=== PATIENT | male | born 2000 | race Two or more races ===

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

== ENCOUNTER 2022-01-14 10:16 | Outpatient (REF) | payer OTHER, SELFPAY ==
--- NOTE | ~2022-01-14 | XR_ITS ---
EXAMINATION: XR BILATERAL HIPS WITH AP PELVIS CLINICAL INFORMATION: Right hip pain COMPARISON: None TECHNIQUE: AP view of the pelvis and single views of each hip were obtained. FINDINGS: The bones and soft tissues are normal. No fracture. Sacroiliac and hip joints are normal. Pubic symphysis is normal. No abnormal soft tissue calcifications. XR/XR hip BI w PEL1V IMPRESSION: Normal pelvis and hips.
== END 2022-01-14 10:17 | disposition home or self-care (01) ==
LOC: HO.XRAY 10:16
PROVIDERS: PCP Pediatrics; Visit Provider Student in an Organized Health Care Education/Training Program
DX: M25.551 Pain in right hip (principal)
CPT/HCPCS: 73521

== ENCOUNTER 2022-07-19 12:28 | Outpatient (REF) | payer MEDICAID, SELFPAY ==
[2022-07-19 14:05] LABS: Appearance Urine Clear; Color Urine Yellow; Glucose Urine UA Negative (Negative); Leukocyte Esterase Urine Negative (Negative); Nitrite Urine Negative (Negative); PH 6.5 (5.0-9.0); Specific Gravity - Urine 1.015 (1.005-1.025); UMIC TRIGGER UACC YES; Urine Blood Trace (Negative); Urine Ketones Negative (Negative); Urine Protein Negative (Neg-Trace)
[2022-07-19 14:11] LABS: Bacteria Urine None Seen (None Seen); Hyaline Casts Urine 0-2 /LPF (0-2); RBC Urine 0-2 /HPF (0-2); Squamous Epithelial Cell Urine 0-2 /HPF (0-2); WBC Urine 0-5 /HPF (0-5)
[2022-07-19 15:19] LABS: Syphilis Screen Nonreactive (Nonreactive)
[2022-07-19 16:05] LABS: CT PCR NOT DETECTED (Not Detect.); NG PCR NOT DETECTED (Not Detect.)
[2022-07-21 04:33] LABS: HBc Num1 0.05 S/CO (0.00-0.79); HBsAGNum1 0.43 S/CO (0.00-0.99); HIV AB/AG Nonreactive (Nonreactive); HIV Num 1 0.09 S/CO (0.00-0.99); Hepatitis B Core Antibody Nonreactive (Nonreactive); Hepatitis B Surface Antigen Negative (Negative); ~HepC Num1 0.18 S/CO (0.00-0.79); ~Hepatitis B Surface Antibody NONREACTIVE (Nonreactive); ~Hepatitis C Antibody Nonreactive (Nonreactive)
== END 2022-07-19 12:29 | disposition home or self-care (01) ==
LOC: HO.WFDLDS 12:28
PROVIDERS: Visit Provider Nurse Practitioner Family
DX: Z11.3 Encounter for screening for infections with a predominantly sexual mode of transmission (principal); Z11.4 Encounter for screening for human immunodeficiency virus [HIV]
CPT/HCPCS: 0353U; 36415; 81001; 81003; 86704; 86706; 86780; 86803; 87340; 87389

== ENCOUNTER 2022-07-20 10:04 | Outpatient (REF) | payer MEDICAID, SELFPAY | END 2022-07-20 10:05 | disposition home or self-care (01) | LOC: HO.LAB 10:04 | PROVIDERS: Visit Provider Nurse Practitioner Family | DX: Z13.89 Encounter for screening for other disorder (principal) ==

== ENCOUNTER 2022-08-02 12:42 | Outpatient (REF) | payer MEDICAID, SELFPAY ==
[2022-08-02 12:52] LABS: MANUAL DIFF FLAG NO
[2022-08-02 13:17] LABS: Basophils Absolute Auto 0.1 X10*3/uL (0.0-0.2); Basophils Percent Auto 0.7 % (0-2); Eosinophils Absolute Auto 0.5 X10*3/uL (0.0-0.4); Eosinophils Percent Auto 6.3 % (0-4); Hematocrit 45.2 % (42.0-52.0); Hemoglobin 14.7 g/dl (14.0-18.0); Imm Gran Abs Auto 0.02 X10*3/uL (0.00-0.03); Imm Gran Pct Auto 0.3 % (0.0-0.4); Lymphocytes Absolute Auto 1.7 X10*3/uL (1.2-4.9); Lymphocytes Percent Auto 22.2 % (20-40); Mean Corpuscular HGB Conc 32.5 g/dl (31.0-36.0); Mean Corpuscular Hemoglobin 27.5 pg (27.0-33.0); Mean Corpuscular Volume 84.5 fL (80.0-98.0); Mean Platelet Volume 9.8 fL (9.4-12.4); Monocytes Absolute Auto 0.6 X10*3/uL (0.1-1.2); Monocytes Percent Auto 7.5 % (2-11); Neutrophils Absolute Auto 4.7 x10*3/uL (2.0-8.3); Platelet Count 325 X10*3/uL (160-400); Red Blood Count 5.35 X10*6/uL (4.60-5.80); Red Cell Distribution Width 13.3 % (11.0-16.0); White Blood Count 7.5 X10*3/uL (4.8-10.8)
[2022-08-02 13:53] LABS: Alanine Aminotransferase 28 U/L (0-40); Albumin Level 4.8 g/dL (3.5-5.0); Alkaline Phosphatase 72 U/L (39-117); Anion Gap 12 (12-20); Aspartate Amino Transferase 21 U/L (5-37); Bilirubin Total 1.7 mg/dL (0.0-1.0); Blood Urea Nitrogen 16 mg/dL (9-16); Calcium 10.2 mg/dL (8.4-10.2); Carbon Dioxide 29 mmol/L (22-29); Chloride 102 mmol/L (96-108); Cholesterol 150 mg/dL; Estimated Glomerular Filt Rate > 60; Glucose Fasting 90 mg/dL (60-99); HDL Cholesterol 51 mg/dL; LDL Cholesterol Calculated 85 mg/dl; Potassium 4.6 mmol/L (3.3-5.1); Sodium 138 mmol/L (135-145); Total Protein 7.7 g/dL (6.5-8.0); Triglycerides 72 mg/dL
[2022-08-02 14:10] LABS: TSH reflex Free T4 0.29 uIU/mL (0.32-4.0)
== END 2022-08-02 12:43 | disposition home or self-care (01) ==
LOC: HO.LAB 12:42
PROVIDERS: PCP Nurse Practitioner Family; Visit Provider Nurse Practitioner Family
DX: Z00.00 Encounter for general adult medical examination without abnormal findings (principal); J45.909 Unspecified asthma, uncomplicated; F41.8 Other specified anxiety disorders; R42 Dizziness and giddiness; H61.23 Impacted cerumen, bilateral
CPT/HCPCS: 36415; 80053; 80061; 84439; 84443; 85025

== ENCOUNTER 2022-10-08 00:42 | Emergency (ER) | payer OTHER, SELFPAY ==
[2022-10-08 01:05] VITALS: BP 121/70; PULSE 120; RESP 20; TEMP 38.2; O2SAT 99; BMI 28.3
--- OUTSIDE RECORDS SUMMARY | 2022-10-08 02:42 | XMS_ITS | Continuity of Care Document ---
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 Role Phone Inan Ordaz Primary Care Physician [phone] Encounter [facility] Date(s): 03/16/20 - 03/17/[address] [address]- Discharge Disposition: A-D/C Home Attending Physician: Freeman Cuevas MD Admitting Physician: Lina MARIEE, Ora Markham Referring Physician: Not on Staff, Referring MD Allergies, Adverse Reactions, Alerts Substance Reaction Severity Status ibuprofen 1 Active Dogs Active Bananas Active Dust Active 1Pt reports GI upset and vomiting each time he takes this medication Immunizations Not Given Vaccine Date Status Refusal Reason influenza virus vaccine, inactivated 12/28/17 Not Given Parent Or Guardian Refuses Medications Aerochamber See Instructions, # 2 each, Maintenance, for use with albuterol inhaler, 12/30/17 9:54:40 EDT, Compound Start Date: 12/30/17 Status: Ordered albuterol 90 mcg/inh inhalation powder See Instructions, PRN Wheezing/Shortness of Breath, 2-6 puffs every four hours as needed, # 2 each,0 Refills, Maintenance, 12/30/17 9:53:53 EDT, Powder, 2-6 puffs every four hours as needed,PRN:Wheezing/Shortness of Breath Start Date: 12/30/17 Status: Ordered aluminum hydroxide/magnesium hydroxide/simethicone 400 mg-400 mg-40 mg/5 mL oral suspension 10 mL, By Mouth, 4 times a day, PRN Dyspepsia, # 150 mL, 0 Refills, Acute 04/26/20 14:54:00 EST, 03/17/20 14:52:00 EST, Suspension, [facility], Partial fill upon patient request if the prescription is for a schedule II opioid drug., 10 m... Start Date: 03/17/20 Stop Date: 04/26/20 Status: Ordered dicyclomine 10 mg oral capsule 1 capsule = 10 mg, By Mouth, 2 times a day, # 60 capsule, 0 Refills, Maintenance, 03/17/20 14:52:00EST, Capsule, [facility], Partial fill upon patient request if the prescription is for a schedule II opioid drug., 163, cm, 03/17/20 11:5... Start Date: 03/17/20 Status: Ordered MiraLax oral powder for reconstitution = 17 Gm, By Mouth, Daily, dissolve in 6 ounces of water before taking, # 255 Gm, 0 Refills, Maintenance, 02/23/20 1:43:00 EST, REC Powder, [id number], Partial fill upon patient request if theprescription is for a schedule II opioid drug., 17... Start Date: 02/23/20 Status: Ordered omeprazole 20 mg oral enteric coated capsule 1 capsule = 20 mg, By Mouth, Daily, # 30 capsule, 0 Refills, Maintenance, 02/23/20 1:40:00 EST, EC Capsule, [id number], Partial fill upon patient request if the prescription is for a scheduleII opioid drug., 166, cm, 02/22/20 21:34:00 EST, He... Start Date: 02/23/20 Status: Ordered Problem List No Known Problems Results Radiology Reports * Exam Date Time Procedure Performing Provider Status 03/16/20 3:55 PM Abdomen Comp Inc Dec ub and/or Erect Ngoc Martinez; Auth (Verified) Notes: (Abdomen Comp Inc Decub and/or Erect) Reason For Exam: Pain RESULT: Abdomen Comp Inc Decub and/or Erect Abdomen Comp Inc Decub and/or Erect INDICATION/CLINICAL QUESTION: Pain; Clinical Question(s): Free Air. Free Air COMPARISON: CT from earlier today. FINDINGS: Normal bowel gas pattern. No evidence of obstruction. Enteric contrast throughout the colon. Contrast in the bladder from prior CT. No evidence of pneumoperitoneum. No organomegaly, masses or calcifications. No acute bone findings. No radiopaque foreign body. IMPRESSION: No evidence of pneumoperitoneum, bowel obstruction, or radiopaque foreign body. WSN: [id number] Ordering Physician: Jolene Savage Dictated By: Jonathan Crump MD Dictated Date/Time: 03/16/20 4:11 pm Reviewed By: Jonathan Crump MD Signed By: Jonathan Crump MD Signed Date/Time: 03/16/20 4:11 pm Transcribed By: JA Transcribed Date/Time: 03/16/20 4:09 pm Vital Signs Most recent to oldest [Reference Range]: 1 2 3 Height 163 cm (03/17/20 4:26 PM) 163 cm (03/17/20 11:56 AM) 163 cm (03/17/20 8:13 AM) Weight 61.9 kg (03/16/20 12:48 PM) 62.0 kg (03/16/20 12:26 PM) 62.0 kg (03/16/20 10:12 AM) Oxygen Saturation [94-100 %] 99 % (03/17/20 4:26 PM) 100 % (03/17/20 11:56 AM) 100 % (03/17/20 8:13 AM) Pulse Rate [55-90 bpm] 53 bpm *L* (03/17/20 4:26 PM) 51 bpm *L* (03/17/20 11:56 AM) 54 bpm *L* (03/17/20 8:13 AM) Body Mass Index [18.5-24.99] 23.3 (03/16/20 12:48 PM) 23.05 (03/16/20 12:26 PM) 23.05 (03/16/20 10:12 AM) Blood Pressure [80-130/50-80 mm Hg] 113/61mm Hg (03/17/20 4:26 PM) 132/70mm Hg *H* (03/17/20 11:56 AM) 130/59mm Hg (03/17/20 8:13 AM) Respiratory Rate [16-30 br/min] 18 br/min (03/17/20 4:26 PM) 18 br/min (03/17/20 11:56 AM) 16 br/min (03/17/20 8:13 AM) Temperature [96.8-100.4 DegF] 98.2 DegF (03/17/20 4:26 PM) 98.0 DegF (03/17/20 11:56 AM) 98.1 DegF (03/17/20 8:13 AM) Mode of Delivery (Oxygen) Room air (03/17/20 4:26 PM) Room air (03/17/20 11:56 AM) Room air (03/17/20 8:13 AM) Blood pressure sites Arm, right (03/17/20 4:26 PM) Arm, right (03/17/20 11:56 AM) Arm, right (03/17/20 8:13 AM) Temperature Route Oral (03/17/20 4:26 PM) Oral (03/17/20 11:56 AM) Oral (03/17/20 8:13 AM) Dry Weight 61.9 kg (03/16/20 12:48 PM) 62.0 kg (03/16/20 12:26 PM) 62.0 kg (03/16/20 10:12 AM) Weight Obtained Via Standing scale (03/16/20 12:48 PM) Standing scale (03/16/20 4:09 AM) Dry Weight Obtained Via Standing scale (03/16/20 12:48 PM) Standing scale (03/16/20 4:09 AM)
--- OUTSIDE RECORDS SUMMARY | 2022-10-08 02:42 | XMS_ITS | Continuity of Care Document ---
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 Role Phone Renae Tovar MDh Primary Care Physician [place] [facility] [place](s[place] 06/29/21 - 06/30/[address] [address]- Encounter Diagnosis Abdominal pain(Final) - 06/30/21 Constipation(Final) - 06/30/21 Discharge Disposition: A-D/C Home Attending Physician: Ponce Gordillo MD Admitting Physician: Ponce Gordillo MD Referring Physician: Not on Staff, Referring MD Allergies, Adverse Reactions, Alerts Substance Reaction Severity Status ibuprofen 1 Active aspirin Unknown body region Active Dust Active Avocado Unknown body region Active Bananas Active Dogs Active 1Pt reports GI upset and vomiting [...] Date: 12/30/17 Status: Ordered aluminum hydroxide/magnesium hydroxide/simethicone 200 mg-200 mg-20 mg/5 mL oral suspension 10 mL, By Mouth, 4 times a day, PRN for control of stomach acid, # 400 mL, 0 Refills, Maintenance, 06/26/21 23:06:00 EDT, Suspension, [facility]/pharmacy #[id number], Partial fill upon patient request if the prescription is for a schedule II opioid drug., 10 mL By... Start Date: 06/26/21 Status: Ordered dicyclomine 10 mg oral capsule 1 capsule = 10 mg, By Mouth, 2 times a day, # 60 capsule, 0 Refills, Maintenance, 03/17/20 14:52:00EST, Capsule, [facility], Partial fill upon patient request if the prescription is for a schedule II opioid drug., 163, cm, 03/17/20 11:5... Start Date: 03/17/20 Status: Ordered famotidine 20 mg oral tablet 20 mg, 1, tablet, By Mouth, Daily, # 30 tablet, Refills 0, Tot. Refills 0, Maintenance, 06/30/21 6:18:00 EDT, Route to Pharmacy Electronically, [facility]/pharmacy #[id number], Partial fill upon patient request if the prescription is for a schedule II opioid drug.... Start Date: 06/30/21 Stop Date: 07/30/21 Status: Ordered Milk of Magnesia 8% oral suspension 30 mL = 2.4 Gm, By Mouth, Daily, PRN for constipation, for 3 days, # 100 mL, 0 Refills, Acute 07/03/21 6:24:00 EDT, 06/30/21 6:24:00 EDT, Suspension, [facility]/pharmacy #[id number], Partial fill upon patient request if the prescription is for a schedule II opioid... Start Date: 06/30/21 Stop Date: 07/03/21 Status: Ordered MiraLax oral powder for reconstitution = 17 Gm, By Mouth, Daily, for 30 days, dissolve in water or another drink before taking. Increase to two capfuls daily if needed to have one soft bowel movement daily, # 527 Gm, 0 Refills, Acute 07/30/21 6:18:00 EDT, 06/30/21 6:18:00 EDT, REC Powder,... Start Date: 06/30/21 Stop Date: 07/30/21 Status: Ordered MiraLax oral powder for reconstitution = 17 Gm, By Mouth, Daily, dissolve in 6 ounces of water before taking, # 255 Gm, 0 Refills, Maintenance, 02/23/20 1:43:00 EST, REC Powder, [id number], Partial fill upon patient request [...] Exam Date Time Procedure Performing Provider Status 06/30/21 6:11 AM Abdomen Comp Inc Dec ub and/or Erect Annie Villar; Auth (Verified) Notes: (Abdomen Comp Inc Decub and/or Erect) Reason For Exam: Pain RESULT: Abdomen Comp Inc Decub and/or Erect Abdomen Comp Inc Decub and/or Erect 1 view INDICATION/CLINICAL QUESTION: Hx of Present Illness: Pt with history of IBS with flaring x5 days. States he has been unable to eat x5-6 days. Pt c o difuse abdominal pain. Any PO exacerbates the pain. Now c o general fatigue. Pt also c o constipation.; Reason: Pain; Clinical Question(s): Obstruction; free air; Special Instructions: Flat COMPARISON: 03/16/2020 FINDINGS: No dilated bowel loops are seen. A moderate stool burden is noted within the colon. There are no air-fluid levels. No free air is seen. The osseous structures are unremarkable. IMPRESSION: Nonspecific, nonobstructive bowel gas pattern. WSN: [id number] Ordering Physician: Meredith Calvert Dictated By: Maria Victoria Pat MD Dictated Date/Time: 06/30/21 7:19 am Reviewed By: Maria Victoria Pat MD Signed By: Maria Victoria Pat MD Signed Date/Time: 06/30/21 7:19 am Transcribed By: JA Transcribed Date/Time: 06/30/21 7:18 am Vital Signs Most recent to oldest [Reference Range]: 1 2 3 Height 165 cm (06/29/21 5:11 PM) 165 cm (06/29/21 2:38 PM) Oxygen Saturation [94-100 %] 100 % (06/30/21 7:31 AM) 98 % (06/30/21 5:42 AM) 97 % (06/30/21 4:45 AM) Pulse Rate [55-90 bpm] 61 bpm (06/30/21 7:31 AM) 48 bpm *L* (06/30/21 5:42 AM) 46 bpm *L* (06/30/21 4:45 AM) Blood Pressure [90-138/55-84 mm Hg] 136/74mm Hg (06/30/21 7:31 AM) 114/69mm Hg (06/30/21 5:42 AM) 110/66mm Hg (06/30/21 4:45 AM) Respiratory Rate [16-30 br/min] 20 br/min (06/30/21 7:31 AM) 13 br/min *L* (06/30/21 5:42 AM) 14 br/min *L* (06/30/21 4:45 AM) Temperature [96.8-100.4 DegF] 97.7 DegF (06/30/21 2:46 AM) 98.4 DegF (06/30/21 1:16 AM) 98.4 DegF (06/29/21 11:00 PM) Mode of Delivery (Oxygen) Room air (06/30/21 7:31 AM) Room air (06/30/21 5:42 AM) Room air (06/30/21 4:45 AM) Blood pressure sites Arm, right (06/30/21 7:31 AM) Arm, right (06/30/21 5:42 AM) Arm, right (06/30/21 4:45 AM) Temperature Route Oral (06/30/21 2:46 AM) Oral (06/30/21 1:16 AM) Oral (06/29/21 11:00 PM)
--- OUTSIDE RECORDS SUMMARY | 2022-10-08 02:42 | XMS_ITS | Continuity of Care Document ---
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 Phone Renae Tovar MDh Primary Care Physician [place] [facility] [place]04[place] - 07/04/[address] [address]- Encounter Diagnosis Fatigue(Final) - 07/04/21 Abdominal pain(Final) - 07/04/21 Discharge Disposition: A-D/C Home Attending Physician: Shefali Campbell MD Admitting Physician: Shefali Campbell MD Referring Physician: Not on Staff, Referring MD Allergies, Adverse Reactions, Alerts Substance Reaction Severity Status ibuprofen 1 Active aspirin Unknown body region Active Dust Active Bananas Active Avocado Unknown body region Active Dogs Active 1Pt reports GI upset [...] 0 Refills, Maintenance, 06/26/21 23:06:00 EDT, Suspension, [id number], Partial fill upon patient request if the prescription is for a schedule II opioid drug., 10 mL By... Start Date: 06/26/21 Status: Ordered dicyclomine 10 mg oral capsule 1 capsule = 10 mg, By Mouth, 2 times a day, # 60 capsule, 0 Refills, Maintenance, 03/17/20 14:52:00EST, Capsule, [facility], Partial fill upon patient request if the prescription is for a schedule II opioid drug., 163, cm, 03/17/20 11:5... Start Date: 03/17/20 Status: Ordered famotidine 20 mg oral tablet 20 mg, 1, tablet, By Mouth, Daily, # 30 tablet, Refills 0, Tot. Refills 0, Maintenance, 06/30/21 6:18:00 EDT, Route to Pharmacy Electronically, [facility]/pharmacy #[id number], Partial fill upon patient request if [...] Refills, Maintenance, 02/23/20 1:43:00 EST, REC Powder, [facility]/pharmacy #[id number], Partial fill upon patient request if [...] scheduleII opioid drug., 166, cm, 02/22/20 21:34:00 He. FREYA.. Start Date: 02/23/20 Status: Ordered Problem List No Known Problems Vital Signs Most recent to oldest [Reference Range]: 1 2 3 Oxygen Saturation [94-100 %] 100 % (07/04/21 5:15 PM) 99 % (07/04/21 2:58 PM) 99 % (07/04/21 2:52 PM) Pulse Rate [55-90 bpm] 56 bpm (07/04/21 5:15 PM) 69 bpm (07/04/21 2:58 PM) 98 bpm *H* (07/04/21 2:52 PM) Blood Pressure [90-138/55-84 mm Hg] 116/61mm Hg (07/04/21 5:15 PM) 121/62mm Hg (07/04/21 2:58 PM) Respiratory Rate [16-30 br/min] 13 br/min *L* (07/04/21 5:15 PM) 14 br/min *L* (07/04/21 2:58 PM) Temperature [96.8-100.4 DegF] 98.3 DegF (07/04/21 2:58 PM) Mode of Delivery (Oxygen) Room air (07/04/21 5:15 PM) Room air (07/04/21 2:58 PM) Room air (07/04/21 2:52 PM) Blood pressure sites Arm, right (07/04/21 5:15 PM) Arm, right (07/04/21 2:58 PM) Temperature Route Oral (07/04/21 2:58 PM)
--- OUTSIDE RECORDS SUMMARY | 2022-10-08 02:42 | XMS_ITS | Continuity of Care Document ---
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 Phone Guy MARIEE, [facility] Primary Care Physician En[place] [facility] [place] Date(s): 06/26/21 - 06/27/[address] [address]- Discharge Disposition: A-D/C Home Attending Physician: Meredith Barker MD Admitting Physician: Meredith Barker MD Referring Physician: Not on Staff, Referring MD Allergies, Adverse Reactions, Alerts Substance Reaction Severity Status ibuprofen 1 Active Dogs Active Dust Active Bananas Active 1Pt reports GI upset and vomiting [...] Refills, Maintenance, 06/26/21 23:06:00 EDT, [facility], [id number], Partial fill upon patient request if the prescription is for a schedule II opioid drug., 10 mL By... Start Date: 06/26/21 Status: Ordered dicyclomine 10 mg oral capsule 1 capsule = 10 mg, By Mouth, 2 times a day, # 60 capsule, 0 Refills, Maintenance, 03/17/20 14:52:00EST, Capsule, [facility], Partial fill upon patient request if the prescription is for a schedule II opioid drug., 163, cm, 03/17/20 11:5... Start Date: 03/17/20 Status: Ordered MiraLax oral powder for reconstitution = 17 Gm, By Mouth, Daily, dissolve in 6 ounces of water before taking, # 255 Gm, 0 Refills, Maintenance, 02/23/20 1:43:00 EST, REC Powder, [facility]/pharmacy #[id number], Partial fill upon patient [...] Exam Date Time Procedure Performing Provider Status 06/26/21 8:06 PM Chest Portable Ngoc Sneed; Auth (Ve rified) Notes: (Chest Portable) Reason For Exam: Shortness of Breath RESULT: Chest Portable Chest Portable Hx of Present Illness: Pt states SOB and chest pain for the past three years. today also lower abd pain, hx of constipation. Came in today because he jsut couldn't take it.; Reason: Shortness of Breath; Clinical Question(s): CHF COMPARISON: 02/22/2020 FINDINGS: LINES AND TUBES: None. LUNGS AND PLEURA: The lungs are clear. No pleural effusion. No pneumothorax. HEART, MEDIASTINUM AND HELENA: Normal. BONES AND SOFT TISSUES: Normal. IMPRESSION: Normal. WSN: [id number] Ordering Physician: Ruchi Jha Dictated By: Jonathan Olivas MD Dictated Date/Time: 06/26/21 8:05 pm Reviewed By: Jonathan Olivas MD Signed By: Jonathan Olivas MD Signed Date/Time: 06/26/21 8:05 pm Transcribed By: JA Transcribed Date/Time: 06/26/21 8:05 pm Vital Signs Most recent to oldest [Reference Range]: 1 2 3 Oxygen Saturation [94-100 %] 100 % (06/26/21 11:51 PM) 100 % (06/26/21 9:30 PM) 100 % (06/26/21 5:00 PM) Pulse Rate [55-90 bpm] 84 bpm (06/26/21 11:51 PM) 78 bpm (06/26/21 9:30 PM) 91 bpm *H* (06/26/21 5:00 PM) Blood Pressure [90-138/55-84 mm Hg] 116/67mm Hg (06/26/21 11:51 PM) 131/65mm Hg (06/26/21 9:30 PM) 127/88mm Hg (06/26/21 5:00 PM) Respiratory Rate [16-30 br/min] 16 br/min (06/26/21 11:51 PM) 16 br/min (06/26/21 9:30 PM) 16 br/min (06/26/21 5:00 PM) Temperature [96.8-100.4 DegF] 98.1 DegF (06/26/21 5:00 PM) Mode of Delivery (Oxygen) Room air (06/26/21 9:30 PM) Room air (06/26/21 4:54 PM) Blood pressure sites Arm, right (06/26/21 11:51 PM) Arm, left (06/26/21 9:30 PM) Arm, right (06/26/21 5:00 PM) Temperature Route Oral (06/26/21 5:00 PM)
[2022-10-08 02:49] LABS: COVID-19 Test Negative (Negative); IDNOW Serial# 6674DD1D
--- NOTE | 2022-10-08 03:22 | ED_ITS ---
HPI - General Adult General Chief complaint: General Medical Stated complaint: COVID+? Time Seen by Provider: 10/08/22 02:22 Source: patient Mode of arrival: ambulatory Limitations: no limitations History of Present Illness HPI narrative: Patient other health today complaining of sore throat body aches nasal discharge already been vaccinated no sick contact patient does have a history of fibromyalgia at fever of 100.7 on arrival Related Data Home Medications Medication Instructions Recorded Confirmed loratadine 10 mg tablet 1 tab PO DAILY 10/28/21 07/19/22 budesonide-formoterol HFA 160 2 puff inhalation BID 01/14/22 07/19/22 mcg-4.5 mcg/actuation aerosol inhaler (Symbicort) albuterol sulfate 90 mcg/actuation 2 puff inhalation Q6H PRN 07/19/22 aerosol inhaler econazole 1 % topical cream appl topical 07/19/22 omeprazole 40 mg capsule,delayed 40 mg PO DAILY 07/19/22 release sennosides 8.6 mg tablet (Senna 17.2 mg PO BEDTIME 07/19/22 Laxative) tacrolimus 0.1 % topical ointment topical BID PRN 07/19/22 triamcinolone acetonide 0.1 % topical 07/19/22 topical ointment Previous Rx's Medication Instructions Recorded albuterol sulfate 90 mcg/actuation 2 puff inhalation Q4-6H PRN 09/06/22 aerosol inhaler (Ventolin HFA) shortness of breath or wheezing #8.5 grams amoxicillin 875 mg-potassium 1 tab PO BID #20 tabs 10/08/22 clavulanate 125 mg tablet benzonatate 200 mg capsule 200 mg PO TID PRN cough #30 caps 10/08/22 Allergies Allergy/AdvReac Type Severity Reaction Status Date / Time ibuprofen [IBUPROFEN] Allergy Intermediate ABD PAIN Verified 07/19/22 11:31 AND REFLUX aspirin [ASA] Allergy Swelling Verified 07/19/22 11:31 avocado Allergy Swelling Verified 07/19/22 11:31 banana Allergy Anaphylaxis Verified 07/19/22 11:31 gluten Allergy Abdominal Verified 07/19/22 11:31 Pain house dust Allergy Unknown Verified 07/19/22 11:31 lactose Allergy Abdominal Verified 07/19/22 11:31 Pain seasonal Allergy Unknown unknown Uncoded 07/19/22 11:31 Review of Systems Review of Systems: Yes all other systems are reviewed and are negative [facility] Past Medical History Medical History Anxiety Asthma Constipation Depression Epidermal inclusion cyst Surgical History H/O endoscopy Hx of colonoscopy Family History Family History Mother Anxiety Depression Maternal Grandfather Substance abuse Maternal Grandmother Anxiety Depression Father Arthritis Social History Social History Household Members: Family Housing: House Alcohol intake: current Alcohol intake frequency: holidays/special occasions only Alcohol type: hard liquor Patient Tobacco Use Status: Current everyday Tobacco user Tobacco use type: Cigarette Cigarettes Per Day: 5 e-Cigarette/Vaping Use: Currently Using Substance Use Type: Marijuana Advance Directives: No Advance Directives Information Provided: Yes service: No Current occupational status: unemployed 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 Oriented X3. No acute distress. ENT: Pharynx erythema enlarged tonsils no exudate,Oral Mucosa moist Neck: Normal inspection. Neck supple. CVS: Normal heart rate and rhythm. Pulses normal. Respiratory: No respiratory distress. Equal air entry bilateral, no wheezing/rales/rhonchi Abdomen: Soft and nontender. Bowel sounds are present, Skin: Skin warm and dry. Normal skin color. Normal skin turgor. Extremities: No lower extremity edema. No calf tenderness Neuro: Oriented X 3. Medical Decision Making Medical Decision Making MDM Narrative: Patient with pharyngitis/tonsillitis with enlarged tonsils discharge patient home on Augmentin Lab Data MDM Lab Attestation statement: I reviewed the patient's lab results. Labs: Lab Results 10/08/22 10/08/22 Range/Units 02:29 03:38 COVID-19 (TARUN) Negative (Negative) COVID-19 Clin Com See Note S. pyogenes GrpA KAREN Negative (Negative) Discharge Plan Discharge Clinical Impression: Acute bacterial pharyngitis Patient Disposition: Home, Self-Care Instructions: Pharyngitis (ED) Additional Instructions: Take antibiotics and Tessalon as prescribed Drink plenty of fluids Ibuprofen for pain and/fever Follow with PCP Prescriptions: New benzonatate 200 mg capsule 200 mg PO TID PRN (Reason: cough) Qty: 30 0RF amoxicillin-pot clavulanate 875-125 mg tablet 1 tab PO BID Qty: 20 0RF No Action albuterol sulfate [Ventolin HFA] 90 mcg/actuation HFA aerosol inhaler 2 puff inhalation Q4-6H PRN (Reason: shortness of breath or wheezing) Qty: 8.5 0RF loratadine 10 mg tablet 1 tab PO DAILY triamcinolone acetonide 0.1 % ointment topical econazole 1 % cream topical tacrolimus 0.1 % ointment topical BID PRN albuterol sulfate 90 mcg/actuation HFA aerosol inhaler 2 puff inhalation Q6H PRN sennosides [Senna Laxative] 8.6 mg tablet 17.2 mg PO BEDTIME omeprazole 40 mg capsule,delayed release(DR/EC) 40 mg PO DAILY budesonide-formoterol [Symbicort] 160-4.5 mcg/actuation HFA aerosol inhaler 2 puff inhalation BID
[2022-10-08 03:50] LABS: IDNOW Serial# 6674DD1D; Strep A Nucleic Acid Negative (Negative)
[2022-10-08] MEDS: Amoxicillin/Potassium Clav 875 MG TABLET PO (04:38)
[2022-10-08] MEDS: guaiFEN/Codeine SF 200/20/10ML 10 ML LIQUID PO (04:38)
[2022-10-08 04:43] VITALS: PULSE 116; RESP 20; TEMP 36.9; O2SAT 97
--- NOTE | 2022-10-08 04:43 | PC.NURSE ---
pt medicated per may prior to discharge - pt ambulates with steady gait to and from bathroom and out of treatment room no apparent respiratory distress. encouraged to drink plenty of fluids, take full course of antibiotic as prescribed and use tylenol for fevers.
== END 2022-10-08 04:46 | disposition home or self-care (01) ==
PROVIDERS: Emergency Provider Internal Medicine; PCP Family Medicine
DX: J02.9 Acute pharyngitis, unspecified (principal); Z20.822 Contact with and (suspected) exposure to COVID-19; F17.210 Nicotine dependence, cigarettes, uncomplicated; F12.90 Cannabis use, unspecified, uncomplicated
CPT/HCPCS: 87635; 87651; 99282; 99283

== ENCOUNTER 2022-10-18 12:53 | Outpatient (AMB) | payer OTHER, SELFPAY ==
[2022-10-18 13:00] VITALS: BP 110/68; PULSE 104; RESP 12; TEMP 37.2; O2SAT 98; BMI 26.8
--- NOTE | 2022-10-18 13:00 | A.OFFPC_ITS ---
Vital Signs 10/18/22 13:00 Height 5 ft 5.5 in Weight 163 lb 4 oz BMI 26.8 BP 110/68 Blood Pressure Location Lt brachial Position Sitting Respiration 12 Pulse 104 H Pulse Source Pulse Oximeter Temp 98.9 F Pulse Oximetry (%) 98 Oxygen Delivery Method Room Air Intake Visit Reasons: ed follow up Intake Note: Patient was in the ED due to an intense fever due to pharyngitis. Patient was prescribed Amoxicillin and Clavulanate 875 MG/ 125Mg and has taken his last pill today and still feels like the symptoms come and go. Pulp Roller Required: No Accompanied by: Self / Same As Patient Allergies ibuprofen [IBUPROFEN] Allergy (Intermediate, Verified 10/18/22 13:35) ABD PAIN AND REFLUX aspirin [ASA] Allergy (Verified 10/18/22 13:35) Swelling avocado Allergy (Verified 10/18/22 13:35) Swelling banana Allergy (Verified 10/18/22 13:35) Anaphylaxis gluten Allergy (Verified 10/18/22 13:35) Abdominal Pain house dust Allergy (Verified 10/18/22 13:35) Unknown lactose Allergy (Verified 10/18/22 13:35) Abdominal Pain seasonal Allergy (Unknown, Uncoded 10/18/22 13:35) unknown Medication List - Last Reconciled 10/18/22 by Lashaun Williamson CNP albuterol sulfate 90 mcg/actuation 2 puffs inhalation Q6H PRN albuterol sulfate 90 mcg/actuation (Ventolin HFA) 2 puffs inhalation Q4-6H PRN amoxicillin-pot clavulanate 875-125 mg 1 tab PO BID benzonatate 200 mg PO TID PRN budesonide-formoterol 160-4.5 mcg/actuation (Symbicort) 2 puffs inhalation BID loratadine 1 tab PO DAILY omeprazole 40 mg PO DAILY sennosides (Senna Laxative) 17.2 mg PO BEDTIME triamcinolone acetonide 0.1% topical Tobacco use date assessed: 07/19/22 Dental Screening Dental Screen Date: 10/18/22 Did you have a dental visit in the last 12 months?: No Did you have a dental problem in the last 6 months where you did not have access to dental care?: No Was dental information given to patient?: Patient has dentist HPI HPI Comments History of Present Illness Details 22-year-old male presents for follow-up visit. He was evaluated at [facility] [place] 10/08/2022 for complaints of sore throat, body aches, and nasal discharge. He was diagnosed with acute bacterial pharyngitis and was Augmentin. He notes that he finished the last dose of antibiotics today. He denies sore throat. However, he reports intermittent fevers. [facility] Medical History Anxiety Asthma Constipation Depression Epidermal inclusion cyst Surgical History H/O endoscopy Hx of colonoscopy Family History Mother Anxiety Depression Maternal Grandfather Substance abuse Maternal Grandmother Anxiety Depression Father Arthritis Social History Household Members: Family Housing: House Alcohol intake: current Alcohol intake frequency: holidays/special occasions only Alcohol type: hard liquor Patient Tobacco Use Status: Current everyday Tobacco user Tobacco use type: Cigarette Cigarettes Per Day: 5 e-Cigarette/Vaping Use: Currently Using Substance Use Type: Marijuana service: No Current occupational status: employed 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 Ricky Jennings, Laura Giron, Khoa Steiner and colleagues, with an educational claude from [employer]. Review of Systems Const Details: Denies chills, Denies fatigue, Denies fever(s), Denies headache(s) and Denies weakness ENT Denies dizziness and Denies headache(s) Card Denies chest pain, Denies lightheadedness, Denies dyspnea and Denies other (Palpitations) Resp Denies cough, Denies dyspnea, Denies wheezing and Denies other ( shortness of breath) GI Denies abdominal pain, Denies melena, Denies hematochezia, Denies change in bowel habits, Denies dyspepsia and Denies nausea Denies hematuria and Denies dysuria Musc Denies abnormal gait, Denies myalgias, Denies arthralgias, Denies numbness and Denies tingling Skin/Breast Denies rash, Denies unusual bruising and Denies wounds Neuro Denies abnormal gait, Denies dizziness, Denies headache(s), Denies memory loss, Denies numbness, Denies Sensory deficit (Neuro), Denies tingling and Denies weakness Psych Denies anxiety and Denies depression Endo Denies fatigue Aller/Immun Denies wheezing Physical exam (Primary Care) Vital Signs: Last Vital Signs Temp 98.9 F 10/18/22 13:00 Pulse 104 H 10/18/22 13:00 Resp 12 10/18/22 13:00 BP 110/68 10/18/22 13:00 Pulse Ox 98 10/18/22 13:00 Oxygen Delivery Method Room Air 10/18/22 13:00 BMI result Body Mass Index 26.8 Tobacco/Smoking Status: Tobacco use Status Tobacco use date assessed 07/19/22 10/18/22 13:12 Patient Tobacco Use Status Current everyday Tobacco 10/18/22 13:12 Tobacco use type Cigarette 10/18/22 13:12 e-Cigarette/Vaping Use Currently Using 10/18/22 13:12 Thrive Assessment: Date of Thrive Assessment Date Thrive assessed 07/19/22 10/18/22 13:12 Const Other: General: no acute distress and well developed Nutritional Appearance: well nourished Orientation/consciousness: patient oriented x3 HENMT Head: Yes normocephalic and Yes atraumatic Eyes General: appearance normal, both eyes and all related structures Pupils: Equal, round and reactive pupils present EOM: EOMs intact bilaterally Resp Effort & Inspection: normal respiratory effort Auscultation: clear to auscultation bilaterally Cardio Rate: regular rate Rhythm: regular rhythm Heart sounds: S1 normal heart sound present, S2 normal heart sound present, no gallops, no murmurs and no rubs GI Palpation (GI): No Abdominal aortic bruit present, Soft to palpation, nontender, No hepatosplenomegaly present and No Rebound tenderness present Auscultation: normal bowel sounds General: Yes no CVA tenderness Back/Spine/Pelvis Back: no CVA tenderness Cervical Spine: cervical ROM normal and No Cervical spine tenderness Thoracic/Lumbar Spine: thoraco-lumbar ROM normal, No pain with thoraco-lumbar ROM, No thoracic spinal tenderness and No lumbar spinal tenderness Extrem General: Yes normal to inspection, No edema and No calf tenderness Skin General: warm and dry. Normal skin color. Normal skin turgor Lesions: no lesions Rashes: no rashes Trauma: no lacerations or abrasions Wounds: no wounds Nails: normal Neuro General: patient oriented x3, gait normal and no focal neuro deficit Cranial nerves: Yes Equal, round and reactive pupils present Cognition (Neuro): normal cognition Gait exam (Neuro): Normal gait present Sensory Exam: No Sensory deficit (Neuro) Psych Affect: normal affect Assessment and Plan Assessment & Plan (1) Acute bacterial pharyngitis: Code(s): J02.8 - Acute pharyngitis due to other specified organisms; B96.89 - Other specified bacterial agents as the cause of diseases classified elsewhere Plan: Resolved Follow-up in 1-2 months for anxiety and depression or return sooner symptoms or concerns Verbalized understanding and agreed with the treatment plan. Coding Level of Care Code Est Pt Level 3 (18017) Diagnoses Acute bacterial pharyngitis J02.8; B96.89
== END 2022-10-18 13:56 | disposition home or self-care (01) ==
PROVIDERS: PCP Family Medicine; Visit Provider Nurse Practitioner Family
DX: J02.8 Acute pharyngitis due to other specified organisms (principal); B96.89 Other specified bacterial agents as the cause of diseases classified elsewhere
CPT/HCPCS: 99213

== ENCOUNTER 2022-12-01 09:34 | Outpatient (AMB) | payer OTHER, SELFPAY ==
--- NOTE | 2022-12-01 09:39 | A.OFFPC_ITS ---
Vital Signs 12/01/22 09:41 Height 5 ft 5.5 in Weight 169 lb 8 oz BMI 27.8 BP 118/66 Blood Pressure Location Lt brachial Position Sitting Respiration 18 Pulse 94 Pulse Source Pulse Oximeter Temp 98.7 F Temp Source Temporal Artery Scan Pulse Oximetry (%) 99 Oxygen Delivery Method Room Air Intake Visit Reasons: 1-2 month anxiety/depression Intake Note: Patient is here to follow up regarding his anxiety and depression. Patient reported upon arrival it was difficult to breathe and he didn't have time to use his inhaler prior to leaving the house this morning. This headline writer asked for an urgent evaluation by the provider in the office and was further instructed to give patient a nebulizer treatment. Nebulizer tx started 9:39. Patient stopped and restarted flow several times during treatment. Nebulizer treatment ended at 10:19. Patient requests a referral for pulmonology and would furthermore like to start nicotine patches to aid in smoking cessation. Patient reports he notices it is easier to breathe when he presses on the side of his throat and/or RUQ of abdomen. Patient reports he has had bumps on bilateral eyelids and would like to have this evaluated today. Office Services Assistant Required: No Accompanied by: Self / Same As Patient Allergies ibuprofen [IBUPROFEN] Allergy (Intermediate, Verified 12/01/22 10:09) ABD PAIN AND REFLUX aspirin [ASA] Allergy (Verified 12/01/22 10:09) Swelling avocado Allergy (Verified 12/01/22 10:09) Swelling banana Allergy (Verified 12/01/22 10:09) Anaphylaxis gluten Allergy (Verified 12/01/22 10:09) Abdominal Pain house dust Allergy (Verified 12/01/22 10:09) Unknown lactose Allergy (Verified 12/01/22 10:09) Abdominal Pain seasonal Allergy (Unknown, Uncoded 10/18/22 13:35) unknown Tobacco use date assessed: 07/19/22 Dental Screening Dental Screen Date: 12/01/22 Did you have a dental visit in the last 12 months?: Yes Did you have a dental problem in the last 6 months where you did not have access to dental care?: No Was dental information given to patient?: Patient has dentist HPI 1-2 month anxiety/depression HPI Details 22 y/o male presents to f/u anxiety/depr ession. Pt has a hx of asthma and does report an asthma exacerbation today. He reports he did not take his inhalers this morning. He is not on anything for his anxiety/depression. Pt would like to start nicotine patches to aid in smoking cessation. He reports he smokes 3 cigarettes a day. Pt reports tightness in his throat that has been an ongoing issue. Pt reports random bruising throughout his legs. Pt reports a form of dissociation that he states has been worrying him. He reports he has not been sleeping well. [facility] Medical History Anxiety Asthma Constipation Depression Epidermal inclusion cyst Surgical History H/O endoscopy Hx of colonoscopy Family History Mother Anxiety Depression Maternal Grandfather Substance abuse Maternal Grandmother Anxiety Depression Father Arthritis Social History Household Members: Family Housing: House Alcohol intake: current Alcohol intake frequency: holidays/special occasions only Alcohol type: hard liquor Patient Tobacco Use Status: Current everyday Tobacco user Tobacco use type: Cigarette Cigarettes Per Day: 5 e-Cigarette/Vaping Use: Currently Using Substance Use Type: Marijuana service: No Current occupational status: employed 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 1. Little interest or pleasure in doing things: nearly every day 2. Feeling down, depressed, or hopeless: several days 3. Trouble falling or staying asleep, or sleeping too much: nearly every day 4. Feeling tired or having little energy: nearly every day 5. Poor appetite or overeating: more than half the days 6. Feeling bad about yourself - or that you are a failure or have let yourself or your family down: nearly every day 7. Trouble concentrating on things, such as reading the newspaper or watching television: not at all 8. Moving or speaking so slowly that other people could have noticed. Or the opposite - being so fidgety or restless that you have been moving around a lot more than usual: not at all 9. Thoughts that you would be better off or of hurting yourself in some way: not at all Total score: 15 Depression Screening Interpretation: Positive 89502 - PHQ-9 Billing: Yes Source: Developed by Drs. Ricky Jennings, Laura Giron, Khoa Steiner and colleagues, with an educational claude from [employer]. Thrive Questionnaire Date Thrive assessed: 07/19/22 PAULA-7 AMB Questionnaire PAULA-7 Date PAULA - 7 assessed: 07/19/22 Feeling nervous, anxious, or on edge: 1 = Several days Not being able to stop or control worryin = Several days Worrying too much about different things: 3 = Nearly every day Trouble relaxin = Several days Being so restless that it is hard to sit still: 0 = Not at all Becoming easily annoyed or irritable: 1 = Several days Feeling afraid as if something awful might happen: 1 = Several days Total PAULA-7 score (0-4 normal; 5-9 mild; 10-14 moderate; 15-21 severe): 8 Source: Developed by Drs. Ricky Jennings, Laura Giron, Khoa Steiner and colleagues, with an educational claude from [employer]. PAULA-7 Assessment Billing PAULA-7 Assessment Tool: PAULA-7 Assessment 58727 Review of Systems Const Denies chills, Denies fatigue, Denies fever(s), Denies headache(s) and Denies weakness ENT Denies dizziness and Denies headache(s) Card Denies chest pain, Denies lightheadedness, Denies dyspnea and Denies other (Palpitations) Resp Denies cough, Denies dyspnea, Denies wheezing and Denies other ( shortness of breath) Musc Denies numbness and Denies tingling Neuro Denies dizziness, Denies headache(s), Denies numbness, Denies tingling, Denies paresthesias and Denies weakness Psych Reports anxiety and Reports depression Endo Denies fatigue Aller/Immun Denies wheezing Physical exam (Primary Care) Vital Signs: Last Vital Signs Temp 98.7 F 12/01/22 09:41 Pulse 94 12/01/22 09:41 Resp 18 12/01/22 09:41 BP 118/66 12/01/22 09:41 Pulse Ox 99 12/01/22 09:41 Oxygen Delivery Method Room Air 12/01/22 09:41 BMI result Body Mass Index 27.8 Tobacco/Smoking Status: Tobacco use Status Tobacco use date assessed 07/19/22 12/01/22 09:39 Patient Tobacco Use Status Current everyday Tobacco 12/01/22 09:39 Tobacco use type Cigarette 12/01/22 09:39 e-Cigarette/Vaping Use Currently Using 12/01/22 09:39 PHQ-9: PHQ-9 Score PHQ-9: Total score 15 12/01/22 10:40 Depression Screening Interpretation: Positive Thrive Assessment: Date of Thrive Assessment Date Thrive assessed 07/19/22 12/01/22 09:39 Const General: no acute distress and well developed Nutritional Appearance: well nourished Orientation/consciousness: patient oriented x3 HENMT Head: Yes normocephalic and Yes atraumatic Eyes General: appearance normal, both eyes and all related structures Pupils: Equal, round and reactive pupils present EOM: EOMs intact bilaterally Resp Other: Wheezing L lung field Effort & Inspection: normal respiratory effort Auscultation: clear to auscultation bilaterally Cardio Rate: regular rate Rhythm: regular rhythm Heart sounds: S1 normal heart sound present, S2 normal heart sound present, no gallops, no murmurs and no rubs Neuro General: patient oriented x3 and gait normal Cranial nerves: Yes Equal, round and reactive pupils present Psych Affect: normal affect Assessment and Plan Assessment & Plan (1) Depression with anxiety: Code(s): F41.8 - Other specified anxiety disorders Plan: Patient acknowledges longstanding severe anxiety and depression He has his he has tried numerous SSRI medications Will try Abilify Will get him back in 1 week Patient has significant anxiety and depression. He has numerous somatic complaints which may be secondary to his mood disorder. Will follow-up in 1 week and discuss further. Patient should likely have a therapist and psychiatrist as well. (2) Smoker: Code(s): F17.200 - Nicotine dependence, unspecified, uncomplicated Plan: Asthmatic with exacerbations and patient still smoking 5-10 cigarettes a day Start patch and work at cessation (3) Asthma exacerbation: Code(s): J45.901 - Unspecified asthma with (acute) exacerbation Plan: Gave patient an albuterol neb in office today with good affect. Still has some wheezing Start prednisone taper Refilled his albuterol inhaler and advised him to use it up to every 4 hours Continue Symbicort (4) Chalazion: Code(s): H00.19 - Chalazion unspecified eye, unspecified eyelid Plan: Will refer to ophthalmology In the meantime he can use warm compresses and erythromycin ointment (5) Throat tightness: Code(s): R09.89 - Other specified symptoms and signs involving the circulatory and respiratory systems Plan: Throat tightness and globus sensation Referred to ENT (6) Bruising: Code(s): T14.8XXA - Other injury of unspecified body region, initial encounter Plan: Concerns for bruising but he has no dependent tracking of bruises or nose bleeds or bleeding of gums. No blood in stool Will check CBC Doubt any clotting disorders (7) Difficulty sleeping: Code(s): G47.9 - Sleep disorder, unspecified Plan: As above, will trial Abilify (8) Weakness of right upper extremity: Code(s): R29.898 - Other symptoms and signs involving the musculoskeletal system Plan: Complaint of right arm weakness. Cranial nerves intact and reflexes intact in all 4 extremities. Doubt central nervous lesion. Question peripheral nervous lesion verses somatic complaints secondary to anxiety or depression. He has seen neurology in the past and I will ask them to see him again. Orders: Orders Microalbumin, Random (w Creat) Today I10 - Essential (primary) hypertension UA and rflx microscopic Today Z00.00 - Encounter for general adult medical examination without abnormal findings Comprehensive Met. Panel Today T14.8XXA - Other injury of unspecified body region, initial encounter Complete Blood Count Auto Diff Today Z00.00 - Encounter for general adult medical examination without abnormal findings TSH reflex Free T4 Today Z00.00 - Encounter for general adult medical examination without abnormal findings Referrals Ophthalmology Referral H00.19 - Chalazion unspecified eye, unspecified eyelid Neurology Referral R29.898 - Other symptoms and signs involving the musculoskeletal system Ear/Nose/Throat Referral R09.89 - Other specified symptoms and signs involving the circulatory and respiratory systems Medications: New 2 erythromycin 0.5 inches ophthalmic (eye) TID 7 days 3.5 grams 0RF nicotine (Nicoderm CQ) 1 patch transdermal DAILY 28 days 28 ea 2RF prednisone 4 tabs daily for 4 days, 3 tabs daily for 2 days, 2 tabs daily for 2 days, 1 tab daily for 2 days PO daily; 10 days 28 tabs 0RF Changed From albuterol sulfate 90 mcg/actuation (Ventolin HFA) 2 puffs inhalation Q4-6H PRN 8.5 grams 0RF shortness of breath or wheezing To albuterol sulfate 90 mcg/actuation (Ventolin HFA) 2 puffs inhalation Q4-6H 30 days PRN 8.5 grams 3RF shortness of breath or wheezing Coding Level of Care Code Est Pt Level 4 (44675) Diagnoses Depression with anxiety F41.8 Smoker F17.200 Asthma exacerbation J45.901 Chalazion H00.19 Throat tightness R09.89 Bruising T14.8XXA Difficulty sleeping G47.9 Weakness of right upper extremity R29.898 Additional Codes PAULA-7 Assessment Billing - PAULA-7 Assessment Tool: PAULA-7 Assessment 80693 ([id number])
[2022-12-01 09:41] VITALS: BP 118/66; PULSE 94; RESP 18; TEMP 37.1; O2SAT 99; BMI 27.8
== END 2022-12-01 11:11 | disposition home or self-care (01) ==
PROVIDERS: PCP Family Medicine; Visit Provider Family Medicine
DX: F41.8 Other specified anxiety disorders (principal); F17.210 Nicotine dependence, cigarettes, uncomplicated; J45.901 Unspecified asthma with (acute) exacerbation; H00.15 Chalazion left lower eyelid; R09.89 Other specified symptoms and signs involving the circulatory and respiratory systems; T14.8XXA Other injury of unspecified body region, initial encounter; G47.9 Sleep disorder, unspecified; R29.898 Other symptoms and signs involving the musculoskeletal system; H00.14 Chalazion left upper eyelid
CPT/HCPCS: 96127; 99214

== ENCOUNTER 2022-12-01 11:12 | Outpatient (REF) | payer OTHER, SELFPAY ==
[2022-12-01 14:06] LABS: MANUAL DIFF FLAG NO
[2022-12-01 14:11] LABS: Basophils Percent Auto 0.5 % (0-2); Eosinophils Absolute Auto 0.2 X10*3/uL (0.0-0.4); Eosinophils Percent Auto 3.1 % (0-4); Hematocrit 42.3 % (42.0-52.0); Hemoglobin 14.2 g/dl (14.0-18.0); Imm Gran Abs Auto 0.02 X10*3/uL (0.00-0.03); Imm Gran Pct Auto 0.3 % (0.0-0.4); Lymphocytes Absolute Auto 2.2 X10*3/uL (1.2-4.9); Lymphocytes Percent Auto 28.3 % (20-40); Mean Corpuscular HGB Conc 33.6 g/dl (31.0-36.0); Mean Corpuscular Hemoglobin 28.1 pg (27.0-33.0); Mean Corpuscular Volume 83.6 fL (80.0-98.0); Mean Platelet Volume 10.4 fL (9.4-12.4); Monocytes Absolute Auto 0.7 X10*3/uL (0.1-1.2); Monocytes Percent Auto 8.7 % (2-11); Neutrophils Absolute Auto 4.7 x10*3/uL (2.0-8.3); Neutrophils Percent Auto 59.1 % (45-73); Platelet Count 280 X10*3/uL (160-400); Red Blood Count 5.06 X10*6/uL (4.60-5.80); Red Cell Distribution Width 13.9 % (11.0-16.0); White Blood Count 7.9 X10*3/uL (4.8-10.8)
[2022-12-01 14:34] LABS: Alanine Aminotransferase 19 U/L (0-40); Albumin Level 4.6 g/dL (3.5-5.0); Alkaline Phosphatase 57 U/L (39-117); Anion Gap 10 (12-20); Aspartate Amino Transferase 18 U/L (5-37); Bilirubin Total 0.6 mg/dL (0.0-1.0); Blood Urea Nitrogen 11 mg/dL (9-16); Calcium 9.7 mg/dL (8.4-10.2); Carbon Dioxide 28 mmol/L (22-29); Chloride 105 mmol/L (96-108); Estimated Glomerular Filt Rate > 60; Glucose Random 98 mg/dL (60-115); Potassium 3.5 mmol/L (3.3-5.1); Sodium 139 mmol/L (135-145); Total Protein 7.5 g/dL (6.5-8.0)
[2022-12-01 14:43] LABS: Appearance Urine Clear; Color Urine Yellow; Glucose Urine UA Negative (Negative); Leukocyte Esterase Urine Negative (Negative); Nitrite Urine Negative (Negative); Urine Blood Negative (Negative); Urine Ketones Negative (Negative); Urine Protein Negative (Neg-Trace)
[2022-12-01 14:49] LABS: TSH reflex Free T4 2.23 uIU/mL (0.32-4.0)
[2022-12-01 15:48] LABS: Creatinine Urine 83.44 mg/dL; Microalbumin Urine < 5.0 mg/L
== END 2022-12-01 11:13 | disposition home or self-care (01) ==
LOC: HO.WFDLDS 11:12
PROVIDERS: Visit Provider Family Medicine
DX: Z00.00 Encounter for general adult medical examination without abnormal findings (principal); T14.8XXA Other injury of unspecified body region, initial encounter; I10 Essential (primary) hypertension; X58.XXXA Exposure to other specified factors, initial encounter; Y93.9 Activity, unspecified; Y92.9 Unspecified place or not applicable; Y99.9 Unspecified external cause status
CPT/HCPCS: 36415; 80053; 81003; 82043; 82570; 84443; 85025

== ENCOUNTER 2022-12-08 09:37 | Outpatient (AMB) | payer OTHER, SELFPAY ==
[2022-12-08 09:39] VITALS: BP 120/78; PULSE 104; O2SAT 99; BMI 28.5
--- NOTE | 2022-12-08 09:39 | MHC.PC.OV ---
Vital Signs 12/08/22 09:39 Height 5 ft 5.5 in Weight 174 lb 2 oz BMI 28.5 BP 120/78 Blood Pressure Location Lt brachial Position Sitting Pulse 104 H Pulse Source Pulse Oximeter Pulse Oximetry (%) 99 Oxygen Delivery Method Room Air Intake Visit Reasons: f/u labs and chronic conditions Intake Note: Patient is here to follow up on labs, and did not receive nicotine patches to quit smoking. Allergies ibuprofen [IBUPROFEN] Allergy (Intermediate, Verified 12/08/22 09:44) ABD PAIN AND REFLUX aspirin [ASA] Allergy (Verified 12/08/22 09:44) Swelling avocado Allergy (Verified 12/08/22 09:44) Swelling banana Allergy (Verified 12/08/22 09:44) Anaphylaxis gluten Allergy (Verified 12/08/22 09:44) Abdominal Pain house dust Allergy (Verified 12/08/22 09:44) Unknown lactose Allergy (Verified 12/08/22 09:44) Abdominal Pain seasonal Allergy (Unknown, Uncoded 12/08/22 09:44) unknown Tobacco use date assessed: 07/19/22 HPI f/u labs and chronic conditions HPI Details 22 y/o male presents to f/u labs and chronic conditions. He notes he tried Abilify x4 days and reports it had made him too tired. Labs were drawn 12/01/22. Reviewed labs with pt. [facility] Medical History (Updated 12/08/22 @ 10:09 by Chilango Ya) Acid reflux Anxiety Depression Asthma Epidermal inclusion cyst Constipation Surgical History Hx of colonoscopy H/O endoscopy Family History Mother Anxiety Depression Maternal Grandfather Substance abuse Maternal Grandmother Anxiety Depression Father Arthritis Social History Household Members: Family Housing: House Alcohol intake: current Alcohol intake frequency: holidays/special occasions only Alcohol type: hard liquor Patient Tobacco Use Status: Current everyday Tobacco user Tobacco use type: Cigarette Cigarettes Per Day: 5 e-Cigarette/Vaping Use: Currently Using Substance Use Type: Marijuana service: No Current occupational status: employed 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 Ricky Jennings, Laura Giron, Khoa Steiner and colleagues, with an educational claude from [employer]. Physical exam (Primary Care) Vital Signs: Last Vital Signs Pulse 104 H 12/08/22 09:39 BP 120/78 12/08/22 09:39 Pulse Ox 99 12/08/22 09:39 Oxygen Delivery Method Room Air 12/08/22 09:39 BMI result Body Mass Index 28.5 Tobacco/Smoking Status: Tobacco use Status Tobacco use date assessed 07/19/22 12/08/22 09:45 Patient Tobacco Use Status Current everyday Tobacco 12/08/22 09:45 Tobacco use type Cigarette 12/08/22 09:45 e-Cigarette/Vaping Use Currently Using 12/08/22 09:45 Thrive Assessment: Date of Thrive Assessment Date Thrive assessed 07/19/22 12/08/22 09:45 Assessment and Plan Assessment & Plan (1) Anxiety and depression: Code(s): F41.9 - Anxiety disorder, unspecified; F32.A - Depression, unspecified Plan: He will give Abilify another try as his main complaint was that it made him feel a little groggy. He has been taking it around midnight He will take this closer to 930 or 10 If he is still have difficulty or has other problems with that he can stop the medication. Also asked for medications specifically for anxiety and we discussed metoprolol. He can try low-dose metoprolol 1 or 2 times a day. Also discussed therapist but patient says that he has often not connected well with his therapist or connected well and then was not able to continue with that therapist due to issues such as insurance. Declining for now. I have asked him to think of creative ways he might be able to keep a therapist such as telemedicine. Also briefly discussed partial program but patient thinks that he would have difficulty attending due to work. Follow-up in 3 weeks (2) Smoker: Code(s): F17.200 - Nicotine dependence, unspecified, uncomplicated Plan: He did not receive nicotine patches though they were sent. I have resent them. (3) Chalazion: Code(s): H00.19 - Chalazion unspecified eye, unspecified eyelid Plan: Patient has not started the erythromycin yet but will do so today. He has been refer to ophthalmology. Orders: Orders Influenza [id number] Immunization Today Z23 - Encounter for immunization Medications: New flu vacc [id number] 6mos up(PF) 0.5 mL IM ONCE 0.5 mL 0RF Z23 - Encounter for immunization Refilled nicotine (Nicoderm CQ) 1 patch transdermal DAILY 28 days 28 ea 2RF Coding Level of Care Code Est Pt Level 4 (88555) Diagnoses Anxiety and depression F41.9; F32.A Smoker F17.200 Chalazion H00.19
--- NOTE | 2022-12-08 10:42 | MHC.PC.OV ---
Vital Signs 12/08/22 09:39 Height 5 ft 5.5 in Weight 174 lb 2 oz BMI 28.5 BP 120/78 Blood Pressure Location Lt brachial Position Sitting Pulse 104 H Pulse Source Pulse Oximeter Pulse Oximetry (%) 99 Oxygen Delivery Method Room Air Intake Visit Reasons: f/u labs and chronic conditions Allergies ibuprofen [IBUPROFEN] Allergy (Intermediate, Verified 12/08/22 09:44) ABD PAIN AND REFLUX aspirin [ASA] Allergy (Verified 12/08/22 09:44) Swelling avocado Allergy (Verified 12/08/22 09:44) Swelling banana Allergy (Verified 12/08/22 09:44) Anaphylaxis gluten Allergy (Verified 12/08/22 09:44) Abdominal Pain house dust Allergy (Verified 12/08/22 09:44) Unknown lactose Allergy (Verified 12/08/22 09:44) Abdominal Pain seasonal Allergy (Unknown, Uncoded 12/08/22 09:44) unknown Tobacco use date assessed: 07/19/22 [facility] Medical History (Updated 12/08/22 @ 10:09 by Chilango Ya) Acid reflux Anxiety Depression Asthma Epidermal inclusion cyst Constipation Surgical History Hx of colonoscopy H/O endoscopy Family History Mother Anxiety Depression Maternal Grandfather Substance abuse Maternal Grandmother Anxiety Depression Father Arthritis Social History Household Members: Family Housing: House Alcohol intake: current Alcohol intake frequency: holidays/special occasions only Alcohol type: hard liquor Patient Tobacco Use Status: Current everyday Tobacco user Tobacco use type: Cigarette Cigarettes Per Day: 5 e-Cigarette/Vaping Use: Currently Using Substance Use Type: Marijuana service: No Current occupational status: employed 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 Ricky Jennings, Laura Giron, Khoa Steiner and colleagues, with an educational claude from [email or web address]. Physical exam (Primary Care) Vital Signs: Last Vital Signs Pulse 104 H 12/08/22 09:39 BP 120/78 12/08/22 09:39 Pulse Ox 99 12/08/22 09:39 Oxygen Delivery Method Room Air 12/08/22 09:39 BMI result Body Mass Index 28.5 Tobacco/Smoking Status: Tobacco use Status Tobacco use date assessed 07/19/22 12/08/22 10:44 Patient Tobacco Use Status Current everyday Tobacco 12/08/22 10:44 Tobacco use type Cigarette 12/08/22 10:44 e-Cigarette/Vaping Use Currently Using 12/08/22 10:44 Thrive Assessment: Date of Thrive Assessment Date Thrive assessed 07/19/22 12/08/22 10:44 Assessment and Plan Assessment & Plan (1) Smoker: Code(s): F17.200 - Nicotine dependence, unspecified, uncomplicated (2) Chalazion: Code(s): H00.19 - Chalazion unspecified eye, unspecified eyelid (3) Depression: Code(s): F32.9 - Major depressive disorder, single episode, unspecified (4) Immunization counseling: Code(s): Z71.85 - Encounter for immunization safety counseling Orders: Orders Influenza [id number] Immunization Today Z23 - Encounter for immunization Medications: New flu vacc [id number] 6mos up(PF) 0.5 mL IM ONCE 0.5 mL 0RF Z23 - Encounter for immunization metoprolol succinate ER 12.5 mg (1/2 x 25 mg) PO BID 30 days 30 tabs 1RF Refilled nicotine (Nicoderm CQ) 1 patch transdermal DAILY 28 days 28 ea 2RF Coding Diagnoses Smoker F17.200 Chalazion H00.19 Depression F32.9 Immunization counseling Z71.85
== END 2022-12-08 10:17 | disposition home or self-care (01) ==
PROVIDERS: PCP Family Medicine; Visit Provider Family Medicine
DX: F41.9 Anxiety disorder, unspecified (principal); F32.A Depression, unspecified; F17.200 Nicotine dependence, unspecified, uncomplicated; H00.19 Chalazion unspecified eye, unspecified eyelid; Z23 Encounter for immunization
CPT/HCPCS: 90471; 90686; 99214

== ENCOUNTER 2022-12-29 09:33 | Outpatient (AMB) | payer OTHER, SELFPAY ==
[2022-12-29 09:54] VITALS: BP 118/64; PULSE 96; RESP 12; TEMP 36.3; O2SAT 98; BMI 28.7
--- NOTE | 2022-12-29 09:54 | MHC.PC.OV ---
Vital Signs 12/29/22 09:54 Height 5 ft 5.5 in Weight 175 lb 2 oz BMI 28.7 BP 118/64 Blood Pressure Location Lt brachial Position Sitting Respiration 12 Pulse 96 Pulse Source Pulse Oximeter Temp 97.3 F Temp Source Temporal Artery Scan Pulse Oximetry (%) 98 Oxygen Delivery Method Room Air Intake Visit Reasons: f/u depression Intake Note: Patient states that he was taking the medication given to him for the styes on his eyes and once the week worth of meds were done his eyes reverted back to how they looked. Patient states that he picked up meds a week late due to pharmacy. Clearance Diver Required: No Accompanied by: Self / Same As Patient Allergies ibuprofen [IBUPROFEN] Allergy (Intermediate, Verified 12/29/22 10:00) ABD PAIN AND REFLUX aspirin [ASA] Allergy (Verified 12/29/22 10:00) Swelling avocado Allergy (Verified 12/29/22 10:00) Swelling banana Allergy (Verified 12/29/22 10:00) Anaphylaxis gluten Allergy (Verified 12/29/22 10:00) Abdominal Pain house dust Allergy (Verified 12/29/22 10:00) Unknown lactose Allergy (Verified 12/29/22 10:00) Abdominal Pain seasonal Allergy (Unknown, Uncoded 12/08/22 09:44) unknown Tobacco use date assessed: 07/19/22 Dental Screening Dental Screen Date: 12/29/22 Did you have a dental visit in the last 12 months?: No Did you have a dental problem in the last 6 months where you did not have access to dental care?: No Was dental information given to patient?: Yes HPI f/u depression HPI Details 22 y/o male presents to f/u depression with anxiety. Pt stilll scores high for depression/anxiety. He is on Abilify 2mg. Also on metoprolol 12.5mg b.i.d. He notes chalazion has worsened a bit. Had made a referral to ophthalmology but pt states they have not contacted him yet. Pt reports he has been smoking a quarter pack per day. PFSH Medical History (Updated 12/08/22 @ 10:09 by Chilango Ya) Acid reflux Anxiety Depression Asthma Epidermal inclusion cyst Constipation Surgical History Hx of colonoscopy H/O endoscopy Family History Mother Anxiety Depression Maternal Grandfather Substance abuse Maternal Grandmother Anxiety Depression Father Arthritis Social History Household Members: Family Housing: House Alcohol intake: current Alcohol intake frequency: holidays/special occasions only Alcohol type: hard liquor Patient Tobacco Use Status: Current everyday Tobacco user Tobacco use type: Cigarette Cigarettes Per Day: 5 e-Cigarette/Vaping Use: Currently Using Substance Use Type: Marijuana service: No Current occupational status: employed 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 1. Little interest or pleasure in doing things: several days 2. Feeling down, depressed, or hopeless: several days 3. Trouble falling or staying asleep, or sleeping too much: nearly every day 4. Feeling tired or having little energy: nearly every day 5. Poor appetite or overeating: nearly every day 6. Feeling bad about yourself - or that you are a failure or have let yourself or your family down: nearly every day 7. Trouble concentrating on things, such as reading the newspaper or watching television: more than half the days 8. Moving or speaking so slowly that other people could have noticed. Or the opposite - being so fidgety or restless that you have been moving around a lot more than usual: not at all 9. Thoughts that you would be better off or of hurting yourself in some way: several days Total score: 17 Depression Screening Interpretation: Positive Depression Screening Done: Yes 37904 - PHQ-9 Billing: Yes Source: Developed by Drs. Ricky Jennings, Laura Giron, Khoa Steiner and colleagues, with an educational claude from [employer]. Thrive Questionnaire Date Thrive assessed: 07/19/22 PAULA-7 AMB Questionnaire PAULA-7 Date PAULA - 7 assessed: 07/19/22 Feeling nervous, anxious, or on edge: 3 = Nearly every day Not being able to stop or control worryin = Nearly every day Worrying too much about different things: 3 = Nearly every day Trouble relaxin = Nearly every day Being so restless that it is hard to sit still: 1 = Several days Becoming easily annoyed or irritable: 2 = More than half the days Feeling afraid as if something awful might happen: 3 = Nearly every day Total PAULA-7 score (0-4 normal; 5-9 mild; 10-14 moderate; 15-21 severe): 18 Source: Developed by Drs. Ricky Jennings, Laura Giron, Khoa Steiner and colleagues, with an educational claude from [employer]. PAULA-7 Assessment Billing PAULA-7 Assessment Tool: PAULA-7 Assessment 85793 Review of Systems Const Denies chills, Denies fatigue, Denies fever(s), Denies headache(s) and Denies weakness ENT Denies dizziness and Denies headache(s) Card Denies dyspnea Resp Denies cough, Denies dyspnea, Denies wheezing and Denies other (shortness of breath) Musc Denies numbness and Denies tingling Neuro Denies dizziness, Denies headache(s), Denies numbness, Denies tingling and Denies weakness Psych Reports anxiety and Reports depression Endo Denies fatigue Aller/Immun Denies wheezing Physical exam (Primary Care) Vital Signs: Last Vital Signs Temp 97.3 F 12/29/22 09:54 Pulse 96 12/29/22 09:54 Resp 12 12/29/22 09:54 BP 118/64 12/29/22 09:54 Pulse Ox 98 12/29/22 09:54 Oxygen Delivery Method Room Air 12/29/22 09:54 BMI result Body Mass Index 28.7 Tobacco/Smoking Status: Tobacco use Status Tobacco use date assessed 07/19/22 12/29/22 10:05 Patient Tobacco Use Status Current everyday Tobacco 12/29/22 10:05 Tobacco use type Cigarette 12/29/22 10:05 e-Cigarette/Vaping Use Currently Using 12/29/22 10:05 PHQ-9: PHQ-9 Score PHQ-9: Total score 17 12/29/22 10:05 Depression Screening Interpretation: Positive Thrive Assessment: Date of Thrive Assessment Date Thrive assessed 07/19/22 12/29/22 10:05 Const General: well developed; No acute distress Nutritional Appearance: well nourished Orientation/consciousness: patient oriented x3 HENMT Head: Yes normocephalic and Yes atraumatic Eyes General: appearance normal, both eyes and all related structures Pupils: Equal, round and reactive pupils present EOM: EOMs intact bilaterally Resp Effort & Inspection: normal respiratory effort Neuro General: patient oriented x3 and gait normal Cranial nerves: Yes Equal, round and reactive pupils present Psych Affect: normal affect Assessment and Plan Assessment & Plan (1) Depression with anxiety: Code(s): F41.8 - Other specified anxiety disorders Plan: Ongoing?depression?and?anxiety.??No?SI. He?can?try?decreasing?Abilify?at?night?to?help?with?anxiety?and?sleep Will?try?venlafaxine.??Risks/benefits?discussed?with?patient Continue?metoprolol?for?anxiety?during?the?day Advised?considering?a?therapist?by?telemedicine?or?online,?again though?he?does?not?think?he?can?fit?this?in?his?schedule. (2) Chalazion: Code(s): H00.19 - Chalazion unspecified eye, unspecified eyelid Plan: Refilled?erythromycin?ointment Patient?would?like?a?referral?to?Ophthalmology?in?[place]?or?[place] Sent?new?refer (3) Smoker: Code(s): F17.200 - Nicotine dependence, unspecified, uncomplicated Plan: Advised?smoking?cessation. Venlafaxine?has?some?properties?which?may?help?with?this?as?he?is?only?smoking?about?4-5?cigarettes?per?day?and?this?is?more?likely?an?issue?of?decreasing?his?habit?than?breaking?an?addiction?at?this?point. Advised?him?to?look?for?other?healthier?habits?which?give?him?the?same?benefits?he?feels?from?smoking. (4) Weakness of right upper extremity: Code(s): R29.898 - Other symptoms and signs involving the musculoskeletal system Plan Patient?says?he?has?not?gotten?a?phone?call?from?Neurology?yet. Gave?him?neurology?phone?number Follow-up?with?Neurology Orders: Referrals Ophthalmology Referral H00.19 - Chalazion unspecified eye, unspecified eyelid Medications: New venlafaxine 75 mg PO BID 30 days 60 tabs 1RF Changed From aripiprazole (Abilify) 2 mg PO BEDTIME 30 days 30 tabs 1RF To aripiprazole (Abilify) 1 mg (1/2 x 2 mg) PO BEDTIME 30 days 15 tabs 1RF Refilled erythromycin 0.5 inches ophthalmic (eye) TID 3.5 grams 2RF 7 days Discontinued nicotine (Nicoderm CQ) Discontinued Reason: Doctor's Order 1 patch transdermal DAILY 28 days 28 ea 2RF Coding Level of Care Code Est Pt Level 4 (93472) Diagnoses Depression with anxiety F41.8 Chalazion H00.19 Smoker F17.200 Weakness of right upper extremity R29.898 Additional Codes PAULA-7 Assessment Billing - PAULA-7 Assessment Tool: PAULA-7 Assessment 10235 ([id number])
== END 2022-12-29 11:22 | disposition home or self-care (01) ==
PROVIDERS: PCP Family Medicine; Visit Provider Family Medicine
DX: F41.8 Other specified anxiety disorders (principal); H00.19 Chalazion unspecified eye, unspecified eyelid; F17.210 Nicotine dependence, cigarettes, uncomplicated; R29.898 Other symptoms and signs involving the musculoskeletal system
CPT/HCPCS: 99214

== ENCOUNTER 2023-01-25 13:18 | Emergency (ER) | payer OTHER, SELFPAY ==
--- NOTE | ~2023-01-25 | XR_ITS ---
EXAMINATION: XR HAND, LEFT CLINICAL INFORMATION: Thumb pain, injury COMPARISON: None available. TECHNIQUE: PA, lateral, and oblique views of the left hand. FINDINGS: First digit: No evidence of acute fracture or dislocation. There is a rounded ossicle present at the first MCP joint. Mild soft tissue swelling present. No abnormal soft tissue calcification. Remainder the bones, joint spaces and soft tissues appear unremarkable. XR/XR hand LT min 3V IMPRESSION: No radiographic evidence of acute fracture or dislocation of the thumb.
[2023-01-25 13:34] VITALS: BP 107/80; PULSE 85; RESP 18; TEMP 36.8; O2SAT 97; BMI 30.2
--- NOTE | 2023-01-25 13:36 | ED.GENADULT ---
HPI - General Adult General Chief complaint: Extremity Injury, Upper Stated complaint: L thumb fx Time Seen by Provider: 01/25/23 15:48 Source: patient Mode of arrival: ambulatory Limitations: no limitations History of Present Illness HPI narrative: Patient is a 22 year old assigned male at with no reported medical history presenting to the emergency department today with left thumb. Patient states that 2 weeks ago he was jumping off of a stage when his left thumb bent back and made a popping noise. Patient denies any head strike, loss of consciousness, dizziness, lightheadedness, abdominal pain, nausea, vomiting, fever, chills, blurry vision, double vision, loss of vision, chest pain, difficulty breathing, shortness of breath, back pain, night sweats, pain with urination, increased urinary frequency, increased urinary urgency, blood in his urine or stool, syncope or a near syncopal episode, bowel incontinence, bladder incontinence, bowel retention, bladder retention, or any other complaints at this time. Onset (ago): week(s) (2) Location: left and upper extremity (thumb) Radiation: non-radiation Severity: mild Severity scale (1-10): 3 Quality: aching and dull Pain Consistency: constant Relieving factors: none Exacerbating factors: none Associated symptoms: denies other symptoms Treatments prior to arrival: splint Related Data Home Medications Medication Instructions Recorded Confirmed loratadine 10 mg tablet 1 tab PO DAILY 10/28/21 10/18/22 budesonide-formoterol HFA 160 2 puff inhalation BID 01/14/22 10/18/22 mcg-4.5 mcg/actuation aerosol inhaler (Symbicort) sennosides 8.6 mg tablet (Senna 17.2 mg PO BEDTIME 07/19/22 10/18/22 Laxative) triamcinolone acetonide 0.1 % topical 07/19/22 10/18/22 topical ointment Previous Rx's Medication Instructions Recorded albuterol sulfate 90 mcg/actuation 2 puff inhalation Q4-6H PRN 12/01/22 aerosol inhaler (Ventolin HFA) shortness of breath or wheezing 30 days #8.5 grams metoprolol succinate 25 mg 12.5 mg (1/2 x 25 mg) PO BID 30 12/08/22 tablet,extended release 24 hr days #30 tabs aripiprazole 2 mg tablet (Abilify) 1 mg (1/2 x 2 mg) PO BEDTIME 30 12/29/22 days #15 tabs erythromycin 5 mg/gram (0.5 %) eye 0.5 inch ophthalmic (eye) TID 7 12/29/22 ointment days #3.5 grams venlafaxine 75 mg tablet 75 mg PO BID 30 days #60 tabs 12/29/22 Allergies Allergy/AdvReac Type Severity Reaction Status Date / Time ibuprofen [IBUPROFEN] Allergy Intermediate ABD PAIN Verified 01/25/23 13:37 AND REFLUX aspirin [ASA] Allergy Swelling Verified 01/25/23 13:37 avocado Allergy Swelling Verified 01/25/23 13:37 banana Allergy Anaphylaxis Verified 01/25/23 13:37 gluten Allergy Abdominal Verified 01/25/23 13:37 Pain house dust Allergy Unknown Verified 01/25/23 13:37 lactose Allergy Abdominal Verified 01/25/23 13:37 Pain seasonal Allergy Unknown unknown Uncoded 12/08/22 09:44 Review of Systems Constitutional: Constitutional: Reports no additional constitutional complaints, Denies chills, Denies fever(s) and Denies night sweats Eyes: Eyes: Reports no additional eye complaints, Denies blurry vision, Denies change in vision, Denies diplopia, Denies eye discharge, Denies loss of vision and Denies eye pain ENT: Denies dizziness Cardiovascular: Cardiovascular: Reports no additional cardiovascular complaints, Denies chest pain, Denies lightheadedness, Denies Loss of Consciousness and Denies dyspnea Respiratory: Respiratory: Reports no additional respiratory complaints and Denies dyspnea Gastrointestinal: Gastrointestinal: Reports no additional gastrointestinal complaints, Denies abdominal pain, Denies melena, Denies hematochezia, Denies change in bowel habits and Denies change in stool character Genitourinary: Genitourinary: Reports no additional male genitourinary complaints, Denies hematuria, Denies oliguria, Denies difficulty urinating, Denies dysuria, Denies urinary frequency, Denies urinary hesitancy, Denies urinary incontinence and Denies urinary urgency Musculoskeletal: Musculoskeletal: Reports no additional musculoskeletal complaints, Denies numbness and Denies tingling Comments: left thumb pain Neurologic: Denies dizziness, Denies loss of vision, Denies numbness and Denies tingling Psychiatric: Psychiatric: Reports no additional psychiatric complaints Endocrine: Endocrine: Reports no additional endocrine complaints Hematologic/Lymphatic: Hematologic/Lymphatic: Reports no additional hematologic/lymphatic complaints Allergic/Immunologic: Allergic/Immunologic: Reports no additional allergic/immunologic complaints PMFSH Past Medical History Attestation statement: The following information was validated with the patient. Source: old records reviewed and nursing notes reviewed Medical History Acid reflux Anxiety Depression Asthma Epidermal inclusion cyst Constipation Surgical History Hx of colonoscopy H/O endoscopy Family History Family History Mother Anxiety Depression Maternal Grandfather Substance abuse Maternal Grandmother Anxiety Depression Father Arthritis Social History Social History Household Members: Family Housing: House Alcohol intake: never Patient Tobacco Use Status: Current everyday Tobacco user Tobacco use type: Cigarette Cigarettes Per Day: 5 Smoked in Last 30 Days: No e-Cigarette/Vaping Use: Currently Using Use of substances other than those prescribed or required for medical reasons: No Substance Use Type: Marijuana Advance Directives: No Advance Directives Information Provided: No service: No Current occupational status: employed 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 Sexual orientation: Did not discuss Cognitive needs: No Hearing needs: No Vision needs: No Physical Exam ED Vital Signs: Vital Signs - 24 hr 01/25/23 13:34 Temperature 98.2 F Pulse Rate 85 Respiratory Rate 18 Blood Pressure 107/80 Pulse Oximetry 97 Oxygen Delivery Method Room Air BMI result Body Mass Index 30.2 Const General: cooperative, no acute distress, alert and awake Nutritional Appearance: well nourished Orientation/consciousness: patient oriented x3 Limitations: no limitations HENMT Head: Yes normal to inspection and Yes atraumatic Ears: hearing grossly normal bilaterally and external ears normal General nose exam: Normal external nose present, no nasal discharge noted and no epistaxis Face and sinus: Yes normal facial exam, No abrasion and No laceration Mouth: Normal oral and palatal mucosa present, no drooling and no muffled voice Eyes General: appearance normal, both eyes and all related structures Periorbital: periorbital findings normal Eyelids: Yes eyelids normal Conjunctivae: conjunctivae normal Pupils: Equal, round and reactive pupils present EOM: EOMs intact bilaterally Neck Neck: Yes normal visual inspection, Yes full ROM and Yes no lymphadenopathy Chest Chest palpation & inspection: normal inspection of the chest Resp Effort & Inspection: normal respiratory effort and able to speak in complete sentences GI Inspection: Yes normal to inspection Neuro General: patient oriented x3 and moves all extremities Cranial nerves: Yes Equal, round and reactive pupils present Cognition (Neuro): normal cognition Motor exam (neuro): 5/5 motor strength present throughout Sensory Exam: Normal double simultaneous stimulation for sensation Coordination: [id number] test normal Extrem Other: patient unable to touch left thumb to left pinky finger tip General: Yes normal to inspection and Yes capillary refill normal Psych Appearance: grossly normal Mental Status: mental status grossly normal Affect: normal affect Attitude: cooperative Thought process: Normal thought process present Thought content: Normal thought content present Insight: Good insight present (Psych) Course Course Course Narrative: RME performed by Belkis Fuentes PA-C. Patient is a 22 year old assigned male at presenting to the emergency department with left thumb pain. Imaging ordered. Patient placed back in the waiting room pending room availability and results. Medical Decision Making Medical Decision Making MDM Narrative: Patient is a 22 year old assigned male at with no reported medical history presenting to the emergency department today with left thumb pain. Patient's physical exam was as noted in the physical exam portion of this note. Patient's left hand x-ray showed no acute process. Patient's clinical presentation is most consistent with a left RCL or UCL injury of the thumb. Patient was already in a thumb spica splint from home, encouraged patient to remain in that splint. I explained my physical exam findings as well as all test results to the patient. I answered all questions asked by the patient.I stressed the importance of the patient taking his medication as prescribed. I stressed the importance of the patient following up with his primary care provider and an orthopedic provider. I stressed the importance of the patient returning to the emergency department immediately if his symptoms were to worsen or if he were to develop any dizziness, shortness of breath, difficulty breathing, chest pain, blurry vision, loss of vision, nausea, vomiting, abdominal pain, fever, chills, back pain, or any other complaints. Patient verbalized agreement and understanding with this treatment plan and discharge. Differential Diagnosis Differential Diagnoses: The differential diagnosis associated with the presentation includes Left thumb RCL / UCL injury Left thumb sprain Left thumb injury Independent Interpretation I performed an independent interpretation of an: Plain X-Ray Interpretation: My interpretation is in agreement with the radiologist's impression of this imaging study. EXAMINATION: XR HAND, LEFT CLINICAL INFORMATION: Thumb pain, injury COMPARISON: None available. TECHNIQUE: PA, lateral, and oblique views of the left hand. FINDINGS: First digit: No evidence of acute fracture or dislocation. There is a rounded ossicle present at the first MCP joint. Mild soft tissue swelling present. No abnormal soft tissue calcification. Remainder the bones, joint spaces and soft tissues appear unremarkable. XR/XR hand LT min 3V IMPRESSION: No radiographic evidence of acute fracture or dislocation of the thumb. Dictated By: Brad Sal MD Signed By: Electronically signed by Brad Sal MD 01/25/23 1538 Radiology Impression Discussion of test interpretation with radiology: I have reviewed the radiologist's reading. Discharge Plan Discharge Clinical Impression: Left thumb sprain Patient Disposition: Home, Self-Care Instructions: Sprain (ED) Additional Instructions: Follow up with your primary care provider and an orthopedic provider. Return to the emergency department immediately if your symptoms worsen or if you develop any dizziness, shortness of breath, difficulty breathing, chest pain, blurry vision, loss of vision, nausea, vomiting, abdominal pain, fever, chills, back pain, or any other complaints. Prescriptions: No Action loratadine 10 mg tablet 1 tab PO DAILY triamcinolone acetonide 0.1 % ointment topical sennosides [Senna Laxative] 8.6 mg tablet 17.2 mg PO BEDTIME albuterol sulfate [Ventolin HFA] 90 mcg/actuation HFA aerosol inhaler 2 puff inhalation Q4-6H PRN (Reason: shortness of breath or wheezing) 30 Days Qty: 8.5 3RF metoprolol succinate 25 mg tablet extended release 24 hr 12.5 mg PO BID 30 Days Qty: 30 1RF aripiprazole [Abilify] 2 mg tablet 1 mg PO BEDTIME 30 Days Qty: 15 1RF venlafaxine 75 mg tablet 75 mg PO BID 30 Days Qty: 60 1RF erythromycin 5 mg/gram (0.5 %) ointment 0.5 inch ophthalmic (eye) TID 7 Days Qty: 3.5 2RF budesonide-formoterol [Symbicort] 160-4.5 mcg/actuation HFA aerosol inhaler 2 puff inhalation BID Referrals: [facility] [place] [facility] [Provider Group] (Call to establish and follow up with an orthopedic provider. ) Eduardo Marquez MD [Primary Care Provider] - Interventions: ED Discharge Assessment Last Done: 01/25/23 16:19 Discharge Date/Time: 01/25/23 16:20 Print Language: Mauritian
--- NOTE | 2023-01-25 15:45 | PC.NURSE ---
Patient states that he hurt his thumb 2 weeks ago and has been using a brace that he picked up from [facility]. Patient states that since using the brace the pain has been getting worse instead of better so he wanted to be evaluated.
[2023-01-25 16:16] VITALS: BP 129/70; PULSE 75; RESP 18; O2SAT 100
== END 2023-01-25 16:20 | disposition home or self-care (01) ==
PROVIDERS: Emergency Provider Student in an Organized Health Care Education/Training Program; PCP Family Medicine
DX: S63.602A Unspecified sprain of left thumb, initial encounter (principal); X50.1XXA Overexertion from prolonged static or awkward postures, initial encounter; Y93.39 Activity, other involving climbing, rappelling and jumping off; Y92.9 Unspecified place or not applicable; Y99.9 Unspecified external cause status
CPT/HCPCS: 73130; 99283; 99284

== ENCOUNTER 2023-03-06 17:38 | Emergency (ER) | payer OTHER, SELFPAY ==
--- NOTE | 2023-03-06 | ECG_ITS ---
Test Reason : chest pain Blood Pressure : / mmHG Vent. Rate : 083 BPM Atrial Rate : 083 BPM P-R Int : 130 ms QRS Dur : 084 ms QT Int : 314 ms P-R-T Axes : 057 056 047 degrees QTc Int : 368 ms Normal sinus rhythm with sinus arrhythmia Early repolarization Normal ECG When compared with ECG of 27-NOV-2021 13:09, Nonspecific T wave abnormality now evident in Inferior leads Referred By: Generic ED Physician Electronically Signed By:Ventura Gilliam
--- NOTE | ~2023-03-06 | XR_ITS ---
EXAMINATION: XR CHEST CLINICAL INFORMATION: Pain when breathing in or out. COMPARISON: Chest done on 11/27/2021. TECHNIQUE: 2 views of the chest were obtained. FINDINGS: No significant abnormality is noted involving the heart, lungs, mediastinum, bony thorax or soft tissues. XR/XR chest 2V IMPRESSION: Unremarkable examination. No significant change since 11/27/2021.
[2023-03-06 17:52] VITALS: BP 138/72; PULSE 85; RESP 18; TEMP 36.4; O2SAT 95; BMI 30.2
[2023-03-06 18:03] LABS: MANUAL DIFF FLAG NO
[2023-03-06 18:04] LABS: Basophils Absolute Auto 0.1 X10*3/uL (0.0-0.2); Basophils Percent Auto 0.4 % (0-2); Eosinophils Absolute Auto 0.2 X10*3/uL (0.0-0.4); Eosinophils Percent Auto 1.3 % (0-4); Hemoglobin 15.3 g/dl (14.0-18.0); Imm Gran Abs Auto 0.04 X10*3/uL (0.00-0.03); Imm Gran Pct Auto 0.4 % (0.0-0.4); Lymphocytes Absolute Auto 1.4 X10*3/uL (1.2-4.9); Lymphocytes Percent Auto 12.5 % (20-40); Mean Corpuscular HGB Conc 32.6 g/dl (31.0-36.0); Mean Corpuscular Hemoglobin 27.6 pg (27.0-33.0); Mean Corpuscular Volume 84.7 fL (80.0-98.0); Mean Platelet Volume 9.1 fL (9.4-12.4); Monocytes Absolute Auto 0.6 X10*3/uL (0.1-1.2); Monocytes Percent Auto 5.6 % (2-11); Neutrophils Absolute Auto 8.9 x10*3/uL (2.0-8.3); Neutrophils Percent Auto 79.8 % (45-73); Platelet Count 292 X10*3/uL (160-400); Red Blood Count 5.55 X10*6/uL (4.60-5.80); Red Cell Distribution Width 13.2 % (11.0-16.0); White Blood Count 11.2 X10*3/uL (4.8-10.8)
[2023-03-06 18:19] LABS: Anion Gap 13 (12-20); Blood Urea Nitrogen 13 mg/dL (9-16); Carbon Dioxide 28 mmol/L (22-29); Chloride 104 mmol/L (96-108); Creatinine Clr Calc Pharmacy 111.8; Estimated Glomerular Filt Rate > 60; Glucose Random 95 mg/dL (60-115); Potassium 4.4 mmol/L (3.3-5.1); Sodium 141 mmol/L (135-145)
[2023-03-06 18:30] LABS: Troponin-I High Sensitivity < 2.7 ng/L (<3.5-35.0)
[2023-03-06 19:42] VITALS: BP 122/63; PULSE 80; RESP 20; TEMP 36.1; O2SAT 97
[2023-03-06 20:41] VITALS: BP 125/77; PULSE 71; RESP 16; TEMP 36.6; O2SAT 97
[2023-03-06 20:58] VITALS: PULSE 71
--- NOTE | 2023-03-06 21:05 | ED.CHESTPAIN ---
HPI - Chest Pain General Chief Complaint: Chest Pain Stated Complaint: chest palp/heart palp/collapased yesterday Time Seen by Provider: 03/06/23 21:04 History of Present Illness HPI narrative: 22-year-old male with history of GERD, anxiety, depression, asthma , eczema, irritable bowel syndrome who presents emergency department for evaluation of palpitations, chest pain and wants syncopal episode. The patient states that yesterday he was having a tightness in his chest which she describes as the valves a my heart were constricting . The tightness started at around 16:00 hours. He had associated shortness of breath tingling this in his finger tips, his face felt numb. He states that 20 minutes later his legs became very weak as if there was no blood flow in his legs. He states that he then collapsed to the sidewalk. Patient describes these symptoms as palpitations he states he has been having similar symptoms since March of 2023. He states that he has had several ER visits with similar presentations but they have not been able found any cause for his symptoms. Patient states he does have a history of depression anxiety was not taking medications this time. He states he was taking medication prescribed by his PCP but he has not been able to get a refill this prescription since this summer. 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 Related Data Home Medications Medication Instructions Recorded Confirmed loratadine 10 mg tablet 1 tab PO DAILY 10/28/21 10/18/22 budesonide-formoterol HFA 160 2 puff inhalation BID 01/14/22 10/18/22 mcg-4.5 mcg/actuation aerosol inhaler (Symbicort) sennosides 8.6 mg tablet (Senna 17.2 mg PO BEDTIME 07/19/22 10/18/22 Laxative) triamcinolone acetonide 0.1 % topical 07/19/22 10/18/22 topical ointment Previous Rx's Medication Instructions Recorded albuterol sulfate 90 mcg/actuation 2 puff inhalation Q4-6H PRN 12/01/22 aerosol inhaler (Ventolin HFA) shortness of breath or wheezing 30 days #8.5 grams erythromycin 5 mg/gram (0.5 %) eye 0.5 inch ophthalmic (eye) TID 7 12/29/22 ointment days #3.5 grams venlafaxine 75 mg tablet 75 mg PO BID 30 days #60 tabs 12/29/22 aripiprazole 2 mg tablet (Abilify) 1 mg (1/2 x 2 mg) PO BEDTIME 30 02/03/23 days #15 tabs metoprolol succinate 25 mg 12.5 mg (1/2 x 25 mg) PO BID 30 02/09/23 tablet,extended release 24 hr days #30 tabs Allergies Allergy/AdvReac Type Severity Reaction Status Date / Time ibuprofen [IBUPROFEN] Allergy Intermediate ABD PAIN Verified 03/06/23 17:52 AND REFLUX aspirin [ASA] Allergy Swelling Verified 03/06/23 17:52 avocado Allergy Swelling Verified 03/06/23 17:52 banana Allergy Anaphylaxis Verified 03/06/23 17:52 gluten Allergy Abdominal Unverified 03/06/23 17:52 Pain house dust Allergy Unknown Verified 03/06/23 17:52 lactose Allergy Abdominal Verified 03/06/23 17:52 Pain seasonal Allergy Unknown unknown Uncoded 12/08/22 09:44 Review of Systems Review of Systems: Yes all other systems are reviewed and are negative [facility] Past Medical History [facility] Narrative: Social history: Patient denies tobacco, alcohol and drug use. Medical History Acid reflux Anxiety Depression Asthma Epidermal inclusion cyst Constipation Surgical History Hx of colonoscopy H/O endoscopy Family History Family History Mother Anxiety Depression Maternal Grandfather Substance abuse Maternal Grandmother Anxiety Depression Father Arthritis Social History Social History Household Members: Family Housing: House Alcohol intake: current Alcohol intake frequency: holidays/special occasions only Alcohol type: hard liquor Patient Tobacco Use Status: Current everyday Tobacco user Tobacco use type: Cigarette Cigarettes Per Day: 5 Smoked in Last 30 Days: Yes e-Cigarette/Vaping Use: Currently Using Use of substances other than those prescribed or required for medical reasons: No Substance Use Type: Marijuana Advance Directives: No Advance Directives Information Provided: No service: No Current occupational status: employed 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 Sexual orientation: Did not discuss Cognitive needs: No Hearing needs: No Vision needs: No Physical Exam Vital Signs: Vital Signs: Last Vital Signs Temp 98 F 03/06/23 20:41 Pulse 71 03/06/23 20:41 Resp 16 03/06/23 20:41 BP 125/77 03/06/23 20:41 Pulse Ox 97 03/06/23 20:41 O2 Del Method Room Air 03/06/23 20:41 BMI result Body Mass Index 30.2 Vital signs were normal Exam General: Awake, alert in no distress Head: Normocephalic, atraumatic EENT: PERRL, Lids normal, sclera normal, conjunctiva normal, nose normal , ears normal, throat without erythema or exudates Neck: Supple, no adenopathy, no trachea midline or C-spine tenderness Lung: breath sounds symmetric, no wheezing, rales or rhonchi Chest: symmetric movement, mild sternal and anterior chest wall tenderness Heart: regular rate and rhythm, normal S1, S2 no murmurs or rubs Abdomen: soft, non-tender, nondistended, normal bowel sounds Back: no vertebral tenderness, no CVAT Extremities: no deformities, moves all extremities symmetrically Neuro: Awake, alert, oriented, normal speech, cranial nerves intact, moves all extremities symmetrically Psych: Pleasant, cooperative Medical Decision Making Medical Decision Making MDM Narrative: 22-year-old male with history of GERD, anxiety, depression, asthma , eczema, irritable bowel syndrome who presents emergency department for evaluation of palpitations, chest pain and wants syncopal episode, shortness of breath, near syncope. Patient states he has been having palpitations which she describes as chest tightness since March 2022. He had an episode yesterday at 16:00 hours which was associated with shortness of breath, tingling this in his fingers, decreased sensation is face, weakness in his legs which then caused him to collapse on the sidewalk. Patient does have history of anxiety and depression but is not taking any medications at this time. He also has been under increased stress secondary to his work situation. Vital signs were normal. Physical examination was unremarkable. Following evaluation was ordered: CBC, BMP, troponin, EKG, chest x-ray 21:36 My interpretation patient's laboratory evaluation is as follows: CBC was normal. BMP was normal. High sensitive troponin I was below detectable limits. Patient's 12 EKG revealed no significant abnormalities. Patient had normal QTC interval. Chest x-ray was unremarkable. At this time I believe the patient's palpitations and chest pain may be anxiety or stress related. Patient states that he does not believe that this is the cause was symptoms and would like to see a humidifier maintenance worker therefore I will refer her to our humidifier maintenance worker on-call to see if they can further evaluate the patient's symptoms. Patient was advised to contact his PCP your back on his antidepression medications. I will also for the patient to [facility] for therapy and possible prescribing provider. Patient was given printed and verbal instructions and discharged home Differential Diagnosis Differential Diagnoses: The differential diagnosis associated with the presentation includes Differential diagnosis includes was not limited to myocardial infarction, myocardial ischemia, palpitations, arrhythmias, stress, anxiety, hyperventilation syndrome Admission/Observation Consideration of admission/observation: Escalation of care including admission/observation considered Lab Data MDM Lab Attestation statement: I reviewed the patient's lab results. See MDM above 03/06/23 17:59 03/06/23 17:59 Labs: Lab Results 03/06/23 Range/Units 17:59 WBC 11.2 H (4.8-10.8) X10*3/uL RBC 5.55 (4.60-5.80) X10*6/uL Hgb 15.3 (14.0-18.0) g/dl Hct 47.0 (42.0-52.0) % MCV 84.7 (80.0-98.0) fL MCH 27.6 (27.0-33.0) pg MCHC 32.6 (31.0-36.0) g/dl RDW 13.2 (11.0-16.0) % Plt Count 292 (160-400) X10*3/uL MPV 9.1 L (9.4-12.4) fL Immature Gran % (Auto) 0.4 (0.0-0.4) % Neut % (Auto) 79.8 H (45-73) % Lymph % (Auto) 12.5 L (20-40) % [place] % (Auto) 5.6 (2-11) % Eos % (Auto) 1.3 (0-4) % Baso % (Auto) 0.4 (0-2) % Lymph # (Auto) 1.4 (1.2-4.9) X10*3/uL [place] # (Auto) 0.6 (0.1-1.2) X10*3/uL Eos # (Auto) 0.2 (0.0-0.4) X10*3/uL Baso # (Auto) 0.1 (0.0-0.2) X10*3/uL Abs Immat Gran (auto) 0.04 H (0.00-0.03) X10*3/uL Absolute Neuts (auto) 8.9 H (2.0-8.3) x10*3/uL Absolute Nucleated RBC 0.000 (0.0-0.012) X10*3/uL Nucleated RBC % (auto) 0.0 (0.0-0.2) /100WBC Sodium 141 (135-145) mmol/L Potassium 4.4 D (3.3-5.1) mmol/L Chloride 104 (96-108) mmol/L Carbon Dioxide 28 (22-29) mmol/L Anion Gap 13 (12-20) BUN 13 (9-16) mg/dL Creatinine 1.04 (0.5-1.4) mg/dL Estim Creat Clear Calc 111.8 Estimated GFR > 60 Random Glucose 95 (60-115) mg/dL Calcium 10.0 (8.4-10.2) mg/dL Troponin I High Sens < 2.7 (<3.5-35.0) ng/L Independent Interpretation I performed an independent interpretation of an: Plain X-Ray Interpretation: My interpretation patient's two view chest x-ray is as follows: No acute disease My independent interpretation patient's 12 EKG done at 17:48 hours is as follows: Normal sinus rhythm with a rate of 83, normal [place] interval, QRS duration QTC interval, no ST segment elevation, no ST segment depression, no T-wave abnormalities, no PACs, no PVCs-this is a normal EKG Radiology Impression Discussion of test interpretation with radiology: I have reviewed the radiologist's reading. Radiologist Impression: XR chest 2V IMPRESSION: Unremarkable examination. No significant change since 11/27/2021. Dictated By: Pipe Kulkarni MD Chronic Conditions Patient?s care impacted by: Other (Asthma) Discharge Plan Discharge Clinical Impression: Chest pain, Near syncope, Acute hyperventilation syndrome Patient Disposition: Home, Self-Care Instructions: Hyperventilation (ED), Heart Palpitations (ED) Additional Instructions: Your blood work was normal. Your troponin (marker of heart damage) was below detectable limits which is reassuring suggesting that your symptoms are not caused by heart attack. Your chest x-ray was normal. Your EKG was normal. Your symptoms are consistent with hyperventilation syndrome is your body's reaction to stress. You should contact her PCP to get your antidepressant medication refilled. Please call N or [facility] . These are [facility] health services that can get you a therapist and also sometimes get you a prescribing provider to give you the medicines that you may need help with stress, anxiety and depression Please contact our humidifier maintenance worker on-call to see if they can further evaluate your symptoms of chest pain and palpitations. Follow-up with your doctor in 2 days. Please return to the emergency department if your symptoms get worse or if you develop any symptoms that are concerning to you. Prescriptions: No Action aripiprazole [Abilify] 2 mg tablet 1 mg PO BEDTIME 30 Days Qty: 15 1RF metoprolol succinate 25 mg tablet extended release 24 hr 12.5 mg PO BID 30 Days Qty: 30 1RF loratadine 10 mg tablet 1 tab PO DAILY triamcinolone acetonide 0.1 % ointment topical sennosides [Senna Laxative] 8.6 mg tablet 17.2 mg PO BEDTIME albuterol sulfate [Ventolin HFA] 90 mcg/actuation HFA aerosol inhaler 2 puff inhalation Q4-6H PRN (Reason: shortness of breath or wheezing) 30 Days Qty: 8.5 3RF venlafaxine 75 mg tablet 75 mg PO BID 30 Days Qty: 60 1RF erythromycin 5 mg/gram (0.5 %) ointment 0.5 inch ophthalmic (eye) TID 7 Days Qty: 3.5 2RF budesonide-formoterol [Symbicort] 160-4.5 mcg/actuation HFA aerosol inhaler 2 puff inhalation BID Referrals: Ventura Gilliam MD [Physician] - 2 weeks (Palpitations, chest pain, near syncope)
== END 2023-03-06 21:57 | disposition home or self-care (01) ==
PROVIDERS: Emergency Provider Emergency Medicine Emergency Medical Services; PCP Family Medicine
DX: R07.9 Chest pain, unspecified (principal); R55 Syncope and collapse; R06.02 Shortness of breath; R07.1 Chest pain on breathing; R00.2 Palpitations; L30.9 Dermatitis, unspecified; J45.909 Unspecified asthma, uncomplicated; Z79.899 Other long term (current) drug therapy
CPT/HCPCS: 36415; 71046; 80048; 84484; 85025; 93005; 99284; 99285

== ENCOUNTER → 2023-03-06 17:48 | Outpatient (BNV) | payer OTHER, SELFPAY | PROVIDERS: PCP Family Medicine; Visit Provider Internal Medicine Cardiovascular Disease | DX: R07.9 Chest pain, unspecified (principal) | CPT/HCPCS: 93010 ==

== ENCOUNTER 2023-04-11 10:29 | Outpatient (AMB) | payer OTHER, SELFPAY ==
--- NOTE | 2023-04-11 10:41 | MHC.PC.OV ---
Vital Signs 04/11/23 10:42 Height 5 ft 5 in Weight 179 lb BMI 29.8 BP 128/74 Blood Pressure Location Lt brachial Position Sitting Pulse 105 H Pulse Source Pulse Oximeter Pulse Oximetry (%) 96 Oxygen Delivery Method Room Air Intake Visit Reasons: f/u depression Intake Note: Patient is here to follow up on depression today. Patient would like to talk about stronger Nicotine patches. Allergies ibuprofen [IBUPROFEN] Allergy (Intermediate, Verified 04/11/23 11:00) ABD PAIN AND REFLUX aspirin [ASA] Allergy (Verified 04/11/23 11:00) Swelling avocado Allergy (Verified 04/11/23 11:00) Swelling banana Allergy (Verified 04/11/23 11:00) Anaphylaxis gluten Allergy (Unverified 04/11/23 11:00) Abdominal Pain house dust Allergy (Verified 04/11/23 11:00) Unknown lactose Allergy (Verified 04/11/23 11:00) Abdominal Pain seasonal Allergy (Unknown, Uncoded 04/11/23 11:00) unknown Tobacco use date assessed: 04/11/23 HPI f/u depression HPI Details 22 y/o male presents to f/u depression and anxiety. Trialing decreasing Abilify at night to help with anxiety and sleep. Trialing venlafaxine. Pt reports ongoing fatigue and difficulty sleeping. He notes stressors such as health concerns with his cat. He denies SI/HI today. PHQ-9 18, PAULA-7 15 today - practically unchanged since last office visit. PFSH Medical History Acid reflux Anxiety Depression Asthma Epidermal inclusion cyst Constipation Surgical History Hx of colonoscopy H/O endoscopy Family History Mother Anxiety Depression Maternal Grandfather Substance abuse Maternal Grandmother Anxiety Depression Father Arthritis Social History Household Members: Family Housing: House Alcohol intake: current Alcohol intake frequency: holidays/special occasions only Alcohol type: hard liquor Patient Tobacco Use Status: Current everyday Tobacco user Tobacco use type: Cigarette Cigarettes Per Day: 5 e-Cigarette/Vaping Use: Currently Using Substance Use Type: Marijuana service: No Current occupational status: employed 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 1. Little interest or pleasure in doing things: several days 2. Feeling down, depressed, or hopeless: several days 3. Trouble falling or staying asleep, or sleeping too much: nearly every day 4. Feeling tired or having little energy: nearly every day 5. Poor appetite or overeating: nearly every day 6. Feeling bad about yourself - or that you are a failure or have let yourself or your family down: nearly every day 7. Trouble concentrating on things, such as reading the newspaper or watching television: nearly every day 8. Moving or speaking so slowly that other people could have noticed. Or the opposite - being so fidgety or restless that you have been moving around a lot more than usual: not at all 9. Thoughts that you would be better off or of hurting yourself in some way: several days Total score: 18 Depression Screening Interpretation: Positive Depression Screening Done: Yes 03103 - PHQ-9 Billing: Yes Source: Developed by Drs. Ricky Jennings, Laura Giron, Khoa Steiner and colleagues, with an educational claude from [employer]. Thrive Questionnaire Date Thrive assessed: 07/19/22 PAULA-7 AMB Questionnaire PAULA-7 Date PAULA - 7 assessed: 04/11/23 Feeling nervous, anxious, or on edge: 3 = Nearly every day Not being able to stop or control worryin = Nearly every day Worrying too much about different things: 3 = Nearly every day Trouble relaxin = More than half the days Being so restless that it is hard to sit still: 0 = Not at all Becoming easily annoyed or irritable: 2 = More than half the days Feeling afraid as if something awful might happen: 2 = More than half the days Total PAULA-7 score (0-4 normal; 5-9 mild; 10-14 moderate; 15-21 severe): 15 Source: Developed by Drs. Ricky Jennings, Laura Giron, Khoa Steiner and colleagues, with an educational claude from [employer]. PAULA-7 Assessment Billing PAULA-7 Assessment Tool: PAULA-7 Assessment 24102 Review of Systems Const Denies chills, Reports difficulty sleeping, Reports fatigue, Denies fever(s), Denies headache(s) and Denies weakness ENT Denies dizziness and Denies headache(s) Card Denies dyspnea Resp Denies cough, Denies dyspnea, Denies wheezing and Denies other (shortness of breath) Musc Denies numbness and Denies tingling Neuro Denies dizziness, Denies headache(s), Denies numbness, Denies tingling and Denies weakness Psych Reports anxiety and Reports depression Endo Reports fatigue Aller/Immun Denies wheezing Physical exam (Primary Care) BMI result Body Mass Index 29.8 Tobacco/Smoking Status: Tobacco use Status Tobacco use date assessed 07/19/22 03/23/23 12:20 Patient Tobacco Use Status Current everyday Tobacco 03/23/23 12:20 Tobacco use type Cigarette 03/23/23 12:20 e-Cigarette/Vaping Use Currently Using 03/23/23 12:20 Depression Screening Interpretation: Positive Thrive Assessment: Date of Thrive Assessment Date Thrive assessed 07/19/22 03/23/23 12:20 Const General: well developed; No acute distress Nutritional Appearance: well nourished Orientation/consciousness: patient oriented x3 [facility] Head: Yes normocephalic and Yes atraumatic Eyes General: appearance normal, both eyes and all related structures Pupils: Equal, round and reactive pupils present EOM: EOMs intact bilaterally Resp Effort & Inspection: normal respiratory effort Neuro General: patient oriented x3 and gait normal Cranial nerves: Yes Equal, round and reactive pupils present Psych Affect: normal affect Assessment and Plan Assessment & Plan (1) Depression with anxiety: Code(s): F41.8 - Other specified anxiety disorders Plan: Ongoing?anxiety?and?depression?which?are?not?significantly?improved. He?says?he?has?had?a?therapist?but?has?not?connected?well?with?them.??He?would?like?a?referral?to?another?therapist?so?I?will?ask?the?nurse?navigator?to?help?connect?him. Continue?Abilify?and?metoprolol Has?not?tried?venlafaxine?so?he?can?try?this Denies?SI/HI Follow-up?in?1?month (2) Fatigue: Code(s): R53.83 - Other fatigue Plan: Significant?daytime?sleepiness?and?fatigue. Referred?to?Sleep?Medicine (3) Smoker: Code(s): F17.200 - Nicotine dependence, unspecified, uncomplicated Plan: Will?send?nicotine?patch?as?per?patient?request Orders: Referrals Nurse Navigator Referral F41.8 - Other specified anxiety disorders Sleep Medicine Referral G47.19 - Other hypersomnia, G47.9 - Sleep disorder, unspecified Medications: New nicotine (Nicoderm CQ) 1 patch transdermal DAILY 28 ea 3RF 28 days Refilled venlafaxine 75 mg PO BID 30 days 60 tabs 1RF aripiprazole (Abilify) 1 mg (1/2 x 2 mg) PO BEDTIME 30 days 15 tabs 1RF Coding Level of Care Code Est Pt Level 4 (09538) Diagnoses Depression with anxiety F41.8 Fatigue R53.83 Smoker F17.200 Additional Codes PAULA-7 Assessment Billing - PAULA-7 Assessment Tool: PAULA-7 Assessment 13053 ([id number])
[2023-04-11 10:42] VITALS: BP 128/74; PULSE 105; O2SAT 96; BMI 29.8
== END 2023-04-11 11:43 | disposition home or self-care (01) ==
PROVIDERS: PCP Family Medicine; Visit Provider Family Medicine
DX: F41.8 Other specified anxiety disorders (principal); R53.83 Other fatigue; F17.200 Nicotine dependence, unspecified, uncomplicated
CPT/HCPCS: 96127; 99214

== ENCOUNTER 2023-04-22 12:23 | Emergency (ER) | payer OTHER, SELFPAY ==
--- NOTE | ~2023-04-22 | XR_ITS ---
EXAMINATION: XR CHEST CLINICAL INFORMATION: Cough COMPARISON: 03/06/2023 TECHNIQUE: 2 views of the chest were obtained. FINDINGS: No significant abnormality is noted involving the heart, lungs, mediastinum, bony thorax or soft tissues. XR/XR chest 2V IMPRESSION: No acute cardiopulmonary disease or interval change. Annual 1 albuterol complete 10/10/2019
[2023-04-22 12:42] VITALS: BP 160/85; PULSE 81; RESP 18; TEMP 36.5; O2SAT 100; BMI 29.1
--- NOTE | 2023-04-22 12:43 | ED.GENADULT ---
HPI - General Adult General Chief complaint: Upper Respiratory Symptoms Stated complaint: throat pain Time Seen by Provider: 04/22/23 13:24 Source: patient Mode of arrival: ambulatory Limitations: no limitations History of Present Illness HPI narrative: 22-year-old male presents to ED for sore throat, headache, loss of voice, coughing with white phlegm and 1 episode of tinge of blood. Patient denies any chest pain, shortness of breath, recent long travel, recent surgery, chest pain inspiration, leg swelling, calf pain, history of blood clots,or any recent trauma. Related Data Home Medications Medication Instructions Recorded Confirmed loratadine 10 mg tablet 1 tab PO DAILY 10/28/21 10/18/22 budesonide-formoterol HFA 160 2 puff inhalation BID 01/14/22 10/18/22 mcg-4.5 mcg/actuation aerosol inhaler (Symbicort) sennosides 8.6 mg tablet (Senna 17.2 mg PO BEDTIME 07/19/22 10/18/22 Laxative) triamcinolone acetonide 0.1 % topical 07/19/22 10/18/22 topical ointment Previous Rx's Medication Instructions Recorded albuterol sulfate 90 mcg/actuation 2 puff inhalation Q4-6H PRN 12/01/22 aerosol inhaler (Ventolin HFA) shortness of breath or wheezing 30 days #8.5 grams erythromycin 5 mg/gram (0.5 %) eye 0.5 inch ophthalmic (eye) TID 7 12/29/22 ointment days #3.5 grams metoprolol succinate 25 mg 12.5 mg (1/2 x 25 mg) PO BID 90 03/10/23 tablet,extended release 24 hr days #90 tabs aripiprazole 2 mg tablet (Abilify) 1 mg (1/2 x 2 mg) PO BEDTIME 30 04/11/23 days #15 tabs nicotine 21 mg/24 hr daily 1 patch transdermal DAILY 28 days 04/11/23 transdermal patch (Nicoderm CQ) #28 ea venlafaxine 75 mg tablet 75 mg PO BID 30 days #60 tabs 04/11/23 azithromycin 250 mg tablet See Rx Instructions PO .COMPLEX #6 04/22/23 tabs prednisone 20 mg tablet 40 mg (2 x 20 mg) PO DAILY 5 days 04/22/23 #10 tabs Allergies Allergy/AdvReac Type Severity Reaction Status Date / Time ibuprofen [IBUPROFEN] Allergy Intermediate ABD PAIN Verified 04/22/23 12:46 AND REFLUX aspirin [ASA] Allergy Swelling Verified 04/22/23 12:46 avocado Allergy Swelling Verified 04/22/23 12:46 banana Allergy Anaphylaxis Verified 04/22/23 12:46 gluten Allergy Abdominal Verified 04/22/23 12:46 Pain house dust Allergy Unknown Verified 04/22/23 12:46 lactose Allergy Abdominal Verified 04/22/23 12:46 Pain seasonal Allergy Unknown unknown Uncoded 04/11/23 11:00 Review of Systems Review of Systems: Coughing, sore throat, headache, white phlegm and coughing, lost voice Yes all other systems are reviewed and are negative [facility] Past Medical History Medical History Acid reflux Anxiety Depression Asthma Epidermal inclusion cyst Constipation Surgical History Hx of colonoscopy H/O endoscopy Family History Family History Mother Anxiety Depression Maternal Grandfather Substance abuse Maternal Grandmother Anxiety Depression Father Arthritis Social History Social History Household Members: Family Housing: House Alcohol intake: current Alcohol intake frequency: holidays/special occasions only Alcohol type: hard liquor Patient Tobacco Use Status: Current everyday Tobacco user Tobacco use type: Cigarette Cigarettes Per Day: 5 e-Cigarette/Vaping Use: Currently Using Substance Use Type: Marijuana Advance Directives: No Advance Directives Information Provided: Yes service: No Current occupational status: employed 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 Sexual orientation: Did not discuss Cognitive needs: No Hearing needs: No Vision needs: No Physical Exam ED Vital Signs: Vital Signs - 24 hr 04/22/23 12:42 Temperature 97.7 F Pulse Rate 81 Respiratory Rate 18 Blood Pressure 160/85 H Pulse Oximetry 100 Oxygen Delivery Method Room Air BMI result Body Mass Index 29.1 Const General: cooperative, healthy appearing, comfortable, no acute distress, well developed, alert, awake and Physically active Orientation/consciousness: oriented to person, oriented to place, oriented to time and patient oriented x3 HENMT Other: negative for signs of Peritonsillar abscess, drooling, or epiglottitis. Negative for trismus Head: Yes normal to inspection, Yes No palpable skull fracture present, Yes normocephalic, Yes atraumatic and No abrasion Ears: hearing grossly normal bilaterally, external ears normal, TM's normal bilaterally, TM normal on the right, TM normal on the left, EAC's normal, mastoids normal and no periauricular adenopathy Throat: Yes posterior oropharynx normal, Yes tonsils normal and Yes uvula midline Eyes General: appearance normal, both eyes and all related structures Neck Neck: Yes normal visual inspection, Yes full ROM, Yes no lymphadenopathy, Yes no meningeal signs, Yes trachea midline, Yes supple, No anterior neck swelling and No tender Chest Chest palpation & inspection: normal inspection of the chest and normal palpation of entire chest wall Resp Effort & Inspection: normal respiratory effort and able to speak in complete sentences Auscultation: clear to auscultation bilaterally Cardio Jugular venous distension: no JVD Heart sounds: S1 normal heart sound present and S2 normal heart sound present GI Inspection: Yes normal to inspection Palpation (GI): Soft to palpation, not firm, nontender, no guarding and not rigid General: No CVA tenderness and Yes no CVA tenderness Back/Spine/Pelvis Back: no CVA tenderness, No CVA tenderness and No back tenderness Skin General skin exam: no rashes or lesions noted, elasticity normal and turgor normal Neuro General: oriented to person, oriented to place, oriented to time, patient oriented x3, gait normal, tone normal, moves all extremities, Normal light touch and pain sensation, no meningeal signs, no focal motor deficits, CN's II-XI intact bilaterally and normal sensation to monofilament Extrem Other: bilateral lower extremity negative for swelling, pitting edema, or calf tenderness. General: Yes normal to inspection, Yes full ROM and Yes capillary refill normal Psych Appearance: grossly normal, well kempt and not disheveled Course Course Course Narrative: RME performed by Belkis Fuentes PA-C. Patient is a 22 year old assigned male at presenting to the emergency department with a sore throat and cough. Detailed physical exam and review of systems are deferred to the primary school teacher librarian. Imaging and swabs ordered. Patient placed back in the waiting room pending room availability and results. Medications Administered Discontinued Medications Generic Name Dose Route Start Last Admin Trade Name Ricky PRN Reason Stop Dose Admin Acetaminophen 650 mg 04/22/23 12:51 04/22/23 12:56 Acetaminophen 325 Mg Tablet PO 04/22/23 12:52 650 mg ONCE ONE Administration Medical Decision Making Medical Decision Making MDM Narrative: 22-year-old male history of asthma presents to the ED for coughing, sore throat, headache, white phlegm with 1 episode of streaks of blood. Patient denies any pleurisy, leg swelling, calf pain, chest pain, shortness of breath, recent long travel, recent surgery, history of blood clots, or any Estrogen hormonal use. COVID strep influenza swab negative. Chest x-ray pendimg 12:49pm: chest x-ray normal. patient voiced return. Patient is speaking in full voice. No respiratory distress. Differential Diagnosis Differential Diagnoses: The differential diagnosis associated with the presentation includes ( Laryngitis, tonsillitis, bronchitis, pneumonia) Admission/Observation Consideration of admission/observation: Escalation of care including admission/observation considered Lab Data Labs: Lab Results 04/22/23 Range/Units 12:49 COVID-19 (TARUN) Negative (Negative) COVID-19 Clin Com See Note Influenza Type A (KAREN) Negative (Negative) Influenza Type B (KAREN) Negative (Negative) Influenza A & B Note See Note S. pyogenes GrpA KAREN Negative (Negative) Independent Interpretation I performed an independent interpretation of an: Plain X-Ray Radiology Impression Discussion of test interpretation with radiology: I have reviewed the radiologist's reading. External Record Review External record reviewed: Other ( prior visits) Prescription Management I considered prescription management with: Antibiotic Discharge Plan Discharge Clinical Impression: Laryngitis, Bronchitis Patient Disposition: Home, Self-Care Instructions: Laryngitis (ED), Acute Bronchitis (ED) Additional Instructions: recommend follow-up with primary care provider, x-ray negative for pneumonia. You will be treated as laryngitis / bronchitis. Recommend continued albuterol pump as needed. He will be discharged with azithromycin and steroids. Return to the ED for chest pain, shortness of breath, drooling, inability tolerate solid food / liquid, chest pain, shortness of breath, sensation of throat closing, foul odor breath, coughing up blood clots, fever, chills, rash, or any other concerning symptoms. Prescriptions: New azithromycin 250 mg tablet See Rx Instructions .ROUTE .COMPLEX Qty: 6 0RF Rx Instructions: For 250 mg dose pack: take 500 mg today (day 1), then 250 mg for 4 days (days 2-5) prednisone 20 mg tablet 40 mg PO DAILY 5 Days Qty: 10 0RF No Action metoprolol succinate 25 mg tablet extended release 24 hr 12.5 mg PO BID 90 Days Qty: 90 0RF loratadine 10 mg tablet 1 tab PO DAILY venlafaxine 75 mg tablet 75 mg PO BID 30 Days Qty: 60 1RF aripiprazole [Abilify] 2 mg tablet 1 mg PO BEDTIME 30 Days Qty: 15 1RF nicotine [Nicoderm CQ] 21 mg/24 hr patch 24 hour 1 patch transdermal DAILY 28 Days Qty: 28 3RF triamcinolone acetonide 0.1 % ointment topical sennosides [Senna Laxative] 8.6 mg tablet 17.2 mg PO BEDTIME albuterol sulfate [Ventolin HFA] 90 mcg/actuation HFA aerosol inhaler 2 puff inhalation Q4-6H PRN (Reason: shortness of breath or wheezing) 30 Days Qty: 8.5 3RF erythromycin 5 mg/gram (0.5 %) ointment 0.5 inch ophthalmic (eye) TID 7 Days Qty: 3.5 2RF budesonide-formoterol [Symbicort] 160-4.5 mcg/actuation HFA aerosol inhaler 2 puff inhalation BID Stand Alone Forms: Work/School Release Interventions: ED Discharge Assessment Last Done: 04/22/23 16:24 Discharge Date/Time: 04/22/23 16:25 Print Language: Vietnamese
[2023-04-22] MEDS: Acetaminophen 325 MG TABLET 650 MG PO (12:56)
[2023-04-22 13:05] LABS: IDNOW Serial# 08D9AD1C; Strep A Nucleic Acid Negative (Negative)
[2023-04-22 13:13] LABS: IDNOW Serial# 9DB6401D; Influenza A Negative (Negative); Influenza B2 Negative (Negative)
[2023-04-22 13:14] LABS: IDNOW Serial# 58CA691E
[2023-04-22 13:15] LABS: COVID-19 Test Negative (Negative)
== END 2023-04-22 16:25 | disposition home or self-care (01) ==
PROVIDERS: Physician Assistant Medical; Emergency Provider Emergency Medicine Emergency Medical Services; PCP Family Medicine
DX: J38.5 Laryngeal spasm (principal); J40 Bronchitis, not specified as acute or chronic; R07.0 Pain in throat; R05.9 Cough, unspecified; Z11.52 Encounter for screening for COVID-19
CPT/HCPCS: 71046; 87502; 87635; 87651; 99283

== ENCOUNTER 2023-04-28 15:56 | Outpatient (REF) | payer OTHER, SELFPAY ==
--- NOTE | ~2023-04-28 | MR_ITS ---
EXAMINATION: MR BRAIN WITHOUT CONTRAST CLINICAL INFORMATION: Demyelinating disease COMPARISON: None TECHNIQUE: Multiplanar multisequence MR imaging of the brain was obtained without intravenous contrast. FINDINGS: There is no acute infarct on diffusion-weighted imaging. There is no intracranial hemorrhage on iron-sensitive imaging. No extra-axial collection or mass effect/herniation. Normal parenchymal signal characteristics. No hydrocephalus. The ventricles are normal in morphology and size. The major flow voids at the skull base are preserved. The midline structures are normal. The cerebellar tonsils are normally positioned. The craniocervical junction is normal. Marrow signal is within normal limits. The visualized soft tissues are without significant abnormality. No signal abnormality within the paranasal sinuses or within the mastoid air cells. MR/MR head/brain wo con IMPRESSION: Unremarkable noncontrast MRI of the brain. No evidence of demyelinating disease as queried.
== END 2023-04-28 15:57 | disposition home or self-care (01) ==
LOC: HO.MRI 15:56
PROVIDERS: PCP Family Medicine; Visit Provider Psychiatry & Neurology Neurology
DX: G37.9 Demyelinating disease of central nervous system, unspecified (principal)
CPT/HCPCS: 70551

== ENCOUNTER 2023-05-09 10:26 | Outpatient (AMB) | payer OTHER, SELFPAY ==
--- NOTE | 2023-05-09 10:28 | A.OFFPC_ITS ---
Vital Signs 05/09/23 10:30 Height 5 ft 5 in Weight 178 lb BMI 29.6 BP 118/62 Blood Pressure Location Rt brachial Position Sitting Pulse 68 Pulse Source Pulse Oximeter Pulse Oximetry (%) 98 Oxygen Delivery Method Room Air Intake Visit Reasons: f/u depression/anxiety Intake Note: Patient is following up on depression and anxiety today and MRI on brain. Allergies ibuprofen [IBUPROFEN] Allergy (Intermediate, Verified 05/09/23 10:32) ABD PAIN AND REFLUX aspirin [ASA] Allergy (Verified 05/09/23 10:32) Swelling avocado Allergy (Verified 05/09/23 10:32) Swelling banana Allergy (Verified 05/09/23 10:32) Anaphylaxis gluten Allergy (Verified 05/09/23 10:32) Abdominal Pain house dust Allergy (Verified 05/09/23 10:32) Unknown lactose Allergy (Verified 05/09/23 10:32) Abdominal Pain venlafaxine Adverse Reaction (Mild, Verified 05/09/23 10:35) vomiting, disorintation seasonal Allergy (Unknown, Uncoded 05/09/23 10:32) unknown Tobacco use date assessed: 04/11/23 Dental Screening Dental Screen Date: 05/09/23 Did you have a dental visit in the last 12 months?: No Did you have a dental problem in the last 6 months where you did not have access to dental care?: No Was dental information given to patient?: Yes HPI f/u depression/anxiety HPI Details 22 y/o male presents to f/u depression/a nxiety. Continued his abilify and metoprolol. Trialing venlafaxine. Had made a referral to [facility]. He notes they had called him and is still waiting for a call back from them. Questionnaire today: PHQ-9 15. PAULA-7 13. He reports he trialed venlafaxine but was not able to tolerate this. [facility] Medical History Acid reflux Anxiety Depression Asthma Epidermal inclusion cyst Constipation Surgical History Hx of colonoscopy H/O endoscopy Family History Mother Anxiety Depression Maternal Grandfather Substance abuse Maternal Grandmother Anxiety Depression Father Arthritis Social History Household Members: Family Housing: House Alcohol intake: current Alcohol intake frequency: holidays/special occasions only Alcohol type: hard liquor Patient Tobacco Use Status: Current everyday Tobacco user Tobacco use type: Cigarette Cigarettes Per Day: 5 e-Cigarette/Vaping Use: Currently Using Substance Use Type: Marijuana service: No Current occupational status: employed 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 1. Little interest or pleasure in doing things: several days 2. Feeling down, depressed, or hopeless: several days 3. Trouble falling or staying asleep, or sleeping too much: nearly every day 4. Feeling tired or having little energy: nearly every day 5. Poor appetite or overeating: nearly every day 6. Feeling bad about yourself - or that you are a failure or have let yourself or your family down: nearly every day 7. Trouble concentrating on things, such as reading the newspaper or watching television: several days 8. Moving or speaking so slowly that other people could have noticed. Or the opposite - being so fidgety or restless that you have been moving around a lot more than usual: not at all 9. Thoughts that you would be better off or of hurting yourself in some way: not at all Total score: 15 Depression Screening Interpretation: Positive Depression Screening Done: Yes 74132 - PHQ-9 Billing: Yes Source: Developed by Drs. Ricky Jennings, Laura Giron, Khoa Steiner and colleagues, with an educational claude from [employer]. Thrive Questionnaire Date Thrive assessed: 07/19/22 PAULA-7 AMB Questionnaire PAULA-7 Date PAULA - 7 assessed: 05/09/23 Feeling nervous, anxious, or on edge: 2 = More than half the days Not being able to stop or control worryin = Nearly every day Worrying too much about different things: 3 = Nearly every day Trouble relaxin = More than half the days Being so restless that it is hard to sit still: 0 = Not at all Becoming easily annoyed or irritable: 1 = Several days Feeling afraid as if something awful might happen: 2 = More than half the days Total PAULA-7 score (0-4 normal; 5-9 mild; 10-14 moderate; 15-21 severe): 13 Source: Developed by Drs. Ricky Jennings, Laura Giron, Khoa Steiner and colleagues, with an educational claude from [employer]. PAULA-7 Assessment Billing PAULA-7 Assessment Tool: PAULA-7 Assessment 37551 Review of Systems Const Denies chills, Denies fatigue, Denies fever(s), Denies headache(s) and Denies weakness ENT Denies dizziness and Denies headache(s) Card Denies chest pain, Denies lightheadedness, Denies dyspnea and Denies other (Palpitations) Resp Denies cough, Denies dyspnea, Denies wheezing and Denies other ( shortness of breath) Musc Denies numbness and Denies tingling Neuro Denies dizziness, Denies headache(s), Denies numbness, Denies tingling, Denies paresthesias and Denies weakness Psych Reports anxiety and Reports depression Endo Denies fatigue Aller/Immun Denies wheezing Physical exam (Primary Care) Vital Signs: Last Vital Signs Pulse 68 05/09/23 10:30 BP 118/62 05/09/23 10:30 Pulse Ox 98 05/09/23 10:30 Oxygen Delivery Method Room Air 05/09/23 10:30 BMI result Body Mass Index 29.6 Tobacco/Smoking Status: Tobacco use Status Tobacco use date assessed 04/11/23 05/09/23 10:31 Patient Tobacco Use Status Current everyday Tobacco 05/09/23 10:31 Tobacco use type Cigarette 05/09/23 10:31 e-Cigarette/Vaping Use Currently Using 05/09/23 10:31 Depression Screening Interpretation: Positive Thrive Assessment: Date of Thrive Assessment Date Thrive assessed 07/19/22 05/09/23 10:31 Const General: no acute distress and well developed Nutritional Appearance: well nourished Orientation/consciousness: patient oriented x3 HENMT Head: Yes normocephalic and Yes atraumatic Eyes General: appearance normal, both eyes and all related structures Pupils: Equal, round and reactive pupils present EOM: EOMs intact bilaterally Resp Effort & Inspection: normal respiratory effort Auscultation: clear to auscultation bilaterally Cardio Rate: regular rate Rhythm: regular rhythm Heart sounds: S1 normal heart sound present, S2 normal heart sound present, no gallops, no murmurs and no rubs Neuro General: patient oriented x3 and gait normal Cranial nerves: Yes Equal, round and reactive pupils present Psych Affect: Anxious affect present Assessment and Plan Assessment & Plan (1) Depression with anxiety: Code(s): F41.8 - Other specified anxiety disorders Plan: Ongoing?depression?and?anxiety. He?is?tolerating?Abilify?and?metoprolol.??Will?bring?Abilify?up?from?1?mg?daily? to?2?mg?daily Did?not?tolerate?venlafaxine.??Will?try?mirtazapine Has?not?been?put?in?touch?with?a?therapist?yet.??I?have?asked?the?nurse?navigato r?to?contact?him?in?try?to?help?facilitate?this. Discussed?with?patient?that?ultimately?he?will?need?a?psychiatr ist?and?so?should?let?his?therapist?no?he?has?a?goal?of?being?referred?to?Psychi atry?soon?as?possible. (2) Sleep apnea: Code(s): G47.30 - Sleep apnea, unspecified Plan: Patient?has?an?appointment?for?evaluation Encouraged?him?to?attend?this. Plan Patient?also?had?complaints?of?weakness No?evidence?of?weakness?today. He?is?seen?by?Neurology.??I?have?not?gotten?the?visit?report.??Will?request?this MRI?negative?for?any?demyelinating?disorder Medications: New mirtazapine 7.5 mg PO DAILY 30 days 30 tabs 0RF Coding Level of Care Code Est Pt Level 3 (59042) Diagnoses Depression with anxiety F41.8 Sleep apnea G47.30 Additional Codes PAULA-7 Assessment Billing - PAULA-7 Assessment Tool: PAULA-7 Assessment 19073 ([id number])
[2023-05-09 10:30] VITALS: BP 118/62; PULSE 68; O2SAT 98; BMI 29.6
== END 2023-05-09 11:17 | disposition home or self-care (01) ==
PROVIDERS: PCP Family Medicine; Visit Provider Family Medicine
DX: F41.8 Other specified anxiety disorders (principal); G47.30 Sleep apnea, unspecified
CPT/HCPCS: 96127; 99213

== ENCOUNTER 2023-06-07 12:37 | Emergency (ER) | payer OTHER, SELFPAY ==
[2023-06-07 13:30] VITALS: BP 129/69; PULSE 69; RESP 16; TEMP 37.3; O2SAT 95; BMI 30.8
--- NOTE | 2023-06-07 14:05 | ED_ITS ---
HPI - General Adult General Chief complaint: Upper Respiratory Symptoms Stated complaint: Vomiting Trouble Breathing Etc Time Seen by Provider: 06/07/23 14:42 Source: patient Mode of arrival: ambulatory Limitations: no limitations History of Present Illness HPI narrative: Patient is a 23-year-old male presenting to the emergency department with complaint of sore throat, painful swallowing, hoarse voice, shortness of breath, headaches, fatigue, nausea/vomiting and chills since Tuesday. Denies chest pain or abdominal pain. Denies diarrhea. MD complaint: sore throat, fatigue Onset (ago): day(s) Severity: severe Quality: burning Pain Consistency: constant Relieving factors: none Associated symptoms: cough, fever/chills, headaches, loss of appetite, nausea/vomiting and shortness of breath Treatments prior to arrival: none Related Data Home Medications Medication Instructions Recorded Confirmed loratadine 10 mg tablet 1 tab PO DAILY 10/28/21 10/18/22 budesonide-formoterol HFA 160 2 puff inhalation BID 01/14/22 10/18/22 mcg-4.5 mcg/actuation aerosol inhaler (Symbicort) sennosides 8.6 mg tablet (Senna 17.2 mg PO BEDTIME 07/19/22 10/18/22 Laxative) triamcinolone acetonide 0.1 % topical 07/19/22 10/18/22 topical ointment Previous Rx's Medication Instructions Recorded albuterol sulfate 90 mcg/actuation 2 puff inhalation Q4-6H PRN 12/01/22 aerosol inhaler (Ventolin HFA) shortness of breath or wheezing 30 days #8.5 grams erythromycin 5 mg/gram (0.5 %) eye 0.5 inch ophthalmic (eye) TID 7 12/29/22 ointment days #3.5 grams aripiprazole 2 mg tablet (Abilify) 1 mg (1/2 x 2 mg) PO BEDTIME 30 04/11/23 days #15 tabs nicotine 21 mg/24 hr daily 1 patch transdermal DAILY 28 days 04/11/23 transdermal patch (Nicoderm CQ) #28 ea mirtazapine 7.5 mg tablet 7.5 mg PO DAILY 30 days #30 tabs 05/09/23 metoprolol succinate 25 mg 12.5 mg (1/2 x 25 mg) PO BID 90 06/07/23 tablet,extended release 24 hr days #90 tabs Allergies Allergy/AdvReac Type Severity Reaction Status Date / Time ibuprofen [IBUPROFEN] Allergy Intermediate ABD PAIN Verified 05/09/23 10:32 AND REFLUX aspirin [ASA] Allergy Swelling Verified 05/09/23 10:32 avocado Allergy Swelling Verified 05/09/23 10:32 banana Allergy Anaphylaxis Verified 05/09/23 10:32 gluten Allergy Abdominal Verified 05/09/23 10:32 Pain house dust Allergy Unknown Verified 05/09/23 10:32 lactose Allergy Abdominal Verified 05/09/23 10:32 Pain venlafaxine AdvReac Mild vomiting, Verified 05/09/23 10:35 disorintation seasonal Allergy Unknown unknown Uncoded 05/09/23 10:32 Review of Systems Review of Systems: As per HPI. Yes all other systems are reviewed and are negative Constitutional: Constitutional: Reports as per HPI PMFSH Past Medical History Medical History Acid reflux Anxiety Depression Asthma Epidermal inclusion cyst Constipation Surgical History Hx of colonoscopy H/O endoscopy Family History Family History Mother Anxiety Depression Maternal Grandfather Substance abuse Maternal Grandmother Anxiety Depression Father Arthritis Social History Social History Household Members: Family Housing: House Alcohol intake: current Alcohol intake frequency: holidays/special occasions only Alcohol type: hard liquor Patient Tobacco Use Status: Current everyday Tobacco user Tobacco use type: Cigarette Cigarettes Per Day: 5 e-Cigarette/Vaping Use: Currently Using Substance Use Type: Marijuana Advance Directives: No service: No Current occupational status: employed 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 Blood pressure normal. Heart rate normal. Respiratory rate normal. Temperature normal. Oxygen saturation normal. Const General: cooperative, healthy appearing and no acute distress Orientation/consciousness: oriented to person, oriented to place, oriented to time and patient oriented x3 Limitations: no limitations HENMT Head: Yes normocephalic and Yes atraumatic Ears: external ears normal, TM's normal bilaterally and EAC's normal General nose exam: Normal external nose present and Normal nasal mucous membranes and turbinates present Face and sinus: Yes face symmetric Mouth: Normal oral and palatal mucosa present, oropharynx normal, moist mucous membranes, no trismus and No restricted motion Throat: Yes uvula midline, Yes abnormal tonsil (erythema, no exudates, 3+ bilat, tonsiliths present), No peritonsillar mass and No uvular edema Eyes Pupils: Equal, round and reactive pupils present Neck Neck: Yes normal visual inspection, Yes no lymphadenopathy and Yes supple Resp Effort & Inspection: normal respiratory effort and able to speak in complete sentences Auscultation: clear to auscultation bilaterally Cardio Rate: regular rate Rhythm: regular rhythm Heart sounds: S1 normal heart sound present and S2 normal heart sound present GI Palpation (GI): Soft to palpation and nontender Auscultation: normoactive bowel sounds General: Yes no CVA tenderness Back/Spine/Pelvis Back: no CVA tenderness Skin General skin exam: elasticity normal and turgor normal Neuro General: oriented to person, oriented to place, oriented to time, patient oriented x3, moves all extremities, no focal motor deficits and CN's II-XI intact bilaterally Cranial nerves: Yes Equal, round and reactive pupils present Cognition (Neuro): normal cognition Extrem General: Yes full ROM, Yes no pedal edema and Yes no calf tenderness Psych Mental Status: mental status grossly normal Affect: normal affect Thought process: Normal thought process present Course Course Course Narrative: This is an RME: Additional HPI, ROS, PE not included below will be deferred to primary provider. This is a 23-year-old male presenting to the emergency department with complaints of inability to talk due to sore throat. Also endorsing headache chills symptoms started on Tuesday. Patient with bilateral tonsillar hypertrophy with exudates. No trismus, drooling. Plan: Viral swabs, strep Medical Decision Making Medical Decision Making MDM Narrative: Patient is a 23-year-old male presenting to the emergency department with complaint of sore throat, painful swallowing, hoarse voice, shortness of breath, headaches, fatigue, nausea/vomiting and chills since Tuesday. On exam patient is awake, A+Ox3, VS WNL, afebrile, normal neurological exam without focal deficits, physical exam findings as above. Given reported symptoms and physical exam findings, initial differential includes strep pharyngitis, COVID, flu, RSV, mononucleosis. Given patient has only been symptomatic for 3 days, testing for mono is not appropriate at this time. Discussed with patient that if symptoms continue beyond 7 days, he could be tested for mono at that time. Viral swab positive for COVID, negative for RSV and flu. Patient updated on results. He states he has previously had a COVID infection before and has also had COVID vaccines. Discussed treatment with Paxlovid which patient declined. Advised patient to use Tylenol for discomfort as well as [id number] Chloraseptic spray. Offered to order viscous lidocaine for patient to swish and spit in the emergency department which patient declined, specifically requestin g a throat lozenge. Discussed isolation precautions and masking with patient. Return precautions discussed. Patient verbalized understanding of and agreement with plan. Differential Diagnosis Differential Diagnoses: The differential diagnosis associated with the presentation includes As per [facility]. Admission/Observation Consideration of admission/observation: Escalation of care including admission/observation considered Patient would have been admitted to the hospital had their work up had any findings where hospital admission was appropriate and their clinical presentation warranted hospital admission. Lab Data [facility] Lab Attestation statement: I reviewed the patient's lab results. As per [facility] Labs: Lab Results 06/07/23 Range/Units 14:46 Influenza Type A (PCR) NEGATIVE (Negative) Influenza Type B (PCR) NEGATIVE (Negative) RSV RNA Qual (PCR) NEGATIVE (Negative) SARS-CoV-2 RNA (RT-PCR) POSITIVE A (Negative) S. pyogenes GrpA KAREN Negative (Negative) External Record Review External record reviewed: Inpatient record, Office record and Outpatient record Prescription Management I considered prescription management with: Antiviral Discharge Plan Discharge Clinical Impression: COVID-19 Patient Disposition: Home, Self-Care Instructions: COVID-19 (Coronavirus Disease 2019) (ED) Additional Instructions: You were evaluated in the emergency department today for sore throat, fever. Your COVID test was resulted as positive. You should continue to isolate at home for another 3 days. You should continue to wear mask for 5 days after that. We recommend that you take 650mg of Tylenol every 6 hours as needed for fever or discomfort. You can gargle with warm salt water several times daily. You can also use [id number] Chloraseptic spray for sore throat. Return to the emergency department with worsening shortness of breath, chest pain, fever that does not improve with Tylenol, persistent vomiting, or any other concerning symptoms. You should follow-up with your primary care provider. Prescriptions: No Action metoprolol succinate 25 mg tablet extended release 24 hr 12.5 mg PO BID 90 Days Qty: 90 0RF loratadine 10 mg tablet 1 tab PO DAILY aripiprazole [Abilify] 2 mg tablet 1 mg PO BEDTIME 30 Days Qty: 15 1RF nicotine [Nicoderm CQ] 21 mg/24 hr patch 24 hour 1 patch transdermal DAILY 28 Days Qty: 28 3RF triamcinolone acetonide 0.1 % ointment topical sennosides [Senna Laxative] 8.6 mg tablet 17.2 mg PO BEDTIME albuterol sulfate [Ventolin HFA] 90 mcg/actuation HFA aerosol inhaler 2 puff inhalation Q4-6H PRN (Reason: shortness of breath or wheezing) 30 Days Qty: 8.5 3RF erythromycin 5 mg/gram (0.5 %) ointment 0.5 inch ophthalmic (eye) TID 7 Days Qty: 3.5 2RF mirtazapine 7.5 mg tablet 7.5 mg PO DAILY 30 Days Qty: 30 0RF budesonide-formoterol [Symbicort] 160-4.5 mcg/actuation HFA aerosol inhaler 2 puff inhalation BID Stand Alone Forms: Work/School Release
--- NOTE | 2023-06-07 14:50 | PC.NURSE ---
swabs obtained/sent to lab.
[2023-06-07 15:00] LABS: IDNOW Serial# 08D9AD1C; Strep A Nucleic Acid Negative (Negative)
[2023-06-07 15:34] LABS: Influenza A PCR NEGATIVE (Negative); Influenza B PCR NEGATIVE (Negative); Resp Syncy Virus RNA Qual PCR NEGATIVE (Negative); SARS COV2 PCR INHOUSE POSITIVE (Negative)
[2023-06-07 15:52] VITALS: BP 121/68; PULSE 72; RESP 16; TEMP 36.9; O2SAT 98
[2023-06-07] MEDS: Throat Lozenge, Medicated LOZENGE 1 LOZENGE MUCOUS MEM (16:13)
--- NOTE | 2023-06-07 16:14 | PC.NURSE ---
medication administered per provider order.
[2023-06-07 16:21] VITALS: BP 121/68; PULSE 72; RESP 16; TEMP 36.9; O2SAT 98
== END 2023-06-07 16:21 | disposition home or self-care (01) ==
PROVIDERS: Physician Assistant Medical; Emergency Provider Emergency Medicine; PCP Family Medicine
DX: U07.1 COVID-19 (principal); R11.2 Nausea with vomiting, unspecified; R13.10 Dysphagia, unspecified; R06.02 Shortness of breath; R51.9 Headache, unspecified
CPT/HCPCS: 0241U; 87651; 99283

== ENCOUNTER 2023-06-10 18:25 | Emergency (ER) | payer OTHER, SELFPAY ==
[2023-06-10 18:47] VITALS: BP 115/71; PULSE 75; RESP 14; TEMP 36.9; O2SAT 98; BMI 30.8
--- NOTE | 2023-06-10 19:02 | ED_ITS ---
HPI - General Adult General Chief complaint: General Medical Stated complaint: covid symptoms Time Seen by Provider: 06/10/23 19:07 Source: patient Mode of arrival: ambulatory Limitations: no limitations History of Present Illness HPI narrative: 23-year-old male with no significant past medical history presents to emergency department with complaints respiratory symptoms. He reports he was diagnosed with COVID on Tuesday and is concerned about returning to work still asymptomatic. 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 He denies any recent fevers, n/v Related Data Home Medications Medication Instructions Recorded Confirmed loratadine 10 mg tablet 1 tab PO DAILY 10/28/21 10/18/22 budesonide-formoterol HFA 160 2 puff inhalation BID 01/14/22 10/18/22 mcg-4.5 mcg/actuation aerosol inhaler (Symbicort) sennosides 8.6 mg tablet (Senna 17.2 mg PO BEDTIME 07/19/22 10/18/22 Laxative) triamcinolone acetonide 0.1 % topical 07/19/22 10/18/22 topical ointment Previous Rx's Medication Instructions Recorded albuterol sulfate 90 mcg/actuation 2 puff inhalation Q4-6H PRN 12/01/22 aerosol inhaler (Ventolin HFA) shortness of breath or wheezing 30 days #8.5 grams erythromycin 5 mg/gram (0.5 %) eye 0.5 inch ophthalmic (eye) TID 7 12/29/22 ointment days #3.5 grams aripiprazole 2 mg tablet (Abilify) 1 mg (1/2 x 2 mg) PO BEDTIME 30 04/11/23 days #15 tabs nicotine 21 mg/24 hr daily 1 patch transdermal DAILY 28 days 04/11/23 transdermal patch (Nicoderm CQ) #28 ea mirtazapine 7.5 mg tablet 7.5 mg PO DAILY 30 days #30 tabs 05/09/23 metoprolol succinate 25 mg 12.5 mg (1/2 x 25 mg) PO BID 90 06/07/23 tablet,extended release 24 hr days #90 tabs Allergies Allergy/AdvReac Type Severity Reaction Status Date / Time ibuprofen [IBUPROFEN] Allergy Intermediate ABD PAIN Verified 05/09/23 10:32 AND REFLUX aspirin [ASA] Allergy Swelling Verified 05/09/23 10:32 avocado Allergy Swelling Verified 05/09/23 10:32 banana Allergy Anaphylaxis Verified 05/09/23 10:32 gluten Allergy Abdominal Verified 05/09/23 10:32 Pain house dust Allergy Unknown Verified 05/09/23 10:32 lactose Allergy Abdominal Verified 05/09/23 10:32 Pain venlafaxine AdvReac Mild vomiting, Verified 05/09/23 10:35 disorintation seasonal Allergy Unknown unknown Uncoded 05/09/23 10:32 Review of Systems Review of Systems: Yes all other systems are reviewed and are negative [facility] Past Medical History Medical History Acid reflux Anxiety Depression Asthma Epidermal inclusion cyst Constipation Surgical History Hx of colonoscopy H/O endoscopy Family History Family History Mother Anxiety Depression Maternal Grandfather Substance abuse Maternal Grandmother Anxiety Depression Father Arthritis Social History Social History Household Members: Family Housing: House Alcohol intake: current Alcohol intake frequency: holidays/special occasions only Alcohol type: hard liquor Patient Tobacco Use Status: Current everyday Tobacco user Tobacco use type: Cigarette Cigarettes Per Day: 5 e-Cigarette/Vaping Use: Currently Using Substance Use Type: Marijuana Advance Directives: No Advance Directives Information Provided: No service: No Current occupational status: employed 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 GENERAL APPEARANCE: A&0 x 4, generally well appearing, no acute distress HENMT: Normal to inspection, atraumatic, face symmetrical. Normal external ears, nose, and oropharynx clear. EYE: PERRLA, EOM intact, structures appear normal NECK: Supple without stiffness or restricted ROM. HEART: Normal rate and regular rhythm, normal S1/S2, no M/R/G LUNGS: LS CTA, moving air well. Able to speak in complete sentences. No crackles, wheezes, or rhonchi auscultated BACK: No CVAT, no obvious deformity EXTREMITIES: Moving all extremities without difficulty. Normal capillary ref ill. NEUROLOGICAL: Alert and oriented, moving all 4 extremities with equal strength. CN not formally tested but appearing grossly intact. Observed to ambulate with normal gait. Cognition normal SKIN: Warm and dry without any lesions, rash, or visible sores Medical Decision Making Medical Decision Making MDM Narrative: Old records reviewed for previous imaging, lab studies, ECGs, and notes. Patient was assessed the emergency department with no acute distress or toxicity noted. Pt educated to wear a mask around patients and maintain strict handwashing. Patient is safe for discharge at this time with plan for [id number] Tylenol and/or NSAID such as ibuprofen or naproxen for fever/d iscomfort with dosing as per packaging. HPI, PE, diagnostics, and plan discussed with patient and family with no unanswered questions at this time. Strict return precautions given to return to the emergency department with new, worsening, or concerning emergent symptoms. Recommended to follow-up with there primary care provider in 24-48 hours for further treatment and management. Discharge Plan Discharge Clinical Impression: Upper respiratory infection Patient Disposition: Home, Self-Care Prescriptions: No Action metoprolol succinate 25 mg tablet extended release 24 hr 12.5 mg PO BID 90 Days Qty: 90 0RF loratadine 10 mg tablet 1 tab PO DAILY aripiprazole [Abilify] 2 mg tablet 1 mg PO BEDTIME 30 Days Qty: 15 1RF nicotine [Nicoderm CQ] 21 mg/24 hr patch 24 hour 1 patch transdermal DAILY 28 Days Qty: 28 3RF triamcinolone acetonide 0.1 % ointment topical sennosides [Senna Laxative] 8.6 mg tablet 17.2 mg PO BEDTIME albuterol sulfate [Ventolin HFA] 90 mcg/actuation HFA aerosol inhaler 2 puff inhalation Q4-6H PRN (Reason: shortness of breath or wheezing) 30 Days Qty: 8.5 3RF erythromycin 5 mg/gram (0.5 %) ointment 0.5 inch ophthalmic (eye) TID 7 Days Qty: 3.5 2RF mirtazapine 7.5 mg tablet 7.5 mg PO DAILY 30 Days Qty: 30 0RF budesonide-formoterol [Symbicort] 160-4.5 mcg/actuation HFA aerosol inhaler 2 puff inhalation BID Referrals: Eduardo Marquez MD [Primary Care Provider] - Stand Alone Forms: Work/School Release Interventions: ED Discharge Assessment Last Done: 06/10/23 19:59 Discharge Date/Time: 06/10/23 20:00 Print Language: [place]
[2023-06-10 19:53] VITALS: BP 120/67; PULSE 80; RESP 16; TEMP 37.1; O2SAT 96
[2023-06-10 19:59] VITALS: BP 120/67; PULSE 80; RESP 16; TEMP 37.1; O2SAT 96
== END 2023-06-10 20:00 | disposition home or self-care (01) ==
PROVIDERS: Emergency Provider Emergency Medicine; PCP Family Medicine
DX: J06.9 Acute upper respiratory infection, unspecified (principal); J45.909 Unspecified asthma, uncomplicated; Z86.16 Personal history of COVID-19
CPT/HCPCS: 99282; 99283

== ENCOUNTER → 2023-08-05 16:34 | Outpatient (AMB) | payer OTHER, SELFPAY ==
--- NOTE | 2023-08-05 16:35 | MHC.PC.OV ---
Vital Signs 08/05/23 16:36 Height 5 ft 5 in Weight 171 lb 5 oz BMI 28.5 BP 138/68 Blood Pressure Location Lt brachial Position Sitting Pulse 89 Pulse Source Pulse Oximeter Pulse Oximetry (%) 97 Oxygen Delivery Method Room Air Intake Visit Reasons: f/u anxiety/depression Intake Note: Patient is here for follow up on anxiety and depression. He would like to talk about the beta calvin. Allergies ibuprofen [IBUPROFEN] Allergy (Intermediate, Verified 08/05/23 16:43) ABD PAIN AND REFLUX aspirin [ASA] Allergy (Verified 08/05/23 16:43) Swelling avocado Allergy (Verified 08/05/23 16:43) Swelling banana Allergy (Verified 08/05/23 16:43) Anaphylaxis gluten Allergy (Verified 08/05/23 16:43) Abdominal Pain house dust Allergy (Verified 08/05/23 16:43) Unknown lactose Allergy (Verified 08/05/23 16:43) Abdominal Pain venlafaxine Adverse Reaction (Mild, Verified 08/05/23 16:43) vomiting, disorintation seasonal Allergy (Unknown, Uncoded 08/05/23 16:43) unknown Medication List - Last Reconciled 08/05/23 by Eduardo Marquez MD albuterol sulfate 90 mcg/actuation (Ventolin HFA) 2 puffs inhalation Q4-6H PRN 30 days aripiprazole (Abilify) 1 mg (1/2 x 2 mg) PO BEDTIME 30 days budesonide-formoterol 160-4.5 mcg/actuation (Symbicort) 2 puffs inhalation BID erythromycin 0.5 inches ophthalmic (eye) TID 7 days loratadine 1 tab PO DAILY metoprolol succinate ER 12.5 mg (1/2 x 25 mg) PO BID 90 days mirtazapine 7.5 mg PO DAILY 30 days nicotine (Nicoderm CQ) 1 patch transdermal DAILY 28 days sennosides (Senna Laxative) 17.2 mg PO BEDTIME triamcinolone acetonide 0.1% topical Tobacco use date assessed: 08/05/23 Dental Screening Dental Screen Date: 05/09/23 HPI f/u anxiety/depression HPI Details 23 y/o male presents to f/u anxiety/depression. Advised he increase his Abilify from 1 mg daily to 2 mg daily. PHQ-9 16. PAULA-13 Pt notes he has not been taking the increase in his Abilify. Pt is requesting a resistance brazer for his asthma. Pt reports random, intermittent prostate pain. [facility] Medical History Acid reflux Anxiety Depression Asthma Epidermal inclusion cyst Constipation Surgical History Hx of colonoscopy H/O endoscopy Family History Mother Anxiety Depression Maternal Grandfather Substance abuse Maternal Grandmother Anxiety Depression Father Arthritis Social History Household Members: Family Housing: House Alcohol intake: current Alcohol intake frequency: holidays/special occasions only Alcohol type: hard liquor Patient Tobacco Use Status: Current everyday Tobacco user Tobacco use type: Cigarette Cigarettes Per Day: 5 e-Cigarette/Vaping Use: Currently Using Substance Use Type: Marijuana service: No Current occupational status: employed 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 1. Little interest or pleasure in doing things: nearly every day 2. Feeling down, depressed, or hopeless: several days 3. Trouble falling or staying asleep, or sleeping too much: nearly every day 4. Feeling tired or having little energy: more than half the days 5. Poor appetite or overeating: not at all 6. Feeling bad about yourself - or that you are a failure or have let yourself or your family down: more than half the days 7. Trouble concentrating on things, such as reading the newspaper or watching television: nearly every day 8. Moving or speaking so slowly that other people could have noticed. Or the opposite - being so fidgety or restless that you have been moving around a lot more than usual: several days 9. Thoughts that you would be better off or of hurting yourself in some way: several days Total score: 16 Depression Screening Interpretation: Positive Depression Screening Done: Yes 58281 - PHQ-9 Billing: Yes Source: Developed by Drs. Ricky Jennings, Laura Giron, Khoa Steiner and colleagues, with an educational claude from [employer]. Thrive Questionnaire Date Thrive assessed: 07/19/22 PAULA-7 AMB Questionnaire PAULA-7 Date PAULA - 7 assessed: 08/05/23 Feeling nervous, anxious, or on edge: 3 = Nearly every day Not being able to stop or control worryin = Nearly every day Worrying too much about different things: 3 = Nearly every day Trouble relaxin = More than half the days Being so restless that it is hard to sit still: 0 = Not at all Becoming easily annoyed or irritable: 1 = Several days Feeling afraid as if something awful might happen: 1 = Several days Total PAULA-7 score (0-4 normal; 5-9 mild; 10-14 moderate; 15-21 severe): 13 Source: Developed by Drs. Ricky Jennings, Laura Giron, Khoa Steiner and colleagues, with an educational claude from [employer]. Review of Systems Const Denies chills, Denies fatigue, Denies fever(s), Denies headache(s) and Denies weakness ENT Denies dizziness and Denies headache(s) Card Denies dyspnea Resp Denies cough, Denies dyspnea, Denies wheezing and Denies other (shortness of breath) Musc Denies numbness and Denies tingling Neuro Denies dizziness, Denies headache(s), Denies numbness, Denies tingling and Denies weakness Psych Reports anxiety and Reports depression Endo Denies fatigue Aller/Immun Denies wheezing Physical exam (Primary Care) Vital Signs: Last Vital Signs Pulse 89 08/05/23 16:36 BP 138/68 08/05/23 16:36 Pulse Ox 97 08/05/23 16:36 Oxygen Delivery Method Room Air 08/05/23 16:36 BMI result Body Mass Index 28.5 Tobacco/Smoking Status: Tobacco use Status Tobacco use date assessed 08/05/23 08/05/23 16:47 Patient Tobacco Use Status Current everyday Tobacco 08/05/23 16:36 Tobacco use type Cigarette 08/05/23 16:36 e-Cigarette/Vaping Use Currently Using 08/05/23 16:36 Depression Screening Interpretation: Positive Thrive Assessment: Date of Thrive Assessment Date Thrive assessed 07/19/22 08/05/23 16:36 Const General: well developed; No acute distress Nutritional Appearance: well nourished Orientation/consciousness: patient oriented x3 HENMT Head: Yes normocephalic and Yes atraumatic Eyes General: appearance normal, both eyes and all related structures Pupils: Equal, round and reactive pupils present EOM: EOMs intact bilaterally Resp Effort & Inspection: normal respiratory effort Neuro General: patient oriented x3 and gait normal Cranial nerves: Yes Equal, round and reactive pupils present Psych Affect: normal affect Assessment and Plan Assessment & Plan (1) Depression with anxiety: Code(s): F41.8 - Other specified anxiety disorders Plan: Patient?has?stopped?mirtazapine?and?Abilify. He?says?that?the?metoprolol?has?not?been?helping?since?he?began?to?understand?the?mechanism?for it. He?also?notes?that?he?has?been?using?Ashwaganda root capsules which are helping. He?can?continue?this?for?now. Can?also?take?a?holiday?from?metoprolol?and?then?use?this?p.r.n. - watch?for?blood?pressure?changes. Will?ask?the?nurse?navigator?to?help?connect?him?with?a?therapist. Also?discussed?website?[employer]?which?he?can?use?to?try?and?find?a?therapist?himself. Will?also?try?to?make?a?direct?referral?to?Psychiatry. (2) Asthma: Code(s): J45.909 - Unspecified asthma, uncomplicated Plan: Patient?requests?referral?to?pulmonology Refer (3) Prostate pain: Code(s): N42.81 - Prostatodynia syndrome Plan: Patient?has?intermittent?rectal?pain?which?radiates?into?left?testicle Unclear?cause. ? ?Prostatitis, orchitis Checking?urine?study Orders: Orders CT NG by PCR Today Z11.3 - Encounter for screening for infections with a predominantly sexual mode of transmission UA and rflx microscopic Today N42.81 - Prostatodynia syndrome, Z00.00 - Encounter for general adult medical examination without abnormal findings Referrals Pulmonology Referral J45.909 - Unspecified asthma, uncomplicated Coding Level of Care Code Est Pt Level 3 (87853) Diagnoses Depression with anxiety F41.8 Asthma J45.909 Prostate pain N42.81
[2023-08-05 16:36] VITALS: BP 138/68; PULSE 89; O2SAT 97; BMI 28.5
== END ==
PROVIDERS: PCP Family Medicine; Visit Provider Family Medicine
DX: J45.909 Unspecified asthma, uncomplicated (principal); F41.8 Other specified anxiety disorders; N42.81 Prostatodynia syndrome
CPT/HCPCS: 99213

== ENCOUNTER 2023-08-05 17:43 | Outpatient (REF) | payer OTHER, SELFPAY ==
[2023-08-05 19:31] LABS: Appearance Urine Clear; Color Urine Yellow; Glucose Urine UA Negative (Negative); Leukocyte Esterase Urine Negative (Negative); Nitrite Urine Negative (Negative); PH 7.5 (5.0-9.0); Urine Blood Negative (Negative); Urine Ketones Negative (Negative); Urine Protein Negative (Neg-Trace)
[2023-08-06 03:39] LABS: CT PCR NOT DETECTED (Not Detect.); NG PCR NOT DETECTED (Not Detect.)
== END 2023-08-05 17:44 | disposition home or self-care (01) ==
LOC: HO.LAB 17:43
PROVIDERS: Visit Provider Family Medicine
DX: Z00.00 Encounter for general adult medical examination without abnormal findings (principal); Z11.3 Encounter for screening for infections with a predominantly sexual mode of transmission; N42.81 Prostatodynia syndrome
CPT/HCPCS: 0353U; 81003

== ENCOUNTER 2023-09-01 14:38 | Outpatient (REF) | payer OTHER, SELFPAY ==
[2023-09-01 15:31] LABS: MANUAL DIFF FLAG NO
[2023-09-01 16:10] LABS: Basophils Percent Auto 0.5 % (0-2); Eosinophils Absolute Auto 0.1 X10*3/uL (0.0-0.4); Eosinophils Percent Auto 1.3 % (0-4); Hematocrit 45.1 % (42.0-52.0); Hemoglobin 14.9 g/dl (14.0-18.0); Imm Gran Abs Auto 0.03 X10*3/uL (0.00-0.03); Imm Gran Pct Auto 0.4 % (0.0-0.4); Lymphocytes Absolute Auto 1.9 X10*3/uL (1.2-4.9); Mean Corpuscular Hemoglobin 27.2 pg (27.0-33.0); Mean Corpuscular Volume 82.4 fL (80.0-98.0); Mean Platelet Volume 9.5 fL (9.4-12.4); Monocytes Absolute Auto 0.6 X10*3/uL (0.1-1.2); Monocytes Percent Auto 8.3 % (2-11); Neutrophils Absolute Auto 4.7 x10*3/uL (2.0-8.3); Neutrophils Percent Auto 63.5 % (45-73); Platelet Count 304 X10*3/uL (160-400); Red Blood Count 5.47 X10*6/uL (4.60-5.80); Red Cell Distribution Width 12.8 % (11.0-16.0); White Blood Count 7.5 X10*3/uL (4.8-10.8)
[2023-09-06 09:24] LABS: Class Alternaria alternata 3; Class Aspergillus fumigatus 3; Class Bermuda Grass 1; Class Birch 3; Class Cat Dander 3; Class Cladosporium herbarum 3; Class Cockroach 2; Class Common Ragweed 3; Class Cottonwood 1; Class Derm. pterony 3; Class Dermatophagoides farinae 2; Class Dog Dander 4; Class Elm 2; Class Maple Box Elder 0/1; Class Mountain Cedar 1; Class Mouse Urine Protein 0; Class Mugwort 0/1; Class Oak 2; Class Penicillium crysogenum 2; Class Rough Pigweed 0/1; Class Sheep Sorrel 0/1; Class Sycamore 1; Class Timothy Grass 0/1; Class Walnut Tree 2; Class White Ash 2; Class White Mulberry 0; D001 IgE D pteronyssinus 4.52 kU/L; E001 - IgE Cat Dander 8.36 kU/L; E072-IgE Mouse Urine <0.10 kU/L; G002 IgE Bermuda Grass 0.37 kU/L; G006 - IgE Timothy Grass 0.18 kU/L; I006-IgE Cockroach, German 1.79 kU/L; Immunoglobulin E 1023 kU/L (<OR=114); M001 IgE Penicillium chrysogen 1.13 kU/L; M003 - IgE Aspergillus fumigat 7.72 kU/L; M006 - IgE Alternaria alternat 7.84 kU/L; T001 IgE Maple/Box Elder 0.34 kU/L; T003 IgE Common Silver Birch 4.22 kU/L; T007 - IgE Oak, White 2.22 kU/L; T008 IgE Elm, American 0.96 kU/L; T010 - IgE Walnut 1.23 kU/L; T015 - IgE Ash, White 1.62 kU/L; T070 - IgE White Mulberry <0.10 kU/L; W001 - IgE Ragweed, Short 7.84 kU/L; W006 - IgE Mugwort 0.27 kU/L; W014 IgE Pigweed, Common 0.13 kU/L; W018 IgE Sheep Sorrel 0.11 kU/L
== END 2023-09-01 14:39 | disposition home or self-care (01) ==
LOC: HO.LAB 14:38
PROVIDERS: PCP Family Medicine; Visit Provider Internal Medicine Pulmonary Disease
DX: J45.909 Unspecified asthma, uncomplicated (principal); I45.9 Conduction disorder, unspecified; Z91.09 Other allergy status, other than to drugs and biological substances
CPT/HCPCS: 36415; 82785; 85025; 86003; 99202

== ENCOUNTER 2023-09-01 14:38 | Outpatient (AMB) | payer OTHER, SELFPAY ==
[2023-09-01 14:39] VITALS: BP 112/72; PULSE 112; O2SAT 97; BMI 28.4
--- NOTE | 2023-09-01 14:39 | A.OFFVIS_ITS ---
Vital Signs 09/01/23 14:39 Height 5 ft 5 in Weight 170 lb 13.732 oz BMI 28.4 BP 112/72 Blood Pressure Location Rt brachial Position Sitting Pulse 112 H Pulse Oximetry (%) 97 Oxygen Delivery Method Room Air Intake Visit Reasons: Unspecified asthma Allergies ibuprofen [IBUPROFEN] Allergy (Intermediate, Verified 08/05/23 16:43) ABD PAIN AND REFLUX aspirin [ASA] Allergy (Verified 08/05/23 16:43) Swelling avocado Allergy (Verified 08/05/23 16:43) Swelling banana Allergy (Verified 08/05/23 16:43) Anaphylaxis gluten Allergy (Verified 08/05/23 16:43) Abdominal Pain house dust Allergy (Verified 08/05/23 16:43) Unknown lactose Allergy (Verified 08/05/23 16:43) Abdominal Pain venlafaxine Adverse Reaction (Mild, Verified 08/05/23 16:43) vomiting, disorintation seasonal Allergy (Unknown, Uncoded 08/05/23 16:43) unknown HPI HPI Unspecified asthma: Details: 23-year-old gentleman, current active smoker and also uses vapes with underlying history of asthma since childhood previously controlled on Symbicort that he has been using once a day and albuterol MDI referred for pulmonary evaluation. Patient states that over the last year his asthma control has been getting much worse and he has been requiring to use albuterol MDI multiple times a day. He also complains of environmental allergies. Patient denies having recent pulmonary function testing or allergy testing. Patient denies family history of lung disease. Patient had also complain of multiple episodes of skipped beats and is interested in seeing Cardiology. Patient does have a dog as a pet. He is employed without exposure to industrial dusts. [facility] Medical History Acid reflux Anxiety Depression Asthma Epidermal inclusion cyst Constipation Surgical History Hx of colonoscopy H/O endoscopy Family History Mother Anxiety Depression Maternal Grandfather Substance abuse Maternal Grandmother Anxiety Depression Father Arthritis Social History Household Members: Family Housing: House Alcohol intake: current Alcohol intake frequency: holidays/special occasions only Alcohol type: hard liquor Patient Tobacco Use Status: Current everyday Tobacco user Tobacco use type: Cigarette Cigarettes Per Day: 5 e-Cigarette/Vaping Use: Currently Using Substance Use Type: Marijuana service: No Current occupational status: employed 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 Sexual orientation: Did not discuss Cognitive needs: No Hearing needs: No Vision needs: No Review of Systems Const Denies daytime sleepiness, Denies excessive sweating, Denies fatigue, Denies fever(s), Denies lethargy, Denies malaise, Denies night sweats, Denies snoring and Denies weight loss Eyes Denies blurry vision and Denies itchy eyes ENT Denies nasal congestion, Denies post nasal drip, Denies sinus pain, Denies sinus pressure and Denies other ( Thrush) Card Denies chest pain, Denies pedal edema, Reports dyspnea, Denies orthopnea and Denies paroxysmal nocturnal dyspnea Resp Denies cough, Denies hemoptysis, Denies excessive phlegm production, Reports dyspnea, Denies snoring and Reports wheezing GI Denies abdominal pain and Denies heartburn Musc Denies myalgias, Denies arthralgias and Denies joint swelling Skin/Breast Denies rash Neuro Denies memory loss and Denies seizure-like activity Psych Denies abnormal sleep pattern, Denies anxiety and Denies memory loss Endo Denies excessive sweating, Denies fatigue and Denies heat intolerance Chong/Lymph Denies easy bruising Aller/Immun Denies itchy eyes, Denies seasonal rhinorrhea and Reports wheezing Physical Exam Vital Signs: Last Vital Signs Pulse 112 H 09/01/23 14:39 BP 112/72 09/01/23 14:39 Pulse Ox 97 09/01/23 14:39 Oxygen Delivery Method Room Air 09/01/23 14:39 BMI result Body Mass Index 28.4 Const General: no acute distress and alert Nutritional Appearance: not obese Orientation/consciousness: Other orientation findings ( oriented) HEENT Head: Yes atraumatic Eyes General: appearance normal, both eyes and all related structures Sclerae: sclerae normal EOM: EOMs intact bilaterally Neck Neck: Yes supple Lymphatic: no lymphadenopathy noted Resp Effort & Inspection: normal respiratory effort and no use of accessory muscles Auscultation: clear to auscultation bilaterally Cardio Rate: regular rate Rhythm: regular rhythm Heart sounds: no gallops, no murmurs and no rubs Skin General skin exam: other ( warm) Extrem General: No clubbing, No cyanosis and No edema Assessment & Plan Assessment & Plan (1) Asthma: Code(s): J45.909 - Unspecified asthma, uncomplicated Category: Medical Plan: suboptimally controlled on once a day Symbicort 160. Patient has been advised to use it twice a day. Will obtain full PFT. Continue albuterol MDI. Will obtain chest x-ray. (2) Environmental allergies: Code(s): Z91.09 - Other allergy status, other than to drugs and biological substances Category: Medical Plan: Will obtain IgE level, CBC with differential, and RAST panel for further evaluation. (3) Skipped heart beats: Code(s): I45.9 - Conduction disorder, unspecified Category: Medical Plan: Patient states that he had prior appointment with Cardiology that he was not able to attend and would like to be evaluated by Cardiology. Orders: Orders XR chest 2V Today J45.909 - Unspecified asthma, uncomplicated Resp Allergy Profile Region I Today J45.909 - Unspecified asthma, uncomplicated PFT pulmonary function test Today J45.909 - Unspecified asthma, uncomplicated Complete Blood Count Auto Diff Today J45.909 - Unspecified asthma, uncomplicated Referrals Cardiology Referral I45.9 - Conduction disorder, unspecified Coding Level of Care Code New Pt Level 4 (84409) Diagnoses Asthma J45.909 Environmental allergies Z91.09 Skipped heart beats I45.9
== END 2023-09-01 15:04 | disposition home or self-care (01) ==
PROVIDERS: PCP Family Medicine; Visit Provider Internal Medicine Pulmonary Disease
DX: J45.909 Unspecified asthma, uncomplicated (principal); Z91.09 Other allergy status, other than to drugs and biological substances; I45.9 Conduction disorder, unspecified
CPT/HCPCS: 99204

== ENCOUNTER 2023-10-11 15:23 | Outpatient (REF) | payer OTHER, SELFPAY ==
--- NOTE | ~2023-10-11 | XR_ITS ---
EXAMINATION: XR CHEST CLINICAL INFORMATION: Worsening asthma. Right sided lung pain x 4 years. COMPARISON: None available. TECHNIQUE: 2 views of the chest were obtained. FINDINGS: No significant abnormality is noted involving the heart, lungs, mediastinum, bony thorax or soft tissues. XR/XR chest 2V IMPRESSION: Normal chest PA and lateral.
== END 2023-10-11 15:24 | disposition home or self-care (01) ==
LOC: HO.XRAY 15:23
PROVIDERS: PCP Family Medicine; Visit Provider Internal Medicine Pulmonary Disease
DX: J45.909 Unspecified asthma, uncomplicated (principal); Z91.09 Other allergy status, other than to drugs and biological substances; L20.9 Atopic dermatitis, unspecified
CPT/HCPCS: 71046; 99212

== ENCOUNTER 2023-10-11 15:23 | Outpatient (AMB) | payer OTHER, SELFPAY ==
[2023-10-11 15:27] VITALS: BP 132/79; PULSE 94; O2SAT 96; BMI 28.8
--- NOTE | 2023-10-11 15:27 | MHC.OFFVIS ---
Vital Signs 10/11/23 15:27 Height 5 ft 5 in Weight 173 lb 1.006 oz BMI 28.8 BP 132/79 Blood Pressure Location Rt brachial Position Sitting Pulse 94 Pulse Source Doppler Pulse Oximetry (%) 96 Oxygen Delivery Method Room Air Intake Visit Reasons: Unspecified asthma Allergies ibuprofen [IBUPROFEN] Allergy (Intermediate, Verified 08/05/23 16:43) ABD PAIN AND REFLUX aspirin [ASA] Allergy (Verified 08/05/23 16:43) Swelling avocado Allergy (Verified 08/05/23 16:43) Swelling banana Allergy (Verified 08/05/23 16:43) Anaphylaxis gluten Allergy (Verified 08/05/23 16:43) Abdominal Pain house dust Allergy (Verified 08/05/23 16:43) Unknown lactose Allergy (Verified 08/05/23 16:43) Abdominal Pain venlafaxine Adverse Reaction (Mild, Verified 08/05/23 16:43) vomiting, disorintation seasonal Allergy (Unknown, Uncoded 08/05/23 16:43) unknown HPI HPI Unspecified asthma: Details: 23-year-old gentleman, current active smoker and also uses vapes with underlying history of asthma since childhood previously controlled on Symbicort that he has been using once a day and albuterol MDI referred for pulmonary evaluation. Patient states that over the last year his asthma control has been getting much worse and he has been requiring to use albuterol MDI multiple times a day. He also complains of environmental allergies. Patient denies having recent pulmonary function testing or allergy testing. Patient denies family history of lung disease. Patient had also complain of multiple episodes of skipped beats and is interested in seeing Cardiology. Patient does have a dog as a pet. He is employed without exposure to industrial dusts. After the last office visit patient had completed his immunologic studies showing significant immunologic component. He tried Symbicort twice a day with suboptimal control of his symptoms. [facility] Medical History Acid reflux Anxiety Depression Asthma Epidermal inclusion cyst Constipation Surgical History Hx of colonoscopy H/O endoscopy Family History Mother Anxiety Depression Maternal Grandfather Substance abuse Maternal Grandmother Anxiety Depression Father Arthritis Social History Household Members: Family Housing: House Alcohol intake: current Alcohol intake frequency: holidays/special occasions only Alcohol type: hard liquor Patient Tobacco Use Status: Current everyday Tobacco user Tobacco use type: Cigarette Cigarettes Per Day: 5 e-Cigarette/Vaping Use: Currently Using Substance Use Type: Marijuana service: No Current occupational status: employed 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 Sexual orientation: Did not discuss Cognitive needs: No Hearing needs: No Vision needs: No Review of Systems Const Denies daytime sleepiness, Denies excessive sweating, Denies fatigue, Denies fever(s), Denies lethargy, Denies malaise, Denies night sweats, Denies snoring and Denies weight loss Eyes Denies blurry vision and Denies itchy eyes ENT Denies nasal congestion, Denies post nasal drip, Denies sinus pain, Denies sinus pressure and Denies other ( Thrush) Card Denies chest pain, Denies pedal edema, Denies dyspnea, Denies orthopnea and Denies paroxysmal nocturnal dyspnea Resp Denies cough, Denies hemoptysis, Denies excessive phlegm production, Denies dyspnea, Denies snoring and Denies wheezing GI Denies abdominal pain and Denies heartburn Musc Denies myalgias, Denies arthralgias and Denies joint swelling Skin/Breast Denies rash Neuro Denies memory loss and Denies seizure-like activity Psych Denies abnormal sleep pattern, Denies anxiety and Denies memory loss Endo Denies excessive sweating, Denies fatigue and Denies heat intolerance Chong/Lymph Denies easy bruising Aller/Immun Denies itchy eyes, Denies seasonal rhinorrhea and Denies wheezing Physical Exam Vital Signs: Last Vital Signs Pulse 94 10/11/23 15:27 BP 132/79 10/11/23 15:27 Pulse Ox 96 10/11/23 15:27 Oxygen Delivery Method Room Air 10/11/23 15:27 BMI result Body Mass Index 28.8 Const General: no acute distress and alert Nutritional Appearance: not obese Orientation/consciousness: Other orientation findings ( oriented) HEENT Head: Yes atraumatic Eyes General: appearance normal, both eyes and all related structures Sclerae: sclerae normal EOM: EOMs intact bilaterally Neck Neck: Yes supple Lymphatic: no lymphadenopathy noted Resp Effort & Inspection: normal respiratory effort and no use of accessory muscles Auscultation: clear to auscultation bilaterally Cardio Rate: regular rate Rhythm: regular rhythm Heart sounds: no gallops, no murmurs and no rubs Skin General skin exam: other ( warm) Extrem General: No clubbing, No cyanosis and No edema Assessment & Plan Assessment & Plan (1) Asthma: Code(s): J45.909 - Unspecified asthma, uncomplicated Category: Medical (2) Environmental allergies: Code(s): Z91.09 - Other allergy status, other than to drugs and biological substances Category: Medical (3) Atopic dermatitis: Code(s): L20.9 - Atopic dermatitis, unspecified Category: Medical Plan Symptoms suboptimally controlled on Symbicort and albuterol MDI. Also has underlying significant atopic dermatitis and substantial immunologic component to his symptoms, thus will request Dupixent approval. Continue nicotine replacement therapy for smoking cessation. Medications: New nicotine 10 mg inhalation QID PRN 168 ea 1RF smoking cessation Coding Level of Care Code Est Pt Level 4 (04864) Diagnoses Asthma J45.909 Environmental allergies Z91.09 Atopic dermatitis L20.9
== END 2023-10-11 15:43 | disposition home or self-care (01) ==
PROVIDERS: PCP Family Medicine; Visit Provider Internal Medicine Pulmonary Disease
DX: J45.909 Unspecified asthma, uncomplicated (principal); Z91.09 Other allergy status, other than to drugs and biological substances; L20.9 Atopic dermatitis, unspecified
CPT/HCPCS: 99214

== ENCOUNTER 2023-10-17 09:44 | Outpatient (AMB) | payer OTHER, SELFPAY ==
--- NOTE | 2023-10-17 10:17 | MHC.OFFVIS ---
Vital Signs 10/17/23 10:18 Height 5 ft 5 in Weight 171 lb 15.369 oz BMI 28.6 Pulse 111 H Pulse Source Pulse Oximeter Pulse Oximetry (%) 96 Oxygen Delivery Method Room Air Intake Visit Reasons: Dupixent teach Allergies ibuprofen [IBUPROFEN] Allergy (Intermediate, Verified 10/17/23 10:18) ABD PAIN AND REFLUX aspirin [ASA] Allergy (Verified 10/17/23 10:18) Swelling avocado Allergy (Verified 10/17/23 10:18) Swelling banana Allergy (Verified 10/17/23 10:18) Anaphylaxis gluten Allergy (Verified 10/17/23 10:18) Abdominal Pain house dust Allergy (Verified 10/17/23 10:18) Unknown lactose Allergy (Verified 10/17/23 10:18) Abdominal Pain venlafaxine Adverse Reaction (Mild, Verified 10/17/23 10:18) vomiting, disorintation seasonal Allergy (Unknown, Uncoded 10/17/23 10:18) unknown Medication List - Last Reconciled 10/17/23 by Meredith Ledesma, ANGEL albuterol sulfate 90 mcg/actuation (Ventolin HFA) 2 puffs inhalation Q4-6H PRN 30 days budesonide-formoterol 160-4.5 mcg/actuation (Symbicort) 2 puffs inhalation BID dupilumab (Dupixent) 300 mg (2 mL) subcut Q2W erythromycin 0.5 inches ophthalmic (eye) TID 7 days loratadine 1 tab PO DAILY metoprolol succinate ER 12.5 mg (1/2 x 25 mg) PO BID 90 days nicotine (Nicoderm CQ) 1 patch transdermal DAILY 28 days nicotine 10 mg inhalation QID PRN sennosides (Senna Laxative) 17.2 mg PO BEDTIME triamcinolone acetonide 0.1% topical HPI Comments Details: Jaya is here for a Dupixent teach he was educated on hand washing, injection preparation, administration, and disposal. Jaya was able to return demonstrate proper technique for hand washing, injection preparation, administration and disposal of needle and states he has no questions at this time. Medication Dupixent 300mg/2mL pre-filled pen (patient?s own meds) Loading dose of 600mg given by the patient in 2 SQ injections; injection #1 L thigh ;? injection #2 R thigh? Lot# [id number] expires 05/18/2025. Patient aware his next injection is in 15 days. Nurse visit only.? PFSH Medical History Acid reflux Anxiety Depression Asthma Epidermal inclusion cyst Constipation Surgical History Hx of colonoscopy H/O endoscopy Family History Mother Anxiety Depression Maternal Grandfather Substance abuse Maternal Grandmother Anxiety Depression Father Arthritis Social History Household Members: Family Housing: House Alcohol intake: current Alcohol intake frequency: holidays/special occasions only Alcohol type: hard liquor Patient Tobacco Use Status: Current everyday Tobacco user Tobacco use type: Cigarette Cigarettes Per Day: 5 e-Cigarette/Vaping Use: Currently Using Substance Use Type: Marijuana service: No Current occupational status: employed 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
[2023-10-17 10:18] VITALS: PULSE 111; O2SAT 96; BMI 28.6
== END 2023-10-17 10:27 | disposition home or self-care (01) ==
PROVIDERS: PCP Family Medicine; Visit Provider Internal Medicine Pulmonary Disease
DX: J45.909 Unspecified asthma, uncomplicated (principal)

== ENCOUNTER → 2023-10-17 09:44 | Outpatient (BNVA) | payer OTHER, SELFPAY | PROVIDERS: PCP Family Medicine; Visit Provider Internal Medicine Pulmonary Disease | DX: J45.909 Unspecified asthma, uncomplicated (principal) | CPT/HCPCS: 99211 ==

== ENCOUNTER 2023-11-01 10:39 | Outpatient (AMB) | payer OTHER, SELFPAY ==
[2023-11-01 11:11] VITALS: BMI 28.5
--- NOTE | 2023-11-01 11:11 | A.OFFVIS_ITS ---
Vital Signs 11/01/23 11:11 Height 5 ft 5 in Weight 171 lb BMI 28.5 Intake Visit Reasons: Dupixent Teaching [employer] Medic Required: No Accompanied by: Self / Same As Patient Allergies ibuprofen [IBUPROFEN] Allergy (Intermediate, Verified 11/01/23 11:12) ABD PAIN AND REFLUX aspirin [ASA] Allergy (Verified 11/01/23 11:12) Swelling avocado Allergy (Verified 11/01/23 11:12) Swelling banana Allergy (Verified 11/01/23 11:12) Anaphylaxis gluten Allergy (Verified 11/01/23 11:12) Abdominal Pain house dust Allergy (Verified 11/01/23 11:12) Unknown lactose Allergy (Verified 11/01/23 11:12) Abdominal Pain venlafaxine Adverse Reaction (Mild, Verified 11/01/23 11:12) vomiting, disorintation seasonal Allergy (Unknown, Uncoded 11/01/23 11:12) unknown Medication List - Last Reconciled 11/01/23 by Tiffany Santiago LPN albuterol sulfate 90 mcg/actuation (Ventolin HFA) 2 puffs inhalation Q4-6H PRN 30 days budesonide-formoterol 160-4.5 mcg/actuation (Symbicort) 2 puffs inhalation BID dupilumab (Dupixent) 300 mg (2 mL) subcut Q2W erythromycin 0.5 inches ophthalmic (eye) TID 7 days loratadine 1 tab PO DAILY metoprolol succinate ER 12.5 mg (1/2 x 25 mg) PO BID 90 days nicotine (Nicoderm CQ) 1 patch transdermal DAILY 28 days nicotine 10 mg inhalation QID PRN sennosides (Senna Laxative) 17.2 mg PO BEDTIME triamcinolone acetonide 0.1% topical HPI Comments Details: Jaya Mckeon here today for teaching with his follow up dose of Dupixent. Reminder of the steps for self injection. Handwashing, injection preparation, administration and proper disposal of sharps. Patient understands the steps and patient is able to properly demonstrate them to me. Medication Dupixent 300mg/2ml prefilled pen (Patient's own medication) given in the left thigh with much close supervision. Patient is anxious about the sting of the medication. He is unsure if he will be able to manage this injection at home. Lot#[id number] Exp 05/18/25. Patient scheduled in 14 days. Nurse visit only. PFSH Medical History Acid reflux Anxiety Depression Asthma Epidermal inclusion cyst Constipation Surgical History Hx of colonoscopy H/O endoscopy Family History Mother Anxiety Depression Maternal Grandfather Substance abuse Maternal Grandmother Anxiety Depression Father Arthritis Social History Household Members: Family Housing: House Alcohol intake: current Alcohol intake frequency: holidays/special occasions only Alcohol type: hard liquor Patient Tobacco Use Status: Current everyday Tobacco user Tobacco use type: Cigarette Cigarettes Per Day: 5 e-Cigarette/Vaping Use: Currently Using Substance Use Type: Marijuana service: No Current occupational status: employed 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
== END 2023-11-01 11:03 | disposition home or self-care (01) ==
PROVIDERS: PCP Family Medicine; Visit Provider Internal Medicine Pulmonary Disease
DX: Z91.09 Other allergy status, other than to drugs and biological substances (principal)

== ENCOUNTER → 2023-11-01 10:39 | Outpatient (BNVA) | payer OTHER, SELFPAY | PROVIDERS: PCP Family Medicine; Visit Provider Internal Medicine Pulmonary Disease | DX: Z91.09 Other allergy status, other than to drugs and biological substances (principal); Z79.620 Long term (current) use of immunosuppressive biologic | CPT/HCPCS: 99211 ==

== ENCOUNTER 2023-11-02 14:23 | Outpatient (AMB) | payer OTHER, SELFPAY ==
--- NOTE | 2023-11-02 14:29 | A.OFFPC_ITS ---
Vital Signs 11/02/23 14:37 Height 5 ft 4 in Weight 178 lb 4 oz BMI 30.6 BP 114/70 Blood Pressure Location Lt brachial Position Sitting Respiration 16 Pulse 90 Pulse Source Pulse Oximeter Temp 98 F Temp Source Tympanic Pulse Oximetry (%) 98 Oxygen Delivery Method Room Air Intake Visit Reasons: F/U anxiety/depression and chronic conditions. Intake Note: follow up for anxiety and depression Allergies ibuprofen [IBUPROFEN] Allergy (Intermediate, Verified 11/02/23 14:35) ABD PAIN AND REFLUX aspirin [ASA] Allergy (Verified 11/02/23 14:35) Swelling avocado Allergy (Verified 11/02/23 14:35) Swelling banana Allergy (Verified 11/02/23 14:35) Anaphylaxis gluten Allergy (Verified 11/02/23 14:35) Abdominal Pain house dust Allergy (Verified 11/02/23 14:35) Unknown lactose Allergy (Verified 11/02/23 14:35) Abdominal Pain venlafaxine Adverse Reaction (Mild, Verified 11/02/23 14:35) vomiting, disorintation seasonal Allergy (Unknown, Uncoded 11/01/23 11:12) unknown Tobacco use date assessed: 08/05/23 Dental Screening Dental Screen Date: 05/09/23 HPI F/U anxiety/depression and chronic conditions. HPI Details 23 y/o male presents to f/u anxiety/depr ession and chronic conditions. He had reported last office visit he had stopped mirtazapine and Abilify. Reports ongoing anxiety. Ongoing complaints of hemorrhoids. He notes it occasionally flares up/goes away. He reports ongoing prostate pain that travels downward to his testicle/rectum. Pt reports concerns regarding fertility. HPI Comments History of Present Illness Details Documentation assistance for Eduardo Marquez MD, was provided by Chilango Ya, [employer] on 11/02/2023 at 2:51 PM EST. I, Dr. Marquez, have read, observed, and verified documentation. PFSH Medical History Acid reflux Anxiety Depression Asthma Epidermal inclusion cyst Constipation Surgical History Hx of colonoscopy H/O endoscopy Family History Mother Anxiety Depression Maternal Grandfather Substance abuse Maternal Grandmother Anxiety Depression Father Arthritis Social History Household Members: Family Housing: House Alcohol intake: current Alcohol intake frequency: holidays/special occasions only Alcohol type: hard liquor Patient Tobacco Use Status: Current everyday Tobacco user Tobacco use type: Cigarette Cigarettes Per Day: 5 e-Cigarette/Vaping Use: Currently Using Substance Use Type: Marijuana service: No Current occupational status: employed 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 1. Little interest or pleasure in doing things: nearly every day 2. Feeling down, depressed, or hopeless: nearly every day 3. Trouble falling or staying asleep, or sleeping too much: nearly every day 4. Feeling tired or having little energy: nearly every day 6. Feeling bad about yourself - or that you are a failure or have let yourself or your family down: nearly every day 7. Trouble concentrating on things, such as reading the newspaper or watching television: nearly every day 8. Moving or speaking so slowly that other people could have noticed. Or the opposite - being so fidgety or restless that you have been moving around a lot more than usual: several days 9. Thoughts that you would be better off or of hurting yourself in some way: nearly every day Depression Screening Interpretation: Positive Depression Screening Done: Yes 36102 - PHQ-9 Billing: Yes Source: Developed by Drs. Ricky Jennings, Laura Giron, Khoa Steiner and colleagues, with an educational claude from [employer]. Thrive Questionnaire Date Thrive assessed: 07/19/22 PAULA-7 AMB Questionnaire PAULA-7 Date PAULA - 7 assessed: 11/02/23 Feeling nervous, anxious, or on edge: 3 = Nearly every day Not being able to stop or control worryin = Nearly every day Worrying too much about different things: 3 = Nearly every day Trouble relaxin = Nearly every day Being so restless that it is hard to sit still: 0 = Not at all Becoming easily annoyed or irritable: 3 = Nearly every day Feeling afraid as if something awful might happen: 3 = Nearly every day Total PAULA-7 score (0-4 normal; 5-9 mild; 10-14 moderate; 15-21 severe): 18 Source: Developed by Drs. Ricky Jennings, Laura Giron, Khoa Steiner and colleagues, with an educational claude from [employer]. PAULA-7 Assessment Billing PAULA-7 Assessment Tool: PAULA-7 Assessment 62150 Review of Systems Const Denies chills, Denies fatigue, Denies fever(s), Denies headache(s) and Denies weakness ENT Denies dizziness and Denies headache(s) Card Denies dyspnea Resp Denies cough, Denies dyspnea, Denies wheezing and Denies other (shortness of breath) Musc Denies numbness and Denies tingling Neuro Denies dizziness, Denies headache(s), Denies numbness, Denies tingling and Denies weakness Psych Reports anxiety and Reports depression Endo Denies fatigue Aller/Immun Denies wheezing Physical exam (Primary Care) Vital Signs: Last Vital Signs Temp 98 F 11/02/23 14:37 Pulse 90 11/02/23 14:37 Resp 16 11/02/23 14:37 BP 114/70 11/02/23 14:37 Pulse Ox 98 11/02/23 14:37 Oxygen Delivery Method Room Air 11/02/23 14:37 BMI result Body Mass Index 30.6 Tobacco/Smoking Status: Tobacco use Status Tobacco use date assessed 08/05/23 11/02/23 14:32 Patient Tobacco Use Status Current everyday Tobacco 11/02/23 14:32 Tobacco use type Cigarette 11/02/23 14:32 e-Cigarette/Vaping Use Currently Using 11/02/23 14:32 Depression Screening Interpretation: Positive Thrive Assessment: Date of Thrive Assessment Date Thrive assessed 07/19/22 11/02/23 14:32 Const General: well developed; No acute distress Nutritional Appearance: well nourished Orientation/consciousness: patient oriented x3 HENMT Head: Yes normocephalic and Yes atraumatic Eyes General: appearance normal, both eyes and all related structures Pupils: Equal, round and reactive pupils present EOM: EOMs intact bilaterally Resp Effort & Inspection: normal respiratory effort Neuro General: patient oriented x3 and gait normal Cranial nerves: Yes Equal, round and reactive pupils present Psych Affect: normal affect Assessment and Plan Assessment & Plan (1) Depression with anxiety: Code(s): F41.8 - Other specified anxiety disorders Plan: Patient?now?has?a?therapist Metoprolol?still?helping?and?I?have?refilled?this Therapist?is?planning?on?referring?him?to?partial?program?and?I?encouraged?this (2) Hemorrhoids: Code(s): K64.9 - Unspecified hemorrhoids Plan: Hydrate?well Keep?stools?soft-sending?a?script?for?MiraLax Can?use?Proctosol?and?also?OTC?medications Avoid?strain If?still?not?improving?will?refer?to?general?surgery (3) Prostate pain: Code(s): N42.81 - Prostatodynia syndrome Plan: Prostate?pain?verses?rectal?pain. Checking?urine?studies?and?PSA Hydrate?well Keep?stools?soft (4) Family planning: Code(s): Z30.09 - Encounter for other general counseling and advice on contraception Plan: Patient?has?concerns?regarding?fertility.??Has?not?conceived?with?partner?despit e?not?using?protection?for?about?a?months. However,?patient?has?not?been?expressed?the?trying?to?have?a?child. Encouraged?him?to?have?a?discussion?with?his?partner?regarding intentions?as?he?says?they?have?had?discussions?regarding?surrogacy vs adoption. If?patient?and?partner?intention ally?trying?to?get??for?12?months?and?failing,?would?encourage?him?to?se [facility]?f[facility]?clinic?with?partner?at?distribution clerk?and?or?Urology. However,?patient?has?above?issues?which?may?worn?a?referral?to?urology?sooner. We?will?discuss?further?after?workup (5) Urinary hesitancy: Code(s): R39.11 - Hesitancy of micturition Plan: Urinary?hesitancy?and?also?the?above?prostate?versus?proctalgia Checking?urine?studies?and?blood?work?as?above Orders: Orders UA and rflx microscopic Today R39.11 - Hesitancy of micturition, Z00.00 - Encounter for general adult medical examination without abnormal findings Urine Culture Today R39.11 - Hesitancy of micturition Basic Metabolic Panel Today R39.11 - Hesitancy of micturition, Z00.00 - Enc ounter for general adult medical examination without abnormal findings CT NG by PCR Today N42.81 - Prostatodynia syndrome, R39.11 - Hesitancy of micturition, Z11.3 - Encounter for screening for infections with a predominantly sexual mode of transmission Prostate Specific Antigen Scr Today R39.11 - Hesitancy of micturition Complete Blood Count Auto Diff Today R39.11 - Hesitancy of micturition, Z00.00 - Encounter for general adult medical examination without abnormal findings Medications: New hydrocortisone 2.5% (Proctosol HC) 1 appl SC BID-QID 4 days PRN 30 grams 0RF hemorrhoids K64.9 - Unspecified hemorrhoids polyethylene glycol 3350 (Miralax) 17 grams PO DAILY 14 days 14 ea 0RF K64.9 - Unspecified hemorrhoids Refilled metoprolol succinate ER 12.5 mg (1/2 x 25 mg) PO BID 90 days 90 tabs 0RF Coding Level of Care Code Est Pt Level 4 (02975) Diagnoses Depression with anxiety F41.8 Hemorrhoids K64.9 Prostate pain N42.81 Family planning Z30.09 Urinary hesitancy R39.11 Additional Codes PAULA-7 Assessment Billing - PAULA-7 Assessment Tool: PAULA-7 Assessment 66322 ([id number])
[2023-11-02 14:37] VITALS: BP 114/70; PULSE 90; RESP 16; TEMP 36.6; O2SAT 98; BMI 30.6
== END 2023-11-02 15:17 | disposition home or self-care (01) ==
PROVIDERS: PCP Family Medicine; Visit Provider Family Medicine
DX: K64.9 Unspecified hemorrhoids (principal); F41.8 Other specified anxiety disorders; N42.81 Prostatodynia syndrome; Z30.09 Encounter for other general counseling and advice on contraception; R39.11 Hesitancy of micturition
CPT/HCPCS: 99214

== ENCOUNTER 2023-11-02 15:07 | Outpatient (REF) | payer OTHER, SELFPAY | END 2023-11-02 15:08 | disposition home or self-care (01) | LOC: HO.LAB 15:07 | PROVIDERS: Visit Provider Family Medicine | DX: Z13.89 Encounter for screening for other disorder (principal) ==

== ENCOUNTER 2023-11-02 15:11 | Outpatient (REF) | payer OTHER, SELFPAY ==
[2023-11-02 17:39] LABS: MANUAL DIFF FLAG NO
[2023-11-02 17:47] LABS: Appearance Urine Clear; Color Urine Yellow; Glucose Urine UA Negative (Negative); Leukocyte Esterase Urine Negative (Negative); Nitrite Urine Negative (Negative); UMIC TRIGGER UA YES; Urine Blood Trace (Negative); Urine Ketones Negative (Negative); Urine Protein Negative (Neg-Trace)
[2023-11-02 17:50] LABS: Bacteria Urine None Seen (None Seen); Hyaline Casts Urine 0-2 /LPF (0-2); RBC Urine 0-2 /HPF (0-2); Squamous Epithelial Cell Urine 0-2 /HPF (0-2); WBC Urine 0-5 /HPF (0-5)
[2023-11-02 17:51] LABS: Basophils Absolute Auto 0.1 X10*3/uL (0.0-0.2); Basophils Percent Auto 0.5 % (0-2); Eosinophils Absolute Auto 0.1 X10*3/uL (0.0-0.4); Hematocrit 43.6 % (42.0-52.0); Hemoglobin 14.3 g/dl (14.0-18.0); Imm Gran Abs Auto 0.02 X10*3/uL (0.00-0.03); Imm Gran Pct Auto 0.2 % (0.0-0.4); Lymphocytes Absolute Auto 2.2 X10*3/uL (1.2-4.9); Lymphocytes Percent Auto 24.3 % (20-40); Mean Corpuscular HGB Conc 32.8 g/dl (31.0-36.0); Mean Corpuscular Hemoglobin 26.8 pg (27.0-33.0); Mean Corpuscular Volume 81.6 fL (80.0-98.0); Mean Platelet Volume 9.6 fL (9.4-12.4); Monocytes Absolute Auto 0.8 X10*3/uL (0.1-1.2); Monocytes Percent Auto 8.7 % (2-11); Neutrophils Percent Auto 65.3 % (45-73); Platelet Count 290 X10*3/uL (160-400); Red Blood Count 5.34 X10*6/uL (4.60-5.80); Red Cell Distribution Width 13.5 % (11.0-16.0); White Blood Count 9.2 X10*3/uL (4.8-10.8)
[2023-11-02 18:18] LABS: Anion Gap 13 (12-20); Blood Urea Nitrogen 16 mg/dL (9-16); Calcium 9.9 mg/dL (8.4-10.2); Carbon Dioxide 26 mmol/L (22-29); Chloride 104 mmol/L (96-108); Estimated Glomerular Filt Rate > 60; Glucose Random 75 mg/dL (60-115); Potassium 4.3 mmol/L (3.3-5.1); Sodium 139 mmol/L (135-145)
== END 2023-11-02 15:12 | disposition home or self-care (01) ==
LOC: HO.WFDLDS 15:11
PROVIDERS: Visit Provider Family Medicine
DX: Z00.00 Encounter for general adult medical examination without abnormal findings (principal); Z12.5 Encounter for screening for malignant neoplasm of prostate; R39.11 Hesitancy of micturition
CPT/HCPCS: 36415; 80048; 81001; 84153; 85025; 87086

== ENCOUNTER 2023-11-15 10:41 | Outpatient (AMB) | payer OTHER, SELFPAY ==
[2023-11-15 14:38] VITALS: PULSE 110; O2SAT 98; BMI 30.3
--- NOTE | 2023-11-15 14:38 | A.OFFVIS_ITS ---
Vital Signs 11/15/23 14:38 Height 5 ft 4 in Weight 176 lb 5.917 oz BMI 30.3 Pulse 110 H Pulse Source Pulse Oximeter Pulse Oximetry (%) 98 Oxygen Delivery Method Room Air Intake Visit Reasons: Dupixent Teaching Allergies ibuprofen [IBUPROFEN] Allergy (Intermediate, Verified 11/15/23 14:39) ABD PAIN AND REFLUX aspirin [ASA] Allergy (Verified 11/15/23 14:39) Swelling avocado Allergy (Verified 11/15/23 14:39) Swelling banana Allergy (Verified 11/15/23 14:39) Anaphylaxis gluten Allergy (Verified 11/15/23 14:39) Abdominal Pain house dust Allergy (Verified 11/15/23 14:39) Unknown lactose Allergy (Verified 11/15/23 14:39) Abdominal Pain venlafaxine Adverse Reaction (Mild, Verified 11/15/23 14:39) vomiting, disorintation seasonal Allergy (Unknown, Uncoded 11/15/23 14:39) unknown Medication List - Last Reconciled 11/15/23 by Meredith Ledesma LPN albuterol sulfate 90 mcg/actuation (Ventolin HFA) 2 puffs inhalation Q4-6H PRN 30 days budesonide-formoterol 160-4.5 mcg/actuation (Symbicort) 2 puffs inhalation BID dupilumab (Dupixent) 300 mg (2 mL) subcut Q2W hydrocortisone 2.5% (Proctosol HC) 1 appl [place] BID-QID PRN 4 days loratadine 1 tab PO DAILY metoprolol succinate ER 12.5 mg (1/2 x 25 mg) PO BID 90 days nicotine (Nicoderm CQ) 1 patch transdermal DAILY 28 days nicotine 10 mg inhalation QID PRN polyethylene glycol 3350 (Miralax) 17 grams PO DAILY 14 days triamcinolone acetonide 0.1% topical HPI HPI Dupixent Teaching: Details: Jaya is here for another Dupixent teach as he is having anxiety about self injecting. Jaya was re-educated on hand washing, injection preparation, administration, and disposal.? Jaya was able to properly return demonstrate the correct technique. He does not have any questions at this time. Medication Dupixent 300mg/2mL pre-filled pen (patient?s own meds) maintenance dose of 300mg given by himself in 1 SQ injection to his R thigh lot# [id number] expires 05/18/2025. Patient aware his next injection is in 14 days. Nurse visit only. ? PFSH Medical History Acid reflux Anxiety Depression Asthma Epidermal inclusion cyst Constipation Surgical History Hx of colonoscopy H/O endoscopy Family History Mother Anxiety Depression Maternal Grandfather Substance abuse Maternal Grandmother Anxiety Depression Father Arthritis Social History Household Members: Family Housing: House Alcohol intake: current Alcohol intake frequency: holidays/special occasions only Alcohol type: hard liquor Patient Tobacco Use Status: Current everyday Tobacco user Tobacco use type: Cigarette Cigarettes Per Day: 5 e-Cigarette/Vaping Use: Currently Using Substance Use Type: Marijuana service: No Current occupational status: employed 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
== END 2023-11-15 10:57 | disposition home or self-care (01) ==
PROVIDERS: PCP Family Medicine; Visit Provider Internal Medicine Pulmonary Disease
DX: J45.909 Unspecified asthma, uncomplicated (principal)

== ENCOUNTER → 2023-11-15 10:41 | Outpatient (BNVA) | payer OTHER, SELFPAY | PROVIDERS: PCP Family Medicine; Visit Provider Internal Medicine Pulmonary Disease | DX: J45.909 Unspecified asthma, uncomplicated (principal) | CPT/HCPCS: 99211 ==

== ENCOUNTER 2023-11-29 13:41 | Outpatient (AMB) | payer OTHER, SELFPAY ==
[2023-11-29 15:06] VITALS: BP 126/80; PULSE 116; O2SAT 98
--- NOTE | 2023-11-29 15:06 | A.OFFVIS_ITS ---
Vital Signs 11/29/23 15:06 Weight 176 lb 5.917 oz BP 126/80 Blood Pressure Location Rt brachial Position Sitting Pulse 116 H Pulse Source Pulse Oximeter Pulse Oximetry (%) 98 Oxygen Delivery Method Room Air Intake Visit Reasons: Dupixent Teaching Allergies ibuprofen [IBUPROFEN] Allergy (Intermediate, Verified 11/29/23 15:06) ABD PAIN AND REFLUX aspirin [ASA] Allergy (Verified 11/29/23 15:06) Swelling avocado Allergy (Verified 11/29/23 15:06) Swelling banana Allergy (Verified 11/29/23 15:06) Anaphylaxis gluten Allergy (Verified 11/29/23 15:06) Abdominal Pain house dust Allergy (Verified 11/29/23 15:06) Unknown lactose Allergy (Verified 11/29/23 15:06) Abdominal Pain venlafaxine Adverse Reaction (Mild, Verified 11/29/23 15:06) vomiting, disorintation seasonal Allergy (Unknown, Uncoded 11/29/23 15:06) unknown Medication List - Last Reconciled 11/29/23 by Meredith Ledesma LPN albuterol sulfate 90 mcg/actuation (Ventolin HFA) 2 puffs inhalation Q4-6H PRN 30 days budesonide-formoterol 160-4.5 mcg/actuation (Symbicort) 2 puffs inhalation BID dupilumab (Dupixent) 300 mg (2 mL) subcut Q2W hydrocortisone 2.5% (Proctosol HC) 1 appl [place] BID-QID PRN 4 days loratadine 1 tab PO DAILY metoprolol succinate ER 12.5 mg (1/2 x 25 mg) PO BID 90 days nicotine (Nicoderm CQ) 1 patch transdermal DAILY 28 days nicotine 10 mg inhalation QID PRN polyethylene glycol 3350 (Miralax) 17 grams PO DAILY 14 days triamcinolone acetonide 0.1% topical HPI HPI Dupixent Teaching: Details: Jaya is here for another Dupixent teach as he is having anxiety about self injecting. Jaya was re-educated on hand washing, injection preparation, administration, and disposal.? Jaya was able to properly return demonstrate the correct technique. He does not have any questions at this time. Medication Dupixent 300mg/2mL pre-filled pen (patient?s own meds) maintenance dose of 300mg given by himself in 1 SQ injection to his R thigh lot# [id number] expires 06/18/2025. Patient aware his next injection is in 14 days. He will schedule a follow up with Dr. Mercado to discuss Dupixent injections. Nurse visit only. ? PFSH Medical History Acid reflux Anxiety Depression Asthma Epidermal inclusion cyst Constipation Surgical History Hx of colonoscopy H/O endoscopy Family History Mother Anxiety Depression Maternal Grandfather Substance abuse Maternal Grandmother Anxiety Depression Father Arthritis Social History Household Members: Family Housing: House Alcohol intake: current Alcohol intake frequency: holidays/special occasions only Alcohol type: hard liquor Patient Tobacco Use Status: Current everyday Tobacco user Tobacco use type: Cigarette Cigarettes Per Day: 5 e-Cigarette/Vaping Use: Currently Using Substance Use Type: Marijuana service: No Current occupational status: employed 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
== END 2023-11-29 14:03 | disposition home or self-care (01) ==
PROVIDERS: PCP Family Medicine; Visit Provider Internal Medicine Pulmonary Disease
DX: J45.909 Unspecified asthma, uncomplicated (principal)

== ENCOUNTER → 2023-11-29 13:41 | Outpatient (BNVA) | payer OTHER, SELFPAY | PROVIDERS: PCP Family Medicine; Visit Provider Internal Medicine Pulmonary Disease | DX: J45.909 Unspecified asthma, uncomplicated (principal); Z71.89 Other specified counseling | CPT/HCPCS: 99211 ==

== ENCOUNTER 2023-12-13 14:32 | Outpatient (AMB) | payer OTHER, SELFPAY ==
--- NOTE | 2023-12-13 14:34 | MHC.OFFVIS ---
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 Specialist Required: No Accompanied by: Self / Same As Patient Allergies ibuprofen [IBUPROFEN] Allergy (Intermediate, Verified 11/29/23 15:06) ABD PAIN AND REFLUX aspirin [ASA] Allergy (Verified 11/29/23 15:06) Swelling avocado Allergy (Verified 11/29/23 15:06) Swelling banana Allergy (Verified 11/29/23 15:06) Anaphylaxis gluten Allergy (Verified 11/29/23 15:06) Abdominal Pain house dust Allergy (Verified 11/29/23 15:06) Unknown lactose Allergy (Verified 11/29/23 15:06) Abdominal Pain venlafaxine Adverse Reaction (Mild, Verified 11/29/23 15:06) vomiting, disorintation seasonal Allergy (Unknown, Uncoded 11/29/23 15:06) unknown Medication List - Last Reconciled 12/13/23 by Miguel Angel Maher MD albuterol sulfate 90 mcg/actuation (Ventolin HFA) 2 puffs inhalation Q4-6H PRN 30 days budesonide-formoterol 160-4.5 mcg/actuation (Symbicort) 2 puffs inhalation BID dupilumab (Dupixent) 300 mg (2 mL) subcut Q2W hydrocortisone 2.5% (Proctosol HC) 1 appl MI BID-QID PRN 4 days loratadine 1 tab PO DAILY metoprolol succinate ER 12.5 mg (1/2 x 25 mg) PO BID 90 days nicotine (Nicoderm CQ) 1 patch transdermal DAILY 28 days nicotine 10 mg inhalation QID PRN polyethylene glycol 3350 (Miralax) 17 grams PO DAILY 14 days triamcinolone acetonide 0.1% topical HPI Comments Details: Jaya is here for consultation regarding palpitations. He states that for the last year or so he has been noticing a lot of palpitations. He does have a lot of baseline anxiety. However, whenever he gets palpitations, his anxiety gets even worse. He has asthma on inhalers. He is stating that he is using the albuterol about twice a day or so. Suspect he is having lot of sinus tachycardia episodes. In the past, he has had dizziness episode when he was feeling the palpitations and at the same time was also extremely anxious. Not clear if there was any panic attack type episode. EKG also shows an early repolarization type picture but it has been this way in the past as well. Otherwise, no known cardiac issues. No family history of anything inherited and specifically no history of any sudden cardiac . Patient has been empirically put on beta-blockers for anxiety episodes. [facility] Medical History Acid reflux Anxiety Depression Asthma Epidermal inclusion cyst Constipation Surgical History Hx of colonoscopy H/O endoscopy Family History Mother Anxiety Depression Maternal Grandfather Substance abuse Maternal Grandmother Anxiety Depression Father Arthritis Social History Household Members: Family Housing: House Alcohol intake: current Alcohol intake frequency: holidays/special occasions only Alcohol type: hard liquor Patient Tobacco Use Status: Current everyday Tobacco user Tobacco use type: Cigarette Cigarettes Per Day: 5 e-Cigarette/Vaping Use: Currently Using Substance Use Type: Marijuana service: No Current occupational status: employed 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 Sexual orientation: Did not discuss Cognitive needs: No Hearing needs: No Vision needs: No Review of Systems Const Denies chills, Denies daytime sleepiness, Denies fatigue, Denies fever(s), Denies poor appetite, Denies snoring, Denies stops breathing during sleep, Denies weakness, Denies weight gain and Denies weight loss Eyes Denies loss of vision ENT Denies dizziness and Denies hearing loss Card Denies chest pain, Denies irregular heart rhythm, Denies claudication, Denies leg edema, Denies lightheadedness, Denies palpitations, Denies dyspnea on exertion and Denies orthopnea Resp Denies cough, Denies excessive phlegm production, Denies dyspnea on exertion, Denies snoring and Denies wheezing GI Denies abdominal pain, Denies hematochezia, Denies change in bowel habits, Denies nausea and Denies vomiting Denies dysuria and Denies urinary frequency Musc Denies arthralgias, Denies muscle weakness, Denies numbness and Denies other Skin/Breast Denies nail changes and Denies rash Neuro Denies Abnormal speech present, Denies dizziness, Denies loss of vision, Denies memory loss, Denies numbness and Denies weakness Psych Denies depression and Denies memory loss Endo Denies fatigue and Denies palpitations Chong/Lymph Denies easy bruising Aller/Immun Denies wheezing Physical Exam Vital Signs: Last Vital Signs Pulse 81 12/13/23 14:35 BP 114/52 L 12/13/23 14:35 BMI result Body Mass Index 31.1 Const General: comfortable and no acute distress Orientation/consciousness: patient oriented x3 HEENT Other: Unremarkable Head: Yes normal to inspection Neck Neck: Yes normal visual inspection Chest Chest palpation & inspection: normal inspection of the chest Resp Auscultation: clear to auscultation bilaterally Cardio Palpation: normal PMI Heart sounds: S1 normal heart sound present, S2 normal heart sound present, no gallops, no murmurs and no rubs GI Palpation (GI): Soft to palpation Back/Spine/Pelvis Other: unremarkable Skin General skin exam: no rashes or lesions noted Neuro General: patient oriented x3 Speech: No Abnormal speech present Extrem General: Yes normal to inspection Psych Mental Status: mental status grossly normal Office Procedures EKG Details: EKG with underlying sinus rhythm at 81/Min; sinus arrhythmia and early repolarization. Similar to prior EKG from 2021. [id number]-[id number], Complete Assessment & Plan Assessment & Plan (1) Heart palpitations: Code(s): R00.2 - Palpitations Category: Medical (2) Abnormal EKG: Code(s): R94.31 - Abnormal electrocardiogram [ECG] [EKG] Category: Medical Plan Possible sinus tachycardia in response to inhalers as well as anxiety. Will get an echocardiogram and Holter monitor for further evaluation. Advised him to hold off on beta-blockers at least during the time he has the Holter on. Follow-up in a few weeks' time. Orders: Orders ECG 7 day holter monitor Today R00.2 - Palpitations CA echo transthoracic complete Today R00.2 - Palpitations, R94.31 - Abnormal electrocardiogram [ECG] [EKG] Coding Level of Care Code New Pt Level 3 (80907) Diagnoses Heart palpitations R00.2 Abnormal EKG R94.31 CPT Codes EKG - CPT: 55593-[id number], Complete ([id number])
[2023-12-13 14:35] VITALS: BP 114/52; PULSE 81; BMI 31.1
== END 2023-12-13 15:13 | disposition home or self-care (01) ==
PROVIDERS: PCP Family Medicine; Visit Provider Internal Medicine
DX: R00.2 Palpitations (principal); R94.31 Abnormal electrocardiogram [ECG] [EKG]
CPT/HCPCS: 93010; 99203

== ENCOUNTER → 2023-12-13 14:32 | Outpatient (BNVA) | payer OTHER, SELFPAY | PROVIDERS: PCP Family Medicine; Visit Provider Internal Medicine | DX: J45.909 Unspecified asthma, uncomplicated (principal); Z91.09 Other allergy status, other than to drugs and biological substances; R00.2 Palpitations; R94.31 Abnormal electrocardiogram [ECG] [EKG] | CPT/HCPCS: 93005; 99202; 99212 ==

== ENCOUNTER 2023-12-13 15:07 | Outpatient (AMB) | payer OTHER, SELFPAY ==
[2023-12-13 15:10] VITALS: BP 111/62; PULSE 110; O2SAT 96; BMI 31.2
--- NOTE | 2023-12-13 15:10 | MHC.OFFVIS ---
Vital Signs 12/13/23 15:10 Height 5 ft 4 in Weight 181 lb 14.102 oz BMI 31.2 BP 111/62 Blood Pressure Location Lt brachial Position Sitting Pulse 110 H Pulse Source Doppler Pulse Oximetry (%) 96 Oxygen Delivery Method Room Air Intake Visit Reasons: Asthma/Dupixent Allergies ibuprofen [IBUPROFEN] Allergy (Intermediate, Verified 11/29/23 15:06) ABD PAIN AND REFLUX aspirin [ASA] Allergy (Verified 11/29/23 15:06) Swelling avocado Allergy (Verified 11/29/23 15:06) Swelling banana Allergy (Verified 11/29/23 15:06) Anaphylaxis gluten Allergy (Verified 11/29/23 15:06) Abdominal Pain house dust Allergy (Verified 11/29/23 15:06) Unknown lactose Allergy (Verified 11/29/23 15:06) Abdominal Pain venlafaxine Adverse Reaction (Mild, Verified 11/29/23 15:06) vomiting, disorintation seasonal Allergy (Unknown, Uncoded 11/29/23 15:06) unknown HPI HPI Asthma/Dupixent: Details: 23-year-old gentleman, current active smoker and also uses vapes with underlying history of asthma since childhood previously controlled on Symbicort that he has been using once a day and albuterol MDI referred for pulmonary evaluation. Patient states that over the last year his asthma control has been getting much worse and he has been requiring to use albuterol MDI multiple times a day. He also complains of environmental allergies. Patient denies having recent pulmonary function testing or allergy testing. Patient denies family history of lung disease. Patient had also complain of multiple episodes of skipped beats and is interested in seeing Cardiology. Patient does have a dog as a pet. He is employed without exposure to industrial dusts. After the last office visit patient was started on injections and had at least for injection so far with suboptimal response. COUNTS INCLUDE 234 BEDS AT THE [facility] Medical History Acid reflux Anxiety Depression Asthma Epidermal inclusion cyst Constipation Surgical History Hx of colonoscopy H/O endoscopy Family History Mother Anxiety Depression Maternal Grandfather Substance abuse Maternal Grandmother Anxiety Depression Father Arthritis Social History Household Members: Family Housing: House Alcohol intake: current Alcohol intake frequency: holidays/special occasions only Alcohol type: hard liquor Patient Tobacco Use Status: Current everyday Tobacco user Tobacco use type: Cigarette Cigarettes Per Day: 5 e-Cigarette/Vaping Use: Currently Using Substance Use Type: Marijuana service: No Current occupational status: employed 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 Sexual orientation: Did not discuss Cognitive needs: No Hearing needs: No Vision needs: No Review of Systems Const Denies daytime sleepiness, Denies excessive sweating, Denies fatigue, Denies fever(s), Denies lethargy, Denies malaise, Denies night sweats, Denies snoring and Denies weight loss Eyes Denies blurry vision and Denies itchy eyes ENT Denies nasal congestion, Denies post nasal drip, Denies sinus pain, Denies sinus pressure and Denies other ( Thrush) Card Denies chest pain, Denies pedal edema, Denies dyspnea, Denies orthopnea and Denies paroxysmal nocturnal dyspnea Resp Denies cough, Denies hemoptysis, Denies excessive phlegm production, Denies dyspnea, Denies snoring and Denies wheezing GI Denies abdominal pain and Denies heartburn Musc Denies myalgias, Denies arthralgias and Denies joint swelling Skin/Breast Denies rash Neuro Denies memory loss and Denies seizure-like activity Psych Denies abnormal sleep pattern, Denies anxiety and Denies memory loss Endo Denies excessive sweating, Denies fatigue and Denies heat intolerance Chong/Lymph Denies easy bruising Aller/Immun Denies itchy eyes, Denies seasonal rhinorrhea and Denies wheezing Physical Exam Vital Signs: Last Vital Signs Pulse 110 H 12/13/23 15:10 BP 111/62 12/13/23 15:10 Pulse Ox 96 12/13/23 15:10 Oxygen Delivery Method Room Air 12/13/23 15:10 BMI result Body Mass Index 31.2 Const General: no acute distress and alert Nutritional Appearance: not obese Orientation/consciousness: Other orientation findings ( oriented) HEENT Head: Yes atraumatic Eyes General: appearance normal, both eyes and all related structures Sclerae: sclerae normal EOM: EOMs intact bilaterally Neck Neck: Yes supple Lymphatic: no lymphadenopathy noted Resp Effort & Inspection: normal respiratory effort and no use of accessory muscles Auscultation: clear to auscultation bilaterally Cardio Rate: regular rate Rhythm: regular rhythm Heart sounds: no gallops, no murmurs and no rubs Skin General skin exam: other ( warm) Extrem General: No clubbing, No cyanosis and No edema Assessment & Plan Assessment & Plan (1) Asthma: Code(s): J45.909 - Unspecified asthma, uncomplicated Category: Medical Plan: Suboptimal response to Dupixent, Symbicort, and albuterol MDI. Will request switching to Xolair. (2) Environmental allergies: Code(s): Z91.09 - Other allergy status, other than to drugs and biological substances Category: Medical Plan: Suboptimal response to Dupixent, expect to improve on Xolair. Continue loratadine. Coding Level of Care Code Est Pt Level 4 (19483) Diagnoses Asthma J45.909 Environmental allergies Z91.09
== END 2023-12-13 15:27 | disposition home or self-care (01) ==
PROVIDERS: PCP Family Medicine; Visit Provider Internal Medicine Pulmonary Disease
DX: J45.909 Unspecified asthma, uncomplicated (principal); Z91.09 Other allergy status, other than to drugs and biological substances
CPT/HCPCS: 99214

== ENCOUNTER 2024-01-10 10:33 | Outpatient (AMB) | payer OTHER, SELFPAY ==
--- NOTE | 2024-01-10 10:38 | MHC.PC.OV ---
Vital Signs 01/10/24 10:44 Height 5 ft 4 in Weight 179 lb 2 oz BMI 30.7 BP 134/57 L Blood Pressure Location Lt brachial Position Sitting Respiration 16 Pulse 94 Pulse Source Pulse Oximeter Temp 99.5 F Temp Source Temporal Artery Scan Pulse Oximetry (%) 97 Oxygen Delivery Method Room Air Intake Visit Reasons: f/u anxiety/depression, prostate pain Intake Note: f/u anxiety and depression prostate pain Allergies ibuprofen [IBUPROFEN] Allergy (Intermediate, Verified 01/10/24 10:42) ABD PAIN AND REFLUX aspirin [ASA] Allergy (Verified 01/10/24 10:42) Swelling avocado Allergy (Verified 01/10/24 10:42) Swelling banana Allergy (Verified 01/10/24 10:42) Anaphylaxis gluten Allergy (Verified 01/10/24 10:42) Abdominal Pain house dust Allergy (Verified 01/10/24 10:42) Unknown lactose Allergy (Verified 01/10/24 10:42) Abdominal Pain venlafaxine Adverse Reaction (Mild, Verified 01/10/24 10:42) vomiting, disorintation seasonal Allergy (Unknown, Uncoded 11/29/23 15:06) unknown Medication List - Last Reconciled 01/10/24 by Eduardo Marquez MD albuterol sulfate 90 mcg/actuation (Ventolin HFA) 2 puffs inhalation Q4-6H PRN 30 days ashwagandha extract mg PO budesonide-formoterol 160-4.5 mcg/actuation (Symbicort) 2 puffs inhalation BID hydrocortisone 2.5% (Proctosol HC) 1 appl DC BID-QID PRN 4 days loratadine 1 tab PO DAILY metoprolol succinate ER 12.5 mg (1/2 x 25 mg) PO BID 90 days nicotine (Nicoderm CQ) 1 patch transdermal DAILY 28 days nicotine 10 mg inhalation QID PRN polyethylene glycol 3350 (Miralax) 17 grams PO DAILY 14 days triamcinolone acetonide 0.1% topical Tobacco use date assessed: 08/05/23 Dental Screening Dental Screen Date: 05/09/23 HPI f/u anxiety/depression, prostate pain HPI Details 23 y/o male presents to f/u anxiety/depression, prostate pain. PHQ-9 20, PAULA-7 19 today. Notes he has not had much time for himself which has been causing him depression. He does have a therapist now. Notes ongoing difficulty sleeping. Has not been getting much exercise as he has been busy. [facility] Medical History Acid reflux Anxiety Depression Asthma Epidermal inclusion cyst Constipation Surgical History Hx of colonoscopy H/O endoscopy Family History Mother Anxiety Depression Maternal Grandfather Substance abuse Maternal Grandmother Anxiety Depression Father Arthritis Social History Household Members: Family Housing: House Alcohol intake: current Alcohol intake frequency: holidays/special occasions only Alcohol type: hard liquor Patient Tobacco Use Status: Current everyday Tobacco user Tobacco use type: Cigarette Cigarettes Per Day: 5 e-Cigarette/Vaping Use: Currently Using Substance Use Type: Marijuana service: No Current occupational status: employed 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 1. Little interest or pleasure in doing things: nearly every day 2. Feeling down, depressed, or hopeless: more than half the days 3. Trouble falling or staying asleep, or sleeping too much: nearly every day 4. Feeling tired or having little energy: nearly every day 5. Poor appetite or overeating: more than half the days 6. Feeling bad about yourself - or that you are a failure or have let yourself or your family down: nearly every day 7. Trouble concentrating on things, such as reading the newspaper or watching television: nearly every day 8. Moving or speaking so slowly that other people could have noticed. Or the opposite - being so fidgety or restless that you have been moving around a lot more than usual: several days 9. Thoughts that you would be better off or of hurting yourself in some way: not at all Total score: 20 Depression Screening Interpretation: Positive Depression Screening Done: Yes 61619 - PHQ-9 Billing: Yes Source: Developed by Drs. Ricky Jennings, Laura Giron, Khoa Steiner and colleagues, with an educational claude from [employer]. Thrive Questionnaire Date Thrive assessed: 01/10/24 I am a: Patient What is your living situation today?: I have a place to live, but I am worried about losing it in the future Within the past 12 months, did the food you bought not last and you didn't have the money to get more?: Never true Within the past 12 months, did you worry whether your food would run out before you got money to buy more?: Never true Do you have trouble paying for medicines?: No Do you have trouble getting transportation to medical appointments?: No Do you have trouble paying your heating and electricity bill?: I choose not to answer this question Do you have trouble taking care of your child, family member or friend?: Yes Do you have trouble with day-to-day activities such as bathing, preparing meals, shopping, managing finances, etc.?: Yes Are you currently unemployed and looking for a job?: No Are you interested in more education?: Yes Please select the resources that you would like help with: None Currently or been in a relationship where the following occur: I choose not to answer THRIVE Score: 1 AUDIT C Alcohol Use Questionnaire (AUDIT-C) 1. How often do you have a drink containing alcohol?: 2-4 times a month 2. How many drinks containing alcohol do you have on a typical day when you are drinking?: 3 or 4 3. How often do you have six or more drinks on one occasion?: Less than monthly Total Score: 4 PAULA-7 AMB Questionnaire PAULA-7 Date PAULA - 7 assessed: 01/10/24 Feeling nervous, anxious, or on edge: 3 = Nearly every day Not being able to stop or control worryin = Nearly every day Worrying too much about different things: 3 = Nearly every day Trouble relaxin = Nearly every day Being so restless that it is hard to sit still: 1 = Several days Becoming easily annoyed or irritable: 3 = Nearly every day Feeling afraid as if something awful might happen: 3 = Nearly every day Total PAULA-7 score (0-4 normal; 5-9 mild; 10-14 moderate; 15-21 severe): 19 Source: Developed by Drs. Ricky Jennings, Laura Giron, Khoa Steiner and colleagues, with an educational claude from [employer]. PAULA-7 Assessment Billing PAULA-7 Assessment Tool: PAULA-7 Assessment 35440 Review of Systems Const Reports fatigue, Denies headache(s) and Denies weakness ENT Denies dizziness and Denies headache(s) Card Denies dyspnea Resp Denies cough, Denies dyspnea, Denies wheezing and Denies other (shortness of breath) Musc Denies numbness and Denies tingling Neuro Denies dizziness, Denies headache(s), Denies numbness, Denies tingling and Denies weakness Psych Reports anxiety and Reports depression Endo Reports fatigue Aller/Immun Denies wheezing Physical exam (Primary Care) Vital Signs: Last Vital Signs Temp 99.5 F 01/10/24 10:44 Pulse 94 01/10/24 10:44 Resp 16 01/10/24 10:44 BP 134/57 L 01/10/24 10:44 Pulse Ox 97 01/10/24 10:44 Oxygen Delivery Method Room Air 01/10/24 10:44 BMI result Body Mass Index 30.7 Tobacco/Smoking Status: Tobacco use Status Tobacco use date assessed 08/05/23 01/10/24 10:47 Patient Tobacco Use Status Current everyday Tobacco 01/10/24 10:47 Tobacco use type Cigarette 01/10/24 10:47 e-Cigarette/Vaping Use Currently Using 01/10/24 10:47 PHQ-9: PHQ-9 Score PHQ-9: Total score 20 01/10/24 10:47 Depression Screening Interpretation: Positive Thrive Assessment: Date of Thrive Assessment Date Thrive assessed 01/10/24 01/10/24 10:47 Currently or been in a relationship where the following occur: I choose not to answer Const General: well developed; No acute distress Nutritional Appearance: well nourished Orientation/consciousness: patient oriented x3 HENMT Head: Yes normocephalic and Yes atraumatic Eyes General: appearance normal, both eyes and all related structures Pupils: Equal, round and reactive pupils present EOM: EOMs intact bilaterally Resp Effort & Inspection: normal respiratory effort Neuro General: patient oriented x3 and gait normal Cranial nerves: Yes Equal, round and reactive pupils present Psych Affect: normal affect Coding Level of Care Code Est Pt Level 3 (01171) Diagnoses Depression with anxiety F41.8 Difficulty sleeping G47.9 Hypersomnolence G47.10 Rectal pain K62.89 Additional Codes PAULA-7 Assessment Billing - PAULA-7 Assessment Tool: PAULA-7 Assessment 32061 ([id number]) Assessment & Plan Assessment & Plan (1) Depression with anxiety: Code(s): F41.8 - Other specified anxiety disorders Category: Medical Plan: Now?has?therapist?and?he?is?awaiting?referral?to?Psychiatry. Encouraged?him?to?continue?following?up?with?therapy?and?encouraged?psychiatry?referral?as?above (2) Difficulty sleeping: Code(s): G47.9 - Sleep disorder, unspecified Category: Medical Plan: Likely?multifactorial?but?patient?also?notes?hypersomnolence Referred?to?Sleep?Medicine?to?rule?out?sleep?apnea (3) Hypersomnolence: Code(s): G47.10 - Hypersomnia, unspecified Category: Medical Plan: As?above (4) Rectal pain: Code(s): K62.89 - Other specified diseases of anus and rectum Category: Medical Plan: History?of?IBS?and?patient?describes?rectal?pain. Referred?to?GI Also?encouraged?increased?hydration Plan Orders: Referrals Sleep Medicine Referral G47.10 - Hypersomnia, unspecified Gastroenterology Referral K58.9 - Irritable bowel syndrome, unspecified, K62.89 - Other specified diseases of anus and rectum
[2024-01-10 10:44] VITALS: BP 134/57; PULSE 94; RESP 16; TEMP 37.5; O2SAT 97; BMI 30.7
== END 2024-01-10 11:22 | disposition home or self-care (01) ==
PROVIDERS: PCP Family Medicine; Visit Provider Family Medicine
DX: G47.9 Sleep disorder, unspecified (principal); F41.8 Other specified anxiety disorders; G47.10 Hypersomnia, unspecified; K62.89 Other specified diseases of anus and rectum

== ENCOUNTER → 2024-01-10 10:33 | Outpatient (BNVA) | payer OTHER, SELFPAY | PROVIDERS: PCP Family Medicine; Visit Provider Family Medicine | DX: F41.8 Other specified anxiety disorders (principal); G47.10 Hypersomnia, unspecified; K62.89 Other specified diseases of anus and rectum | CPT/HCPCS: 96127; 99212 ==

== ENCOUNTER 2024-01-12 11:45 | Outpatient (RCR) | payer OTHER, SELFPAY ==
[2023-12-29 10:42] VITALS: BP 131/79; PULSE 101; RESP 16; TEMP 37.2; O2SAT 98
[2023-12-29] MEDS: Omalizumab 300 MG, Omalizumab 75 MG 375 MG SUBCUT (10:45)
[2024-01-12 11:55] VITALS: BP 123/76; PULSE 82; RESP 18; TEMP 36.6; O2SAT 98
[2024-01-12] MEDS: Omalizumab 300 MG, Omalizumab 75 MG 375 MG SUBCUT (11:59)
== END 2024-01-12 14:05 | disposition home or self-care (01) ==
LOC: HO.INF 11:45
PROVIDERS: Visit Provider Internal Medicine Pulmonary Disease
DX: J45.50 Severe persistent asthma, uncomplicated (principal)
CPT/HCPCS: 96372; J2357

== ENCOUNTER 2024-04-10 08:16 | Outpatient (AMB) | payer OTHER, SELFPAY ==
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
[2024-04-10 08:37] VITALS: BP 136/71; PULSE 89; RESP 13; TEMP 35.7; O2SAT 98; BMI 32.3
== END 2024-04-10 09:37 | disposition home or self-care (01) ==
PROVIDERS: PCP Family Medicine; Visit Provider Family Medicine
DX: G47.30 Sleep apnea, unspecified (principal); F41.8 Other specified anxiety disorders; F10.90 Alcohol use, unspecified, uncomplicated

== ENCOUNTER → 2024-04-10 08:16 | Outpatient (BNVA) | payer OTHER, SELFPAY | PROVIDERS: PCP Family Medicine; Visit Provider Family Medicine | DX: F41.9 Anxiety disorder, unspecified (principal); G47.30 Sleep apnea, unspecified; F10.90 Alcohol use, unspecified, uncomplicated | CPT/HCPCS: 96127; 99212 ==

== ENCOUNTER 2024-04-20 10:19 | Emergency (ER) | payer OTHER, SELFPAY ==
--- NOTE | ~2024-04-20 | CT_ITS ---
EXAMINATION: CT ABDOMEN AND PELVIS WITH CONTRAST CLINICAL INFORMATION: Abdominal cramping. BRBPR. COMPARISON: None available. TECHNIQUE: Multidetector volumetric images were obtained from the superior aspect of the liver through the pubic symphysis following administration 85 mL of Omnipaque 350 intravenous contrast. Sagittal and coronal reformatted images were obtained on the technologist's workstation. Oral contrast: No This CT examination was performed using dose optimization techniques as appropriate, variously including the following: *Automated exposure control *Adjustment of mA and/or kV according to patient size (this includes techniques or standardized protocols for targeted exams where dose is matched to indication/reason for exam; i.e. extremities or head) *Use of iterative reconstruction technique DLP: 541 mGy/cm. FINDINGS: LUNG BASES: The visualized lung bases are unremarkable. LIVER, GALLBLADDER, AND BILIARY TREE: The liver is normal in size, shape, and attenuation. No focal hepatic lesion or biliary ductal dilatation is present. The gallbladder is unremarkable with no evidence of radiopaque gallstones, gallbladder wall thickening, or obvious pericholecystic inflammatory changes. PANCREAS: Unremarkable. SPLEEN: Unremarkable. ADRENAL GLANDS: Unremarkable. KIDNEYS AND URETERS: The kidneys are normal in size, shape, and attenuation. No hydronephrosis, hydroureter, or calculi seen. No perinephric stranding. BLADDER: Unremarkable. GASTROINTESTINAL TRACT: The small and large bowel are unremarkable. The appendix is unremarkable. ABDOMINAL WALL: No significant hernia is appreciated. Incidental finding of a small 2.2 cm sebaceous cyst posterior midline abdomen at the level of iliac crest. LYMPH NODES: There are small shotty lymph nodes in the right ileocecal region with largest lymph node measuring 6 mm, nonspecific. VASCULAR: Unremarkable. PELVIC VISCERA: The prostate gland is mildly enlarged. No free air or free fluid seen. No abnormal pelvic or inguinal lymphadenopathy. OSSEOUS STRUCTURES: No aggressive lytic or sclerotic process seen CT/CT abdomen pelvis w IV con IMPRESSION: No acute intra-abdominal process seen. Small posterior abdomen sebaceous cyst Fleischner guidelines were followed. Electronically signed by: Cameron Pollock MD 04/20/2024 04:45 PM [facility]
[2024-04-20 10:51] VITALS: BP 130/79; PULSE 79; RESP 16; O2SAT 96; BMI 32.8
--- NOTE | 2024-04-20 10:58 | ED.ABDPAIN ---
HPI - Abdominal Pain General Chief Complaint: Abdominal Pain Stated Complaint: Rectal bleed abd pain Time Seen by Provider: 04/20/24 14:21 Related Data Home Medications ?Medication ?Instructions ?Recorded ?Confirmed budesonide-formoterol HFA 160 2 puff inhalation BID 01/14/22 01/10/24 mcg-4.5 mcg/actuation aerosol inhaler (Symbicort) triamcinolone acetonide 0.1 % topical 07/19/22 01/10/24 topical ointment ashwagandha extract 500 mg capsule mg PO 01/10/24 01/10/24 Previous Rx's ?Medication ?Instructions ?Recorded hydrocortisone 2.5 % topical cream 1 appl DC BID-QID PRN hemorrhoids 11/02/23 with perineal applicator 4 days #30 grams (Proctosol HC) polyethylene glycol 3350 17 gram 17 g PO DAILY 14 days #14 ea 11/02/23 oral powder packet (Miralax) albuterol sulfate 90 mcg/actuation 2 puff inhalation Q4-6H PRN 01/17/24 aerosol inhaler (Ventolin HFA) shortness of breath or wheezing 30 days #8.5 grams nicotine 10 mg inhalation cartridge 10 mg inhalation QID PRN smoking 01/18/24 cessation #168 ea metoprolol succinate 25 mg 12.5 mg (1/2 x 25 mg) PO BID 90 01/19/24 tablet,extended release 24 hr days #90 tabs loratadine 10 mg tablet 10 mg PO DAILY 90 days #90 tabs 01/20/24 bupropion HCl 75 mg tablet 75 mg PO BID 30 days #60 tabs 04/10/24 pramoxine 1 % topical foam 1 appl DC BID #15 grams 04/20/24 (Proctofoam) Allergies Allergy/AdvReac Type Severity Reaction Status Date / Time ibuprofen [IBUPROFEN] Allergy Intermediate ABD PAIN Verified 04/20/24 10:55 AND REFLUX aspirin [ASA] Allergy Swelling Verified 04/20/24 10:55 avocado Allergy Swelling Verified 04/20/24 10:55 banana Allergy Anaphylaxis Verified 04/20/24 10:55 gluten Allergy Abdominal Verified 04/20/24 10:55 Pain house dust Allergy Unknown Verified 04/20/24 10:55 lactose Allergy Abdominal Verified 04/20/24 10:55 Pain venlafaxine AdvReac Mild vomiting, Verified 04/20/24 10:55 disorintation seasonal Allergy Unknown unknown Uncoded 11/29/23 15:06 [facility] Past Medical History Medical History Acid reflux Anxiety Depression Asthma Epidermal inclusion cyst Constipation Surgical History Hx of colonoscopy H/O endoscopy Family History Family History Mother Anxiety Depression Maternal Grandfather Substance abuse Maternal Grandmother Anxiety Depression Father Arthritis Social History Social History Household Members: Family Housing: House Alcohol intake: current Alcohol intake frequency: 3 or more drinks per day Alcohol type: hard liquor Patient Tobacco Use Status: Current everyday Tobacco user Tobacco use type: Cigarette Cigarettes Per Day: 5 Smoked in Last 30 Days: Yes e-Cigarette/Vaping Use: Currently Using Use of substances other than those prescribed or required for medical reasons: No Substance Use Type: Marijuana Advance Directives: No Advance Directives Information Provided: No service: No Current occupational status: employed 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 Full HPI, ROS and PE to be performed by primary ED provider. 23 yo M presenting to the ED c/o diffuse abdominal pain and brbpr x3 weeks. admits to etoh abuse drinking too much, last drink 12am. denies AC use PE: abd soft +epigastric ttp, no rebound or guarding Plan: labs, UA, occult stool Reevaluation(s) Reevaluation #1: CBC unremarkable. Chemistry no acute findings needing intervention. Patient's lipase normal. OBS positive however stool does not appear to have dereje red blood it is likely microscopic. UA without infection. I did repeat a CBC which shows no significant change in hemoglobin and hematocrit, no active rectal bleeding at this time. CT abdomen pelvis with no acute intra-abdominal process seen small posterior abdominal sebaceous cyst. Patient does have a history of hemorrhoids, will discharge him with Proctofoam. Patient is interested in speaking to the care team about alcohol use disorder and resources will reach out to them at this time Time: 16:58 Reevaluation #2: After patient is cleared by care team patient can be discharged home. Educated patient on diagnosis and treatment plan, answered all question, patient verbalizes understanding. At this time patient will be discharged home, advised to return with new or worsening symptoms. Educated on worrisome signs and symptoms and when to return. At this time I feel comfortable discharge home. Time: 16:58 Medical Decision Making Lab Data 04/20/24 15:01 04/20/24 12:06 Labs: Lab Results 04/20/24 04/20/24 04/20/24 Range/Units 11:28 12:06 14:43 WBC 7.7 (4.8-10.8) X10*3/uL RBC 5.44 (4.60-5.80) X10*6/uL Hgb 15.0 (14.0-18.0) g/dl Hct 45.2 (42.0-52.0) % MCV 83.1 (80.0-98.0) fL MCH 27.6 (27.0-33.0) pg MCHC 33.2 (31.0-36.0) g/dl RDW 13.8 (11.0-16.0) % Plt Count 299 (160-400) X10*3/uL MPV 9.6 (9.4-12.4) fL Immature Gran % (Auto) 0.3 (0.0-0.4) % Neut % (Auto) 68.6 (45-73) % Lymph % (Auto) 21.4 (20-40) % [place] % (Auto) 8.4 (2-11) % Eos % (Auto) 0.8 (0-4) % Baso % (Auto) 0.5 (0-2) % Lymph # (Auto) 1.6 (1.2-4.9) X10*3/uL [place] # (Auto) 0.6 (0.1-1.2) X10*3/uL Eos # (Auto) 0.1 (0.0-0.4) X10*3/uL Baso # (Auto) 0.0 (0.0-0.2) X10*3/uL Abs Immat Gran (auto) 0.02 (0.00-0.03) X10*3/uL Absolute Neuts (auto) 5.3 (2.0-8.3) x10*3/uL Absolute Nucleated RBC 0.000 (0.0-0.012) X10*3/uL Nucleated RBC % (auto) 0.0 (0.0-0.2) /100WBC PT 11.2 (10.9-12.4) SEC INR 1.0 (0.9-1.1) Sodium 141 (135-145) mmol/L Potassium 4.3 (3.3-5.1) mmol/L Chloride 105 (96-108) mmol/L Carbon Dioxide 28 (22-29) mmol/L Anion Gap 12 (12-20) BUN 13 (9-16) mg/dL Creatinine 0.96 (0.5-1.4) mg/dL Estim Creat Clear Calc 120.8 Estimated GFR > 60 Random Glucose 92 (60-115) mg/dL Calcium 9.8 (8.4-10.2) mg/dL Magnesium 2.3 (1.6-2.6) mg/dL Total Bilirubin 0.5 (0.0-1.0) mg/dL Direct Bilirubin 0.2 (0.0-0.5) mg/dL AST 25 (5-37) U/L ALT 28 (0-40) U/L Alkaline Phosphatase 69 (39-117) U/L Total Protein 8.4 H (6.5-8.0) g/dL Albumin 4.9 (3.5-5.0) g/dL Lipase 11 (8-78) U/L Urine Color Yellow Urine Appearance Clear Urine pH 6.0 (5.0-9.0) Ur Specific [place] 1.020 (1.005-1.025) Urine Protein Negative (Neg-Trace) mg/dL Urine Glucose (UA) Negative (Negative) mg/dL Urine Ketones Negative (Negative) mg/dL Urine Blood Trace H (Negative) Urine Nitrite Negative (Negative) Ur Leukocyte Esterase Negative (Negative) Urine RBC 0-2 (0-2) /HPF Urine WBC 0-5 (0-5) /HPF Ur Squamous Epith Cells 0-2 (0-2) /HPF Urine Bacteria None Seen (None Seen) Hyaline Casts 0-2 (0-2) /LPF Stool Occult Blood POSITIVE (NEGATIVE) Ethyl Alcohol < 10 mg/dL 04/20/24 Range/Units 15:01 WBC 8.1 (4.8-10.8) X10*3/uL RBC 5.24 (4.60-5.80) X10*6/uL Hgb 14.3 (14.0-18.0) g/dl Hct 42.8 (42.0-52.0) % MCV 81.7 (80.0-98.0) fL MCH 27.3 (27.0-33.0) pg MCHC 33.4 (31.0-36.0) g/dl RDW 13.7 (11.0-16.0) % Plt Count 286 (160-400) X10*3/uL MPV 8.9 L (9.4-12.4) fL Immature Gran % (Auto) 0.4 (0.0-0.4) % Neut % (Auto) 68.6 (45-73) % Lymph % (Auto) 21.7 (20-40) % [place] % (Auto) 7.8 (2-11) % Eos % (Auto) 0.9 (0-4) % Baso % (Auto) 0.6 (0-2) % Lymph # (Auto) 1.8 (1.2-4.9) X10*3/uL [place] # (Auto) 0.6 (0.1-1.2) X10*3/uL Eos # (Auto) 0.1 (0.0-0.4) X10*3/uL Baso # (Auto) 0.1 (0.0-0.2) X10*3/uL Abs Immat Gran (auto) 0.03 (0.00-0.03) X10*3/uL Absolute Neuts (auto) 5.6 (2.0-8.3) x10*3/uL Absolute Nucleated RBC 0.000 (0.0-0.012) X10*3/uL Nucleated RBC % (auto) 0.0 (0.0-0.2) /100WBC PT (10.9-12.4) SEC INR (0.9-1.1) Sodium (135-145) mmol/L Potassium (3.3-5.1) mmol/L Chloride (96-108) mmol/L Carbon Dioxide (22-29) mmol/L Anion Gap (12-20) BUN (9-16) mg/dL Creatinine (0.5-1.4) mg/dL Estim Creat Clear Calc Estimated GFR Random Glucose (60-115) mg/dL Calcium (8.4-10.2) mg/dL Magnesium (1.6-2.6) mg/dL Total Bilirubin (0.0-1.0) mg/dL Direct Bilirubin (0.0-0.5) mg/dL AST (5-37) U/L ALT (0-40) U/L Alkaline Phosphatase (39-117) U/L Total Protein (6.5-8.0) g/dL Albumin (3.5-5.0) g/dL Lipase (8-78) U/L Urine Color Urine Appearance Urine pH (5.0-9.0) Ur Specific [place] (1.005-1.025) Urine Protein (Neg-Trace) mg/dL Urine Glucose (UA) (Negative) mg/dL Urine Ketones (Negative) mg/dL Urine Blood (Negative) Urine Nitrite (Negative) Ur Leukocyte Esterase (Negative) Urine RBC (0-2) /HPF Urine WBC (0-5) /HPF Ur Squamous Epith Cells (0-2) /HPF Urine Bacteria (None Seen) Hyaline Casts (0-2) /LPF Stool Occult Blood (NEGATIVE) Ethyl Alcohol mg/dL Medications Administered Discontinued Medications Generic Name Dose Route Start Last Admin Trade Name Freq PRN Reason Stop Dose Admin Iohexol 85 ml 04/20/24 16:05 04/20/24 16:05 Iohexol 350 Mg/Ml 100 Ml Infus..Btl IV 04/20/24 16:06 85 ml ONCE ONE Administration Critical Care Time Critical Care Time Critical Care Time: No Discharge Plan Discharge Clinical Impression: Abdominal pain, Blood in stool, Irritable bowel syndrome Patient Disposition: Home, Self-Care Instructions: Irritable Bowel Syndrome (ED), Rectal Bleeding (ED), Abdominal Pain (ED) Additional Instructions: Take your medications as prescribed. If you were prescribed antibiotics today, it is important that you take your medication to their entirety, do not skip any doses, do not finish them early. Follow-up with your primary care provider this week. Return to the emergency department with new or worsening symptoms. Such as fevers, chills, chest pain, shortness of breath, nausea, vomiting, dizziness, headache, vision changes, lethargy In case of emergency call 911 CT/CT abdomen pelvis w IV con IMPRESSION: No acute intra-abdominal process seen. Small posterior abdomen sebaceous cyst Fleischner guidelines were followed. Prescriptions: New pramoxine [Proctofoam] 1 % foam 1 appl DC BID Qty: 15 0RF No Action albuterol sulfate [Ventolin HFA] 90 mcg/actuation HFA aerosol inhaler 2 puff inhalation Q4-6H PRN (Reason: shortness of breath or wheezing) 30 Days Qty: 8.5 3RF nicotine 10 mg cartridge 10 mg inhalation QID PRN (Reason: smoking cessation) Qty: 168 1RF metoprolol succinate 25 mg tablet extended release 24 hr 12.5 mg PO BID 90 Days Qty: 90 0RF loratadine 10 mg tablet 10 mg PO DAILY 90 Days Qty: 90 3RF hydrocortisone [Proctosol HC] 2.5 % cream with perineal applicator 1 appl DC BID-QID PRN (Reason: hemorrhoids) 4 Days Qty: 30 0RF polyethylene glycol 3350 [Miralax] 17 gram powder in packet 17 g PO DAILY 14 Days Qty: 14 0RF triamcinolone acetonide 0.1 % ointment topical budesonide-formoterol [Symbicort] 160-4.5 mcg/actuation HFA aerosol inhaler 2 puff inhalation BID ashwagandha extract 500 mg capsule PO bupropion HCl 75 mg tablet 75 mg PO BID 30 Days Qty: 60 1RF Referrals: [facility] G[facility] Services [Provider Group] - 2 days Eduardo Marquez MD [Primary Care Provider] - 2 days Stand Alone Forms: Work/School Release Print Language: Filipino
[2024-04-20 11:34] LABS: MANUAL DIFF FLAG NO
[2024-04-20 11:37] LABS: Basophils Percent Auto 0.5 % (0-2); Eosinophils Absolute Auto 0.1 X10*3/uL (0.0-0.4); Eosinophils Percent Auto 0.8 % (0-4); Hematocrit 45.2 % (42.0-52.0); Imm Gran Abs Auto 0.02 X10*3/uL (0.00-0.03); Imm Gran Pct Auto 0.3 % (0.0-0.4); Lymphocytes Absolute Auto 1.6 X10*3/uL (1.2-4.9); Lymphocytes Percent Auto 21.4 % (20-40); Mean Corpuscular HGB Conc 33.2 g/dl (31.0-36.0); Mean Corpuscular Hemoglobin 27.6 pg (27.0-33.0); Mean Corpuscular Volume 83.1 fL (80.0-98.0); Mean Platelet Volume 9.6 fL (9.4-12.4); Monocytes Absolute Auto 0.6 X10*3/uL (0.1-1.2); Monocytes Percent Auto 8.4 % (2-11); Neutrophils Absolute Auto 5.3 x10*3/uL (2.0-8.3); Neutrophils Percent Auto 68.6 % (45-73); Platelet Count 299 X10*3/uL (160-400); Red Blood Count 5.44 X10*6/uL (4.60-5.80); Red Cell Distribution Width 13.8 % (11.0-16.0); White Blood Count 7.7 X10*3/uL (4.8-10.8)
[2024-04-20 11:41] LABS: Prothrombin Time 11.2 SEC (10.9-12.4)
[2024-04-20 11:44] LABS: Appearance Urine Clear; Color Urine Yellow; Glucose Urine UA Negative (Negative); Leukocyte Esterase Urine Negative (Negative); Nitrite Urine Negative (Negative); UMIC TRIGGER UACC YES; Urine Blood Trace (Negative); Urine Ketones Negative (Negative); Urine Protein Negative (Neg-Trace)
[2024-04-20 11:47] LABS: Bacteria Urine None Seen (None Seen); Hyaline Casts Urine 0-2 /LPF (0-2); RBC Urine 0-2 /HPF (0-2); Squamous Epithelial Cell Urine 0-2 /HPF (0-2); WBC Urine 0-5 /HPF (0-5)
[2024-04-20 12:25] LABS: Ethanol < 10 mg/dL; Lipase 11 U/L (8-78)
[2024-04-20 12:29] LABS: Alanine Aminotransferase 28 U/L (0-40); Albumin Level 4.9 g/dL (3.5-5.0); Alkaline Phosphatase 69 U/L (39-117); Anion Gap 12 (12-20); Aspartate Amino Transferase 25 U/L (5-37); Bilirubin Direct 0.2 mg/dL (0.0-0.5); Bilirubin Total 0.5 mg/dL (0.0-1.0); Blood Urea Nitrogen 13 mg/dL (9-16); Calcium 9.8 mg/dL (8.4-10.2); Carbon Dioxide 28 mmol/L (22-29); Chloride 105 mmol/L (96-108); Creatinine Clr Calc Pharmacy 120.8; Estimated Glomerular Filt Rate > 60; Glucose Random 92 mg/dL (60-115); Magnesium 2.3 mg/dL (1.6-2.6); Potassium 4.3 mmol/L (3.3-5.1); Sodium 141 mmol/L (135-145); Total Protein 8.4 g/dL (6.5-8.0)
[2024-04-20 14:18] VITALS: BP 137/81; PULSE 79; RESP 16; TEMP 37.2; O2SAT 98
--- OUTSIDE RECORDS SUMMARY | 2024-04-20 14:47 | XMS_ITS | Encounter Summary ---
Author Organization [facility] Address [address] [place] [id number] Care Team Providers Care Cloth Piecer Name Role Phone Inna Giron Primary Care Provider [phone] Senia Tovar MD Primary Care Provider [phone] Reason for Visit * Reason Comments Medication Refill Encounter Details Date Type Department Care Team (Late st Contact Info) Description 05/15/2020 Refill [facility] G[facility], [place] [address] [place] [address] Nohelia Medrano MD [address] [place] [id number] Generalized abdominal pain Social History Tobacco Use Types Packs/Day Years Used Date Smoking Tobacco: Never Smokeless Tobacco: Never Sex and Gender Information Value Date Recorded Sex Assigned at Male 09/08/2020 10:43 AM EDT Legal Sex Male 10:41 AM EST Gender Identity Male 09/08/2020 10:43 AM EDT Sexual Orientation Bisexual 09/08/2020 10 :43 AM EDT documented as of this encounter Miscellaneous Notes * Telephone Encounter - Maria Victoria Quintanilla RN - 05/15/2020 3:03 PM EST Last visit: 04/29/20 Next visit: 06/10/20 Weight: 59.5 Allergies: reviewed Current dose Dicyclomine ( bentyl) - 1 pill three times a day for abdominal pain documented in this encounter Plan of Treatment Not on file documented as of this encounter Visit Diagnoses Diagnosis Generalized abdominal pain Abdominal pain, generalized documented in this encounter Care Teams Cloth Piecer Relationship Specialty Start Date End Date Inna Giron PA [address] [place] [address] [address] [place] [id number] PCP - General Physician Company Accountant 04/01/20 07/06/21 Senia Tovar MD [address] [place] [address] [address] [place] [place] [id number] PCP - General General Pediatrics 07/07/21 documented as of this encounter
--- OUTSIDE RECORDS SUMMARY | 2024-04-20 14:47 | XMS_ITS | Encounter Summary ---
Author Organization [address] [address] Care Team Providers Care Marriage Counselor Name Role Phone Senia Tovar MD Primary Care Provider [phone] Reason for Visit * Reason Comments Medication Refill Encounter Details Date Type Department Care Team ([facility] st Contact Info) Description 11/27/2021 Refill [facility] [address]astroenter[address] [address] Nohelia Medrano MD [address] [place] [address] Generalized abdominal pain Social History Tobacco Use Types Packs/Day Years Used Date Smoking Tobacco: Every Day Smokeless Tobacco: Never Sex and Gender Information Value Date Recorded Sex Assigned at Male 09/08/2020 10:43 AM EDT Legal Sex Male 10:41 AM EST Gender Identity Male 09/08/2020 10:43 AM EDT Sexual Orientation Bisexual 09/08/2020 10 :43 AM EDT documented as of this encounter Miscellaneous Notes * Telephone Encounter - Maria Victoria Quintanilla RN - 12/01/2021 10:27 AM EDT Spoke with Jaya and he went to the PMD on Tuesday and told them that he was having chest pain/heart pain and liver pain. The PMD sent him to the Emergency Department via ambulance. He reports he wasput in the psy-smith of the Emergency Department -he had bloodwork done(he did not know what they were testing for)EKG and Chest xray. He did speak with his regular therapist that he reports does not help him. Sees the therapist 1 times weekly for 40 minutes. Advised Jaya that the hyoscyamine script was sent to the pharmacy not the dicyclomine. When askedfor him to clarify which medication he wanted refilled he did not know. He was very confused. [employer] Clerk read him the office visit plan to resume the hyoscyamine. Patient instructions: Continue hyoscamine three times a day for abdominal pain. He reports he can not go to look to see which medication he is asking for because he stated the bottle of medication was lost. Jaya does not know what else to do to help himself. Advised perhaps MD Medrano and his PMD needed to speak to each other. He was not opposed to this. * Telephone Encounter - Maria Victoria Quintanilla RN - 11/30/2021 1:19 PM EDT Last appt: 09/29/21 Next appt: 02/01/22 Weight: 63.2 kg Allergies: reviewed Current dosage: Continue hyoscamine three times a day for abdominal pain * Telephone Encounter - Arabella Lee RN - 11/30/2021 1:05 PM EDT Jaya called Stomach pain not improving Needs refill of dicyclomine Wants a call when it is done documented in this encounter Plan of Treatment Not on file documented as of this encounter Visit Diagnoses Diagnosis Generalized abdominal pain Abdominal pain, generalized documented in this encounter Care Teams Marriage Counselor Relationship Specialty Start Date End Date Senia Tovar MD [address] [place] [address] [place] [address] PCP - General General Pediatrics 07/07/21 documented as of this encounter
--- OUTSIDE RECORDS SUMMARY | 2024-04-20 14:47 | XMS_ITS | Encounter Summary ---
Author Organization [facility] Address [address] [place] [address] Care Team Providers Care Plant Technical Specialist Name Role Phone Inna Giron Primary Care Provider [phone] Senia Tovar MD Primary Care Provider [phone] Reason for Visit * Reason Comments Medication Refill Encounter Details Date Type Department Care Team (Late st Contact Info) Description 10/08/2020 Refill [facility] Gastroenterology, [place] [address] [place] [address] Nohelia Medrano MD [address] [place] [phone] Generalized abdominal pain Social History Tobacco Use [...] encounter Miscellaneous Notes * Telephone Encounter - Arlene Scanlon RN - 10/08/2020 2:11 PM EDT Last seen in clinic 09/08/20 Dose correct- also has order for bentyl in med list, bentyl recommended with visit instructions Next appt 11-10-20 documented in this encounter Plan of Treatment Not on file documented as of this encounter Visit Diagnoses Diagnosis Generalized abdominal pain Abdominal pain, generalized documented in this encounter Care Teams Plant Technical Specialist Relationship Specialty Start Date End Date Inna Giron PA [address] [place] [address] [place] [address] PCP - General Physician Paralegal Specialist 04/01/20 07/06/21 Senia Tovar MD [address] [place] [address] [place] [address] PCP - General General Pediatrics 07/07/21 documented as of this encounter
--- OUTSIDE RECORDS SUMMARY | 2024-04-20 14:47 | XMS_ITS | Encounter Summary ---
Author Organization [facility] Address [address] [place] [address] Care Team Providers Care Banquet Cook Name Role Phone Senia Tovar MD Primary Care Provider [phone] Reason for Visit * Reason Comments Medication Refill Encounter Details Date Type Department Care Team (Late st Contact Info) Description 07/26/2021 Refill [facility] Gastroenterology, [place] [address] [place] [address] Nohelia Medrano MD [address] [place] [phone] Generalized abdominal pain Social History Tobacco Use [...] encounter Miscellaneous Notes * Telephone Encounter - Gloria Edgar RN - 07/27/2021 9:13 AM EDT Last visit: 07/07/21 Next visit: 09/29/21 Weight: 60.1 kg Allergies: reviewed Current dose: spoke with patient, no longer taking. Patient reported that he is taking hyoscyamine. documented in this encounter Plan of Treatment Not on file documented as of this encounter Visit Diagnoses Diagnosis Generalized abdominal pain Abdominal pain, generalized documented in this encounter Care Teams Banquet Cook Relationship Specialty Start Date End Date Senia Tovar MD [address] [place] [address] [place] [address] PCP - General General Pediatrics 07/07/21 documented as of this encounter
--- OUTSIDE RECORDS SUMMARY | 2024-04-20 14:47 | XMS_ITS | Encounter Summary ---
Author Organization [facility] Address [address] [place] [address] Care Team Providers Care Incident Response Consultant Name Role Phone Inna Giron Primary Care Provider [phone] Senia Tovar MD Primary Care Provider [phone] Reason for Visit * Reason Comments Medication Refill Encounter Details Date Type Department Care Team (Late st Contact Info) Description 07/03/2020 [facility]ill [facility] [address] [place] [address] Nohelia Medrano MD [address] [place] [address] Generalized abdominal pain Social History Tobacco Use [...] Telephone Encounter - Arlene Scanlon RN - 07/03/2020 2:48 PM EDT Last seen 06-10-20 Dose correct Next appt 09-08-20 documented in this encounter Plan of Treatment Not on file documented as of this encounter Visit Diagnoses Diagnosis Generalized abdominal pain Abdominal pain, generalized documented in this encounter Care Teams Incident Response Consultant Relationship Specialty Start Date End Date Inna Giron PA [address] [place] [address] [place] [address] PCP - General Physician Manager Application Development 04/01/20 07/06/21 Senia Tovar MD [address] [place] [address] [place] [address] PCP - General General Pediatrics 07/07/21 documented as of this encounter
--- OUTSIDE RECORDS SUMMARY | 2024-04-20 14:47 | XMS_ITS | Encounter Summary ---
Author Organization [facility] Address [address] [place] [address] Care Team Providers Care Community Planner Name Role Phone Senia Tovar MD Primary Care Provider [phone] Reason for Visit * Reason Comments Medication Refill Encounter Details Date Type Department Care Team (Late st Contact Info) Description 11/30/2021 Refill [facility] Gastroenterology, [place] [address] [place] [address] Nohelia Medrano MD [address] [place] [address] Generalized abdominal pain Social History Tobacco Use [...] Encounter - Maria Victoria Quintanilla RN - 12/03/2021 2:40 PM EDT Patient discontinued the dicyclomine he is on Hyoscyamine. documented in this encounter Plan of Treatment Not on file documented as of this encounter Visit Diagnoses Diagnosis Generalized abdominal pain Abdominal pain, generalized documented in this encounter Care Teams Community Planner Relationship Specialty Start Date End Date Senia Tovar MD [address] [place] [address] [place] [address] PCP - General General Pediatrics 07/07/21 documented as of this encounter
--- OUTSIDE RECORDS SUMMARY | 2024-04-20 14:47 | XMS_ITS | Encounter Summary ---
Author Organization [facility] Address [address] [place] [address] Care Team Providers Care Laborer Tanbark Name Role Phone Inna Giron Primary Care Provider [phone] Senia Tovar MD Primary Care Provider [phone] Reason for Visit * Reason Comments Medication Refill Encounter Details Date Type Department Care Team (Late st Contact Info) Description 06/20/[address] [facility] Gastroenterology, [place] [address] [place] [address] Nohelia Medrano MD [address] [place] [address] Generalized abdominal pain Social History Tobacco Use [...] Encounter - Maria Victoria Quintanilla RN - 06/20/2020 8:09 AM EDT Last visit: 06/10/20 Next visit: 09/08/20 Weight: 60.2 kg Allergies: reviewed Current dose: Continue dicyclomine 10 mg po three times a day for abdominal pain documented in this encounter Plan of Treatment Not on file documented as of this encounter Visit Diagnoses Diagnosis Generalized abdominal pain Abdominal pain, generalized documented in this encounter Care Teams Laborer Tanbark Relationship Specialty Start Date End Date Inna Giron PA [address] [place] [address] [address] [place] [address] PCP - General Physician Sprinkler Repair Technician 04/01/20 07/06/21 Senia Tovar MD [address] [place] [address] [place] [address] PCP - General General Pediatrics 07/07/21 documented as of this encounter
--- OUTSIDE RECORDS SUMMARY | 2024-04-20 14:47 | XMS_ITS | Encounter Summary ---
Author Organization [facility] Address [address] [place] [address] Care Team Providers Care Business Process Manager Name Role Phone Inna Giron Primary Care Provider [phone] Senia Tovar MD Primary Care Provider [phone] Reason for Visit * Reason Comments Medication Refill Encounter Details Date Type Department Care Team (Late st Contact Info) Description 04/05/2021 Refill [facility] Gastroenterology, [place] [address] [place] [address] Nohelia Medrano MD [address] [place] [address] Generalized abdominal pain Social History Tobacco Use [...] encounter Miscellaneous Notes * Telephone Encounter - Lourdes Nickerson MA - 04/06/2021 10:48 AM EST Jaya follow up appt scheduled for 06/02/21 at 11:30am * Telephone Encounter - Maria Victoria Quintanilla RN - 04/06/2021 8:47 AM EST Last visit: 11/10/20 Next visit: no show appt on 02/09/21 Please call Jaya to book a follow up appt Weight: 58.6 kg Allergies: reviewed Current dose: Continue dicyclomine 10 mg po three times a day for abdominal pain documented in this encounter Plan of Treatment Not on file documented as of this encounter Visit Diagnoses Diagnosis Generalized abdominal pain Abdominal pain, generalized documented in this encounter Care Teams Business Process Manager Relationship Specialty Start Date End Date Inna Giron PA [address] [place] [address] [place] [address] PCP - General Physician Dandy Operator 04/01/20 07/06/21 Senia Tovar MD [address] [place] [address] [place] [address] PCP - General General Pediatrics 07/07/21 documented as of this encounter
--- OUTSIDE RECORDS SUMMARY | 2024-04-20 14:47 | XMS_ITS | Encounter Summary ---
Author Organization [facility] Address [address] [place] [address] Care Team Providers Care Japanese Tutor Name Role Phone Inna Giron Primary Care Provider [phone] Senia Tovar MD Primary Care Provider [phone] Reason for Visit * Reason Comments Medication Refill Encounter Details Date Type Department Care Team (Late st Contact Info) Description 09/02/2020 Refill [facility] Gastroenterology, [place] [address] [place] [address] Nohelia Medrano MD [address] [place] [address] Generalized abdominal pain Social History Tobacco Use [...] Encounter - Maria Victoria Quintanilla RN - 09/02/2020 10:03 AM EDT Last visit: 06/10/20 Next visit: 09/08/20 Weight: 60.2 kg Allergies: reviewed Current dose: Continue dicyclomine 10 mg po three times a day for abdominal pain documented in this encounter Plan of Treatment Not on file documented as of this encounter Visit Diagnoses Diagnosis Generalized abdominal pain Abdominal pain, generalized documented in this encounter Care Teams Japanese Tutor Relationship Specialty Start Date End Date Inna Giron PA [address] [place] [address] [address] [place] [address] PCP - General Physician Curer Acid Drum 04/01/20 07/06/21 Senia Tovar MD [address] [place] [address] [place] [address] PCP - General General Pediatrics 07/07/21 documented as of this encounter
--- OUTSIDE RECORDS SUMMARY | 2024-04-20 14:47 | XMS_ITS | Encounter Summary ---
Author Organization [facility] Address [address] [place] [address] Care Team Providers Care Database Security Administrator Name Role Phone Inna Giron Primary Care Provider [phone] Senia Tovar MD Primary Care Provider [phone] Reason for Visit * Reason Comments Medication Refill Encounter Details Date Type Department Care Team (Late st Contact Info) Description 12/10/2020 [facility] [address] [place] [address] Nohelia Medrano MD [address] [place] [address] Generalized abdominal pain Social History Tobacco Use [...] Telephone Encounter - Arlene Scanlon RN - 12/10/2020 8:54 AM EDT Last seen in clinic 11-10-20 Per visit note not taking, using bentyl documented in this encounter Plan of Treatment Not on file documented as of this encounter Visit Diagnoses Diagnosis Generalized abdominal pain Abdominal pain, generalized documented in this encounter Care Teams Database Security Administrator Relationship Specialty Start Date End Date Inna Giron PA [address] [place] [address] [address] Jillian [place] [address] PCP - General Physician Drum Loader And Unloader 04/01/20 07/06/21 Senia Tovar MD [address] [place] [address] [address] Jillian [place] [address] PCP - General General Pediatrics 07/07/21 documented as of this encounter
--- OUTSIDE RECORDS SUMMARY | 2024-04-20 14:47 | XMS_ITS | Encounter Summary ---
Author Organization [facility] Address [address] [place] [address] Care Team Providers Care Detailer Furniture Name Role Phone Inna Giron Primary Care Provider Senia Tovar MD Primary Care Provider [phone] Reason for Visit * Reason Comments Medication Refill Encounter Details Date Type Department Care Team (Late st Contact Info) Description 01/07/2021 Refill [facility] Gastroenterology, [place] [address] [place] [address] Nohelia Medrano MD [address] [place] [address] Generalized abdominal pain Social History Tobacco Use [...] Encounter - Maria Victoria Quintanilla RN - 01/09/2021 8:58 AM EDT Last visit: 11/10/20 Next visit: 02/09/21 Weight: 58.6 kg Allergies: reviewed Current dose: Continue dicyclomine 10 mg po three times a day for abdominal pain documented in this encounter Plan of Treatment Not on file documented as of this encounter Visit Diagnoses Diagnosis Generalized abdominal pain Abdominal pain, generalized documented in this encounter Care Teams Detailer Furniture Relationship Specialty Start Date End Date Inna Giron PA [address] [place] [address] [address] [place] [address] PCP - General Physician Composition Teacher 04/01/20 07/06/21 Senia Tovar MD [address] [place] [address] [place] [address] PCP - General General Pediatrics 07/07/21 documented as of this encounter
--- OUTSIDE RECORDS SUMMARY | 2024-04-20 14:47 | XMS_ITS | Encounter Summary ---
Author Organization [facility] Address [address] [place] [address] Care Team Providers Care Blending Supervisor Name Role Phone Senia Tovar MD Primary Care Provider [phone] Reason for Visit * Reason Comments Medication Refill Encounter Details Date Type Department Care Team ([facility] st Contact Info) Description 09/09/2021 Refill [facility] Gastroenter[address] [address] Nohelia Medrano MD [address] [place] [address] Generalized abdominal pain Social History Tobacco Use [...] encounter Miscellaneous Notes * Telephone Encounter - Arabella Lee RN - 09/09/2021 2:18 PM EDT Last Appointment 07/07/21 (07/29/21 scope) Next Appointment 09/29/21 Weight 58.3 kg Current Dose correct per 07/17/21 encounter Allergies reviewed documented in this encounter Plan of Treatment Not on file documented as of this encounter Visit Diagnoses Diagnosis Generalized abdominal pain Abdominal pain, generalized documented in this encounter Care Teams Blending Supervisor Relationship Specialty Start Date End Date Senia Tovar MD [address] [place] [address] [address] [place], [place] [address] PCP - General General Pediatrics 07/07/21 documented as of this encounter
--- OUTSIDE RECORDS SUMMARY | 2024-04-20 14:47 | XMS_ITS | Clinical Summary ---
Author Organization [facility] Address [address] [place] [address] Care Team Providers Care Bath Steward Name Role Phone Senia Tovar MD Primary Care Provider [phone] Source Comments Please note that some or all of the patient's information could have additional privacy protections. State laws allow health care providers to render certain types of treatment to minors without parental consent. Please do not assume that this information can be shared solely by obtaining just the consent of the patient's parent/guardian. Please determine if all or part of the patient's care was rendered without parent/guardian involvement. And, if so, obtain the minor's consent prior to disclosure.[facility] Allergies Active Allergy Reactions Criticality Noted Date Comments Aspirin 07/07/2021 Other reaction(s): Unknown body region Avocado 06/10/2020 Other reaction(s): Unknown body region Banana 04/10/2020 Dog Dander 04/10/2020 Mite-Dermatophagoides Farinae, Standardized 04/10/2020 House Dust 06/30/2021 Ibuprofen 04/29/2020 Pt reports GI upset and vomiting each time he takes this medication Seasonal 08/12/2023 Medications polyethylene glycol (MIRALAX) 17 gram/dose powderIndication s:Constipation, unspecified constipation type Mix 16 capfuls in 64 oz gatorade drink over 4 to 6 hours followed by 1 capful twice daily 595 g 3 2 Active Additional Information Patient not taking.Reported on 02/01/2022 senna (SENOKOT) 8.6 mg tabletIndication s:Constipation, unspecified constipation type Take 2 tablets by mouth nightly 60 tablet 3 2 Active Additional Information Patient not taking.Reported on 08/12/2023 ALBUTEROL INHL Inhale 2 puffs into the lungs 4 (four) times daily as needed Active hydrOXYzine (ATARAX) 50 MG tablet Take 50 mg by mouth 3 (three) times daily as needed for Itching Active polyethylene glycol (MIRALAX) 17 gram/dose powderIndication s:Generalized abdominal pain,Constipatio n, unspecified constipation type Mix 16 capfuls in 64 oz gatorade drink over 4 to 6 hours followed by 1 capful twice daily 595 g 3 2 Active Additional Information Patient not taking.Reported on 02/01/2022 PULMICORT FLEXHALER 180 mcg/actuation inhaler INHALE 2 PUFFS BY MOUTH TWICE A DAY DIRECTED 2 Active SYMBICORT 160-4.5 mcg/actuation inhaler 2 Active cephalexin (KEFLEX) 500 MG capsule TAKE 1 CAPSULE BY MOUTH EVERY 6 HOURS FOR 7 DAYS 2 Active clotrimazole-bet amethasone (LOTRISONE) cream USE 1 APPL TOPICALLY 2 TIMES A DAY FOR 2 WEEKS 2 Active hydrocortisone 2.5 % ointment APPLY TO AFFECTED AREAS ON FACE TWICE DAILY FOR 1 WEEK, BREAK 1 WEEK AND REPEAT NEEDED 2 Active nystatin-triamci nolone (MYCOLOG) ointment APPLY TO AFFECTED SKIN FOLDS TWICE DAILY FOR ONE WEEK BREAK FOR ONE WEEK AND REPEAT NEEDED. 2 Active PARoxetine (PAXIL) 10 MG tablet 2 Active omeprazole (PRILOSEC) 40 MG capsule TAKE 1 CAPSULE BY MOUTH EVERY DAY X14 DAYS 2 Active predniSONE (DELTASONE) 10 MG tablet TAKE 3 TABS ONCE DAILY FOR 7 DAYS, 2 TABS FOR 7 DAYS, THEN 1 TAB FOR 7 DAYS 2 Active QUEtiapine (SEROQUEL) 25 MG tablet TAKE 1 TO 2 TABLETS BY MOUTH AT BEDTIME NEEDED 2 Active tiZANidine (ZANAFLEX) 2 MG tablet PLEASE SEE ATTACHED FOR DETAILED DIRECTIONS 2 Active triamcinolone (KENALOG) 0.025 % cream APPLY TOPICALLY TWICE A DAY APPLY SPARINGLY TO AFFECTED SKIN ON FACE. AVOID EYE AREA. 2 Active triamcinolone (KENALOG) 0.1 % ointment APPLY TWICE DAILY FROM NECK DOWN FOR TWO WEEKS BREAK ONE WEEK REPEAT NEEDED. 3 Active VENTOLIN HFA 90 mcg/actuation inhaler INHALE 2 PUFFS BY MOUTH EVERY 4 TO 6 HOURS NEEDED FOR SHORTNESS OF BREATH OR WHEEZE 4 Active ARIPiprazole (ABILIFY) 2 MG tablet TAKE 1/2 TABLET ORALLY BEDTIME FOR 30 DAYS 4 Active azithromycin (ZITHROMAX) 250 MG tablet TAKE 2 TABLETS BY MOUTH TODAY, THEN TAKE 1 TABLET DAILY FOR 4 DAYS DIRECTED 4 Active erythromycin (ROMYCIN) ophthalmic ointment APPLY 1 A SMALL AMOUNT INTO BOTH EYES FOUR TIMES A DAY APPLY TO INCISION SITES FOR 2 WEEKS THEN STOP 4 Active MEtopROLOL (TOPROL-XL) 25 MG 24 hr tablet 12.5 mg 4 Active mirtazapine (REMERON) 7.5 MG tablet Take 7.5 mg by mouth 4 Active neomycin-polymyx in B-dexameth (MAXITROL) 3.5 mg/g-10,000 unit/g-0.1 % Ointment APPLY 1 INCH INTO AFFECTED EYE FOUR TIMES A DAY USE FOR 2 WEEKS THEN STOP 4 Active neomycin-polymyx in-dexamethasone (MAXITROL) 3.5mg/mL-10,000 unit/mL-0.1 % ophthalmic suspension INSTILL 1 DROP INTO BOTH EYES FOUR TIMES A DAY USE FOR TWO WEEKS THEN STOP 4 Active nicotine (NICODERM CQ) 21 mg/[address] 1 PATCH TO SKIN DAILY 4 Active venlafaxine (EFFEXOR) 75 MG tablet Take 75 mg by mouth 2 (two) times daily 4 Active predniSONE (DELTASONE) 20 MG tablet TAKE 2 TABLETS ORALLY DAILY FOR 5 DAYS 4 Active linaCLOtide (LINZESS) 72 mcg CapsuleIndicatio ns:Generalized abdominal pain,Constipatio n, unspecified constipation type Take 72 mcg by mouth daily 30 capsule 6 4 Active loratadine (CLARITIN) 10 mg tabletIndication s:Other seasonal allergic rhinitis TAKE 1 TABLET (10 MG) BY MOUTH DAILY. 90 tablet 3 4 Active Active Problems Problem Noted Date Diagnosed Date Generalized abdominal pain 06/30/2021 Overview (06/30/2021): Added automatically from request for surgery [id number] Family History Medical History Relation Name Comments Appendicitis Father No Known Problems Mother Irritable bowel syndrome Paternal Aunt Anesthesia problems Neg Hx Relation Name Status Comments Father Mother Paternal Aunt Social History Tobacco Use Types Packs/Day Years Used Date Smoking Tobacco: Every Day Smokeless Tobacco: Never Tobacco Cessation:Ready to Q uit: Not Asked; Counseling Given: Not Answered Other Needs Answer Date Recorded Anything else about your child you'd like help w ith? Not on file 12/03/2022 Share good news about positive changes: Not on f ile 12/03/2022 Sex and Gender Information Value Date Recorded Sex Assigned at Male 09/08/2020 10:43 AM EDT Legal Sex Male 10:41 AM EST Gender Identity Male 09/08/2020 10:43 AM EDT Sexual Orientation Bisexual 09/08/2020 10 :43 AM EDT Last Filed Vital Signs Vital Sign Reading Time Taken Comments Blood Pressure 119/68 08/12/2023 8:26 AM EDT Pulse 72 08/12/2023 8:26 AM EDT Temperature 36.6 ??C (97.9 ??F) 07/29/2021 2:42 PM ED T Respiratory Rate 18 07/29/2021 2:57 PM EDT Oxygen Saturation 98% 09/29/2021 12:11 PM EDT Inhaled Oxygen Concentration - - Weight 76.8 kg (169 lb 5 oz) 08/12/2023 8:26 AM EDT Height 164.5 cm (5' 4.76 ) 08/12/2023 8:26 AM ED T Body Mass Index 28.38 08/12/2023 8:26 AM EDT Plan of Treatment Health Maintenance Due Date Last Done Comments DTaP/TDAP/TD VACCINES (1 - Tdap) 2009 ADOLESCENT HIV SCREENING 06/02/2015 COVID-19 Vaccine (2023-2 5 season) 2023 INFLUENZA (#1) 2023 NIRSEVIMAB VACCINES UNDER 8 MONTHS Aged Out No longer eligible based on patient's age to complete this topic Insurance [employer] Care Teams Bath Steward Relationship Specialty Start Date End Date Senia Tovar MD [address] [place] [address] [address] [place], [place] [id number] PCP - General General Pediatrics 07/07/21
--- OUTSIDE RECORDS SUMMARY | 2024-04-20 14:48 | XMS_ITS | Referral Summary ---
Author Organization [facility] Address [address] [place] [address] Care Team Providers Care Medical Technologist Generalist Name Role Phone Senia Tovar MD Primary Care Provider Source Comments Please note that some or [...] so, obtain the minor's consent prior to disclosure.[facility] Allergies Active Allergy Reactions Criticality Noted [...] (06/30/2021): Added automatically from request for surgery [id number] Social History Tobacco Use Types Packs/Day Years [...] 08/12/2023 8:26 AM EDT Plan of Treatment Not on file Insurance [facility] [place] [id number] Care Teams Medical Technologist Generalist Relationship Specialty Start Date End Date Senia Tovar MD [address] [place] [address] [address] [place] [id number] PCP - General General Pediatrics 07/07/21
--- OUTSIDE RECORDS SUMMARY | 2024-04-20 14:48 | XMS_ITS | Encounter Summary ---
Author Organization [facility] Address [address] [place] [address] Care Team Providers Care Auxiliary Plant Operator Name Role Phone Inna Giron Primary Care Provider [phone] Senia Tovar MD Primary Care Provider [phone] Reason for Visit * Reason Comments Medication Refill Encounter Details Date Type Department Care Team (Late st Contact Info) Description 11/11/2020 Refill [facility], [place] [address] [place] [address] Nohelia Medrano MD [address] [place] [id number] Generalized abdominal pain Social History Tobacco Use [...] Encounter - Maria Victoria Quintanilla RN - 11/11/2020 8:37 AM EDT Last visit: 11/10/20 Next visit: 02/09/21 Weight: 58.6 kg Allergies: reviewed Current dose: Continue dicyclomine 10 mg po three times a day for abdominal pain documented in this encounter Plan of Treatment Not on file documented as of this encounter Visit Diagnoses Diagnosis Generalized abdominal pain Abdominal pain, generalized documented in this encounter Care Teams Auxiliary Plant Operator Relationship Specialty Start Date End Date Inna Giron PA [address] [place] [address] [address] [place] [address] PCP - General Physician Melter Assistant 04/01/20 07/06/21 Senia Tovar MD [address] [place] [address] [place] [address] PCP - General General Pediatrics 07/07/21 documented as of this encounter
[2024-04-20 14:53] LABS: OBS Int Ctl Valid YES; OBS1 POSITIVE (NEGATIVE)
[2024-04-20 15:06] LABS: MANUAL DIFF FLAG NO
[2024-04-20 15:07] LABS: Basophils Absolute Auto 0.1 X10*3/uL (0.0-0.2); Basophils Percent Auto 0.6 % (0-2); Eosinophils Absolute Auto 0.1 X10*3/uL (0.0-0.4); Eosinophils Percent Auto 0.9 % (0-4); Hematocrit 42.8 % (42.0-52.0); Hemoglobin 14.3 g/dl (14.0-18.0); Imm Gran Abs Auto 0.03 X10*3/uL (0.00-0.03); Imm Gran Pct Auto 0.4 % (0.0-0.4); Lymphocytes Absolute Auto 1.8 X10*3/uL (1.2-4.9); Lymphocytes Percent Auto 21.7 % (20-40); Mean Corpuscular HGB Conc 33.4 g/dl (31.0-36.0); Mean Corpuscular Hemoglobin 27.3 pg (27.0-33.0); Mean Corpuscular Volume 81.7 fL (80.0-98.0); Mean Platelet Volume 8.9 fL (9.4-12.4); Monocytes Absolute Auto 0.6 X10*3/uL (0.1-1.2); Monocytes Percent Auto 7.8 % (2-11); Neutrophils Absolute Auto 5.6 x10*3/uL (2.0-8.3); Neutrophils Percent Auto 68.6 % (45-73); Platelet Count 286 X10*3/uL (160-400); Red Blood Count 5.24 X10*6/uL (4.60-5.80); Red Cell Distribution Width 13.7 % (11.0-16.0); White Blood Count 8.1 X10*3/uL (4.8-10.8)
[2024-04-20 15:53] VITALS: BP 124/80; PULSE 74; RESP 16; TEMP 36.9; O2SAT 100
[2024-04-20] MEDS: iohexoL 350 MG/ML 100 ML INFUS..BTL 85 ML IV (16:05)
--- NOTE | 2024-04-20 16:48 | PC.NURSE ---
Patient awake and alert. skin pwd, resp even and non labored, speaking in full, clear sentences. reports 6/10 diffuse abdominal pain w/ constipation and nausea. denies further episodes of rectal bleeding since being in ED. awaiting results of CT
--- NOTE | 2024-04-20 17:13 | MHC.CARE ---
Pt was provided resources and information for recovery.
[2024-04-20 17:32] VITALS: BP 132/78; PULSE 71; RESP 16; TEMP 36.8; O2SAT 98
[2024-04-20 17:48] VITALS: BP 132/78; PULSE 71; RESP 16; TEMP 36.8; O2SAT 98
== END 2024-04-20 17:49 | disposition home or self-care (01) ==
PROVIDERS: Physician Assistant; Emergency Provider Emergency Medicine; PCP Family Medicine
DX: K58.9 Irritable bowel syndrome, unspecified (principal); R10.2 Pelvic and perineal pain; K62.5 Hemorrhage of anus and rectum; Z79.899 Other long term (current) drug therapy
CPT/HCPCS: 36415; 74177; 80053; 80307; 81001; 82248; 82272; 83690; 83735; 85025; 85610; 99284; Q9967

== ENCOUNTER → 2024-04-20 14:45 | Outpatient (BNV) | payer OTHER, SELFPAY | PROVIDERS: PCP Family Medicine; Visit Provider Radiology Diagnostic Radiology | DX: L72.3 Sebaceous cyst (principal) | CPT/HCPCS: 74177 ==

== ENCOUNTER → 2024-04-30 16:18 | Outpatient (BNVA) | payer OTHER, SELFPAY | PROVIDERS: PCP Family Medicine ==

== ENCOUNTER 2024-05-05 08:50 | Emergency (ER) | payer OTHER, SELFPAY ==
--- NOTE | ~2024-05-05 | CT_ITS ---
CLINICAL HISTORY: HEADACHE CT head without contrast Comparison: None Findings: No intra-axial mass, midline shift, hydrocephalus, or acute hemorrhage. No significant atrophy-like change or white matter disease. The visualized paranasal sinuses and mastoid air cells are normal. The orbits are within normal limits. No skull fracture. IMPRESSION: 1. No acute intracranial findings. This document has been electronically signed by: Roberto Galarza MD on 05/05/2024 12:15:11
[2024-05-05 09:06] VITALS: BP 104/77; PULSE 110; RESP 22; TEMP 36.6; O2SAT 98; BMI 32.6
--- NOTE | 2024-05-05 09:20 | PC.NURSE ---
patients stated my skull is on fire, I want to gouge my eyes out with a spoon pt stated that he does have a history of chronic migraines but feels this is different.
[2024-05-05 10:07] LABS: IDNOW Serial# 58CA691E; Strep A Nucleic Acid Negative (Negative)
[2024-05-05] MEDS: 0.9 % Sodium Chloride 1,000 ML 999 ML IV (10:09)
[2024-05-05] MEDS: diphenhydrAMINE HCL 50 MG/ML VIAL 25 MG IVPUSH (10:09)
[2024-05-05] MEDS: Morphine Sulfate 2 MG/ML CARTRIDGE IVPUSH (10:09)
[2024-05-05] MEDS: Metoclopramide HCl 10 MG/2 ML VIAL IVPUSH (10:09)
--- NOTE | 2024-05-05 10:22 | ED.HA ---
HPI - Headache General Chief Complaint: Headache Stated Complaint: Migraine Time Seen by Provider: 05/05/24 09:16 Source: patient and other (spouse) Mode of arrival: ambulatory Limitations: no limitations History of Present Illness ED Provider: ANEL HPI Narrative: 23 yo male with PMH of ETOH use disorder, IBS, asthma, hyperthyroidism, depression and anxiety here with c/o hx of migraines and severe pain starting at 3am no trauma has had a cold and sore throat. He has no fevers. He states he can only take tylenol. He is not on thinners. He feels like someone is hammering his head. He has had headaches but not this painful before. MD elicited complaint: headache and migraine Pertinent past history: migraines Onset (ago): hour(s) (3am today) Onset description: suddenly and while at rest Location: diffuse Severity: severe Quality & Timing: sharp Exacerbating factors: light and noise Relieving factors: nothing Context: occurred at rest Associated symptoms: nausea, vomiting and other (sore throat) Related Data Home Medications ?Medication ?Instructions ?Recorded ?Confirmed budesonide-formoterol HFA 160 2 puff inhalation BID 01/14/22 01/10/24 mcg-4.5 mcg/actuation aerosol inhaler (Symbicort) triamcinolone acetonide 0.1 % topical 07/19/22 01/10/24 topical ointment ashwagandha extract 500 mg capsule mg PO 01/10/24 01/10/24 Previous Rx's ?Medication ?Instructions ?Recorded hydrocortisone 2.5 % topical cream 1 appl DC BID-QID PRN hemorrhoids 11/02/23 with perineal applicator 4 days #30 grams (Proctosol HC) polyethylene glycol 3350 17 gram 17 g PO DAILY 14 days #14 ea 11/02/23 oral powder packet (Miralax) albuterol sulfate 90 mcg/actuation 2 puff inhalation Q4-6H PRN 01/17/24 aerosol inhaler (Ventolin HFA) shortness of breath or wheezing 30 days #8.5 grams nicotine 10 mg inhalation cartridge 10 mg inhalation QID PRN smoking 01/18/24 cessation #168 ea metoprolol succinate 25 mg 12.5 mg (1/2 x 25 mg) PO BID 90 01/19/24 tablet,extended release 24 hr days #90 tabs loratadine 10 mg tablet 10 mg PO DAILY 90 days #90 tabs 01/20/24 bupropion HCl 75 mg tablet 75 mg PO BID 30 days #60 tabs 04/10/24 pramoxine 1 % topical foam 1 appl DC BID #15 grams 04/20/24 (Proctofoam) cyclobenzaprine 10 mg tablet 10 mg PO TID PRN muscle spasm #20 05/05/24 tabs ondansetron 4 mg disintegrating 4 mg PO Q8H PRN nausea and 05/05/24 tablet vomiting #20 tabs Allergies Allergy/AdvReac Type Severity Reaction Status Date / Time ibuprofen [IBUPROFEN] Allergy Intermediate ABD PAIN Verified 05/05/24 09:08 AND REFLUX aspirin [ASA] Allergy Swelling Verified 05/05/24 09:08 avocado Allergy Swelling Verified 05/05/24 09:08 banana Allergy Anaphylaxis Verified 05/05/24 09:08 gluten Allergy Abdominal Verified 05/05/24 09:08 Pain house dust Allergy Unknown Verified 05/05/24 09:08 lactose Allergy Abdominal Verified 05/05/24 09:08 Pain venlafaxine AdvReac Mild vomiting, Verified 05/05/24 09:08 disorintation seasonal Allergy Unknown unknown Uncoded 05/05/24 09:08 Review of Systems Review of Systems: Constitutional : No Fever, No Chills, No Fatigue ENT/Mouth : pos sore throat, No Rhinorrhea Eyes: No Eye Pain, No Swelling, No Redness, pos photophobia Cardiovascular : No Chest Pain, No SOB, No Dyspnea on Exertion Respiratory : No Cough, No Sputum Gastrointestinal : pos Nausea, pos Vomiting, No Diarrhea, No abdominal Pain Genitourinary : No Dysuria, No Urinary Frequency, No Hematuria, Musculoskeletal : No joint pain, No Myalgias, No Joint Swelling Skin : No Skin Lesions, No rash Neuro : No Weakness, No Numbness, No Dizziness, positive Headache Psych : No Anxiety/Panic, No Depression All other systems reviewed and are negative [facility] Past Medical History Attestation statement: The following information was validated with the patient. Source: old records reviewed Medical History Acid reflux Anxiety Depression Asthma Epidermal inclusion cyst Constipation Surgical History Hx of colonoscopy H/O endoscopy Family History Family History Mother Anxiety Depression Maternal Grandfather Substance abuse Maternal Grandmother Anxiety Depression Father Arthritis Social History Social History Household Members: Family Housing: House Alcohol intake: current Alcohol intake frequency: 3 or more drinks per day Alcohol type: hard liquor Patient Tobacco Use Status: Current everyday Tobacco user Tobacco use type: Cigarette Cigarettes Per Day: 5 Smoked in Last 30 Days: No e-Cigarette/Vaping Use: Currently Using Use of substances other than those prescribed or required for medical reasons: No Substance Use Type: Marijuana Advance Directives: No Advance Directives Information Provided: Yes Do you have a plan to hurt others: No Plan service: No Current occupational status: employed 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 Oriented X3. in pain punching stretcher, mild acute distress. Eyes: Pupils equal, round and reactive to light. photophobic ENT: Pharynx very mild erythema no exudates Neck: Normal inspection. Neck supple. CVS: Normal heart rate and rhythm. Pulses normal. Respiratory: No respiratory distress. Breath sounds normal. Abdomen: Soft and nontender. Skin: Skin warm and dry. Normal skin color. Normal skin turgor. Extremities: No lower extremity edema. No calf ttp Neuro: Oriented X 3. No motor deficit. No sensory deficit. CN2-12 intact Medications Administered Discontinued Medications Generic Name Dose Route Start Last Admin Trade Name Freq PRN Reason Stop Dose Admin Diphenhydramine HCl 25 mg 05/05/24 09:27 05/05/24 10:09 Diphenhydramine Hcl 50 Mg/Ml Vial IVPUSH 05/05/24 09:28 25 mg ONCE ONE Administration Sodium Chloride 1,000 mls @ 999 mls/hr 05/05/24 09:27 05/05/24 11:46 Ns IV 05/05/24 10:27 Infused .Q1H1M ONE Infusion Acetaminophen 1,000 mg in 100 mls @ 400 mls/hr 05/05/24 11:16 05/05/24 11:55 Ofirmev IV 05/05/24 11:30 Infused ONCE ONE Infusion Metoclopramide HCl 10 mg 05/05/24 09:27 05/05/24 10:09 Metoclopramide Hcl 10 Mg/2 Ml Vial IVPUSH 05/05/24 09:28 10 mg ONCE ONE Administration Morphine Sulfate 2 mg 05/05/24 09:27 05/05/24 10:09 Morphine Sulfate 2 Mg/Ml Cartridge IVPUSH 05/05/24 09:28 2 mg ONCE ONE Administration Protocol Morphine Sulfate 4 mg 05/05/24 11:16 05/05/24 12:23 Morphine Sulfate 4 Mg/Ml Cartridge IVPUSH 05/05/24 11:17 4 mg ONCE ONE Administration Protocol Medical Decision Making Medical Decision Making MDM Narrative: 23 yo male with PMH of ETOH use disorder, IBS, asthma, hyperthyroidism, depression and anxiety here with severe headaches and sore throat - he is afebrile and took no medications at home he is photophobic and has nausea at this time I suspect more migrainous vs viral syndrome will obtain CT head for ICH given onset 3am and states this is more painful than usual he has no focal deficits, IV medications for supportive care. Afebrile and given abrupt onset doubt meningitis he is moving around and has no meningeal signs. Differential Diagnosis Differential Diagnoses: The differential diagnosis associated with the presentation includes tension headaches, migraines, viral syndrome Admission/Observation Consideration of admission/observation: Escalation of care including admission/observation considered feels much better at this stable for DC tolerating PO Lab Data MDM Lab Attestation statement: I reviewed the patient's lab results. Labs: Lab Results 05/05/24 05/05/24 Range/Units 09:38 09:39 Influenza Type A (PCR) NEGATIVE (Negative) Influenza Type B (PCR) NEGATIVE (Negative) RSV RNA Qual (PCR) NEGATIVE (Negative) SARS-CoV-2 RNA (RT-PCR) NEGATIVE (Negative) S. pyogenes GrpA KAREN Negative (Negative) Independent Interpretation I performed an independent interpretation of an: CT Scan (normal ) Radiology Impression Discussion of test interpretation with radiology: I have reviewed the radiologist's reading. Independent Historian Clinical information obtained from an independent historian. History obtained from or confirmed by: Spouse External Record Review External record reviewed: Inpatient record and Outpatient record Prescription Management I considered prescription management with: Other Discharge Plan Discharge Clinical Impression: Acute headache Qualifiers: Headache type: unspecified Intractability: not intractable Qualified Code(s): R51.9 - Headache, unspecified Patient Disposition: Home, Self-Care Instructions: Acute Headache (ED) Additional Instructions: negative for flu, covid, rsv, strep CT head normal rest and stay hydrated return for fevers, confusion, severe neck pain, or any other concerns Prescriptions: New cyclobenzaprine 10 mg tablet 10 mg PO TID PRN (Reason: muscle spasm) Qty: 20 0RF ondansetron 4 mg tablet,disintegrating 4 mg PO Q8H PRN (Reason: nausea and vomiting) Qty: 20 0RF No Action albuterol sulfate [Ventolin HFA] 90 mcg/actuation HFA aerosol inhaler 2 puff inhalation Q4-6H PRN (Reason: shortness of breath or wheezing) 30 Days Qty: 8.5 3RF nicotine 10 mg cartridge 10 mg inhalation QID PRN (Reason: smoking cessation) Qty: 168 1RF metoprolol succinate 25 mg tablet extended release 24 hr 12.5 mg PO BID 90 Days Qty: 90 0RF loratadine 10 mg tablet 10 mg PO DAILY 90 Days Qty: 90 3RF pramoxine [Proctofoam] 1 % foam 1 appl DC BID Qty: 15 0RF hydrocortisone [Proctosol HC] 2.5 % cream with perineal applicator 1 appl DC BID-QID PRN (Reason: hemorrhoids) 4 Days Qty: 30 0RF polyethylene glycol 3350 [Miralax] 17 gram powder in packet 17 g PO DAILY 14 Days Qty: 14 0RF triamcinolone acetonide 0.1 % ointment topical budesonide-formoterol [Symbicort] 160-4.5 mcg/actuation HFA aerosol inhaler 2 puff inhalation BID ashwagandha extract 500 mg capsule PO bupropion HCl 75 mg tablet 75 mg PO BID 30 Days Qty: 60 1RF Stand Alone Forms: Work/School Release Print Language: [place] Citizen
[2024-05-05 10:25] LABS: Influenza A PCR NEGATIVE (Negative); Influenza B PCR NEGATIVE (Negative); Resp Syncy Virus RNA Qual PCR NEGATIVE (Negative); SARS COV2 PCR INHOUSE NEGATIVE (Negative)
[2024-05-05 11:05] VITALS: BP 107/51; PULSE 100; RESP 18; TEMP 36.8; O2SAT 97
[2024-05-05] MEDS: Acetaminophen 1,000 MG/100 ML PIGGYBACK 400 MG IV (11:39)
[2024-05-05] MEDS: Morphine Sulfate 4 MG/ML CARTRIDGE IVPUSH (12:23)
[2024-05-05 12:38] VITALS: BP 114/50; PULSE 96; RESP 16; TEMP 36.7; O2SAT 95
[2024-05-05 14:12] VITALS: BP 114/50; PULSE 96; RESP 16; TEMP 36.7; O2SAT 95
== END 2024-05-05 14:13 | disposition home or self-care (01) ==
PROVIDERS: Emergency Provider Emergency Medicine; PCP Family Medicine
DX: R51.9 Headache, unspecified (principal); J02.9 Acute pharyngitis, unspecified; R11.2 Nausea with vomiting, unspecified; F17.210 Nicotine dependence, cigarettes, uncomplicated; Z03.818 Encounter for observation for suspected exposure to other biological agents ruled out; Z79.899 Other long term (current) drug therapy
CPT/HCPCS: 0241U; 70450; 87651; 96361; 96374; 96375; 96376; 99284; 99285; J0131; J1200; J2270; J2765

== ENCOUNTER → 2024-05-05 11:16 | Outpatient (BNV) | payer OTHER, SELFPAY | PROVIDERS: Emergency Provider Emergency Medicine; PCP Family Medicine; Visit Provider Radiology Vascular & Interventional Radiology | DX: R51.9 Headache, unspecified (principal) | CPT/HCPCS: 70450 ==

== ENCOUNTER 2024-05-09 20:30 | Emergency (ER) | payer OTHER, SELFPAY ==
[2024-05-09 20:37] VITALS: BP 127/85; PULSE 102; RESP 20; TEMP 37; O2SAT 96; BMI 32.6
--- NOTE | 2024-05-09 20:41 | ED_ITS ---
HPI - General Adult General Chief complaint: Skin/Abscess/Foreign Body Stated complaint: abscess near tailbone Related Data Home Medications ?Medication ?Instructions ?Recorded ?Confirmed budesonide-formoterol HFA 160 2 puff inhalation BID 01/14/22 01/10/24 mcg-4.5 mcg/actuation aerosol inhaler (Symbicort) triamcinolone acetonide 0.1 % topical 07/19/22 01/10/24 topical ointment ashwagandha extract 500 mg capsule mg PO 01/10/24 01/10/24 Previous Rx's ?Medication ?Instructions ?Recorded hydrocortisone 2.5 % topical cream 1 appl NM BID-QID PRN hemorrhoids 11/02/23 with perineal applicator 4 days #30 grams (Proctosol HC) polyethylene glycol 3350 17 gram 17 g PO DAILY 14 days #14 ea 11/02/23 oral powder packet (Miralax) albuterol sulfate 90 mcg/actuation 2 puff inhalation Q4-6H PRN 01/17/24 aerosol inhaler (Ventolin HFA) shortness of breath or wheezing 30 days #8.5 grams nicotine 10 mg inhalation cartridge 10 mg inhalation QID PRN smoking 01/18/24 cessation #168 ea metoprolol succinate 25 mg 12.5 mg (1/2 x 25 mg) PO BID 90 01/19/24 tablet,extended release 24 hr days #90 tabs loratadine 10 mg tablet 10 mg PO DAILY 90 days #90 tabs 01/20/24 bupropion HCl 75 mg tablet 75 mg PO BID 30 days #60 tabs 04/10/24 pramoxine 1 % topical foam 1 appl NM BID #15 grams 04/20/24 (Proctofoam) cyclobenzaprine 10 mg tablet 10 mg PO TID PRN muscle spasm #20 05/05/24 tabs ondansetron 4 mg disintegrating 4 mg PO Q8H PRN nausea and 05/05/24 tablet vomiting #20 tabs doxycycline hyclate 100 mg tablet 100 mg PO BID #20 tabs 05/13/24 Allergies Allergy/AdvReac Type Severity Reaction Status Date / Time ibuprofen [IBUPROFEN] Allergy Intermediate ABD PAIN Verified 05/13/24 20:20 AND REFLUX aspirin [ASA] Allergy Swelling Verified 05/13/24 20:20 avocado Allergy Swelling Verified 05/13/24 20:20 banana Allergy Anaphylaxis Verified 05/13/24 20:20 gluten Allergy Abdominal Verified 05/13/24 20:20 Pain house dust Allergy Unknown Verified 05/13/24 20:20 lactose Allergy Abdominal Verified 05/13/24 20:20 Pain venlafaxine AdvReac Mild vomiting, Verified 05/13/24 20:20 disorintation seasonal Allergy Unknown unknown Uncoded 05/09/24 20:40 PMFSH Past Medical History Medical History Acid reflux Anxiety Depression Asthma Epidermal inclusion cyst Constipation Surgical History Hx of colonoscopy H/O endoscopy Family History Family History Mother Anxiety Depression Maternal Grandfather Substance abuse Maternal Grandmother Anxiety Depression Father Arthritis Social History Social History Household Members: Family Housing: House Alcohol intake: current Alcohol intake frequency: 3 or more drinks per day Alcohol type: beer Patient Tobacco Use Status: Current everyday Tobacco user Tobacco use type: Cigarette Cigarettes Per Day: 5 e-Cigarette/Vaping Use: Currently Using Substance Use Type: Marijuana service: No Current occupational status: employed 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 He reports that he has had a small lump there since he was a child but over the last couple of days the areas become more red and swollen. He reports that there is black pus draining from the area. There has been a 4 cm abscess to the area with some surrounding erythema Discharge Plan Discharge Clinical Impression: Abscess Patient Disposition: Left Without Being Seen Discharge Date/Time: 05/10/24 08:11
[2024-05-10 04:10] VITALS: BP 112/76; PULSE 82; RESP 16; TEMP 36.6; O2SAT 95
--- OUTSIDE RECORDS SUMMARY | 2024-05-10 06:57 | XMS_ITS | Encounter Summary ---
Author Organization [facility] Address [address] [place] [address] Care Team Providers Care Blasting Contract Miner Name Role Phone Inna Giron Primary Care Provider [phone] Senia Tovar MD Primary Care Provider [phone] Reason for Visit * Reason Comments Medication Refill Encounter Details Date Type Department Care Team (Late st Contact Info) Description 05/15/2020 Refill [facility] Gastroenterology, [place] [address] [place] [address] Nohelia Medrano MD [address] [place] [phone] Generalized abdominal pain Social History Tobacco Use [...] generalized documented in this encounter Care Teams Blasting Contract Miner Relationship Specialty Start Date End Date Inna Giron PA [address] [place] [address] [address] [place] [address] PCP - General Physician Slubber Machine Operator 04/01/20 07/06/21 Senia Tovar MD [address] [place] [address] [address] [place] [address] PCP - General General Pediatrics 07/07/21 documented as of this encounter
--- OUTSIDE RECORDS SUMMARY | 2024-05-10 06:57 | XMS_ITS | Encounter Summary ---
Author Organization [address] [address] Care Team Providers Care Extractor Operator Helper Name Role Phone Senia Tovar MD Primary Care Provider [phone] Reason for Visit * Reason Comments Medication Refill Encounter Details Date Type Department Care Team ([facility] st Contact Info) Description 11/27/2021 Refill [facility] [address] [address] Nohelia Medrano MD [address] [place] [phone] Generalized abdominal pain Social History Tobacco Use [...] did not know. He was very confused. Whiskey Proof Reader read him the office visit plan to [...] generalized documented in this encounter Care Teams Extractor Operator Helper Relationship Specialty Start Date End Date Senia Tovar MD [address] [place] [address] [place] [address] PCP - General General Pediatrics 07/07/21 documented as of this encounter
--- OUTSIDE RECORDS SUMMARY | 2024-05-10 06:57 | XMS_ITS | Encounter Summary ---
Author Organization [facility] Address [address] [place] [address] Care Team Providers Care Rnp Name Role Phone Inna Giron Primary Care Provider [phone] Senia Tovar MD Primary Care Provider [phone] Reason for Visit * Reason Comments Medication Refill Encounter Details Date Type Department Care Team (Late st Contact Info) Description 04/05/2021 Refill [facility] Gastroenterology, [place] [address] [place] [address] Nohelia Medrano MD [address] [place] [address] Generalized abdominal pain Social History Tobacco Use [...] generalized documented in this encounter Care Teams Rnp Relationship Specialty Start Date End Date Inna Giron PA [address] [place] [address] [place] [address] PCP - General Physician Document Control Associate 04/01/20 07/06/21 Senia Tovar MD [address] [place] [address] [place] [address] PCP - General General Pediatrics 07/07/21 documented as of this encounter
--- OUTSIDE RECORDS SUMMARY | 2024-05-10 06:57 | XMS_ITS | Encounter Summary ---
Author Organization [facility] Address [address] [place] [address] Care Team Providers Care Camera Mechanic Name Role Phone Senia Tovar MD Primary Care Provider [phone] Reason for Visit * Reason Comments Medication Refill Encounter Details Date Type Department Care Team (Late st Contact Info) Description 07/26/2021 Refill [facility] Gastroenterology, [place] [address] [place] [address] Nohelia Medrano MD [address] [place] [address] Generalized abdominal pain Social History Tobacco Use [...] generalized documented in this encounter Care Teams Camera Mechanic Relationship Specialty Start Date End Date Senia Tovar MD [address] [place] [address] [place] [address] PCP - General General Pediatrics 07/07/21 documented as of this encounter
--- OUTSIDE RECORDS SUMMARY | 2024-05-10 06:58 | XMS_ITS | Encounter Summary ---
Author Organization [facility] Address [address] [place] [address] Care Team Providers Care Assistant Administrator Name Role Phone Inna Giron Primary Care Provider [phone] Senia Tovar MD Primary Care Provider [phone] Reason for Visit * Reason Comments Medication Refill Encounter Details Date Type Department Care Team (Late st Contact Info) Description 06/20/2020 Refill [facility] Gastroenterology, [place] [address] [place] [address] Nohelia Medrano MD [address] [place] [address] Generalized abdominal pain Social History Tobacco Use [...] generalized documented in this encounter Care Teams Assistant Administrator Relationship Specialty Start Date End Date Inna Giron PA [address] [place] [address] [address] [place] [address] PCP - General Physician Waxer Tender 04/01/20 07/06/21 Senia Tovar MD [address] [place] [address] [place] [address] PCP - General General Pediatrics 07/07/21 documented as of this encounter
--- OUTSIDE RECORDS SUMMARY | 2024-05-10 06:58 | XMS_ITS | Encounter Summary ---
Author Organization [facility] Address [address] [place] [address] Care Team Providers Care Agronomy Location Manager Name Role Phone Inna Giron Primary Care Provider Senia Tovar MD Primary Care Provider [phone] Reason for Visit * Reason Comments Medication Refill Encounter Details Date Type Department Care Team (Late st Contact Info) Description 11/11/2020 Refill [facility] Gastroenterology, [place] [address] [place] [address] Nohelia Medrano MD [address] [place] [address] Generalized abdominal pain Social History Tobacco Use [...] generalized documented in this encounter Care Teams Agronomy Location Manager Relationship Specialty Start Date End Date Inna Giron PA [address] [place] [address] [address] [place] [address] PCP - General Physician Books Binder 04/01/20 07/06/21 Senia Tovar MD [address] [place] [address] [place] [address] PCP - General General Pediatrics 07/07/21 documented as of this encounter
--- OUTSIDE RECORDS SUMMARY | 2024-05-10 06:58 | XMS_ITS | Clinical Summary ---
Author Organization [facility] Address [address] [place] [address] Care Team Providers Care Watershed Program Manager Name Role Phone Senia Tovar MD Primary Care Provider [phone] Source Comments Please note that some or [...] so, obtain the minor's consent prior to disclosure.[facility] Allergies Active Allergy Reactions Criticality Noted [...] (06/30/2021): Added automatically from request for surgery [id number] Family History Medical History Relation Name Comments [...] patient's age to complete this topic Insurance [facility] Care Teams Watershed Program Manager Relationship Specialty Start Date End Date Senia Tovar MD [address] [place] [address] [address] [place], [place] [id number] PCP - General General Pediatrics 07/07/21
--- OUTSIDE RECORDS SUMMARY | 2024-05-10 06:58 | XMS_ITS | Encounter Summary ---
Author Organization [facility] Address [address] [place] [address] Care Team Providers Care Suspender Cutter Name Role Phone Senia Tovar MD Primary Care Provider [phone] Reason for Visit * Reason Comments Medication Refill Encounter Details Date Type Department Care Team ([facility] st Contact Info) Description 09/09/2021 Refill [facility] Gastroenterology[address] [address] Nohelia Medrano MD [address] [place] [address] Generalized abdominal pain Social History Tobacco Use [...] generalized documented in this encounter Care Teams Suspender Cutter Relationship Specialty Start Date End Date Senia Tovar MD [address] [place] [address] [address], [place] [address] PCP - General General Pediatrics 07/07/21 documented as of this encounter
--- OUTSIDE RECORDS SUMMARY | 2024-05-10 06:58 | XMS_ITS | Encounter Summary ---
Author Organization [facility] Address [address] [place] [address] Care Team Providers Care Manager Video Name Role Phone Inna Giron Primary Care Provider [phone] Senia Tovar MD Primary Care Provider [phone] Reason for Visit * Reason Comments Medication Refill Encounter Details Date Type Department Care Team (Late st Contact Info) Description 09/02/2020 Refill [facility] Gastroenterology, [place] [address] [place] [address] Nohelia Medrano MD [address] [place] [address] Generalized abdominal pain Social History Tobacco Use [...] generalized documented in this encounter Care Teams Manager Video Relationship Specialty Start Date End Date Inna Giron PA [address] [place] [address] [address] [place] [address] PCP - General Physician Foil Operator 04/01/20 07/06/21 Senia Tovar MD [address] [place] [address] [place] [address] PCP - General General Pediatrics 07/07/21 documented as of this encounter
--- OUTSIDE RECORDS SUMMARY | 2024-05-10 06:58 | XMS_ITS | Encounter Summary ---
Author Organization [facility] Address [address] [place] [address] Care Team Providers Care Railway Signalling Engineer Name Role Phone Inna Giron Primary Care Provider [phone] Senia Tovar MD Primary Care Provider [phone] Reason for Visit * Reason Comments Medication Refill Encounter Details Date Type Department Care Team (Late st Contact Info) Description 12/10/2020 [facility] [address] [place] [address] Nohelia Medrano MD [address] [place] [address] Generalized abdominal pain Social History Tobacco Use [...] generalized documented in this encounter Care Teams Railway Signalling Engineer Relationship Specialty Start Date End Date Inna Giron PA [address] [place] [address] [address] Jillian [place] [address] PCP - General Physician Strip Feeder 04/01/20 07/06/21 Senia Tovar MD [address] [place] [address] [address] Jillian [place] [address] PCP - General General Pediatrics 07/07/21 documented as of this encounter
--- OUTSIDE RECORDS SUMMARY | 2024-05-10 06:58 | XMS_ITS | Encounter Summary ---
Author Organization [facility] Address [address] [place] [address] Care Team Providers Care Chemist Inorganic Name Role Phone Senia Tovar MD Primary Care Provider [phone] Reason for Visit * Reason Comments Medication Refill Encounter Details Date Type Department Care Team (Late st Contact Info) Description 11/30/2021 Refill [facility] Gastroenterology, [place] [address] [place] [address] Nohelia Medrano MD [address] [place] [phone] Generalized abdominal pain Social History Tobacco Use [...] generalized documented in this encounter Care Teams Chemist Inorganic Relationship Specialty Start Date End Date Senia Tovar MD [address] [place] [address] [place] [address] PCP - General General Pediatrics 07/07/21 documented as of this encounter
--- OUTSIDE RECORDS SUMMARY | 2024-05-10 06:58 | XMS_ITS | Encounter Summary ---
Author Organization [facility] Address [address] [place] [address] Care Team Providers Care Tank Pumper Name Role Phone Inna Giron Primary Care Provider [phone] Senia Tovar MD Primary Care Provider [phone] Reason for Visit * Reason Comments Medication Refill Encounter Details Date Type Department Care Team (Late st Contact Info) Description 10/08/2020 Refill [facility] Gastroenterology, [place] [address] [place] [address] Nohelia Medrano MD [address] [place] [address] Generalized abdominal pain Social History Tobacco Use [...] generalized documented in this encounter Care Teams Tank Pumper Relationship Specialty Start Date End Date Inna Giron PA [address] [place] [address] [place] [address] PCP - General Physician Health Support Specialist 04/01/20 07/06/21 Senia Tovar MD [address] [place] [address] [place] [address] PCP - General General Pediatrics 07/07/21 documented as of this encounter
--- OUTSIDE RECORDS SUMMARY | 2024-05-10 06:58 | XMS_ITS | Encounter Summary ---
Author Organization [facility] Address [address] [place] [address] Care Team Providers Care Bioinformatics Scientist Name Role Phone Inna Giron Primary Care Provider [phone] Senia Tovar MD Primary Care Provider [phone] Reason for Visit * Reason Comments Medication Refill Encounter Details Date Type Department Care Team (Late st Contact Info) Description 07/03/2020 Refill [facility] Gastroenterology, [place] [address] [place] [address] Nohelia Medrano MD [address] [place] [address] Generalized abdominal pain Social History Tobacco Use [...] generalized documented in this encounter Care Teams Bioinformatics Scientist Relationship Specialty Start Date End Date Inna Giron PA [address] [place] [address] [place] [address] PCP - General Physician Print Inspector 04/01/20 07/06/21 Senia Tovar MD [address] [place] [address] [place] [address] PCP - General General Pediatrics 07/07/21 documented as of this encounter
== END 2024-05-10 08:11 | disposition left against medical advice (07) ==
PROVIDERS: Emergency Provider Emergency Medicine Emergency Medical Services; PCP Family Medicine
DX: L02.212 Cutaneous abscess of back [any part, except buttock and flank] (principal); Z79.899 Other long term (current) drug therapy; F17.210 Nicotine dependence, cigarettes, uncomplicated
CPT/HCPCS: 99281; 99282

== ENCOUNTER 2024-05-13 19:56 | Emergency (ER) | payer OTHER, SELFPAY ==
[2024-05-13 20:20] VITALS: BP 138/77; PULSE 114; RESP 16; TEMP 36.8; O2SAT 96; BMI 32.3
--- NOTE | 2024-05-13 20:20 | ED_ITS ---
HPI - Skin/Abscess/Foreign Bdy General Chief complaint: Skin/Abscess/Foreign Body Stated complaint: burst ulcer? on spine in pain Time Seen by Provider: 05/13/24 21:46 Source: patient Mode of arrival: ambulatory Limitations: no limitations History of Present Illness ED Provider: HPI narrative: Patient's history of cyst in the lower back for many years noted increase in size with pus discharge for last few days patient's came here on 05/09 to be seen but left without being seen Related Data Home Medications ?Medication ?Instructions ?Recorded ?Confirmed budesonide-formoterol HFA 160 2 puff inhalation BID 01/14/22 01/10/24 mcg-4.5 mcg/actuation aerosol inhaler (Symbicort) triamcinolone acetonide 0.1 % topical 07/19/22 01/10/24 topical ointment ashwagandha extract 500 mg capsule mg PO 01/10/24 01/10/24 Previous Rx's ?Medication ?Instructions ?Recorded hydrocortisone 2.5 % topical cream 1 appl AR BID-QID PRN hemorrhoids 11/02/23 with perineal applicator 4 days #30 grams (Proctosol HC) polyethylene glycol 3350 17 gram 17 g PO DAILY 14 days #14 ea 11/02/23 oral powder packet (Miralax) albuterol sulfate 90 mcg/actuation 2 puff inhalation Q4-6H PRN 01/17/24 aerosol inhaler (Ventolin HFA) shortness of breath or wheezing 30 days #8.5 grams nicotine 10 mg inhalation cartridge 10 mg inhalation QID PRN smoking 01/18/24 cessation #168 ea metoprolol succinate 25 mg 12.5 mg (1/2 x 25 mg) PO BID 90 01/19/24 tablet,extended release 24 hr days #90 tabs loratadine 10 mg tablet 10 mg PO DAILY 90 days #90 tabs 01/20/24 bupropion HCl 75 mg tablet 75 mg PO BID 30 days #60 tabs 04/10/24 pramoxine 1 % topical foam 1 appl AR BID #15 grams 04/20/24 (Proctofoam) cyclobenzaprine 10 mg tablet 10 mg PO TID PRN muscle spasm #20 05/05/24 tabs ondansetron 4 mg disintegrating 4 mg PO Q8H PRN nausea and 05/05/24 tablet vomiting #20 tabs doxycycline hyclate 100 mg tablet 100 mg PO BID #20 tabs 05/13/24 Allergies Allergy/AdvReac Type Severity Reaction Status Date / Time ibuprofen [IBUPROFEN] Allergy Intermediate ABD PAIN Verified 05/13/24 20:20 AND REFLUX aspirin [ASA] Allergy Swelling Verified 05/13/24 20:20 avocado Allergy Swelling Verified 05/13/24 20:20 banana Allergy Anaphylaxis Verified 05/13/24 20:20 gluten Allergy Abdominal Verified 05/13/24 20:20 Pain house dust Allergy Unknown Verified 05/13/24 20:20 lactose Allergy Abdominal Verified 05/13/24 20:20 Pain venlafaxine AdvReac Mild vomiting, Verified 05/13/24 20:20 disorintation seasonal Allergy Unknown unknown Uncoded 05/09/24 20:40 Review of Systems 2 Review of Systems: Yes all other systems are reviewed and are negative PMFSH Past Medical History Medical History Acid reflux Anxiety Depression Asthma Epidermal inclusion cyst Constipation Surgical History Hx of colonoscopy H/O endoscopy Family History Family History Mother Anxiety Depression Maternal Grandfather Substance abuse Maternal Grandmother Anxiety Depression Father Arthritis Social History Social History Household Members: Family Housing: House Alcohol intake: current Alcohol intake frequency: 3 or more drinks per day Alcohol type: beer Patient Tobacco Use Status: Current everyday Tobacco user Tobacco use type: Cigarette Cigarettes Per Day: 5 Smoked in Last 30 Days: Yes e-Cigarette/Vaping Use: Currently Using Use of substances other than those prescribed or required for medical reasons: No Substance Use Type: Marijuana Any prior treatment program specific to substance use: No Advance Directives: No Advance Directives Information Provided: Yes service: No Current occupational status: employed 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 Oriented X3. No acute distress. ENT: Pharynx normal. Oral Mucosa moist Neck: Normal inspection. Neck supple. CVS: Normal heart rate and rhythm. Pulses normal. Respiratory: No respiratory distress. Equal air entry bilateral, no wheezing/rales/rhonchi Abd: soft, not tender Skin: Skin warm and dry. 2 x 2 cm abscess in midline at L3-L4 area which is draining Extremities: No lower extremity edema, no calf tenderness Neuro: Oriented X 3. Course Course Course Narrative: This is an RME performed by Shanthi Tran CNP: Additional HPI, ROS, PE not included below will be deferred to primary provider. Patient is a 23-year-old male who presents emergency department for evaluation, he reports he an abscess over his tailbone, reports 5 days ago with the area open, had active black drainage from the area. States that he continues to have occasional drainage, and some blood from the area. But states now scabbed over. Having severe pain, tried acetaminophen without any improvement. He states due to the pain he has been drinking alcohol daily 6 22ox beers daily to cope with the pain. Declines examination triage due to privacy concerns Medications Administered Discontinued Medications Generic Name Dose Route Start Last Admin Trade Name Freq PRN Reason Stop Dose Admin Doxycycline Monohydrate 100 mg 05/13/24 22:07 05/13/24 22:12 Doxycycline Monohydrate 100 Mg Capsule PO 05/13/24 22:08 100 mg ONCE ONE Administration Medical Decision Making Medical Decision Making [facility] Narrative: Patient has infected sebaceous cyst of the lower back which was drained and cyst was removed discharge patient home on doxycycline Lab Data [facility] Lab Attestation statement: I reviewed the patient's lab results. 05/13/24 20:40 05/13/24 20:40 Labs: Lab Results 05/13/24 Range/Units 20:40 WBC 8.1 (4.8-10.8) X10*3/uL RBC 5.20 (4.60-5.80) X10*6/uL Hgb 14.4 (14.0-18.0) g/dl Hct 42.3 (42.0-52.0) % MCV 81.3 (80.0-98.0) fL MCH 27.7 (27.0-33.0) pg MCHC 34.0 (31.0-36.0) g/dl RDW 13.2 (11.0-16.0) % Plt Count 332 (160-400) X10*3/uL MPV 8.8 L (9.4-12.4) fL Immature Gran % (Auto) 0.2 (0.0-0.4) % Neut % (Auto) 59.2 (45-73) % Lymph % (Auto) 28.2 (20-40) % Mills % (Auto) 10.2 (2-11) % Eos % (Auto) 1.7 (0-4) % Baso % (Auto) 0.5 (0-2) % Lymph # (Auto) 2.3 (1.2-4.9) X10*3/uL Mills # (Auto) 0.8 (0.1-1.2) X10*3/uL Eos # (Auto) 0.1 (0.0-0.4) X10*3/uL Baso # (Auto) 0.0 (0.0-0.2) X10*3/uL Abs Immat Gran (auto) 0.02 (0.00-0.03) X10*3/uL Absolute Neuts (auto) 4.8 (2.0-8.3) x10*3/uL Absolute Nucleated RBC 0.000 (0.0-0.012) X10*3/uL Nucleated RBC % (auto) 0.0 (0.0-0.2) /100WBC Sodium 141 (135-145) mmol/L Potassium 4.6 (3.3-5.1) mmol/L Chloride 106 (96-108) mmol/L Carbon Dioxide 26 (22-29) mmol/L Anion Gap 14 (12-20) BUN 16 (9-16) mg/dL Creatinine 1.00 (0.5-1.4) mg/dL Estim Creat Clear Calc 115.0 Estimated GFR > 60 Random Glucose 74 (60-115) mg/dL Calcium 9.9 (8.4-10.2) mg/dL Total Bilirubin 0.2 (0.0-1.0) mg/dL AST 25 (5-37) U/L ALT 29 (0-40) U/L Alkaline Phosphatase 97 (39-117) U/L Total Protein 8.4 H (6.5-8.0) g/dL Albumin 4.7 (3.5-5.0) g/dL Procedures Abscess I/D Site: back Local Anesthetic: lidocaine 1% Amount of anesthesia used (mL): 2 Technique: incised with blade Amount of fluid expressed (mL): 2 Sent for culture/gram staining?: No Irrigation: No Packing used?: none Discharge Plan Discharge Clinical Impression: Infected sebaceous cyst Patient Disposition: Home, Self-Care Instructions: Abscess Incision and Drainage (DC) Additional Instructions: Local care as advised Take antibiotic as prescribed Prescriptions: New doxycycline hyclate 100 mg tablet 100 mg PO BID Qty: 20 0RF No Action albuterol sulfate [Ventolin HFA] 90 mcg/actuation HFA aerosol inhaler 2 puff inhalation Q4-6H PRN (Reason: shortness of breath or wheezing) 30 Days Qty: 8.5 3RF nicotine 10 mg cartridge 10 mg inhalation QID PRN (Reason: smoking cessation) Qty: 168 1RF metoprolol succinate 25 mg tablet extended release 24 hr 12.5 mg PO BID 90 Days Qty: 90 0RF loratadine 10 mg tablet 10 mg PO DAILY 90 Days Qty: 90 3RF cyclobenzaprine 10 mg tablet 10 mg PO TID PRN (Reason: muscle spasm) Qty: 20 0RF ondansetron 4 mg tablet,disintegrating 4 mg PO Q8H PRN (Reason: nausea and vomiting) Qty: 20 0RF pramoxine [Proctofoam] 1 % foam 1 appl AR BID Qty: 15 0RF hydrocortisone [Proctosol HC] 2.5 % cream with perineal applicator 1 appl AR BID-QID PRN (Reason: hemorrhoids) 4 Days Qty: 30 0RF polyethylene glycol 3350 [Miralax] 17 gram powder in packet 17 g PO DAILY 14 Days Qty: 14 0RF triamcinolone acetonide 0.1 % ointment topical budesonide-formoterol [Symbicort] 160-4.5 mcg/actuation HFA aerosol inhaler 2 puff inhalation BID ashwagandha extract 500 mg capsule PO bupropion HCl 75 mg tablet 75 mg PO BID 30 Days Qty: 60 1RF Print Language: Sinhala
[2024-05-13 20:46] LABS: MANUAL DIFF FLAG NO
[2024-05-13 20:47] LABS: Basophils Percent Auto 0.5 % (0-2); Eosinophils Absolute Auto 0.1 X10*3/uL (0.0-0.4); Eosinophils Percent Auto 1.7 % (0-4); Hematocrit 42.3 % (42.0-52.0); Hemoglobin 14.4 g/dl (14.0-18.0); Imm Gran Abs Auto 0.02 X10*3/uL (0.00-0.03); Imm Gran Pct Auto 0.2 % (0.0-0.4); Lymphocytes Absolute Auto 2.3 X10*3/uL (1.2-4.9); Lymphocytes Percent Auto 28.2 % (20-40); Mean Corpuscular Hemoglobin 27.7 pg (27.0-33.0); Mean Corpuscular Volume 81.3 fL (80.0-98.0); Mean Platelet Volume 8.8 fL (9.4-12.4); Monocytes Absolute Auto 0.8 X10*3/uL (0.1-1.2); Monocytes Percent Auto 10.2 % (2-11); Neutrophils Absolute Auto 4.8 x10*3/uL (2.0-8.3); Neutrophils Percent Auto 59.2 % (45-73); Platelet Count 332 X10*3/uL (160-400); Red Cell Distribution Width 13.2 % (11.0-16.0); White Blood Count 8.1 X10*3/uL (4.8-10.8)
[2024-05-13 21:03] LABS: Alanine Aminotransferase 29 U/L (0-40); Albumin Level 4.7 g/dL (3.5-5.0); Alkaline Phosphatase 97 U/L (39-117); Anion Gap 14 (12-20); Aspartate Amino Transferase 25 U/L (5-37); Bilirubin Total 0.2 mg/dL (0.0-1.0); Blood Urea Nitrogen 16 mg/dL (9-16); Calcium 9.9 mg/dL (8.4-10.2); Carbon Dioxide 26 mmol/L (22-29); Chloride 106 mmol/L (96-108); Estimated Glomerular Filt Rate > 60; Glucose Random 74 mg/dL (60-115); Potassium 4.6 mmol/L (3.3-5.1); Sodium 141 mmol/L (135-145); Total Protein 8.4 g/dL (6.5-8.0)
--- NOTE | 2024-05-13 22:07 | PC.NURSE ---
pt has a appointment with comprehensive care for his drinking addiction.
[2024-05-13] MEDS: Doxycycline Monohydrate 100 MG CAPSULE PO (22:12)
[2024-05-13 22:23] VITALS: BP 138/77; PULSE 114; RESP 16; TEMP 36.8; O2SAT 96
== END 2024-05-13 22:25 | disposition home or self-care (01) ==
PROVIDERS: Nurse Practitioner Family; Emergency Provider Internal Medicine
DX: L72.3 Sebaceous cyst (principal); F17.210 Nicotine dependence, cigarettes, uncomplicated; Z79.899 Other long term (current) drug therapy
CPT/HCPCS: 10060; 36415; 80053; 85025; 99284

== ENCOUNTER 2024-06-18 13:50 | Outpatient (AMB) | payer OTHER, SELFPAY ==
--- NOTE | 2024-06-18 13:59 | A.OFFPC_ITS ---
Vital Signs 06/18/24 14:10 Height 5 ft 4 in Weight 185 lb 2 oz BMI 31.8 BP 120/76 Blood Pressure Location Lt brachial Position Sitting Respiration 16 Pulse 75 Pulse Source Pulse Oximeter Temp 98.2 F Temp Source Oral Pulse Oximetry (%) 96 Oxygen Delivery Method Room Air Intake Visit Reasons: ed follow up [facility]/Removal of cyst /FMLA Intake Note: patient is scheduled for ed discharge and fmla paperwork Photonics Technician Required: No Allergies ibuprofen [IBUPROFEN] Allergy (Intermediate, Verified 06/18/24 14:06) ABD PAIN AND REFLUX aspirin [ASA] Allergy (Verified 06/18/24 14:06) Swelling avocado Allergy (Verified 06/18/24 14:06) Swelling banana Allergy (Verified 06/18/24 14:06) Anaphylaxis gluten Allergy (Verified 06/18/24 14:06) Abdominal Pain house dust Allergy (Verified 06/18/24 14:06) Unknown lactose Allergy (Verified 06/18/24 14:06) Abdominal Pain venlafaxine Adverse Reaction (Mild, Verified 06/18/24 14:06) vomiting, disorintation seasonal Allergy (Unknown, Uncoded 05/09/24 20:40) unknown Tobacco use date assessed: 08/05/23 Dental Screening Dental Screen Date: 05/09/23 HPI ed follow up [facility]/Removal of cyst /FMLA HPI Details 24 y/o male presents today for FMLA kelsey rwork. Recent ED visit 06/12/24 for abd. pain, diarrhea. Differential diagnoses included: alcoholic gastritis, panceratitis. Was prescribed dicyclomine and on[facility]ansetron. [facility] Medical History Acid reflux Anxiety Depression Asthma Epidermal inclusion cyst Constipation Surgical History Hx of colonoscopy H/O endoscopy Family History Mother Anxiety Depression Maternal Grandfather Substance abuse Maternal Grandmother Anxiety Depression Father Arthritis Social History Household Members: Family Housing: House Alcohol intake: current Alcohol intake frequency: 3 or more drinks per day Alcohol type: beer Patient Tobacco Use Status: Current everyday Tobacco user Tobacco use type: Cigarette Cigarettes Per Day: 5 e-Cigarette/Vaping Use: Currently Using Substance Use Type: Marijuana service: No Current occupational status: employed 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 Sexual orientation: Did not discuss Cognitive needs: No Hearing needs: No Vision needs: No Questionnaire Thrive Questionnaire Date Thrive assessed: 04/10/24 I am a: Patient What is your living situation today?: I have a steady place to live Within the past 12 months, did the food you bought not last and you didn't have the money to get more?: Never true Within the past 12 months, did you worry whether your food would run out before you got money to buy more?: Never true Do you have trouble paying for medicines?: I choose not to answer this question Do you have trouble getting transportation to medical appointments?: Yes Do you have trouble paying your heating and electricity bill?: No Do you have trouble taking care of your child, family member or friend?: I choose not to answer this question Do you have trouble with day-to-day activities such as bathing, preparing meals, shopping, managing finances, etc.?: No Are you currently unemployed and looking for a job?: No Are you interested in more education?: I choose not to answer this question Please select the resources that you would like help with: Transportation Currently or been in a relationship where the following occur: I choose not to answer THRIVE Score: 1 PAULA-7 AMB Questionnaire PAULA-7 Date PAULA - 7 assessed: 04/10/24 Source: Developed by Drs. Ricky Jennings, Laura Giron, Khoa Steiner and colleagues, with an educational claude from [employer]. Review of Systems Const Denies chills, Denies fatigue, Denies fever(s), Denies headache(s) and Denies w eakness ENT Denies dizziness and Denies headache(s) Card Denies dyspnea Resp Denies cough, Denies dyspnea, Denies wheezing and Denies other (shortness of breath) Musc Denies numbness and Denies tingling Neuro Denies dizziness, Denies headache(s), Denies numbness, Denies tingling and Denies weakness Psych Denies anxiety and Denies depression Endo Denies fatigue Aller/Immun Denies wheezing Physical exam (Primary Care) Vital Signs: Last Vital Signs Temp 98.2 F 06/18/24 14:10 Pulse 75 06/18/24 14:10 Resp 16 06/18/24 14:10 BP 120/76 06/18/24 14:10 Pulse Ox 96 06/18/24 14:10 Oxygen Delivery Method Room Air 06/18/24 14:10 BMI result Body Mass Index 31.8 Tobacco/Smoking Status: Tobacco use Status Tobacco use date assessed 08/05/23 06/18/24 14:00 Patient Tobacco Use Status Current everyday Tobacco 06/18/24 14:00 Tobacco use type Cigarette 06/18/24 14:00 e-Cigarette/Vaping Use Currently Using 06/18/24 14:00 Thrive Assessment: Date of Thrive Assessment Date Thrive assessed 04/10/24 06/18/24 14:00 Currently or been in a relationship where the following occur: I choose not to answer Const General: well developed; No acute distress Nutritional Appearance: well nourished Orientation/consciousness: patient oriented x3 HENMT Head: Yes normocephalic and Yes atraumatic Eyes General: appearance normal, both eyes and all related structures Pupils: Equal, round and reactive pupils present EOM: EOMs intact bilaterally Resp Effort & Inspection: normal respiratory effort Neuro General: patient oriented x3 and gait normal Cranial nerves: Yes Equal, round and reactive pupils present Psych Affect: normal affect Coding Level of Care Code Est Pt Level 3 (86398) Diagnoses Abdominal pain R10.9 Alcohol use disorder F10.90 Alcoholic gastritis K29.20 Assessment & Plan Assessment & Plan (1) Abdominal pain: Code(s): R10.9 - Unspecified abdominal pain Category: Medical Plan: Patien t?presents?for?FMLA?paperwork?secondary?to?alcohol?use?disorder,?withdrawal?and? also?gastrointestinal?symptoms?from?gastritis?secondary?to?alcohol?use. Patient?went?to?the?emergency?department?06/16/19 25?for?abdominal?pain.??Diagnosed?with?gastritis?and?given?sucralfate?and?famoti dine. Patient?also?has?issue?with?constipation?and some?gastrointestinal?bleeding. He?has?an?appointment?in?August?with?gastroenterology. Will?have?patient?remain?out?of?work?and?filled?out?FMLA?paperwork?with?dates?of ?05/29/2024?to 08/26/2024. Will?follow-up?with?patient?towards?the?end?of?the?1st?week??August. Encouraged?good?hydration,?decreased?alcohol?with?a?goal?of?abstinence Use?famotidine?and?sucralfate?as?prescribed (2) Alcohol use disorder: Code(s): F10.90 - Alcohol use, unspecified, uncomplicated Category: Medical Plan: Ongoing?alcohol?use?disorder Patient?was?given?contact?information?for an?outpatient?alcohol?program?affiliated?with[facility] Encouraged?him?to?call?and?see?them Continue?working?on?decreased?alcohol?use. ?And?abstinence. (3) Alcoholic gastritis: Code(s): K29.20 - Alcoholic gastritis without bleeding Category: Medical Plan: Advised?patient?to?decrease?alcohol?use If?using?alcohol,?try?not?to?take?on?an?empty?stomach Follow-up?with?Gastroenterology?as?recommended
[2024-06-18 14:10] VITALS: BP 120/76; PULSE 75; RESP 16; TEMP 36.8; O2SAT 96; BMI 31.8
--- OUTSIDE RECORDS SUMMARY | 2024-06-18 15:36 | XMS_ITS | Encounter Summary ---
Author Organization [facility] Address [address] [place] [address] Care Team Providers Care Producer Arborist Manager Name Role Phone Inna Giron Primary Care Provider [phone] Senia Tovar MD Primary Care Provider [phone] Reason for Visit * Reason Comments Medication Refill Encounter Details Date Type Department Care Team (Late st Contact Info) Description 09/02/2020 Refill [facility] Gastroenterology, [place] [address] [place] [address] Nohelia Medrano MD [address] [place] [address] Generalized abdominal pain Social History Tobacco Use [...] generalized documented in this encounter Care Teams Producer Arborist Manager Relationship Specialty Start Date End Date Inna Giron PA [address] [place] [address] [address] [place] [address] PCP - General Physician Valve Inserter 04/01/20 07/06/21 Senia Tovar MD [address] [place] [address] [place] [address] PCP - General General Pediatrics 07/07/21 documented as of this encounter
--- OUTSIDE RECORDS SUMMARY | 2024-06-18 15:36 | XMS_ITS | Encounter Summary ---
Author Organization [facility] Address [address] [place] [address] Care Team Providers Care Merchandise Deliverer Name Role Phone Inna Giron Primary Care Provider [phone] Senia Tovar MD Primary Care Provider [phone] Reason for Visit * Reason Comments Medication Refill Encounter Details Date Type Department Care Team (Late st Contact Info) Description 07/03/2020 Refill [facility] Gastroenterology, [place] [address] [place] [address] Nohelia Medrano MD [address] [place] [address] Generalized abdominal pain Social History Tobacco Use [...] generalized documented in this encounter Care Teams Merchandise Deliverer Relationship Specialty Start Date End Date Inna Giron PA [address] [place] [address] [place] [address] PCP - General Physician Equipment Manager 04/01/20 07/06/21 Senia Tovar MD [address] [place] [address] [place] [address] PCP - General General Pediatrics 07/07/21 documented as of this encounter
--- OUTSIDE RECORDS SUMMARY | 2024-06-18 15:36 | XMS_ITS | Clinical Summary ---
Author Organization [facility] Address [address] [place] [address] Care Team Providers Care Hotel Services Supervisor Name Role Phone Senia Tovar MD Primary Care Provider [phone] Source Comments Please note that some or [...] so, obtain the minor's consent prior to disclosure.[facility] Allergies Active Allergy Reactions Criticality Noted [...] (06/30/2021): Added automatically from request for surgery [id number] Family History Medical History Relation Name Comments [...] patient's age to complete this topic Insurance [facility] PL[facility] Care Teams Hotel Services Supervisor Relationship Specialty Start Date End Date Senia Tovar MD [address] [place] [address] [address] [place], [place] [id number] PCP - General General Pediatrics 07/07/21
--- OUTSIDE RECORDS SUMMARY | 2024-06-18 15:36 | XMS_ITS | Encounter Summary ---
Author Organization [facility] Address [address] [place] [address] Care Team Providers Care Utility Driver Name Role Phone Inna Giron Primary Care Provider [phone] Senia Tovar MD Primary Care Provider [phone] Reason for Visit * Reason Comments Medication Refill Encounter Details Date Type Department Care Team (Late st Contact Info) Description 01/07/2021 Refill [facility] Gastroenterology, [place] [address] [place] [address] Nohelia Medrano MD [address] [place] [address] Generalized abdominal pain Social History Tobacco Use [...] generalized documented in this encounter Care Teams Utility Driver Relationship Specialty Start Date End Date Inna Giron PA [address] [place] [address] [address] [place] [address] PCP - General Physician Minute Clerk For Basic Traffic 04/01/20 07/06/21 Senia Tovar MD [address] [place] [address] [place] [address] PCP - General General Pediatrics 07/07/21 documented as of this encounter
--- OUTSIDE RECORDS SUMMARY | 2024-06-18 15:36 | XMS_ITS | Encounter Summary ---
Author Organization [facility] Address [address] [place] [address] Care Team Providers Care Client Relations Specialist Name Role Phone Senia Tovar MD Primary Care Provider [phone] Reason for Visit * Reason Comments Medication Refill Encounter Details Date Type Department Care Team (Late st Contact Info) Description 11/30/2021 Refill [facility] Gastroenterology, [place] [address] [place] [address] Nohelia Medrano MD [address] [place] [address] Generalized abdominal pain Social History Tobacco Use [...] generalized documented in this encounter Care Teams Client Relations Specialist Relationship Specialty Start Date End Date Senia Tovar MD [address] [place] [address] [place] [address] PCP - General General Pediatrics 07/07/21 documented as of this encounter
--- OUTSIDE RECORDS SUMMARY | 2024-06-18 15:36 | XMS_ITS | Encounter Summary ---
Author Organization [facility] Address [address] [place] [address] Care Team Providers Care Animal Control Supervisor Name Role Phone Inna Giron Primary Care Provider [phone] Senia Tovar MD Primary Care Provider [phone] Reason for Visit * Reason Comments Medication Refill Encounter Details Date Type Department Care Team (Late st Contact Info) Description 10/08/2020 Refill [facility] Gastroenterology, [place] [address] [place] [address] Nohelia Medrano MD [address] [place] [phone] Generalized abdominal pain Social History Tobacco Use [...] generalized documented in this encounter Care Teams Animal Control Supervisor Relationship Specialty Start Date End Date Inna Giron PA [address] [place] [address] [place] [address] PCP - General Physician Client Administrator 04/01/20 07/06/21 Senia Tovar MD [address] [place] [address] [place] [address] PCP - General General Pediatrics 07/07/21 documented as of this encounter
--- OUTSIDE RECORDS SUMMARY | 2024-06-18 15:36 | XMS_ITS | Encounter Summary ---
Author Organization [address] [address] Care Team Providers Care Hospital Receptionist Name Role Phone Senia Tovar MD Primary Care Provider [phone] Reason for Visit * Reason Comments Medication Refill Encounter Details Date Type Department Care Team ([facility] st Contact Info) Description 11/27/2021 Refill [facility] [address]astroenter[address] [phone] Nohelia Medrano MD [address] [place] [address] Generalized abdominal pain Social History Tobacco Use [...] did not know. He was very confused. Rn Lvn read him the office visit plan to [...] generalized documented in this encounter Care Teams Hospital Receptionist Relationship Specialty Start Date End Date Senia Tovar MD [address] [place] [address] [place] [address] PCP - General General Pediatrics 07/07/21 documented as of this encounter
--- OUTSIDE RECORDS SUMMARY | 2024-06-18 15:36 | XMS_ITS | Encounter Summary ---
Author Organization [facility] Address [address] [place] [address] Care Team Providers Care New Account Interviewer Name Role Phone Senia Tovar MD Primary Care Provider [phone] Reason for Visit * Reason Comments Medication Refill Encounter Details Date Type Department Care Team (Late st Contact Info) Description 07/26/2021 Refill [facility] Gastroenterology, [place] [address] [place] [address] Nohelia Medrano MD [address] [place] [address] Generalized abdominal pain Social History Tobacco Use [...] generalized documented in this encounter Care Teams New Account Interviewer Relationship Specialty Start Date End Date Senia Tovar MD [address] [place] [address] [place] [address] PCP - General General Pediatrics 07/07/21 documented as of this encounter
--- OUTSIDE RECORDS SUMMARY | 2024-06-18 15:36 | XMS_ITS | Encounter Summary ---
Author Organization [facility] Address [address] [place] [address] Care Team Providers Care Sports Apparel Internship Name Role Phone Inna Giron Primary Care Provider Senia Tovar MD Primary Care Provider [phone] Reason for Visit * Reason Comments Medication Refill Encounter Details Date Type Department Care Team (Late st Contact Info) Description 11/11/2020 Refill [facility] Gastroenterology, [place] [address] [place] [address] Nohelia Medrano MD [address] [place] [address] Generalized abdominal pain Social History Tobacco Use [...] generalized documented in this encounter Care Teams Sports Apparel Internship Relationship Specialty Start Date End Date Inna Giron PA [address] [place] [address] [address] [place] [address] PCP - General Physician Central Supply Assistant 04/01/20 07/06/21 Senia Tovar MD [address] [place] [address] [place] [address] PCP - General General Pediatrics 07/07/21 documented as of this encounter
--- OUTSIDE RECORDS SUMMARY | 2024-06-18 15:36 | XMS_ITS | Encounter Summary ---
Author Organization [facility] Address [address] [place] [address] Care Team Providers Care Medical Staff Services Manager Name Role Phone Inna Giron Primary Care Provider [phone] Senia Tovar MD Primary Care Provider [phone] Reason for Visit * Reason Comments Medication Refill Encounter Details Date Type Department Care Team (Late st Contact Info) Description 05/15/2020 Refill [facility] Gastroenterology, [place] [address] [place] [address] Nohelia Medrano MD [address] [place] [phone] Generalized abdominal pain Social History Tobacco Use [...] generalized documented in this encounter Care Teams Medical Staff Services Manager Relationship Specialty Start Date End Date Inna Giron PA [address] [place] [address] [address] [place] [address] PCP - General Physician Meat Trimmer 04/01/20 07/06/21 Senia Tovar MD [address] [place] [address] [address] [place] [address] PCP - General General Pediatrics 07/07/21 documented as of this encounter
--- OUTSIDE RECORDS SUMMARY | 2024-06-18 15:36 | XMS_ITS | Encounter Summary ---
Author Organization [facility] Address [address] [place] [address] Care Team Providers Care Real Estate Job Titles Name Role Phone Senia Tovar MD Primary Care Provider [phone] Reason for Visit * Reason Comments Medication Refill Encounter Details Date Type Department Care Team ([facility] st Contact Info) Description 09/09/[address] [facility] [address]astroenter[address] [address] Nohelia Medrano MD [address] [place] [phone] Generalized abdominal pain Social History Tobacco Use [...] generalized documented in this encounter Care Teams Real Estate Job Titles Relationship Specialty Start Date End Date Senia Tovar MD [address] [place] [address] [address] [place], [place] [address] PCP - General General Pediatrics 07/07/21 documented as of this encounter
--- OUTSIDE RECORDS SUMMARY | 2024-06-18 15:36 | XMS_ITS | Encounter Summary ---
Author Organization [facility] Address [address] [place] [address] Care Team Providers Care Burglar Alarm Installer Name Role Phone Inna Giron Primary Care Provider [phone] Senia Tovar MD Primary Care Provider [phone] Reason for Visit * Reason Comments Medication Refill Encounter Details Date Type Department Care Team (Late st Contact Info) Description 04/05/2021 Refill [facility] Gastroenterology, [place] [address] [place] [address] Nohelia Medrano MD [address] [place] [address] Generalized abdominal pain Social History Tobacco Use [...] generalized documented in this encounter Care Teams Burglar Alarm Installer Relationship Specialty Start Date End Date Inna Giron PA [address] [place] [address] [place] [address] PCP - General Physician Lockstitch Lining Maker 04/01/20 07/06/21 Seina Tovar MD [address] [place] [address] [place] [address] PCP - General General Pediatrics 07/07/21 documented as of this encounter
--- OUTSIDE RECORDS SUMMARY | 2024-06-18 15:36 | XMS_ITS | Encounter Summary ---
Author Organization [facility] Address [address] [place] [address] Care Team Providers Care Lacquer Sprayer Name Role Phone Inna Giron Primary Care Provider [phone] Senia Tovar MD Primary Care Provider [phone] Reason for Visit * Reason Comments Medication Refill Encounter Details Date Type Department Care Team (Late st Contact Info) Description 06/20/2020 Refill [facility] Gastroenterology, [place] [address] [place] [address] Nohelia Medrano MD [address] [place] [address] Generalized abdominal pain Social History Tobacco Use [...] generalized documented in this encounter Care Teams Lacquer Sprayer Relationship Specialty Start Date End Date Inna Giron PA [address] [place] [address] [address] [place] [address] PCP - General Physician Reed Man 04/01/20 07/06/21 Senia Tovar MD [address] [place] [address] [place] [address] PCP - General General Pediatrics 07/07/21 documented as of this encounter
--- OUTSIDE RECORDS SUMMARY | 2024-06-18 15:36 | XMS_ITS | Encounter Summary ---
Author Organization [facility] Address [address] [place] [address] Care Team Providers Care Law Instructor Name Role Phone Inna Giron Primary Care Provider [phone] Senia Tovar MD Primary Care Provider [phone] Reason for Visit * Reason Comments Medication Refill Encounter Details Date Type Department Care Team (Late st Contact Info) Description 12/10/2020 [facility] [address] [place] [address] Nohelia Medrano MD [address] [place] [address] Generalized abdominal pain Social History Tobacco Use [...] generalized documented in this encounter Care Teams Law Instructor Relationship Specialty Start Date End Date Inna Giron PA [address] [place] [address] [address] GREENE Jillian [place] [address] PCP - General Physician Engineering Librarian 04/01/20 07/06/21 Senia Tovar MD [address] [place] [address] [address] Jillian [place] [address] PCP - General General Pediatrics 07/07/21 documented as of this encounter
== END 2024-06-18 14:45 | disposition home or self-care (01) ==
LOC: HO.HMCFM 13:51
PROVIDERS: PCP Family Medicine; Visit Provider Family Medicine
DX: R10.9 Unspecified abdominal pain (principal); F10.90 Alcohol use, unspecified, uncomplicated; K29.20 Alcoholic gastritis without bleeding

== ENCOUNTER → 2024-06-18 13:50 | Outpatient (BNVA) | payer OTHER, SELFPAY | PROVIDERS: PCP Family Medicine; Visit Provider Family Medicine | DX: R10.9 Unspecified abdominal pain (principal); F10.939 Alcohol use, unspecified with withdrawal, unspecified; K29.20 Alcoholic gastritis without bleeding | CPT/HCPCS: 99212 ==

== ENCOUNTER 2024-06-27 15:49 | Outpatient (AMB) | payer OTHER, SELFPAY ==
--- NOTE | 2024-06-27 15:50 | A.OFFVIS_ITS ---
Vital Signs 06/27/24 15:56 Height 5 ft 4 in Weight 187 lb BMI 32.1 Pulse 93 Pulse Source Pulse Oximeter Pulse Oximetry (%) 98 Oxygen Delivery Method Room Air Intake Visit Reasons: Intake Allergies ibuprofen [IBUPROFEN] Allergy (Intermediate, Verified 06/27/24 15:56) ABD PAIN AND REFLUX aspirin [ASA] Allergy (Verified 06/27/24 15:56) Swelling avocado Allergy (Verified 06/27/24 15:56) Swelling banana Allergy (Verified 06/27/24 15:56) Anaphylaxis gluten Allergy (Verified 06/27/24 15:56) Abdominal Pain house dust Allergy (Verified 06/27/24 15:56) Unknown lactose Allergy (Verified 06/27/24 15:56) Abdominal Pain venlafaxine Adverse Reaction (Mild, Verified 06/27/24 15:56) vomiting, disorintation seasonal Allergy (Unknown, Uncoded 05/09/24 20:40) unknown HPI HPI Intake: Details: MAT intake alcohol use disorder was taking alcohol daily mixed beat boxes 3-6 16 oz 11.5% alcohol, beer 12 pk/week no drinks for 2 days ,no withdrawals lives with mother and brother no source income,laid off last month current PCP none no visit with PCP lately He had worked at [employer] Substance Abuse History alcohol as above,started age 15,stopped 03/2019-11/2019 due to abdominal pain, no diagnosis marijuana age 18 smoking 14 cigarettes denies benzo,heroin,fentanyl,oxy.cocaine tobacco 1 pk a day,no vaping Social history No domestic violence support parents no car home with mother and brother depression has had behavioral health providers medical conditons none denies legal history PFSH Medical History Acid reflux Anxiety Depression Asthma Epidermal inclusion cyst Constipation Surgical History Hx of colonoscopy H/O endoscopy Family History Mother Anxiety Depression Maternal Grandfather Substance abuse Maternal Grandmother Anxiety Depression Father Arthritis Social History Household Members: Family Housing: House Alcohol intake: current Alcohol intake frequency: 3 or more drinks per day Alcohol type: beer Patient Tobacco Use Status: Current everyday Tobacco user Tobacco use type: Cigarette Cigarettes Per Day: 5 e-Cigarette/Vaping Use: Currently Using Substance Use Type: Marijuana service: No Current occupational status: employed 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 Sexual orientation: Did not discuss Cognitive needs: No Hearing needs: No Vision needs: No Review of Systems Const All systems reviewed & are unremarkable except as noted in HPI and below Physical Exam Vital Signs: Last Vital Signs Pulse 93 06/27/24 15:56 Pulse Ox 98 06/27/24 15:56 Oxygen Delivery Method Room Air 06/27/24 15:56 BMI result Body Mass Index 32.1 Resp Effort & Inspection: normal respiratory effort Auscultation: clear to auscultation bilaterally Cardio Rate: regular rate GI Inspection: Yes normal to inspection Results AMB 14 Panel Urine Drug Screen Urine Marijuana (THC) Negative Last Edit by Anahi Andrew CMA on 06/27/24 16:15 Urine Cocaine Negative Last Edit by Anhai Andrew CMA on 06/27/24 16:15 Urine Morphine Negative Last Edit by Anahi Andrew CMA on 5 16:15 Urine Methamphetamine Negative Last Edit by Anahi Andrew CMA on 16:15 Urine Amphetamine Negative Last Edit by Anahi Andrew CMA on 06/27/24 16:15 Urine Benzodiazepine Negative Last Edit by Anahi Andrew CMA on 06/27/24 16:15 Urine Barbiturates Negative Last Edit by Anahi Andrew CMA on 06/27/24 16:15 Urine Methadone Negative Last Edit by Anahi Andrew CMA on 16:15 Urine Buprenorphine Negative Last Edit by Anahi Andrew CMA on 12/13 16:15 Urine Tricyclic Antidepressant Negative Last Edit by Anahi Andrew CMA on 06/27/24 16:15 Urine MDMA Negative Last Edit by Anahi Andrew CMA on 06/27/24 16 :15 Urine Oxycodone Negative Last Edit by Anahi Andrew CMA on 16:15 Urine Phencyclidine Negative Last Edit by Anahi Andrew CMA on 06/27/24 16:15 Urine Propoxyphene Negative Last Edit by Anahi Andrew CMA on 0 06/27/24 16:15 Results Reviewed Results Reviewed: Laboratory Last Values POC Urine Buprenorphine Negative 06/27/24 16:13 POC Urine Morphine Negative 06/27/24 16:13 POC Urine Oxycodone Negative 06/27/24 16:13 POC Urine Methadone Negative 06/27/24 16:13 POC Urine Propoxyphene Negative 06/27/24 16:13 POC Urine Barbiturates Negative 06/27/24 16:13 POC U Tricyclic Antidpr Negative 06/27/24 16:13 POC Urine PCP Negative 06/27/24 16:13 POC Ur Amphetamines Negative 06/27/24 16:13 POC Ur Methamphetamine Negative 06/27/24 16:13 POC Urine MDMA Negative 06/27/24 16:13 POC Ur Benzodiazepine Negative 06/27/24 16:13 POC Urine Cocaine Negative 06/27/24 16:13 POC Ur Marijuana (THC) Negative 06/27/24 16:13 Assessment & Plan Assessment & Plan (1) Alcohol use disorder: Comment: Denies SI or HI Not drinking today Screen neg other sub Code(s): F10.90 - Alcohol use, unspecified, uncomplicated Category: Medical Plan: Labs Naltrexone See in 3-4 weeks ?Naltrexone IM MVI Folic acid thiamine counseling set up [facility] Orders: Orders AMB 14 Panel Urine Drug Screen Today Z51.81 - Encounter for therapeutic drug level monitoring Prothrombin Time INR Today F10.90 - Alcohol use, unspecified, uncomplicated Liver Fibrosis Pnl Today F10.90 - Alcohol use, unspecified, uncomplicated Liver Panel Today F10.90 - Alcohol use, unspecified, uncomplicated Hepatitis B Surface Ab Qnt Today F10.90 - Alcohol use, unspecified, uncomplicated Hepatitis B Surface Antigen Today F10.90 - Alcohol use, unspecified, uncomplicated HIV Ab/Ag Today F10.90 - Alcohol use, unspecified, uncomplicated Hepatitis C Antibody Today F10.90 - Alcohol use, unspecified, uncomplicated Syphilis Screen Today F10.90 - Alcohol use, unspecified, uncomplicated T Spot TB Today F10.90 - Alcohol use, unspecified, uncomplicated Hepatitis A IgG Today F10.90 - Alcohol use, unspecified, uncomplicated Complete Blood Count Auto Diff Today F10.90 - Alcohol use, unspecified, uncomplicated Basic Metabolic Panel Today F10.90 - Alcohol use, unspecified, uncomplicated Medications: New naltrexone 50 mg PO DAILY 30 tabs 0RF 30 days Coding Level of Care Code New Pt Level 4 (63025) Diagnoses Alcohol use disorder F10.90
[2024-06-27 15:56] VITALS: PULSE 93; O2SAT 98; BMI 32.1
--- OUTSIDE RECORDS SUMMARY | 2024-06-27 17:36 | XMS_ITS | Encounter Summary ---
Author Organization [facility] Address [address] [place] [address] Care Team Providers Care Kitchen Porter Name Role Phone Senia Tovar MD Primary Care Provider Reason for Visit * Reason Comments Medication Refill Encounter Details Date Type Department Care Team (Late st Contact Info) Description 07/26/2021 Refill [facility] Gastroenterology, [place] [address] [place] [address] Nohelia Medrano MD [address] [place] [address] Generalized abdominal pain Social History Tobacco Use [...] generalized documented in this encounter Care Teams Kitchen Porter Relationship Specialty Start Date End Date Senia Tovar MD [address] [place] [address] [place] [address] PCP - General General Pediatrics 07/07/21 documented as of this encounter
--- OUTSIDE RECORDS SUMMARY | 2024-06-27 17:36 | XMS_ITS | Encounter Summary ---
Author Organization [facility] Address [address] [place] [address] Care Team Providers Care Residential Property Tax Appraiser Name Role Phone Inna Giron Primary Care Provider [phone] Senia Tovar MD Primary Care Provider [phone] Reason for Visit * Reason Comments Medication Refill Encounter Details Date Type Department Care Team (Late st Contact Info) Description 09/02/2020 Refill [facility] Gastroenterology, [place] [address] [place] [address] Nohelia Medrano MD [address] [place] [address] Generalized abdominal pain Social History Tobacco Use [...] generalized documented in this encounter Care Teams Residential Property Tax Appraiser Relationship Specialty Start Date End Date Inna Giron PA [address] [place] [address] [address] [place] [address] PCP - General Physician Wood Heel Flap Inserter 04/01/20 07/06/21 Senia Tovar MD [address] [place] [address] [place] [address] PCP - General General Pediatrics 07/07/21 documented as of this encounter
--- OUTSIDE RECORDS SUMMARY | 2024-06-27 17:36 | XMS_ITS | Encounter Summary ---
Author Organization [facility] Address [address] [place] [address] Care Team Providers Care Ops Analyst Name Role Phone Inna Giron Primary Care Provider Senia Tovar MD Primary Care Provider [phone] Reason for Visit * Reason Comments Medication Refill Encounter Details Date Type Department Care Team (Late st Contact Info) Description 11/11/2020 Refill [facility] Gastroenterology, [place] [address] [place] [address] Nohelia Medrano MD [address] [place] [address] Generalized abdominal pain Social History Tobacco Use [...] generalized documented in this encounter Care Teams Ops Analyst Relationship Specialty Start Date End Date Inna Giron PA [address] [place] [address] [address] [place] [address] PCP - General Physician Patrol Deputy Sheriff 04/01/20 07/06/21 Senia Tovar MD [address] [place] [address] [place] [address] PCP - General General Pediatrics 07/07/21 documented as of this encounter
--- OUTSIDE RECORDS SUMMARY | 2024-06-27 17:36 | XMS_ITS | Encounter Summary ---
Author Organization [address] [address] Care Team Providers Care Senior Architect/Design Manager Name Role Phone Senia Tovar MD Primary Care Provider [phone] Reason for Visit * Reason Comments Medication Refill Encounter Details Date Type Department Care Team ([facility] st Contact Info) Description 11/27/2021 Refill [facility] Gastroenter[address] [address] Nohelia Medrano MD [address] [place] [address] Generalized abdominal pain Social History Tobacco Use [...] did not know. He was very confused. Plant Controller read him the office visit plan to [...] generalized documented in this encounter Care Teams Senior Architect/Design Manager Relationship Specialty Start Date End Date Senia Tovar MD [address] [place] [address] [place] [address] PCP - General General Pediatrics 07/07/21 documented as of this encounter
--- OUTSIDE RECORDS SUMMARY | 2024-06-27 17:36 | XMS_ITS | Encounter Summary ---
Author Organization [facility] Address [address] [place] [address] Care Team Providers Care Adult Education Teacher Name Role Phone Inna Giron Primary Care Provider [phone] Senia Tovar MD Primary Care Provider [phone] Reason for Visit * Reason Comments Medication Refill Encounter Details Date Type Department Care Team (Late st Contact Info) Description 04/05/2021 Refill [facility] Gastroenterology, [place] [address] [place] [address] Nohelia Medrano MD [address] [place] [address] Generalized abdominal pain Social History Tobacco Use [...] generalized documented in this encounter Care Teams Adult Education Teacher Relationship Specialty Start Date End Date Inna Giron PA [address] [place] [address] [place] [address] PCP - General Physician Ore Sampler 04/01/20 07/06/21 Senia Tovar MD [address] [place] [address] [place] [address] PCP - General General Pediatrics 07/07/21 documented as of this encounter
--- OUTSIDE RECORDS SUMMARY | 2024-06-27 17:36 | XMS_ITS | Encounter Summary ---
Author Organization [facility] Address [address] [place] [address] Care Team Providers Care Office Rep Name Role Phone Senia Tovar MD Primary Care Provider [phone] Reason for Visit * Reason Comments Medication Refill Encounter Details Date Type Department Care Team (Late st Contact Info) Description 11/30/2021 Refill [facility] Gastroenterology, [place] [address] [place] [address] Nohelia Medrano MD [address] [place] [address] Generalized abdominal pain Social History Tobacco Use [...] generalized documented in this encounter Care Teams Office Rep Relationship Specialty Start Date End Date Senia Tovar MD [address] [place] [address] [place] [address] PCP - General General Pediatrics 07/07/21 documented as of this encounter
--- OUTSIDE RECORDS SUMMARY | 2024-06-27 17:36 | XMS_ITS | Encounter Summary ---
Author Organization [facility] Address [address] [place] [address] Care Team Providers Care Visiting Professor Name Role Phone Inna Giron Primary Care Provider [phone] Senia Tovar MD Primary Care Provider [phone] Reason for Visit * Reason Comments Medication Refill Encounter Details Date Type Department Care Team (Late st Contact Info) Description 10/08/2020 Refill [facility] Gastroenterology, [place] [address] [place] [address] Nohelia Medrano MD [address] [place] [address] Generalized abdominal pain Social History Tobacco Use [...] generalized documented in this encounter Care Teams Visiting Professor Relationship Specialty Start Date End Date Inna Giron PA [address] [place] [address] [place] [address] PCP - General Physician Instructional Specialist 04/01/20 07/06/21 Senia Tovar MD [address] [place] [address] [place] [address] PCP - General General Pediatrics 07/07/21 documented as of this encounter
--- OUTSIDE RECORDS SUMMARY | 2024-06-27 17:36 | XMS_ITS | Encounter Summary ---
Author Organization [facility] Address [address] [place] [address] Care Team Providers Care Graduation Coach Name Role Phone Inna Giron Primary Care Provider Senia Tovar MD Primary Care Provider [phone] Reason for Visit * Reason Comments Medication Refill Encounter Details Date Type Department Care Team (Late st Contact Info) Description 06/20/2020 Refill [facility] Gastroenterology, [place] [address] [place] [address] Nohelia Medrano MD [address] [place] [address] Generalized abdominal pain Social History Tobacco Use [...] generalized documented in this encounter Care Teams Graduation Coach Relationship Specialty Start Date End Date Inna Giron PA [address] [place] [address] [address] [place] [address] PCP - General Physician Range Ecologist 04/01/20 07/06/21 Senia Tovar MD [address] [place] [address] [place] [address] PCP - General General Pediatrics 07/07/21 documented as of this encounter
--- OUTSIDE RECORDS SUMMARY | 2024-06-27 17:36 | XMS_ITS | Encounter Summary ---
Author Organization [facility] Address [address] [place] [address] Care Team Providers Care Cnc Lathe Programmer Name Role Phone Inna Giron Primary Care Provider [phone] Senia Tovar MD Primary Care Provider [phone] Reason for Visit * Reason Comments Medication Refill Encounter Details Date Type Department Care Team (Late st Contact Info) Description 07/03/2020 Refill [facility] Gastroenterology, [place] [address] [place] [address] Nohelia Medrano MD [address] [place] [address] Generalized abdominal pain Social History Tobacco Use [...] generalized documented in this encounter Care Teams Cnc Lathe Programmer Relationship Specialty Start Date End Date Inna Giron PA [address] [place] [address] [place] [address] PCP - General Physician Tile Erector 04/01/20 07/06/21 Senia Tovar MD [address] [place] [address] [place] [address] PCP - General General Pediatrics 07/07/21 documented as of this encounter
--- OUTSIDE RECORDS SUMMARY | 2024-06-27 17:36 | XMS_ITS | Encounter Summary ---
Author Organization [facility] Address [address] [place] [address] Care Team Providers Care Foam Molder Name Role Phone Inna Giron Primary Care Provider [phone] Senia Tovar MD Primary Care Provider [phone] Reason for Visit * Reason Comments Medication Refill Encounter Details Date Type Department Care Team (Late st Contact Info) Description 12/10/2020 Refill [facility] [place] [address] [place] [address] Nohelia Medrano MD [address] [place] [address] Generalized abdominal pain Social History Tobacco Use [...] generalized documented in this encounter Care Teams Foam Molder Relationship Specialty Start Date End Date Inna Giron PA [address] [place] [address] [address] GRE[address] Jillian [place] [address] PCP - General Physician Contracts Specialist 04/01/20 07/06/21 Senia Tovar MD [address] [place] [address] [address] Jillian [place] [address] PCP - General General Pediatrics 07/07/21 documented as of this encounter
--- OUTSIDE RECORDS SUMMARY | 2024-06-27 17:36 | XMS_ITS | Encounter Summary ---
Author Organization [facility] Address [address] [place] [address] Care Team Providers Care Inspector Circuitry Negative Name Role Phone Senia Tovar MD Primary Care Provider [phone] Reason for Visit * Reason Comments Medication Refill Encounter Details Date Type Department Care Team ([facility] st Contact Info) Description 09/09/2021 Refill [facility] [address]astroenter[address] [address] Nohelia Medrano MD [address] [place] [address] Generalized abdominal pain Social History Tobacco Use [...] generalized documented in this encounter Care Teams Inspector Circuitry Negative Relationship Specialty Start Date End Date Senia Tovar MD [address] [place] [address] [address] [place], [place] [address] PCP - General General Pediatrics 07/07/21 documented as of this encounter
--- OUTSIDE RECORDS SUMMARY | 2024-06-27 17:36 | XMS_ITS | Encounter Summary ---
Author Organization [facility] Address [address] [place] [address] Care Team Providers Care Publicity Expert Name Role Phone Inna Giron Primary Care Provider [phone] Senia Tovar MD Primary Care Provider [phone] Reason for Visit * Reason Comments Medication Refill Encounter Details Date Type Department Care Team (Late st Contact Info) Description 05/15/2020 Refill [facility] Gastroenterology, [place] 84 [place] [address] Nohelia Medrano MD [address] [place] [address] Generalized abdominal pain Social History Tobacco Use [...] generalized documented in this encounter Care Teams Publicity Expert Relationship Specialty Start Date End Date Inna Giron PA [address] [place] [address] [address] [place] [address] PCP - General Physician Certified Pesticide Applicator 04/01/20 07/06/21 Senia Tovar MD [address] [place] [address] [address] [place] [address] PCP - General General Pediatrics 07/07/21 documented as of this encounter
--- OUTSIDE RECORDS SUMMARY | 2024-06-27 17:36 | XMS_ITS | Clinical Summary ---
Author Organization [facility] Address [address] [place] [address] Care Team Providers Care Composition Instructor Name Role Phone Senia Tovar MD Primary Care Provider [phone] Source Comments Please note that some or [...] so, obtain the minor's consent prior to disclosure.[facility] Allergies Active Allergy Reactions Criticality Noted [...] (06/30/2021): Added automatically from request for surgery [id number] Family History Medical History Relation Name Comments [...] patient's age to complete this topic Insurance [facility] Care Teams Composition Instructor Relationship Specialty Start Date End Date Senia Tovar MD [address] [place] [address] [address] [place], [place] [phone] PCP - General General Pediatrics 07/07/21
--- OUTSIDE RECORDS SUMMARY | 2024-06-27 17:36 | XMS_ITS | Encounter Summary ---
Author Organization [facility] Address [address] [place] [address] Care Team Providers Care Plumber'S Helper Name Role Phone Inna Giron Primary Care Provider [phone] Senia Tovar MD Primary Care Provider [phone] Reason for Visit * Reason Comments Medication Refill Encounter Details Date Type Department Care Team (Late st Contact Info) Description 01/07/2021 Refill [facility] Gastroenterology, [place] [address] [place] [address] Nohelia Medrano MD [address] [place] [address] Generalized abdominal pain Social History Tobacco Use [...] generalized documented in this encounter Care Teams Plumber'S Helper Relationship Specialty Start Date End Date Inna Grion PA [address] [place] [address] [address] [place] [address] PCP - General Physician Print Finisher 04/01/20 07/06/21 Senia Tovar MD [address] [place] [address] [place] [address] PCP - General General Pediatrics 07/07/21 documented as of this encounter
== END 2024-06-27 16:13 | disposition home or self-care (01) ==
LOC: HO.HID 15:49
PROVIDERS: PCP Family Medicine; Visit Provider Internal Medicine
DX: F10.90 Alcohol use, unspecified, uncomplicated (principal)
CPT/HCPCS: 99204

== ENCOUNTER → 2024-06-27 15:49 | Outpatient (BNVA) | payer OTHER, SELFPAY | PROVIDERS: PCP Family Medicine; Visit Provider Internal Medicine | DX: F10.90 Alcohol use, unspecified, uncomplicated (principal) | CPT/HCPCS: 99202 ==

== ENCOUNTER 2024-06-28 13:44 | Outpatient (REF) | payer OTHER, SELFPAY ==
[2024-06-28 13:58] LABS: MANUAL DIFF FLAG NO
[2024-06-28 15:24] LABS: Basophils Absolute Auto 0.1 X10*3/uL (0.0-0.2); Basophils Percent Auto 0.8 % (0-2); Eosinophils Percent Auto 0.5 % (0-4); Hemoglobin 14.8 g/dl (14.0-18.0); Imm Gran Abs Auto 0.03 X10*3/uL (0.00-0.03); Imm Gran Pct Auto 0.4 % (0.0-0.4); Lymphocytes Absolute Auto 1.7 X10*3/uL (1.2-4.9); Lymphocytes Percent Auto 21.9 % (20-40); Mean Corpuscular HGB Conc 32.9 g/dl (31.0-36.0); Mean Corpuscular Hemoglobin 27.3 pg (27.0-33.0); Mean Platelet Volume 9.5 fL (9.4-12.4); Monocytes Absolute Auto 0.5 X10*3/uL (0.1-1.2); Neutrophils Absolute Auto 5.4 x10*3/uL (2.0-8.3); Neutrophils Percent Auto 69.4 % (45-73); Platelet Count 346 X10*3/uL (160-400); Red Blood Count 5.42 X10*6/uL (4.60-5.80); Red Cell Distribution Width 13.4 % (11.0-16.0); White Blood Count 7.8 X10*3/uL (4.8-10.8)
[2024-06-28 15:28] LABS: Prothrombin Time 12.1 SEC (10.9-12.4)
[2024-06-28 16:34] LABS: Alanine Aminotransferase 29 U/L (0-40); Albumin Level 4.8 g/dL (3.5-5.0); Alkaline Phosphatase 59 U/L (39-117); Anion Gap 13 (12-20); Aspartate Amino Transferase 24 U/L (5-37); Bilirubin Direct 0.2 mg/dL (0.0-0.5); Bilirubin Total 0.5 mg/dL (0.0-1.0); Blood Urea Nitrogen 12 mg/dL (9-16); Calcium 9.9 mg/dL (8.4-10.2); Carbon Dioxide 27 mmol/L (22-29); Chloride 105 mmol/L (96-108); Estimated Glomerular Filt Rate > 60; Glucose Random 84 mg/dL (60-115); Potassium 4.1 mmol/L (3.3-5.1); Sodium 141 mmol/L (135-145); Total Protein 7.9 g/dL (6.5-8.0)
--- OUTSIDE RECORDS SUMMARY | 2024-06-28 16:36 | XMS_ITS | Encounter Summary ---
Author Organization [address] [address] Care Team Providers Care It Risk Advisor Name Role Phone Senia Tovar MD Primary Care Provider [phone] Reason for Visit * Reason Comments Medication Refill Encounter Details Date Type Department Care Team ([facility] st Contact Info) Description 11/27/2021 Refill [facility] Gastroenterology[address] [address] Nohelia Medrano MD [address] [place] [address] Generalized abdominal pain Social History Tobacco Use [...] did not know. He was very confused. Hot Strip Finisher read him the office visit plan to [...] generalized documented in this encounter Care Teams It Risk Advisor Relationship Specialty Start Date End Date Senia Tovar MD [address] [place] [address] [place] [address] PCP - General General Pediatrics 07/07/21 documented as of this encounter
--- OUTSIDE RECORDS SUMMARY | 2024-06-28 16:36 | XMS_ITS | Encounter Summary ---
Author Organization [facility] Address [address] [place] [address] Care Team Providers Care Motor Coach Bus Driver Name Role Phone Inna Giron Primary Care Provider [phone] Senia Tovar MD Primary Care Provider [phone] Reason for Visit * Reason Comments Medication Refill Encounter Details Date Type Department Care Team (Late st Contact Info) Description 04/05/2021 Refill [facility] Gastroenterology, [place] 84 [place] [address] Nohelia Medrano MD [address] [place] [address] Generalized abdominal pain Social History Tobacco Use [...] generalized documented in this encounter Care Teams Motor Coach Bus Driver Relationship Specialty Start Date End Date Inna Giron PA [address] [place] [address] [place] [address] PCP - General Physician Painter Shipyard 04/01/20 07/06/21 Senia Tovar MD [address] [place] [address] [place] [address] PCP - General General Pediatrics 07/07/21 documented as of this encounter
--- OUTSIDE RECORDS SUMMARY | 2024-06-28 16:36 | XMS_ITS | Clinical Summary ---
Author Organization [facility] Address [address] [place] [address] Care Team Providers Care Riveting Machine Operator Name Role Phone Senia Tovar MD Primary Care Provider [phone] Source Comments Please note that some or [...] (06/30/2021): Added automatically from request for surgery [id number] Family History Medical History Relation Name Comments [...] patient's age to complete this topic Insurance [facility] [employer] Care Teams Riveting Machine Operator Relationship Specialty Start Date End Date Senia Tovar MD [address] [place] [address] [address] [place], [place] [id number] PCP - General General Pediatrics 07/07/21
--- OUTSIDE RECORDS SUMMARY | 2024-06-28 16:36 | XMS_ITS | Encounter Summary ---
Author Organization [facility] Address [address] [place] [address] Care Team Providers Care Service Counselor Name Role Phone Inna Giron Primary Care Provider [phone] Senia Tovar MD Primary Care Provider [phone] Reason for Visit * Reason Comments Medication Refill Encounter Details Date Type Department Care Team (Late st Contact Info) Description 11/11/2020 Refill [facility] Gastroenterology, [place] [address] [place] [address] Nohelia Medrano MD [address] [place] [address] Generalized abdominal pain Social History Tobacco Use [...] generalized documented in this encounter Care Teams Service Counselor Relationship Specialty Start Date End Date Inna Giron PA [address] [place] [address] [address] [place] [address] PCP - General Physician Fuel Buyer 04/01/20 07/06/21 Senia Tovar MD [address] [place] [address] [place] [address] PCP - General General Pediatrics 07/07/21 documented as of this encounter
--- OUTSIDE RECORDS SUMMARY | 2024-06-28 16:36 | XMS_ITS | Encounter Summary ---
Author Organization [facility] Address [address] [place] [address] Care Team Providers Care Combine Operator Name Role Phone Inna Giron Primary Care Provider [phone] Senia Tovar MD Primary Care Provider [phone] Reason for Visit * Reason Comments Medication Refill Encounter Details Date Type Department Care Team (Late st Contact Info) Description 07/03/2020 Refill [facility] Gastroenterology, [place] 84 [place] [address] Nohelia Medrano MD [address] [place] [address] Generalized abdominal pain Social History Tobacco Use [...] generalized documented in this encounter Care Teams Combine Operator Relationship Specialty Start Date End Date Inna Giron PA [address] [place] [address] [place] [address] PCP - General Physician Infectious Disease Technician 04/01/20 07/06/21 Senia Tovar MD [address] [place] [address] [place] [address] PCP - General General Pediatrics 07/07/21 documented as of this encounter
--- OUTSIDE RECORDS SUMMARY | 2024-06-28 16:36 | XMS_ITS | Encounter Summary ---
Author Organization [facility] Address [address] [place] [address] Care Team Providers Care Gripper Installer Name Role Phone Inna Giron Primary Care Provider [phone] Senia Tovar MD Primary Care Provider [phone] Reason for Visit * Reason Comments Medication Refill Encounter Details Date Type Department Care Team (Late st Contact Info) Description 06/20/2020 Refill [facility] Gastroenterology, [place] 84 [place] [address] Nohelia Medrano MD [address] [place] [address] Generalized abdominal pain Social History Tobacco Use [...] generalized documented in this encounter Care Teams Gripper Installer Relationship Specialty Start Date End Date Inna Giron PA [address] [place] [address] [address] [place] [address] PCP - General Physician Rib Builder 04/01/20 07/06/21 Senia Tovar MD [address] [place] [address] [place] [address] PCP - General General Pediatrics 07/07/21 documented as of this encounter
--- OUTSIDE RECORDS SUMMARY | 2024-06-28 16:36 | XMS_ITS | Encounter Summary ---
Author Organization [facility] Address [address] [place] [address] Care Team Providers Care Crop Scout Name Role Phone Inna Giron Primary Care Provider Senia Tovar MD Primary Care Provider [phone] Reason for Visit * Reason Comments Medication Refill Encounter Details Date Type Department Care Team (Late st Contact Info) Description 01/07/2021 Refill [facility] Gastroenterology, [place] [address] [place] [address] Nohelia Medrano MD [address] [place] [address] Generalized abdominal pain Social History Tobacco Use [...] generalized documented in this encounter Care Teams Crop Scout Relationship Specialty Start Date End Date Inna Giron PA [address] [place] [address] [address] [place] [address] PCP - General Physician Cash Person 04/01/20 07/06/21 Senia Tovar MD [address] [place] [address] [place] [address] PCP - General General Pediatrics 07/07/21 documented as of this encounter
--- OUTSIDE RECORDS SUMMARY | 2024-06-28 16:36 | XMS_ITS | Encounter Summary ---
Author Organization [facility] Address [address] [place] [address] Care Team Providers Care Glass Worker Name Role Phone Senia Tovar MD Primary Care Provider Reason for Visit * Reason Comments Medication Refill Encounter Details Date Type Department Care Team ([facility] st Contact Info) Description 09/09/2021 Refill [facility] Gastroenter[address] [address] Nohelia Medrano MD [address] [place] [address] Generalized abdominal pain Social History Tobacco Use [...] generalized documented in this encounter Care Teams Glass Worker Relationship Specialty Start Date End Date Senia Tovar MD [address] [place] [address] [address] [place], MARINA [address] PCP - General General Pediatrics 07/07/21 documented as of this encounter
--- OUTSIDE RECORDS SUMMARY | 2024-06-28 16:36 | XMS_ITS | Encounter Summary ---
Author Organization [facility] Address [address] [place] [address] Care Team Providers Care Crown Presser Name Role Phone Inna Giron Primary Care Provider [phone] Senia Tovar MD Primary Care Provider [phone] Reason for Visit * Reason Comments Medication Refill Encounter Details Date Type Department Care Team (Late st Contact Info) Description 05/15/2020 Refill [facility] Gastroenterology, [place] 84 [place] [address] Nohelia Medrano MD [address] [place] [address] Generalized abdominal pain Social History Tobacco Use [...] generalized documented in this encounter Care Teams Crown Presser Relationship Specialty Start Date End Date Inna Giron PA [address] [place] [address] [address] [place] [address] PCP - General Physician Patrol Deputy Sheriff 04/01/20 07/06/21 Senia Tovar MD [address] [place] [address] [address] [place] [address] PCP - General General Pediatrics 07/07/21 documented as of this encounter
--- OUTSIDE RECORDS SUMMARY | 2024-06-28 16:36 | XMS_ITS | Encounter Summary ---
Author Organization [facility] Address [address] [place] [address] Care Team Providers Care Performance Architect Name Role Phone Senia Tovar MD Primary Care Provider [phone] Reason for Visit * Reason Comments Medication Refill Encounter Details Date Type Department Care Team (Late st Contact Info) Description 07/26/2021 Refill [facility] Gastroenterology, [place] [address] [place] [address] Nohelia Medrano MD [address] [place] [address] Generalized abdominal pain Social History Tobacco Use [...] generalized documented in this encounter Care Teams Performance Architect Relationship Specialty Start Date End Date Senia Tovar MD [address] [place] [address] [place] [address] PCP - General General Pediatrics 07/07/21 documented as of this encounter
--- OUTSIDE RECORDS SUMMARY | 2024-06-28 16:36 | XMS_ITS | Encounter Summary ---
Author Organization [facility] Address [address] [place] [address] Care Team Providers Care Sampler Tester Name Role Phone Senia Tovar MD Primary Care Provider [phone] Reason for Visit * Reason Comments Medication Refill Encounter Details Date Type Department Care Team (Late st Contact Info) Description 11/30/2021 Refill [facility] Gastroenterology, [place] [address] [place] [address] Nohelia Medrano MD [address] [place] [address] Generalized abdominal pain Social History Tobacco Use [...] generalized documented in this encounter Care Teams Sampler Tester Relationship Specialty Start Date End Date Senia Tovar MD [address] [place] [address] [place] [address] PCP - General General Pediatrics 07/07/21 documented as of this encounter
--- OUTSIDE RECORDS SUMMARY | 2024-06-28 16:36 | XMS_ITS | Encounter Summary ---
Author Organization [facility] Address [address] [place] [address] Care Team Providers Care Mac Artist Name Role Phone Inna Giron Primary Care Provider [phone] Senia Tovar MD Primary Care Provider Reason for Visit * Reason Comments Medication Refill Encounter Details Date Type Department Care Team (Late st Contact Info) Description 10/08/2020 Refill [facility] Gastroenterology, [place] [address] [place] [address] Nohelia Medrano MD [address] [place] [address] Generalized abdominal pain Social History Tobacco Use [...] generalized documented in this encounter Care Teams Mac Artist Relationship Specialty Start Date End Date Inna Giron PA [address] [place] [address] [place] [address] PCP - General Physician Interim Controller 04/01/20 07/06/21 Senia Tovar MD [address] [place] [address] [place] [address] PCP - General General Pediatrics 07/07/21 documented as of this encounter
--- OUTSIDE RECORDS SUMMARY | 2024-06-28 16:36 | XMS_ITS | Encounter Summary ---
Author Organization [facility] Address [address] [place] [address] Care Team Providers Care Rack Room Worker Name Role Phone Inna Giron Primary Care Provider [phone] Senia Tovar MD Primary Care Provider Reason for Visit * Reason Comments Medication Refill Encounter Details Date Type Department Care Team (Late st Contact Info) Description 09/02/2020 Refill [facility] Gastroenterology, [place] 84 [place] [address] Nohelia Medrano MD [address] [place] [address] Generalized abdominal pain Social History Tobacco Use [...] generalized documented in this encounter Care Teams Rack Room Worker Relationship Specialty Start Date End Date Inna Giron PA [address] [place] [address] [address] [place] [address] PCP - General Physician Sheep Sticker 04/01/20 07/06/21 Senia Tovar MD [address] [place] [address] [place] [address] PCP - General General Pediatrics 07/07/21 documented as of this encounter
--- OUTSIDE RECORDS SUMMARY | 2024-06-28 16:36 | XMS_ITS | Encounter Summary ---
Author Organization [facility] Address [address] [place] [address] Care Team Providers Care Pipeliner Name Role Phone Inna Giron Primary Care Provider [phone] Senia Tovar MD Primary Care Provider [phone] Reason for Visit * Reason Comments Medication Refill Encounter Details Date Type Department Care Team (Late st Contact Info) Description 12/10/2020 [facility]ill [facility] 84 [place] [address] Nohelia Medrano MD [address] [place] [address] Generalized abdominal pain Social History Tobacco Use [...] generalized documented in this encounter Care Teams Pipeliner Relationship Specialty Start Date End Date Inna Giron PA [address] [place] [address] [address] GREENE Jillian [place] [address] PCP - General Physician Technical Support Manager 04/01/20 07/06/21 Senia Tovar MD [address] [place] [address] [address] Jillian [place] [address] PCP - General General Pediatrics 07/07/21 documented as of this encounter
[2024-06-29 03:50] LABS: Syphilis Screen Nonreactive (Nonreactive)
[2024-06-29 04:39] LABS: HIV AB/AG Nonreactive (Nonreactive); HIV Num 1 0.07 S/CO (0.00-0.99); Hepatitis B Surface Antigen Negative (Negative); ~HepC Num1 0.15 S/CO (0.00-0.79); ~Hepatitis C Antibody Nonreactive (Nonreactive)
[2024-06-29 07:33] LABS: Hepatitis B Surface Ab Qnt 240 mIU/mL (> OR = 10)
[2024-07-01 14:12] LABS: TS Negative Control Passed; TS Panel A 0; TS Panel B 0; TS Positive Control Passed; TSpotTB Negative (Negative)
[2024-07-03 08:02] LABS: Hepatitis A Antibody IgG REACTIVE (Nonreactive); ~Hepatitis A Antibody IgG 9.09 S/CO (0.00-0.99)
[2024-07-03 12:09] LABS: FIB-ALT 19 U/L (9-46); FIB-Alpha-2-Macroglobulin 131 mg/dL (106-279); FIB-Apolipoprotein A1 146 mg/dL (94-176); FIB-GGT 45 U/L (3-70); FIB-Haptoglobin 175 mg/dL (43-212); FIB-Total Bilirubin 0.4 mg/dL (0.2-1.2); Liver Fibrosis Score 0.05; Liver Fibrosis Stage F0; Nec Inflam Act Grade A0; Nec Inflam Act Score 0.05; Reference ID 5436631
== END 2024-06-28 13:45 | disposition home or self-care (01) ==
LOC: HO.LAB 13:44
PROVIDERS: PCP Family Medicine; Visit Provider Internal Medicine
DX: F10.90 Alcohol use, unspecified, uncomplicated (principal)
CPT/HCPCS: 36415; 80048; 80076; 81596; 85025; 85610; 86317; 86481; 86708; 86780; 86803; 87340; 87389

== ENCOUNTER 2024-07-18 15:56 | Outpatient (AMB) | payer OTHER, SELFPAY ==
--- NOTE | 2024-07-18 15:57 | MHC.OFFVIS ---
Vital Signs 07/18/24 15:58 Height 5 ft 4 in Intake Visit Reasons: MAT Allergies ibuprofen [IBUPROFEN] Allergy (Intermediate, Verified 07/18/24 15:58) ABD PAIN AND REFLUX aspirin [ASA] Allergy (Verified 07/18/24 15:58) Swelling avocado Allergy (Verified 07/18/24 15:58) Swelling banana Allergy (Verified 07/18/24 15:58) Anaphylaxis gluten Allergy (Verified 07/18/24 15:58) Abdominal Pain house dust Allergy (Verified 07/18/24 15:58) Unknown lactose Allergy (Verified 07/18/24 15:58) Abdominal Pain venlafaxine Adverse Reaction (Mild, Verified 07/18/24 15:58) vomiting, disorintation seasonal Allergy (Unknown, Uncoded 05/09/24 20:40) unknown HPI HPI MAT: Details: He feels naltrexone makes him feel woozy PFSH Medical History Acid reflux Anxiety Depression Asthma Epidermal inclusion cyst Constipation Surgical History Hx of colonoscopy H/O endoscopy Family History Mother Anxiety Depression Maternal Grandfather Substance abuse Maternal Grandmother Anxiety Depression Father Arthritis Social History Household Members: Family Housing: House Alcohol intake: current Alcohol intake frequency: 3 or more drinks per day Alcohol type: beer Patient Tobacco Use Status: Current everyday Tobacco user Tobacco use type: Cigarette Cigarettes Per Day: 5 e-Cigarette/Vaping Use: Currently Using Substance Use Type: Marijuana service: No Current occupational status: employed 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 Sexual orientation: Did not discuss Cognitive needs: No Hearing needs: No Vision needs: No Review of Systems Const All systems reviewed & are unremarkable except as noted in HPI and below Physical Exam Const General: cooperative Orientation/consciousness: patient oriented x3 HEENT Head: Yes normal to inspection Mouth: Normal oral and palatal mucosa present Eyes General: appearance normal, both eyes and all related structures Pupils: Equal, round and reactive pupils present Resp Effort & Inspection: normal respiratory effort Cardio Rate: regular rate Rhythm: regular rhythm GI Palpation (GI): Soft to palpation and nontender General: Yes no CVA tenderness Back/Spine/Pelvis Back: no CVA tenderness Skin General skin exam: no rashes or lesions noted Neuro General: patient oriented x3 Cranial nerves: Yes CN's II-XII intact bilaterally and Yes Equal, round and reactive pupils present Extrem General: Yes normal to inspection Psych Appearance: grossly normal Results AMB 14 Panel Urine Drug Screen Urine Marijuana (THC) Negative Last Edit by Anahi Andrew CMA on 07/18/24 17:14 Urine Cocaine Negative Last Edit by Anahi Andrew CMA on 07/18/24 17:14 Urine Morphine Negative Last Edit by Anahi Andrew CMA on 07/18/24 17:14 Urine Methamphetamine Negative Last Edit by Anahi Andrew CMA on 07/18/24 17:14 Urine Amphetamine Negative Last Edit by Anahi Andrew CMA on 07/18/24 17:14 Urine Benzodiazepine Negative Last Edit by Anahi Andrew CMA on 07/18/24 17:14 Urine Barbiturates Negative Last Edit by Anahi Andrew CMA on 07/18/24 17:14 Urine Methadone Negative Last Edit by Anahi Andrew CMA on 07/18/24 17:14 Urine Buprenorphine Negative Last Edit by Anahi Andrew CMA on 07/18/24 17:14 Urine Tricyclic Antidepressant Negative Last Edit by Anahi Andrew CMA on 07/18/24 17:14 Urine MDMA Negative Last Edit by Anahi Andrew CMA on 07/18/24 17:14 Urine Oxycodone Negative Last Edit by Anahi Andrew CMA on 07/18/24 17:14 Urine Phencyclidine Negative Last Edit by Anahi Andrew CMA on 07/18/24 17:14 Urine Propoxyphene Negative Last Edit by Anahi Andrew CMA on 07/18/24 17:14 Results Reviewed Results Reviewed: Laboratory Last Values POC Urine Buprenorphine Negative 07/18/24 15:58 POC Urine Morphine Negative 07/18/24 15:58 POC Urine Oxycodone Negative 07/18/24 15:58 POC Urine Methadone Negative 07/18/24 15:58 POC Urine Propoxyphene Negative 07/18/24 15:58 POC Urine Barbiturates Negative 07/18/24 15:58 POC U Tricyclic Antidpr Negative 07/18/24 15:58 POC Urine PCP Negative 07/18/24 15:58 POC Ur Amphetamines Negative 07/18/24 15:58 POC Ur Methamphetamine Negative 07/18/24 15:58 POC Urine MDMA Negative 07/18/24 15:58 POC Ur Benzodiazepine Negative 07/18/24 15:58 POC Urine Cocaine Negative 07/18/24 15:58 POC Ur Marijuana (THC) Negative 07/18/24 15:58 Assessment & Plan Assessment & Plan (1) Alcohol use disorder: Comment: Denies SI or HI Not drinking today Screen neg other sub Code(s): F10.90 - Alcohol use, unspecified, uncomplicated Category: Medical Plan: Cut Suboxone in half Contiue counesling I added Campral and explained can used with Naltrexone Thiamine, See as scheduled. Orders: Orders AMB 14 Panel Urine Drug Screen 07/18/24 Z51.81 - Encounter for therapeutic drug level monitoring Medications: New acamprosate administer with mid-day and evening meals 333 mg PO BID 60 tabs 3RF 30 days Coding Level of Care Code Est Pt Level 3 (66421) Diagnoses Alcohol use disorder F10.90
--- OUTSIDE RECORDS SUMMARY | 2024-07-18 16:38 | XMS_ITS | Encounter Summary ---
Author Organization [facility] Address [address] [place] [address] Care Team Providers Care Jetting Machine Operator Name Role Phone Inna Giron Primary Care Provider [phone] Senia Tovar MD Primary Care Provider Reason for Visit * Reason Comments Medication Refill Encounter Details Date Type Department Care Team (Late st Contact Info) Description 12/10/2020 [facility]ill [facility] [address] [place] [address] Nohelia Medrano MD [address] [place] [address] Generalized abdominal pain Social History Tobacco Use [...] generalized documented in this encounter Care Teams Jetting Machine Operator Relationship Specialty Start Date End Date Inna Giron PA [address] [place] [address] DR GREENE Jillian [place] [address] PCP - General Physician Knitting Machine Operator Automatic 04/01/20 07/06/21 Senia Tovar MD [address] [place] [address] DR GREENE Jillian [place] [address] PCP - General General Pediatrics 07/07/21 documented as of this encounter
--- OUTSIDE RECORDS SUMMARY | 2024-07-18 16:38 | XMS_ITS | Encounter Summary ---
Author Organization [facility] Address [address] [place] [address] Care Team Providers Care Financial Reporting Manager Name Role Phone Senia Tovar MD Primary Care Provider [phone] Reason for Visit * Reason Comments Medication Refill Encounter Details Date Type Department Care Team (Late st Contact Info) Description 11/30/2021 Refill [facility] Gastroenterology, [place] [address] [place] [address] Nohelia Medrano MD [address] [place] [address] Generalized abdominal pain Social History Tobacco Use [...] generalized documented in this encounter Care Teams Financial Reporting Manager Relationship Specialty Start Date End Date Senia Tovar MD [address] [place] [address] [place] [address] PCP - General General Pediatrics 07/07/21 documented as of this encounter
--- OUTSIDE RECORDS SUMMARY | 2024-07-18 16:38 | XMS_ITS | Encounter Summary ---
Author Organization [facility] Address [address] [place] [address] Care Team Providers Care Practicing Md Anesthesiologist Name Role Phone Inna Giron Primary Care Provider [phone] Senia Tovar MD Primary Care Provider [phone] Reason for Visit * Reason Comments Medication Refill Encounter Details Date Type Department Care Team (Late st Contact Info) Description 07/03/2020 Refill [facility] Gastroenterology, [place] [address] [place] [address] Nohelia Medrano MD [address] [place] [address] Generalized abdominal pain Social History Tobacco Use [...] generalized documented in this encounter Care Teams Practicing Md Anesthesiologist Relationship Specialty Start Date End Date Inna Giron PA [address] [place] [address] [place] [address] PCP - General Physician Crew Caller 04/01/20 07/06/21 Senia Tovar MD [address] [place] [address] [place] [address] PCP - General General Pediatrics 07/07/21 documented as of this encounter
--- OUTSIDE RECORDS SUMMARY | 2024-07-18 16:38 | XMS_ITS | Encounter Summary ---
Author Organization [facility] Address [address] [place] [address] Care Team Providers Care Day Care Supervisor Name Role Phone Senia Tovar MD Primary Care Provider Reason for Visit * Reason Comments Medication Refill Encounter Details Date Type Department Care Team (Late st Contact Info) Description 07/26/[address] [facility] Gastroenterology, [place] [address] [place] [address] Nohelia Medrano MD [address] [place] [address] Generalized abdominal pain Social History Tobacco Use [...] generalized documented in this encounter Care Teams Day Care Supervisor Relationship Specialty Start Date End Date Senia Tovar MD [address] [place] [address] [place] [address] PCP - General General Pediatrics 07/07/21 documented as of this encounter
--- OUTSIDE RECORDS SUMMARY | 2024-07-18 16:38 | XMS_ITS | Encounter Summary ---
Author Organization [facility] Address [address] [place] [address] Care Team Providers Care Stitching Machine Setter Name Role Phone Inna Giron Primary Care Provider [phone] Senia Tovar MD Primary Care Provider [phone] Reason for Visit * Reason Comments Medication Refill Encounter Details Date Type Department Care Team (Late st Contact Info) Description 09/02/2020 Refill [facility] Gastroenterology, [place] [address] [place] [address] Nohelia Medrano MD [address] [place] [address] Generalized abdominal pain Social History Tobacco Use [...] generalized documented in this encounter Care Teams Stitching Machine Setter Relationship Specialty Start Date End Date Inna Giron PA [address] [place] [address] [address] [place] [address] PCP - General Physician Commercial Credit Head 04/01/20 07/06/21 Senia Tovar MD [address] [place] [address] [place] [address] PCP - General General Pediatrics 07/07/21 documented as of this encounter
--- OUTSIDE RECORDS SUMMARY | 2024-07-18 16:38 | XMS_ITS | Encounter Summary ---
Author Organization [facility] Address [address] [place] [address] Care Team Providers Care Software Engineer Name Role Phone Inna Giron Primary Care Provider [phone] Senia Tovar MD Primary Care Provider [phone] Reason for Visit * Reason Comments Medication Refill Encounter Details Date Type Department Care Team (Late st Contact Info) Description 05/15/2020 Refill [facility] Gastroenterology, [place] [address] [place] [address] Nohelia Medrano MD [address] [place] [address] Generalized abdominal pain Social History Tobacco Use [...] generalized documented in this encounter Care Teams Software Engineer Relationship Specialty Start Date End Date Inna Giron PA [address] [place] [address] [address] [place] [address] PCP - General Physician Head Bone Grinder 04/01/20 07/06/21 Senia Tovar MD [address] [place] [address] [address] [place] [address] PCP - General General Pediatrics 07/07/21 documented as of this encounter
--- OUTSIDE RECORDS SUMMARY | 2024-07-18 16:38 | XMS_ITS | Encounter Summary ---
Author Organization [facility] Address [address] [place] [address] Care Team Providers Care Pouncing Machine Operator Name Role Phone Inna Giron Primary Care Provider [phone] Senia Tovar MD Primary Care Provider Reason for Visit * Reason Comments Medication Refill Encounter Details Date Type Department Care Team (Late st Contact Info) Description 11/11/2020 Refill [facility] Gastroenterology, [place] [address] [place] [address] Nohelia Medrano MD [address] [place] [address] Generalized abdominal pain Social History Tobacco Use [...] generalized documented in this encounter Care Teams Pouncing Machine Operator Relationship Specialty Start Date End Date Inna Giron PA [address] [place] [address] [address] [place] [address] PCP - General Physician Quality Director 04/01/20 07/06/21 Senia Tovar MD [address] [place] [address] [place] [address] PCP - General General Pediatrics 07/07/21 documented as of this encounter
--- OUTSIDE RECORDS SUMMARY | 2024-07-18 16:38 | XMS_ITS | Encounter Summary ---
Author Organization [facility] Address [address] [place] [address] Care Team Providers Care Transition Program Manager Name Role Phone Inna Giron Primary Care Provider [phone] Senia Tovar MD Primary Care Provider [phone] Reason for Visit * Reason Comments Medication Refill Encounter Details Date Type Department Care Team (Late st Contact Info) Description 01/07/2021 Refill [facility] Gastroenterology, [place] [address] [place] [address] Nohelia Medrano MD [address] [place] [address] Generalized abdominal pain Social History Tobacco Use [...] generalized documented in this encounter Care Teams Transition Program Manager Relationship Specialty Start Date End Date Inna Giron PA [address] [place] [address] [address] [place] [address] PCP - General Physician Runner Out 04/01/20 07/06/21 Senia Tovar MD [address] [place] [address] [place] [address] PCP - General General Pediatrics 07/07/21 documented as of this encounter
--- OUTSIDE RECORDS SUMMARY | 2024-07-18 16:38 | XMS_ITS | Encounter Summary ---
Author Organization [facility] Address [address] [place] [address] Care Team Providers Care Dry Kiln Feeder Name Role Phone Inna Giron Primary Care Provider [phone] Senia Tovar MD Primary Care Provider [phone] Reason for Visit * Reason Comments Medication Refill Encounter Details Date Type Department Care Team (Late st Contact Info) Description 06/20/2020 Refill [facility] Gastroenterology, [place] [address] [place] [address] Nohelia Medrano MD [address] [place] [address] Generalized abdominal pain Social History Tobacco Use [...] generalized documented in this encounter Care Teams Dry Kiln Feeder Relationship Specialty Start Date End Date Inna Giron PA [address] [place] [address] [address] [place] [address] PCP - General Physician Catalogue And Special Products Manager 04/01/20 07/06/21 Senia Tovar MD [address] [place] [address] [place] [address] PCP - General General Pediatrics 07/07/21 documented as of this encounter
--- OUTSIDE RECORDS SUMMARY | 2024-07-18 16:38 | XMS_ITS | Encounter Summary ---
Author Organization [facility] Address [address] [place] [address] Care Team Providers Care Engineering Design Supervisor Name Role Phone Inna Giron Primary Care Provider [phone] Senia Tovar MD Primary Care Provider [phone] Reason for Visit * Reason Comments Medication Refill Encounter Details Date Type Department Care Team (Late st Contact Info) Description 10/08/2020 Refill [facility] Gastroenterology, [place] [address] [place] [address] Nohelia Medrano MD [address] [place] [address] Generalized abdominal pain Social History Tobacco Use [...] generalized documented in this encounter Care Teams Engineering Design Supervisor Relationship Specialty Start Date End Date Inna Giron PA [address] [place] [address] [place] [address] PCP - General Physician Bingo Floater 04/01/20 07/06/21 Senia Tovar MD [address] [place] [address] [place] [address] PCP - General General Pediatrics 07/07/21 documented as of this encounter
--- OUTSIDE RECORDS SUMMARY | 2024-07-18 16:38 | XMS_ITS | Clinical Summary ---
Author Organization [facility] Address [address] [place] [address] Care Team Providers Care Special Client Bus Driver Name Role Phone Senia Tovar MD Primary Care Provider [phone] Source Comments Please note that some or [...] so, obtain the minor's consent prior to disclosure.[facility] Allergies Active Allergy Reactions Criticality Noted [...] (06/30/2021): Added automatically from request for surgery [id number] Family History Medical History Relation Name Comments [...] patient's age to complete this topic Insurance [employer] Care Teams Special Client Bus Driver Relationship Specialty Start Date End Date Senia Tovar MD [address] [place] [address] [address] [place], [place] [id number] PCP - General General Pediatrics 07/07/21
--- OUTSIDE RECORDS SUMMARY | 2024-07-18 16:38 | XMS_ITS | Encounter Summary ---
Author Organization [facility] Address [address] [place] [address] Care Team Providers Care Metal Moulder'S Assistant Name Role Phone Inna Giron Primary Care Provider [phone] Senia Tovar MD Primary Care Provider [phone] Reason for Visit * Reason Comments Medication Refill Encounter Details Date Type Department Care Team (Late st Contact Info) Description 04/05/2021 Refill [facility] Gastroenterology, [place] [address] [place] [address] Nohelia Medrano MD [address] [place] [address] Generalized abdominal pain Social History Tobacco Use [...] generalized documented in this encounter Care Teams Metal Moulder'S Assistant Relationship Specialty Start Date End Date Inna Giron PA [address] [place] [address] [place] [address] PCP - General Physician Fashion Editor 04/01/20 07/06/21 Senia Tovar MD [address] [place] [address] [place] [address] PCP - General General Pediatrics 07/07/21 documented as of this encounter
--- OUTSIDE RECORDS SUMMARY | 2024-07-18 16:38 | XMS_ITS | Encounter Summary ---
Author Organization [address] [address] Care Team Providers Care Tank Furnace Operator Name Role Phone Senia Tovar MD Primary Care Provider [phone] Reason for Visit * Reason Comments Medication Refill Encounter Details Date Type Department Care Team ([facility] st Contact Info) Description 11/27/2021 Refill [facility] Gastroenter[address] [address] Nohelia Medrano MD [address] [place] [address] Generalized abdominal pain Social History Tobacco Use [...] did not know. He was very confused. Credit Operations Specialist read him the office visit plan to [...] documented in this encounter Care Teams Tank Furnace Operator Relationship Specialty Start Date End Date Senia Tovar MD [address] [place] [address] [place] [address] PCP - General General Pediatrics 07/07/21 documented as of this encounter
--- OUTSIDE RECORDS SUMMARY | 2024-07-18 16:38 | XMS_ITS | Encounter Summary ---
Author Organization [facility] Address [address] [place] [address] Care Team Providers Care Waiter/Waitress Cafeteria Name Role Phone Senia Tovar MD Primary Care Provider [phone] Reason for Visit * Reason Comments Medication Refill Encounter Details Date Type Department Care Team ([facility] st Contact Info) Description 09/09/2021 Refill [facility] [address] [address] Nohelia Medrano MD [address] [place] [address] Generalized abdominal pain Social History Tobacco Use [...] generalized documented in this encounter Care Teams Waiter/Waitress Cafeteria Relationship Specialty Start Date End Date Senia Tovar MD [address] [place] [address] DR [place], [place] [address] PCP - General General Pediatrics 07/07/21 documented as of this encounter
== END 2024-07-18 16:39 | disposition home or self-care (01) ==
LOC: HO.HCC 15:56
PROVIDERS: PCP Family Medicine; Visit Provider Internal Medicine
DX: F10.90 Alcohol use, unspecified, uncomplicated (principal)
CPT/HCPCS: 99213

== ENCOUNTER → 2024-07-18 15:56 | Outpatient (BNVA) | payer OTHER, SELFPAY | PROVIDERS: PCP Family Medicine; Visit Provider Internal Medicine | DX: F10.20 Alcohol dependence, uncomplicated (principal); Z79.899 Other long term (current) drug therapy | CPT/HCPCS: 80307; 99212 ==

== ENCOUNTER 2024-07-25 14:09 | Outpatient (AMB) | payer OTHER, SELFPAY ==
--- NOTE | 2024-07-25 14:12 | MHC.PC.OV ---
Vital Signs 07/25/24 14:20 Height 5 ft 4 in Weight 182 lb 6 oz BMI 31.3 BP 102/62 Blood Pressure Location Rt brachial Position Sitting Respiration 16 Pulse 86 Pulse Source Pulse Oximeter Temp 97.9 F Temp Source Oral Pulse Oximetry (%) 99 Oxygen Delivery Method Room Air Intake Visit Reasons: mental health follow up Intake Note: patient is scheduled for mental health follow-up and would like to talk about med modification Allergies ibuprofen [IBUPROFEN] Allergy (Intermediate, Verified 07/25/24 14:14) ABD PAIN AND REFLUX aspirin [ASA] Allergy (Verified 07/25/24 14:14) Swelling avocado Allergy (Verified 07/25/24 14:14) Swelling banana Allergy (Verified 07/25/24 14:14) Anaphylaxis gluten Allergy (Verified 07/25/24 14:14) Abdominal Pain house dust Allergy (Verified 07/25/24 14:14) Unknown lactose Allergy (Verified 07/25/24 14:14) Abdominal Pain venlafaxine Adverse Reaction (Mild, Verified 07/25/24 14:14) vomiting, disorintation seasonal Allergy (Unknown, Uncoded 07/25/24 14:14) unknown Medication List - Last Reconciled 07/25/24 by Eduardo Marquez MD acamprosate 333 mg PO BID 30 days albuterol sulfate 90 mcg/actuation (Ventolin HFA) 2 puffs inhalation Q4-6H PRN 30 days budesonide-formoterol 160-4.5 mcg/actuation (Symbicort) 2 puffs inhalation BID bupropion HCl 75 mg PO BID 30 days hydrocortisone 2.5% (Proctosol HC) 1 appl SC BID-QID PRN 4 days loratadine 10 mg PO DAILY 90 days naltrexone 50 mg PO DAILY 30 days polyethylene glycol 3350 (Miralax) 17 grams PO DAILY 14 days pramoxine 1% (Proctofoam) 1 appl SC BID triamcinolone acetonide 0.1% topical Tobacco use date assessed: 07/25/24 Dental Screening Dental Screen Date: 07/25/24 Did you have a dental visit in the last 12 months?: Yes Did you have a dental problem in the last 6 months where you did not have access to dental care?: No Was dental information given to patient?: No HPI mental health follow up HPI Details Patient?wants?to?talk?about?alcohol?abuse He?has?seen?comprehensive?care?clinic.??They?had?given?him?medications?to?help?him?stop?drinking He?says?he?has?not?taking?these?because?he?is?afraid?to?completely?stop. He?was?also?referred?to[facility]?and?he?says?the?reached?out?to?him?once?but?have?not?called?him?back?again.??He?does?not?have?an?appointment?scheduled?yet. [facility] Medical History Acid reflux Anxiety Depression Asthma Epidermal inclusion cyst Constipation Surgical History Hx of colonoscopy H/O endoscopy Family History Mother Anxiety Depression Maternal Grandfather Substance abuse Maternal Grandmother Anxiety Depression Father Arthritis Social History Household Members: Family Housing: House Alcohol intake: current Alcohol intake frequency: 3 or more drinks per day Alcohol type: beer Patient Tobacco Use Status: Current everyday Tobacco user Tobacco use type: Cigarette Cigarettes Per Day: 5 e-Cigarette/Vaping Use: Currently Using Substance Use Type: Marijuana service: No Current occupational status: employed 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 1. Little interest or pleasure in doing things: nearly every day 2. Feeling down, depressed, or hopeless: nearly every day 3. Trouble falling or staying asleep, or sleeping too much: nearly every day 4. Feeling tired or having little energy: nearly every day 5. Poor appetite or overeating: nearly every day 6. Feeling bad about yourself - or that you are a failure or have let yourself or your family down: nearly every day 7. Trouble concentrating on things, such as reading the newspaper or watching television: nearly every day 8. Moving or speaking so slowly that other people could have noticed. Or the opposite - being so fidgety or restless that you have been moving around a lot more than usual: nearly every day 9. Thoughts that you would be better off or of hurting yourself in some way: not at all Total score: 24 Depression Screening Interpretation: Positive Depression Screening Follow-up: New Medication prescribed and Follow-up Visit Requested Depression Screening Done: Yes 02810 - PHQ-9 Billing: Yes Source: Developed by Drs. Ricky Jennings, Laura Giron, Khoa Steiner and colleagues, with an educational claude from [employer]. Thrive Questionnaire Date Thrive assessed: 07/25/24 I am a: Patient What is your living situation today?: I have a steady place to live Within the past 12 months, did the food you bought not last and you didn't have the money to get more?: Never true Within the past 12 months, did you worry whether your food would run out before you got money to buy more?: Never true Do you have trouble paying for medicines?: I choose not to answer this question Do you have trouble getting transportation to medical appointments?: Yes Do you have trouble paying your heating and electricity bill?: No Do you have trouble taking care of your child, family member or friend?: I choose not to answer this question Do you have trouble with day-to-day activities such as bathing, preparing meals, shopping, managing finances, etc.?: No Are you currently unemployed and looking for a job?: No Are you interested in more education?: I choose not to answer this question Please select the resources that you would like help with: Transportation Currently or been in a relationship where the following occur: I choose not to answer THRIVE Score: 1 PAULA-7 AMB Questionnaire PAULA-7 Date PAULA - 7 assessed: 04/10/24 Feeling nervous, anxious, or on edge: 3 = Nearly every day Not being able to stop or control worryin = Nearly every day Worrying too much about different things: 3 = Nearly every day Trouble relaxin = Nearly every day Being so restless that it is hard to sit still: 2 = More than half the days Becoming easily annoyed or irritable: 3 = Nearly every day Feeling afraid as if something awful might happen: 3 = Nearly every day Total PAULA-7 score (0-4 normal; 5-9 mild; 10-14 moderate; 15-21 severe): 20 Source: Developed by Drs. Ricky Jennings, Laura Giron, Khoa Steiner and colleagues, with an educational claude from [employer]. PAULA-7 Assessment Billing PAULA-7 Assessment Tool: PAULA-7 Assessment 57017 Review of Systems Const Denies chills, Denies fatigue, Denies fever(s), Denies headache(s) and Denies weakness ENT Denies dizziness and Denies headache(s) Card Denies chest pain, Denies lightheadedness, Denies dyspnea and Denies other (Palpitations) Resp Denies cough, Denies dyspnea, Denies wheezing and Denies other ( shortness of breath) Musc Denies numbness and Denies tingling Neuro Denies dizziness, Denies headache(s), Denies numbness, Denies tingling, Denies paresthesias and Denies weakness Psych Reports anxiety and Denies depression Endo Denies fatigue Aller/Immun Denies wheezing Physical exam (Primary Care) Vital Signs: Last Vital Signs Temp 97.9 F 07/25/24 14:20 Pulse 86 07/25/24 14:20 Resp 16 07/25/24 14:20 BP 102/62 07/25/24 14:20 Pulse Ox 99 07/25/24 14:20 Oxygen Delivery Method Room Air 07/25/24 14:20 BMI result Body Mass Index 31.3 Tobacco/Smoking Status: Tobacco use Status Tobacco use date assessed 07/25/24 07/25/24 14:24 Patient Tobacco Use Status Current everyday Tobacco 07/25/24 14:14 Tobacco use type Cigarette 07/25/24 14:14 e-Cigarette/Vaping Use Currently Using 07/25/24 14:14 PHQ-9: PHQ-9 Score PHQ-9: Total score 07/25/24 14:24 Depression Screening Interpretation: Positive Depression Screening Follow-up: New Medication prescribed and Follow-up Visit Requested Thrive Assessment: Date of Thrive Assessment Date Thrive assessed 07/25/24 07/25/24 14:24 Currently or been in a relationship where the following occur: I choose not to answer Const General: no acute distress and well developed Nutritional Appearance: well nourished Orientation/consciousness: patient oriented x3 [facility] Head: Yes normocephalic and Yes atraumatic Eyes General: appearance normal, both eyes and all related structures Pupils: Equal, round and reactive pupils present EOM: EOMs intact bilaterally Resp Effort & Inspection: normal respiratory effort Auscultation: clear to auscultation bilaterally Cardio Rate: regular rate Rhythm: regular rhythm Heart sounds: S1 normal heart sound present, S2 normal heart sound present, no gallops, no murmurs and no rubs Neuro General: patient oriented x3 and gait normal Cranial nerves: Yes Equal, round and reactive pupils present Psych Affect: Anxious affect present Coding Level of Care Code Est Pt Level 4 (19066) Diagnoses Alcohol use disorder F10.90 Additional Codes PAULA-7 Assessment Billing - PAULA-7 Assessment Tool: PAULA-7 Assessment 30944 ([id number]) PHQ-9 - 02125 - PHQ-9 Billing: Yes ([id number]) Assessment & Plan Assessment & Plan (1) Alcohol use disorder: Comment: Denies SI or HI Not drinking today Screen neg other sub Code(s): F10.90 - Alcohol use, unspecified, uncomplicated Category: Medical Plan: Ongoing?alcohol?abuse. Patient?notes?that?he?was?prescribed?medications?by?the?comprehensive?Care?[facility]inic?but?has?been?afraid?to?try?them. He?says?that?he?is?rate?to?stop?drinking?all?wants. Recommended?he?work?on?trying?to?wean?down?some between?now?and?his?next?appointment?with?them. Will?give?him?a?script?for?clonidine?for?anxiety/irritability?which?he?says?is?whether?these?symptoms?when?he?has?not?had?much?to?drink. Follow-up?with?the?comprehensive?Care?Clinic Last?the?office?to?help?him?can?scheduled?with?[facility] Had?filled?out?FMLA?paperwork.??He?says?this?is?still?pending.??We?have?a?follow-up?appointment?in?September Medications: New clonidine HCl 0.1 mg PO BID 30 days PRN 60 tabs 0RF alcohol withdrawal
[2024-07-25 14:20] VITALS: BP 102/62; PULSE 86; RESP 16; TEMP 36.6; O2SAT 99; BMI 31.3
--- OUTSIDE RECORDS SUMMARY | 2024-07-25 15:22 | XMS_ITS | Encounter Summary ---
Author Organization [facility] Address [address] [place] [address] Care Team Providers Care Finished Yarn Examiner Name Role Phone Inna Giron Primary Care Provider [phone] Senia Tovar MD Primary Care Provider [phone] Reason for Visit * Reason Comments Medication Refill Encounter Details Date Type Department Care Team (Late st Contact Info) Description 09/02/2020 Refill [facility] Gastroenterology, [place] [address] [place] [address] Nohelia Medrano MD [address] [place] [address] Generalized abdominal pain Social History Tobacco Use [...] generalized documented in this encounter Care Teams Finished Yarn Examiner Relationship Specialty Start Date End Date Inna Giron PA [address] [place] [address] [address] [place] [address] PCP - General Physician Rn Residential 04/01/20 07/06/21 Senia Tovar MD [address] [place] [address] [place] [address] PCP - General General Pediatrics 07/07/21 documented as of this encounter
--- OUTSIDE RECORDS SUMMARY | 2024-07-25 15:22 | XMS_ITS | Encounter Summary ---
Author Organization [facility] Address [address] [place] [address] Care Team Providers Care Construction Executive Name Role Phone Senia Tovar MD Primary Care Provider [phone] Reason for Visit * Reason Comments Medication Refill Encounter Details Date Type Department Care Team (Late st Contact Info) Description 11/30/2021 Refill [facility] Gastroenterology, [place] [address] [place] [address] Nohelia Medrano MD [address] [place] [address] Generalized abdominal pain Social History Tobacco Use [...] generalized documented in this encounter Care Teams Construction Executive Relationship Specialty Start Date End Date Senia Tovar MD [address] [place] [address] [place] [address] PCP - General General Pediatrics 07/07/21 documented as of this encounter
--- OUTSIDE RECORDS SUMMARY | 2024-07-25 15:22 | XMS_ITS | Encounter Summary ---
Author Organization [facility] Address [address] [place] [address] Care Team Providers Care Sensory Scientist Name Role Phone Senia Tovar MD Primary Care Provider [phone] Reason for Visit * Reason Comments Medication Refill Encounter Details Date Type Department Care Team (Late st Contact Info) Description 07/26/2021 Refill [facility] Gastroenterology, [place] [address] [place] [address] Nohelia Medrano MD [address] [place] [address] Generalized abdominal pain Social History Tobacco Use [...] generalized documented in this encounter Care Teams Sensory Scientist Relationship Specialty Start Date End Date Senia Tovar MD [address] [place] [address] [place] [address] PCP - General General Pediatrics 07/07/21 documented as of this encounter
--- OUTSIDE RECORDS SUMMARY | 2024-07-25 15:22 | XMS_ITS | Encounter Summary ---
Author Organization [facility] Address [address] [place] [address] Care Team Providers Care Employee Placement Specialist Name Role Phone Inna Giron Primary Care Provider [phone] Senia Tovar MD Primary Care Provider Reason for Visit * Reason Comments Medication Refill Encounter Details Date Type Department Care Team (Late st Contact Info) Description 05/15/2020 Refill [facility] Gastroenterology, [place] [address] [place] [address] Nohelia Medrano MD [address] [place] [address] Generalized abdominal pain Social History Tobacco Use [...] generalized documented in this encounter Care Teams Employee Placement Specialist Relationship Specialty Start Date End Date Inna Giron PA [address] [place] [address] [address] [place] [address] PCP - General Physician Commercial Credit Lead 04/01/20 07/06/21 Senia Tovar MD [address] [place] [address] [address] [place] [address] PCP - General General Pediatrics 07/07/21 documented as of this encounter
--- OUTSIDE RECORDS SUMMARY | 2024-07-25 15:22 | XMS_ITS | Encounter Summary ---
Author Organization [facility] Address [address] [place] [address] Care Team Providers Care Coding Validator Name Role Phone Inna Giron Primary Care Provider Senia Tovar MD Primary Care Provider [phone] Reason for Visit * Reason Comments Medication Refill Encounter Details Date Type Department Care Team (Late st Contact Info) Description 01/07/2021 Refill [facility] Gastroenterology, [place] [address] [place] [address] Nohelia Medrano MD [address] [place] [address] Generalized abdominal pain Social History Tobacco Use [...] generalized documented in this encounter Care Teams Coding Validator Relationship Specialty Start Date End Date Inna Giron PA [address] [place] [address] [address] [place] [address] PCP - General Physician Dining Room Supervisor 04/01/20 07/06/21 Senia Tovar MD [address] [place] [address] [place] [address] PCP - General General Pediatrics 07/07/21 documented as of this encounter
--- OUTSIDE RECORDS SUMMARY | 2024-07-25 15:22 | XMS_ITS | Encounter Summary ---
Author Organization [facility] Address [address] [place] [address] Care Team Providers Care Bar Useful Or Busser Name Role Phone Inna Giron Primary Care Provider [phone] Senia Tovar MD Primary Care Provider [phone] Reason for Visit * Reason Comments Medication Refill Encounter Details Date Type Department Care Team (Late st Contact Info) Description 06/20/2020 Refill [facility] Gastroenterology, [place] [address] [place] [address] Nohelia Medrano MD [address] [place] [address] Generalized abdominal pain Social History Tobacco Use [...] generalized documented in this encounter Care Teams Bar Useful Or Busser Relationship Specialty Start Date End Date Inna Giron PA [address] [place] [address] [address] [place] [address] PCP - General Physician Psychic Reader 04/01/20 07/06/21 Senia Tovar MD [address] [place] [address] [place] [address] PCP - General General Pediatrics 07/07/21 documented as of this encounter
--- OUTSIDE RECORDS SUMMARY | 2024-07-25 15:22 | XMS_ITS | Encounter Summary ---
Author Organization [address] [address] Care Team Providers Care Mine Exploration Engineer Name Role Phone Senia Tovar MD Primary Care Provider [phone] Reason for Visit * Reason Comments Medication Refill Encounter Details Date Type Department Care Team ([facility] st Contact Info) Description 11/27/[address] [facility] [address]astroenter[address] [address] Nohelia Medrano MD [address] [place] [address] Generalized abdominal pain Social History Tobacco Use [...] did not know. He was very confused. Home Lighting Adviser read him the office visit plan to [...] generalized documented in this encounter Care Teams Mine Exploration Engineer Relationship Specialty Start Date End Date Senia Tovar MD [address] [place] [address] [place] [address] PCP - General General Pediatrics 07/07/21 documented as of this encounter
--- OUTSIDE RECORDS SUMMARY | 2024-07-25 15:22 | XMS_ITS | Encounter Summary ---
Author Organization [facility] Address [address] [place] [address] Care Team Providers Care Paint Roller Covermaker Name Role Phone Inna Giron Primary Care Provider [phone] Senia Tovar MD Primary Care Provider [phone] Reason for Visit * Reason Comments Medication Refill Encounter Details Date Type Department Care Team (Late st Contact Info) Description 04/05/2021 Refill [facility] Gastroenterology, [place] [address] [place] [address] Nohelia Medrano MD [address] [place] [address] Generalized abdominal pain Social History Tobacco Use [...] generalized documented in this encounter Care Teams Paint Roller Covermaker Relationship Specialty Start Date End Date Inna Giron PA [address] [place] [address] [place] [address] PCP - General Physician Metal Polisher 04/01/20 07/06/21 Senia Tovar MD [address] [address] [place] [address] PCP - General General Pediatrics 07/07/21 documented as of this encounter
--- OUTSIDE RECORDS SUMMARY | 2024-07-25 15:23 | XMS_ITS | Encounter Summary ---
Author Organization [facility] Address [address] [place] [address] Care Team Providers Care Head Up Operator Helper Name Role Phone Senia Tovar MD Primary Care Provider [phone] Reason for Visit * Reason Comments Medication Refill Encounter Details Date Type Department Care Team ([facility] st Contact Info) Description 09/09/2021 Refill [facility] [address]enter[address] [address] Nohelia Medrano MD [address] [place] [address] Generalized abdominal pain Social History Tobacco Use [...] generalized documented in this encounter Care Teams Head Up Operator Helper Relationship Specialty Start Date End Date Senia Tovar MD [address] [place] [address] [address] [place], [place] [address] PCP - General General Pediatrics 07/07/21 documented as of this encounter
--- OUTSIDE RECORDS SUMMARY | 2024-07-25 15:23 | XMS_ITS | Clinical Summary ---
Author Organization [facility] Address [address] [place] [address] Care Team Providers Care Brand Representative Name Role Phone Senia Tovar MD Primary Care Provider [phone] Source Comments Please note that some or [...] so, obtain the minor's consent prior to disclosure.[facility] Allergies Active Allergy Reactions Criticality Noted [...] (06/30/2021): Added automatically from request for surgery [id number] Family History Medical History Relation Name Comments [...] patient's age to complete this topic Insurance [employer] Care Teams Brand Representative Relationship Specialty Start Date End Date Senia Tovar MD [address] [place] [address] [address] [place], [place] [id number] PCP - General General Pediatrics 07/07/21
--- OUTSIDE RECORDS SUMMARY | 2024-07-25 15:23 | XMS_ITS | Encounter Summary ---
Author Organization [facility] Address [address] [place] [address] Care Team Providers Care Manager It Security Name Role Phone Inna Giron Primary Care Provider [phone] Senia Tovar MD Primary Care Provider [phone] Reason for Visit * Reason Comments Medication Refill Encounter Details Date Type Department Care Team (Late st Contact Info) Description 10/08/[address] [facility] Gastroenterology, [place] [address] [place] [address] Nohelia Medrano MD [address] [place] [address] Generalized abdominal pain Social History Tobacco Use [...] documented in this encounter Care Teams Manager It Security Relationship Specialty Start Date End Date Inna Giron PA [address] [place] [address] [place] [address] PCP - General Physician Rad Technologist 04/01/20 07/06/21 Senia Tovar MD [address] [place] [address] [place] [address] PCP - General General Pediatrics 07/07/21 documented as of this encounter
--- OUTSIDE RECORDS SUMMARY | 2024-07-25 15:23 | XMS_ITS | Encounter Summary ---
Author Organization [facility] Address [address] [place] [address] Care Team Providers Care Senior Network Security Engineer Name Role Phone Inna Giron Primary Care Provider [phone] Senia Tovar MD Primary Care Provider [phone] Reason for Visit * Reason Comments Medication Refill Encounter Details Date Type Department Care Team (Late st Contact Info) Description 11/11/2020 Refill [facility] Gastroenterology, [place] [address] [place] [address] Nohelia Medrano MD [address] [place] [address] Generalized abdominal pain Social History Tobacco Use [...] documented in this encounter Care Teams Senior Network Security Engineer Relationship Specialty Start Date End Date Inna Giron PA [address] [place] [address] [address] [place] [address] PCP - General Physician Granite Installer 04/01/20 07/06/21 Senia Tovar MD [address] [place] [address] [place] [address] PCP - General General Pediatrics 07/07/21 documented as of this encounter
--- OUTSIDE RECORDS SUMMARY | 2024-07-25 15:23 | XMS_ITS | Encounter Summary ---
Author Organization [facility] Address [address] [place] [address] Care Team Providers Care Promotions Executive Producer Name Role Phone Inna Giron Primary Care Provider [phone] Senia Tovar MD Primary Care Provider [phone] Reason for Visit * Reason Comments Medication Refill Encounter Details Date Type Department Care Team (Late st Contact Info) Description 12/10/2020 [facility] [address] [place] [address] Nohelia Medrano MD [address] [place] [address] Generalized abdominal pain Social History Tobacco Use [...] generalized documented in this encounter Care Teams Promotions Executive Producer Relationship Specialty Start Date End Date Inna Giron PA [address] [place] [address] [address] Jillian [place] [address] PCP - General Physician Salesforce Trainer 04/01/20 07/06/21 Senia Tovar MD [address] [place] [address] [address] [place] [address] PCP - General General Pediatrics 07/07/21 documented as of this encounter
--- OUTSIDE RECORDS SUMMARY | 2024-07-25 15:23 | XMS_ITS | Encounter Summary ---
Author Organization [facility] Address [address] [place] [id number] Care Team Providers Care Continuity Coordinator Name Role Phone Inna Giron Primary Care Provider [phone] Senia Tovar MD Primary Care Provider [phone] Reason for Visit * Reason Comments Medication Refill Encounter Details Date Type Department Care Team (Late st Contact Info) Description 07/03/2020 Refill [facility] G[facility]ology, [place] [address] [place] [address] Nohelia Medrano MD [address] [place] [id number] Generalized abdominal pain Social History Tobacco Use [...] generalized documented in this encounter Care Teams Continuity Coordinator Relationship Specialty Start Date End Date Inna Giron PA [address] [place] [address] [place] [address] PCP - General Physician Printing Manager 04/01/20 07/06/21 Senia Tovar MD [address] [place] [address] [place] [address] PCP - General General Pediatrics 07/07/21 documented as of this encounter
== END 2024-07-25 16:59 | disposition home or self-care (01) ==
LOC: HO.HMCFM 14:10
PROVIDERS: PCP Family Medicine; Visit Provider Family Medicine
DX: F10.90 Alcohol use, unspecified, uncomplicated (principal)

== ENCOUNTER → 2024-07-25 14:09 | Outpatient (BNVA) | payer OTHER, SELFPAY | PROVIDERS: PCP Family Medicine; Visit Provider Family Medicine | DX: F10.10 Alcohol abuse, uncomplicated (principal) | CPT/HCPCS: 96127; 99212 ==

== ENCOUNTER 2024-08-15 13:27 | Outpatient (AMB) | payer OTHER, SELFPAY ==
--- NOTE | 2024-08-15 13:30 | A.OFFVIS_ITS ---
Vital Signs 08/15/24 13:33 Height 5 ft 4 in Pulse 104 H Pulse Source Pulse Oximeter Pulse Oximetry (%) 99 Oxygen Delivery Method Room Air Intake Visit Reasons: MAT Allergies ibuprofen [IBUPROFEN] Allergy (Intermediate, Verified 08/15/24 13:34) ABD PAIN AND REFLUX aspirin [ASA] Allergy (Verified 08/15/24 13:34) Swelling avocado Allergy (Verified 08/15/24 13:34) Swelling banana Allergy (Verified 08/15/24 13:34) Anaphylaxis gluten Allergy (Verified 08/15/24 13:34) Abdominal Pain house dust Allergy (Verified 08/15/24 13:34) Unknown lactose Allergy (Verified 08/15/24 13:34) Abdominal Pain venlafaxine Adverse Reaction (Mild, Verified 08/15/24 13:34) vomiting, disorintation seasonal Allergy (Unknown, Uncoded 07/25/24 14:14) unknown HPI HPI MAT: Details: He feels naltrexone,acamprosate make him drink more and clonidine per PCP helps with withdrawals. [facility] Medical History Acid reflux Anxiety Depression Asthma Epidermal inclusion cyst Constipation Surgical History Hx of colonoscopy H/O endoscopy Family History Mother Anxiety Depression Maternal Grandfather Substance abuse Maternal Grandmother Anxiety Depression Father Arthritis Social History Household Members: Family Housing: House Alcohol intake: current Alcohol intake frequency: 3 or more drinks per day Alcohol type: beer Patient Tobacco Use Status: Current everyday Tobacco user Tobacco use type: Cigarette Cigarettes Per Day: 5 e-Cigarette/Vaping Use: Currently Using Substance Use Type: Marijuana service: No Current occupational status: employed 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 Code(s): F10.90 - Alcohol use, unspecified, uncomplicated Category: Medical Plan: Would continue counseling. He wishes possible in future. Coding Level of Care Code Est Pt Level 3 (14187) Diagnoses Alcohol use disorder F10.90
[2024-08-15 13:33] VITALS: PULSE 104; O2SAT 99
== END 2024-08-15 13:55 | disposition home or self-care (01) ==
LOC: HO.HCC 13:28
PROVIDERS: PCP Family Medicine; Visit Provider Internal Medicine
DX: F10.90 Alcohol use, unspecified, uncomplicated (principal)
CPT/HCPCS: 99213

== ENCOUNTER → 2024-08-15 13:27 | Outpatient (BNVA) | payer OTHER, SELFPAY | PROVIDERS: PCP Family Medicine; Visit Provider Internal Medicine | DX: F10.90 Alcohol use, unspecified, uncomplicated (principal) | CPT/HCPCS: 99212 ==

== ENCOUNTER 2024-09-05 18:04 | Emergency (ER) | payer OTHER, SELFPAY ==
[2024-09-05] VITALS (7 sets, daily range): BP systolic 103–129; BP diastolic 46–80; PULSE 87–110; RESP 16–22; TEMP 37.3–38.9; O2SAT 95–98; BMI 34.3
--- NOTE | ~2024-09-05 | CT_ITS ---
CLINICAL HISTORY: LLQ tenderness, diarrhea, R O diverticulitis CT abdomen and pelvis with contrast Comparison: None provided Findings: No consolidation or effusion. Lung bases are clear. Heart is normal size. Liver, gallbladder, adrenal glands, kidneys, spleen, and pancreas are within normal limits. Bowel loops are nondilated. The descending, sigmoid colon as well as rectum is mostly contracted however, with moderate circumferential wall thickening and mild surrounding inflammatory changes. Numerous prominent mesenteric lymph nodes are seen. No significant diverticulosis. Urinary bladder is partially distended however, moderate circumferential wall thickening. Normal appendix. No acute fracture. IMPRESSION: The descending, sigmoid colon as well as rectum is mostly contracted however, with moderate circumferential wall thickening and mild surrounding inflammatory changes. Numerous prominent mesenteric lymph nodes are seen. The findings are concerning for infectious or inflammatory colitis. Partially distended urinary bladder with moderate circumferential wall thickening, concerning for cystitis, correlate with urinalysis. This document has been electronically signed by: Aditya Alejo MD on 09/05/2024 23:17:43
--- NOTE | 2024-09-05 18:30 | ED.GENADULT ---
HPI - General Adult General Chief complaint: Abdominal Pain Stated complaint: body aches Time Seen by Provider: 09/05/24 19:11 Source: patient Mode of arrival: ambulatory Limitations: no limitations History of Present Illness ED Provider: Dr. Boaz Curiel HPI narrative: 24-year-old male who presents emergency department for evaluation of abdominal pain, nausea, fatigue, weakness, fever, chills and diarrhea starting at 10:00 hours. Patient had subjective fever and chills. He complains constant, sharp, pressure-like upper abdominal pain greater than 10/10 at its worse and 4/10 at the time of evaluation. Patient had nausea with no vomiting. He states he has had multiple episodes of loose, frequent, large volume watery stool. Denied any blood in his stool. Patient has not been on antibiotics recently in his not traveled outside of the country. Related Data Home Medications ?Medication ?Instructions ?Recorded ?Confirmed budesonide-formoterol HFA 160 2 puff inhalation BID 01/14/22 07/25/24 mcg-4.5 mcg/actuation aerosol inhaler (Symbicort) triamcinolone acetonide 0.1 % topical 07/19/22 07/25/24 topical ointment Previous Rx's ?Medication ?Instructions ?Recorded polyethylene glycol 3350 17 gram 17 g PO DAILY 14 days #14 ea 11/02/23 oral powder packet (Miralax) loratadine 10 mg tablet 10 mg PO DAILY 90 days #90 tabs 01/20/24 pramoxine 1 % topical foam 1 appl IN BID #15 grams 04/20/24 (Proctofoam) bupropion HCl 75 mg tablet 75 mg PO BID 30 days #60 tabs 06/26/24 naltrexone 50 mg tablet 50 mg PO DAILY 30 days #30 tabs 06/27/24 acamprosate 333 mg tablet,delayed 333 mg PO BID 30 days #60 tabs 07/18/24 release clonidine HCl 0.1 mg tablet 0.1 mg PO BID PRN alcohol 07/25/24 withdrawal 30 days #60 tabs albuterol sulfate 90 mcg/actuation 2 puff inhalation Q4-6H PRN for 08/02/24 aerosol inhaler (Ventolin HFA) wheezing #18 ea hydrocortisone 2.5 % topical cream 1 appl IN BID-QID PRN hemorrhoids 08/21/24 with perineal applicator 4 days #30 grams (Proctosol HC) inhalational spacing device #1 ea 08/24/24 levofloxacin 500 mg tablet 500 mg PO DAILY 5 days #5 tabs 09/06/24 metronidazole 500 mg tablet 500 mg PO TID 5 days #15 tabs 09/06/24 morphine 15 mg immediate release 15 mg PO Q4-6H PRN pain #14 tabs 09/06/24 tablet ondansetron 4 mg disintegrating 4 mg PO Q6-8H PRN nausea and 09/06/24 tablet vomiting #14 tabs Allergies Allergy/AdvReac Type Severity Reaction Status Date / Time ibuprofen (IBUPROFEN) Allergy Intermediate ABD PAIN Verified 09/05/24 18:29 AND REFLUX aspirin (ASA) Allergy Swelling Verified 09/05/24 18:29 avocado Allergy Swelling Verified 09/05/24 18:29 banana Allergy Anaphylaxis Verified 09/05/24 18:29 gluten Allergy Abdominal Verified 09/05/24 18:29 Pain house dust Allergy Unknown Verified 09/05/24 18:29 lactose Allergy Abdominal Verified 09/05/24 18:29 Pain venlafaxine AdvReac Mild vomiting, Verified 09/05/24 18:29 disorintation seasonal Allergy Unknown unknown Uncoded 07/25/24 14:14 Review of Systems Review of Systems: Yes all other systems are reviewed and are negative [facility] Past Medical History [facility] Narrative: social history: He denies tobacco use. He rarely drinks alcohol. He denies drug use. Medical History Acid reflux Anxiety Depression Asthma Epidermal inclusion cyst Constipation Surgical History Hx of colonoscopy H/O endoscopy Family History Family History Mother Anxiety Depression Maternal Grandfather Substance abuse Maternal Grandmother Anxiety Depression Father Arthritis Social History Social History Household Members: Family Housing: House Alcohol intake: current Alcohol intake frequency: does not drink Alcohol type: beer Patient Tobacco Use Status: Current everyday Tobacco user Tobacco use type: Cigarette Cigarettes Per Day: 5 Smoked in Last 30 Days: No e-Cigarette/Vaping Use: Currently Using Use of substances other than those prescribed or required for medical reasons: No Substance Use Type: Marijuana Advance Directives: No Advance Directives Information Provided: Yes Do you have a plan to hurt others: No Plan service: No Current occupational status: employed 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 Sexual orientation: Did not discuss Cognitive needs: No Hearing needs: No Vision needs: No Physical Exam ED Vital Signs: Vital Signs - 24 hr 09/05/24 18:27 09/05/24 19:07 09/05/24 21:07 Temperature 99.9 F 102.1 F H 99.1 F Pulse Rate 110 H 101 H 103 H Respiratory Rate 16 22 H 20 Blood Pressure 129/80 121/75 113/55 L Pulse Oximetry 95 98 98 Oxygen Delivery Method Room Air Room Air Room Air 09/05/24 21:19 09/05/24 21:30 Temperature Pulse Rate 99 87 Respiratory Rate Blood Pressure 116/57 L 103/46 L Pulse Oximetry Oxygen Delivery Method BMI result Body Mass Index 34.3 Vital signs revealed a rectal temperature of a 102.1 degrees F, elevated heart rate of 101 and elevated respiratory rate of 22. Blood pressure was normal at 121/75 with a normal O2 saturation of 98% on room air Exam: General: Awake, appears to be in distress secondary to his pain, speaking in a very soft voice Head: Normocephalic, atraumatic EENT: PERRL, Lids normal, sclera normal, conjunctiva normal, nose normal , ears normal, throat without erythema or exudates Neck: Supple, no adenopathy Lung: breath sounds symmetric, no wheezing, rales or rhonchi Chest: symmetric movement, nontender Heart: regular rate and rhythm, normal S1, S2 no murmurs or rubs Abdomen: soft, moderate epigastric, and left-sided tenderness, no rebound, no voluntary or involuntary guarding, nondistended, normal bowel sounds Back: no vertebral tenderness, no CVAT Extremities: no deformities, moves all extremities symmetrically Neuro: Awake, alert, oriented, normal speech, cranial nerves intact, moves all extremities symmetrically Psych: Pleasant, cooperative Course Course Course Narrative: RME, this is a rapid medical exam performed by Jag Hernandez please refer to primary provider for complete H&P- 24-year-old male presents for evaluation of multiple complaints including fevers, insomnia, abdominal pain with nausea. His abdominal pain started this morning but he is complaining of insomnia for the last 2 days. The patient is answering questions in triage but somewhat lethargic and giving short answers. Plan for labs including blood cultures given his temp of 99.9. Viral swabs ordered, a tox screen was also ordered. Medications Administered Discontinued Medications Generic Name Dose Route Start Last Admin Trade Name Ricky PRN Reason Stop Dose Admin Acetaminophen 975 mg 09/05/24 19:28 09/05/24 19:46 Acetaminophen 325 Mg Tablet PO 09/05/24 19:29 975 mg ONCE STA Administration Sodium Chloride 1,776 mls @ 1,776 mls/hr 09/05/24 19:28 09/05/24 21:00 Ns IV 09/05/24 20:27 Infused .Q1H STA Infusion Sodium Chloride 1,000 mls @ 999 mls/hr 09/05/24 21:45 09/05/24 23:03 Ns IV 09/05/24 22:45 Infused .Q1H1M STA Infusion Iohexol 85 ml 09/05/24 22:15 09/05/24 22:15 Iohexol 350 Mg/Ml 100 Ml Infus..Btl IV 09/05/24 22:16 85 ml ONCE ONE Administration Morphine Sulfate 4 mg 09/05/24 19:28 09/05/24 19:46 Morphine Sulfate 4 Mg/Ml Cartridge IVPUSH 09/05/24 19:29 4 mg ONCE STA Administration Protocol Morphine Sulfate 4 mg 09/05/24 21:45 09/05/24 22:25 Morphine Sulfate 4 Mg/Ml Cartridge IVPUSH 09/05/24 21:46 4 mg ONCE STA Administration Protocol Ondansetron HCl 4 mg 09/05/24 19:28 09/05/24 19:46 Ondansetron Hcl 4 Mg/2 Ml Vial IVPUSH 09/05/24 19:29 4 mg ONCE ONE Administration Medical Decision Making Medical Decision Making MDM Narrative: 24-year-old male who presents emergency department for evaluation of abdominal pain, nausea, fatigue, weakness, fever, chills and diarrhea starting at 10:00 hours. Patient had subjective fever and chills. He complains constant, sharp, pressure-like upper abdominal pain greater than 10/10 at its worse and 4/10 at the time of evaluation. Patient had nausea with no vomiting. He states he has had multiple episodes of loose, frequent, large volume watery stool. Denied any blood in his stool. Patient has not been on antibiotics recently in his not traveled outside of the country. Vital signs revealed a rectal temperature of a 102.1 degrees F, elevated heart rate of 101 and elevated respiratory rate of 22. patient had moderate epigastric and left-sided abdominal tenderness. Differential diagnosis: Includes but is not limited to Viral syndrome, COVID-19, influenza, RSV, gastritis, enteritis, C difficile colitis, infectious diarrhea, anemia, electrolyte abnormalities Course: 19:28 hours My independent interpretation patient's laboratory evaluation is as follows: WBC elevated 15,200. bilirubin elevated 1.2. Lactic acid was normal at 0.9. LFTs were normal. COVID-19, influenza and RSV tests were negative. Ethanol level was below detectable limits. Urinalysis was negative. Urine tox screen was negative. patient was made a sepsis alert based on his vital signs. He was treated with a normal saline bolus 30 cc/kilogram based on his ideal body weight since he is obese with an elevated BMI of 34.3 kg per m2. He was also given morphine 4 mg IV, Zofran 4 mg IV and Tylenol 975 mg orally. 22:00 patient states that his pain is starting to come back therefore he was given another dose of morphine 4 mg IV and he was given 1/3 L of normal saline IV. CT scan of the abdomen pelvis is pending. 23:[address] scan of and his acute presentation, I suspect that the patient has an infectious process therefore he was given Levaquin 500 mg orally and Flagyl 500 mg orally. I did discuss these findings with the patient. The patient was prescribed Levaquin 500 mg q.day x5 days, metronidazole 500 mg 3 times a day for 5 days, Zofran 4 mg ODT every 6-8 hours as needed for nausea and vomiting and morphine 15 mg every 6 hours as needed for pain. He was given printed and verbal instructions and discharged home. Admission/Observation Consideration of admission/observation: Escalation of care including admission/observation considered (yes) Lab Data MDM Lab Attestation statement: I reviewed the patient's lab results. 09/05/24 18:48 09/05/24 18:48 Labs: Lab Results 09/05/24 09/05/24 09/05/24 Range/Units 18:47 18:48 20:03 WBC 15.2 H (4.8-10.8) X10*3/uL RBC 5.45 (4.60-5.80) X10*6/uL Hgb 15.1 (14.0-18.0) g/dl Hct 43.5 (42.0-52.0) % MCV 79.8 L (80.0-98.0) fL MCH 27.7 (27.0-33.0) pg MCHC 34.7 (31.0-36.0) g/dl RDW 14.2 (11.0-16.0) % Plt Count 289 (160-400) X10*3/uL MPV 9.2 L (9.4-12.4) fL Immature Gran % (Auto) 0.3 (0.0-0.4) % Neut % (Auto) 89.4 H (45-73) % Lymph % (Auto) 3.4 L (20-40) % [place] % (Auto) 6.7 (2-11) % Eos % (Auto) 0.1 (0-4) % Baso % (Auto) 0.1 (0-2) % Lymph # (Auto) 0.5 L (1.2-4.9) X10*3/uL [place] # (Auto) 1.0 (0.1-1.2) X10*3/uL Eos # (Auto) 0.0 (0.0-0.4) X10*3/uL Baso # (Auto) 0.0 (0.0-0.2) X10*3/uL Abs Immat Gran (auto) 0.05 H (0.00-0.03) X10*3/uL Absolute Neuts (auto) 13.6 H (2.0-8.3) x10*3/uL Absolute Nucleated RBC 0.000 (0.0-0.012) X10*3/uL Nucleated RBC % (auto) 0.0 (0.0-0.2) /100WBC Sodium 138 (135-145) mmol/L Potassium 3.8 (3.3-5.1) mmol/L Chloride 103 (96-108) mmol/L Carbon Dioxide 24 (22-29) mmol/L Anion Gap 15 (12-20) BUN 15 (9-16) mg/dL Creatinine 1.00 (0.5-1.4) mg/dL Estim Creat Clear Calc 117.6 Estimated GFR > 60 Random Glucose 98 (60-115) mg/dL Lactic Acid 0.9 (0.5-2.0) mmol/L Calcium 9.9 (8.4-10.2) mg/dL Magnesium 1.7 (1.6-2.6) mg/dL Total Bilirubin 1.2 H (0.0-1.0) mg/dL AST 30 (5-37) U/L ALT 45 H (0-40) U/L Alkaline Phosphatase 68 (39-117) U/L Total Creatine Kinase 73 (38-174) U/L Troponin I High Sens < 2.7 (<3.5-35.0) ng/L Total Protein 7.9 (6.5-8.0) g/dL Albumin 5.1 H (3.5-5.0) g/dL Lipase 16 (8-78) U/L Urine Color Yellow Urine Appearance Clear Urine pH 5.5 (5.0-9.0) Ur Specific [place] 1.025 (1.005-1.025) Urine Protein Negative (Neg-Trace) mg/dL Urine Glucose (UA) Negative (Negative) mg/dL Urine Ketones 40 (Negative) mg/dL Urine Blood Trace H (Negative) Urine Nitrite Negative (Negative) Ur Leukocyte Esterase Negative (Negative) Urine RBC 0-2 (0-2) /HPF Urine WBC 0-5 (0-5) /HPF Ur Squamous Epith Cells 0-2 (0-2) /HPF Urine Bacteria None Seen (None Seen) Hyaline Casts 0-2 (0-2) /LPF Urine Opiates Screen Not Detected (Not Detect) Ur Buprenorphine Scrn Not Detected (Not Detect) ng/mL Ur Oxycodone Screen Not Detected (Not Detect) ng/mL Urine Methadone Screen Not Detected (Not Detect) ng/mL Urine Fentanyl Screen Not Detected (Not Detect) Ur Barbiturates Screen Not Detected (Not Detect) Ur Phencyclidine Scrn Not Detected (Not Detect) Ur Amphetamines Screen Not Detected (Not Detect) U Benzodiazepines Scrn Not Detected (Not Detect) Urine Cocaine Screen Not Detected (Not Detect) U Marijuana (THC) Screen Not Detected (Not Detect) Ethyl Alcohol < 10 mg/dL C. difficile Tox B Gene NEGATIVE (Negative) Influenza Type A (PCR) NEGATIVE (Negative) Influenza Type B (PCR) NEGATIVE (Negative) RSV RNA Qual (PCR) NEGATIVE (Negative) SARS-CoV-2 RNA (RT-PCR) NEGATIVE (Negative) Radiology Impression Discussion of test interpretation with radiology: I have reviewed the radiologist's reading. Radiologist Impression: CT abdomen and pelvis with contrast Comparison: None provided Findings: No consolidation or effusion. Lung bases are clear. Heart is normal size. Liver, gallbladder, adrenal glands, kidneys, spleen, and pancreas are within normal limits. Bowel loops are nondilated. The descending, sigmoid colon as well as rectum is mostly contracted however, with moderate circumferential wall thickening and mild surrounding inflammatory changes. Numerous prominent mesenteric lymph nodes are seen. No significant diverticulosis. Urinary bladder is partially distended however, moderate circumferential wall thickening. Normal appendix. No acute fracture. IMPRESSION: The descending, sigmoid colon as well as rectum is mostly contracted however, with moderate circumferential wall thickening and mild surrounding inflammatory changes. Numerous prominent mesenteric lymph nodes are seen. The findings are concerning for infectious or inflammatory colitis. Partially distended urinary bladder with moderate circumferential wall thickening, concerning for cystitis, correlate with urinalysis. This document has been electronically signed by: Aditya Alejo MD on 09/05/2024 23:17:43 Independent Historian Clinical information obtained from an independent historian. History obtained from or confirmed by: Other ( girlfriend) Prescription Management I considered prescription management with: Pain Medication ( morphine), Antibiotic ( Levaquin and Flagyl) and Other ( antiemetic: Zofran) Chronic Conditions Patient?s care impacted by: Other ( asthma) Critical Care Time Critical Care Time Critical Care Time: Yes Total Critical Care Time: 35 Attestation: Critical Care: The patient was critically ill with a high probability of imminent or life threatening deterioration. I spent greater than 30 minutes of discontinuous time evaluating the patient,delivering critical care at the bedside, discussing and evaluating pertinent data with consultants. Critical care time does not include time spent performing separately billable procedures or teaching. Total time spent performing critical care was 35 minutes. Discharge Plan Discharge Clinical Impression: Acute colitis, Fever Patient Disposition: Home, Self-Care Instructions: Colitis (ED) Additional Instructions: Your white blood cell count was elevated at 15,200 otherwise your blood work was unremarkable. Your Clostridium difficile test was negative. Your GI panel is pending. this test should come back later today ( 09/06/2024). if these tests are negative, I still want you to complete your antibiotics as prescribed Your CT scan was concerning for inflammation/wall thickening (colitis) of your sigmoid colon. Given your fever and elevated white blood cell count, I am concerned that you may have a bacterial infection therefore I am treating you with 2 antibiotics. Take Levaquin (levofloxacin) 500 mg once a day for 5 days. Take your next dose tomorrow evening (09/06/2024) Take Flagyl (metronidazole) 500 mg 3 times a day for 5 days. Take your next dose tomorrow morning. Take Tylenol (acetaminophen) 500 mg pills, 2 pills every 6 hours as needed for pain. For pain not relieved by Tylenol take morphine 15 mg pills, 1 pill every 6 hours as needed for pain. This medication will make you sleepy, do not drive or work while taking this medication. Morphine is a narcotic medication and can be addicting. If you are concerned about addiction you can ask the pharmacist for less pills or do not get this prescription filled. Take Zofran ODT 4 mg pills, 1 pill dissolved in your mouth every 8 hours as needed for nausea and vomiting. Follow-up with your doctor in 2 days. Please return to the emergency department if your symptoms get worse or if you develop any symptoms that are concerning to you. Prescriptions: New levofloxacin 500 mg tablet 500 mg PO DAILY 5 Days Qty: 5 0RF morphine 15 mg tablet 15 mg PO Q4-6H PRN (Reason: pain) Qty: 14 0RF Rx Instructions: Partial Fill upon patient request. ondansetron 4 mg tablet,disintegrating 4 mg PO Q6-8H PRN (Reason: nausea and vomiting) Qty: 14 0RF metronidazole 500 mg tablet 500 mg PO TID 5 Days Qty: 15 0RF No Action loratadine 10 mg tablet 10 mg PO DAILY 90 Days Qty: 90 3RF bupropion HCl 75 mg tablet 75 mg PO BID 30 Days Qty: 60 1RF albuterol sulfate [Ventolin HFA] 90 mcg/actuation HFA aerosol inhaler 2 puff inhalation Q4-6H PRN (Reason: for wheezing) Qty: 18 3RF hydrocortisone [Proctosol HC] 2.5 % cream with perineal applicator 1 appl IN BID-QID PRN (Reason: hemorrhoids) 4 Days Qty: 30 0RF (DME) inhalational spacing device Spacer See Rx Instructions .Route Qty: 1 0RF Rx Instructions: As directed pramoxine [Proctofoam] 1 % foam 1 appl IN BID Qty: 15 0RF polyethylene glycol 3350 [Miralax] 17 gram powder in packet 17 g PO DAILY 14 Days Qty: 14 0RF triamcinolone acetonide 0.1 % ointment topical budesonide-formoterol [Symbicort] 160-4.5 mcg/actuation HFA aerosol inhaler 2 puff inhalation BID naltrexone 50 mg tablet 50 mg PO DAILY 30 Days Qty: 30 0RF clonidine HCl 0.1 mg tablet 0.1 mg PO BID PRN (Reason: alcohol withdrawal) 30 Days Qty: 60 0RF acamprosate 333 mg tablet,delayed release (DR/EC) 333 mg PO BID 30 Days Qty: 60 3RF Rx Instructions: administer with mid-day and evening meals Print Language: Luxembourgish
--- NOTE | 2024-09-05 18:32 | ECG_ITS ---
Test Reason : WEAKNESS Blood Pressure : */* mmHG Vent. Rate : 113 BPM Atrial Rate : 113 BPM P-R Int : 122 ms QRS Dur : 80 ms QT Int : 294 ms P-R-T Axes : 30 23 19 degrees QTcB Int : 403 ms Sinus tachycardia Minimal voltage criteria for LVH, may be normal variant ( R in aVL ) Borderline ECG When compared with ECG of 06-Mar-2023 17:48, No significant change was found Referred By: Juanpablo Hernandez Electronically Signed By: Ventura Gilliam
[2024-09-05 18:59] LABS: MANUAL DIFF FLAG NO
[2024-09-05 19:01] LABS: Basophils Percent Auto 0.1 % (0-2); Eosinophils Percent Auto 0.1 % (0-4); Hematocrit 43.5 % (42.0-52.0); Hemoglobin 15.1 g/dl (14.0-18.0); Imm Gran Abs Auto 0.05 X10*3/uL (0.00-0.03); Imm Gran Pct Auto 0.3 % (0.0-0.4); Lymphocytes Absolute Auto 0.5 X10*3/uL (1.2-4.9); Lymphocytes Percent Auto 3.4 % (20-40); Mean Corpuscular HGB Conc 34.7 g/dl (31.0-36.0); Mean Corpuscular Hemoglobin 27.7 pg (27.0-33.0); Mean Corpuscular Volume 79.8 fL (80.0-98.0); Mean Platelet Volume 9.2 fL (9.4-12.4); Monocytes Percent Auto 6.7 % (2-11); Neutrophils Absolute Auto 13.6 x10*3/uL (2.0-8.3); Neutrophils Percent Auto 89.4 % (45-73); Platelet Count 289 X10*3/uL (160-400); Red Blood Count 5.45 X10*6/uL (4.60-5.80); Red Cell Distribution Width 14.2 % (11.0-16.0); White Blood Count 15.2 X10*3/uL (4.8-10.8)
[2024-09-05 19:20] LABS: Alanine Aminotransferase 45 U/L (0-40); Albumin Level 5.1 g/dL (3.5-5.0); Alkaline Phosphatase 68 U/L (39-117); Anion Gap 15 (12-20); Aspartate Amino Transferase 30 U/L (5-37); Bilirubin Total 1.2 mg/dL (0.0-1.0); Blood Urea Nitrogen 15 mg/dL (9-16); Calcium 9.9 mg/dL (8.4-10.2); Carbon Dioxide 24 mmol/L (22-29); Chloride 103 mmol/L (96-108); Creatinine Clr Calc Pharmacy 117.6; Estimated Glomerular Filt Rate > 60; Ethanol < 10 mg/dL; Glucose Random 98 mg/dL (60-115); Lipase 16 U/L (8-78); Magnesium 1.7 mg/dL (1.6-2.6); Potassium 3.8 mmol/L (3.3-5.1); Sodium 138 mmol/L (135-145); Total Protein 7.9 g/dL (6.5-8.0)
[2024-09-05 19:20] LABS: Lactic Acid 0.9 mmol/L (0.5-2.0)
--- NOTE | 2024-09-05 19:20 | PC.NURSE ---
pt was brought to ed3 from via wheelchair, pt was laying/staring off to the side blinking and tracking staff in room but not responding to questions. pt states he could not stand up to get to the bed however when assisting to get up from wheelchair pt taking steps to stretcher. low grade temp oral, agreeable to rectal temp. 102.1F. pt reports nausea, states pain has resolved, was worse this morning. hx of similar sx but 3 years since last episode. +diarrhea. on arrival to room MD cabrera made aware of vitals ?sepsis. iv established to BRENNAN. pt is on manager monitoring. call michael within reach.
[2024-09-05 19:27] LABS: Troponin-I High Sensitivity < 2.7 ng/L (<3.5-35.0)
[2024-09-05 19:39] LABS: Influenza A PCR NEGATIVE (Negative); Influenza B PCR NEGATIVE (Negative); Resp Syncy Virus RNA Qual PCR NEGATIVE (Negative); SARS COV2 PCR INHOUSE NEGATIVE (Negative)
[2024-09-05] MEDS: ondansetron HCL 4 MG/2 ML VIAL IVPUSH (19:46)
[2024-09-05] MEDS: SODIUM CHLORIDE 1776 ML IV (19:46)
[2024-09-05] MEDS: Acetaminophen 325 MG TABLET 975 MG PO (19:46)
[2024-09-05] MEDS: Morphine Sulfate 4 MG/ML CARTRIDGE IVPUSH ×2 (19:46→22:25)
[2024-09-05 20:13] LABS: Appearance Urine Clear; Color Urine Yellow; Glucose Urine UA Negative (Negative); Leukocyte Esterase Urine Negative (Negative); Nitrite Urine Negative (Negative); PH 5.5 (5.0-9.0); Specific Gravity - Urine 1.025 (1.005-1.025); UMIC TRIGGER UACC YES; Urine Blood Trace (Negative); Urine Ketones 40 mg/dL (Negative); Urine Protein Negative (Neg-Trace)
[2024-09-05 20:18] LABS: Bacteria Urine None Seen (None Seen); Hyaline Casts Urine 0-2 /LPF (0-2); RBC Urine 0-2 /HPF (0-2); Squamous Epithelial Cell Urine 0-2 /HPF (0-2); WBC Urine 0-5 /HPF (0-5)
[2024-09-05 20:22] LABS: Amphetamine Screen Urine Not Detected (Not Detect); Barbiturates, Urine Not Detected (Not Detect); Benzodiazepines Screen Urine Not Detected (Not Detect); Buprenorphine Scr Not Detected (Not Detect); Cannabinoid Screen Urine Not Detected (Not Detect); Cocaine Screen Urine Not Detected (Not Detect); Fentanyl, urine Not Detected (Not Detect); Methadone Screen, Urine Not Detected (Not Detect); Opiate Screen Urine Not Detected (Not Detect); Oxycodone Screen Urine Not Detected (Not Detect); Phencyclidine Screen Urine Not Detected (Not Detect)
[2024-09-05 21:00] LABS: CDiff Gene PCR NEGATIVE (Negative)
[2024-09-05] MEDS: iohexoL 350 MG/ML 100 ML INFUS..BTL 85 ML IV (22:15)
[2024-09-05] MEDS: 0.9 % Sodium Chloride 1,000 ML 999 ML IV (22:25)
[2024-09-06] MEDS: levoFLOXacin 500 MG TABLET PO (00:38)
[2024-09-06] MEDS: metroNIDAZOLE 500 MG TABLET PO (00:38)
[2024-09-06] MEDS: Morphine Sulfate 4 MG/ML CARTRIDGE IVPUSH (00:49)
[2024-09-06 01:03] VITALS: BP 108/56; PULSE 87; RESP 16; TEMP 37.1; O2SAT 98
== END 2024-09-06 01:04 | disposition home or self-care (01) ==
PROVIDERS: Physician Assistant; Emergency Provider Emergency Medicine Emergency Medical Services; PCP Family Medicine
DX: K52.9 Noninfective gastroenteritis and colitis, unspecified (principal); R50.9 Fever, unspecified; G47.00 Insomnia, unspecified; D72.829 Elevated white blood cell count, unspecified; J45.909 Unspecified asthma, uncomplicated; F17.210 Nicotine dependence, cigarettes, uncomplicated; F12.90 Cannabis use, unspecified, uncomplicated; Z03.818 Encounter for observation for suspected exposure to other biological agents ruled out
CPT/HCPCS: 0241U; 74177; 80053; 80307; 81001; 82550; 83605; 83690; 83735; 84484; 85025; 87040; 87493; 93005; 96361; 96374; 96375; 96376; 99284; 99285; 99291; J2270; J2405; Q9967

== ENCOUNTER → 2024-09-05 18:32 | Outpatient (BNV) | payer OTHER, SELFPAY | PROVIDERS: Emergency Provider Emergency Medicine Emergency Medical Services; PCP Family Medicine; Visit Provider Internal Medicine Cardiovascular Disease | DX: R00.0 Tachycardia, unspecified (principal) | CPT/HCPCS: 93010 ==

== ENCOUNTER → 2024-09-05 20:53 | Outpatient (BNV) | payer OTHER, SELFPAY | PROVIDERS: Emergency Provider Emergency Medicine Emergency Medical Services; PCP Family Medicine; Visit Provider Student in an Organized Health Care Education/Training Program | DX: K63.89 Other specified diseases of intestine (principal) | CPT/HCPCS: 74177 ==

== ENCOUNTER 2024-09-12 14:51 | Outpatient (AMB) | payer OTHER, SELFPAY ==
[2024-09-12 14:57] VITALS: PULSE 121; O2SAT 98
--- NOTE | 2024-09-12 14:57 | MHC.OFFVIS ---
Vital Signs 09/12/24 14:57 Pulse 121 H Pulse Source Pulse Oximeter Pulse Oximetry (%) 98 Oxygen Delivery Method Room Air Intake Visit Reasons: MAT Allergies ibuprofen (IBUPROFEN) Allergy (Intermediate, Verified 09/12/24 14:58) ABD PAIN AND REFLUX aspirin (ASA) Allergy (Verified 09/12/24 14:58) Swelling avocado Allergy (Verified 09/12/24 14:58) Swelling banana Allergy (Verified 09/12/24 14:58) Anaphylaxis gluten Allergy (Verified 09/12/24 14:58) Abdominal Pain house dust Allergy (Verified 09/12/24 14:58) Unknown lactose Allergy (Verified 09/12/24 14:58) Abdominal Pain venlafaxine Adverse Reaction (Mild, Verified 09/12/24 14:58) vomiting, disorintation seasonal Allergy (Unknown, Uncoded 07/25/24 14:14) unknown HPI HPI MAT: Details: He has no concerns. He has been on same dosing [facility] Medical History Laboratory tests ordered as part of a complete physical exam (CPE) Fatigue Throat tightness Dizziness Atopic dermatitis Hypersomnolence Difficulty sleeping Asthma Asthma exacerbation Bruising Pain in right hip Anterior knee pain Right shoulder pain Immunization counseling Screen for STD (sexually transmitted disease) COVID-19 Family planning Balanitis Impacted cerumen of both ears Skipped heart beats Alcohol intoxication Adjustment reaction with mixed disturbance of emotions and conduct Depression Acid reflux Anxiety Epidermal inclusion cyst Constipation Surgical History Hx of colonoscopy H/O endoscopy Family History Mother Anxiety Depression Maternal Grandfather Substance abuse Maternal Grandmother Anxiety Depression Father Arthritis Social History Household Members: Family Housing: House Alcohol intake: current Alcohol intake frequency: does not drink Alcohol type: beer Patient Tobacco Use Status: Current everyday Tobacco user Tobacco use type: Cigarette Cigarettes Per Day: 5 e-Cigarette/Vaping Use: Currently Using Substance Use Type: Marijuana service: No Current occupational status: employed 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 Medications: New disulfiram 250 mg PO DAILY 30 tabs 5RF 30 days gabapentin 100 mg PO TID 90 caps 1RF 30 days Coding Level of Care Code Est Pt Level 3 (87161) Diagnoses Alcohol use disorder F10.90
== END 2024-09-12 15:44 | disposition home or self-care (01) ==
LOC: HO.HCC 14:51
PROVIDERS: PCP Family Medicine; Visit Provider Internal Medicine
DX: F10.90 Alcohol use, unspecified, uncomplicated (principal)
CPT/HCPCS: 99213

== ENCOUNTER → 2024-09-12 14:51 | Outpatient (BNVA) | payer OTHER, SELFPAY | PROVIDERS: PCP Family Medicine; Visit Provider Internal Medicine | DX: F10.90 Alcohol use, unspecified, uncomplicated (principal) | CPT/HCPCS: 99212 ==

== ENCOUNTER 2024-09-19 11:27 | Outpatient (AMB) | payer OTHER, SELFPAY ==
--- NOTE | 2024-09-19 11:58 | A.OFFPC_ITS ---
Vital Signs 09/19/24 12:07 Height 5 ft 5 in Weight 175 lb 2 oz BMI 29.1 BP 116/78 Blood Pressure Location Lt brachial Position Sitting Respiration 16 Pulse 88 Pulse Source Pulse Oximeter Temp 98.8 F Temp Source Temporal Artery Scan Pulse Oximetry (%) 95 Oxygen Delivery Method Room Air Intake Visit Reasons: f/u abd. pain (lyft) Intake Note: Jaya presents in the office for an ER Visit Follow up. Went to the ER 2 Weeks ago (September 12) Allergies ibuprofen (IBUPROFEN) Allergy (Intermediate, Verified 09/19/24 12:00) ABD PAIN AND REFLUX aspirin (ASA) Allergy (Verified 09/19/24 12:00) Swelling avocado Allergy (Verified 09/19/24 12:00) Swelling banana Allergy (Verified 09/19/24 12:00) Anaphylaxis gluten Allergy (Verified 09/19/24 12:00) Abdominal Pain house dust Allergy (Verified 09/19/24 12:00) Unknown lactose Allergy (Verified 09/19/24 12:00) Abdominal Pain venlafaxine Adverse Reaction (Mild, Verified 09/19/24 12:00) vomiting, disorintation seasonal Allergy (Unknown, Uncoded 09/19/24 12:00) unknown Tobacco use date assessed: 09/19/24 Dental Screening Dental Screen Date: 09/19/24 Did you have a dental visit in the last 12 months?: Yes Did you have a dental problem in the last 6 months where you did not have access to dental care?: No Was dental information given to patient?: Patient has dentist HPI f/u abd. pain (lyft) HPI Details 24 y/o male presents to f/u alcohol abus e, abd. pain. Recent ED visit 09/05/24 for abd. pain, nausea, fatigue, weakness, fever/chills and diarrhea. CT scan was concerning for inflammation/colitis of sigmoid colon. They had been concerned about bacterial infection due to fever, elevated WBC. Was given levofloxacin, metronidazole. Has been following up with Dr. Hadley. Was prescribed disulfiram, gabapentin. Ongoing anxiety/depression. [facility] Medical History Laboratory tests ordered as part of a complete physical exam (CPE) Fatigue Throat tightness Dizziness Atopic dermatitis Hypersomnolence Difficulty sleeping Asthma Asthma exacerbation Bruising Pain in right hip Anterior knee pain Right shoulder pain Immunization counseling Screen for STD (sexually transmitted disease) COVID-19 Family planning Balanitis Impacted cerumen of both ears Skipped heart beats Alcohol intoxication Adjustment reaction with mixed disturbance of emotions and conduct Depression Acid reflux Anxiety Epidermal inclusion cyst Constipation Surgical History Hx of colonoscopy H/O endoscopy Family History Mother Anxiety Depression Maternal Grandfather Substance abuse Maternal Grandmother Anxiety Depression Father Arthritis Social History (Updated 09/19/24 @ 12:07 by Cat Camacho MA) Household Members: Family Housing: House Alcohol intake: current Alcohol intake frequency: does not drink Alcohol type: beer Patient Tobacco Use Status: Current everyday Tobacco user Tobacco use type: Cigarette Cigarettes Per Day: 5 e-Cigarette/Vaping Use: Currently Using Substance Use Type: Marijuana service: No Current occupational status: employed 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 Sexual orientation: Did not discuss Cognitive needs: No Hearing needs: No Vision needs: No Questionnaire Thrive Questionnaire Date Thrive assessed: 07/25/24 I am a: Patient What is your living situation today?: I have a steady place to live Within the past 12 months, did the food you bought not last and you didn't have the money to get more?: Never true Within the past 12 months, did you worry whether your food would run out before you got money to buy more?: Never true Do you have trouble paying for medicines?: I choose not to answer this question Do you have trouble getting transportation to medical appointments?: Yes Do you have trouble paying your heating and electricity bill?: No Do you have trouble taking care of your child, family member or friend?: I choose not to answer this question Do you have trouble with day-to-day activities such as bathing, preparing meals, shopping, managing finances, etc.?: No Are you currently unemployed and looking for a job?: No Are you interested in more education?: I choose not to answer this question Please select the resources that you would like help with: Transportation Currently or been in a relationship where the following occur: I choose not to answer THRIVE Score: 1 PAULA-7 AMB Questionnaire PAULA-7 Date PAULA - 7 assessed: 04/10/24 Source: Developed by Drs. Ricky Jennings, Laura Giron, Khoa Steiner and colleagues, with an educational claude from [employer]. Review of Systems Const Denies chills, Denies fatigue, Denies fever(s), Denies headache(s) and Denies weakness ENT Denies dizziness and Denies headache(s) Card Denies dyspnea Resp Denies cough, Denies dyspnea, Denies wheezing and Denies other (shortness of breath) Musc Denies numbness and Denies tingling Neuro Denies dizziness, Denies headache(s), Denies numbness, Denies tingling and Denies weakness Psych Reports anxiety and Reports depression Endo Denies fatigue Aller/Immun Denies wheezing Physical exam (Primary Care) Vital Signs: Last Vital Signs Temp 98.8 F 09/19/24 12:07 Pulse 88 09/19/24 12:07 Resp 16 09/19/24 12:07 BP 116/78 09/19/24 12:07 Pulse Ox 95 09/19/24 12:07 Oxygen Delivery Method Room Air 09/19/24 12:07 BMI result Body Mass Index 29.1 Tobacco/Smoking Status: Tobacco use Status Tobacco use date assessed 09/19/24 09/19/24 12:07 Patient Tobacco Use Status Current everyday Tobacco 09/19/24 12:07 Tobacco use type Cigarette 09/19/24 12:07 e-Cigarette/Vaping Use Currently Using 09/19/24 12:07 Thrive Assessment: Date of Thrive Assessment Date Thrive assessed 07/25/24 09/19/24 12:02 Currently or been in a relationship where the following occur: I choose not to answer Const General: well developed; No acute distress Nutritional Appearance: well nourished Orientation/consciousness: patient oriented x3 HENMT Head: Yes normocephalic and Yes atraumatic Eyes General: appearance normal, both eyes and all related structures Pupils: Equal, round and reactive pupils present EOM: EOMs intact bilaterally Resp Effort & Inspection: normal respiratory effort Neuro General: patient oriented x3 and gait normal Cranial nerves: Yes Equal, round and reactive pupils present Psych Affect: normal affect Coding Level of Care Code Est Pt Level 4 (16964) Diagnoses Alcohol use disorder F10.90 Acute colitis K52.9 Abdominal pain R10.9 Depression with anxiety F41.8 Assessment & Plan Assessment & Plan (1) Alcohol use disorder: Comment: He is drinking about the same Code(s): F10.90 - Alcohol use, unspecified, uncomplicated Category: Medical (2) Acute colitis: Code(s): K52.9 - Noninfective gastroenteritis and colitis, unspecified Category: Medical (3) Abdominal pain: Code(s): R10.9 - Unspecified abdominal pain Category: Medical (4) Depression with anxiety: Code(s): F41.8 - Other specified anxiety disorders Category: Medical Plan Ongoing?severe?anxiety?and?depression partly?due?to?alcohol?and?substance?use/abuse. Also?alcoholic?gastritis?and?abdominal?pain. [facility]and?has?upcoming?follow-up. He?was?referred?to?gastroenterology?and?appointment?was?rescheduled?to?later?toelyssa ay. At?this?point,?patient?is?not?ready?to?return?to?work. I?am?extending?FMLA?through?to?the?2nd?week?of November.??Continuous?leave?from?05/29/2024?through?November??2024?with?tent ative?return?date?of?11/26/2024. I?will?follow-up?with?him?in?the?1st?week?of?November. Spoke?with?patient?regarding continuously.??My?plan?is?that?after?this period?of?continuous?leave,?we?consider?something?more?like intermittent?leave?as?needed, if?he?is?needing?additional?help. We?discussed?that?it?is?not?alwa ys?good?idea?to?be?at?home?when?trying?to?deal?with?an?alcohol?and?substance?abu se?issue. Will?re-evaluate?in?readdress?at?next?visit. FMLA?extension?completed.
[2024-09-19 12:07] VITALS: BP 116/78; PULSE 88; RESP 16; TEMP 37.1; O2SAT 95; BMI 29.1
== END 2024-09-19 13:01 | disposition home or self-care (01) ==
LOC: HO.HMCFM 11:27
PROVIDERS: PCP Family Medicine; Visit Provider Family Medicine
DX: F10.90 Alcohol use, unspecified, uncomplicated (principal); K52.9 Noninfective gastroenteritis and colitis, unspecified; R10.9 Unspecified abdominal pain; F41.8 Other specified anxiety disorders

== ENCOUNTER → 2024-09-19 11:27 | Outpatient (BNVA) | payer OTHER, SELFPAY | PROVIDERS: PCP Family Medicine; Visit Provider Family Medicine | DX: R10.84 Generalized abdominal pain (principal); K58.9 Irritable bowel syndrome, unspecified; F10.10 Alcohol abuse, uncomplicated; K64.9 Unspecified hemorrhoids; K21.9 Gastro-esophageal reflux disease without esophagitis; J45.909 Unspecified asthma, uncomplicated; F17.210 Nicotine dependence, cigarettes, uncomplicated; F41.8 Other specified anxiety disorders | CPT/HCPCS: 99202; 99212 ==

== ENCOUNTER 2024-09-19 13:58 | Outpatient (AMB) | payer OTHER, SELFPAY ==
--- NOTE | 2024-09-19 14:01 | MHC.OFFVIS ---
Vital Signs 09/19/24 14:07 Height 5 ft 5 in Weight 176 lb 5.917 oz BMI 29.3 BP 134/79 Blood Pressure Location Lt brachial Position Sitting Pulse 100 Intake Visit Reasons: Irritable bowel syndrome Intake Note: Jaya presents in the office as a IBS new patient. CC: States he is an active alcoholic and he states he was told he had an infection - issues with his bowels his whole life. Age of 21 he had a EGD and COLO. Sprayer Hand Required: No Allergies ibuprofen (IBUPROFEN) Allergy (Intermediate, Verified 09/19/24 17:12) ABD PAIN AND REFLUX aspirin (ASA) Allergy (Verified 09/19/24 17:12) Swelling avocado Allergy (Verified 09/19/24 17:12) Swelling banana Allergy (Verified 09/19/24 17:12) Anaphylaxis gluten Allergy (Verified 09/19/24 17:12) Abdominal Pain house dust Allergy (Verified 09/19/24 17:12) Unknown lactose Allergy (Verified 09/19/24 17:12) Abdominal Pain venlafaxine Adverse Reaction (Mild, Verified 09/19/24 17:12) vomiting, disorintation seasonal Allergy (Unknown, Uncoded 09/19/24 17:12) unknown HPI HPI Irritable bowel syndrome: Details: Jaya is a 24-year-old male with depression, anxiety, chronic asthma and colitis who presents for generalized abdominal pain, more pronounced on the left side, following a recent ER visit on September 05 for colitis. He reports ongoing severe abdominal pain despite antibiotic treatment from the ER visit. The patient describes the abdominal pain as a twisting pressure that is sharp and very intense. He notes that the pain does not improve after bowel movements. Jaya reports irregular bowel habits, alternating between constipation and periods of increased frequency. During a good week, he has bowel movements 2-3 times a day with soft consistency. However, he often experiences constipation for a few days followed by days of increased frequency. He has been using laxatives intermittently for about a year to manage constipation. Jaya reports blood in his stools since May, occurring 1-2 times, both bright red and dark in color, visible with wiping and in the toilet. He also experiences constant nausea regardless of food intake, a symptom he has been dealing with since age 18. The patient denies vomiting but mentions a fear of throwing up due to anxiety when nauseous. The patient reports heartburn occurring daily and occasional difficulty swallowing. He describes an unusual sensation when drinking liquids, feeling it go straight down to the core of his abdomen or dispersing into his lungs. This symptom has also been present since age 18. Jaya discloses heavy alcohol use, consuming approximately 3-4 17-ounce drinks 5 times a day for the past 3 years. He expresses a desire to quit and is currently working with [facility] for [facility] cessation. He reports daily use of nicotine vapes. The patient denies current recreational drug use but mentions a brief addiction to morphine for 5 days during his recent hospital stay when he couldn't drink alcohol. - family hx as below -denies personal hx of CA -tolerated anesthesia in the past without difficulty. [facility] Medical History (Updated 09/19/24 @ 22:44 by Tamara Mayo CNP) Asthma ETOH abuse Laboratory tests ordered as part of a complete physical exam (CPE) Fatigue Throat tightness Dizziness Atopic dermatitis Hypersomnolence Difficulty sleeping Asthma exacerbation Bruising Pain in right hip Anterior knee pain Right shoulder pain Immunization counseling Screen for STD (sexually transmitted disease) COVID-19 Family planning Balanitis Impacted cerumen of both ears Skipped heart beats Alcohol intoxication Adjustment reaction with mixed disturbance of emotions and conduct Depression Acid reflux Anxiety Epidermal inclusion cyst Constipation Surgical History Hx of colonoscopy H/O endoscopy Family History Mother Anxiety Depression Maternal Grandfather Substance abuse Maternal Grandmother Anxiety Depression Father Arthritis Social History (Updated 09/19/24 @ 14:23 by MARK Chambers) Household Members: Family Housing: House Alcohol intake: current Alcohol intake frequency: 3 or more drinks per day Alcohol type: beer, wine and hard liquor Comment: every day Patient Tobacco Use Status: Current everyday Tobacco user Tobacco use type: Cigarette Cigarettes Per Day: 5 Smoked in Last 30 Days: Yes e-Cigarette/Vaping Use: Currently Using Use of substances other than those prescribed or required for medical reasons: No Substance Use Type: Marijuana Advance Directives: No Advance Directives Information Provided: No Do you have a plan to hurt others: No Plan service: No Current occupational status: employed 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 Sexual orientation: Did not discuss Cognitive needs: No Hearing needs: No Vision needs: No Review of Systems Const Reports as per [facility] ENT Reports as per [facility] Card Reports as per HPI Resp Reports as per HPI GI Reports as per [facility] Reports as per HPI Physical Exam Vital Signs: Last Vital Signs Pulse 100 09/19/24 14:07 BP 134/79 09/19/24 14:07 BMI result Body Mass Index 29.3 Const General: healthy appearing, no acute distress and well developed Nutritional Appearance: well nourished Orientation/consciousness: patient oriented x3 HEENT Head: Yes normal to inspection, Yes normocephalic and Yes atraumatic Face and sinus: Yes normal facial exam Eyes General: appearance normal, both eyes and all related structures Neck Neck: Yes normal visual inspection Resp Effort & Inspection: normal respiratory effort, able to speak in complete sentences, no tracheal deviation and symmetric chest movement Auscultation: clear to auscultation bilaterally Cardio Jugular venous distension: no JVD Rate: regular rate Rhythm: regular rhythm Heart sounds: S1 normal heart sound present, S2 normal heart sound present, no gallops and no murmurs GI Inspection: Yes normal to inspection, No distended, Yes obesity and Yes striae Palpation (GI): Soft to palpation, not firm, nontender and No hepatosplenomegaly present Auscultation: normal bowel sounds Skin Other: dark purple scratches noted to right lower inner thigh. Neuro General: patient oriented x3 Gait exam (Neuro): Normal gait present Psych Appearance: grossly normal Mental Status: mental status grossly normal Speech and movement: Normal speech and movement present Affect: Anxious affect present Attitude: cooperative Thought content: Normal thought content present Insight: Fair insight present (Psych) Judgement: Good judgement present (Psych) Assessment & Plan Assessment & Plan (1) Abdominal pain: Comment: Self reports of colonoscopy 2021 by outside provider with findings of lactose intolerance, otherwise normal. No records. Code(s): R10.9 - Unspecified abdominal pain Category: Medical Qualifiers: Abdominal location: generalized Qualified Code(s): R10.84 - Generalized abdominal pain Plan: Chronic left-sided abdominal pain with nausea and alternating constipation/increased frequency following recent colitis diagnosis. - Order upper endoscopy and colonoscopy for further evaluation. - Prescribe MiraLAX for constipation management. - Recommend increased fiber intake and adequate hydration. - Order fasting labs to repeat ER tests and check vitamin levels. - Refer for nutrition consultation per pt' request (2) ETOH abuse: Code(s): F10.10 - Alcohol abuse, uncomplicated Category: Social Hx Plan: Heavy consumption pattern (3-4 drinks, 5 times daily for 3 years), patient motivated to quit. - Continue follow-up with [facility] for alcohol cessation management. - Emphasize importance of reducing and eliminating alcohol consumption. - Encourage adherence to prescribed alcohol withdrawal management plan. (3) Hemorrhoids: Code(s): K64.9 - Unspecified hemorrhoids Category: Medical Qualifiers: Hemorrhoid type: unspecified Qualified Code(s): K64.9 - Unspecified hemorrhoids Plan: Recent painful flare-up, current hydrocortisone 2.5% cream ineffective. - Prescribe stronger hemorrhoid medication. - Recommend [id number]-[id number] cooling gels as alternative. - Educate on lifestyle modifications to prevent constipation. (4) Acid reflux: Code(s): K21.9 - Gastro-esophageal reflux disease without esophagitis Category: Medical Qualifiers: Esophagitis presence: esophagitis presence not specified Qualified Code(s): K21.9 - Gastro-esophageal reflux disease without esophagitis Plan: Daily heartburn and occasional dysphagia, likely exacerbated by alcohol use. - Prescribe esomeprazole lactose safe). - Consider famotidine at bedtime for breakthrough relief pending lactose-free formulation. Encouraged to take esomeprazole as prescribed, taken at least 30-60 minutes before a meal. Education on GERD prevention : - education on the impact of chronic alcohol use, cessation as above -Advised against heavy meals; encouraged small, frequent meals instead of large ones. - Instructed to remain upright for 2?3 hours after eating. - Advised to avoid late-night meals, spicy foods, caffeine, alcohol, known dietary triggers, and tight-fitting clothing. - Emphasis placed on gradual implementation of lifestyle changes to improve adherence and symptom control. (5) Asthma: Code(s): J45.909 - Unspecified asthma, uncomplicated Category: Medical Qualifiers: Asthma severity: unspecified severity Asthma persistence: unspecified Asthma complication type: uncomplicated Qualified Code(s): J45.909 - Unspecified asthma, uncomplicated Plan: History managed by PCP and documentation consultant, worsening due to nicotine vaping. - Advise scheduling follow-up with documentation consultant Dr. Mercado. - Encouraged smoking cessation. Plan Follow up after endoscopy or sooner as needed Time: I spent a total of 50 minutes on the date of encounter which includes: Preparing to see the patient (reviewed previous documentation, test results and medical history) Performing a medically appropriate exam and/or evaluation Ordering medications, tests, and procedures Documenting clinical information in the health record Orders: Orders Vitamin E Today F10.10 - Alcohol abuse, uncomplicated Complete Blood Count Auto Diff Today R10.9 - Unspecified abdominal pain Comprehensive [place]. Panel Fast Today R10.9 - Unspecified abdominal pain IRON PROFILE Today R10.9 - Unspecified abdominal pain Vitamin B12 and Folate Today F10.10 - Alcohol abuse, uncomplicated Vitamin D 1,25 dihydroxy Today F10.10 - Alcohol abuse, uncomplicated Vitamin A Today F10.10 - Alcohol abuse, uncomplicated Vitamin K1 Today F10.10 - Alcohol abuse, uncomplicated Referrals Nutrition/Dietitian Referral F10.10 - Alcohol abuse, uncomplicated, K21.9 - Gastro-esophageal reflux disease without esophagitis, K59.00 - Constipation, unspecified Medications: New esomeprazole magnesium 20 mg PO DAILY 90 caps 0RF polyethylene glycol 3350 (Miralax) per colonoscopy prep instructions 238 grams PO ONCE 238 grams 0RF sennosides (senna) Take 2 capsules nightly, starting 3 days prior to colonoscopy 8 caps 0RF 3 days esomeprazole magnesium Take 1 tablet daily. Best taken 30 minutes before meal 20 mg PO DAILY 90 caps 1RF polyethylene glycol 3350 (Miralax) Take 17G (one cap full) daily with 8oz of water 17 grams PO DAILY 30 days 510 grams 2RF constipation lidocaine HCl-hydrocortison ac 3-1 % (7 gram) Apply as needed up to two times per day 1 ea SC BID 1 ea 1RF Coding Level of Care Code New Pt New Pt Level 4 (98175) Patient Type New Diagnoses Generalized abdominal pain R10.84 Abdominal location: generalized ETOH abuse F10.10 Hemorrhoids, unspecified hemorrhoid type K64.9 Hemorrhoid type: unspecified Gastroesophageal reflux disease, unspecified whether esophagitis present K21.9 Esophagitis presence: esophagitis presence not specified Uncomplicated asthma, unspecified asthma severity, unspecified whether persistent J45.909 Asthma severity: unspecified severity Asthma persistence: unspecified Asthma complication type: uncomplicated
[2024-09-19 14:07] VITALS: BP 134/79; PULSE 100; BMI 29.3
== END 2024-09-19 15:05 | disposition home or self-care (01) ==
LOC: HO.HGI 13:59
PROVIDERS: PCP Family Medicine; Visit Provider Nurse Practitioner Family
DX: R10.84 Generalized abdominal pain (principal); F10.10 Alcohol abuse, uncomplicated; K64.9 Unspecified hemorrhoids; K21.9 Gastro-esophageal reflux disease without esophagitis; J45.909 Unspecified asthma, uncomplicated
CPT/HCPCS: 99204

== ENCOUNTER 2024-09-19 16:34 | Emergency (ER) | payer OTHER, SELFPAY ==
--- OUTSIDE RECORDS SUMMARY | 2024-09-19 16:48 | XMS_ITS ---
Author Name [facility] Organization Unknown History of Medication Use Medication Directions Dispensed Refills Start Date End Date Stat us dicyclomine (BENTYL) 10 MG capsule Take 1 capsule (10 mg) by mouth 3 (three) times daily before meals 08/12/2023 09/12/2023 active linaCLOtide (LINZESS) 72 mcg Capsule Take 72 mcg by mouth daily 08/12/2023 09/12/2023 active nicotine (NICODERM CQ) 21 mg/[address] 1 PATCH TO SKIN DAILY 07/22/2023 active erythromycin (ROMYCIN) ophthalmic ointment APPLY 1 A SMALL AMOUNT INTO BOTH EYES FOUR TIMES A DAY APPLY TO INCISION SITES FOR 2 WEEKS THEN STOP 06/27/2023 active venlafaxine (EFFEXOR) 75 MG tablet Take 75 mg by mouth 2 (two) times daily 06/16/2023 active MEtopROLOL (TOPROL-XL) 25 MG 24 hr tablet 12.5 mg 06/07/2023 active azithromycin (ZITHROMAX) 250 MG tablet TAKE 2 TABLETS BY MOUTH TODAY, THEN TAKE 1 TABLET DAILY FOR 4 DAYS DIRECTED 04/22/2023 active predniSONE (DELTASONE) 20 MG tablet TAKE 2 TABLETS ORALLY DAILY FOR 5 DAYS 04/22/2023 active ARIPiprazole (ABILIFY) 2 MG tablet TAKE 1/2 TABLET ORALLY BEDTIME FOR 30 DAYS 03/30/2023 active nystatin-triamcinolo ne (MYCOLOG) ointment APPLY TO AFFECTED SKIN FOLDS TWICE DAILY FOR ONE WEEK BREAK FOR ONE WEEK AND REPEAT NEEDED. 12/02/2021 active triamcinolone (KENALOG) 0.025 % cream APPLY TOPICALLY TWICE A DAY APPLY SPARINGLY TO AFFECTED SKIN ON FACE. AVOID EYE AREA. 11/26/2021 active PULMICORT FLEXHALER 180 mcg/actuation inhaler INHALE 2 PUFFS BY MOUTH TWICE A DAY DIRECTED 10/30/2021 active clotrimazole-betamet hasone (LOTRISONE) cream USE 1 APPL TOPICALLY 2 TIMES A DAY FOR 2 WEEKS 10/06/2021 active omeprazole (PRILOSEC) 40 MG capsule TAKE 1 CAPSULE BY MOUTH EVERY DAY X14 DAYS 10/06/2021 active loratadine (CLARITIN) 10 mg tablet TAKE 1 TABLET (10 MG) BY MOUTH DAILY. 10/04/2021 09/09/2023 active 0.9% sodium chloride infusion at 40 mL/hr, Intravenous, Continuous, Starting on Tue07/29/21 at 1200Begin IV fluid prior to the start of the procedurePre-op 07/29/2021 active lidocaine (LMX) 4 % cream Topical (Top), Every 1 hour PRN, Venipuncture, Starting on Tue07/29/21 at 1158, For 2 doses, Pre-opApply to: Venipuncture Site 07/29/2021 active hyoscyamine (LEVSIN/SL) 0.125 mg SL tablet TAKE 1 TABLET (0.125 MG) BY MOUTH 3 (THREE) TIMES DAILY NEEDED FOR CRAMPING 07/20/2021 10/10/2021 active famotidine (PEPCID) 20 MG tablet Take by mouth 06/30/2021 07/31/2021 active polyethylene glycol (MIRALAX) 17 gram/dose powder Mix 16 capfuls in 64 oz gatorade drink over 4 to 6 hours followed by 1 capful twice daily 06/30/2021 07/31/2021 active polyethylene glycol (MIRALAX) 17 gram/dose powder Mix 16 capfuls in 64 oz gatorade drink over 4 to 6 hours followed by 1 capful twice daily 06/30/2021 active senna (SENOKOT) 8.6 mg tablet Take 2 tablets by mouth nightly 06/30/2021 active senna (SENOKOT) 8.6 mg tablet Take 2 tablets by mouth nightly 06/30/2021 active aluminum hydroxide-magnesium hydroxide-simethicon e (MAALOX PLUS) 200-200-20 mg/5 mL suspension Take by mouth 06/26/2021 07/29/2021 active dicyclomine (BENTYL) 10 MG capsule TAKE 1 CAPSULE (10 MG) BY MOUTH 3 (THREE) TIMES DAILY BEFORE MEALS 04/06/2021 07/29/2021 active ALBUTEROL INHL Inhale 2 puffs into the lungs 4 (four) times daily as needed active hydrOXYzine (ATARAX) 50 MG tablet Take 50 mg by mouth 3 (three) times daily as needed for Itching active Allergies Allergen Reaction Severity Comment Documented Date Source Statu s SEASONAL 08/12/2023 [facility] [place] ASPIRIN Other reaction(s): Unknown body region 07/07/2021 [facility] [place] HOUSE DUST 06/30/2021 [facility] [place] AVOCADO Other reaction(s): Unknown body region 06/10/2020 [facility] [place] IBUPROFEN Pt reports GI upset and vomiting each time he takes this medication 04/29/2020 [facility] [place] MITE-DERMATOPHAGOID ES FARINAE, STANDARDIZED 04/10/2020 [facility] [place] BANANA [facility] Problems Problem Status Onset Date Problem Type Date of Resolution Source Generalized abdominal pain active 2021-06-30 [facility] Constipation, unspecified constipation type active EncounterDiagnosisAct C [facility] Encounters Encounter Type Encounter Reason Primary Diagnosis Location Date Ambulatory Generalized abdominal pain Generalized abdominal pain [facility] [place] 08/12/2023 [facility] 02/09/2022 Ambulatory [facility] 11/11/2021 Ambulatory [facility] 10/31/2021 Ambulatory [facility] 10/27/2021 Ambulatory [facility] 09/29/2021 Ambulatory [facility] 07/30/2021 Ambulatory [facility] 07/29/2021 Ambulatory [facility] 07/20/2021 Ambulatory [facility] 07/17/2021 Ambulatory [facility] 07/13/2021 Care Team Organization Name Specialty Phone Email Start Date End Da te [facility] DAWNA [facility] 08/12/2023 [facility] [place] JOAN TOVAR Primary Care 08/12/2023 [facility] Joan Tovar [facility] 02/10/2022
--- NOTE | 2024-09-19 16:55 | ED.PSYCH ---
HPI - Psych General Chief Complaint: Psychiatric Symptoms Stated Complaint: crisis eval Time Seen by Provider: 09/19/24 16:55 Source: patient, RN notes reviewed and old records reviewed Mode of arrival: ambulatory Limitations: no limitations History of Present Illness ED Provider: Elbert GUSTAFSON Narrative: Patient is a 24-year-old male with history of alcohol use disorder, alcoholic gastritis, IBS, fibromyalgia, depression anxiety, eczema presenting to the emergency department with complaint of increased anxiety, passive suicidal ideation without a plan. Reports he has been drinking daily, last drink around 330 this afternoon, states had a 115 mL bottle. Denies history of withdrawal symptoms or withdrawal seizures. Denies drug use. States he has not been taking his prescribed medications recently. Denies any auditory or visual hallucinations. Complains of generalized upper abdominal pain. Denies nausea, vomiting, diarrhea, fevers. MD complaint: suicidal ideation, feels depressed, anxiety and alcohol abuse Related Data Home Medications ?Medication ?Instructions ?Recorded ?Confirmed acamprosate 333 mg tablet,delayed 333 mg PO BID 09/19/24 09/19/24 release albuterol sulfate 90 mcg/actuation 2 puff inhalation Q4-6H PRN 09/19/24 09/19/24 aerosol inhaler (Ventolin HFA) Shortness Of Breath loratadine 10 mg tablet (Allergy 10 mg PO DAILY 09/19/24 09/19/24 Relief (loratadine)) triamcinolone acetonide 0.1 % 1 appl topical DAILY 09/19/24 09/19/24 topical cream Previous Rx's ?Medication ?Instructions ?Recorded disulfiram 250 mg tablet 250 mg PO DAILY 30 days #30 tabs 09/12/24 gabapentin 100 mg capsule 100 mg PO TID 30 days #90 caps 09/12/24 esomeprazole magnesium 20 mg 20 mg PO DAILY #90 caps 09/19/24 capsule,delayed release lidocaine 3 %-hydrocortisone 1 % 1 ea NV BID #1 ea 09/19/24 (7 gram) rectal kit polyethylene glycol 3350 17 238 g PO ONCE #238 grams 09/19/24 gram/dose oral powder (Miralax) sennosides 8.6 mg capsule (senna) 17.2 mg (2 x 8.6 mg) PO .COMPLEX 3 09/19/24 days #8 caps Allergies Allergy/AdvReac Type Severity Reaction Status Date / Time ibuprofen (IBUPROFEN) Allergy Intermediate ABD PAIN Verified 09/19/24 17:12 AND REFLUX aspirin (ASA) Allergy Swelling Verified 09/19/24 17:12 avocado Allergy Swelling Verified 09/19/24 17:12 banana Allergy Anaphylaxis Verified 09/19/24 17:12 gluten Allergy Abdominal Verified 09/19/24 17:12 Pain house dust Allergy Unknown Verified 09/19/24 17:12 lactose Allergy Abdominal Verified 09/19/24 17:12 Pain venlafaxine AdvReac Mild vomiting, Verified 09/19/24 17:12 disorintation seasonal Allergy Unknown unknown Uncoded 09/19/24 17:12 Review of Systems Review of Systems: As per HPI Yes all other systems are reviewed and are negative Constitutional: Constitutional: Reports as per HPI PMFSH Past Medical History Medical History (Updated 09/19/24 @ 22:44 by Tamara Mayo CNP) Asthma ETOH abuse Laboratory tests ordered as part of a complete physical exam (CPE) Fatigue Throat tightness Dizziness Atopic dermatitis Hypersomnolence Difficulty sleeping Asthma exacerbation Bruising Pain in right hip Anterior knee pain Right shoulder pain Immunization counseling Screen for STD (sexually transmitted disease) COVID-19 Family planning Balanitis Impacted cerumen of both ears Skipped heart beats Alcohol intoxication Adjustment reaction with mixed disturbance of emotions and conduct Depression Acid reflux Anxiety Epidermal inclusion cyst Constipation Surgical History Hx of colonoscopy H/O endoscopy Family History Family History Mother Anxiety Depression Maternal Grandfather Substance abuse Maternal Grandmother Anxiety Depression Father Arthritis Social History Social History (Updated 09/19/24 @ 14:23 by MARK Chambers) Household Members: Family Housing: House Alcohol intake: current Alcohol intake frequency: 3 or more drinks per day Alcohol type: beer, wine and hard liquor Comment: every day Patient Tobacco Use Status: Current everyday Tobacco user Tobacco use type: Cigarette Cigarettes Per Day: 5 Smoked in Last 30 Days: Yes e-Cigarette/Vaping Use: Currently Using Use of substances other than those prescribed or required for medical reasons: No Substance Use Type: Marijuana Advance Directives: No Advance Directives Information Provided: No Do you have a plan to hurt others: No Plan service: No Current occupational status: employed 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 Blood pressure normal. Heart rate mildly tachycardic. Respiratory rate normal. Temperature normal. Oxygen saturation normal. Const: General: cooperative, healthy appearing and no acute distress Orientation/consciousness: oriented to person, oriented to place, oriented to time and patient oriented x3 Limitations: no limitations HEENT: Head: Yes normocephalic and Yes atraumatic Ears: external ears normal General nose exam: Normal external nose present Face and sinus: Yes face symmetric Mouth: oropharynx normal and moist mucous membranes Throat: Yes uvula midline Eyes: Pupils: Equal, round and reactive pupils present Neck: Neck: Yes normal visual inspection and Yes supple Resp: Effort & Inspection: normal respiratory effort and able to speak in complete sentences Auscultation: clear to auscultation bilaterally Cardio: Rate: regular rate Rhythm: regular rhythm Heart sounds: S1 normal heart sound present and S2 normal heart sound present GI: Palpation (GI): Soft to palpation, Tenderness to palpation present (GI) in the epigastrum, no guarding and No Rebound tenderness present Auscultation: normoactive bowel sounds : General: Yes no CVA tenderness Back/Spine/Pelvis: Back: no CVA tenderness Skin: General skin exam: elasticity normal and turgor normal Neuro: General: oriented to person, oriented to place, oriented to time, patient oriented x3, moves all extremities, no focal motor deficits and CN's II-XI intact bilaterally Cranial nerves: Yes Equal, round and reactive pupils present Cognition (Neuro): normal cognition Extrem: General: Yes full ROM, Yes no pedal edema and Yes no calf tenderness Psych: Mental Status: mental status grossly normal Affect: normal affect Thought process: Normal thought process present Course Reevaluation(s) Reevaluation #1: Patient re-evaluated by Francoise from care team this morning who feels patient is stable for discharge home. He is not interested in assistance with detox from alcohol. She will be contacting his therapist in the community to set up an appointment. Patient is comfortable with this plan. Return precautions discussed. Patient verbalized understanding of and agreement with plan. Observation care revealed that patient does not meet medical necessity for hospitalization. Final disposition discussed with patient. The patient completed observation care at 11:25 09/20/24. Time: 11:23 Medications Administered Generic Name Dose Route Start Last Admin Trade Name Freq PRN Reason Stop Dose Admin Albuterol Sulfate 2 puff 09/19/24 17:43 09/20/24 09:07 Albuterol Sulfate 90 Mcg 8 Gm Inhaler INHALE 2 puff Q4H PRN Administration Shortness of Breath Loratadine 10 mg 09/20/24 09:00 09/20/24 09:07 Loratadine 10 Mg Tablet PO 10 mg DAILY SHERLY Administration Lorazepam 2 mg 09/19/24 19:34 09/19/24 21:36 Lorazepam 1 Mg Tablet PO 2 mg RQ4H WHILE AWAKE PRN Administration Alcohol Withdrawal Triamcinolone Acetonide 1 appl 09/20/24 09:00 09/20/24 10:48 Triamcinolone Acet 0.1 % Cream 15 Gm Tube TOPICAL 1 appl DAILY SHERLY Administration Protocol Discontinued Medications Generic Name Dose Route Start Last Admin Trade Name Freq PRN Reason Stop Dose Admin Al Hydroxide/Mg Hydroxide 15 ml 09/19/24 17:41 09/19/24 18:13 Magnesium Hydrox/Alum Hydrox 30 Ml Oral.Susp PO 09/19/24 17:42 15 ml ONCE ONE Administration Lidocaine HCl 15 ml 09/19/24 17:41 09/19/24 18:13 Lidocaine Hcl Viscous 2 % 15 Ml Solution MUCOUS MEM 09/19/24 17:42 15 ml ONCE ONE Administration Ondansetron HCl 4 mg 09/19/24 17:41 09/19/24 18:13 Ondansetron Odt 4 Mg Tab.Rapdis TRANSLINGU 09/19/24 17:42 4 mg ONCE ONE Administration Medical Decision Making Medical Decision Making MDM Narrative: Patient is a 24-year-old male with history of alcohol use disorder, alcoholic gastritis, IBS, fibromyalgia, depression anxiety, eczema presenting to the emergency department with complaint of increased anxiety, passive suicidal ideation without a plan. On exam patient is awake, A+Ox3, VS WNL, afebrile, normal neurological exam without focal deficits, physical exam findings as above. Given reported symptoms and physical exam findings, initial differential includes but is not limited to alcohol use disorder, depression, anxiety, suicidal ideation. Plan for med clearance then care team evaluation. Will treat gastritis with Zofran and GI cocktail. CIWA scale ordered. Labs unremarkable. Ethanol level of 12. UA pending but will place patient on physician observation at this time for care team evaluation. Differential Diagnosis Differential Diagnoses: The differential diagnosis associated with the presentation includes as per [facility] Admission/Observation Consideration of admission/observation: Escalation of care including admission/observation considered Patient would have been admitted to the hospital had their work up had any findings where hospital admission was appropriate and their clinical presentation warranted hospital admission. Consult Healthcare Provider Management of the patient was discussed with: Behavioral Health Provider Lab Data [facility] Lab Attestation statement: I reviewed the patient's lab results. as per [facility] 09/19/24 17:32 09/19/24 17:32 Labs: Lab Results 09/19/24 09/19/24 Range/Units 17:32 19:39 WBC 9.1 (4.8-10.8) X10*3/uL RBC 4.99 (4.60-5.80) X10*6/uL Hgb 13.8 L (14.0-18.0) g/dl Hct 40.0 L (42.0-52.0) % MCV 80.2 (80.0-98.0) fL MCH 27.7 (27.0-33.0) pg MCHC 34.5 (31.0-36.0) g/dl RDW 14.0 (11.0-16.0) % Plt Count 311 (160-400) X10*3/uL MPV 9.5 (9.4-12.4) fL Immature Gran % (Auto) 0.3 (0.0-0.4) % Neut % (Auto) 72.6 (45-73) % Lymph % (Auto) 21.1 (20-40) % Colbert % (Auto) 4.4 (2-11) % Eos % (Auto) 0.9 (0-4) % Baso % (Auto) 0.7 (0-2) % Lymph # (Auto) 1.9 (1.2-4.9) X10*3/uL Colbert # (Auto) 0.4 (0.1-1.2) X10*3/uL Eos # (Auto) 0.1 (0.0-0.4) X10*3/uL Baso # (Auto) 0.1 (0.0-0.2) X10*3/uL Abs Immat Gran (auto) 0.03 (0.00-0.03) X10*3/uL Absolute Neuts (auto) 6.6 (2.0-8.3) x10*3/uL Absolute Nucleated RBC 0.000 (0.0-0.012) X10*3/uL Nucleated RBC % (auto) 0.0 (0.0-0.2) /100WBC Sodium 139 (135-145) mmol/L Potassium 3.3 (3.3-5.1) mmol/L Chloride 102 (96-108) mmol/L Carbon Dioxide 26 (22-29) mmol/L Anion Gap 14 (12-20) BUN 13 (9-16) mg/dL Creatinine 0.89 (0.5-1.4) mg/dL Estim Creat Clear Calc 117.4 Estimated GFR > 60 Random Glucose 138 H (60-115) mg/dL Calcium 9.4 (8.4-10.2) mg/dL Magnesium 1.9 (1.6-2.6) mg/dL Total Bilirubin 0.4 (0.0-1.0) mg/dL AST 29 (5-37) U/L ALT 36 (0-40) U/L Alkaline Phosphatase 65 (39-117) U/L Total Protein 7.2 (6.5-8.0) g/dL Albumin 4.5 (3.5-5.0) g/dL Urine Color Yellow Urine Appearance Clear Urine pH 7.0 (5.0-9.0) Ur Specific Lyons 1.020 (1.005-1.025) Urine Protein Negative (Neg-Trace) mg/dL Urine Glucose (UA) Negative (Negative) mg/dL Urine Ketones Negative (Negative) mg/dL Urine Blood Negative (Negative) Urine Nitrite Negative (Negative) Ur Leukocyte Esterase Negative (Negative) Urine Opiates Screen Not Detected (Not Detect) Ur Buprenorphine Scrn Not Detected (Not Detect) ng/mL Ur Oxycodone Screen Not Detected (Not Detect) ng/mL Urine Methadone Screen Not Detected (Not Detect) ng/mL Urine Fentanyl Screen Not Detected (Not Detect) Ur Barbiturates Screen Not Detected (Not Detect) Ur Phencyclidine Scrn Not Detected (Not Detect) Ur Amphetamines Screen Not Detected (Not Detect) U Benzodiazepines Scrn Not Detected (Not Detect) Urine Cocaine Screen Not Detected (Not Detect) U Marijuana (THC) Screen Not Detected (Not Detect) Ethyl Alcohol 12 mg/dL External Record Review External record reviewed: Inpatient record, Office record and Outpatient record Discharge Plan Discharge Clinical Impression: Alcohol use disorder, Depression Patient Disposition: Home, Self-Care Instructions: Depression (ED), Alcohol Use Disorder (ED) Additional Instructions: Alcohol use disorder You were seen in the Emergency Department today for treatment of alcohol use disorder.? You may have been given medications to help with your withdrawal symptoms.? Please do not drink alcohol with them. This is very dangerous and can cause respiratory depression or other adverse reactions depending on the medication. If you would like to cut down or stop your alcohol use please consider calling our outpatient Addiction Treatment office:? [facility] (M-F [id number]) [address] [place] [address] ? You have also been given a list of treatment providers in the area that can assist as well.? If you experience seizures, vomiting blood, black stools, falls, severe headache, chest pain, fevers, trouble breathing, hallucinations or any other concerns you need to call 911 or seek immediate care. Please stay hydrated. You were seen in our Emergency Department today for treatment of a behavioral health issue. It is important after your visit that you follow up with either your behavioral health provider or a primary care doctor within 7 days.? If you have trouble finding a therapist you can reach out to [address] [phone] The National Suicide and Crisis Lifeline can be reached 7 days a week 24 hours a day.? Call 988 to speak with someone.? Return for any worsening symptoms or concerns such as thoughts of self harm or harm to others. Please call 911 if you feel your mental health is worsening.? You were seen in our Emergency Department today for treatment of a behavioral health issue. It is important after your visit that you follow up with either your behavioral health provider or a primary care doctor within 7 days.? If you have trouble finding a therapist you can reach out to [address] [phone] Prescriptions: No Action triamcinolone acetonide 0.1 % cream 1 appl topical DAILY albuterol sulfate [Ventolin HFA] 90 mcg/actuation HFA aerosol inhaler 2 puff inhalation Q4-6H PRN (Reason: Shortness Of Breath) loratadine [Allergy Relief (loratadine)] 10 mg tablet 10 mg PO DAILY acamprosate 333 mg tablet,delayed release (DR/EC) 333 mg PO BID Rx Instructions: administer with mid-day and evening meals disulfiram 250 mg tablet 250 mg PO DAILY 30 Days Qty: 30 5RF gabapentin 100 mg capsule 100 mg PO TID 30 Days Qty: 90 1RF polyethylene glycol 3350 [Miralax] 17 gram/dose powder 238 g PO ONCE Qty: 238 0RF Rx Instructions: per colonoscopy prep instructions senna 8.6 mg capsule 17.2 mg PO .COMPLEX 3 Days Qty: 8 0RF Rx Instructions: Take 2 capsules nightly, starting 3 days prior to colonoscopy esomeprazole magnesium 20 mg capsule,delayed release(DR/EC) 20 mg PO DAILY Qty: 90 1RF Rx Instructions: Take 1 tablet daily. Best taken 30 minutes before meal lidocaine HCl-hydrocortison ac 3-1 % (7 gram) kit 1 ea NV BID Qty: 1 1RF Rx Instructions: Apply as needed up to two times per day Interventions: [place]-Suicide Risk Severity Scale Last Done: 09/19/24 17:13 Print Language: Mozambican
[2024-09-19 17:07] VITALS: BP 144/92; PULSE 106; RESP 16; TEMP 37.1; O2SAT 98; BMI 26.6
[2024-09-19 17:15] VITALS: RESP 14
--- NOTE | 2024-09-19 17:20 | PC.NURSE ---
RE: Med rec This RN completed med rec with patient Pt reports he picked up his Gabapentin and Disulfiram yesterday and has not taken any doses yet He reports he has not taken his other meds since early August/late July (unable to give exact date)
--- NOTE | 2024-09-19 17:22 | PC.NURSE ---
Pt is currently resting comfortably in his bed, respirations are even and unlabored, no apparent distress is noted. Patient aware of plan of care for medical clearance and CARE team kaveh
[2024-09-19 17:36] LABS: MANUAL DIFF FLAG NO
[2024-09-19 17:41] LABS: Hematocrit 40.0 % (42.0-52.0); Hemoglobin 13.8 g/dl (14.0-18.0); Imm Gran Abs Auto 0.03 X10*3/uL (0.00-0.03); Imm Gran Pct Auto 0.3 % (0.0-0.4); Lymphocytes Absolute Auto 1.9 X10*3/uL (1.2-4.9); Mean Corpuscular HGB Conc 34.5 g/dl (31.0-36.0); Mean Corpuscular Hemoglobin 27.7 pg (27.0-33.0); Mean Corpuscular Volume 80.2 fL (80.0-98.0); NRBC Abs Auto 0.000 X10*3/uL (0.0-0.012); NRBC Pct Auto 0.0 /100WBC (0.0-0.2); Platelet Count 311 X10*3/uL (160-400); Red Blood Count 4.99 X10*6/uL (4.60-5.80); White Blood Count 9.1 X10*3/uL (4.8-10.8)
[2024-09-19 17:52] LABS: Alanine Aminotransferase 36 U/L (0-40); Albumin Level 4.5 g/dL (3.5-5.0); Alkaline Phosphatase 65 U/L (39-117); Anion Gap 14 (12-20); Aspartate Amino Transferase 29 U/L (5-37); Blood Urea Nitrogen 13 mg/dL (9-16); Calcium 9.4 mg/dL (8.4-10.2); Carbon Dioxide 26 mmol/L (22-29); Chloride 102 mmol/L (96-108); Creatinine Clr Calc Pharmacy 117.4; Estimated Glomerular Filt Rate > 60; Potassium 3.3 mmol/L (3.3-5.1); Sodium 139 mmol/L (135-145); Total Protein 7.2 g/dL (6.5-8.0)
[2024-09-19 18:10] LABS: Magnesium 1.9 mg/dL (1.6-2.6)
[2024-09-19] MEDS: Magnesium Hydrox/Alum Hydrox 30 ML ORAL.SUSP 15 ML PO (18:13)
[2024-09-19] MEDS: Lidocaine HCl Viscous 2 % 15 ML SOLUTION MUCOUS MEM (18:13)
[2024-09-19 19:48] LABS: Appearance Urine Clear; Glucose Urine UA Negative (Negative); PH 7.0 (5.0-9.0); Specific Gravity - Urine 1.020 (1.005-1.025)
[2024-09-19 19:57] LABS: Cannabinoid Screen Urine Not Detected (Not Detect)
[2024-09-19] MEDS: Albuterol Sulfate 90 MCG 8 GM INHALER 2 PUFF INHALE (21:36)
[2024-09-20 06:39] VITALS: BP 118/56; PULSE 70; RESP 16; TEMP 36.7; O2SAT 97
[2024-09-20] MEDS: Albuterol Sulfate 90 MCG 8 GM INHALER 2 PUFF INHALE (09:07)
--- NOTE | 2024-09-20 09:15 | PC.NURSE ---
patient a&o, ambulating on unit with steady gait, pt medicated per order, pt requesting to speak with care team- he was notified that he will be seen at some point today they are doing their rounds, plan of care ongoing
--- NOTE | 2024-09-20 10:00 | MHC.CARE ---
Pt does not meet the criteria for a higher level of care and will be discharged to follow up with current providers. ED provider in agreement.
[2024-09-20] MEDS: Triamcinolone Acet 0.1 % Cream 15 GM TUBE 1 APPL TOPICAL (10:48)
[2024-09-20 11:54] VITALS: BP 122/66; PULSE 76; RESP 16; TEMP 36.7; O2SAT 97
== END 2024-09-20 11:59 | disposition home or self-care (01) ==
PROVIDERS: Registered Nurse Emergency; Emergency Provider Internal Medicine; PCP Family Medicine
DX: F10.10 Alcohol abuse, uncomplicated (principal); Y90.0 Blood alcohol level of less than 20 mg/100 ml; F32.A Depression, unspecified; R45.851 Suicidal ideations; F41.9 Anxiety disorder, unspecified; J45.909 Unspecified asthma, uncomplicated; F17.210 Nicotine dependence, cigarettes, uncomplicated; Z79.899 Other long term (current) drug therapy
CPT/HCPCS: 36415; 80053; 80307; 81003; 83735; 85025; 99285; S9485

== ENCOUNTER 2024-09-28 10:32 | Outpatient (REF) | payer OTHER, SELFPAY ==
[2024-09-28 10:50] LABS: MANUAL DIFF FLAG NO
[2024-09-28 11:40] LABS: Alanine Aminotransferase 36 U/L (0-40); Albumin Level 4.9 g/dL (3.5-5.0); Alkaline Phosphatase 71 U/L (39-117); Anion Gap 10 (12-20); Aspartate Amino Transferase 24 U/L (5-37); Blood Urea Nitrogen 13 mg/dL (9-16); Calcium 9.6 mg/dL (8.4-10.2); Carbon Dioxide 30 mmol/L (22-29); Chloride 104 mmol/L (96-108); Estimated Glomerular Filt Rate > 60; Iron 87 mcg/dL (45-160); Percent Iron Saturation 29 % (15-50); Potassium 4.2 mmol/L (3.3-5.1); Sodium 140 mmol/L (135-145); Total Iron Binding Capacity 299 mcg/dL (228-428); Total Protein 7.6 g/dL (6.5-8.0); Unsaturated Iron Binding 212 ug/dL
[2024-09-28 11:52] LABS: Hematocrit 42.1 % (42.0-52.0); Hemoglobin 14.5 g/dl (14.0-18.0); Imm Gran Abs Auto 0.05 X10*3/uL (0.00-0.03); Imm Gran Pct Auto 0.7 % (0.0-0.4); Lymphocytes Absolute Auto 1.7 X10*3/uL (1.2-4.9); Mean Corpuscular HGB Conc 34.4 g/dl (31.0-36.0); Mean Corpuscular Hemoglobin 27.7 pg (27.0-33.0); Mean Corpuscular Volume 80.5 fL (80.0-98.0); NRBC Abs Auto 0.000 X10*3/uL (0.0-0.012); NRBC Pct Auto 0.0 /100WBC (0.0-0.2); Platelet Count 329 X10*3/uL (160-400); Red Blood Count 5.23 X10*6/uL (4.60-5.80); White Blood Count 7.5 X10*3/uL (4.8-10.8)
[2024-09-28 12:12] LABS: Folate 7.8 ng/mL (> or = 4.0); Vitamin B12 550 pg/mL (200-900)
[2024-10-01 23:24] LABS: VITAMIN D (1,25 OH) D3 32 pg/mL; Vit D (1,25-Dihydroxy) Total 32 pg/mL (18-72); Vitamin D (1,25 OH) D2 <8 pg/mL
== END 2024-09-28 10:33 | disposition home or self-care (01) ==
LOC: HO.LAB 10:32
PROVIDERS: PCP Family Medicine; Visit Provider Nurse Practitioner Family
DX: F10.10 Alcohol abuse, uncomplicated (principal); R10.9 Unspecified abdominal pain
CPT/HCPCS: 36415; 80053; 82607; 82652; 82746; 83540; 84446; 84590; 84597; 85025

== ENCOUNTER 2024-10-11 11:05 | Outpatient (AMB) | payer OTHER, SELFPAY ==
[2024-10-11 11:09] VITALS: BP 122/70; PULSE 100; O2SAT 97; BMI 29.5
--- NOTE | 2024-10-11 11:09 | MHC.OFFVIS ---
Vital Signs 10/11/24 11:09 Height 5 ft 6 in Weight 183 lb BMI 29.5 BP 122/70 Pulse 100 Pulse Oximetry (%) 97 Intake Visit Reasons: MAT Allergies ibuprofen (IBUPROFEN) Allergy (Intermediate, Verified 10/11/24 11:10) ABD PAIN AND REFLUX aspirin (ASA) Allergy (Verified 10/11/24 11:10) Swelling avocado Allergy (Verified 10/11/24 11:10) Swelling banana Allergy (Verified 10/11/24 11:10) Anaphylaxis gluten Allergy (Verified 10/11/24 11:10) Abdominal Pain house dust Allergy (Verified 10/11/24 11:10) Unknown lactose Allergy (Verified 10/11/24 11:10) Abdominal Pain venlafaxine Adverse Reaction (Mild, Verified 10/11/24 11:10) vomiting, disorintation seasonal Allergy (Unknown, Uncoded 10/11/24 11:10) unknown Medication List - Last Reconciled 10/11/24 by ALANA Abel acamprosate 333 mg PO BID albuterol sulfate 90 mcg/actuation (Ventolin HFA) 2 puffs inhalation Q4-6H PRN dicyclomine 10 mg PO TID 90 days esomeprazole magnesium 20 mg PO DAILY gabapentin 100 mg PO TID 30 days lidocaine HCl-hydrocortison ac 3-1 % (7 gram) 1 ea AR BID loratadine (Allergy Relief (loratadine)) 10 mg PO DAILY polyethylene glycol 3350 (Miralax) 238 grams PO ONCE sennosides (senna) Take 2 capsules nightly, starting 3 days prior to colonoscopy 3 days triamcinolone acetonide 0.1% 1 appl topical DAILY HPI Comments Details: The patient is a 24-year-old male presenting with concerns regarding alcohol consumption and the management of current medication due to ongoing alcohol use. He experiences significant abdominal pain and is scheduled for a colonoscopy next week to rule out potential malignancy. The patient consumes approximately 2 to 4 wine coolers daily, occasionally replacing this with whiskey consumption. During a recent hospital visit, he sustained a six-day period of abstinence, prompted by antibiotics prescribed to address health complications potentially exacerbated by alcohol. The patient attempts to abstain from alcohol have been largely unsuccessful despite motivation. Additionally, the patient smokes disposable vapes, a concern given a longstanding history of asthma, though current attempts to reduce smoking have proven ineffective with past trials of nicotine patches and gum causing adverse effects. He resides with family members but conceals the breadth of his alcohol use. [facility] Medical History (Updated 09/21/24 @ 00:02 by Willy Lopez) Asthma ETOH abuse Laboratory tests ordered as part of a complete physical exam (CPE) Fatigue Throat tightness Dizziness Atopic dermatitis Hypersomnolence Difficulty sleeping Asthma exacerbation Bruising Pain in right hip Anterior knee pain Right shoulder pain Immunization counseling Screen for STD (sexually transmitted disease) COVID-19 Family planning Balanitis Impacted cerumen of both ears Skipped heart beats Alcohol intoxication Adjustment reaction with mixed disturbance of emotions and conduct Depression Acid reflux Anxiety Epidermal inclusion cyst Constipation Surgical History Hx of colonoscopy H/O endoscopy Family History Mother Anxiety Depression Maternal Grandfather Substance abuse Maternal Grandmother Anxiety Depression Father Arthritis Social History Household Members: Family Housing: House Alcohol intake: current Alcohol intake frequency: 3 or more drinks per day Alcohol type: beer, wine and hard liquor Comment: every day Patient Tobacco Use Status: Current everyday Tobacco user Tobacco use type: Cigarette Cigarettes Per Day: 5 e-Cigarette/Vaping Use: Currently Using Substance Use Type: Marijuana service: No Current occupational status: employed 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 Sexual orientation: Did not discuss Cognitive needs: No Hearing needs: No Vision needs: No Review of Systems Const All systems reviewed & are unremarkable except as noted in HPI and below Physical Exam Vital Signs: Last Vital Signs Pulse 100 10/11/24 11:09 BP 122/70 10/11/24 11:09 Pulse Ox 97 10/11/24 11:09 BMI result Body Mass Index 29.5 Psych Appearance: well kempt Mental Status: mental status grossly normal Speech and movement: Normal speech and movement present Affect: Labile affect present Attitude: cooperative Thought process: Normal thought process present Thought content: Normal thought content present Insight: Fair insight present (Psych) Judgement: Fair judgement present (Psych) Assessment & Plan Assessment & Plan (1) Alcohol use disorder: Comment: He is drinking about the same Code(s): F10.90 - Alcohol use, unspecified, uncomplicated Category: Medical Plan The plan of care is to continue with acamprosate 333 mg, two tablets-twice per day as prescribed by previous provider. Reduce alcohol consumption and consider entering a detox program. For Alcohol Use Disorder, t/w discussed discontinuing disulfiram due to the risks of alcohol toxicity and adverse effects if alcohol is consumed concurrently. We reinforced the significant health risks associated with his drinking pattern and stressed the importance of detox. Regarding his tobacco use and history of asthma; previous nicotine replacement therapies were ineffective or intolerable per patient report. Patient Instructions: - Continue with acamprosate 333 mg, two tablets, twice per day as prescribed by previous provider. - Discontinue the disulfiram 250 mg daily due to daily alcohol consumptions and risk for alcohol toxicity. - Consider inpatient detox following your colonoscopy to address alcohol use. - Avoid smoking, given your asthma history. - Follow up in one month or sooner, if needed. Reach out for support if you feel unable to manage your alcohol use at home. - Call immediately if you experience severe stomach pain or any other concerning symptoms. - The patient verbalized understanding and agreed with plan of care. Scribe Plan - Not visible on output: Patient was informed and verbally consented to the use of an ambient scribe for clinical note documentation during this visit. Coding Level of Care Code Est Pt Level 3 (73670) Diagnoses Alcohol use disorder F10.90
== END 2024-10-11 11:39 | disposition home or self-care (01) ==
PROVIDERS: PCP Family Medicine; Visit Provider Clinical Nurse Specialist Psychiatric/Mental Health
DX: F10.90 Alcohol use, unspecified, uncomplicated (principal)
CPT/HCPCS: 99213

== ENCOUNTER → 2024-10-11 11:05 | Outpatient (BNVA) | payer OTHER, SELFPAY | PROVIDERS: PCP Family Medicine; Visit Provider Clinical Nurse Specialist Psychiatric/Mental Health | DX: F10.90 Alcohol use, unspecified, uncomplicated (principal) | CPT/HCPCS: 99212 ==

== ENCOUNTER 2024-10-19 08:33 | Day surgery (SDC) | payer OTHER, SELFPAY ==
--- OUTSIDE RECORDS SUMMARY | 2024-10-01 14:10 | XMS_ITS | Encounter Summary ---
Author Organization [facility] Address [address] [place] [id number] Care Team Providers Care Maintenance Mechanic Supervisor Name Role Phone Inna Giron Primary Care Provider Senia Tovar MD Primary Care Provider [phone] Reason for Visit * Reason Comments Medication Refill Encounter Details Date Type Department Care Team (Late st Contact Info) Description 01/07/2021 Refill [facility], [place] [address] [place] [address] Nohelia Medrano MD [address] [place] [id number] Generalized abdominal pain Social History Tobacco Use [...] generalized documented in this encounter Care Teams Maintenance Mechanic Supervisor Relationship Specialty Start Date End Date Inna Giron PA [address] [place] [address] [address] [place] [address] PCP - General Physician [employer] 04/01/20 07/06/21 Senia Tovar MD [address] [place] [address] [place] [address] PCP - General General Pediatrics 07/07/21 documented as of this encounter
[2024-10-17 14:30] VITALS: BMI 29.3
--- NOTE | 2024-10-17 14:47 | HO.ANESPROP2 ---
Documented by User: Christie Butt NP 10/17/24 14:49 HPI - Anesthesia Eval Consult details Narrative: 24yo M for Upper Endoscopy and Colonoscopy [facility] Active Problems Active Problems: All Active Problems Alcoholic gastritis (Acute) Alcohol use disorder (Acute) IBS (irritable bowel syndrome) (Acute) Rectal pain (Acute) Severe persistent asthma (Acute) Abnormal EKG (Acute) Heart palpitations (Acute) Urinary hesitancy (Acute) Hemorrhoids (Acute) Environmental allergies (Acute) Prostate pain (Acute) Sleep apnea (Acute) Chalazion (Acute) Smoker (Acute) Subclinical hyperthyroidism (Acute) Fibromyalgia, primary (Acute) Paresthesia and pain of right extremity (Acute) Weakness of right upper extremity (Acute) Muscle spasms of neck (Acute) Globus sensation (Acute) Groin pain (Acute) Depression with anxiety (Acute) Multiple joint pain (Acute) Abdominal pain (Acute) Bone lesion (Acute) Intrinsic eczema (Acute) Asthma (Acute) Acid reflux (Acute) ETOH abuse (Acute) Constipation (Acute) Past Medical History Medical History Palpitations Fibromyalgia Sleep apnea IBS (irritable bowel syndrome) Asthma ETOH abuse Dizziness Atopic dermatitis Hypersomnolence Difficulty sleeping Pain in right hip Balanitis Adjustment reaction with mixed disturbance of emotions and conduct Depression Acid reflux Anxiety Constipation Family History Family History Mother Anxiety Depression Maternal Grandfather Substance abuse Maternal Grandmother Anxiety Depression Father Arthritis Surgical History Surgical History Hx of colonoscopy H/O endoscopy Social History Social History Household Members: Family Housing: House Alcohol intake: current Alcohol intake frequency: 0-2 drinks per day Alcohol type: beer, wine and hard liquor Comment: every day Patient Tobacco Use Status: Current everyday Tobacco user Tobacco use type: Cigarette Cigarettes Per Day: 5 e-Cigarette/Vaping Use: Currently Using Second Hand Smoke Exposure: No Use of substances other than those prescribed or required for medical reasons: No Substance Use Type: Marijuana Have you been hit, kicked, punched, or otherwise hurt by someone within the past year? 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 Sexual orientation: Did not discuss Cognitive needs: No Hearing needs: No Vision needs: No Meds Allergies Allergy/AdvReac Type Severity Reaction Status Date / Time banana Allergy Severe Anaphylaxis Verified 10/17/24 10:52 aspirin (ASA) Allergy Intermediate Swelling Verified 10/17/24 10:52 avocado Allergy Intermediate Swelling Verified 10/17/24 10:52 gluten Allergy Intermediate Abdominal Verified 10/17/24 10:52 Pain ibuprofen (IBUPROFEN) Allergy Intermediate ABD PAIN Verified 10/11/24 11:10 AND REFLUX lactose Allergy Intermediate Abdominal Verified 10/17/24 10:52 Pain house dust Allergy Unknown Unknown Verified 10/17/24 10:52 venlafaxine AdvReac Mild vomiting, Verified 10/11/24 11:10 disorintation seasonal Allergy Unknown unknown Uncoded 10/11/24 11:10 Home Medications ?Medication ?Instructions ?Recorded ?Confirmed ?Last Taken ?Type acamprosate 333 mg tablet,delayed 333 mg PO BID 09/19/24 10/17/24 Unknown History release loratadine 10 mg tablet (Allergy 10 mg PO DAILY 09/19/24 10/17/24 Unknown History Relief (loratadine)) triamcinolone acetonide 0.1 % 1 appl topical DAILY 09/19/24 10/11/24 Unknown History topical cream Exam Height,Weight and Vital Signs: Height 5 ft 5 in Weight 80 kg Narrative Narrative: EKG 08/2024 Vent. Rate : 113 BPM Atrial Rate : 113 BPM P-R Int : 122 ms QRS Dur : 80 ms QT Int : 294 ms P-R-T Axes : 30 23 19 degrees QTcB Int : 403 ms Sinus tachycardia Minimal voltage criteria for LVH, may be normal variant ( R in aVL ) Borderline ECG When compared with ECG of 06-Mar-2023 17:48, No significant change was found Documented by User: Kristen Castanon NP 10/17/24 15:07 HPI - Anesthesia Eval Consult details Narrative: 24 yo M for Upper Endoscopy and Colonoscopy ETOH abuse: In ED 09/19/24 for ETOH, passive suicial thoughts; Working with [facility] for ETOH cessation Asthma: on prn albuterol, previously seen by pulmonary; was advised to follow up with Dr. Mercado Smoker: nicotine vaping Takes Gabapentin PMFSH Past Medical History Medical History Palpitations Fibromyalgia Sleep apnea IBS (irritable bowel syndrome) Asthma ETOH abuse Dizziness Atopic dermatitis Hypersomnolence Difficulty sleeping Pain in right hip Balanitis Adjustment reaction with mixed disturbance of emotions and conduct Depression Acid reflux Anxiety Constipation Family History Family History Mother Anxiety Depression Maternal Grandfather Substance abuse Maternal Grandmother Anxiety Depression Father Arthritis Surgical History Surgical History Hx of colonoscopy H/O endoscopy Social History Social History Household Members: Family Housing: House Alcohol intake: current Alcohol intake frequency: 0-2 drinks per day Alcohol type: beer, wine and hard liquor Comment: every day Patient Tobacco Use Status: Current everyday Tobacco user Tobacco use type: Cigarette Cigarettes Per Day: 5 e-Cigarette/Vaping Use: Currently Using Second Hand Smoke Exposure: No Use of substances other than those prescribed or required for medical reasons: No Substance Use Type: Marijuana Have you been hit, kicked, punched, or otherwise hurt by someone within the past year? 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 Sexual orientation: Did not discuss Cognitive needs: No Hearing needs: No Vision needs: No Meds Allergies Allergy/AdvReac Type Severity Reaction Status Date / Time banana Allergy Severe Anaphylaxis Verified 10/17/24 10:52 aspirin (ASA) Allergy Intermediate Swelling Verified 10/17/24 10:52 avocado Allergy Intermediate Swelling Verified 10/17/24 10:52 gluten Allergy Intermediate Abdominal Verified 10/17/24 10:52 Pain ibuprofen (IBUPROFEN) Allergy Intermediate ABD PAIN Verified 10/11/24 11:10 AND REFLUX lactose Allergy Intermediate Abdominal Verified 10/17/24 10:52 Pain house dust Allergy Unknown Unknown Verified 10/17/24 10:52 venlafaxine AdvReac Mild vomiting, Verified 10/11/24 11:10 disorintation seasonal Allergy Unknown unknown Uncoded 10/11/24 11:10 Home Medications ?Medication ?Instructions ?Recorded ?Confirmed ?Last Taken ?Type acamprosate 333 mg tablet,delayed 333 mg PO BID 09/19/24 10/17/24 Unknown History release loratadine 10 mg tablet (Allergy 10 mg PO DAILY 09/19/24 10/17/24 Unknown History Relief (loratadine)) triamcinolone acetonide 0.1 % 1 appl topical DAILY 09/19/24 10/11/24 Unknown History topical cream Exam Pertinent Lab Results Pertinent Lab Results: Laboratory Tests 09/28/24 10:48 WBC 7.5 RBC 5.23 Hgb 14.5 Hct 42.1 Plt Count 329 Sodium 140 Potassium 4.2 D BUN 13 Creatinine 1.09 Documented by User: Mili Saez MD 10/19/24 10:05 [facility] Past Medical History Medical History Palpitations Fibromyalgia Sleep apnea IBS (irritable bowel syndrome) Asthma ETOH abuse Dizziness Atopic dermatitis Hypersomnolence Difficulty sleeping Pain in right hip Balanitis Adjustment reaction with mixed disturbance of emotions and conduct Depression Acid reflux Anxiety Constipation Family History Family History Mother Anxiety Depression Maternal Grandfather Substance abuse Maternal Grandmother Anxiety Depression Father Arthritis Family history of problems with anesthesia: No Surgical History Surgical History Hx of colonoscopy H/O endoscopy History of Problems with Anesthesia: No Social History Social History Household Members: Family Housing: House Alcohol intake: current Alcohol intake frequency: 0-2 drinks per day Alcohol type: beer, wine and hard liquor Comment: every day Patient Tobacco Use Status: Current everyday Tobacco user Tobacco use type: Cigarette Cigarettes Per Day: 5 e-Cigarette/Vaping Use: Currently Using Second Hand Smoke Exposure: No Use of substances other than those prescribed or required for medical reasons: No Substance Use Type: Marijuana Have you been hit, kicked, punched, or otherwise hurt by someone within the past year? 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 Sexual orientation: Did not discuss Cognitive needs: No Hearing needs: No Vision needs: No Meds Allergies Allergy/AdvReac Type Severity Reaction Status Date / Time banana Allergy Severe Anaphylaxis Verified 10/17/24 10:52 aspirin (ASA) Allergy Intermediate Swelling Verified 10/17/24 10:52 avocado Allergy Intermediate Swelling Verified 10/17/24 10:52 gluten Allergy Intermediate Abdominal Verified 10/17/24 10:52 Pain ibuprofen (IBUPROFEN) Allergy Intermediate ABD PAIN Verified 10/11/24 11:10 AND REFLUX lactose Allergy Intermediate Abdominal Verified 10/17/24 10:52 Pain house dust Allergy Unknown Unknown Verified 10/17/24 10:52 venlafaxine AdvReac Mild vomiting, Verified 10/11/24 11:10 disorintation seasonal Allergy Unknown unknown Uncoded 10/11/24 11:10 Home Medications ?Medication ?Instructions ?Recorded ?Confirmed ?Last Taken ?Type acamprosate 333 mg tablet,delayed 333 mg PO BID 09/19/24 10/17/24 Unknown History release loratadine 10 mg tablet (Allergy 10 mg PO DAILY 09/19/24 10/17/24 Unknown History Relief (loratadine)) triamcinolone acetonide 0.1 % 1 appl topical DAILY 07/02/25 07/24/25 Unknown History topical cream Exam Airway Mallampati Class: I TM Dist: >3cm Neck ROM: Full Assessment and Plan Assessment Anesthesia Assessment: Anesthesia Plan Discussed and Chart Reviewed Final Anesthetic Review Family History of Problems with Anesthesia: No History of Problems with Anesthesia: No NPO: Yes ASA Class: II Final Preanesthetic Review: No Changes in Pt Med Stat, Meds/Allgs Chart Reviewed, Consent Obtained/Reviewed and Anes Risks/Benef Reviewed Patient Risk: Low Procedure Risk: Low Anesthetic Plan Anesthetic Plan: TIVA Disposition: Standard PACU
[2024-10-19 09:05] VITALS: BMI 29.5
[2024-10-19 09:13] VITALS: BP 122/61; PULSE 57; RESP 16; TEMP 36.6; O2SAT 96
--- NOTE | 2024-10-19 09:54 | MHC.SHP ---
Pre-Procedural Eval Section A - 24 Hr Update-Section A only Date of Service: 10/19/24 The patient is an INPATIENT: No The patient has been examined within 24 hours of the surgical procedure. The History & Physical has been completed within 30 days and I have reviewed it.: Yes Section B - Complete if H&P > 30 days Chief Complaint: Generalized abdominal pain,gerd, Allergies: Allergies Allergy/AdvReac Type Severity Reaction Status Date / Time banana Allergy Severe Anaphylaxis Verified 10/17/24 10:52 aspirin (ASA) Allergy Intermediate Swelling Verified 10/17/24 10:52 avocado Allergy Intermediate Swelling Verified 10/17/24 10:52 gluten Allergy Intermediate Abdominal Verified 10/17/24 10:52 Pain ibuprofen (IBUPROFEN) Allergy Intermediate ABD PAIN Verified 10/11/24 11:10 AND REFLUX lactose Allergy Intermediate Abdominal Verified 10/17/24 10:52 Pain house dust Allergy Unknown Unknown Verified 10/17/24 10:52 venlafaxine AdvReac Mild vomiting, Verified 10/11/24 11:10 disorintation seasonal Allergy Unknown unknown Uncoded 10/11/24 11:10 Plan Diagnosis/Plan: Unchanged I have reviewed the history and physical and performed a pertinent physical examination on my patient. No changes have occurred unless specified. Time Spent With Patient Time: Total time managing care of this patient today ____ minutes.
[2024-10-19] MEDS: Lactated Ringers 1,000 ML 80 ML IVCONT (10:02)
[2024-10-19 10:50] VITALS: BP 115/60; PULSE 78; RESP 18; TEMP 36.3; O2SAT 98
--- NOTE | 2024-10-19 10:53 | P.OPN-COLO_ITS ---
Colonoscopy Operative Note Operative Note Date of Service: 10/19/24 Narrative: Procedure: Upper endoscopy and colonoscopy Indication: Abd pain, dysphagia, rectal bleeding Endoscopist: Meghna Estrada MD Anesthesia Provider: Dr Mili Saez Anesthesia type: MAC Instrument: [id number] and [id number] EGD Procedure:?? The procedure, indications, preparation and potential complications were reviewed with the patient, who indicated understanding and gave written informed consent to proceed. The endoscope was introduced through the mouth, and advanced to the 2nd part of the duodenum. The mucosa was carefully examined on slow withdrawal of the endoscope. The patient tolerated the procedure well. There were no immediate complications.? EGD Findings:? * Esophagus:? Normal esophageal mucosa was noted. The Z-line was at 36 cm. Cold forceps biopsies were taken from middle and lower esophagus to rule out eosinophilic esophagitis. * Stomach:? Normal gastric mucosa.. Retroflexion was performed in the cardia. Cold forceps biopsies were taken from the gastric antrum and body for histology. * Duodenum:? Mild focal erythema in the anterior duodenal bulb remaining mucosa otherwise normal to the extent examined. Cold forceps biopsies were taken from the duodenal bulb and 2nd portion of the duodenum to rule out celiac sprue. Additional intervention: Patient had reported intermittent choking with solid foods in the preop. Soft tipped Savary wire was introduced through the biopsy channel of the gastroscope and advanced to the antrum. ?The gastroscope was then backed out. ?Savary Gavino bougie was advanced over the guidewire and the e sophagus was dilated to 18mm without any resistance felt. ?On relook, no heme or tear was noted. ? Colonoscopy Procedure:? The patient was then turned for the colonoscopy. A digital rectal exam was performed which was normal.? A distal attachment cap was affixed to the tip of the scope and the colonoscope was then inserted through the anus and advanced through the colon and advanced to the cecum at 70 cm and terminal ileum.? Appendiceal orifice and ileocecal valve were identified. Mucosa was carefully examined under high definition white light as the instrument was slowly withdrawn in a retrograde panoramic fashion. Retroflexion was performed in ascending colon and rectum. The procedure was not difficult. The quality of the prep was BBPS: 3+2+3= adequate Withdrawal time 6 minutes Limitations: No limitations Findings: Mucosa: Normal colon and terminal ileum mucosa. Cold forceps biopsies were taken from the right and left side of the colon to rule out microscopic colitis. Protruding lesions: * Medium internal hemorrhoids without stigmata of recent bleeding. Impression: 1. Normal esophagus (biopsy, dilation) 2. Normal stomach (biopsy) 3. Bulbar duodenitis (biopsy) 4. Normal colon and terminal ileum mucosa (biopsy) 5. Internal hemorrhoids Recommendations:?? * No obvious narrowing in esophagus was noted on endoscopy today, empiric dilation was performed due to reported symptoms. * Follow-up path results * Avoid NSAIDs * H Pylori treatment if biopsies + * Start asymptomatic colorectal cancer screening at 45 years of age
[2024-10-19 11:05] VITALS: BP 104/65; PULSE 60; RESP 16; TEMP 36.4; O2SAT 97
== END 2024-10-19 11:49 | disposition home or self-care (01) ==
PROVIDERS: PCP Family Medicine; Visit Provider Internal Medicine
PROC: (CPT 45380; principal; 2024-10-19 09:30)
DX: R10.84 Generalized abdominal pain (principal); K52.9 Noninfective gastroenteritis and colitis, unspecified; K64.8 Other hemorrhoids; R13.10 Dysphagia, unspecified; K21.9 Gastro-esophageal reflux disease without esophagitis; K29.80 Duodenitis without bleeding; K29.50 Unspecified chronic gastritis without bleeding; N48.1 Balanitis; J45.909 Unspecified asthma, uncomplicated; F32.A Depression, unspecified; F41.9 Anxiety disorder, unspecified; G47.33 Obstructive sleep apnea (adult) (pediatric); F10.10 Alcohol abuse, uncomplicated; Z79.899 Other long term (current) drug therapy; Z88.6 Allergy status to analgesic agent; F17.210 Nicotine dependence, cigarettes, uncomplicated
CPT/HCPCS: 45380; 43248; 43239; 88305; 88313; 88342; C1769; J2003; J2704

== ENCOUNTER → 2024-10-19 08:33 | Outpatient (BNV) | payer OTHER, SELFPAY | PROVIDERS: PCP Family Medicine; Visit Provider Internal Medicine | DX: K22.2 Esophageal obstruction (principal); K29.80 Duodenitis without bleeding; R13.10 Dysphagia, unspecified; K62.5 Hemorrhage of anus and rectum | CPT/HCPCS: 43239; 43248; 45380 ==

== ENCOUNTER 2024-10-22 13:52 | Outpatient (AMB) | payer OTHER, SELFPAY ==
--- NOTE | 2024-10-22 13:59 | MHC.OFFVIS ---
Vital Signs 10/22/24 14:00 Height 5 ft 5 in Intake Visit Reasons: Migrane,insomnia Allergies banana Allergy (Severe, Verified 10/22/24 14:09) Anaphylaxis aspirin (ASA) Allergy (Intermediate, Verified 10/22/24 14:09) Swelling avocado Allergy (Intermediate, Verified 10/22/24 14:09) Swelling gluten Allergy (Intermediate, Verified 10/22/24 14:09) Abdominal Pain ibuprofen (IBUPROFEN) Allergy (Intermediate, Verified 10/22/24 14:09) ABD PAIN AND REFLUX lactose Allergy (Intermediate, Verified 10/22/24 14:09) Abdominal Pain house dust Allergy (Unknown, Verified 10/22/24 14:09) Unknown venlafaxine Adverse Reaction (Mild, Verified 10/22/24 14:09) vomiting, disorintation seasonal Allergy (Unknown, Uncoded 10/22/24 14:09) unknown Medication List - Last Reconciled 10/22/24 by Zuleika Riley, [employer] acamprosate 333 mg PO BID albuterol sulfate 90 mcg/actuation (Ventolin HFA) 2 puffs inhalation Q4-6H PRN dicyclomine 10 mg PO TID 90 days esomeprazole magnesium 20 mg PO DAILY gabapentin 100 mg PO TID 30 days lidocaine HCl-hydrocortison ac 3-1 % (7 gram) 1 ea VT BID loratadine (Allergy Relief (loratadine)) 10 mg PO DAILY magnesium citrate 300 mL PO ONCE polyethylene glycol 3350 (Miralax) 17 grams PO DAILY 30 days polyethylene glycol 3350 (Miralax) 238 grams PO ONCE sennosides (senna) Take 2 capsules nightly, starting 3 days prior to colonoscopy 3 days triamcinolone acetonide 0.1% 1 appl topical DAILY HPI Comments Details: 24-year-old man with depression, anxiety, and alcohol-use disorder taking acamprosate, last seen the office in 02/2023, here today with increased headaches, difficulty sleeping, and memory concerns. Headaches were happening almost every other day. Pain usually to right side of head, behind eye, throbbing-type, with photophobia and sonophobia. He reports constant nausea and had recent endoscopy and colonoscopy. He was using Tylenol as needed which helped ?20% of the time? and would go to sleep. Sleep at night was not so good. He was more forgetful over the last few months. He had trouble focusing and concentrating. He was under a lot of stress at this time. He was out of work at this time due to health. 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 He was seen by his PCP and [facility] at the beginning of 09/2024 for alcohol use disorder. He was drinking ?nothing under 84mL a day? of usually whiskey, cognac, vodka, or wine coolers. He was working with therapist, comprehensive care, and was considering detox program. Hx of somatic complaints, depression, anxiety, psychosomatic tendencies. In 06/2021, became very lightheaded and had syncopal episode, felt weaker after. Blurry vision, loses vision, sometimes loses feeling in arms, other times feels off balance and uncoordinated. Trouble focusing, has peripheral visual constriction, feels he is going to fall. Migraines since age 16, bad one in 02/2022 with photophobia, occur about 1x/month. REPLACED BY [facility] Medical History (Updated 10/22/24 @ 14:21 by Zuleika Riley CNP) Palpitations Fibromyalgia Sleep apnea IBS (irritable bowel syndrome) Asthma ETOH abuse Dizziness Atopic dermatitis Hypersomnolence Difficulty sleeping Pain in right hip Balanitis Adjustment reaction with mixed disturbance of emotions and conduct Depression Acid reflux Anxiety Constipation Surgical History Hx of colonoscopy H/O endoscopy Family History Mother Anxiety Depression Maternal Grandfather Substance abuse Maternal Grandmother Anxiety Depression Father Arthritis Social History Household Members: Family Housing: House Alcohol intake: current Alcohol intake frequency: 0-2 drinks per day Alcohol type: beer, wine and hard liquor Comment: every day Patient Tobacco Use Status: Current everyday Tobacco user Tobacco use type: Cigarette Cigarettes Per Day: 5 e-Cigarette/Vaping Use: Currently Using Second Hand Smoke Exposure: No Substance Use Type: Marijuana service: No Current occupational status: employed 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 Sexual orientation: Did not discuss Cognitive needs: No Hearing needs: No Vision needs: No Review of Systems Const Denies chills, Denies daytime sleepiness, Reports difficulty sleeping, Reports fatigue, Denies fever(s), Denies frequent falls, Reports headache(s), Denies increased appetite, Denies poor appetite, Reports snoring, Denies weakness, Denies weight gain and Denies weight loss Eyes Denies loss of vision ENT Denies vertigo, Reports dizziness, Reports headache(s) and Reports neck pain Card Denies chest pain at rest, Denies chest pain with activity, Denies syncope, Denies leg edema, Denies palpitations, Denies dyspnea and Denies dyspnea on exertion Resp Denies cough, Denies dyspnea, Denies dyspnea on exertion and Reports snoring GI Denies abdominal pain, Denies constipation, Denies heartburn, Denies diarrhea and Denies nausea Reports urinary frequency, Denies urinary incontinence and Denies urinary urgency Musc Denies abnormal gait, Reports back pain, Denies myalgias, Denies arthralgias, Reports neck pain, Reports numbness and Reports tingling Neuro Denies abnormal gait, Denies vertigo, Reports dizziness, Denies syncope, Denies frequent falls, Reports headache(s), Denies lack of coordination, Denies loss of vision, Denies memory loss, Reports numbness, Denies Other visual disturbances, Denies restless legs, Denies seizure-like activity, Reports tingling, Denies paresthesias, Denies tremor(s) and Denies weakness Psych Reports anxiety, Reports depression, Denies auditory hallucinations, Denies memory loss and Denies visual hallucinations Endo Reports fatigue and Denies palpitations Physical Exam Const Other: General Appearance:? normal, in no acute distress. Heart:? S1, S2 normal, no murmurs. Lungs:? clear anteriorly and posteriorly. Musculoskeletal:? normal. Extremities:? no edema. Psych:? alert, oriented, cognitive function intact, cooperative with exam. Neuro Other: Abnormal Neurological Findings:?Some give away weakness on R.? Mental Status: alert and oriented X 3. Normal attention, orientation, memory, and affect. Cranial Nerves: Pupils are equal, round, and reactive to light. External ocular muscles are intact. Visual rivera are full, no ptosis. Face is symmetrical, no facial weakness or droop. Facial sensations are normal. Tongue protrudes in midline. Palate elevates symmetrically. Shoulder shrugging is normal Motor Examination: As above, otherwise normal muscle tone, bulk and strength. No atrophy or fasciculations. No drift of the extended upper extremities. DTR 2+. Plantars are flexor. Straight Leg Raisin degrees. Sensory Exam: Normal light touch, temperature, pinprick, vibration, and joint-position sensations. Rhomberg sign is absent. Coordination: No ataxia. No titubation. Zxwyvz-bd-ydus, jumo-yxrk-bnjw test, and rapid alternating movements were normal. Gait Exam: Within normal limits. Cerebellar Signs: Lysgws-dm-suxt and sseg-jb-yzmp is normal. No dysdiadochokinesia. Extrapyramidal System: No tremor, rigidity with normal facial expressions. No bradykinesia. No bradyphrenia. Normal arm swing and posture. No propulsion or retropulsion. Speech: Normal. No dysphasia or dysarthria. Results Reviewed Results Reviewed: Laboratory Tests 09/19/24 09/19/24 09/28/24 17:32 19:39 10:48 WBC 7.5 RBC 5.23 Hgb 14.5 Hct 42.1 MCV 80.5 MCH 27.7 MCHC 34.4 RDW 14.2 Plt Count 329 MPV 9.7 Sodium 140 Potassium 4.2 D Chloride 104 Carbon Dioxide 30 H Anion Gap 10 L BUN 13 Creatinine 1.09 Estimated GFR > 60 Fasting Glucose 97 Calcium 9.6 Total Bilirubin 0.5 AST 24 ALT 36 Alkaline Phosphatase 71 Total Protein 7.6 Albumin 4.9 Vitamin B12 550 1,25 Dihydroxy Vit D 32 Folate 7.8 Urine Opiates Screen Not Detected Ur Buprenorphine Scrn Not Detected Ur Oxycodone Screen Not Detected Urine Methadone Screen Not Detected Urine Fentanyl Screen Not Detected Ur Barbiturates Screen Not Detected Ur Phencyclidine Scrn Not Detected Ur Amphetamines Screen Not Detected U Benzodiazepines Scrn Not Detected Urine Cocaine Screen Not Detected U Marijuana (THC) Screen Not Detected Ethyl Alcohol [address] [address] [address] Scan Report Signed Patient: Jaya Mckeon MR#: [id number] : 2000 Acct:[id number] Age/Sex: 23 / M ADM Date: 05/05/24 Loc: HO.ED Attending Dr: Ordering Physician: Louisa Thompson DO Date of Service: 05/05/24 Procedure(s): CT head/brain wo IV con Accession Number(s): [id number] cc: Louisa Thompson DO; Eduardo Marquez MD~ Report Number: [id number]: Total DLP = 662.00 mGy-cm CLINICAL HISTORY: HEADACHE CT head without contrast Comparison: None Findings: No intra-axial mass, midline shift, hydrocephalus, or acute hemorrhage. No significant atrophy-like change or white matter disease. The visualized paranasal sinuses and mastoid air cells are normal. The orbits are within normal limits. No skull fracture. IMPRESSION: 1. No acute intracranial findings. This document has been electronically signed by: Roberto Galarza MD on 05/05/2024 12:15:11 [place] [address] Magnetic Resonance Report Signed Patient: Jaya Mckeon MR#: [id number] : 2000 Acct:[id number] Age/Sex: 22 / M ADM Date: 04/28/23 Loc: HO.MRI Attending Dr: Kaycee Alan MD Ordering Physician: Kaycee Alan MD Date of Service: 04/28/23 Procedure(s): MR head/brain wo con Accession Number(s): [id number] cc: Eduardo Marquez MD; Kaycee Alan MD~ EXAMINATION: MR BRAIN WITHOUT CONTRAST CLINICAL INFORMATION: Demyelinating disease COMPARISON: None TECHNIQUE: Multiplanar multisequence MR imaging of the brain was obtained without intravenous contrast. FINDINGS: There is no acute infarct on diffusion-weighted imaging. There is no intracranial hemorrhage on iron-sensitive imaging. No extra-axial collection or mass effect/herniation. Normal parenchymal signal characteristics. No hydrocephalus. The ventricles are normal in morphology and size. The major flow voids at the skull base are preserved. The midline structures are normal. The cerebellar tonsils are normally positioned. The craniocervical junction is normal. Marrow signal is within normal limits. The visualized soft tissues are without significant abnormality. No signal abnormality within the paranasal sinuses or within the mastoid air cells. MR/MR head/brain wo con IMPRESSION: Unremarkable noncontrast MRI of the brain. No evidence of demyelinating disease as queried. Assessment & Plan Assessment & Plan (1) Migraine: Code(s): G43.909 - Migraine, unspecified, not intractable, without status migrainosus Category: Medical Qualifiers: Intractability: not intractable Migraine type: unspecified Status migrainosus presence: without status migrainosus Qualified Code(s): G43.909 - Migraine, unspecified, not intractable, without status migrainosus Plan: Labs 09/2023 reviewed, ETOH 12, otherwise UTOX negative. Head CT 04/2024 and brain MRI 04/2023 reviewed with no acute findings, no evidence of demyelinating disease. Start amitriptyline, use/side effects reviewed. Discussed common migraine triggers to be aware of. (2) Insomnia: Code(s): G47.00 - Insomnia, unspecified Category: Medical Qualifiers: Insomnia type: unspecified Qualified Code(s): G47.00 - Insomnia, unspecified Plan: Amitriptyline may also help with sleep, and possibly anxiety. (3) Anxiety: Comment: extreme Code(s): F41.9 - Anxiety disorder, unspecified Category: Medical Plan: Amitriptyline may also help with sleep, and possibly anxiety. Continue to work with therapist. (4) Alcohol use disorder: Comment: He is drinking about the same Code(s): F10.90 - Alcohol use, unspecified, uncomplicated Category: Medical Plan: Continue to work with therapist, comprehensive care. Alcohol use can affect memory. Medications: New amitriptyline 25 mg PO BEDTIME 30 tabs 1RF 30 days Coding Level of Care Code Est Pt Level 4 (05981) Diagnoses Migraine without status migrainosus, not intractable, unspecified migraine type G43.909 Intractability: not intractable Migraine type: unspecified Status migrainosus presence: without status migrainosus Insomnia, unspecified type G47.00 Insomnia type: unspecified Anxiety F41.9 Alcohol use disorder F10.90
== END 2024-10-22 14:29 | disposition home or self-care (01) ==
LOC: HO.HSM 13:53
PROVIDERS: PCP Family Medicine; Visit Provider Registered Nurse
DX: G43.909 Migraine, unspecified, not intractable, without status migrainosus (principal); G47.00 Insomnia, unspecified; F41.9 Anxiety disorder, unspecified; F10.90 Alcohol use, unspecified, uncomplicated
CPT/HCPCS: 99214

== ENCOUNTER → 2024-10-22 13:52 | Outpatient (BNVA) | payer OTHER, SELFPAY | PROVIDERS: PCP Family Medicine; Visit Provider Registered Nurse | DX: G43.909 Migraine, unspecified, not intractable, without status migrainosus (principal); G47.00 Insomnia, unspecified; F41.9 Anxiety disorder, unspecified; F10.19 Alcohol abuse with unspecified alcohol-induced disorder; Z79.899 Other long term (current) drug therapy | CPT/HCPCS: 99212 ==

== ENCOUNTER 2024-11-08 10:47 | Outpatient (AMB) | payer OTHER, SELFPAY ==
--- NOTE | 2024-11-08 10:51 | A.OFFVIS_ITS ---
Vital Signs 11/08/24 10:52 Height 5 ft 5 in Weight 185 lb BMI 30.8 BP 120/70 Pulse 110 H Pulse Oximetry (%) 97 Intake Visit Reasons: MAT Allergies banana Allergy (Severe, Verified 11/08/24 10:53) Anaphylaxis aspirin (ASA) Allergy (Intermediate, Verified 11/08/24 10:53) Swelling avocado Allergy (Intermediate, Verified 11/08/24 10:53) Swelling gluten Allergy (Intermediate, Verified 11/08/24 10:53) Abdominal Pain ibuprofen (IBUPROFEN) Allergy (Intermediate, Verified 11/08/24 10:53) ABD PAIN AND REFLUX lactose Allergy (Intermediate, Verified 11/08/24 10:53) Abdominal Pain house dust Allergy (Unknown, Verified 11/08/24 10:53) Unknown venlafaxine Adverse Reaction (Mild, Verified 11/08/24 10:53) vomiting, disorintation seasonal Allergy (Unknown, Uncoded 11/08/24 10:53) unknown HPI Comments Details: A 24-year-old male presents for a follow-up visit r/t AUD and reports continuing to drink on average anywhere from 1 to 4 [employer] wine coolers per day. Denies use of opiates and other substances. Reports not taking the acamprosate as he threw the medication away by mistake. During the prior visit the disulfiram prescribed by another provider was discontinued and reports getting confused and instead of getting rid of the disulfiram he mistakenly got rid of the acamprosate. Continued education provided regarding risk reduction activities to minimize alcohol consumption and advised to consider inpatient detox tr eatment. Additional education provided regarding acamprosate medication, including side effects, purpose, and general medication information. Patient reminded not to take disulfiram as this medication was discontinued during the last medication management visit. The patient engages in conversation regarding what may be associated with a somatic symptoms disorder, it is important to note the patient has undergone various evaluations that have thus far been negative. Encouraged to follow-up with mental health services. [facility] Medical History (Updated 10/22/24 @ 14:21 by Zuleika Riley CNP) Palpitations Fibromyalgia Sleep apnea IBS (irritable bowel syndrome) Asthma ETOH abuse Dizziness Atopic dermatitis Hypersomnolence Difficulty sleeping Pain in right hip Balanitis Adjustment reaction with mixed disturbance of emotions and conduct Depression Acid reflux Anxiety Constipation Surgical History Hx of colonoscopy H/O endoscopy Family History Mother Anxiety Depression Maternal Grandfather Substance abuse Maternal Grandmother Anxiety Depression Father Arthritis Social History Household Members: Family Housing: House Alcohol intake: current Alcohol intake frequency: 0-2 drinks per day Alcohol type: beer, wine and hard liquor Comment: every day Patient Tobacco Use Status: Current everyday Tobacco user Tobacco use type: Cigarette Cigarettes Per Day: 5 e-Cigarette/Vaping Use: Currently Using Second Hand Smoke Exposure: No Substance Use Type: Marijuana service: No Current occupational status: employed 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 Sexual orientation: Did not discuss Cognitive needs: No Hearing needs: No Vision needs: No Review of Systems Const All systems reviewed & are unremarkable except as noted in HPI and below Physical Exam Vital Signs: Last Vital Signs Pulse 110 H 11/08/24 10:52 BP 120/70 11/08/24 10:52 Pulse Ox 97 11/08/24 10:52 BMI result Body Mass Index 30.8 Const General: cooperative Orientation/consciousness: patient oriented x3 Limitations: no limitations Neuro General: patient oriented x3 Psych Appearance: well kempt Mental Status: mental status grossly normal Speech and movement: Normal speech and movement present Affect: Sad affect present Attitude: cooperative Thought process: Circumstantial thought process present Thought content: Obsession(s) present (Related to medical symptoms ) Insight: Fair insight present (Psych) Judgement: Fair judgement present (Psych) Assessment & Plan Assessment & Plan (1) Alcohol use disorder: Comment: He is drinking about the same Code(s): F10.90 - Alcohol use, unspecified, uncomplicated Category: Medical Plan The plan of care is to start on acamprosate 333 mg 2 tablets TID and you utilize risk reduction activities to minimize alcohol consumption. Follow-up in 2 months or sooner if needed. Follow-up with mental health services. A referral will be sent for a peer cross country coach. Medications: Changed From acamprosate administer with mid-day and evening meals 333 mg PO BID To acamprosate Take two tablets by mouth three times per day. 666 mg (2 x 333 mg) PO TID 180 tabs 0RF 30 days Patient Instructions: - Start on acamprosate as prescribed. - Utilize risk reduction activities to minimize alcohol consumption. - Follow-up with mental health services. - A referral will be sent for peer cross country coach who will be in contact. - Follow-up in 2 months or sooner if needed. - Call with questions, concerns, or to report side effects/new onset of symptoms to [facility] - The patient verbalized understanding and agreed with plan of care. Coding Level of Care Code Est Pt Level 3 (55831) Diagnoses Alcohol use disorder F10.90
[2024-11-08 10:52] VITALS: BP 120/70; PULSE 110; O2SAT 97; BMI 30.8
== END 2024-11-08 11:29 | disposition home or self-care (01) ==
PROVIDERS: PCP Family Medicine; Visit Provider Clinical Nurse Specialist Psychiatric/Mental Health
DX: F10.90 Alcohol use, unspecified, uncomplicated (principal)
CPT/HCPCS: 99213

== ENCOUNTER → 2024-11-08 10:47 | Outpatient (BNVA) | payer OTHER, SELFPAY | PROVIDERS: PCP Family Medicine; Visit Provider Clinical Nurse Specialist Psychiatric/Mental Health | DX: F10.90 Alcohol use, unspecified, uncomplicated (principal); Z79.899 Other long term (current) drug therapy | CPT/HCPCS: 99212 ==

== ENCOUNTER 2024-11-08 20:36 | Inpatient (IN) | payer OTHER, SELFPAY ==
[2024-11-08 20:43] VITALS: BP 123/68; BP 146/82; PULSE 85; PULSE 99; RESP 17; TEMP 36.7; O2SAT 98; BMI 24.5
--- NOTE | 2024-11-08 20:46 | PC.NURSE ---
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
[2024-11-08 21:13] LABS: MANUAL DIFF FLAG NO
[2024-11-08 21:15] LABS: Hematocrit 41.3 % (42.0-52.0); Hemoglobin 13.9 g/dl (14.0-18.0); Imm Gran Abs Auto 0.03 X10*3/uL (0.00-0.03); Imm Gran Pct Auto 0.4 % (0.0-0.4); Lymphocytes Absolute Auto 2.5 X10*3/uL (1.2-4.9); Mean Corpuscular HGB Conc 33.7 g/dl (31.0-36.0); Mean Corpuscular Hemoglobin 27.7 pg (27.0-33.0); Mean Corpuscular Volume 82.4 fL (80.0-98.0); NRBC Abs Auto 0.000 X10*3/uL (0.0-0.012); NRBC Pct Auto 0.0 /100WBC (0.0-0.2); Platelet Count 308 X10*3/uL (160-400); Red Blood Count 5.01 X10*6/uL (4.60-5.80); White Blood Count 6.9 X10*3/uL (4.8-10.8)
[2024-11-08 21:28] LABS: Cannabinoid Screen Urine Not Detected (Not Detect)
[2024-11-08 21:34] LABS: Alanine Aminotransferase 29 U/L (0-40); Albumin Level 4.8 g/dL (3.5-5.0); Alkaline Phosphatase 92 U/L (39-117); Anion Gap 16 (12-20); Aspartate Amino Transferase 28 U/L (5-37); Blood Urea Nitrogen 12 mg/dL (9-16); Calcium 8.9 mg/dL (8.4-10.2); Carbon Dioxide 24 mmol/L (22-29); Chloride 107 mmol/L (96-108); Creatinine Clr Calc Pharmacy 95.9; Estimated Glomerular Filt Rate > 60; Potassium 3.8 mmol/L (3.3-5.1); Sodium 143 mmol/L (135-145); Total Protein 7.7 g/dL (6.5-8.0)
--- NOTE | 2024-11-08 21:51 | ED.PSYCH ---
HPI - Psych General Chief Complaint: Psychiatric Symptoms Stated Complaint: SI Time Seen by Provider: 11/08/24 20:59 Source: patient, EMS and old records reviewed Mode of arrival: EMS Limitations: no limitations History of Present Illness ED Provider: ANEL GUSTAFSON Narrative: 24 yo male with PMH Of IBS, alcohol use disorder, migraine, anxiety, asthma, GERD here with c/o ETOH use and states he wants to kill himself. He plans to buy a firearm in 6 years and do it. He states he is very depressed. He has no access to firearms at this time MD complaint: suicidal ideation and feels depressed Onset (ago): week(s) Duration: getting worse History of same: Yes Relieving factors: none Exacerbating factors: alcohol and other Context: recent alcohol abuse Associated psychiatric symptoms: depression and suicidal ideation Associated symptoms: denies other symptoms Treatments prior to arrival: none If self harm: admits thoughts of self harm and has plan Related Data Home Medications ?Medication ?Instructions ?Recorded ?Confirmed loratadine 10 mg tablet (Allergy 10 mg PO DAILY 09/19/24 11/09/24 Relief (loratadine)) triamcinolone acetonide 0.1 % 1 appl topical DAILY 09/19/24 11/09/24 topical cream disulfiram 250 mg tablet 250 mg PO DAILY 11/09/24 11/09/24 hydrocortisone 2.5 % topical cream 1 appl RI USEASDIRECTD PRN 11/09/24 11/09/24 with perineal applicator Hemorrhoids inhalational spacing device 11/09/24 11/09/24 ([facility] spacer) ketoconazole 2 % topical cream 1 appl topical DAILY 11/09/24 11/09/24 ondansetron 4 mg disintegrating 4 mg PO Q6-8H PRN nausea/vomiting 11/09/24 11/09/24 tablet sennosides 8.6 mg tablet (senna) 8.6 mg PO DAILY PRN Constipation 11/09/24 11/09/24 Previous Rx's ?Medication ?Instructions ?Recorded esomeprazole magnesium 20 mg 20 mg PO DAILY #90 caps 09/19/24 capsule,delayed release dicyclomine 10 mg capsule 10 mg PO TID 90 days #270 caps 10/02/24 polyethylene glycol 3350 17 17 g PO DAILY constipation 30 days 10/11/24 gram/dose oral powder (Miralax) #510 grams amitriptyline 25 mg tablet 25 mg PO BEDTIME 30 days #30 tabs 10/22/24 albuterol sulfate 90 mcg/actuation 2 puff inhalation Q4-6H PRN 11/05/24 aerosol inhaler (Ventolin HFA) Shortness Of Breath #1 ea acamprosate 333 mg tablet,delayed 666 mg (2 x 333 mg) PO TID 30 days 11/08/24 release #180 tabs Allergies Allergy/AdvReac Type Severity Reaction Status Date / Time banana Allergy Severe Anaphylaxis Verified 11/08/24 20:45 aspirin (ASA) Allergy Intermediate Swelling Verified 11/08/24 20:45 avocado Allergy Intermediate Swelling Verified 11/08/24 20:45 gluten Allergy Intermediate Abdominal Verified 11/08/24 20:45 Pain ibuprofen (IBUPROFEN) Allergy Intermediate ABD PAIN Verified 11/08/24 20:45 AND REFLUX lactose Allergy Intermediate Abdominal Verified 11/08/24 20:45 Pain house dust Allergy Unknown Unknown Verified 11/08/24 20:45 venlafaxine AdvReac Mild vomiting, Verified 11/08/24 20:45 disorintation seasonal Allergy Unknown unknown Uncoded 11/08/24 20:45 Review of Systems Review of Systems: Constitutional : No Fever, No Chills ENT/Mouth : No Ear Pain, No Nasal Congestion, No sore throat Eyes: No Eye Pain, No Swelling, No Redness Cardiovascular : No Chest Pain, No SOB Respiratory : No Cough, No Sputum, No Dyspnea Gastrointestinal : No Nausea, No Vomiting, No Diarrhea, No Hematochezia, No Melena Genitourinary : No Dysuria, No Urinary Frequency, No Hematuria Musculoskeletal : No Myalgias Skin : No Skin Lesions, No rash Neuro : No Weakness, No Numbness, No Paresthesias, No Dizziness, No Headache Psych : positive Anxiety, positive Depression, positive SI, no HI All other systems reviewed and are negative PMFSH Past Medical History Attestation statement: The following information was validated with the patient. Source: old records reviewed Medical History Palpitations Fibromyalgia Sleep apnea IBS (irritable bowel syndrome) Asthma ETOH abuse Dizziness Atopic dermatitis Hypersomnolence Difficulty sleeping Pain in right hip Balanitis Adjustment reaction with mixed disturbance of emotions and conduct Depression Acid reflux Anxiety Constipation Surgical History Hx of colonoscopy H/O endoscopy Family History Family History Mother Anxiety Depression Maternal Grandfather Substance abuse Maternal Grandmother Anxiety Depression Father Arthritis Social History Social History Household Members: Family Housing: House Do you presently have visiting nurse or other home services: No Alcohol intake: current Alcohol intake frequency: 3 or more drinks per day Alcohol type: hard liquor Comment: every day Patient Tobacco Use Status: Current everyday Tobacco user Tobacco use type: Cigarette Cigarette Packs Per Day: 0 Cigarettes Per Day: 0 Smoked in Last 30 Days: Yes e-Cigarette/Vaping Use: Currently Using Frequency of e-Cigarette/Vaping Use: Every Few Minutes Patient Interested in Nicotine Replacement: Yes Patient Given Instructions on How to Stop Smoking: Yes Date Education Initiated: 11/09/24 Second Hand Smoke Exposure: No Use of substances other than those prescribed or required for medical reasons: No Substance Use Type: Marijuana Currently Displaying Signs/Symptoms of Drug Intoxication Withdrawal: No Have you been hit, kicked, punched, or otherwise hurt by someone within the past year? If so, by whom?: No Do you feel safe in your current relationship?: No Current Relationship Is there a partner from a previous relationship who is making you feel unsafe now?: No Are you made to feel afraid or neglected: No Advance Directives: No Advance Directives Information Provided: No (declined) Do you have thoughts of harming others: None Do you have a plan to hurt others: No Plan Recently lost weight without trying: No How much weight loss: Not applicable Eating poorly because of decreased appetite: No Nutrition screen score: 0 Nutrition Risks: No Nutritional Risk Poor oral hygiene: No service: No Current occupational status: employed 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 Oriented X3. No acute distress. ?ETOH odor Eyes: Pupils equal, round and reactive to light. ENT: Pharynx normal. Neck: Normal inspection. Neck supple. CVS: Normal heart rate and rhythm. Pulses normal. Respiratory: No respiratory distress. Breath sounds normal. Abdomen: Soft and nontender. Skin: Skin warm and dry. Normal skin color. Normal skin turgor. Extremities: No lower extremity edema. No calf ttp Neuro: Oriented X 3. No motor deficit. No sensory deficit. CN2-12 intact Course Course Course Narrative: Time: 14:.0 Date: 11/09/24 Provider: Louisa Thompson DO Physician observation ended at 1430. Patient to be admitted as inpatient to psychiatry. Medications Administered Generic Name Dose Route Start Last Admin Trade Name Freq PRN Reason Stop Dose Admin Acetaminophen 650 mg 11/09/24 15:07 11/10/24 21:54 Acetaminophen 325 Mg Tablet PO 650 mg Q6H PRN Administration Headache/Pain, Scale 1-10 Albuterol Sulfate 2 puff 11/09/24 11:35 11/12/24 09:24 Albuterol Sulfate 90 Mcg 8 Gm Inhaler INHALE 2 puff Q4H PRN Administration Shortness of Breath Amitriptyline HCl 50 mg 11/11/24 21:00 11/11/24 21:09 Amitriptyline Hcl 50 Mg Tablet PO 50 mg BEDTIME SHERLY Administration Aripiprazole 5 mg 11/10/24 16:35 11/12/24 08:41 Aripiprazole 5 Mg Tablet PO 5 mg DAILY SHERLY Administration Clotrimazole 1 appl 11/09/24 13:23 11/09/24 21:22 Clotrimazole 1 % Cream 15 Gm Tube TOPICAL 1 appl DAILY PRN Administration Itching Dicyclomine HCl 10 mg 11/09/24 17:00 11/12/24 08:41 Dicyclomine Hcl 10 Mg Capsule PO 10 mg TIDWM SHERLY Administration Hydrocortisone 1 appl 11/09/24 11:35 11/10/24 18:17 Hydrocortisone 2.5 % Rectal Cr 30 Gm Tube RI 1 appl DAILY PRN Administration Hemorrhoids Loratadine 10 mg 11/09/24 12:00 11/12/24 08:41 Loratadine 10 Mg Tablet PO 10 mg DAILY SHERLY Administration Nicotine 21 mg 11/09/24 16:05 11/12/24 08:40 Nicotine 21 Mg Patch.Td24 TRANSDERMA 21 mg DAILY SHERLY Administration Omeprazole 20 mg 11/09/24 09:00 11/12/24 08:41 Omeprazole 20 Mg Capsule.Dr PO 20 mg DAILY SHERLY Administration Polyethylene Glycol 17 gm 11/10/24 09:00 11/12/24 08:47 Polyethylene Glycol 3350 17 Gm Powd.Pack PO Not Given DAILY SHERLY Senna 8.6 mg 11/09/24 21:00 11/11/24 21:09 Sennosides 8.6 Mg Tablet PO 8.6 mg BEDTIME SHERLY Administration Thiamine HCl 100 mg 11/10/24 09:00 11/12/24 08:41 Thiamine Hcl 100 Mg Tablet PO 100 mg DAILY SHERLY Administration Trazodone HCl 50 mg 11/09/24 15:07 11/11/24 21:51 Trazodone Hcl 50 Mg Tablet PO 50 mg BEDTIME MRX1 PRN Administration Insomnia Triamcinolone Acetonide 1 appl 11/09/24 21:00 11/12/24 09:44 Triamcinolone Acet 0.1 % Oint 15 Gm Tube TOPICAL Not Given BID SHERLY Discontinued Medications Generic Name Dose Route Start Last Admin Trade Name Freq PRN Reason Stop Dose Admin Amitriptyline HCl 25 mg 11/09/24 21:00 11/10/24 21:07 Amitriptyline Hcl 25 Mg Tablet PO 25 mg BEDTIME SHERLY Administration Clotrimazole 1 appl 11/09/24 12:00 11/09/24 13:42 Clotrimazole 1 % Cream 15 Gm Tube TOPICAL Not Given DAILY SHERLY Dicyclomine HCl 10 mg 11/09/24 09:00 11/09/24 16:45 Dicyclomine Hcl 10 Mg Capsule PO Not Given TID SHERLY Medical Decision Making Medical Decision Making MDM Narrative: 24 yo male with PMH Of IBS, alcohol use disorder, migraine, anxiety, asthma, GERD here with c/o SI and depression. He has no access to firearms. At this time will obtain labs, refer to CARE team and start on CIWA protocol. He denies any medical complaints Care team evaluated the patient, recommendations: Inpatient level of care. Patient is still suicidal, hopeless, likely diagnosis anxiety and depression Differential Diagnosis Differential Diagnoses: The differential diagnosis associated with the presentation includes depressed, SI Admission/Observation Consideration of admission/observation: Escalation of care including admission/observation considered observation started at 1001pm pending CARE team Consult Healthcare Provider Management of the patient was discussed with: Behavioral Health Provider Lab Data [facility] Lab Attestation statement: I reviewed the patient's lab results. 11/08/24 21:03 11/10/24 07:52 Labs: Lab Results 11/08/24 11/09/24 Range/Units 21:03 09:17 WBC 6.9 (4.8-10.8) X10*3/uL RBC 5.01 (4.60-5.80) X10*6/uL Hgb 13.9 L (14.0-18.0) g/dl Hct 41.3 L (42.0-52.0) % MCV 82.4 (80.0-98.0) fL MCH 27.7 (27.0-33.0) pg MCHC 33.7 (31.0-36.0) g/dl RDW 14.2 (11.0-16.0) % Plt Count 308 (160-400) X10*3/uL MPV 9.3 L (9.4-12.4) fL Immature Gran % (Auto) 0.4 (0.0-0.4) % Neut % (Auto) 52.1 (45-73) % Lymph % (Auto) 36.2 (20-40) % [place] % (Auto) 8.9 (2-11) % Eos % (Auto) 1.7 (0-4) % Baso % (Auto) 0.7 (0-2) % Lymph # (Auto) 2.5 (1.2-4.9) X10*3/uL [place] # (Auto) 0.6 (0.1-1.2) X10*3/uL Eos # (Auto) 0.1 (0.0-0.4) X10*3/uL Baso # (Auto) 0.1 (0.0-0.2) X10*3/uL Abs Immat Gran (auto) 0.03 (0.00-0.03) X10*3/uL Absolute Neuts (auto) 3.6 (2.0-8.3) x10*3/uL Absolute Nucleated RBC 0.000 (0.0-0.012) X10*3/uL Nucleated RBC % (auto) 0.0 (0.0-0.2) /100WBC Sodium 143 (135-145) mmol/L Potassium 3.8 (3.3-5.1) mmol/L Chloride 107 (96-108) mmol/L Carbon Dioxide 24 (22-29) mmol/L Anion Gap 16 (12-20) BUN 12 (9-16) mg/dL Creatinine 1.09 (0.5-1.4) mg/dL Estim Creat Clear Calc 95.9 Estimated GFR > 60 Random Glucose 92 (60-115) mg/dL Calcium 8.9 D (8.4-10.2) mg/dL Total Bilirubin 0.5 (0.0-1.0) mg/dL AST 28 (5-37) U/L ALT 29 (0-40) U/L Alkaline Phosphatase 92 (39-117) U/L Total Protein 7.7 (6.5-8.0) g/dL Albumin 4.8 (3.5-5.0) g/dL Urine Color Cancelled Urine Appearance Cancelled Urine pH Cancelled Ur Specific [place] Cancelled Urine Protein Cancelled Urine Glucose (UA) Cancelled Urine Ketones Cancelled Urine Blood Cancelled Urine Nitrite Cancelled Ur Leukocyte Esterase Cancelled Urine Opiates Screen Not Detected (Not Detect) Ur Buprenorphine Scrn Not Detected (Not Detect) ng/mL Ur Oxycodone Screen Not Detected (Not Detect) ng/mL Urine Methadone Screen Not Detected (Not Detect) ng/mL Urine Fentanyl Screen Not Detected (Not Detect) Ur Barbiturates Screen Not Detected (Not Detect) Ur Phencyclidine Scrn Not Detected (Not Detect) Ur Amphetamines Screen Not Detected (Not Detect) U Benzodiazepines Scrn Not Detected (Not Detect) Urine Cocaine Screen Not Detected (Not Detect) U Marijuana (THC) Screen Not Detected (Not Detect) Ethyl Alcohol 160 mg/dL Independent Historian Clinical information obtained from an independent historian. History obtained from or confirmed by: EMS External Record Review External record reviewed: Inpatient record and Outpatient record Critical Care Time Critical Care Time Critical Care Time: Yes Total Critical Care Time: 35 Attestation: I have personally provided critical care time. Time includes review of lab data, radiology results, discussion with consultants, and monitoring for potential decompensation. Intervention performed as documented. Discharge Plan Discharge Clinical Impression: Alcohol use disorder, Suicidal ideation Patient Disposition: Admitted As Inpatient Interventions: Admission Worksheet (ED) Last Done: 11/09/24 14:39 Discharge Date/Time: 11/09/24 14:42
--- NOTE | 2024-11-09 | ECG_ITS ---
Test Reason : check prolong qt Blood Pressure : */* mmHG Vent. Rate : 67 BPM Atrial Rate : 67 BPM P-R Int : 136 ms QRS Dur : 96 ms QT Int : 352 ms P-R-T Axes : 25 41 31 degrees QTcB Int : 371 ms Normal sinus rhythm with sinus arrhythmia Early repolarization Normal ECG When compared with ECG of 05-Sep-2024 18:35, Vent. rate has decreased by 46 bpm Referred By: Generic ED Physician Electronically Signed By: FATUMA PEREA MD
--- NOTE | 2024-11-09 03:06 | PC.NURSE ---
This expert medical writer assumed care of this Pt at this time. Pt appears to be sleeping at this time. Equal, nonlabored respiration, no apparent distress.
[2024-11-09 03:19] VITALS: BP 117/61; PULSE 85; RESP 14; TEMP 36.8; O2SAT 96
--- NOTE | 2024-11-09 06:32 | PC.NURSE ---
med rec complete using last filled scripts by pharmacy.
--- NOTE | 2024-11-09 09:16 | PC.NURSE ---
Report received from Jared Wyman RN. Moved from ED [facility] to [facility]. Ambulates with steady gait independently. In behavioral control at this time. Bedsearch. Awaiting urine specimen to be collected and medication reconciliation. Care ongoing by this RN.
--- NOTE | 2024-11-09 09:27 | PC.NURSE ---
Breakfast tray not received this AM per patient and Ben (betting clerks/sitter). Called kitchen. Kitchen staff to bring regular safety tray as ordered to [facility]. Patient wishes to take scheduled morning medications upon arrival of his food tray. Care ongoing by this RN.
--- NOTE | 2024-11-09 11:53 | PHA.MEDREC ---
Addendum entered by Mackenzie Alcaraz RPh 11/09/24 11:55: Reviewed by [facility] Original Note: Pharmacy Consult ? Medication Reconciliation Pharmacy has reviewed the medication reconciliation done by nursing. Claims match med list. Disulfiram 250 mg was added last filled 09/12/24 for 90 days.
--- NOTE | 2024-11-09 12:52 | PC.NURSE ---
Patient refused Claritin as ordered today. Also refused Clotrimazole (substituted for Ketoconozole cream) at this time stating I only use that when I shower, I don't want to do that right now, but I'll put on that cream later . Pharmacy updated to change to Daily PRN administration instead of scheduled.
--- NOTE | 2024-11-09 14:27 | PC.NURSE ---
RN to RN report given to Rae. Patient to be admitted to [facility] at [facility]. Awaiting staff to escort for admission.
[2024-11-09 14:53] VITALS: BP 116/73; PULSE 59; RESP 20; TEMP 36.4; O2SAT 98
[2024-11-09] MEDS: Albuterol Sulfate 90 MCG 8 GM INHALER 2 PUFF INHALE ×2 (15:08→20:15)
[2024-11-09 15:37] VITALS: BMI 29.6
[2024-11-09] MEDS: Nicotine 21 MG PATCH.TD24 TRANSDERMA (17:10)
--- NOTE | 2024-11-09 17:24 | PC.ADMIT ---
Jaya was admitted to on a CV for treatment of unspecified depressive disorder and alcohol use disorder from [facility] on 11/09/24. He reports prior to admission, he recently lost FMLA so he is no longer receiving any income and is not working. He also reports that his younger cousin recently bought a house which made him feel behind in life and like he wasn't doing anything right. He reports he has been drinking a large amount of alcohol, without any specific pattern or number of drinks, daily and this has made him lose any money he had left. He reports yesterday, he was drunk at home after helping his cousin and was feeling overwhelmed and angry. He reports his mother was apologizing and seemed afraid of her, which made him throw a chair and walk out of the house. He walked down his street and found his neighbor, and asked him to call an ambulance for him. He also reports having 2 cats at home, one of which has cancer, and he has missed an appointment for the cat to get treatment, which has caused an increase of stress. He reports he feels life is pointless since he can no longer work due to his multiple health issues. He reports his mood as depressed and his affect is congruent with his mood. His though process is clear and linear, he does not appear to have any perceptual disturbances. He reports SI at baseline but has no intent while in the hospital. He denies HI/AVH and reports being able to come to staff if these occur. He denies sleep or appetite disturbance. He reports a history of eczema, asthma, and gut issues. He denies substance use other than alcohol. His tox screen was negative and his BAL was 160. He reports last alcoholic drink was 11/08/24 in the evening but unable to recall specific time. He denies any withdrawal symptoms at this time. His skin check was unremarkable. He was placed on 15 minute checks for safety.
[2024-11-09 20:00] VITALS: BP 131/63; PULSE 75; RESP 16; TEMP 36.7; O2SAT 98
[2024-11-09] MEDS: Clotrimazole 1 % Cream 15 GM TUBE 1 APPL TOPICAL (21:22)
[2024-11-09] MEDS: Triamcinolone Acet 0.1 % Oint 15 GM TUBE 1 APPL TOPICAL (21:23)
[2024-11-10 07:10] VITALS: BP 118/56; PULSE 60; RESP 18; TEMP 36.7; O2SAT 97
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
[2024-11-10 08:23] LABS: Hemoglobin A1C 134.6542 umol/L; Total Hemoglobin (HGBA1C) 3738.3189 umol/L
[2024-11-10 08:32] LABS: Alanine Aminotransferase 31 U/L (0-40); Albumin Level 4.8 g/dL (3.5-5.0); Alkaline Phosphatase 76 U/L (39-117); Anion Gap 13 (12-20); Aspartate Amino Transferase 27 U/L (5-37); Blood Urea Nitrogen 18 mg/dL (9-16); Calcium 9.7 mg/dL (8.4-10.2); Carbon Dioxide 27 mmol/L (22-29); Chloride 104 mmol/L (96-108); Cholesterol 198 mg/dL (<200); Creatinine Clr Calc Pharmacy 112.7; Estimated Glomerular Filt Rate > 60; HDL Cholesterol 54 mg/dL (>40); Potassium 4.0 mmol/L (3.3-5.1); Sodium 140 mmol/L (135-145); Total Protein 7.4 g/dL (6.5-8.0); Triglycerides 137 mg/dL (<150)
[2024-11-10] MEDS: Nicotine 21 MG PATCH.TD24 TRANSDERMA (08:47)
[2024-11-10] MEDS: Albuterol Sulfate 90 MCG 8 GM INHALER 2 PUFF INHALE (09:02)
--- NOTE | 2024-11-10 14:48 | MHC.RECOVRN ---
TW attempted to meet with pt twice today after consult placed to Addiction Medicine for alcohol use. During both attempts pt was with visitors. TW will attempt to meet with pt Tuesday morning (11/11/24) to offer support/resources pertaining to alcohol use.
[2024-11-10] MEDS: Hydrocortisone 2.5 % Rectal Cr 30 GM TUBE 1 APPL PR (18:17)
[2024-11-10 20:00] VITALS: BP 139/74; PULSE 70; RESP 16; TEMP 37.7; O2SAT 99
[2024-11-10] MEDS: Triamcinolone Acet 0.1 % Oint 15 GM TUBE 1 APPL TOPICAL (21:08)
[2024-11-11 07:10] VITALS: BP 122/58; PULSE 60; RESP 14; TEMP 36.8; O2SAT 96
[2024-11-11] MEDS: Albuterol Sulfate 90 MCG 8 GM INHALER 2 PUFF INHALE (08:57)
--- NOTE | 2024-11-11 10:25 | P.PNPSI_ITS ---
Subjective Subjective Date of Service: 11/11/24 Reason For Visit: crisis Interim History: No management issues. Attending to ADLs. Sleep poor due to environment and reports can normally sleep within an hour at home. That being said discussed increasing amitriptyline for mood/sleep. Attending groups. Remains hoepful for rehab/substacne proramming. No SI. Psychosis minimal. Feels safe. Medication Compliance: Yes Side effects from medications: No Attending Groups: Intermittent Review of Systems Acute medical concerns: No Review of Systems Review of Systems unremarkable Mental Status Exam Mental Status Exam Narrative: pleasant. Engaged. Casually dressed and presented. Organized. No evidence of withdrawal. Endorses depression. Affect congruent. No SI. Wants help. No HI. No agitation. No delusions. Little/no visual hallucinations of shadows. No AH. Insight and judgment fair Diagnostics Vital Signs (24Hr): Vital Signs - 24 hr 11/10/24 20:00 11/11/24 07:10 Temperature 100 F 98.2 F Pulse Rate 70 60 Respiratory Rate 16 14 Blood Pressure 139/74 122/58 L Pulse Oximetry 99 96 Oxygen Delivery Method Room Air Room Air BMI result Body Mass Index 29.6 Labs 11/08/24 21:03 11/10/24 07:52 Labs: Laboratory Results - last 48 hr 11/09/24 11/10/24 09:17 07:52 Sodium 140 Potassium 4.0 Chloride 104 Carbon Dioxide 27 Anion Gap 13 BUN 18 H Creatinine 1.04 Estim Creat Clear Calc 112.7 Estimated GFR > 60 Random Glucose 97 Estimat Average Glucose 108 Hemoglobin A1c % 5.4 Calcium 9.7 D Total Bilirubin 0.4 AST 27 ALT 31 Alkaline Phosphatase 76 Total Protein 7.4 Albumin 4.8 Triglycerides 137 Cholesterol 198 LDL Cholesterol, Calc 117 H HDL Cholesterol 54 Urine Color Cancelled Urine Appearance Cancelled Urine pH Cancelled Ur Specific [place] Cancelled Urine Protein Cancelled Urine Glucose (UA) Cancelled Urine Ketones Cancelled Urine Blood Cancelled Urine Nitrite Cancelled Ur Leukocyte Esterase Cancelled Medications Medications Current Medications Acetaminophen (Acetaminophen 325 Mg Tablet) 650 mg PO Q6H PRN PRN Reason: Headache/Pain, Scale 1-10 Last Admin: 11/10/24 21:54 Dose: 650 mg Al Hydroxide/Mg Hydroxide (Magnesium Hydrox/Alum Hydrox 30 Ml Oral.Susp) 30 ml PO Q6H PRN PRN Reason: Heartburn/Nausea Albuterol Sulfate (Albuterol Sulfate 90 Mcg 8 Gm Inhaler) 2 puff INHALE Q4H PRN PRN Reason: Shortness of Breath Last Admin: 11/11/24 08:57 Dose: 2 puff Amitriptyline HCl (Amitriptyline Hcl 25 Mg Tablet) 25 mg PO BEDTIME [facility] Last Admin: 11/10/24 21:07 Dose: 25 mg Aripiprazole (Aripiprazole 5 Mg Tablet) 5 mg PO DAILY [facility] Last Admin: 11/11/24 08:48 Dose: 5 mg Artificial Tears (Artificial Tears 15 Ml Drops) 2 drop EYE-BOTH Q4H PRN PRN Reason: Dry Eyes Clotrimazole (Clotrimazole 1 % Cream 15 Gm Tube) 1 appl TOPICAL DAILY PRN PRN Reason: Itching Last Admin: 11/09/24 21:22 Dose: 1 appl Dicyclomine HCl (Dicyclomine Hcl 10 Mg Capsule) 10 mg PO TIDWM [facility] Last Admin: 11/11/24 08:48 Dose: 10 mg Hydrocortisone (Hydrocortisone 2.5 % Rectal Cr 30 Gm Tube) 1 appl [place] DAILY PRN PRN Reason: Hemorrhoids Last Admin: 11/10/24 18:17 Dose: 1 appl Hydroxyzine HCl (Hydroxyzine Hcl 25 Mg Tablet) 25 mg PO Q6H PRN PRN Reason: mild anxiety Loratadine (Loratadine 10 Mg Tablet) 10 mg PO DAILY [facility] Last Admin: 11/11/24 08:48 Dose: 10 mg Lorazepam (Lorazepam 1 Mg Tablet) 1 mg PO Q2H PRN PRN Reason: CIWA 8-11 Lorazepam (Lorazepam 1 Mg Tablet) 2 mg PO Q2H PRN PRN Reason: CIWA 12-15 Lorazepam (Lorazepam 1 Mg Tablet) 3 mg PO Q2H PRN PRN Reason: CIWA > 15, and call Magnesium Hydroxide (Milk Of Magnesia 30 Ml Oral.Susp) 30 ml PO DAILY PRN PRN Reason: Constipation Nicotine (Nicotine 21 Mg Patch.Td24) 21 mg TRANSDERMA DAILY [facility] Last Admin: 11/10/24 08:47 Dose: 21 mg Nicotine Polacrilex (Nicotine Polacrilex 2 Mg Gum) 4 mg BUCCAL Q2H PRN PRN Reason: Nicotine Cravings Omeprazole (Omeprazole 20 Mg Capsule.Dr) 20 mg PO DAILY [facility] Last Admin: 11/11/24 08:48 Dose: 20 mg Ondansetron HCl (Ondansetron Odt 4 Mg Tab.Rapdis) 4 mg TRANSLINGU Q6H PRN PRN Reason: nausea/vomiting Polyethylene Glycol (Polyethylene Glycol 3350 17 Gm Powd.Pack) 17 gm PO DAILY [facility] Last Admin: 11/11/24 08:59 Dose: Not Given Senna (Sennosides 8.6 Mg Tablet) 8.6 mg PO BEDTIME [facility] Last Admin: 11/10/24 21:07 Dose: 8.6 mg Thiamine HCl (Thiamine Hcl 100 Mg Tablet) 100 mg PO DAILY [facility] Last Admin: 11/11/24 08:48 Dose: 100 mg Trazodone HCl (Trazodone Hcl 50 Mg Tablet) 50 mg PO BEDTIME MRX1 PRN PRN Reason: Insomnia Last Admin: 11/10/24 21:53 Dose: 50 mg Triamcinolone Acetonide (Triamcinolone Acet 0.1 % Oint 15 Gm Tube) 1 appl TOPICAL BID [facility] Last Admin: 11/11/24 09:00 Dose: Not Given Allergies Allergies Allergy/AdvReac Type Severity Reaction Status Date / Time banana Allergy Severe Anaphylaxis Verified 11/08/24 20:45 aspirin (ASA) Allergy Intermediate Swelling Verified 11/08/24 20:45 avocado Allergy Intermediate Swelling Verified 11/08/24 20:45 gluten Allergy Intermediate Abdominal Verified 11/08/24 20:45 Pain ibuprofen (IBUPROFEN) Allergy Intermediate ABD PAIN Verified 11/08/24 20:45 AND REFLUX lactose Allergy Intermediate Abdominal Verified 11/08/24 20:45 Pain house dust Allergy Unknown Unknown Verified 11/08/24 20:45 venlafaxine AdvReac Mild vomiting, Verified 11/08/24 20:45 disorintation seasonal Allergy Unknown unknown Uncoded 11/08/24 20:45 Assessment & Plan Assessment & Plan (1) Alcohol use disorder: Status: Acute Code(s): F10.90 - Alcohol use, unspecified, uncomplicated (2) Major depress, sev w/ psych: Status: Acute Code(s): F32.3 - Major depressive disorder, single episode, severe with psychotic features Plan Presents with major depression and comorbid psychosis and alcohol use disorder. Eager for substance use services as reports not engaging in rehab previously but wants to this time. Will start Abilify for mood disorder and psychotic symptoms. Hold off Wellbutrin given unclear seizure history. CIWA. 11/11: increass amitriptyline to 50mg for mood/sleep. Reason for continued inpatient stay Substantial Risk for: harm to self and inability to function Time Spent With Patient Time: Total time managing care of this patient today ____ minutes.
[2024-11-11] MEDS: Nicotine 21 MG PATCH.TD24 TRANSDERMA (12:02)
--- NOTE | 2024-11-11 12:07 | MHC.RECOVRN ---
Patient had a positive screen for unhealthy alcohol use on admission, subsequently, met with this staff writer in 308 to discuss alcohol use and recovery supports and options TW met with patient to discuss current alcohol use and concerns related to increased risk of alcohol related problems. On approach pt is laying in bed, eyes closed, in no apparent distress. Respirations are even and unlabored. Pt wakes to name being called and agrees to meeting with TW. Pt denies pain or withdrawal symptoms at this time however does report seeing ?shadows and maybe a whisper, I?m not sure?. Pt reports ?feeling a bit tired?. ? Patient states he is unsure how much alcohol he is consuming daily but reports, ?it?s alot? . He reports his family believes he is sober and that he hides his drinking so he doesn't disappoint them. He denies use of other substances. Discussed how alcohol use has impacted health, including negative impact on mental health and overall physical well being. Pt reports a desire to decrease drinking at this time. Discussed risk and reduction strategies including drinking below the recommended limit, importance of nutrition and vitamin supplementation and drinking water between beverages containing alcohol.? Provided pt with written resources including information on inpatient and outpatient treatment, KARLA, harm reduction and recovery coaching.? Patient reports he is already connected at [facility] and has tried Naltrexone and disulfiram in the past with poor effect. He reports ongoing GI issues exacerbated by use of KARLA.? Pt also states [facility] told him they will help refer him to a power and recovery superintendent. ? Pt declines intervention, KARLA, or outpatient appt for treatment related to AUD at this time.? Pt was provided with TW?s contact information if questions or concerns arise. Pt denies further questions or concerns at this time.?
[2024-11-11 19:25] VITALS: BP 126/83; PULSE 98; RESP 16; TEMP 37.2; O2SAT 99
[2024-11-12 07:39] VITALS: BP 114/57; PULSE 96; RESP 14; TEMP 36.6; O2SAT 96
[2024-11-12] MEDS: Nicotine 21 MG PATCH.TD24 TRANSDERMA (08:40)
[2024-11-12] MEDS: Albuterol Sulfate 90 MCG 8 GM INHALER 2 PUFF INHALE ×2 (09:24→23:08)
--- NOTE | 2024-11-12 09:58 | P.PNPSI_ITS ---
Subjective Subjective Date of Service: 11/12/24 Reason For Visit: crisis Subjective Notes: 3 Day Interim History: Active on unit. attending groups. Patient reports feeling a little down because I'm disappointed that I have to come to the hospital. But I'm feeling better . He reports sleeping well. showered. Patient reports he has been reading and writing for coping. denies SI/HI/VH/AH. 3 day notice up on 11/14/24. Continue current tx plan. Medication Compliance: Yes Side effects from medications: No Attending Groups: Yes Mental Status Exam Mental Status Exam Narrative: Pt is alert and oriented; behavior is cooperative and calm; dressed in casual attire; mood is described as disappointed but getting better ; eye contact appropriate; Speech is normal rate, volume and not pressured; thought process is organized; Thought content is on tx; denies SI/HI/VH/AH. Diagnostics Vital Signs (24Hr): Vital Signs - 24 hr 11/11/24 19:25 11/12/24 07:39 Temperature 99.0 F 97.8 F Pulse Rate 98 96 Respiratory Rate 16 14 Blood Pressure 126/83 114/57 L Pulse Oximetry 99 96 Oxygen Delivery Method Room Air Room Air BMI result Body Mass Index 29.6 Labs 11/08/24 21:03 11/10/24 07:52 Medications Medications Current Medications Acetaminophen (Acetaminophen 325 Mg Tablet) 650 mg PO Q6H PRN PRN Reason: Headache/Pain, Scale 1-10 Last Admin: 11/10/24 21:54 Dose: 650 mg Al Hydroxide/Mg Hydroxide (Magnesium Hydrox/Alum Hydrox 30 Ml Oral.Susp) 30 ml PO Q6H PRN PRN Reason: Heartburn/Nausea Albuterol Sulfate (Albuterol Sulfate 90 Mcg 8 Gm Inhaler) 2 puff INHALE Q4H PRN PRN Reason: Shortness of Breath Last Admin: 11/12/24 09:24 Dose: 2 puff Amitriptyline HCl (Amitriptyline Hcl 50 Mg Tablet) 50 mg PO BEDTIME SHERLY Last Admin: 11/11/24 21:09 Dose: 50 mg Aripiprazole (Aripiprazole 5 Mg Tablet) 5 mg PO DAILY SHERLY Last Admin: 11/12/24 08:41 Dose: 5 mg Artificial Tears (Artificial Tears 15 Ml Drops) 2 drop EYE-BOTH Q4H PRN PRN Reason: Dry Eyes Clotrimazole (Clotrimazole 1 % Cream 15 Gm Tube) 1 appl TOPICAL DAILY PRN PRN Reason: Itching Last Admin: 11/09/24 21:22 Dose: 1 appl Dicyclomine HCl (Dicyclomine Hcl 10 Mg Capsule) 10 mg PO TIDWM [facility] Last Admin: 11/12/24 08:41 Dose: 10 mg Hydrocortisone (Hydrocortisone 2.5 % Rectal Cr 30 Gm Tube) 1 appl [place] DAILY PRN PRN Reason: Hemorrhoids Last Admin: 11/10/24 18:17 Dose: 1 appl Hydroxyzine HCl (Hydroxyzine Hcl 25 Mg Tablet) 25 mg PO Q6H PRN PRN Reason: mild anxiety Loratadine (Loratadine 10 Mg Tablet) 10 mg PO DAILY [facility] Last Admin: 11/12/24 08:41 Dose: 10 mg Lorazepam (Lorazepam 1 Mg Tablet) 1 mg PO Q2H PRN PRN Reason: CIWA 8-11 Lorazepam (Lorazepam 1 Mg Tablet) 2 mg PO Q2H PRN PRN Reason: CIWA 12-15 Lorazepam (Lorazepam 1 Mg Tablet) 3 mg PO Q2H PRN PRN Reason: CIWA > 15, and call MD Magnesium Hydroxide (Milk Of Magnesia 30 Ml Oral.Susp) 30 ml PO DAILY PRN PRN Reason: Constipation Nicotine (Nicotine 21 Mg Patch.Td24) 21 mg TRANSDERMA DAILY [facility] Last Admin: 11/12/24 08:40 Dose: 21 mg Nicotine Polacrilex (Nicotine Polacrilex 2 Mg Gum) 4 mg BUCCAL Q2H PRN PRN Reason: Nicotine Cravings Omeprazole (Omeprazole 20 Mg Capsule.Dr) 20 mg PO DAILY [facility] Last Admin: 11/12/24 08:41 Dose: 20 mg Ondansetron HCl (Ondansetron Odt 4 Mg Tab.Rapdis) 4 mg TRANSLINGU Q6H PRN PRN Reason: nausea/vomiting Polyethylene Glycol (Polyethylene Glycol 3350 17 Gm Powd.Pack) 17 gm PO DAILY [facility] Last Admin: 11/12/24 08:47 Dose: Not Given Senna (Sennosides 8.6 Mg Tablet) 8.6 mg PO BEDTIME [facility] Last Admin: 11/11/24 21:09 Dose: 8.6 mg Thiamine HCl (Thiamine Hcl 100 Mg Tablet) 100 mg PO DAILY [facility] Last Admin: 11/12/24 08:41 Dose: 100 mg Trazodone HCl (Trazodone Hcl 50 Mg Tablet) 50 mg PO BEDTIME MRX1 PRN PRN Reason: Insomnia Last Admin: 11/11/24 21:51 Dose: 50 mg Triamcinolone Acetonide (Triamcinolone Acet 0.1 % Oint 15 Gm Tube) 1 appl TOPICAL BID [facility] Last Admin: 11/12/24 09:44 Dose: Not Given Allergies Allergies Allergy/AdvReac Type Severity Reaction Status Date / Time banana Allergy Severe Anaphylaxis Verified 11/08/24 20:45 aspirin (ASA) Allergy Intermediate Swelling Verified 11/08/24 20:45 avocado Allergy Intermediate Swelling Verified 11/08/24 20:45 gluten Allergy Intermediate Abdominal Verified 11/08/24 20:45 Pain ibuprofen (IBUPROFEN) Allergy Intermediate ABD PAIN Verified 11/08/24 20:45 AND REFLUX lactose Allergy Intermediate Abdominal Verified 11/08/24 20:45 Pain house dust Allergy Unknown Unknown Verified 11/08/24 20:45 venlafaxine AdvReac Mild vomiting, Verified 11/08/24 20:45 disorintation seasonal Allergy Unknown unknown Uncoded 11/08/24 20:45 Assessment & Plan Assessment & Plan (1) Major depress, sev w/ psych: Status: Acute Code(s): F32.3 - Major depressive disorder, single episode, severe with psychotic features (2) Alcohol use disorder: Status: Acute Code(s): F10.90 - Alcohol use, unspecified, uncomplicated Plan Presents with major depression and comorbid psychosis and alcohol use disorder. Eager for substance use services as reports not engaging in rehab previously but wants to this time. Will start Abilify for mood disorder and psychotic symptoms. Hold off Wellbutrin given unclear seizure history. CIWA. 11/11: increass amitriptyline to 50mg for mood/sleep. 11/12: Pt is alert and oriented; behavior is cooperative and calm; dressed in casual attire; mood is described as disappointed but getting better ; eye contact appropriate; Speech is normal rate, volume and not pressured; thought process is organized; Thought content is on tx; denies SI/HI/VH/AH. Patient educated on: diagnosis and medication risk/benefits Reason for continued inpatient stay Substantial Risk for: med/psych decompensation Time Spent With Patient Time: Total time managing care of this patient today _20___ minutes.
[2024-11-12 21:00] VITALS: BP 141/86; PULSE 101; RESP 101; TEMP 36.9; O2SAT 98
[2024-11-13 07:39] VITALS: BP 129/78; PULSE 80; RESP 20; TEMP 36.8; O2SAT 98
--- NOTE | 2024-11-13 09:30 | P.PNPSI_ITS ---
Subjective Subjective Date of Service: 11/13/24 Reason For Visit: crisis Subjective Notes: 3 Day Interim History: Patient reports feeling good and looking forward to returning home. denies SI/HI/VH/AH. Patient reports he plans on following up with his outpatient providers. 3 day notice up on 11/14/24. Medication Compliance: Yes Side effects from medications: No Attending Groups: Yes Mental Status Exam Mental Status Exam Narrative: Pt is alert and oriented; behavior is cooperative and calm; dressed in casual attire; mood is described as good ; eye contact appropriate; Speech is normal rate, volume and not pressured; thought process is organized; Thought content is on discharge; denies SI/HI/VH/AH. Diagnostics Vital Signs (24Hr): Vital Signs - 24 hr 11/12/24 21:00 11/13/24 07:39 Temperature 98.4 F 98.2 F Pulse Rate 101 H 80 Respiratory Rate 101 H 20 Blood Pressure 141/86 H 129/78 Pulse Oximetry 98 98 Oxygen Delivery Method Room Air Room Air BMI result Body Mass Index 29.6 Labs 11/08/24 21:03 11/10/24 07:52 Medications Medications Current Medications Acetaminophen (Acetaminophen 325 Mg Tablet) 650 mg PO Q6H PRN PRN Reason: Headache/Pain, Scale 1-10 Last Admin: 11/12/24 16:51 Dose: 650 mg Al Hydroxide/Mg Hydroxide (Magnesium Hydrox/Alum Hydrox 30 Ml Oral.Susp) 30 ml PO Q6H PRN PRN Reason: Heartburn/Nausea Albuterol Sulfate (Albuterol Sulfate 90 Mcg 8 Gm Inhaler) 2 puff INHALE Q4H PRN PRN Reason: Shortness of Breath Last Admin: 11/12/24 23:08 Dose: 2 puff Amitriptyline HCl (Amitriptyline Hcl 50 Mg Tablet) 50 mg PO BEDTIME SHERLY Last Admin: 11/12/24 21:54 Dose: 50 mg Aripiprazole (Aripiprazole 5 Mg Tablet) 5 mg PO DAILY SHERLY Last Admin: 11/13/24 08:27 Dose: 5 mg Artificial Tears (Artificial Tears 15 Ml Drops) 2 drop EYE-BOTH Q4H PRN PRN Reason: Dry Eyes Clotrimazole (Clotrimazole 1 % Cream 15 Gm Tube) 1 appl TOPICAL DAILY PRN PRN Reason: Itching Last Admin: 11/09/24 21:22 Dose: 1 appl Dicyclomine HCl (Dicyclomine Hcl 10 Mg Capsule) 10 mg PO TIDWM [facility] Last Admin: 11/13/24 08:28 Dose: 10 mg Hydrocortisone (Hydrocortisone 2.5 % Rectal Cr 30 Gm Tube) 1 appl [place] DAILY PRN PRN Reason: Hemorrhoids Last Admin: 11/10/24 18:17 Dose: 1 appl Hydroxyzine HCl (Hydroxyzine Hcl 25 Mg Tablet) 25 mg PO Q6H PRN PRN Reason: mild anxiety Loratadine (Loratadine 10 Mg Tablet) 10 mg PO DAILY [facility] Last Admin: 11/13/24 08:27 Dose: 10 mg Magnesium Hydroxide (Milk Of Magnesia 30 Ml Oral.Susp) 30 ml PO DAILY PRN PRN Reason: Constipation Nicotine (Nicotine 21 Mg Patch.Td24) 21 mg TRANSDERMA DAILY [facility] Last Admin: 11/12/24 08:40 Dose: 21 mg Nicotine Polacrilex (Nicotine Polacrilex 2 Mg Gum) 4 mg BUCCAL Q2H PRN PRN Reason: Nicotine Cravings Omeprazole (Omeprazole 20 Mg Capsule.Dr) 20 mg PO DAILY [facility] Last Admin: 11/13/24 08:27 Dose: 20 mg Ondansetron HCl (Ondansetron Odt 4 Mg Tab.Rapdis) 4 mg TRANSLINGU Q6H PRN PRN Reason: nausea/vomiting Last Admin: 11/12/24 17:36 Dose: 4 mg Polyethylene Glycol (Polyethylene Glycol 3350 17 Gm Powd.Pack) 17 gm PO DAILY [facility] Last Admin: 11/12/24 08:47 Dose: Not Given Senna (Sennosides 8.6 Mg Tablet) 8.6 mg PO BEDTIME [facility] Last Admin: 11/12/24 21:55 Dose: 8.6 mg Trazodone HCl (Trazodone Hcl 50 Mg Tablet) 50 mg PO BEDTIME MRX1 PRN PRN Reason: Insomnia Last Admin: 11/12/24 23:08 Dose: 50 mg Triamcinolone Acetonide (Triamcinolone Acet 0.1 % Oint 15 Gm Tube) 1 appl TOPICAL BID [facility] Last Admin: 11/12/24 22:07 Dose: Not Given Allergies Allergies Allergy/AdvReac Type Severity Reaction Status Date / Time banana Allergy Severe Anaphylaxis Verified 11/08/24 20:45 aspirin (ASA) Allergy Intermediate Swelling Verified 11/08/24 20:45 avocado Allergy Intermediate Swelling Verified 11/08/24 20:45 gluten Allergy Intermediate Abdominal Verified 11/08/24 20:45 Pain ibuprofen (IBUPROFEN) Allergy Intermediate ABD PAIN Verified 11/08/24 20:45 AND REFLUX lactose Allergy Intermediate Abdominal Verified 11/08/24 20:45 Pain house dust Allergy Unknown Unknown Verified 11/08/24 20:45 venlafaxine AdvReac Mild vomiting, Verified 11/08/24 20:45 disorintation seasonal Allergy Unknown unknown Uncoded 11/08/24 20:45 Assessment & Plan Assessment & Plan (1) Major depress, sev w/ psych: Status: Acute Code(s): F32.3 - Major depressive disorder, single episode, severe with psychotic features (2) Alcohol use disorder: Status: Acute Code(s): F10.90 - Alcohol use, unspecified, uncomplicated Plan Presents with major depression and comorbid psychosis and alcohol use disorder. Eager for substance use services as reports not engaging in rehab previously but wants to this time. Will start Abilify for mood disorder and psychotic symptoms. Hold off Wellbutrin given unclear seizure history. CIWA. 11/11: increass amitriptyline to 50mg for mood/sleep. 11/12: Pt is alert and oriented; behavior is cooperative and calm; dressed in casual attire; mood is described as disappointed but getting better ; eye contact appropriate; Speech is normal rate, volume and not pressured; thought process is organized; Thought content is on tx; denies SI/HI/VH/AH. 11/13: Patient reports feeling good and looking forward to returning home. denies SI/HI/VH/AH. Patient reports he plans on following up with his outpatient providers. 3 day notice up on 11/14/24. Patient educated on: diagnosis and medication risk/benefits Reason for continued inpatient stay Substantial Risk for: stable for discharge Time Spent With Patient Time: Total time managing care of this patient today _20___ minutes.
[2024-11-13] MEDS: Triamcinolone Acet 0.1 % Oint 15 GM TUBE 1 APPL TOPICAL (10:00)
[2024-11-13] MEDS: Hydrocortisone 2.5 % Rectal Cr 30 GM TUBE 1 APPL PR (10:00)
[2024-11-13] MEDS: Clotrimazole 1 % Cream 15 GM TUBE 1 APPL TOPICAL (10:01)
[2024-11-13] MEDS: Albuterol Sulfate 90 MCG 8 GM INHALER 2 PUFF INHALE (10:31)
[2024-11-13] MEDS: Magnesium Hydrox/Alum Hydrox 30 ML ORAL.SUSP PO (10:47)
[2024-11-13] MEDS: Milk of Magnesia 30 ML ORAL.SUSP PO (12:27)
[2024-11-13] MEDS: Nicotine 21 MG PATCH.TD24 TRANSDERMA (15:36)
[2024-11-13 20:00] VITALS: BP 152/84; PULSE 115; RESP 16; TEMP 37.3; O2SAT 96
[2024-11-14] MEDS: Albuterol Sulfate 90 MCG 8 GM INHALER 2 PUFF INHALE (07:13)
[2024-11-14 07:50] VITALS: BP 126/76; PULSE 116; RESP 18; TEMP 36.8; O2SAT 98
--- NOTE | 2024-11-14 08:53 | P.DS_ITS ---
DS: Providers Provider Date of Service: 11/14/24 Date of admission: 11/09/24 13:09 Date of discharge: 11/14/24 Primary care physician: Eduardo Marquez MD Attending physician on admission: Vick Bernal Consults: 11/09/24 16:59 Addiction Medicine Provider Routine Consulting Provider: Addiction Covering Reason for consultation: Positive AUDIT-C Attending physician on discharge: Eduar Cobos Discharging clinician: Cynthia English DS: Diagnosis Discharge Diagnosis (1) Major depress, sev w/ psych: Status: Acute (2) Alcohol use disorder: Status: Acute DS: Medications Discharge Medications Home Medications: Home Medications ?Medication ?Instructions ?Recorded ?Confirmed loratadine 10 mg tablet (Allergy 10 mg PO DAILY 11/09/24 Relief (loratadine)) triamcinolone acetonide 0.1 % 1 appl topical DAILY 05/1511/09/24 topical cream disulfiram 250 mg tablet 250 mg PO DAILY 11/09/24 hydrocortisone 2.5 % topical cream 1 appl NE USEASDIRE CTD PRN 11/09/24 11/09/24 with perineal applicator Hemorrhoids inhalational spacing device 11/09/24 11/09/24 ([facility] spacer) ketoconazole 2 % topical cream 1 appl topical DAILY 11/09/24 ondansetron 4 mg disintegrating 4 mg PO Q6-8H PRN naus ea/vomiting 11/09/24 11/09/24 tablet sennosides 8.6 mg tablet (senna) 8.6 mg PO DAILY PRN C onstipation 11/09/24 11/09/24 Previous Rx's ?Medication ?Instructions ?Recorded esomeprazole magnesium 20 mg 20 mg PO DAILY #90 caps 0 09/19/24 capsule,delayed release dicyclomine 10 mg capsule 10 mg PO TID 90 days #270 ca ps 10/02/24 polyethylene glycol 3350 17 17 g PO DAILY constipation 30 days 10/11/24 gram/dose oral powder (Miralax) #510 grams albuterol sulfate 90 mcg/actuation 2 puff inhalation Q 4-6H PRN 11/05/24 aerosol inhaler (Ventolin HFA) Shortness Of Breath #1 ea acamprosate 333 mg tablet,delayed 666 mg (2 x 333 mg) PO TID 30 days 11/08/24 release #180 tabs amitriptyline 50 mg tablet 50 mg PO BEDTIME 30 days #3 0 tabs 11/13/24 aripiprazole 5 mg tablet (Abilify) 5 mg PO DAILY 30 da ys #30 tabs 11/13/24 Mental Status Exam Mental Status Exam Narrative: Pt is alert and oriented; behavior is cooperative and calm; dressed in casual attire; mood is described as good ; eye contact appropriate; Speech is normal rate, volume and not pressured; thought process is organized; Thought content is on discharge; denies SI/HI/VH/AH. Data Data Completed and Pending Completed studies during hospitalization [Text1]: 11/08/24 11/09/24 11/10/24 21:03 09:17 07:52 WBC 6.9 RBC 5.01 Hgb 13.9 L Hct 41.3 L MCV 82.4 MCH 27.7 MCHC 33.7 RDW 14.2 Plt Count 308 MPV 9.3 L Immature Gran % (Auto) 0.4 Neut % (Auto) 52.1 Lymph % (Auto) 36.2 [place] % (Auto) 8.9 Eos % (Auto) 1.7 Baso % (Auto) 0.7 Lymph # (Auto) 2.5 [place] # (Auto) 0.6 Eos # (Auto) 0.1 Baso # (Auto) 0.1 Abs Immat Gran (auto) 0.03 Absolute Neuts (auto) 3.6 Absolute Nucleated RBC 0.000 Nucleated RBC % (auto) 0.0 Sodium 143 140 Potassium 3.8 4.0 Chloride 107 104 Carbon Dioxide 24 27 Anion Gap 16 13 BUN 12 18 H Creatinine 1.09 1.04 Estim Creat Clear Calc 95.9 112.7 Estimated GFR > 60 > 60 Random Glucose 92 97 Estimat Average Glucose 108 Hemoglobin A1c % 5.4 Calcium 8.9 D 9.7 D Total Bilirubin 0.5 0.4 AST 28 27 ALT 29 31 Alkaline Phosphatase 92 76 Total Protein 7.7 7.4 Albumin 4.8 4.8 Triglycerides 137 Cholesterol 198 LDL Cholesterol, Calc 117 H HDL Cholesterol 54 Urine Color Cancelled Urine Appearance Cancelled Urine pH Cancelled Ur Specific [place] Cancelled Urine Protein Cancelled Urine Glucose (UA) Cancelled Urine Ketones Cancelled Urine Blood Cancelled Urine Nitrite Cancelled Ur Leukocyte Esterase Cancelled Urine Opiates Screen Not Detected Ur Buprenorphine Scrn Not Detected Ur Oxycodone Screen Not Detected Urine Methadone Screen Not Detected Urine Fentanyl Screen Not Detected Ur Barbiturates Screen Not Detected Ur Phencyclidine Scrn Not Detected Ur Amphetamines Screen Not Detected U Benzodiazepines Scrn Not Detected Urine Cocaine Screen Not Detected U Marijuana (THC) Screen Not Detected Ethyl Alcohol 160 DS: Summary Hospital Course Hospital Course: 24 yo male with PMH Of IBS, alcohol use disorder, migraine, anxiety, asthma, GERD here with c/o ETOH use and states he wants to kill himself. He plans to buy a firearm in 6 years and do it. He states he is very depressed. He has no access to firearms at this time Patient reports main focus is sobriety and mood. Reports drinking heavily daily with longest period of sobriety being 6 days. Last drink was 3 days ago. Endorses low mood, low energy motivation, intermittent thoughts of suicide. No current plans. reports a history of 3-4 suicide attempts the last was age 21 when he [address] in [address]. Can not remember medication history that well. Endorses history of auditory hallucinations when he is extremely depressed which may be more internal negative self dialogue and also describes seeing shadows in the corners. No other substances Outside of nicotine. Denied any history of DTs. Reports history of seizures, the last age 17. Which was not substance related. Reports wanting to get into substance treatment as he has never done that before. We discussed past medications and we will trial Abilify. Reports being on Wellbutrin recently, but will hold off continuing or increasing that in the context of unclear seizure history. Also CIWA increass amitriptyline to 50mg for mood/sleep. Pt is alert and oriented; behavior is cooperative and calm; dressed in casual attire; mood is described as disappointed but getting better ; eye contact appropriate; Speech is normal rate, volume and not pressured; thought process is organized; Thought content is on tx; denies SI/HI/VH/AH. Patient reports feeling good and looking forward to returning home. denies SI/HI/VH/AH. Patient reports he plans on following up with his outpatient providers. 3 day notice up on 11/14/24. Status at Discharge Cognitive/behavioral status at discharge: Patient has insight and demonstrates good judgment in terms of wanting to pursue treatment. Patient has a safety plan that includes presenting to the closest ER or calling 911 if feeling unsafe. Functional status at discharge: independent ambulation Overall status at discharge: patient is back to baseline Time Spent with Patient Time attestation: Total time managing care of this patient today _20___ minutes. Time spent: Less than 30 minutes Discharge Plan Discharge Anticipated Discharge Date/Time: 11/14/24 10:00 Patient Disposition: Home, Self-Care Discharge Diagnosis: MDD, Alcohol use d/o Referrals: Jonny Mari ([facility]) [Other] - 11/21/24 1:00 pm Referral Note: in person appointment Ruthy Haines ([facility] prescriber) [Other] - 12/11/24 1:10 pm Referral Note: telehealth appointment Eduardo Marquez MD [Primary Care Provider, Internal Medicine] - 11/26/24 11:00 am Referral Note: Discharge Medications: New aripiprazole [Abilify] 5 mg Tablet 5 mg PO DAILY 30 Days Qty: 30 0RF amitriptyline 50 mg Tablet 50 mg PO BEDTIME 30 Days Qty: 30 0RF Continued dicyclomine 10 mg capsule 10 mg PO TID 90 Days Qty: 270 1RF polyethylene glycol 3350 [Miralax] 17 gram/dose powder 17 g PO DAILY 30 Days Qty: 510 2RF Rx Instructions: Take 17G (one cap full) daily with 8oz of water albuterol sulfate [Ventolin HFA] 90 mcg/actuation HFA aerosol inhaler 2 puff inhalation Q4-6H PRN (Reason: Shortness Of Breath) Qty: 1 0RF sennosides [senna] 8.6 mg Tablet 8.6 mg PO DAILY PRN (Reason: Constipation) Rx Instructions: Rx states to take 2 tablets PRN for constipation. Patient states that he takes only 1 tablet PRN for constipation hydrocortisone 2.5 % cream with perineal applicator 1 appl NE USEASDIRECTD PRN (Reason: Hemorrhoids) Rx Instructions: Apply 1 application rectally 2-4 times a day as needed for hemorrhoids. ketoconazole 2 % cream 1 appl topical DAILY ondansetron 4 mg tablet,disintegrating 4 mg PO Q6-8H PRN (Reason: nausea/vomiting) (DME) Goran Campbell [facility] Spacer MISCELLANEOUS DIRECTED disulfiram 250 mg tablet 250 mg PO DAILY triamcinolone acetonide 0.1 % cream 1 appl topical DAILY loratadine [Allergy Relief (loratadine)] 10 mg tablet 10 mg PO DAILY acamprosate 333 mg tablet,delayed release (DR/EC) 666 mg PO TID 30 Days Qty: 180 0RF Rx Instructions: Take two tablets by mouth three times per day. esomeprazole magnesium 20 mg capsule,delayed release(DR/EC) 20 mg PO DAILY Qty: 90 1RF Rx Instructions: Take 1 tablet daily. Best taken 30 minutes before meal Discontinued amitriptyline 25 mg tablet 25 mg PO BEDTIME 30 Days Qty: 30 1RF Discharge Orders: Discharge Order (Routine); Ordered 11/14/24 Ordered By: Cynthia English Diet: Regular diet Activity on Discharge: As tolerated Stand Alone Forms: Patient Portal Discharge page, Community Support Print Language: Lao Activity Restrictions/Additional Instructions: You were seen in our Emergency Department today for treatment of a behavioral health issue. It is important after your visit that you follow up with either your behavioral health provider or a primary care doctor within 7 days.? If you have trouble finding a therapist you can reach out to [address] [phone] The National Suicide and Crisis Lifeline can be reached 7 days a week 24 hours a day.? Call 988 to speak with someone.? Return for any worsening symptoms or concerns such as thoughts of self harm or harm to others. Please call 911 if you feel your mental health is worsening.? Alcohol use disorder You were seen in the Emergency Department today for treatment of alcohol use disorder.? You may have been given medications to help with your withdrawal symptoms.? Please do not drink alcohol with them. This is very dangerous and can cause respiratory depression or other adverse reactions depending on the medication. If you would like to cut down or stop your alcohol use please consider calling our outpatient Addiction Treatment office:? [facility] ([id number]) [address] [place] [id number] You have also been given a list of treatment providers in the area that can assist as well.? If you experience seizures, vomiting blood, black stools, falls, severe headache, chest pain, fevers, trouble breathing, hallucinations or any other concerns you need to call 911 or seek immediate care. Please stay hydrated. Care Plan Goals: Maintain mood and safe behaviors Take medications as prescribed Continue to pursue sobriety Practice coping skills Continue with outpatient providers and reach out to them as needed Health Concerns: Mood stability and behaviors Sobriety Plan of Treatment: Follow up with your PCP, psychiatric provider and other outpatient providers regarding above concerns Take medications as prescribed Assessment: Patient has insight and demonstrates good judgment in terms of wanting to pursue treatment. Patient has a safety plan that includes presenting to the closest ER or calling 911 if feeling unsafe. Patient Instructions: Abuse of Alcohol (ED), Suicide Prevention (ED) Discharge Date/Time: 11/14/24 09:40
== END 2024-11-14 09:40 | disposition home or self-care (01) | DRG 751 ==
LOC: HO.ED 11-09 13:11 → HO.PADLT16 11-09 13:26
PROVIDERS: Admitting Provider Registered Nurse; Emergency Provider Emergency Medicine; PCP Family Medicine; Responsible Provider Registered Nurse; Visit Provider Psychiatry & Neurology Psychiatry
DX: F32.3 Major depressive disorder, single episode, severe with psychotic features (principal); R45.851 Suicidal ideations; F17.210 Nicotine dependence, cigarettes, uncomplicated; F10.90 Alcohol use, unspecified, uncomplicated; Y90.6 Blood alcohol level of 120-199 mg/100 ml; Z79.899 Other long term (current) drug therapy
CPT/HCPCS: 36415; 80053; 80061; 80307; 81003; 83036; 85025; 93005; 99285; S9485

== ENCOUNTER → 2024-11-09 12:37 | Outpatient (BNV) | payer OTHER, SELFPAY | PROVIDERS: Admitting Provider Registered Nurse; Emergency Provider Emergency Medicine; PCP Family Medicine; Visit Provider Internal Medicine Cardiovascular Disease | DX: Z13.6 Encounter for screening for cardiovascular disorders (principal) | CPT/HCPCS: 93010 ==

== ENCOUNTER → 2024-11-09 13:09 | Outpatient (BNV) | payer OTHER, SELFPAY | PROVIDERS: Admitting Provider Registered Nurse; Emergency Provider Emergency Medicine; PCP Family Medicine; Visit Provider Psychiatry & Neurology Psychiatry | DX: F32.3 Major depressive disorder, single episode, severe with psychotic features (principal); F10.90 Alcohol use, unspecified, uncomplicated | CPT/HCPCS: 90792; 99231; 99232 ==

== ENCOUNTER 2024-11-23 12:06 | Outpatient (AMB) | payer OTHER, SELFPAY ==
--- NOTE | 2024-11-23 12:14 | A.OFFPC_ITS ---
Vital Signs 11/23/24 12:20 Height 5 ft 5 in Weight 183 lb 8 oz BMI 30.5 BP 124/74 Blood Pressure Location Rt brachial Position Sitting Respiration 17 Pulse 99 Pulse Source Pulse Oximeter Temp 99 F Temp Source Temporal Artery Scan Pulse Oximetry (%) 97 Oxygen Delivery Method Room Air Intake Visit Reasons: f/u abd. pain, EtOH use/ent referral (lyft) Intake Note: Jaya presents in the office today for a follow up his colonoscopy and an ENT referral Allergies banana Allergy (Severe, Verified 11/23/24 12:17) Anaphylaxis aspirin (ASA) Allergy (Intermediate, Verified 11/23/24 12:17) Swelling avocado Allergy (Intermediate, Verified 11/23/24 12:17) Swelling gluten Allergy (Intermediate, Verified 11/23/24 12:17) Abdominal Pain ibuprofen (IBUPROFEN) Allergy (Intermediate, Verified 11/23/24 12:17) ABD PAIN AND REFLUX lactose Allergy (Intermediate, Verified 11/23/24 12:17) Abdominal Pain house dust Allergy (Unknown, Verified 11/23/24 12:17) Unknown venlafaxine Adverse Reaction (Mild, Verified 11/23/24 12:17) vomiting, disorintation seasonal Allergy (Unknown, Uncoded 11/23/24 12:17) unknown Medication List - Last Reconciled 11/23/24 by Eduardo Marquez MD acamprosate 666 mg (2 x 333 mg) PO TID 30 days albuterol sulfate 90 mcg/actuation (Ventolin HFA) 2 puffs inhalation Q4-6H PRN amitriptyline 50 mg PO BEDTIME 30 days aripiprazole (Abilify) 5 mg PO DAILY 30 days dicyclomine 10 mg PO TID 90 days hydrocortisone 2.5% 1 appl [place] USEASDIRECTD PRN inhalational spacing device (OptiChamber Sh[facility] spacer) ketoconazole 2% 1 appl topical DAILY loratadine (Allergy Relief (loratadine)) 10 mg PO DAILY ondansetron 4 mg PO Q6-8H PRN polyethylene glycol 3350 (Miralax) 17 grams PO DAILY 30 days sennosides (senna) 8.6 mg PO DAILY PRN triamcinolone acetonide 0.1% 1 appl topical DAILY Tobacco use date assessed: 11/23/24 Dental Screening Dental Screen Date: 11/23/24 Did you have a dental visit in the last 12 months?: No Did you have a dental problem in the last 6 months where you did not have access to dental care?: No Was dental information given to patient?: Patient has dentist HPI f/u abd. pain, EtOH use/ent referral (lyft) HPI Details 24 y/o male presents to [facility] dis charge visit admit date 11/09/24, discharge date 11/14/24. Had presented with plans to kill himself. Had reported significant depression. Had reported drinking heavily daily. They increased amitriptyline to 50mg for mood/sleep. Reports ongoing difficulty sleeping. Continues drinking EtOH. Does report some constipation. Complaints of irritation of throat/globus sensation. HPI Comments History of Present Illness Details Documentation assistance for Eduardo Marquez MD, was provided by [employer],? [employer] on 11/23/2024 at 12:56 PM EST. I, Dr. Marquez, have read, observed, and verified documentation. ?? PFSH Medical History Palpitations Fibromyalgia Sleep apnea IBS (irritable bowel syndrome) Asthma ETOH abuse Dizziness Atopic dermatitis Hypersomnolence Difficulty sleeping Pain in right hip Balanitis Adjustment reaction with mixed disturbance of emotions and conduct Depression Acid reflux Anxiety Constipation Surgical History Hx of colonoscopy H/O endoscopy Family History Mother Anxiety Depression Maternal Grandfather Substance abuse Maternal Grandmother Anxiety Depression Father Arthritis Social History (Updated 11/23/24 @ 12:20 by Cat Camacho MA) Household Members: Family Housing: House Do you presently have visiting nurse or other home services: No Alcohol intake: current Alcohol intake frequency: 3 or more drinks per day Alcohol type: hard liquor Comment: every day Patient Tobacco Use Status: Current everyday Tobacco user Tobacco use type: Cigarette Cigarette Packs Per Day: 0 Cigarettes Per Day: 0 e-Cigarette/Vaping Use: Currently Using Second Hand Smoke Exposure: No Use of substances other than those prescribed or required for medical reasons: No Substance Use Type: Marijuana service: No Current occupational status: employed 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 Sexual orientation: Straight/Heterosexual Cognitive needs: No Hearing needs: No Vision needs: No Questionnaire Thrive Questionnaire Date Thrive assessed: 04/10/24 I am a: Patient What is your living situation today?: I have a steady place to live Within the past 12 months, did the food you bought not last and you didn't have the money to get more?: Never true Within the past 12 months, did you worry whether your food would run out before you got money to buy more?: Never true Do you have trouble paying for medicines?: I choose not to answer this question Do you have trouble getting transportation to medical appointments?: Yes Do you have trouble paying your heating and electricity bill?: No Do you have trouble taking care of your child, family member or friend?: I choose not to answer this question Do you have trouble with day-to-day activities such as bathing, preparing meals, shopping, managing finances, etc.?: No Are you currently unemployed and looking for a job?: No Are you interested in more education?: I choose not to answer this question Please select the resources that you would like help with: Transportation Currently or been in a relationship where the following occur: I choose not to answer THRIVE Score: 1 PAULA-7 AMB Questionnaire PAULA-7 Date PAULA - 7 assessed: 04/10/24 Source: Developed by Drs. Ricky Jennings, Laura Giron, Khoa Steiner and colleagues, with an educational claude from [employer]. Review of Systems Const Denies chills, Denies fatigue, Denies fever(s), Denies headache(s) and Denies weakness ENT Denies dizziness and Denies headache(s) Card Denies dyspnea Resp Denies cough, Denies dyspnea, Denies wheezing and Denies other (shortness of breath) GI Reports constipation Musc Denies numbness and Denies tingling Neuro Denies dizziness, Denies headache(s), Denies numbness, Denies tingling and Denies weakness Psych Reports anxiety and Reports depression Endo Denies fatigue Aller/Immun Denies wheezing Physical exam (Primary Care) Vital Signs: Last Vital Signs Temp 99 F 11/23/24 12:20 Pulse 99 11/23/24 12:20 Resp 17 11/23/24 12:20 BP 124/74 11/23/24 12:20 Pulse Ox 97 11/23/24 12:20 Oxygen Delivery Method Room Air 11/23/24 12:20 BMI result Body Mass Index 30.5 Tobacco/Smoking Status: Tobacco use Status Tobacco use date assessed 11/23/24 11/23/24 12:22 Patient Tobacco Use Status Current everyday Tobacco 11/23/24 12:20 Tobacco use type Cigarette 11/23/24 12:20 e-Cigarette/Vaping Use Currently Using 11/23/24 12:20 Thrive Assessment: Date of Thrive Assessment Date Thrive assessed 04/10/24 11/23/24 12:15 Currently or been in a relationship where the following occur: I choose not to answer Const General: well developed; No acute distress Nutritional Appearance: well nourished Orientation/consciousness: patient oriented x3 HENMT Head: Yes normocephalic and Yes atraumatic Eyes General: appearance normal, both eyes and all related structures Pupils: Equal, round and reactive pupils present EOM: EOMs intact bilaterally Resp Effort & Inspection: normal respiratory effort Neuro General: patient oriented x3 and gait normal Cranial nerves: Yes Equal, round and reactive pupils present Psych Affect: normal affect Coding Level of Care Code Est Pt Level 5 (24878) Diagnoses Depression with anxiety F41.8 Alcohol use disorder F10.90 Globus sensation R09.89 Constipation K59.00 Alcoholic gastritis K29.20 Assessment & Plan Assessment & Plan (1) Depression with anxiety: Code(s): F41.8 - Other specified anxiety disorders Category: Medical Plan: Ongoing depression and anxiety. Recent a 6 day hospital stay for major depressive disorder with suicidal ideations. New medications include Abilify He was also given amitriptyline for insomnia by Psychiatry Mood is stable. Amitriptyline is helping him fall asleep well but He is still having difficulty with staying asleep. We discussed that this is likely due to alcohol use. Patient notes that when he was completely detoxed off alcohol, in the hospital, he was sleeping through the night. This is consistent the above. Sleep will likely improve as he is able to stop drinking. He continues working on this has a therapist and follows [facility]. He is on an can proceed to help cravings and withdrawal symptoms. (2) Alcohol use disorder: Comment: He is drinking about the same Code(s): F10.90 - Alcohol use, unspecified, uncomplicated Category: Medical Plan: As above, he is working on remaining abstinent from alcohol Follow-up with [facility] (3) Globus sensation: Code(s): R09.89 - Other specified symptoms and signs involving the circulatory and respiratory systems Category: Medical Plan: Enlarged tonsils and irritation of throat with globus sensation. Referred to ENT (4) Constipation: Code(s): K59.00 - Constipation, unspecified Category: Medical Plan: Hydrate well Can use soluble fiber Will give him a short course of senna Followed by GI and I recommend he follow-up with them (5) Alcoholic gastritis: Code(s): K29.20 - Alcoholic gastritis without bleeding Category: Medical Plan: Had been on esomeprazole in the hospital. Avoid alcohol use If symptoms worsened again could some omeprazole. Orders: Orders Hepatitis B,C Profile 11/23/24 Z11.3 - Encounter for screening for infections with a predominantly sexual mode of transmission Hemoglobin A1c 11/23/24 R73.01 - Impaired fasting glucose Referrals Ear/Nose/Throat Referral J35.1 - Hypertrophy of tonsils, R07.0 - Pain in throat Medications: New sennosides (senna) 8.6 mg PO BID 14 tabs 0RF 7 days calcium polycarbophil (FiberCon) 625 mg PO DAILY 30 tabs 2RF 30 days
[2024-11-23 12:20] VITALS: BP 124/74; PULSE 99; RESP 17; TEMP 37.2; O2SAT 97; BMI 30.5
--- OUTSIDE RECORDS SUMMARY | 2024-11-23 12:43 | XMS_ITS | Encounter Summary ---
Author Organization [facility] Address [address] [place] [address] Care Team Providers Care Joint Setter Name Role Phone Senia Tovar MD Primary Care Provider [phone] Reason for Visit * Reason Comments Medication Refill Encounter Details Date Type Department Care Team (Late st Contact Info) Description 11/30/2021 Refill [facility] Gastroenterology, [place] [address] [place] [address] Nohelia Medrano MD [address] [place] [address] Generalized abdominal pain Social History Tobacco Use [...] generalized documented in this encounter Care Teams Joint Setter Relationship Specialty Start Date End Date Senia Tovar MD [address] [place] [address] [place] [address] PCP - General General Pediatrics 07/07/21 documented as of this encounter
--- OUTSIDE RECORDS SUMMARY | 2024-11-23 12:43 | XMS_ITS | Encounter Summary ---
Author Organization [facility] Address [address] [place] [address] Care Team Providers Care Vat Cleaner Name Role Phone Inna Giron Primary Care Provider [phone] Senia Tovar MD Primary Care Provider [phone] Reason for Visit * Reason Comments Medication Refill Encounter Details Date Type Department Care Team (Late st Contact Info) Description 05/15/2020 Refill [facility] Gastroenterology, [place] [address] [place] [address] Nohelia Medrano MD [address] [place] [address] Generalized abdominal pain Social History Tobacco Use [...] generalized documented in this encounter Care Teams Vat Cleaner Relationship Specialty Start Date End Date Inna Giron PA [address] [place] [address] [address] [place] [address] PCP - General Physician Supervisor Typesetting 04/01/20 07/06/21 Senia Tovar MD [address] [place] [address] [address] [place] [address] PCP - General General Pediatrics 07/07/21 documented as of this encounter
--- OUTSIDE RECORDS SUMMARY | 2024-11-23 12:43 | XMS_ITS | Encounter Summary ---
Author Organization [facility] Address [address] [place] [address] Care Team Providers Care Manager Wireless Name Role Phone Senia Tovar MD Primary Care Provider [phone] Reason for Visit * Reason Comments Medication Refill Encounter Details Date Type Department Care Team ([facility] st Contact Info) Description 09/09/2021 Refill [facility] [address]astroenter[address] [phone] Nohelia Medrano MD [address] [place] [address] Generalized abdominal pain Social History Tobacco Use [...] documented in this encounter Care Teams Manager Wireless Relationship Specialty Start Date End Date Senia Tovar MD [address] [place] [address] [address] [place], [place] [address] PCP - General General Pediatrics 07/07/21 documented as of this encounter
--- OUTSIDE RECORDS SUMMARY | 2024-11-23 12:43 | XMS_ITS | Encounter Summary ---
Author Organization [address] [address] Care Team Providers Care Date Pitter Name Role Phone Senia Tovar MD Primary Care Provider [phone] Reason for Visit * Reason Comments Medication Refill Encounter Details Date Type Department Care Team ([facility] st Contact Info) Description 11/27/2021 Refill [facility] Gastroenter[address] [address] Nohelia Medrano MD [address] [place] [address] Generalized abdominal pain Social History Tobacco Use [...] did not know. He was very confused. Registered Nurse Behavioral Health read him the office visit plan to [...] generalized documented in this encounter Care Teams Date Pitter Relationship Specialty Start Date End Date Senia Tovar MD [address] [place] [address] [place] [address] PCP - General General Pediatrics 07/07/21 documented as of this encounter
--- OUTSIDE RECORDS SUMMARY | 2024-11-23 12:43 | XMS_ITS | Encounter Summary ---
Author Organization [facility] Address [address] [place] [address] Care Team Providers Care Surgeon'S Assistant Name Role Phone Senia Tovar MD Primary Care Provider [phone] Reason for Visit * Reason Comments Medication Refill Encounter Details Date Type Department Care Team (Late st Contact Info) Description 07/26/2021 Refill [facility] Gastroenterology, [place] [address] [place] [address] Nohelia Medrano MD [address] [place] [address] Generalized abdominal pain Social History Tobacco Use [...] generalized documented in this encounter Care Teams Surgeon'S Assistant Relationship Specialty Start Date End Date Senia Tovar MD [address] [place] [address] [place] [address] PCP - General General Pediatrics 07/07/21 documented as of this encounter
--- OUTSIDE RECORDS SUMMARY | 2024-11-23 12:43 | XMS_ITS | Encounter Summary ---
Author Organization [facility] Address [address] [place] [place] [address] Care Team Providers Care Hand Cloth Folder Name Role Phone Inna Giron Primary Care Provider [phone] Senia Tovar MD Primary Care Provider [phone] Reason for Visit * Reason Comments Medication Refill Encounter Details Date Type Department Care Team (Late st Contact Info) Description 07/03/2020 Refill [facility] Gastroenterology, [place] [address] [place] [address] Nohelia Medrano MD [address] [place] [address] Generalized abdominal pain Social History Tobacco Use [...] generalized documented in this encounter Care Teams Hand Cloth Folder Relationship Specialty Start Date End Date Inna Giron PA [address] [place] [address] [place] [address] PCP - General Physician Fashion Styling Intern 04/01/20 07/06/21 Senia Tovar MD [address] [place] [address] [place] [address] PCP - General General Pediatrics 07/07/21 documented as of this encounter
--- OUTSIDE RECORDS SUMMARY | 2024-11-23 12:43 | XMS_ITS | Encounter Summary ---
Author Organization [facility] Address [address] [place] [address] Care Team Providers Care Broacher Name Role Phone Inna Giron Primary Care Provider Senia Tovar MD Primary Care Provider [phone] Reason for Visit * Reason Comments Medication Refill Encounter Details Date Type Department Care Team (Late st Contact Info) Description 06/20/2020 Refill [facility] Gastroenterology, [place] [address] [place] [address] Nohelia Medrano MD [address] [place] [address] Generalized abdominal pain Social History Tobacco Use [...] generalized documented in this encounter Care Teams Broacher Relationship Specialty Start Date End Date Inna Giron PA [address] [place] [address] [address] [place] [address] PCP - General Physician Crew Caller 04/01/20 07/06/21 Senia Tovar MD [address] [place] [address] [place] [address] PCP - General General Pediatrics 07/07/21 documented as of this encounter
--- OUTSIDE RECORDS SUMMARY | 2024-11-23 12:43 | XMS_ITS | Encounter Summary ---
Author Organization [facility] Address [address] [place] [address] Care Team Providers Care Parole Hearing Officer Name Role Phone Inna Giron Primary Care Provider [phone] Senia Tovar MD Primary Care Provider [phone] Reason for Visit * Reason Comments Medication Refill Encounter Details Date Type Department Care Team (Late st Contact Info) Description 04/05/2021 Refill [facility] Gastroenterology, [place] [address] [place] [address] Nohelia Medrano MD [address] [place] [address] Generalized abdominal pain Social History Tobacco Use [...] generalized documented in this encounter Care Teams Parole Hearing Officer Relationship Specialty Start Date End Date Inna Giron PA [address] [place] [address] [place] [address] PCP - General Physician Hairspring Cutter 04/01/20 07/06/21 Senia Tovar MD [address] [place] [address] [place] [address] PCP - General General Pediatrics 07/07/21 documented as of this encounter
--- OUTSIDE RECORDS SUMMARY | 2024-11-23 12:43 | XMS_ITS | Encounter Summary ---
Author Organization [facility] Address [address] [place] [address] Care Team Providers Care Hand Buffing Wheel Former Name Role Phone Inna Giron Primary Care Provider [phone] Senia Tovar MD Primary Care Provider [phone] Reason for Visit * Reason Comments Medication Refill Encounter Details Date Type Department Care Team (Late st Contact Info) Description 01/07/2021 Refill [facility] Gastroenterology, [place] [address] [place] [address] Nohelia Medrano MD [address] [place] [address] Generalized abdominal pain Social History Tobacco Use [...] documented in this encounter Care Teams Hand Buffing Wheel Former Relationship Specialty Start Date End Date Inna Giron PA [address] [place] [address] [address] [place] [address] PCP - General Physician Supervisor Blasting 04/01/20 07/06/21 Senia Tovar MD [address] [place] [address] [place] [address] PCP - General General Pediatrics 07/07/21 documented as of this encounter
--- OUTSIDE RECORDS SUMMARY | 2024-11-23 12:43 | XMS_ITS | Encounter Summary ---
Author Organization [facility] Address [address] [place] [address] Care Team Providers Care Hair Worker Name Role Phone Inna Giron Primary Care Provider [phone] Senia Tovar MD Primary Care Provider [phone] Reason for Visit * Reason Comments Medication Refill Encounter Details Date Type Department Care Team (Late st Contact Info) Description 09/02/2020 Refill [facility] Gastroenterology, [place] [address] [place] [address] Nohelia Medrano MD [address] [place] [address] Generalized abdominal pain Social History Tobacco Use [...] generalized documented in this encounter Care Teams Hair Worker Relationship Specialty Start Date End Date Inna Giron PA [address] [place] [address] [address] [place] [address] PCP - General Physician Manager Department 04/01/20 07/06/21 Senia Tovar MD [address] [place] [address] [place] [address] PCP - General General Pediatrics 07/07/21 documented as of this encounter
--- OUTSIDE RECORDS SUMMARY | 2024-11-23 12:44 | XMS_ITS | Encounter Summary ---
Author Organization [facility] Address [address] [place] [address] Care Team Providers Care Gear Technician Name Role Phone Inna Giron Primary Care Provider [phone] Senia Tovar MD Primary Care Provider [phone] Reason for Visit * Reason Comments Medication Refill Encounter Details Date Type Department Care Team (Late st Contact Info) Description 12/10/2020 [facility]ill [facility] [address] [place] [address] Nohelia Medrano MD [address] [place] [address] Generalized abdominal pain Social History Tobacco Use [...] generalized documented in this encounter Care Teams Gear Technician Relationship Specialty Start Date End Date Inna Giron PA [address] [place] [address] [address] Jillian [place] [address] PCP - General Physician Armor Reconnaissance Vehicle Driver 04/01/20 07/06/21 Senia Tovar MD [address] [place] [address] [address] Jillian [place] [address] PCP - General General Pediatrics 07/07/21 documented as of this encounter
--- OUTSIDE RECORDS SUMMARY | 2024-11-23 12:44 | XMS_ITS | Encounter Summary ---
Author Organization [facility] Address [address] [place] [address] Care Team Providers Care Pack Press Operator Name Role Phone Inna Giron Primary Care Provider Senia Tovar MD Primary Care Provider Reason for Visit * Reason Comments Medication Refill Encounter Details Date Type Department Care Team (Late st Contact Info) Description 11/11/2020 Refill [facility] Gastroenterology, [place] [address] [place] [address] Nohelia Medrano MD [address] [place] [address] Generalized abdominal pain Social History Tobacco Use [...] generalized documented in this encounter Care Teams Pack Press Operator Relationship Specialty Start Date End Date Inna Giron PA [address] [place] [address] [address] [place] [address] PCP - General Physician Car Cleaning Supervisor 04/01/20 07/06/21 Senia Tovar MD [address] [place] [address] [place] [address] PCP - General General Pediatrics 07/07/21 documented as of this encounter
--- OUTSIDE RECORDS SUMMARY | 2024-11-23 12:44 | XMS_ITS | Encounter Summary ---
Author Organization [facility] Address [address] [place] [address] Care Team Providers Care Construction Laborer Name Role Phone Inna Giron Primary Care Provider [phone] Senia Tovar MD Primary Care Provider [phone] Reason for Visit * Reason Comments Medication Refill Encounter Details Date Type Department Care Team (Late st Contact Info) Description 10/08/2020 Refill [facility] Gastroenterology, [place] [address] [place] [address] Nohelia Medrano MD [address] [place] [address] Generalized abdominal pain Social History Tobacco Use [...] documented in this encounter Care Teams Construction Laborer Relationship Specialty Start Date End Date Inna Giron PA [address] [place] [address] [place] [address] PCP - General Physician Notary Public 04/01/20 07/06/21 Senia Tovar MD [address] [place] [address] [place] [address] PCP - General General Pediatrics 07/07/21 documented as of this encounter
--- OUTSIDE RECORDS SUMMARY | 2024-11-23 12:44 | XMS_ITS | Clinical Summary ---
Author Organization [facility] Address [address] [place] [address] Care Team Providers Care Hog Slaughterer Name Role Phone Senia Tovar MD Primary Care Provider [phone] Source Comments Please note that some or [...] so, obtain the minor's consent prior to disclosure.[facility] Allergies Active Allergy Reactions Criticality Noted [...] (06/30/2021): Added automatically from request for surgery [id number] Family History Medical History Relation Name Comments [...] 74 08/12/2023 8:26 AM EDT Temperature 36.6 C (97.9 F) 07/29/2021 2:42 PM EDT Respiratory Rate 18 07/29/2021 2:57 PM EDT [...] 2009 ADOLESCENT HIV SCREENING 06/02/2015 COVID-19 Vaccine ( - 2023-2 5 season) 2024 INFLUENZA (#1) 2024 NIRSEVIMAB VACCINES UNDER 8 MONTHS Aged Out No longer eligible based on patient's age to complete this topic Insurance [facility] Care Teams Hog Slaughterer Relationship Specialty Start Date End Date Senia Tovar MD [address] [place] [address] [place] [address] PCP - General General Pediatrics 07/07/21
== END 2024-11-23 12:53 | disposition home or self-care (01) ==
LOC: HO.HMCFM 12:07
PROVIDERS: PCP Family Medicine; Visit Provider Family Medicine
DX: F41.8 Other specified anxiety disorders (principal); F10.90 Alcohol use, unspecified, uncomplicated; K59.00 Constipation, unspecified; R09.89 Other specified symptoms and signs involving the circulatory and respiratory systems; K29.20 Alcoholic gastritis without bleeding

== ENCOUNTER → 2024-11-23 12:06 | Outpatient (BNVA) | payer OTHER, SELFPAY | PROVIDERS: PCP Family Medicine; Visit Provider Family Medicine | DX: R45.851 Suicidal ideations (principal); F41.8 Other specified anxiety disorders; F10.90 Alcohol use, unspecified, uncomplicated; R09.89 Other specified symptoms and signs involving the circulatory and respiratory systems; K59.00 Constipation, unspecified; K29.20 Alcoholic gastritis without bleeding; R73.01 Impaired fasting glucose; J35.1 Hypertrophy of tonsils; R07.0 Pain in throat | CPT/HCPCS: 99212 ==

== ENCOUNTER 2024-11-26 10:41 | Outpatient (AMB) | payer OTHER, SELFPAY ==
--- NOTE | 2024-11-26 11:01 | A.OFFPC_ITS ---
Vital Signs 11/26/24 11:02 Height 5 ft 5 in Weight 187 lb BMI 31.1 BP 134/90 H Blood Pressure Location Rt brachial Position Sitting Pulse 94 Pulse Source Pulse Oximeter Pulse Oximetry (%) 97 Oxygen Delivery Method Room Air Intake Visit Reasons: 15 mins cpe Allergies banana Allergy (Severe, Verified 11/26/24 11:05) Anaphylaxis aspirin (ASA) Allergy (Intermediate, Verified 11/26/24 11:05) Swelling avocado Allergy (Intermediate, Verified 11/26/24 11:05) Swelling gluten Allergy (Intermediate, Verified 11/26/24 11:05) Abdominal Pain ibuprofen (IBUPROFEN) Allergy (Intermediate, Verified 11/26/24 11:05) ABD PAIN AND REFLUX lactose Allergy (Intermediate, Verified 11/26/24 11:05) Abdominal Pain house dust Allergy (Unknown, Verified 11/26/24 11:05) Unknown venlafaxine Adverse Reaction (Mild, Verified 11/26/24 11:05) vomiting, disorintation seasonal Allergy (Unknown, Uncoded 11/26/24 11:05) unknown Medication List - Last Reconciled 11/26/24 by Eduardo Marquez MD acamprosate 666 mg (2 x 333 mg) PO TID 30 days albuterol sulfate 90 mcg/actuation (Ventolin HFA) 2 puffs inhalation Q4-6H PRN amitriptyline 50 mg PO BEDTIME 30 days aripiprazole (Abilify) 5 mg PO DAILY 30 days budesonide-formoterol 80-4.5 mcg/actuation (Symbicort) 2 puffs inhalation BID calcium polycarbophil (FiberCon) 625 mg PO DAILY 30 days dicyclomine 10 mg PO TID 90 days hydrocortisone 2.5% 1 appl ME USEASDIRECTD PRN inhalational spacing device ([facility] spacer) ketoconazole 2% 1 appl topical DAILY loratadine (Allergy Relief (loratadine)) 10 mg PO DAILY ondansetron 4 mg PO Q6-8H PRN polyethylene glycol 3350 (Miralax) 17 grams PO DAILY 30 days sennosides (senna) 8.6 mg PO DAILY PRN sennosides (senna) 8.6 mg PO BID 7 days triamcinolone acetonide 0.1% 1 appl topical DAILY Tobacco use date assessed: 11/26/24 Dental Screening Dental Screen Date: 11/26/24 Did you have a dental visit in the last 12 months?: Yes Did you have a dental problem in the last 6 months where you did not have access to dental care?: No Was dental information given to patient?: Patient has dentist HPI 15 mins cpe HPI Details 24 y/o male presents for a CPE. Labs drawn 11/10/24. Reviewed labs with pt. A1c 5.4%. Triglycerides 37. TC 198. LDL 117. HDL 54. PHQ-9 18, PAULA-7 19. Has Therapist & f/u w/ Psy. Pt reports GERD and does have esomeprazole. PFSH Medical History Suicidal ideation Palpitations Fibromyalgia Sleep apnea IBS (irritable bowel syndrome) Asthma ETOH abuse Dizziness Atopic dermatitis Hypersomnolence Difficulty sleeping Pain in right hip Balanitis Adjustment reaction with mixed disturbance of emotions and conduct Depression Acid reflux Anxiety Constipation Surgical History Hx of colonoscopy (~11/26/24) H/O endoscopy Family History Mother Anxiety Depression Maternal Grandfather Substance abuse Maternal Grandmother Anxiety Depression Father Arthritis Social History Household Members: Family Housing: House Do you presently have visiting nurse or other home services: No Alcohol intake: current Alcohol intake frequency: 3 or more drinks per day Alcohol type: hard liquor Comment: every day Patient Tobacco Use Status: Current everyday Tobacco user Tobacco use type: Cigarette Cigarette Packs Per Day: 0 Cigarettes Per Day: 0 e-Cigarette/Vaping Use: Currently Using Second Hand Smoke Exposure: No Substance Use Type: Marijuana service: No Current occupational status: employed 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 1. Little interest or pleasure in doing things: more than half the days 2. Feeling down, depressed, or hopeless: more than half the days 3. Trouble falling or staying asleep, or sleeping too much: nearly every day 4. Feeling tired or having little energy: nearly every day 5. Poor appetite or overeating: nearly every day 6. Feeling bad about yourself - or that you are a failure or have let yourself or your family down: nearly every day 7. Trouble concentrating on things, such as reading the newspaper or watching television: more than half the days 8. Moving or speaking so slowly that other people could have noticed. Or the opposite - being so fidgety or restless that you have been moving around a lot more than usual: not at all 9. Thoughts that you would be better off or of hurting yourself in some way: not at all Total score: 18 Depression Screening Interpretation: Positive Depression Screening Follow-up: In treatment Depression Screening Done: Yes 12664 - PHQ-9 Billing: Yes Source: Developed by Drs. Ricky Jennings, Laura Giron, Khoa Steiner and colleagues, with an educational claude from [employer]. Thrive Questionnaire Date Thrive assessed: 04/10/24 I am a: Patient What is your living situation today?: I have a steady place to live Within the past 12 months, did the food you bought not last and you didn't have the money to get more?: Never true Within the past 12 months, did you worry whether your food would run out before you got money to buy more?: Sometimes True Do you have trouble paying for medicines?: Yes Do you have trouble getting transportation to medical appointments?: Yes Do you have trouble paying your heating and electricity bill?: Yes Do you have trouble taking care of your child, family member or friend?: Yes Do you have trouble with day-to-day activities such as bathing, preparing meals, shopping, managing finances, etc.?: Yes Are you currently unemployed and looking for a job?: Yes Are you interested in more education?: Yes Please select the resources that you would like help with: Paying for medicine, Transportation, Utilities, Care for elder or disabled, Daily support and Education Currently or been in a relationship where the following occur: I choose not to answer THRIVE Score: 3 AUDIT C Alcohol Use Questionnaire (AUDIT-C) 1. How often do you have a drink containing alcohol?: 4 or more times a week 2. How many drinks containing alcohol do you have on a typical day when you are drinking?: 3 or 4 3. How often do you have six or more drinks on one occasion?: Monthly Total Score: 7 PAULA-7 AMB Questionnaire PAULA-7 Date PAULA - 7 assessed: 11/26/24 Feeling nervous, anxious, or on edge: 3 = Nearly every day Not being able to stop or control worryin = Nearly every day Worrying too much about different things: 3 = Nearly every day Trouble relaxin = Nearly every day Being so restless that it is hard to sit still: 1 = Several days Becoming easily annoyed or irritable: 3 = Nearly every day Feeling afraid as if something awful might happen: 3 = Nearly every day Total PAULA-7 score (0-4 normal; 5-9 mild; 10-14 moderate; 15-21 severe): 19 Source: Developed by Drs. Ricky Jennings, Laura Giron, Khoa Steiner and colleagues, with an educational claude from [employer]. PAULA-7 Assessment Billing PAULA-7 Assessment Tool: PAULA-7 Assessment 91391 Review of Systems Const Denies chills, Denies fatigue, Denies fever(s), Denies headache(s) and Denies weakness Eyes Denies change in vision ENT Denies dizziness, Denies headache(s), Denies hearing loss, Denies nasal congestion, Denies sinus pain, Denies sinus pressure and Denies sore throat Card Denies chest pain, Denies lightheadedness, Denies dyspnea and Denies other (palpitations) Resp Denies cough, Denies dyspnea and Denies wheezing GI Denies abdominal pain, Denies melena, Denies hematochezia, Denies change in bowel habits, Denies dyspepsia and Denies nausea Denies hematuria and Denies dysuria Musc Denies abnormal gait, Denies myalgias, Denies arthralgias, Denies numbness and Denies tingling Skin/Breast Denies rash, Denies unusual bruising and Denies wounds Neuro Denies abnormal gait, Denies dizziness, Denies headache(s), Denies memory loss, Denies numbness, Denies Sensory deficit (Neuro), Denies tingling and Denies weakness Psych Reports anxiety, Reports depression and Denies memory loss Endo Denies cold intolerance, Denies fatigue, Denies heat intolerance, Denies polydipsia and Denies polyuria Chong/Lymph Denies easy bleeding and Denies easy bruising Aller/Immun Denies wheezing Physical exam (Primary Care) Vital Signs: Last Vital Signs Pulse 94 11/26/24 11:02 BP 134/90 H 11/26/24 11:02 Pulse Ox 97 11/26/24 11:02 Oxygen Delivery Method Room Air 11/26/24 11:02 BMI result Body Mass Index 31.1 Tobacco/Smoking Status: Tobacco use Status Tobacco use date assessed 11/26/24 11/26/24 11:12 Patient Tobacco Use Status Current everyday Tobacco 11/26/24 11:12 Tobacco use type Cigarette 11/26/24 11:12 e-Cigarette/Vaping Use Currently Using 11/26/24 11:12 PHQ-9: PHQ-9 Score PHQ-9: Total score 18 11/26/24 11:12 Depression Screening Interpretation: Positive Depression Screening Follow-up: In treatment Thrive Assessment: Date of Thrive Assessment Date Thrive assessed 04/10/24 11/26/24 11:12 Currently or been in a relationship where the following occur: I choose not to answer Const General: no acute distress, well developed, alert and awake Nutritional Appearance: well nourished Orientation/consciousness: patient oriented x3 HENMT Head: Yes normocephalic and Yes atraumatic Ears: hearing grossly normal bilaterally and TM's normal bilaterally General nose exam: Normal external nose present and Normal nares present Mouth: Normal oral and palatal mucosa present and moist mucous membranes Teeth and gingiva: dentition normal Throat: Yes posterior oropharynx normal Eyes General: appearance normal, both eyes and all related structures Pupils: Equal, round and reactive pupils present and Pupil accommodation reflex normal EOM: EOMs intact bilaterally Neck Neck: Yes normal visual inspection, Yes no lymphadenopathy and Yes trachea midline Thyroid: Thyroid normal Carotids: no bruits Lymphatic: no lymphadenopathy noted Chest Chest palpation & inspection: normal inspection of the chest Resp Effort & Inspection: normal respiratory effort Auscultation: clear to auscultation bilaterally Cardio Rate: regular rate Rhythm: regular rhythm Heart sounds: S1 normal heart sound present, S2 normal heart sound present, no gallops, no murmurs and no rubs Bruits: no abdominal aortic bruits and no carotid bruits GI Palpation (GI): No Abdominal aortic bruit present, Soft to palpation, nontender, No hepatosplenomegaly present and No Rebound tenderness present Auscultation: normal bowel sounds General: Yes no CVA tenderness Back/Spine/Pelvis Back: no CVA tenderness Cervical Spine: cervical ROM normal and No Cervical spine tenderness Thoracic/Lumbar Spine: thoraco-lumbar ROM normal, No pain with thoraco-lumbar ROM, No thoracic spinal tenderness and No lumbar spinal tenderness Skin Lesions: no lesions Rashes: no rashes Trauma: no lacerations or abrasions Wounds: no wounds Nails: normal Neuro General: patient oriented x3 Cranial nerves: Yes Equal, round and reactive pupils present Cognition (Neuro): normal cognition Gait exam (Neuro): Normal gait present Motor exam (neuro): 5/5 motor strength present throughout Sensory Exam: No Sensory deficit (Neuro) Deep tendon reflexes (DTR's): Right patellar reflex intensity grade: 2+ and Left patellar reflex intensity grade: 2+ Extrem General: Yes normal to inspection and No edema Psych Appearance: grossly normal Affect: normal affect Attitude: cooperative Thought process: Normal thought process present Coding Level of Care Code Est Pt Prev Care 18-39y(37555) Diagnoses Adult general medical exam Z00.00 Cerumen impaction H61.20 Depression with anxiety F41.8 Screening for tuberculosis Z11.1 Gastroesophageal reflux disease, unspecified whether esophagitis present K21.9 Esophagitis presence: esophagitis presence not specified Additional Codes PAULA-7 Assessment Billing - PAULA-7 Assessment Tool: PAULA-7 Assessment 65750 ([id number]) PHQ-9 - 27080 - PHQ-9 Billing: Yes ([id number]) Assessment & Plan Assessment & Plan (1) Adult general medical exam: Code(s): Z00.00 - Encounter for general adult medical examination without abnormal findings Category: Medical Plan: 24-year-old male presents for complete physical exam Exam within normal limits except as noted below Encouraged healthy diet with active lifestyle and plenty of exercise (2) Cerumen impaction: Code(s): H61.20 - Impacted cerumen, unspecified ear Category: Medical Plan: Mild cerumen impaction at right TM He use Debrox drops Offered irrigation but patient declines at this time (3) Depression with anxiety: Code(s): F41.8 - Other specified anxiety disorders Category: Medical Plan: Followed by therapist and psychiatry (4) Screening for tuberculosis: Code(s): Z11.1 - Encounter for screening for respiratory tuberculosis Category: Medical Plan: T spot test ordered He will get this drawn today (5) Acid reflux: Code(s): K21.9 - Gastro-esophageal reflux disease without esophagitis Category: Medical Qualifiers: Esophagitis presence: esophagitis presence not specified Qualified Code(s): K21.9 - Gastro-esophageal reflux disease without esophagitis Plan: Has been prescribed as omeprazole and I refilled this today Plan Hepatitis testing is also ordered as patient requests this for work. Orders: Orders T Spot TB Today Z11.1 - Encounter for screening for respiratory tuberculosis Medications: Refilled esomeprazole magnesium Take 1 tablet daily. Best taken 30 minutes before meal 20 mg PO DAILY 90 caps 1RF
[2024-11-26 11:02] VITALS: BP 134/90; PULSE 94; O2SAT 97; BMI 31.1
--- OUTSIDE RECORDS SUMMARY | 2024-11-26 12:54 | XMS_ITS | Encounter Summary ---
Author Organization [address] [address] Care Team Providers Care Cardiac Rn Name Role Phone Senia Tovar MD Primary Care Provider [phone] Reason for Visit * Reason Comments Medication Refill Encounter Details Date Type Department Care Team ([facility] st Contact Info) Description 11/27/2021 Refill [facility] [address]astroenter[address] [address] Nohelia Medrano MD [address] [place] [address] Generalized abdominal pain Social History Tobacco Use [...] did not know. He was very confused. Clinical Orthoptist read him the office visit plan to [...] generalized documented in this encounter Care Teams Cardiac Rn Relationship Specialty Start Date End Date Senia Tovar MD [address] [place] [address] [place] [address] PCP - General General Pediatrics 07/07/21 documented as of this encounter
--- OUTSIDE RECORDS SUMMARY | 2024-11-26 12:54 | XMS_ITS | Encounter Summary ---
Author Organization [facility] Address [address] [place] [address] Care Team Providers Care Printing Machine Operator Tape Rules Name Role Phone Inna Giron Primary Care Provider [phone] Senia Tovar MD Primary Care Provider Reason for Visit * Reason Comments Medication Refill Encounter Details Date Type Department Care Team (Late st Contact Info) Description 10/08/2020 Refill [facility] Gastroenterology, [place] [address] [place] [address] Nohelia Medrano MD [address] [place] [address] Generalized abdominal pain Social History Tobacco Use [...] generalized documented in this encounter Care Teams Printing Machine Operator Tape Rules Relationship Specialty Start Date End Date Inna Giron PA [address] [place] [address] [place] [address] PCP - General Physician Associate School Psychologist 04/01/20 07/06/21 Senia Tovar MD [address] [place] [address] [place] [address] PCP - General General Pediatrics 07/07/21 documented as of this encounter
--- OUTSIDE RECORDS SUMMARY | 2024-11-26 12:54 | XMS_ITS | Encounter Summary ---
Author Organization [facility] Address [address] [place] [address] Care Team Providers Care Road Monkey Name Role Phone Senia Tovar MD Primary Care Provider [phone] Reason for Visit * Reason Comments Medication Refill Encounter Details Date Type Department Care Team ([facility] st Contact Info) Description 09/09/2021 Refill [facility] Gastroenterology[address] [address] Nohelia Medrano MD [address] [place] [address] Generalized abdominal pain Social History Tobacco Use [...] generalized documented in this encounter Care Teams Road Monkey Relationship Specialty Start Date End Date Senia Tovar MD [address] [place] [address] [address] [place], [place] [address] PCP - General General Pediatrics 07/07/21 documented as of this encounter
--- OUTSIDE RECORDS SUMMARY | 2024-11-26 12:54 | XMS_ITS | Encounter Summary ---
Author Organization [facility] Address [address] [place] [address] Care Team Providers Care Cad Programmer Name Role Phone Inna Giron Primary Care Provider [phone] Senia Tovar MD Primary Care Provider [phone] Reason for Visit * Reason Comments Medication Refill Encounter Details Date Type Department Care Team (Late st Contact Info) Description 05/15/2020 Refill [facility] Gastroenterology, [place] [address] [place] [address] Nohelia Medrano MD [address] [place] [address] Generalized abdominal pain Social History Tobacco Use [...] generalized documented in this encounter Care Teams Cad Programmer Relationship Specialty Start Date End Date Inna Giron PA [address] [place] [address] [address] [place] [address] PCP - General Physician Groover Operator 04/01/20 07/06/21 Senia Tovar MD [address] [place] [address] [address] [place] [address] PCP - General General Pediatrics 07/07/21 documented as of this encounter
--- OUTSIDE RECORDS SUMMARY | 2024-11-26 12:54 | XMS_ITS | Encounter Summary ---
Author Organization [facility] Address [address] [place] [address] Care Team Providers Care Advertising Sales Executive Name Role Phone Senia Tovar MD Primary Care Provider Reason for Visit * Reason Comments Medication Refill Encounter Details Date Type Department Care Team (Late st Contact Info) Description 07/26/2021 Refill [facility] Gastroenterology, [place] [address] [place] [address] Nohelia Medrano MD [address] [place] [phone] Generalized abdominal pain Social History Tobacco Use [...] generalized documented in this encounter Care Teams Advertising Sales Executive Relationship Specialty Start Date End Date Senia Tovar MD [address] [place] [address] [place] [address] PCP - General General Pediatrics 07/07/21 documented as of this encounter
--- OUTSIDE RECORDS SUMMARY | 2024-11-26 12:54 | XMS_ITS | Encounter Summary ---
Author Organization [facility] Address [address] [place] [address] Care Team Providers Care Crown Ironer Operator Name Role Phone Inna Giron Primary Care Provider [phone] Senia Tovar MD Primary Care Provider [phone] Reason for Visit * Reason Comments Medication Refill Encounter Details Date Type Department Care Team (Late st Contact Info) Description 09/02/2020 Refill [facility] Gastroenterology, [place] [address] [place] [address] Nohelia Medrano MD [address] [place] [address] Generalized abdominal pain Social History Tobacco Use [...] documented in this encounter Care Teams Crown Ironer Operator Relationship Specialty Start Date End Date Inna Giron PA [address] [place] [address] [address] [place] [address] PCP - General Physician Residential Sales Consultant 04/01/20 07/06/21 Senia Tovar MD [address] [place] [address] [place] [address] PCP - General General Pediatrics 07/07/21 documented as of this encounter
--- OUTSIDE RECORDS SUMMARY | 2024-11-26 12:54 | XMS_ITS | Encounter Summary ---
Author Organization [facility] Address [address] [place] [address] Care Team Providers Care Textile Knitter Name Role Phone Inna Giron Primary Care Provider [phone] Senia Tovar MD Primary Care Provider [phone] Reason for Visit * Reason Comments Medication Refill Encounter Details Date Type Department Care Team (Late st Contact Info) Description 12/10/2020 [facility] [address] [place] [address] Nohelia Medrano MD [address] [place] [address] Generalized abdominal pain Social History Tobacco Use [...] generalized documented in this encounter Care Teams Textile Knitter Relationship Specialty Start Date End Date Inna Giron PA [address] [place] [address] [address] Jillian [place] [address] PCP - General Physician Step Down Specialist 04/01/20 07/06/21 Senia Tovar MD [address] [place] [address] [address] Jillian [place] [address] PCP - General General Pediatrics 07/07/21 documented as of this encounter
--- OUTSIDE RECORDS SUMMARY | 2024-11-26 12:54 | XMS_ITS | Encounter Summary ---
Author Organization [facility] Address [address] [place] [address] Care Team Providers Care Diesel Machinist Name Role Phone Senia Tovar MD Primary Care Provider [phone] Reason for Visit * Reason Comments Medication Refill Encounter Details Date Type Department Care Team (Late st Contact Info) Description 11/30/2021 Refill [facility] Gastroenterology, [place] [address] [place] [address] Nohelia Medrano MD [address] [place] [address] Generalized abdominal pain Social History Tobacco Use [...] generalized documented in this encounter Care Teams Diesel Machinist Relationship Specialty Start Date End Date Senia Tovar MD [address] [place] [address] [place] [address] PCP - General General Pediatrics 07/07/21 documented as of this encounter
--- OUTSIDE RECORDS SUMMARY | 2024-11-26 12:54 | XMS_ITS | Encounter Summary ---
Author Organization [facility] Address [address] [place] [address] Care Team Providers Care Manager Shift Name Role Phone Inna Giron Primary Care Provider [phone] Senia Tovar MD Primary Care Provider [phone] Reason for Visit * Reason Comments Medication Refill Encounter Details Date Type Department Care Team (Late st Contact Info) Description 06/20/2020 Refill [facility] Gastroenterology, [place] [address] [place] [address] Nohelia Medrano MD [address] [place] [phone] Generalized abdominal pain Social History Tobacco Use [...] documented in this encounter Care Teams Manager Shift Relationship Specialty Start Date End Date Inna Giron PA [address] [place] [address] [address] [place] [address] PCP - General Physician Health Diagnostics Teacher 04/01/20 07/06/21 Senia Tovar MD [address] [place] [address] [place] [address] PCP - General General Pediatrics 07/07/21 documented as of this encounter
--- OUTSIDE RECORDS SUMMARY | 2024-11-26 12:54 | XMS_ITS | Encounter Summary ---
Author Organization [facility] Address [address] [place] [address] Care Team Providers Care Vertical Roll Operator Name Role Phone Inna Giron Primary Care Provider [phone] Senia Tovar MD Primary Care Provider [phone] Reason for Visit * Reason Comments Medication Refill Encounter Details Date Type Department Care Team (Late st Contact Info) Description 01/07/2021 Refill [facility] Gastroenterology, [place] [address] [place] [address] Nohelia Medrano MD [address] [place] [phone] Generalized abdominal pain Social History Tobacco Use [...] generalized documented in this encounter Care Teams Vertical Roll Operator Relationship Specialty Start Date End Date Inna Giron PA [address] [place] [address] [address] [place] [address] PCP - General Physician Jack Machine Operator 04/01/20 07/06/21 Senia Tovar MD [address] [place] [address] [place] [address] PCP - General General Pediatrics 07/07/21 documented as of this encounter
--- OUTSIDE RECORDS SUMMARY | 2024-11-26 12:54 | XMS_ITS | Encounter Summary ---
Author Organization [facility] Address [address] [place] [address] Care Team Providers Care Ballistics Expert Forensic Name Role Phone Inna Giron Primary Care Provider [phone] Senia Tovar MD Primary Care Provider [phone] Reason for Visit * Reason Comments Medication Refill Encounter Details Date Type Department Care Team (Late st Contact Info) Description 07/03/2020 Refill [facility] Gastroenterology, [place] [address] [place] [address] Nohelia Medrano MD [address] [place] [address] Generalized abdominal pain Social History Tobacco Use [...] generalized documented in this encounter Care Teams Ballistics Expert Forensic Relationship Specialty Start Date End Date Inna Giron PA [address] [place] [address] [place] [address] PCP - General Physician Software Firmware Engineer 04/01/20 07/06/21 Senia Tovar MD [address] [place] [address] [place] [address] PCP - General General Pediatrics 07/07/21 documented as of this encounter
--- OUTSIDE RECORDS SUMMARY | 2024-11-26 12:54 | XMS_ITS | Encounter Summary ---
Author Organization [facility] Address [address] [place] [address] Care Team Providers Care Certified Respiratory Therapist Name Role Phone Inna Giron Primary Care Provider [phone] Senia Tovar MD Primary Care Provider [phone] Reason for Visit * Reason Comments Medication Refill Encounter Details Date Type Department Care Team (Late st Contact Info) Description 04/05/2021 Refill [facility] Gastroenterology, [place] [address] [place] [address] Nohelia Medrano MD [address] [place] [phone] Generalized abdominal pain Social History Tobacco Use [...] generalized documented in this encounter Care Teams Certified Respiratory Therapist Relationship Specialty Start Date End Date Inna Giron PA [address] [place] [address] [place] [address] PCP - General Physician Self Pay Specialist 04/01/20 07/06/21 Senia Tovar MD [address] [place] [address] [place] [address] PCP - General General Pediatrics 07/07/21 documented as of this encounter
--- OUTSIDE RECORDS SUMMARY | 2024-11-26 12:55 | XMS_ITS | Encounter Summary ---
Author Organization [facility] Address [address] [place] [address] Care Team Providers Care Router Setter Name Role Phone Inna Giron Primary Care Provider Senia Tovar MD Primary Care Provider [phone] Reason for Visit * Reason Comments Medication Refill Encounter Details Date Type Department Care Team (Late st Contact Info) Description 11/11/2020 Refill [facility] Gastroenterology, [place] [address] [place] [address] Nohelia Medrano MD [address] [place] [address] Generalized abdominal pain Social History Tobacco Use [...] generalized documented in this encounter Care Teams Router Setter Relationship Specialty Start Date End Date Inna Giron PA [address] [place] [address] [address] [place] [address] PCP - General Physician Contract Loader 04/01/20 07/06/21 Senia Tovar MD [address] [place] [address] [place] [address] PCP - General General Pediatrics 07/07/21 documented as of this encounter
--- OUTSIDE RECORDS SUMMARY | 2024-11-26 12:55 | XMS_ITS | Clinical Summary ---
Author Organization [facility] Address [address] [place] [address] Care Team Providers Care Jumpbasting Facing Baster Name Role Phone Senia Tovar MD Primary Care Provider [phone] Source Comments Please note that some or [...] so, obtain the minor's consent prior to disclosure.[facility] Allergies Active Allergy Reactions Criticality Noted [...] (06/30/2021): Added automatically from request for surgery [id number] Family History Medical History Relation Name Comments [...] patient's age to complete this topic Insurance [facility] Care Teams Jumpbasting Facing Baster Relationship Specialty Start Date End Date Senia Tovar MD [address] [place] [address] [place] [address] PCP - General General Pediatrics 07/07/21
== END 2024-11-26 11:42 | disposition home or self-care (01) ==
PROVIDERS: PCP Family Medicine; Visit Provider Family Medicine
DX: Z00.00 Encounter for general adult medical examination without abnormal findings (principal); H61.21 Impacted cerumen, right ear; F41.8 Other specified anxiety disorders; Z11.1 Encounter for screening for respiratory tuberculosis; K21.9 Gastro-esophageal reflux disease without esophagitis

== ENCOUNTER 2024-11-26 10:41 | Outpatient (REF) | payer OTHER, SELFPAY ==
[2024-11-26 15:53] LABS: Total Hemoglobin (HGBA1C) 3777.2434 umol/L
[2024-11-27 03:54] LABS: HBS Num1 102.29 mIU/mL (0-7.99); HBc Num1 0.07 S/CO (0.00-0.79); HBsAGNum1 0.29 S/CO (0.00-0.99); Hepatitis B Surface Antigen Negative (Negative); ~HepC Num1 0.11 S/CO (0.00-0.79); ~Hepatitis B Surface Antibody REACTIVE (Nonreactive); ~Hepatitis C Antibody Nonreactive (Nonreactive)
[2024-11-29 02:54] LABS: TS Negative Control Passed; TS Panel A 0; TS Panel B 0; TS Positive Control Passed; TSpotTB Negative (Negative)
== END 2024-11-26 10:42 | disposition home or self-care (01) ==
LOC: HO.LAB 10:41
PROVIDERS: PCP Family Medicine; Visit Provider Family Medicine
DX: Z11.1 Encounter for screening for respiratory tuberculosis (principal); Z11.3 Encounter for screening for infections with a predominantly sexual mode of transmission; Z00.00 Encounter for general adult medical examination without abnormal findings; R73.01 Impaired fasting glucose; H61.20 Impacted cerumen, unspecified ear; F41.8 Other specified anxiety disorders; K21.9 Gastro-esophageal reflux disease without esophagitis; Z79.899 Other long term (current) drug therapy
CPT/HCPCS: 36415; 83036; 86481; 86704; 86706; 86803; 87340; 96127; 99395

== ENCOUNTER 2024-12-06 11:45 | Outpatient (AMB) | payer OTHER, SELFPAY ==
--- NOTE | 2024-12-06 11:55 | A.OFFVIS_ITS ---
Vital Signs 12/06/24 11:57 Height 5 ft 5 in Weight 187 lb BMI 31.1 BP 131/69 Blood Pressure Location Lt brachial Position Sitting Pulse 109 H Pulse Oximetry (%) 98 Oxygen Delivery Method Room Air Intake Visit Reasons: S/P Double Sean Intake Note: Patient follow up for IBS and abdominal pain, EGD/Colonoscopy and lab results. Patient cc: acid reflux, between diarrhea and constipation and shocking sensat ion. Air Conditioner Installer Helper Required: No Accompanied by: Self / Same As Patient Allergies banana Allergy (Severe, Verified 12/06/24 11:55) Anaphylaxis aspirin (ASA) Allergy (Intermediate, Verified 12/06/24 11:55) Swelling avocado Allergy (Intermediate, Verified 12/06/24 11:55) Swelling gluten Allergy (Intermediate, Verified 12/06/24 11:55) Abdominal Pain ibuprofen (IBUPROFEN) Allergy (Intermediate, Verified 12/06/24 11:55) ABD PAIN AND REFLUX lactose Allergy (Intermediate, Verified 12/06/24 11:55) Abdominal Pain house dust Allergy (Unknown, Verified 12/06/24 11:55) Unknown venlafaxine Adverse Reaction (Mild, Verified 12/06/24 11:55) vomiting, disorintation seasonal Allergy (Unknown, Uncoded 11/26/24 11:05) unknown HPI HPI S/P Double Sean: Details: Patient is a 24-year-old male with PMH of asthma, depression, anxiety and acid reflux. F/U after recent EGD and colonoscopy?review of results, management of persistent GI symptoms Pt continues to experience chronic intermittent abdominal pain (unchanged in severity/character). Reports improvement in constipation and bowel regularity?BM now qAM and 2?3x/day, attributed to current use of Senna (qHS or QOD) and AM FiberCon. Denies recurrence of hematochezia since last visit. Tolerating dicyclomine TID with meals. Persistent nausea with eating; OTC remedies (Pepto, [facility]-brand antiemetic) only partially effective. No Zofran since recent psych d/c but requests refill for PRN use due to refractory nausea. Onset of esomeprazole tx delayed until post-hospital d/c two to three weeks ago; pt now taking daily. Persistent reflux and dysphagia, regardless of diet. Ongoing alcohol consumption (down from daily 6?7 beers to ~2?3 beers q3d), participating in alcohol reduction program, adherent to acamprosate TID. No recent hospitalizations or urgent care visits for GI complaints, but recent inpatient psych stay (2?3 weeks ago) for chronic anxiety. Adherent to hydration, increasing fiber intake through diet. [facility] Medical History (Updated 12/06/24 @ 15:47 by Tamara Mayo CNP) Nausea Internal hemorrhoid Suicidal ideation Palpitations Fibromyalgia Sleep apnea IBS (irritable bowel syndrome) Asthma ETOH abuse Dizziness Atopic dermatitis Hypersomnolence Difficulty sleeping Pain in right hip Balanitis Adjustment reaction with mixed disturbance of emotions and conduct Depression Acid reflux Anxiety Constipation Surgical History Hx of colonoscopy (~11/26/24) H/O endoscopy Family History Mother Anxiety Depression Maternal Grandfather Substance abuse Maternal Grandmother Anxiety Depression Father Arthritis Social History Household Members: Family Housing: House Do you presently have visiting nurse or other home services: No Alcohol intake: current Alcohol intake frequency: 3 or more drinks per day Alcohol type: hard liquor Comment: every day Patient Tobacco Use Status: Current everyday Tobacco user Tobacco use type: Cigarette Cigarette Packs Per Day: 0 Cigarettes Per Day: 0 e-Cigarette/Vaping Use: Currently Using Second Hand Smoke Exposure: No Substance Use Type: Marijuana service: No Current occupational status: employed 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 Sexual orientation: Straight/Heterosexual Cognitive needs: No Hearing needs: No Vision needs: No Review of Systems Const Reports as per HPI ENT Reports as per HPI Card Reports as per HPI Resp Reports as per HPI GI Reports as per HPI Reports as per HPI Physical Exam Vital Signs: Last Vital Signs Pulse 109 H 12/06/24 11:57 BP 131/69 12/06/24 11:57 Pulse Ox 98 12/06/24 11:57 Oxygen Delivery Method Room Air 12/06/24 11:57 BMI result Body Mass Index 31.1 Const General: healthy appearing, no acute distress and well developed Nutritional Appearance: average body habitus Orientation/consciousness: patient oriented x3 HEENT Head: Yes normal to inspection, Yes normocephalic and Yes atraumatic Face and sinus: Yes normal facial exam Eyes General: appearance normal, both eyes and all related structures Neck Neck: Yes normal visual inspection Resp Effort & Inspection: normal respiratory effort, able to speak in complete sentences, no tracheal deviation and symmetric chest movement Cardio Jugular venous distension: no JVD GI Inspection: Yes normal to inspection and No distended Palpation (GI): Soft to palpation, not firm, nontender and No hepatosplenomegaly present Auscultation: normoactive bowel sounds Neuro General: patient oriented x3 Gait exam (Neuro): Normal gait present Psych Appearance: grossly normal Mental Status: mental status grossly normal Speech and movement: Normal speech and movement present Affect: Anxious affect present Attitude: cooperative Thought process: Normal thought process present Thought content: Normal thought content present Insight: Fair insight present (Psych) Judgement: Good judgement present (Psych) Results Reviewed Results Reviewed: Date of Service: 10/19/24 Narrative: Procedure: Upper endoscopy and colonoscopy Indication: Abd pain, dysphagia, rectal bleeding Endoscopist: Meghna Estrada MD EGD Findings: Esophagus: Normal esophageal mucosa was noted. The Z-line was at 36 cm. Cold forceps biopsies were taken from middle and lower esophagus to rule out eosinophilic esophagitis. Stomach: Normal gastric mucosa.. Retroflexion was performed in the cardia. Cold forceps biopsies were taken from the gastric antrum and body for histology. Duodenum: Mild focal erythema in the anterior duodenal bulb remaining mucosa otherwise normal to the extent examined. Cold forceps biopsies were taken from the duodenal bulb and 2nd portion of the duodenum to rule out celiac sprue. Additional intervention: Patient had reported intermittent choking with solid foods in the preop. Soft tipped Savary wire was introduced through the biopsy channel of the gastroscope and advanced to the antrum. The gastroscope was then backed out. Savary Gavino bougie was advanced over the guidewire and the esophagus was dilated to 18mm without any resistance felt. On relook, no heme or tear was noted. Colonoscopy Procedure: The patient was then turned for the colonoscopy. A digital rectal exam was performed which was normal. A distal attachment cap was affixed to the tip of the scope and the colonoscope was then inserted through the anus and advanced through the colon and advanced to the cecum at 70 cm and terminal ileum. Appendiceal orifice and ileocecal valve were identified. Mucosa was carefully examined under high definition white light as the instrument was slowly withdrawn in a retrograde panoramic fashion. Retroflexion was performed in ascending colon and rectum. The procedure was not difficult. The quality of the prep was BBPS: 3+2+3= adequate Withdrawal time 6 minutes Limitations: No limitations Findings: Mucosa: Normal colon and terminal ileum mucosa. Cold forceps biopsies were taken from the right and left side of the colon to rule out microscopic colitis. Protruding lesions: Medium internal hemorrhoids without stigmata of recent bleeding. Impression: 1. Normal esophagus (biopsy, dilation) 2. Normal stomach (biopsy) 3. Bulbar duodenitis (biopsy) 4. Normal colon and terminal ileum mucosa (biopsy) 5. Internal hemorrhoids Recommendations: No obvious narrowing in esophagus was noted on endoscopy today, empiric dilation was performed due to reported symptoms. Follow-up path results Avoid NSAIDs H Pylori treatment if biopsies + Start asymptomatic colorectal cancer screening at 47 years of age PATHOLOGY Collected: 10/19/24 Location: [facility] Received: 10/19/24 Diagnosis A. Duodenum, biopsy: Mild chronic (non-specific) duodenitis with patchy foveolar metaplasia; no increased intraepithelial lymphocytes seen. B. Stomach, antrum, biopsy: Gastric antral mucosa with mild chronic inactive gastritis; negative for Helicobacter pylori, intestinal metaplasia and dysplasia. C. Stomach, body, biopsy: - Gastric body mucosa within normal limits; negative for Helicobacter pylori, intestinal metaplasia and dysplasia. - Fragment of gastroesophageal junctional mucosa with mild chronic inflammation; negative for intestinal metaplasia and dysplasia. D. Esophagus, lower, biopsy: Squamous mucosa within normal limits; negative for inflammation (including intraepithelial eosinophils), fungal organisms, intestinal metaplasia and dysplasia. E. Esophagus, middle, biopsy: Squamous mucosa within normal limits; negative for inflammation (including intraepithelial eosinophils), intestinal metaplasia and dysplasia. F. Colon, right, biopsy: Colonic mucosa within normal limits; negative for active, chronic or microscopic colitis. G. Colon, left, biopsy: Colonic mucosa within normal limits; negative for active, chronic or microscopic colitis. Clinical History Pre-Op Dx: Abdominal pain, GERD Post-Op Dx: Duodenitis, hemorrhoid Assessment & Plan Assessment & Plan (1) Acid reflux: Comment: 10/19/24 Upper endoscopy-Normal esophagus with empirical dilation, Normal stomach, Bulbar duodenitis Code(s): K21.9 - Gastro-esophageal reflux disease without esophagitis Category: Medical Qualifiers: Esophagitis presence: esophagitis presence not specified Qualified Code(s): K21.9 - Gastro-esophageal reflux disease without esophagitis Plan: Mild-moderate, ongoing reflux/dysphagia despite partial improvement from lifestyle changes and PPI; just initiated esomeprazole ~2?3 wks ago. Additional Testing: None indicated at present. Medications: -Continue esomeprazole 40 mg PO QD, AM, 30 min before food. -Maintain dicyclomine TID for functional sx. Lifestyle: Continue strict EtOH reduction/cessation; reinforce dietary/lifestyle triggers (EtOH, caffeine, chocolate). Referrals: None new; continue substance counseling as planned. F/U: Reassess in 3 mo for symptom response and possible PPI taper if EtOH cessation achieved. (2) IBS (irritable bowel syndrome): Comment: 10/19/24 colonoscopy complete with adequate prep- normal mucosa and terminal ileum mucosa, Internal hemorrhoids Code(s): K58.9 - Irritable bowel syndrome, unspecified Category: Medical Qualifiers: Irritable bowel syndrome type: with constipation Qualified Code(s): K58.1 - Irritable bowel syndrome with constipation Plan: Improved BM frequency, no hematochezia since increasing fiber and laxative regimen; pain unchanged. Rationale: Improvement with Senna and FiberCon; still c/o days with pain. Additional Testing: None?recent colonoscopy WNL. Medications: -Renew Senna tabs (30 ct, 1 QHS?QOD PRN) -continue FiberCon AM -Continue dicyclomine TID. Lifestyle: Maintain increased dietary fiber and fluid intake; encourage further incorporation of fruits, greens, berries. Monitor for laxative dependency. F/U: Reassess next visit for symptom stability and frequency of laxative use. (3) Nausea: Code(s): R11.0 - Nausea Category: Medical Plan: Chronic, mostly postprandial, partial relief with OTC, triggers persistent. Not on chronic antiemetic post-recent psych d/c; requests PRN option. Multifactorial?EtOH, reflux, functional component, anxiety. Additional Testing: None at this time. Medications: Prescribe Zofran (ondansetron) 4 mg ODT, 1 tab q8h PRN (<12 tabs/30 days), reinforce for worst-case only, NOT for chronic use?review QTc risk, lactose content. Lifestyle: -Suggest aliyah tabs/lozenges as adjunct -reinforce EtOH cessation/trigger avoidance. F/U: Review antiemetic use at next visit; no further refills expected unless acute need arises. (4) Internal hemorrhoid: Code(s): K64.8 - Other hemorrhoids Category: Medical Plan: Stable; no recent bleeding. Normal colonoscopy; flares coincide with constipation. Additional Testing: None. Medications: As above?focus on bowel regulation for prevention. Lifestyle: Continue hydration, fiber, avoid straining. F/U: PRN if recurrent hematochezia. (5) Alcohol use disorder: Code(s): F10.90 - Alcohol use, unspecified, uncomplicated Category: Medical Plan: Progress?reduced quantity and frequency. Remains active in reduction program, intermittently misses appointments. Ongoing EtOH contributing to mucosal injury and functional sx. Additional Testing: None now. Medications: Continue acamprosate TID. Lifestyle: Reinforce cessation goal, encourage program adherence. Referrals: Maintain connection with counseling. F/U: Review progress at 3 mo. (6) Anxiety: Comment: extreme Code(s): F41.9 - Anxiety disorder, unspecified Category: Medical Plan: Persistent, triggers and worsens GI sx; recent psych IP stay. GI-psych symptom cycle ongoing. Additional Testing: None from GI side. Medications: Managed by psych/PCP. Lifestyle: Encourage psych f/u, therapy engagement, stress management. Referrals: Continue mental health support. F/U: Coordinate with psych team as needed; review impact on GI at next visit Plan Follow-up in 3 months or sooner as needed Time: I spent a total of 40 minutes on the date of encounter which includes: Preparing to see the patient (reviewed previous documentation, test results and medical history) Performing a medically appropriate exam and/or evaluation Ordering medications, tests, and procedures Documenting clinical information in the health record Medications: New ondansetron place tablet on tongue and allow to dissolve three times a day NEEDED for nausea 4 mg translingual Q8H PRN 45 tabs 0RF nausea and vomiting sennosides (senna) 8.6 mg PO DAILY 90 caps 3RF Discontinued sennosides (senna) Discontinued Reason: Duplicate 8.6 mg PO BID 7 days 14 tabs 0RF Coding Level of Care Code Established Pt Est Pt Level 4 (82185) Patient Type Established Diagnoses Gastroesophageal reflux disease, unspecified whether esophagitis present K21.9 Esophagitis presence: esophagitis presence not specified Irritable bowel syndrome with constipation K58.1 Irritable bowel syndrome type: with constipation Nausea R11.0 Internal hemorrhoid K64.8 Alcohol use disorder F10.90 Anxiety F41.9
[2024-12-06 11:57] VITALS: BP 131/69; PULSE 109; O2SAT 98; BMI 31.1
--- OUTSIDE RECORDS SUMMARY | 2024-12-06 14:05 | XMS_ITS | Encounter Summary ---
Author Organization [facility] Address [address] [place] [address] Care Team Providers Care Clinical Rn Name Role Phone Inna Giron Primary Care Provider [phone] Senia Tovar MD Primary Care Provider [phone] Reason for Visit * Reason Comments Medication Refill Encounter Details Date Type Department Care Team (Late st Contact Info) Description 10/08/2020 Refill [facility] Gastroenterology, [place] [address] [place] [address] Nohelia Medrano MD [address] [place] [address] Generalized abdominal pain Social History Tobacco Use [...] generalized documented in this encounter Care Teams Clinical Rn Relationship Specialty Start Date End Date Inna Giron PA [address] [place] [address] [place] [address] PCP - General Physician Principal Product Manager 04/01/20 07/06/21 Senia Tovar MD [address] [place] [address] [place] [address] PCP - General General Pediatrics 07/07/21 documented as of this encounter
--- OUTSIDE RECORDS SUMMARY | 2024-12-06 14:05 | XMS_ITS | Encounter Summary ---
Author Organization [facility] Address [address] [place] [address] Care Team Providers Care Guest Services Assistant Name Role Phone Inna Giron Primary Care Provider [phone] Senia Tovar MD Primary Care Provider [phone] Reason for Visit * Reason Comments Medication Refill Encounter Details Date Type Department Care Team (Late st Contact Info) Description 07/03/2020 Refill [facility] Gastroenterology, [place] [address] [place] [address] Nohelia Medrano MD [address] [place] [address] Generalized abdominal pain Social History Tobacco Use [...] generalized documented in this encounter Care Teams Guest Services Assistant Relationship Specialty Start Date End Date Inna Giron PA [address] [place] [address] [place] [address] PCP - General Physician Finisher Merchant Products 04/01/20 07/06/21 Senia Tovar MD [address] [place] [address] [place] [address] PCP - General General Pediatrics 07/07/21 documented as of this encounter
--- OUTSIDE RECORDS SUMMARY | 2024-12-06 14:05 | XMS_ITS | Encounter Summary ---
Author Organization [facility] Address [address] [place] [address] Care Team Providers Care Technology Support Analyst Name Role Phone Inna Giron Primary Care Provider [phone] Senia Tovar MD Primary Care Provider [phone] Reason for Visit * Reason Comments Medication Refill Encounter Details Date Type Department Care Team (Late st Contact Info) Description 04/05/2021 Refill [facility] Gastroenterology, [place] [address] [place] [address] Nohelia Medrano MD [address] [place] [address] Generalized abdominal pain Social History Tobacco Use [...] generalized documented in this encounter Care Teams Technology Support Analyst Relationship Specialty Start Date End Date Inna Giron PA [address] [place] [address] [place] [address] PCP - General Physician Agricultural Mechanic 04/01/20 07/06/21 Senia Tovar MD [address] [place] [address] [place] [address] PCP - General General Pediatrics 07/07/21 documented as of this encounter
--- OUTSIDE RECORDS SUMMARY | 2024-12-06 14:05 | XMS_ITS | Encounter Summary ---
Author Organization [facility] Address [address] [place] [address] Care Team Providers Care Msws Name Role Phone Inna Giron Primary Care Provider [phone] Senia Tovar MD Primary Care Provider [phone] Reason for Visit * Reason Comments Medication Refill Encounter Details Date Type Department Care Team (Late st Contact Info) Description 11/11/2020 Refill [facility] Gastroenterology, [place] [address] [place] [address] Nohelia Medrano MD [address] [place] [address] Generalized abdominal pain Social History Tobacco Use [...] generalized documented in this encounter Care Teams Msws Relationship Specialty Start Date End Date Inna Giorn PA [address] [place] [address] [address] [place] [address] PCP - General Physician Pharmacy Order Entry Technician 04/01/20 07/06/21 Senia Tovar MD [address] [place] [address] [place] [address] PCP - General General Pediatrics 07/07/21 documented as of this encounter
--- OUTSIDE RECORDS SUMMARY | 2024-12-06 14:05 | XMS_ITS | Encounter Summary ---
Author Organization [address] [address] Care Team Providers Care Personnel Clerks Supervisor Name Role Phone Senia Tovar MD Primary Care Provider [phone] Reason for Visit * Reason Comments Medication Refill Encounter Details Date Type Department Care Team ([facility] st Contact Info) Description 11/27/2021 Refill [facility] [address]astroenter[address] [address] Nohelia Medrano MD [address] [place] [address] Generalized abdominal pain Social History Tobacco Use [...] did not know. He was very confused. Electric Plater read him the office visit plan to [...] generalized documented in this encounter Care Teams Personnel Clerks Supervisor Relationship Specialty Start Date End Date Senia Tovar MD [address] [place] [address] [place] [address] PCP - General General Pediatrics 07/07/21 documented as of this encounter
--- OUTSIDE RECORDS SUMMARY | 2024-12-06 14:05 | XMS_ITS | Encounter Summary ---
Author Organization [facility] Address [address] [place] [address] Care Team Providers Care Mold Construction Supervisor Name Role Phone Inna Giron Primary Care Provider [phone] Senia Tovar MD Primary Care Provider [phone] Reason for Visit * Reason Comments Medication Refill Encounter Details Date Type Department Care Team (Late st Contact Info) Description 09/02/2020 Refill [facility] Gastroenterology, [place] [address] [place] [address] Nohelia Medrano MD [address] [place] [address] Generalized abdominal pain Social History Tobacco Use [...] generalized documented in this encounter Care Teams Mold Construction Supervisor Relationship Specialty Start Date End Date Inna Giron PA [address] [place] [address] [address] [place] [id number] PCP - General Physician Seam Steamer 04/01/20 07/06/21 Senia Tovar MD [address] [place] [address] [place] [address] PCP - General General Pediatrics 07/07/21 documented as of this encounter
--- OUTSIDE RECORDS SUMMARY | 2024-12-06 14:05 | XMS_ITS | Encounter Summary ---
Author Organization [facility] Address [address] [place] [address] Care Team Providers Care Board Writer Name Role Phone Inna Giron Primary Care Provider Senia Tovar MD Primary Care Provider [phone] Reason for Visit * Reason Comments Medication Refill Encounter Details Date Type Department Care Team (Late st Contact Info) Description 01/07/2021 Refill [facility] Gastroenterology, [place] [address] [place] [address] Nohelia Medrano MD [address] [place] [address] Generalized abdominal pain Social History Tobacco Use [...] generalized documented in this encounter Care Teams Board Writer Relationship Specialty Start Date End Date Inna Giron PA [address] [place] [address] [address] [place] [address] PCP - General Physician Translator And Interpreter 04/01/20 07/06/21 Senia Tovar MD [address] [place] [address] [place] [address] PCP - General General Pediatrics 07/07/21 documented as of this encounter
--- OUTSIDE RECORDS SUMMARY | 2024-12-06 14:05 | XMS_ITS | Clinical Summary ---
Author Organization [facility] Address [address] [place] [address] Care Team Providers Care Application Support Technician Name Role Phone Senia Tovar MD Primary Care Provider [phone] Source Comments Please note that some or [...] so, obtain the minor's consent prior to disclosure.[facility] Allergies Active Allergy Reactions Criticality Noted [...] (06/30/2021): Added automatically from request for surgery [id number] Family History Medical History Relation Name Comments [...] patient's age to complete this topic Insurance [facility] Care Teams Application Support Technician Relationship Specialty Start Date End Date Senia Tovar MD [address] [place] [address] [place] [address] PCP - General General Pediatrics 07/07/21
--- OUTSIDE RECORDS SUMMARY | 2024-12-06 14:05 | XMS_ITS | Encounter Summary ---
Author Organization [facility] Address [address] [place] [address] Care Team Providers Care Telephony Engineer Name Role Phone Senia Tovar MD Primary Care Provider [phone] Reason for Visit * Reason Comments Medication Refill Encounter Details Date Type Department Care Team (Late st Contact Info) Description 11/30/2021 Refill [facility] Gastroenterology, [place] [address] [place] [address] Nohelia Medrano MD [address] [place] [address] Generalized abdominal pain Social History Tobacco Use [...] generalized documented in this encounter Care Teams Telephony Engineer Relationship Specialty Start Date End Date Senia Tovar MD [address] [place] [address] [place] [address] PCP - General General Pediatrics 07/07/21 documented as of this encounter
--- OUTSIDE RECORDS SUMMARY | 2024-12-06 14:05 | XMS_ITS | Encounter Summary ---
Author Organization [facility] Address [address] [place] [address] Care Team Providers Care Obgyn Hospitalist Physician Name Role Phone Senia Tovar MD Primary Care Provider Reason for Visit * Reason Comments Medication Refill Encounter Details Date Type Department Care Team (Late st Contact Info) Description 07/26/2021 Refill [facility] Gastroenterology, [place] [address] [place] [address] Nohelia Medrano MD [address] [place] [address] Generalized abdominal pain Social History Tobacco Use [...] generalized documented in this encounter Care Teams Obgyn Hospitalist Physician Relationship Specialty Start Date End Date Senia Tovar MD [address] [place] [address] [place] [address] PCP - General General Pediatrics 07/07/21 documented as of this encounter
--- OUTSIDE RECORDS SUMMARY | 2024-12-06 14:05 | XMS_ITS | Encounter Summary ---
Author Organization [facility] Address [address] [place] [address] Care Team Providers Care Pilot Boat Deckhand Name Role Phone Senia Tovar MD Primary Care Provider [phone] Reason for Visit * Reason Comments Medication Refill Encounter Details Date Type Department Care Team ([facility] st Contact Info) Description 09/09/2021 Refill [facility] [address] [address] Nohelia Medrano MD [address] [place] [address] Generalized abdominal pain Social History Tobacco Use [...] generalized documented in this encounter Care Teams Pilot Boat Deckhand Relationship Specialty Start Date End Date Senia Tovar MD [address] [place] [address] [address] [place], [place] [address] PCP - General General Pediatrics 07/07/21 documented as of this encounter
--- OUTSIDE RECORDS SUMMARY | 2024-12-06 14:05 | XMS_ITS | Encounter Summary ---
Author Organization [facility] Address [address] [place] [address] Care Team Providers Care Cleaning Custodian Name Role Phone Inna Giron Primary Care Provider [phone] Senia Tovar MD Primary Care Provider [phone] Reason for Visit * Reason Comments Medication Refill Encounter Details Date Type Department Care Team (Late st Contact Info) Description 06/20/2020 Refill [facility] Gastroenterology, [place] [address] [place] [address] Nohelia Medrano MD [address] [place] [address] Generalized abdominal pain Social History Tobacco Use [...] generalized documented in this encounter Care Teams Cleaning Custodian Relationship Specialty Start Date End Date Inna Giron PA [address] [place] [address] [address] [place] [address] PCP - General Physician Brim Stretcher 04/01/20 07/06/21 Senia Tovar MD [address] [place] [address] [place] [address] PCP - General General Pediatrics 07/07/21 documented as of this encounter
--- OUTSIDE RECORDS SUMMARY | 2024-12-06 14:05 | XMS_ITS | Encounter Summary ---
Author Organization [facility] Address [address] [place] [address] Care Team Providers Care Meat Clerk Name Role Phone Inna Giron Primary Care Provider [phone] Senia Tovar MD Primary Care Provider [phone] Reason for Visit * Reason Comments Medication Refill Encounter Details Date Type Department Care Team (Late st Contact Info) Description 05/15/2020 Refill [facility] Gastroenterology, [place] [address] [place] [address] Nohelia Medrano MD [address] [place] [address] Generalized abdominal pain Social History Tobacco Use [...] generalized documented in this encounter Care Teams Meat Clerk Relationship Specialty Start Date End Date Inna Giron PA [address] [place] [address] [address] [place] [address] PCP - General Physician School Crossing Guard 04/01/20 07/06/21 Senia Tovar MD [address] [place] [address] [address] [place] [address] PCP - General General Pediatrics 07/07/21 documented as of this encounter
--- OUTSIDE RECORDS SUMMARY | 2024-12-06 14:05 | XMS_ITS | Encounter Summary ---
Author Organization [facility] Address [address] [place] [address] Care Team Providers Care Alignment Mechanic Name Role Phone Inna Giron Primary Care Provider [phone] Senia Tovar MD Primary Care Provider [phone] Reason for Visit * Reason Comments Medication Refill Encounter Details Date Type Department Care Team (Late st Contact Info) Description 12/10/2020 [facility]ill [facility] [address] [place] [address] Nohelia Medrano MD [address] [place] [address] Generalized abdominal pain Social History Tobacco Use [...] generalized documented in this encounter Care Teams Alignment Mechanic Relationship Specialty Start Date End Date Inna Giron PA [address] [place] [address] [address] Jillian [place] [address] PCP - General Physician Engineer Internship 04/01/20 07/06/21 Senia Tovar MD [address] [place] [address] [address] Jillian [place] [address] PCP - General General Pediatrics 07/07/21 documented as of this encounter
== END 2024-12-06 12:56 | disposition home or self-care (01) ==
LOC: HO.HGI 11:46
PROVIDERS: PCP Family Medicine; Visit Provider Nurse Practitioner Family
DX: K21.9 Gastro-esophageal reflux disease without esophagitis (principal); K58.1 Irritable bowel syndrome with constipation; R11.0 Nausea; K64.8 Other hemorrhoids; F10.90 Alcohol use, unspecified, uncomplicated; F41.9 Anxiety disorder, unspecified
CPT/HCPCS: 99214

== ENCOUNTER → 2024-12-06 11:45 | Outpatient (BNVA) | payer OTHER, SELFPAY | PROVIDERS: PCP Family Medicine; Visit Provider Nurse Practitioner Family | DX: K21.9 Gastro-esophageal reflux disease without esophagitis (principal); K58.1 Irritable bowel syndrome with constipation; K64.8 Other hemorrhoids; R11.0 Nausea; F10.90 Alcohol use, unspecified, uncomplicated; F41.9 Anxiety disorder, unspecified | CPT/HCPCS: 99212 ==

== ENCOUNTER 2024-12-12 13:40 | Outpatient (AMB) | payer OTHER, SELFPAY ==
[2024-12-12 13:42] VITALS: BP 122/64; PULSE 125; O2SAT 94; BMI 30.9
--- NOTE | 2024-12-12 13:42 | A.OFFVIS_ITS ---
Vital Signs 12/12/24 13:42 Height 5 ft 5 in Weight 186 lb BMI 30.9 BP 122/64 Blood Pressure Location Lt brachial Position Sitting Pulse 125 H Pulse Source Pulse Oximeter Pulse Oximetry (%) 94 Oxygen Delivery Method Room Air Intake Visit Reasons: Asthma Allergies banana Allergy (Severe, Verified 12/06/24 11:55) Anaphylaxis aspirin (ASA) Allergy (Intermediate, Verified 12/06/24 11:55) Swelling avocado Allergy (Intermediate, Verified 12/06/24 11:55) Swelling gluten Allergy (Intermediate, Verified 12/06/24 11:55) Abdominal Pain ibuprofen (IBUPROFEN) Allergy (Intermediate, Verified 12/06/24 11:55) ABD PAIN AND REFLUX lactose Allergy (Intermediate, Verified 12/06/24 11:55) Abdominal Pain house dust Allergy (Unknown, Verified 12/06/24 11:55) Unknown venlafaxine Adverse Reaction (Mild, Verified 12/06/24 11:55) vomiting, disorintation seasonal Allergy (Unknown, Uncoded 11/26/24 11:05) unknown HPI HPI Asthma: Details: 24-year-old gentleman, current active smoker and also uses vapes with underlying history of asthma since childhood previously controlled on Symbicort that he has been using once a day and albuterol MDI referred for pulmonary evaluation. Patient states that over the last year his asthma control has been getting much worse and he has been requiring to use albuterol MDI multiple times a day. He also complains of environmental allergies. Patient denies having recent pulmonary function testing or allergy testing. Patient denies family history of lung disease. Patient had also complain of multiple episodes of skipped beats and is interested in seeing Cardiology. Patient does have a dog as a pet. He is employed without exposure to industrial dusts. After the last office visit patient was started on injections and had at least for injection so far with suboptimal response. After the last office visit patient has ran out of his Symbicort and has not be en able to receive last several injections of Xolair, thus his symptoms have not been as well controlled. He is also complain of episodes of intermittent aspirations of liquids. He denies acute exacerbations. [facility] Medical History (Updated 12/12/24 @ 14:58 by Scotty Mercado MD) Nausea Internal hemorrhoid Suicidal ideation Palpitations Fibromyalgia Sleep apnea IBS (irritable bowel syndrome) Asthma ETOH abuse Dizziness Atopic dermatitis Hypersomnolence Difficulty sleeping Pain in right hip Balanitis Adjustment reaction with mixed disturbance of emotions and conduct Depression Acid reflux Anxiety Constipation Surgical History Hx of colonoscopy (~11/26/24) H/O endoscopy Family History Mother Anxiety Depression Maternal Grandfather Substance abuse Maternal Grandmother Anxiety Depression Father Arthritis Social History Household Members: Family Housing: House Do you presently have visiting nurse or other home services: No Alcohol intake: current Alcohol intake frequency: 3 or more drinks per day Alcohol type: hard liquor Comment: every day Patient Tobacco Use Status: Current everyday Tobacco user Tobacco use type: Cigarette Cigarette Packs Per Day: 0 Cigarettes Per Day: 0 e-Cigarette/Vaping Use: Currently Using Second Hand Smoke Exposure: No Substance Use Type: Marijuana service: No Current occupational status: employed 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 Sexual orientation: Straight/Heterosexual Cognitive needs: No Hearing needs: No Vision needs: No Review of Systems Const Denies daytime sleepiness, Denies excessive sweating, Denies fatigue, Denies fever(s), Denies lethargy, Denies malaise, Denies night sweats, Denies snoring and Denies weight loss Eyes Denies blurry vision and Denies itchy eyes ENT Denies nasal congestion, Denies post nasal drip, Denies sinus pain, Denies sinus pressure and Denies other ( Thrush) Card Denies chest pain, Denies pedal edema, Denies dyspnea, Denies orthopnea and Denies paroxysmal nocturnal dyspnea Resp Denies cough, Denies hemoptysis, Denies excessive phlegm production, Denies dyspnea, Denies snoring, Denies wheezing and Reports other (Chest tightness) GI Denies abdominal pain and Denies heartburn Musc Denies myalgias, Denies arthralgias and Denies joint swelling Skin/Breast Denies rash Neuro Denies memory loss and Denies seizure-like activity Psych Denies abnormal sleep pattern, Denies anxiety and Denies memory loss Endo Denies excessive sweating, Denies fatigue and Denies heat intolerance Chong/Lymph Denies easy bruising Aller/Immun Denies itchy eyes, Denies seasonal rhinorrhea and Denies wheezing Physical Exam Vital Signs: Last Vital Signs Pulse 125 H 12/12/24 13:42 BP 122/64 12/12/24 13:42 Pulse Ox 94 12/12/24 13:42 Oxygen Delivery Method Room Air 12/12/24 13:42 BMI result Body Mass Index 30.9 Const General: no acute distress and alert Nutritional Appearance: not obese Orientation/consciousness: Other orientation findings ( oriented) HEENT Head: Yes atraumatic Eyes General: appearance normal, both eyes and all related structures Sclerae: sclerae normal EOM: EOMs intact bilaterally Neck Neck: Yes supple Lymphatic: no lymphadenopathy noted Resp Effort & Inspection: normal respiratory effort and no use of accessory muscles Auscultation: clear to auscultation bilaterally Cardio Rate: regular rate Rhythm: regular rhythm Heart sounds: no gallops, no murmurs and no rubs Skin General skin exam: other ( warm) Extrem General: No clubbing, No cyanosis and No edema Assessment & Plan Assessment & Plan (1) Severe persistent asthma: Code(s): J45.50 - Severe persistent asthma, uncomplicated Category: Medical Plan: Suboptimal control off Symbicort and Xolair. Restart Symbicort and Xolair. Continue albuterol MDI. (2) Environmental allergies: Code(s): Z91.09 - Other allergy status, other than to drugs and biological substances Category: Medical Plan: Suboptimal control off Xolair. Restart Xolair. (3) Dysphagia: Code(s): R13.10 - Dysphagia, unspecified Category: Medical Plan: Will obtain modified barium swallow for further evaluation. Orders: Orders [place] Modified Barium Swallow Today R13.10 - Dysphagia, unspecified Medications: New budesonide-formoterol 80-4.5 mcg/actuation (Symbicort) 2 puffs inhalation BID 10.2 grams 6RF Refilled albuterol sulfate 90 mcg/actuation (Ventolin HFA) 2 puffs inhalation Q4-6H PRN 1 ea 6RF Shortness Of Breath Coding Level of Care Code Est Pt Level 4 (82702) Complex EM visit Add On G2211 Diagnoses Severe persistent asthma J45.50 Environmental allergies Z91.09 Dysphagia R13.10
--- OUTSIDE RECORDS SUMMARY | 2024-12-12 16:06 | XMS_ITS | Encounter Summary ---
Author Organization [facility] Address [address] [place] [address] Care Team Providers Care Clockmaker Apprentice Name Role Phone Senia Tovar MD Primary Care Provider Reason for Visit * Reason Comments Medication Refill Encounter Details Date Type Department Care Team (Late st Contact Info) Description 07/26/2021 Refill [facility] Gastroenterology, [place] [address] [place] [address] Nohelia Medrano MD [address] [place] [address] Generalized abdominal pain Social History Tobacco Use [...] generalized documented in this encounter Care Teams Clockmaker Apprentice Relationship Specialty Start Date End Date Senia Tovar MD [address] [place] [address] [place] [address] PCP - General General Pediatrics 07/07/21 documented as of this encounter
--- OUTSIDE RECORDS SUMMARY | 2024-12-12 16:06 | XMS_ITS | Encounter Summary ---
Author Organization [facility] Address [address] [place] [address] Care Team Providers Care Web Development Manager Name Role Phone Inna Giron Primary Care Provider [phone] Senia Tovar MD Primary Care Provider [phone] Reason for Visit * Reason Comments Medication Refill Encounter Details Date Type Department Care Team (Late st Contact Info) Description 07/03/2020 Refill [facility] Gastroenterology, [place] [address] [place] [address] Nohelia Medrano MD [address] [place] [address] Generalized abdominal pain Social History Tobacco Use [...] generalized documented in this encounter Care Teams Web Development Manager Relationship Specialty Start Date End Date Inna Giron PA [address] [place] [address] [place] [address] PCP - General Physician Asp Developer 04/01/20 07/06/21 Senia Tovar MD [address] [place] [address] [place] [address] PCP - General General Pediatrics 07/07/21 documented as of this encounter
--- OUTSIDE RECORDS SUMMARY | 2024-12-12 16:06 | XMS_ITS | Encounter Summary ---
Author Organization [facility] Address [address] [place] [address] Care Team Providers Care Geospatial Extractor Analysis Name Role Phone Inna Giron Primary Care Provider [phone] Senia Tovar MD Primary Care Provider [phone] Reason for Visit * Reason Comments Medication Refill Encounter Details Date Type Department Care Team (Late st Contact Info) Description 06/20/2020 Refill [facility] Gastroenterology, [place] [address] [place] [address] Nohelia Medrano MD [address] [place] [address] Generalized abdominal pain Social History Tobacco Use [...] generalized documented in this encounter Care Teams Geospatial Extractor Analysis Relationship Specialty Start Date End Date Inna Giron PA [address] [place] [address] [address] [place] [address] PCP - General Physician Tool Grinder Operator Surface 04/01/20 07/06/21 Senia Tovar MD [address] [place] [address] [place] [address] PCP - General General Pediatrics 07/07/21 documented as of this encounter
--- OUTSIDE RECORDS SUMMARY | 2024-12-12 16:06 | XMS_ITS | Encounter Summary ---
Author Organization [facility] Address [address] [place] [address] Care Team Providers Care Therapeutic Recreation Specialist Name Role Phone Senia Tovar MD Primary Care Provider [phone] Reason for Visit * Reason Comments Medication Refill Encounter Details Date Type Department Care Team (Late st Contact Info) Description 11/30/2021 Refill [facility] Gastroenterology, [place] [address] [place] [address] Nohelia Medrano MD [address] [place] [address] Generalized abdominal pain Social History Tobacco Use [...] generalized documented in this encounter Care Teams Therapeutic Recreation Specialist Relationship Specialty Start Date End Date Senia Tovar MD [address] [place] [address] [place] [address] PCP - General General Pediatrics 07/07/21 documented as of this encounter
--- OUTSIDE RECORDS SUMMARY | 2024-12-12 16:06 | XMS_ITS | Encounter Summary ---
Author Organization [facility] Address [address] [place] [address] Care Team Providers Care Asl Interpreter Name Role Phone Inna Giron Primary Care Provider [phone] Senia Tovar MD Primary Care Provider [phone] Reason for Visit * Reason Comments Medication Refill Encounter Details Date Type Department Care Team (Late st Contact Info) Description 09/02/2020 Refill [facility] Gastroenterology, [place] [address] [place] [address] Nohelia Medrano MD [address] [place] [address] Generalized abdominal pain Social History Tobacco Use [...] generalized documented in this encounter Care Teams Asl Interpreter Relationship Specialty Start Date End Date Inna Giron PA [address] [place] [address] [address] [place] [address] PCP - General Physician Oil Burner 04/01/20 07/06/21 Senia Tovar MD [address] [place] [address] [place] [address] PCP - General General Pediatrics 07/07/21 documented as of this encounter
--- OUTSIDE RECORDS SUMMARY | 2024-12-12 16:06 | XMS_ITS | Encounter Summary ---
Author Organization [facility] Address [address] [place] [address] Care Team Providers Care Corporate Tax Preparer Name Role Phone Inna Giron Primary Care Provider [phone] Senia Tovar MD Primary Care Provider [phone] Reason for Visit * Reason Comments Medication Refill Encounter Details Date Type Department Care Team (Late st Contact Info) Description 05/15/2020 Refill [facility] G[facility]enterology, [place] [address] [place] [address] Nohelia Medrano MD [address] [place] [address] Generalized abdominal pain Social History Tobacco Use [...] generalized documented in this encounter Care Teams Corporate Tax Preparer Relationship Specialty Start Date End Date Inna Giron PA [address] [place] [address] [address] [place] [address] PCP - General Physician House Wirer Helper 04/01/20 07/06/21 Senia Tovar MD [address] [place] [address] [address] [place] [address] PCP - General General Pediatrics 07/07/21 documented as of this encounter
--- OUTSIDE RECORDS SUMMARY | 2024-12-12 16:06 | XMS_ITS | Encounter Summary ---
Author Organization [facility] Address [address] [place] [address] Care Team Providers Care Course Instructor Name Role Phone Inna Giron Primary Care Provider [phone] Senia Tovar MD Primary Care Provider [phone] Reason for Visit * Reason Comments Medication Refill Encounter Details Date Type Department Care Team (Late st Contact Info) Description 04/05/2021 Refill [facility] Gastroenterology, [place] [address] [place] [address] Nohelia Medrano MD [address] [place] [address] Generalized abdominal pain Social History Tobacco Use [...] generalized documented in this encounter Care Teams Course Instructor Relationship Specialty Start Date End Date Inna Giron PA [address] [place] [address] [place] [address] PCP - General Physician It Security Consulting Director 04/01/20 07/06/21 Senia Tovar MD [address] [place] [address] [place] [address] PCP - General General Pediatrics 07/07/21 documented as of this encounter
--- OUTSIDE RECORDS SUMMARY | 2024-12-12 16:06 | XMS_ITS | Encounter Summary ---
Author Organization [address] [address] Care Team Providers Care Diesel Engine Pipe Fitter Name Role Phone Senia Tovar MD Primary Care Provider [phone] Reason for Visit * Reason Comments Medication Refill Encounter Details Date Type Department Care Team ([facility] st Contact Info) Description 11/27/2021 Refill [facility] Gastroenterology[address] [address] Nohelia Medrano MD [address] [place] [address] Generalized abdominal pain Social History Tobacco Use [...] did not know. He was very confused. Meal Temperer read him the office visit plan to [...] documented in this encounter Care Teams Diesel Engine Pipe Fitter Relationship Specialty Start Date End Date Senia Tovar MD [address] [place] [address] [place] [address] PCP - General General Pediatrics 07/07/21 documented as of this encounter
--- OUTSIDE RECORDS SUMMARY | 2024-12-12 16:06 | XMS_ITS | Encounter Summary ---
Author Organization [facility] Address [address] [place] [address] Care Team Providers Care Thiokol Operator Name Role Phone Inna Giron Primary Care Provider Senia Tovar MD Primary Care Provider [phone] Reason for Visit * Reason Comments Medication Refill Encounter Details Date Type Department Care Team (Late st Contact Info) Description 01/07/2021 Refill [facility] Gastroenterology, [place] [address] [place] [address] Nohelia Medrano MD [address] [place] [address] Generalized abdominal pain Social History Tobacco Use [...] generalized documented in this encounter Care Teams Thiokol Operator Relationship Specialty Start Date End Date Inna Giron PA [address] [place] [address] [address] [place] [address] PCP - General Physician County Program Technician 04/01/20 07/06/21 Senia Tovar MD [address] [place] [address] [place] [address] PCP - General General Pediatrics 07/07/21 documented as of this encounter
--- OUTSIDE RECORDS SUMMARY | 2024-12-12 16:07 | XMS_ITS | Encounter Summary ---
Author Organization [facility] Address [address] [place] [address] Care Team Providers Care Speech Professor Name Role Phone Inna Giron Primary Care Provider [phone] Senia Tovar MD Primary Care Provider [phone] Reason for Visit * Reason Comments Medication Refill Encounter Details Date Type Department Care Team (Late st Contact Info) Description 12/10/2020 [facility]ill [facility] [address] [place] [address] Nohelia Medrano MD [address] [place] [address] Generalized abdominal pain Social History Tobacco Use [...] generalized documented in this encounter Care Teams Speech Professor Relationship Specialty Start Date End Date Inna Giron PA [address] [place] [address] [address] GREENE Jillian [place] [address] PCP - General Physician Block Breaker Operator 04/01/20 07/06/21 Senia Tovar MD [address] [place] [address] [address] Jillian [place] [address] PCP - General General Pediatrics 07/07/21 documented as of this encounter
--- OUTSIDE RECORDS SUMMARY | 2024-12-12 16:07 | XMS_ITS | Encounter Summary ---
Author Organization [facility] Address [address] [place] [address] Care Team Providers Care Home Sales Service Professional Name Role Phone Senia Tovar MD Primary Care Provider [phone] Reason for Visit * Reason Comments Medication Refill Encounter Details Date Type Department Care Team ([facility] st Contact Info) Description 09/09/2021 Refill [facility] Gastroenterology[address] [address] Nohelia Medrano MD [address] [place] [address] Generalized abdominal pain Social History Tobacco Use [...] generalized documented in this encounter Care Teams Home Sales Service Professional Relationship Specialty Start Date End Date Senia Tovar MD [address] [place] [address] [address] [place], [place] [address] PCP - General General Pediatrics 07/07/21 documented as of this encounter
--- OUTSIDE RECORDS SUMMARY | 2024-12-12 16:07 | XMS_ITS | Encounter Summary ---
Author Organization [facility] Address [address] [place] [address] Care Team Providers Care Casino Porter Name Role Phone Inna Giron Primary Care Provider [phone] Senia Tovar MD Primary Care Provider [phone] Reason for Visit * Reason Comments Medication Refill Encounter Details Date Type Department Care Team (Late st Contact Info) Description 10/08/2020 Refill [facility] Gastroenterology, [place] [address] [place] [address] Nohelia Medrano MD [address] [place] [address] Generalized abdominal pain Social History Tobacco Use [...] generalized documented in this encounter Care Teams Casino Porter Relationship Specialty Start Date End Date Inna Giron PA [address] [place] [address] [place] [address] PCP - General Physician Baker Pastry 04/01/20 07/06/21 Senia Tovar MD [address] [place] [address] [place] [address] PCP - General General Pediatrics 07/07/21 documented as of this encounter
--- OUTSIDE RECORDS SUMMARY | 2024-12-12 16:07 | XMS_ITS | Encounter Summary ---
Author Organization [facility] Address [address] [place] [address] Care Team Providers Care Relief Salesperson Name Role Phone Inna Giron Primary Care Provider Senia Tovar MD Primary Care Provider [phone] Reason for Visit * Reason Comments Medication Refill Encounter Details Date Type Department Care Team (Late st Contact Info) Description 11/11/2020 Refill [facility] Gastroenterology, [place] [address] [place] [address] Nohelia Medrano MD [address] [place] [address] Generalized abdominal pain Social History Tobacco Use [...] generalized documented in this encounter Care Teams Relief Salesperson Relationship Specialty Start Date End Date Inna Giron PA [address] [place] [address] [address] [place] [address] PCP - General Physician Teacher Associate 04/01/20 07/06/21 Senia Tovar MD [address] [place] [address] [place] [address] PCP - General General Pediatrics 07/07/21 documented as of this encounter
--- OUTSIDE RECORDS SUMMARY | 2024-12-12 16:07 | XMS_ITS | Clinical Summary ---
Author Organization [facility] Address [address] [place] [address] Care Team Providers Care Pad Making Machine Operator Name Role Phone Senia Tovar MD Primary Care Provider [phone] Source Comments Please note that some or [...] so, obtain the minor's consent prior to disclosure.[facility] Allergies Active Allergy Reactions Criticality Noted [...] (06/30/2021): Added automatically from request for surgery [id number] Family History Medical History Relation Name Comments [...] patient's age to complete this topic Insurance [facility] Care Teams Pad Making Machine Operator Relationship Specialty Start Date End Date Senia Tovar MD [address] [place] [address] [place] [address] PCP - General General Pediatrics 07/07/21
== END 2024-12-12 14:06 | disposition home or self-care (01) ==
LOC: HO.HPS 13:40
PROVIDERS: PCP Family Medicine; Visit Provider Internal Medicine Pulmonary Disease
DX: J45.50 Severe persistent asthma, uncomplicated (principal); Z91.09 Other allergy status, other than to drugs and biological substances; R13.10 Dysphagia, unspecified
CPT/HCPCS: 99214

== ENCOUNTER → 2024-12-12 13:40 | Outpatient (BNVA) | payer OTHER, SELFPAY | PROVIDERS: PCP Family Medicine; Visit Provider Internal Medicine Pulmonary Disease | DX: J45.50 Severe persistent asthma, uncomplicated (principal); Z91.09 Other allergy status, other than to drugs and biological substances; R13.10 Dysphagia, unspecified | CPT/HCPCS: 99212 ==

== ENCOUNTER 2024-12-14 13:58 | Outpatient (AMB) | payer OTHER, SELFPAY ==
[2024-12-14 14:14] VITALS: BP 118/52; PULSE 122; BMI 30.7
--- NOTE | 2024-12-14 14:14 | A.OFFVIS_ITS ---
Vital Signs 12/14/24 14:14 Height 5 ft 5 in Weight 184 lb 11.958 oz BMI 30.7 BP 118/52 L Blood Pressure Location Lt brachial Pulse 122 H Pulse Source Monitor Intake Visit Reasons: Post op-Colonoscopy Associate Professor Of Management Required: No Accompanied by: Self / Same As Patient Allergies banana Allergy (Severe, Verified 12/14/24 14:18) Anaphylaxis aspirin (ASA) Allergy (Intermediate, Verified 12/14/24 14:18) Swelling avocado Allergy (Intermediate, Verified 12/14/24 14:18) Swelling gluten Allergy (Intermediate, Verified 12/14/24 14:18) Abdominal Pain ibuprofen (IBUPROFEN) Allergy (Intermediate, Verified 12/14/24 14:18) ABD PAIN AND REFLUX lactose Allergy (Intermediate, Verified 12/14/24 14:18) Abdominal Pain house dust Allergy (Unknown, Verified 12/14/24 14:18) Unknown venlafaxine Adverse Reaction (Mild, Verified 12/14/24 14:18) vomiting, disorintation seasonal Allergy (Unknown, Uncoded 11/26/24 11:05) unknown Medication List - Last Reconciled 12/14/24 by Merritt Patterson NP acamprosate 666 mg (2 x 333 mg) PO TID 30 days albuterol sulfate 90 mcg/actuation (Ventolin HFA) 2 puffs inhalation Q4-6H PRN amitriptyline 50 mg PO BEDTIME 30 days aripiprazole (Abilify) 5 mg PO DAILY 30 days budesonide-formoterol 80-4.5 mcg/actuation (Symbicort) 2 puffs inhalation BID calcium polycarbophil (FiberCon) 625 mg PO DAILY 30 days dicyclomine 10 mg PO TID 90 days esomeprazole magnesium 20 mg PO DAILY hydrocortisone 2.5% 1 appl [place] USEASDIRECTD PRN inhalational spacing device ([facility] spacer) ketoconazole 2% 1 appl topical DAILY loratadine (Allergy Relief (loratadine)) 10 mg PO DAILY ondansetron 4 mg translingual Q8H PRN polyethylene glycol 3350 (Miralax) 17 grams PO DAILY 30 days sennosides (senna) 8.6 mg PO DAILY triamcinolone acetonide 0.1% 1 appl topical DAILY HPI Comments Details: This is a 24-year-old male patient who is coming in for complaints of chest discomfort and palpitations. Patient was previously seen in this office for palpitations and was supposed to be undergoing a Holter and an echo study however patient was not able to complete this due to insurance discontinuation. Today, patient reports that his insurance is changed and would like to pursue the testings discussed previously. Patient reports that he has been having chest discomfort which he describes as a burning pain different from his pain due to GERD. Patient notes that he is symptoms are random in nature could be happening with exertion as well as at rest. Patient states that he has symptoms has been ongoing for over a year now and is getting worse over time. Patient states that sometimes he does have some shortness of breath with this. Patient also reports ongoing palpitations with elevated heart rates. Patient thinks this is due to his substance abuse including alcohol and nicotine. Patient states that he has recently started therapy where he has reduced his alcohol intake to every 3 days and is smoking [address] pen in 1 and half weeks. Patient also notes that he has been getting some shortness of breath for which patient is following pulmonology. Patient is otherwise denying any dizziness, orthopnea, PND, leg edema, presyncope, or syncope. [facility] Medical History (Updated 12/14/24 @ 14:41 by Merritt Patterson NP) Nausea Internal hemorrhoid Suicidal ideation Palpitations Fibromyalgia Sleep apnea IBS (irritable bowel syndrome) Asthma ETOH abuse Dizziness Atopic dermatitis Hypersomnolence Difficulty sleeping Pain in right hip Balanitis Adjustment reaction with mixed disturbance of emotions and conduct Depression Acid reflux Anxiety Constipation Surgical History Hx of colonoscopy (~11/26/24) H/O endoscopy Family History Mother Anxiety Depression Maternal Grandfather Substance abuse Maternal Grandmother Anxiety Depression Father Arthritis Social History Household Members: Family Housing: House Do you presently have visiting nurse or other home services: No Alcohol intake: current Alcohol intake frequency: 3 or more drinks per day Alcohol type: hard liquor Comment: every day Patient Tobacco Use Status: Current everyday Tobacco user Tobacco use type: Cigarette Cigarette Packs Per Day: 0 Cigarettes Per Day: 0 e-Cigarette/Vaping Use: Currently Using Second Hand Smoke Exposure: No Substance Use Type: Marijuana service: No Current occupational status: employed 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 Sexual orientation: Straight/Heterosexual Cognitive needs: No Hearing needs: No Vision needs: No Review of Systems Const Denies daytime sleepiness, Denies difficulty sleeping, Denies snoring, Denies stops breathing during sleep and Denies weakness Card Reports chest pain, Reports rapid heart rate, Denies irregular heart rhythm, Denies claudication, Denies leg edema, Denies lightheadedness, Denies palpitations, Reports dyspnea, Denies dyspnea on exertion, Denies orthopnea, Denies paroxysmal nocturnal dyspnea and Denies slow heart rate Resp Denies cough, Reports dyspnea, Denies dyspnea on exertion and Denies snoring GI Reports no additional complaints, Denies hematochezia, Denies change in stool character and Denies dyspepsia Musc Denies abnormal gait, Denies muscle weakness and Denies numbness Neuro Denies abnormal gait, Denies numbness and Denies weakness Endo Denies palpitations Physical Exam Vital Signs: Last Vital Signs Pulse 122 H 12/14/24 14:14 BP 118/52 L 12/14/24 14:14 BMI result Body Mass Index 30.7 Const General: cooperative, healthy appearing, comfortable and no acute distress Orientation/consciousness: patient oriented x3 HEENT Head: Yes normal to inspection Neck Neck: Yes normal visual inspection, Yes trachea midline and Yes supple Chest Chest palpation & inspection: normal inspection of the chest Resp Effort & Inspection: normal respiratory effort Auscultation: clear to auscultation bilaterally, no crackles, no rales, no rhonchi and no wheezes Cardio Jugular venous distension: no JVD Palpation: normal PMI Rate: tachycardic Rhythm: regular rhythm Heart sounds: S1 normal heart sound present, S2 normal heart sound present, no click, no gallops, no murmurs and no rubs Peripheral pulses: Peripheral pulses 2+ throughout GI Inspection: Yes normal to inspection Palpation (GI): Soft to palpation Auscultation: normal bowel sounds Skin General skin exam: no rashes or lesions noted Neuro General: patient oriented x3 Extrem General: Yes normal to inspection, No no pedal edema and No calf tenderness Psych Appearance: grossly normal Mental Status: mental status grossly normal Speech and movement: Normal speech and movement present Office Procedures EKG Details: EKG today showed sinus tachycardia, rate 112 beats per minute, nonspecific ST-T wave, can not rule out inferior infarct, normal [place], [place]. [id number], Complete Assessment & Plan Assessment & Plan (1) Chest pain: Code(s): R07.9 - Chest pain, unspecified Category: Medical (2) Heart palpitations: Code(s): R00.2 - Palpitations Category: Medical Plan EKG today shows sinus tachycardia at 122 beats per minute. Patient states that his heart rate generally runs high. Advised adequate hydration and complete abstinence from alcohol and nicotine use. Patient verbalizes understanding and is in the path of slowly quitting this. Given his long sinus tachycardia, we will get a echocardiogram to look for LV systolic and diastolic dysfunction as well as wall motion abnormality. Given his ongoing chest discomfort, we will get a stress echocardiogram to look for ischemic changes. We will also get a Holter to assess for potential arrhythmias given his reports of palpitations. Further treatment based on findings. Blood pressure within normal limits. Advised on heart healthy diet, regular exercise, adequate hydration, avoiding caffeinated beverages, abstinence from alcohol and nicotine use, med compliance, and management of vascular risk factors. Follow up after completion of the test. In the interim, patient will call the office with any concerns or change in symptoms. Advised to seek ER care in case of exertional chest pain not resolved with rest. This note was generated using voice recognition software. While every effort has been made to ensure accuracy and proper management specialist, there may be occasional errors that could affect the content or meaning of the described symptoms. Orders: Orders AMB EKG-In Office Today R07.9 - Chest pain, unspecified CA echo stress exercise Today R00.2 - Palpitations, R07.9 - Chest pain, unspecified CA echo transthoracic complete Today R00.2 - Palpitations, R07.9 - Chest pain, unspecified ECG 3 day holter monitor Today R07.9 - Chest pain, unspecified Coding Level of Care Code Est Pt Level 4 (20144) Complex EM visit Add On G2211 Diagnoses Chest pain R07.9 Heart palpitations R00.2 CPT Codes EKG - CPT: 83655-[id number], Complete ([id number]) Time Spent (min) 33 Comment Time spent in reviewing the chart, test results, assessment, counseling and documentation.
--- OUTSIDE RECORDS SUMMARY | 2024-12-14 15:06 | XMS_ITS | Encounter Summary ---
Author Organization [facility] Address [address] [place] [address] Care Team Providers Care Biologist Name Role Phone Inna Giron Primary Care Provider Senia Tovar MD Primary Care Provider [phone] Reason for Visit * Reason Comments Medication Refill Encounter Details Date Type Department Care Team (Late st Contact Info) Description 01/07/2021 Refill [facility] Gastroenterology, [place] [address] [place] [address] Nohelia Medrano MD [address] [place] [address] Generalized abdominal pain Social History Tobacco Use [...] generalized documented in this encounter Care Teams Biologist Relationship Specialty Start Date End Date Inna Giron PA [address] [place] [address] [address] [place] [address] PCP - General Physician Travel Coordinator 04/01/20 07/06/21 Senia Tovar MD [address] [place] [address] [place] [address] PCP - General General Pediatrics 07/07/21 documented as of this encounter
--- OUTSIDE RECORDS SUMMARY | 2024-12-14 15:06 | XMS_ITS | Encounter Summary ---
Author Organization [address] [address] Care Team Providers Care Lens Marker Name Role Phone Senia Tovar MD Primary Care Provider [phone] Reason for Visit * Reason Comments Medication Refill Encounter Details Date Type Department Care Team ([facility] st Contact Info) Description 11/27/2021 Refill [facility] Gastroenterology[address] [address] Nohelia Medrano MD [address] [place] [phone] Generalized abdominal pain Social History Tobacco Use [...] did not know. He was very confused. Supervisor Uranium Processing read him the office visit plan to [...] generalized documented in this encounter Care Teams Lens Marker Relationship Specialty Start Date End Date Senia Tovar MD [address] [place] [address] [place] [address] PCP - General General Pediatrics 07/07/21 documented as of this encounter
--- OUTSIDE RECORDS SUMMARY | 2024-12-14 15:06 | XMS_ITS | Encounter Summary ---
Author Organization [facility] Address [address] [place] [address] Care Team Providers Care Slot Service Specialist Name Role Phone Inna Giron Primary Care Provider [phone] Senia Tovar MD Primary Care Provider [phone] Reason for Visit * Reason Comments Medication Refill Encounter Details Date Type Department Care Team (Late st Contact Info) Description 05/15/2020 Refill [facility] Gastroenterology, [place] [address] [place] [address] Nohelia Medrano MD [address] [place] [address] Generalized abdominal pain Social History Tobacco Use [...] generalized documented in this encounter Care Teams Slot Service Specialist Relationship Specialty Start Date End Date Inna Giron PA [address] [place] [address] [address] [place] [address] PCP - General Physician Deputy Director Of Finance 04/01/20 07/06/21 Senia Tovar MD [address] [place] [address] [address] [place] [address] PCP - General General Pediatrics 07/07/21 documented as of this encounter
--- OUTSIDE RECORDS SUMMARY | 2024-12-14 15:06 | XMS_ITS | Encounter Summary ---
Author Organization [facility] Address [address] [place] [address] Care Team Providers Care Philosophy Instructor Name Role Phone Inna Giron Primary Care Provider [phone] Senia Tovar MD Primary Care Provider [phone] Reason for Visit * Reason Comments Medication Refill Encounter Details Date Type Department Care Team (Late st Contact Info) Description 12/10/2020 [facility] [address] [place] [address] Nohelia Medrano MD [address] [place] [address] Generalized abdominal pain Social History Tobacco Use [...] generalized documented in this encounter Care Teams Philosophy Instructor Relationship Specialty Start Date End Date Inna Giron PA [address] [place] [address] [address] GRE[address] Jillian [place] [address] PCP - General Physician Body Repairer 04/01/20 07/06/21 Senia Tovar MD [address] [place] [address] [address] Jillian [place] [address] PCP - General General Pediatrics 07/07/21 documented as of this encounter
--- OUTSIDE RECORDS SUMMARY | 2024-12-14 15:06 | XMS_ITS | Encounter Summary ---
Author Organization [facility] Address [address] [place] [address] Care Team Providers Care Secondary Special Education Teacher Name Role Phone Inna Giron Primary Care Provider [phone] Senia Tovar MD Primary Care Provider [phone] Reason for Visit * Reason Comments Medication Refill Encounter Details Date Type Department Care Team (Late st Contact Info) Description 07/03/2020 Refill [facility] Gastroenterology, [place] [address] [place] [address] Nohelia Medrano MD [address] [place] [address] Generalized abdominal pain Social History Tobacco Use [...] generalized documented in this encounter Care Teams Secondary Special Education Teacher Relationship Specialty Start Date End Date Inna Giron PA [address] [place] [address] [place] [address] PCP - General Physician Embedded Software Developer 04/01/20 07/06/21 Senia Tovar MD [address] [place] [address] [place] [address] PCP - General General Pediatrics 07/07/21 documented as of this encounter
--- OUTSIDE RECORDS SUMMARY | 2024-12-14 15:06 | XMS_ITS | Encounter Summary ---
Author Organization [facility] Address [address] [place] [address] Care Team Providers Care Lead Sustainability Specialist Name Role Phone Inna Giron Primary Care Provider [phone] Senia Tovar MD Primary Care Provider [phone] Reason for Visit * Reason Comments Medication Refill Encounter Details Date Type Department Care Team (Late st Contact Info) Description 09/02/2020 Refill [facility] Gastroenterology, [place] [address] [place] [address] Nohelia Medrano MD [address] [place] [address] Generalized abdominal pain Social History Tobacco Use [...] generalized documented in this encounter Care Teams Lead Sustainability Specialist Relationship Specialty Start Date End Date Inna Giron PA [address] [place] [address] [address] [place] [address] PCP - General Physician Supervisory Training Specialist 04/01/20 07/06/21 Senia Tovar MD [address] [place] [address] [place] [address] PCP - General General Pediatrics 07/07/21 documented as of this encounter
--- OUTSIDE RECORDS SUMMARY | 2024-12-14 15:06 | XMS_ITS | Encounter Summary ---
Author Organization [facility] Address [address] [place] [address] Care Team Providers Care Manager Program Management Name Role Phone Inna Giron Primary Care Provider [phone] Senia Tovar MD Primary Care Provider [phone] Reason for Visit * Reason Comments Medication Refill Encounter Details Date Type Department Care Team (Late st Contact Info) Description 04/05/2021 Refill [facility] Gastroenterology, [place] [address] [place] [address] Nohelia Medrano MD [address] [place] [address] Generalized abdominal pain Social History Tobacco Use [...] documented in this encounter Care Teams Manager Program Management Relationship Specialty Start Date End Date Inna Giron PA [address] [place] [address] [place] [address] PCP - General Physician Bedspread Folder 04/01/20 07/06/21 Senia Tovar MD [address] [place] [address] [place] [address] PCP - General General Pediatrics 07/07/21 documented as of this encounter
--- OUTSIDE RECORDS SUMMARY | 2024-12-14 15:06 | XMS_ITS | Encounter Summary ---
Author Organization [facility] Address [address] [place] [address] Care Team Providers Care Postal Mail Carrier Name Role Phone Senia Tovar MD Primary Care Provider [phone] Reason for Visit * Reason Comments Medication Refill Encounter Details Date Type Department Care Team (Late st Contact Info) Description 11/30/2021 Refill [facility] Gastroenterology, [place] [address] [place] [address] Nohelia Medrano MD [address] [place] [address] Generalized abdominal pain Social History Tobacco Use [...] generalized documented in this encounter Care Teams Postal Mail Carrier Relationship Specialty Start Date End Date Senia Tovar MD [address] [place] [address] [place] [address] PCP - General General Pediatrics 07/07/21 documented as of this encounter
--- OUTSIDE RECORDS SUMMARY | 2024-12-14 15:06 | XMS_ITS | Encounter Summary ---
Author Organization [facility] Address [address] [place] [address] Care Team Providers Care Nursing Associate Name Role Phone Senia Tovar MD Primary Care Provider [phone] Reason for Visit * Reason Comments Medication Refill Encounter Details Date Type Department Care Team (Late st Contact Info) Description 07/26/2021 Refill [facility] Gastroenterology, [place] [address] [place] [address] Nohelia Medrano MD [address] [place] [address] Generalized abdominal pain Social History Tobacco Use [...] generalized documented in this encounter Care Teams Nursing Associate Relationship Specialty Start Date End Date Senia Tovar MD [address] [place] [address] [place] [address] PCP - General General Pediatrics 07/07/21 documented as of this encounter
--- OUTSIDE RECORDS SUMMARY | 2024-12-14 15:06 | XMS_ITS | Encounter Summary ---
Author Organization [facility] Address [address] [place] [address] Care Team Providers Care Electron Beam Welder Name Role Phone Inna Giron Primary Care Provider [phone] Senia Tovar MD Primary Care Provider [phone] Reason for Visit * Reason Comments Medication Refill Encounter Details Date Type Department Care Team (Late st Contact Info) Description 10/08/2020 Refill [facility] Gastroenterology, [place] [address] [place] [address] Nohelia Medrano MD [address] [place] [address] Generalized abdominal pain Social History Tobacco Use [...] generalized documented in this encounter Care Teams Electron Beam Welder Relationship Specialty Start Date End Date Inna Giron PA [address] [place] [address] [place] [address] PCP - General Physician Gantry Rigger 04/01/20 07/06/21 Senia Tovar MD [address] [place] [address] [place] [address] PCP - General General Pediatrics 07/07/21 documented as of this encounter
--- OUTSIDE RECORDS SUMMARY | 2024-12-14 15:06 | XMS_ITS | Encounter Summary ---
Author Organization [facility] Address [address] [place] [address] Care Team Providers Care Business Education Teacher Name Role Phone Senia Tovar MD Primary Care Provider [phone] Reason for Visit * Reason Comments Medication Refill Encounter Details Date Type Department Care Team ([facility] st Contact Info) Description 09/09/2021 Refill [facility] [address]astroenter[address] [address] Nohelia Medrano MD [address] [place] [address] Generalized abdominal pain Social History Tobacco Use [...] documented in this encounter Care Teams Business Education Teacher Relationship Specialty Start Date End Date Senia Tovar MD [address] [place] [address] [address] [place], [place] [address] PCP - General General Pediatrics 07/07/21 documented as of this encounter
--- OUTSIDE RECORDS SUMMARY | 2024-12-14 15:06 | XMS_ITS | Encounter Summary ---
Author Organization [facility] Address [address] [place] [address] Care Team Providers Care Pony Roll Finisher Name Role Phone Inna Giron Primary Care Provider [phone] Senia Tovar MD Primary Care Provider [phone] Reason for Visit * Reason Comments Medication Refill Encounter Details Date Type Department Care Team (Late st Contact Info) Description 06/20/2020 Refill [facility] Gastroenterology, [place] [address] [place] [address] Nohelia Medrano MD [address] [place] [address] Generalized abdominal pain Social History Tobacco Use [...] generalized documented in this encounter Care Teams Pony Roll Finisher Relationship Specialty Start Date End Date Inna Giron PA [address] [place] [address] [address] [place] [id number] PCP - General Physician Grades 1 Through 5 Teacher 04/01/20 07/06/21 Senia Tovar MD [address] [place] [address] [place] [address] PCP - General General Pediatrics 07/07/21 documented as of this encounter
--- OUTSIDE RECORDS SUMMARY | 2024-12-14 15:06 | XMS_ITS | Encounter Summary ---
Author Organization [facility] Address [address] [place] [address] Care Team Providers Care Design Analyst Name Role Phone Inna Giron Primary Care Provider Senia Tovar MD Primary Care Provider [phone] Reason for Visit * Reason Comments Medication Refill Encounter Details Date Type Department Care Team (Late st Contact Info) Description 11/11/2020 Refill [facility] Gastroenterology, [place] [address] [place] [address] Nohelia Medrano MD [address] [place] [address] Generalized abdominal pain Social History Tobacco Use [...] generalized documented in this encounter Care Teams Design Analyst Relationship Specialty Start Date End Date Inna Giron PA [address] [place] [address] [address] [place] [address] PCP - General Physician Tai Chi Instructor 04/01/20 07/06/21 Senia Tovar MD [address] [place] [address] [place] [address] PCP - General General Pediatrics 07/07/21 documented as of this encounter
--- OUTSIDE RECORDS SUMMARY | 2024-12-14 15:06 | XMS_ITS | Clinical Summary ---
Author Organization [facility] Address [address] [place] [address] Care Team Providers Care Hall Cleaner Name Role Phone Senia Tovar MD Primary Care Provider [phone] Source Comments Please note that some or [...] (06/30/2021): Added automatically from request for surgery [id number] Family History Medical History Relation Name Comments [...] patient's age to complete this topic Insurance [employer] Care Teams Hall Cleaner Relationship Specialty Start Date End Date Senia Tovar MD [address] [place] [address] [place] [address] PCP - General General Pediatrics 07/07/21
== END 2024-12-14 14:58 | disposition home or self-care (01) ==
LOC: HO.HCS 13:59
PROVIDERS: PCP Family Medicine
DX: R07.9 Chest pain, unspecified (principal); R00.2 Palpitations
CPT/HCPCS: 93010; 99214

== ENCOUNTER → 2024-12-14 13:58 | Outpatient (BNVA) | payer OTHER, SELFPAY | PROVIDERS: PCP Family Medicine | DX: R07.9 Chest pain, unspecified (principal); R00.2 Palpitations; R94.31 Abnormal electrocardiogram [ECG] [EKG]; R00.0 Tachycardia, unspecified | CPT/HCPCS: 93005; 99212 ==

== ENCOUNTER 2025-01-07 10:53 | Outpatient (AMB) | payer OTHER, SELFPAY ==
--- NOTE | 2025-01-07 11:08 | MHC.OFFVIS ---
Vital Signs 01/07/25 11:26 Height 5 ft 5 in Weight 194 lb BMI 32.3 Pulse 102 H Pulse Source Pulse Oximeter Pulse Oximetry (%) 99 Intake Visit Reasons: MAT Allergies banana Allergy (Severe, Verified 01/07/25 11:27) Anaphylaxis aspirin (ASA) Allergy (Intermediate, Verified 01/07/25 11:27) Swelling avocado Allergy (Intermediate, Verified 01/07/25 11:27) Swelling gluten Allergy (Intermediate, Verified 01/07/25 11:27) Abdominal Pain ibuprofen (IBUPROFEN) Allergy (Intermediate, Verified 01/07/25 11:27) ABD PAIN AND REFLUX lactose Allergy (Intermediate, Verified 01/07/25 11:27) Abdominal Pain house dust Allergy (Unknown, Verified 01/07/25 11:27) Unknown venlafaxine Adverse Reaction (Mild, Verified 01/07/25 11:27) vomiting, disorintation seasonal Allergy (Unknown, Uncoded 11/26/24 11:05) unknown HPI Comments Details: History of Present Illness The patient is a 24-year-old male presenting with ongoing management of opioid use disorder and alcohol use disorder. Currently abstinent from alcohol, the patient is effectively using naltrexone and continues on acamprosate at a dose of 666 mg, taken as two 333 mg doses three times daily (TID), which he reports is efficacious. He does not report any complaints or symptoms related to his substance use disorder management and agrees to the use of [employer] technology for this visit. Review of Systems - Neurological: Denies headaches, dizziness, or seizures. - Psychiatric: Denies depression and anxiety. Physical Exam Results Plan Patient was informed and verbally consented to the use of an ambient scribe for clinic note documentation during this visit. 1. Opioid Use Disorder The patient will maintain his current management strategy with follow-up to monitor his progress, as no additional treatment interventions were discussed. 2. Alcohol use, unspecified, uncomplicated F10.90 The patient continues to stay abstinent from alcohol with the aid of acamprosate 666 mg TID, which is effective. He is also maintained on naltrexone, and we will continue to monitor his status through routine follow-ups. Discussion Notes During our discussion, I reviewed the treatment options and ongoing management strategies for both opioid and alcohol use disorder. The patient expressed contentment with the effectiveness of acamprosate in his regimen and confirmed his abstinent state from alcohol. It is crucial for follow-up appointments to continue to ensure that his current management strategies remain effective and to make adjustments as needed to support his recovery journey. Medical Decision Making In evaluating this patient, I considered the current efficacy of the prescribed regimen for his alcohol use disorder as indicated by his abstinence and lack of additional complaints. Given the successful management with acamprosate and naltrexone, I plan to maintain this strategy while ensuring any needed modifications are addressed in future visits based on documented progress and assessments. Patient Instructions - Continue taking acamprosate as prescribed. - Keep taking naltrexone as part of your treatment plan. - Remain abstinent from alcohol. - Follow up as scheduled to monitor your progress. [facility] Medical History (Updated 12/14/24 @ 14:41 by Merritt Patterson NP) Nausea Internal hemorrhoid Suicidal ideation Palpitations Fibromyalgia Sleep apnea IBS (irritable bowel syndrome) Asthma ETOH abuse Dizziness Atopic dermatitis Hypersomnolence Difficulty sleeping Pain in right hip Balanitis Adjustment reaction with mixed disturbance of emotions and conduct Depression Acid reflux Anxiety Constipation Surgical History Hx of colonoscopy (~11/26/24) H/O endoscopy Family History Mother Anxiety Depression Maternal Grandfather Substance abuse Maternal Grandmother Anxiety Depression Father Arthritis Social History Household Members: Family Housing: House Do you presently have visiting nurse or other home services: No Alcohol intake: current Alcohol intake frequency: 3 or more drinks per day Alcohol type: hard liquor Comment: every day Patient Tobacco Use Status: Current everyday Tobacco user Tobacco use type: Cigarette Cigarette Packs Per Day: 0 Cigarettes Per Day: 0 e-Cigarette/Vaping Use: Currently Using Second Hand Smoke Exposure: No Substance Use Type: Marijuana service: No Current occupational status: employed 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
[2025-01-07 11:26] VITALS: PULSE 102; O2SAT 99; BMI 32.3
--- NOTE | 2025-01-07 12:00 | AM.OFFVISNUR ---
Vital Signs 01/07/25 11:26 Height 5 ft 5 in Weight 87.997 kg BMI 32.3 Pulse 102 H Pulse Source Pulse Oximeter Pulse Oximetry (%) 99 Intake Visit Reasons: MAT Allergies banana Allergy (Severe, Verified 01/07/25 11:27) Anaphylaxis aspirin (ASA) Allergy (Intermediate, Verified 01/07/25 11:27) Swelling avocado Allergy (Intermediate, Verified 01/07/25 11:27) Swelling gluten Allergy (Intermediate, Verified 01/07/25 11:27) Abdominal Pain ibuprofen (IBUPROFEN) Allergy (Intermediate, Verified 01/07/25 11:27) ABD PAIN AND REFLUX lactose Allergy (Intermediate, Verified 01/07/25 11:27) Abdominal Pain house dust Allergy (Unknown, Verified 01/07/25 11:27) Unknown venlafaxine Adverse Reaction (Mild, Verified 01/07/25 11:27) vomiting, disorintation seasonal Allergy (Unknown, Uncoded 11/26/24 11:05) unknown Coding
== END 2025-01-07 12:03 | disposition home or self-care (01) ==
PROVIDERS: PCP Family Medicine; Visit Provider Internal Medicine
DX: F10.90 Alcohol use, unspecified, uncomplicated (principal)
CPT/HCPCS: 99213

== ENCOUNTER → 2025-01-07 10:53 | Outpatient (BNVA) | payer OTHER, SELFPAY | PROVIDERS: PCP Family Medicine; Visit Provider Internal Medicine | DX: F11.20 Opioid dependence, uncomplicated (principal); F10.90 Alcohol use, unspecified, uncomplicated; Z79.899 Other long term (current) drug therapy | CPT/HCPCS: 99212 ==

== ENCOUNTER → 2025-02-07 07:59 | Outpatient (REF) | payer OTHER, SELFPAY ==
--- NOTE | 2025-02-07 08:04 | HM_ITS ---
* Total monitoring time 3 days. * Underlying rhythm is sinus with an average rate of 92/Min. * Rare ventricular ectopy. * No significant pauses or high-grade AV blocks. * Shortness of breath, palpitations, chest discomfort in patient diary correlates with sinus tachycardia. MTDD
--- NOTE | 2025-02-07 08:04 | CA_ITS ---
Transthoracic Echocardiogram Patient (Last, First, Middle): Jaya Mckeon N Gender: Male Date of : 2000 Age: 24 Procedure Date: 02/07/2025 Procedure Type: Transthoracic Echocardiogram Location: OP Height: 165.1 cm Weight: 88. kg BSA: 1.95 m2 Heart Rate: 67 bpm BP: 117 / 80 mmHg Unit Control Clerk: TO Referring MD: Merritt Patterson COMSEC MANAGER Symptoms: R00.2 - Palpitations Study Quality: Adequate ECG Rhythm: Sinus Conclusions: - The left ventricular systolic function is low normal. The calculated ejection fraction is 52% by biplane method. - No obvious valvular pathology seen on this study. Findings Left Ventricle Mildly increased left ventricular cavity size. There is normal left ventricular wall thickness. The left ventricular systolic function is low normal. The calculated ejection fraction is 52% by biplane method. There is no evidence of regional wall motion abnormalities. Diastolic function is normal for age. Right Ventricle Normal right ventricular cavity size and systolic function. Atria Both atria are normal in size. Aortic Valve There is a normal trileaflet aortic valve. There is no aortic valve stenosis. There is no aortic valve regurgitation. Mitral Valve The mitral valve appears normal. There is no mitral valve regurgitation. There is no mitral valve stenosis. Pulmonic Valve The pulmonic valve is likely normal. Tricuspid Valve There is trace tricuspid valve regurgitation. There is no evidence of pulmonary hypertension. Great Vessels The asc aorta is normal in size. Venous The inferior vena cava is normal in size and collapses greater than 50% with inspiration. Pericardium/Pleural There is no evidence of pericardial effusion. Prior Study Comparison No prior study available for comparison. Recommendations, Care & Conclusions No obvious valvular pathology seen on this study. Measurements 2D Linear Measurements IVSd: 0.70 0.6-0.9/0.6-1.0 cm LVIDd: 5.57 3.9-5.3/4.2-5.9 cm LVIDd Index: 2.86 2.4-3.2/2.2-3.1 cm/m2 LVIDs: 3.97 2.0-3.6 cm LVPWd: 0.79 0.7-1.1 cm LA Diam: 3.70 2.7-3.8/3.0-4.0 cm LAIDs Index: 1.90 1.5-2.3 cm/m2 LV Mass: 186.25 67-162/88-224 g LV Mass Index: 95.51 43-95/49-115 g/m2 LVOT Diam: 2.20 3.0+(-)1.3 cm 2D Systolic Function EF 4C: 50.20 >55% EF 2C: 56.50 >55% EF BiP: 52.30 >55% Mitral Valve MV Pk E: 0.96 MV PK A: 0.42 MV Decel Time: 175.00 E/A: 2.30 E'Lateral: 11.90 E'Medial: 10.20 E/E' Med: 9.40 E/E' Lat: 8.00 PHT: 51.00 MVA PHT: 4.31 Decel [place]: 5.45 Aortic Valve AoV Pk John Paul: 1.62 AoV Mn John Paul: 1.00 AoV VTI: 0.29 AoV Pk Grad: 10.00 Aov Mn Grad: 5.00 NICKY Cont.VTI: 2.39 LVOT LVOT Pk John Paul: 1.00 LVOT Mn John Paul: 0.67 LVOT VTI: 0.18 LVOT Pk Grad: 4.00 LVOT Mn Grad: 2.00 LVOT Diam: 2.20 LVOT Area: 3.80 Diastolic Function MV Pk E: 0.96 MV Pk A: 0.42 E/A: 2.30 E'Medial: 10.20 E/E' Med: 9.40 E' Laterial: 11.90 E/E' Lat: 8.00 Right Ventricle TAPSE (mm): 18.70 TVS' John Paul: 13.30 Tricuspid Valve TR Pk John Paul: 1.67 TR Pk Grad: 11.00 RA Press: 3.00 RVSP: 14.00 Great Vessels Aorta Sinus of Valsalva: 2.61 2.0-3.5 cm Ao Asc: 2.30 2.1-3.4 cm Updated in Other Vendor System with Status of Final Miguel Angel Maher MD electronically signed on 02/09/2025 10:50:35 AM with status of Final
--- OUTSIDE RECORDS SUMMARY | 2025-02-07 08:17 | XMS_ITS | Encounter Summary ---
Author Organization [facility] Address [address] [place] [address] Care Team Providers Care Technician Assistant Name Role Phone Senia Tovar MD Primary Care Provider [phone] Reason for Visit * Reason Comments Medication Refill Encounter Details Date Type Department Care Team (Late st Contact Info) Description 11/30/2021 Refill [facility] Gastroenterology, [place] [address] [place] [address] Nohelia Medrano MD [address] [place] [address] Generalized abdominal pain Social History Tobacco Use [...] generalized documented in this encounter Care Teams Technician Assistant Relationship Specialty Start Date End Date Senia Tovar MD [address] [place] [address] [place] [address] PCP - General General Pediatrics 07/07/21 documented as of this encounter
--- OUTSIDE RECORDS SUMMARY | 2025-02-07 08:17 | XMS_ITS | Encounter Summary ---
Author Organization [facility] Address [address] [place] [address] Care Team Providers Care Supervisor Continuous Weld Pipe Mill Name Role Phone Inna Giron Primary Care Provider [phone] Senia Tovar MD Primary Care Provider [phone] Reason for Visit * Reason Comments Medication Refill Encounter Details Date Type Department Care Team (Late st Contact Info) Description 07/03/2020 Refill [facility] Gastroenterology, [place] [address] [place] [address] Nohelia Medrano MD [address] [place] [address] Generalized abdominal pain Social History Tobacco Use [...] generalized documented in this encounter Care Teams Supervisor Continuous Weld Pipe Mill Relationship Specialty Start Date End Date Inna Giron PA [address] [place] [address] [place] [address] PCP - General Physician Supervisor Dumping 04/01/20 07/06/21 Senia Tovar MD [address] [place] [address] [place] [address] PCP - General General Pediatrics 07/07/21 documented as of this encounter
--- OUTSIDE RECORDS SUMMARY | 2025-02-07 08:17 | XMS_ITS | Encounter Summary ---
Author Organization [facility] Address [address] [place] [address] Care Team Providers Care Manager Medical Device Name Role Phone Inna Giron Primary Care Provider [phone] Senia oTvar MD Primary Care Provider [phone] Reason for Visit * Reason Comments Medication Refill Encounter Details Date Type Department Care Team (Late st Contact Info) Description 01/07/2021 Refill [facility] Gastroenterology, [place] [address] [place] [address] Nohelia Medrano MD [address] [place] [address] Generalized abdominal pain Social History Tobacco Use [...] documented in this encounter Care Teams Manager Medical Device Relationship Specialty Start Date End Date Inna Giron PA [address] [place] [address] [address] [place] [address] PCP - General Physician Instantizer Operator 04/01/20 07/06/21 Senia Tovar MD [address] [place] [address] [place] [address] PCP - General General Pediatrics 07/07/21 documented as of this encounter
--- OUTSIDE RECORDS SUMMARY | 2025-02-07 08:17 | XMS_ITS | Encounter Summary ---
Author Organization [facility] Address [address] [place] [address] Care Team Providers Care Corporate Webmaster Name Role Phone Inna Giron Primary Care Provider [phone] Senia Tovar MD Primary Care Provider [phone] Reason for Visit * Reason Comments Medication Refill Encounter Details Date Type Department Care Team (Late st Contact Info) Description 09/02/2020 Refill [facility] Gastroenterology, [place] [address] [place] [address] Nohelia Medrano MD [address] [place] [address] Generalized abdominal pain Social History Tobacco Use [...] documented in this encounter Care Teams Corporate Webmaster Relationship Specialty Start Date End Date Inna Giron PA [address] [place] [address] [address] [place] [address] PCP - General Physician Cut Out Press Operator 04/01/20 07/06/21 Senia Tovar MD [address] [place] [address] [place] [address] PCP - General General Pediatrics 07/07/21 documented as of this encounter
--- OUTSIDE RECORDS SUMMARY | 2025-02-07 08:17 | XMS_ITS | Clinical Summary ---
Author Organization [facility] Address [address] [place] [address] Care Team Providers Care Member Of Congress Name Role Phone Senia Tovar MD Primary Care Provider [phone] Source Comments Please note that some or [...] so, obtain the minor's consent prior to disclosure.[facility] Allergies Active Allergy Reactions Criticality Noted [...] (06/30/2021): Added automatically from request for surgery [id number] Family History Medical History Relation Name Comments [...] patient's age to complete this topic Insurance [facility] PLAN Care Teams Member Of Congress Relationship Specialty Start Date End Date Senia Tovar MD [address] [place] [address] [place] [address] PCP - General General Pediatrics 07/07/21
--- OUTSIDE RECORDS SUMMARY | 2025-02-07 08:17 | XMS_ITS | Encounter Summary ---
Author Organization [facility] Address [address] [place] [address] Care Team Providers Care Police Chief Deputy Name Role Phone Senia Tovar MD Primary Care Provider [phone] Reason for Visit * Reason Comments Medication Refill Encounter Details Date Type Department Care Team (Late st Contact Info) Description 07/26/2021 Refill [facility] Gastroenterology, [place] [address] [place] [address] Nohelia Medrano MD [address] [place] [address] Generalized abdominal pain Social History Tobacco Use [...] generalized documented in this encounter Care Teams Police Chief Deputy Relationship Specialty Start Date End Date Senia Tovar MD [address] [place] [address] [place] [address] PCP - General General Pediatrics 07/07/21 documented as of this encounter
--- OUTSIDE RECORDS SUMMARY | 2025-02-07 08:17 | XMS_ITS | Encounter Summary ---
Author Organization [facility] Address [address] [place] [address] Care Team Providers Care Process Plant Operator Name Role Phone Inna Giron Primary Care Provider [phone] Senia Tovar MD Primary Care Provider [phone] Reason for Visit * Reason Comments Medication Refill Encounter Details Date Type Department Care Team (Late st Contact Info) Description 05/15/2020 Refill [facility] Gastroenterology, [place] 84 [place] [address] Nohelia Medrano MD [address] [place] [address] Generalized abdominal pain Social History Tobacco Use [...] generalized documented in this encounter Care Teams Process Plant Operator Relationship Specialty Start Date End Date Inna Giron PA [address] [place] [address] [address] [place] [address] PCP - General Physician Operations Officer Trust Department 04/01/20 07/06/21 Senia Tovar MD [address] [place] [address] [address] [place] [address] PCP - General General Pediatrics 07/07/21 documented as of this encounter
--- OUTSIDE RECORDS SUMMARY | 2025-02-07 08:17 | XMS_ITS | Encounter Summary ---
Author Organization [address] [address] Care Team Providers Care Director Client Services Name Role Phone Senia Tovar MD Primary Care Provider [phone] Reason for Visit * Reason Comments Medication Refill Encounter Details Date Type Department Care Team ([facility] st Contact Info) Description 11/27/2021 Refill [facility] [address]astroenter[address] [address] Nohelia Medrano MD [address] [place] [address] Generalized abdominal pain Social History Tobacco Use [...] did not know. He was very confused. Safe Deposit Clerk read him the office visit plan [...] generalized documented in this encounter Care Teams Director Client Services Relationship Specialty Start Date End Date Senia Tovar MD [address] [place] [address] [place] [address] PCP - General General Pediatrics 07/07/21 documented as of this encounter
--- OUTSIDE RECORDS SUMMARY | 2025-02-07 08:17 | XMS_ITS | Encounter Summary ---
Author Organization [facility] Address [address] [place] [address] Care Team Providers Care Delivery Assistant Name Role Phone Inna Giron Primary Care Provider [phone] Senia Tovar MD Primary Care Provider [phone] Reason for Visit * Reason Comments Medication Refill Encounter Details Date Type Department Care Team (Late st Contact Info) Description 10/08/2020 Refill [facility] Gastroenterology, [place] [address] [place] [address] Nohelia Medrano MD [address] [place] [address] Generalized abdominal pain Social History Tobacco Use [...] generalized documented in this encounter Care Teams Delivery Assistant Relationship Specialty Start Date End Date Inna Giron PA [address] [place] [address] [place] [address] PCP - General Physician Remelt Furnace Expediter 04/01/20 07/06/21 Senia Tovar MD [address] [place] [address] [place] [address] PCP - General General Pediatrics 07/07/21 documented as of this encounter
--- OUTSIDE RECORDS SUMMARY | 2025-02-07 08:17 | XMS_ITS | Encounter Summary ---
Author Organization [facility] Address [address] [place] [address] Care Team Providers Care Plywood Stock Grader Name Role Phone Inna Giron Primary Care Provider [phone] Senia Tovar MD Primary Care Provider [phone] Reason for Visit * Reason Comments Medication Refill Encounter Details Date Type Department Care Team (Late st Contact Info) Description 06/20/2020 Refill [facility] Gastroenterology, [place] [address] [place] [address] Nohelia Medrano MD [address] [place] [address] Generalized abdominal pain Social History Tobacco Use [...] generalized documented in this encounter Care Teams Plywood Stock Grader Relationship Specialty Start Date End Date Inna Giron PA [address] [place] [address] [address] [place] [address] PCP - General Physician Rubber Press Tender 04/01/20 07/06/21 Senia Tovar MD [address] [place] [address] [place] [address] PCP - General General Pediatrics 07/07/21 documented as of this encounter
--- OUTSIDE RECORDS SUMMARY | 2025-02-07 08:17 | XMS_ITS | Encounter Summary ---
Author Organization [facility] Address [address] [place] [address] Care Team Providers Care Plant Manager Name Role Phone Inna Giron Primary Care Provider [phone] Senia Tovar MD Primary Care Provider [phone] Reason for Visit * Reason Comments Medication Refill Encounter Details Date Type Department Care Team (Late st Contact Info) Description 04/05/2021 Refill [facility] Gastroenterology, [place] [address] [place] [address] Nohelia Medrano MD [address] [place] [address] Generalized abdominal pain Social History Tobacco Use [...] documented in this encounter Care Teams Plant Manager Relationship Specialty Start Date End Date Inna Giron PA [address] [place] [address] [place] [address] PCP - General Physician Hand Quilter 04/01/20 07/06/21 Senia Tovar MD [address] [place] [address] [place] [address] PCP - General General Pediatrics 07/07/21 documented as of this encounter
--- OUTSIDE RECORDS SUMMARY | 2025-02-07 08:17 | XMS_ITS | Encounter Summary ---
Author Organization [facility] Address [address] [place] [address] Care Team Providers Care Pattern Developer Name Role Phone Inna Giron Primary Care Provider [phone] Senia Tovar MD Primary Care Provider [phone] Reason for Visit * Reason Comments Medication Refill Encounter Details Date Type Department Care Team (Late st Contact Info) Description 11/11/2020 Refill [facility] Gastroenterology, [place] [address] [place] [address] Nohelia Medrano MD [address] [place] [address] Generalized abdominal pain Social History Tobacco Use [...] generalized documented in this encounter Care Teams Pattern Developer Relationship Specialty Start Date End Date Inna Giron PA [address] [place] [address] [address] [place] [address] PCP - General Physician Lead Java Software Engineer 04/01/20 07/06/21 Senia Tovar MD [address] [place] [address] [place] [address] PCP - General General Pediatrics 07/07/21 documented as of this encounter
--- OUTSIDE RECORDS SUMMARY | 2025-02-07 08:17 | XMS_ITS | Encounter Summary ---
Author Organization [facility] Address [address] [place] [address] Care Team Providers Care Engineering Production Worker Name Role Phone Inna Giron Primary Care Provider [phone] Senia Tovar MD Primary Care Provider [phone] Reason for Visit * Reason Comments Medication Refill Encounter Details Date Type Department Care Team (Late st Contact Info) Description 12/10/2020 Refill [facility] [address] [place] [address] Nohelia Medrano MD [address] [place] [address] Generalized abdominal pain Social History Tobacco Use [...] documented in this encounter Care Teams Engineering Production Worker Relationship Specialty Start Date End Date Inna Giron PA [address] [place] [address] [address] GREENE Jillian [place] [address] PCP - General Physician Sap Integration Architect 04/01/20 07/06/21 Senia Tovar MD [address] [place] [address] [address] Jillian [place] [address] PCP - General General Pediatrics 07/07/21 documented as of this encounter
--- OUTSIDE RECORDS SUMMARY | 2025-02-07 08:17 | XMS_ITS | Encounter Summary ---
Author Organization [facility] Address [address] [place] [address] Care Team Providers Care Pharmacy Technician Infusion Name Role Phone Senia Tovar MD Primary Care Provider [phone] Reason for Visit * Reason Comments Medication Refill Encounter Details Date Type Department Care Team ([facility] st Contact Info) Description 09/09/2021 Refill [facility] Gastroenter[address] [address] Nohelia Medrano MD [address] [place] [address] Generalized abdominal pain Social History Tobacco Use [...] generalized documented in this encounter Care Teams Pharmacy Technician Infusion Relationship Specialty Start Date End Date Senia Tovar MD [address] [place] [address] [address] [place], [place] [address] PCP - General General Pediatrics 07/07/21 documented as of this encounter
== END ==
LOC: HO.CARD 07:59
PROVIDERS: PCP Family Medicine
DX: R00.2 Palpitations (principal); R07.9 Chest pain, unspecified
CPT/HCPCS: 93242; 93306

== ENCOUNTER → 2025-02-07 08:04 | Outpatient (BNV) | payer OTHER, SELFPAY | PROVIDERS: PCP Family Medicine; Visit Provider Internal Medicine | DX: R00.2 Palpitations (principal) | CPT/HCPCS: 93306 ==

== ENCOUNTER 2025-02-13 10:02 | Outpatient (REF) | payer OTHER, SELFPAY ==
--- NOTE | ~2025-02-13 | FL_ITS ---
EXAMINATION: Modified Barium Swallow CLINICAL INFORMATION: Dysphagia, unspecified. COMPARISON: None. TECHNIQUE: Modified barium swallow was performed under lateral fluoroscopy with patient in standing position. Barium mixed with solids and liquids of different consistencies was administered by the speech pathologist. Examination was recorded in the fluoroscopy suite. FINDINGS: The patient was given liquids and solids of different consistencies. There was persistent flash laryngeal penetration on thin liquids without evidence of glottic or subglottic aspiration. Swallow was normal on puree and solids. FLUOROSCOPY TIME: 52 seconds Number of Spot Images: N/A DOSE AREA PRODUCT: 507.5 uGy-m2 (microgray-meter squared) FL/FL Modified Barium Swallow IMPRESSION: 1. Persistent flash penetration on thin liquids without evidence of glottic or subglottic aspiration. Please refer to the full speech therapy report to follow for further details. Electronically signed by: Rajeev Correa MD 02/13/2025 11:33 AM FREYA
--- OUTSIDE RECORDS SUMMARY | 2025-02-13 11:44 | XMS_ITS | Clinical Summary ---
Author Organization [facility] Address [address] [place] [address] Care Team Providers Care Apartment Leasing Specialist Name Role Phone Senia Tovar MD [...] so, obtain the minor's consent prior to disclosure.[facility] Allergies Active Allergy Reactions Criticality Noted [...] (06/30/2021): Added automatically from request for surgery [id number] Family History Medical History Relation Name Comments [...] patient's age to complete this topic Insurance [facility] [place] PLAN Care Teams Apartment Leasing Specialist Relationship Specialty Start Date End Date Senia Tovar MD [address] [place] [address] [place] [address] PCP - General General Pediatrics 07/07/21
--- OUTSIDE RECORDS SUMMARY | 2025-02-13 11:44 | XMS_ITS | Encounter Summary ---
Author Organization [facility] Address [address] [place] [address] Care Team Providers Care Leadership Development Instructor Name Role Phone Senia Tovar MD Primary Care Provider [phone] Reason for Visit * Reason Comments Medication Refill Encounter Details Date Type Department Care Team ([facility] st Contact Info) Description 09/09/2021 Refill [facility] Gastroenter[address] [address] Nohelia Medrano MD [address] [place] [address] Generalized abdominal pain Social History Tobacco Use [...] generalized documented in this encounter Care Teams Leadership Development Instructor Relationship Specialty Start Date End Date Senia Tovar MD [address] [place] [address] [address] [place], [place] [address] PCP - General General Pediatrics 07/07/21 documented as of this encounter
--- OUTSIDE RECORDS SUMMARY | 2025-02-13 11:44 | XMS_ITS | Encounter Summary ---
Author Organization [facility] Address [address] [place] [address] Care Team Providers Care Central Supply Technician Supervisor Name Role Phone Senia Tovar MD Primary Care Provider [phone] Reason for Visit * Reason Comments Medication Refill Encounter Details Date Type Department Care Team (Late st Contact Info) Description 11/30/2021 Refill [facility] Gastroenterology, [place] [address] [place] [address] Nohelia Medrano MD [address] [place] [address] Generalized abdominal pain Social History Tobacco Use [...] generalized documented in this encounter Care Teams Central Supply Technician Supervisor Relationship Specialty Start Date End Date Senia Tovar MD [address] [place] [address] [place] [address] PCP - General General Pediatrics 07/07/21 documented as of this encounter
--- OUTSIDE RECORDS SUMMARY | 2025-02-13 11:44 | XMS_ITS | Encounter Summary ---
Author Organization [address] [address] Care Team Providers Care Entry Level Web Developer Name Role Phone Senia Tovar MD Primary Care Provider [phone] Reason for Visit * Reason Comments Medication Refill Encounter Details Date Type Department Care Team ([facility] st Contact Info) Description 11/27/2021 Refill [facility] Gastroenter[address] [address] Nohelia Medrano MD [address] [place] [address] Generalized abdominal pain Social History Tobacco Use [...] did not know. He was very confused. Tar Heater read him the office visit plan to [...] generalized documented in this encounter Care Teams Entry Level Web Developer Relationship Specialty Start Date End Date Senia Tovar MD [address] [place] [address] [place] [address] PCP - General General Pediatrics 07/07/21 documented as of this encounter
--- OUTSIDE RECORDS SUMMARY | 2025-02-13 11:44 | XMS_ITS | Encounter Summary ---
Author Organization [facility] Address [address] [place] [address] Care Team Providers Care Testing And Regulating Chief Name Role Phone Senia Tovar MD Primary Care Provider [phone] Reason for Visit * Reason Comments Medication Refill Encounter Details Date Type Department Care Team (Late st Contact Info) Description 07/26/2021 Refill [facility] Gastroenterology, [place] [address] [place] [address] Nohelia Medrano MD [address] [place] [address] Generalized abdominal pain Social History Tobacco Use [...] generalized documented in this encounter Care Teams Testing And Regulating Chief Relationship Specialty Start Date End Date Senia Tovar MD [address] [place] [address] [place] [address] PCP - General General Pediatrics 07/07/21 documented as of this encounter
--- OUTSIDE RECORDS SUMMARY | 2025-02-13 11:44 | XMS_ITS | Encounter Summary ---
Author Organization [facility] Address [address] [place] [address] Care Team Providers Care Dance Instructor Name Role Phone Inna Giron Primary Care Provider [phone] Senia Tovar MD Primary Care Provider [phone] Reason for Visit * Reason Comments Medication Refill Encounter Details Date Type Department Care Team (Late st Contact Info) Description 09/02/2020 Refill [facility] Gastroenterology, [place] [address] [place] [address] Nohelia Medrano MD [address] [place] [address] Generalized abdominal pain Social History Tobacco Use [...] generalized documented in this encounter Care Teams Dance Instructor Relationship Specialty Start Date End Date Inna Giron PA [address] [place] [address] [address] [place] [address] PCP - General Physician Stretch Machine Operator 04/01/20 07/06/21 Senia Tovar MD [address] [place] [address] [place] [address] PCP - General General Pediatrics 07/07/21 documented as of this encounter
--- OUTSIDE RECORDS SUMMARY | 2025-02-13 11:44 | XMS_ITS | Encounter Summary ---
Author Organization [facility] Address [address] [place] [address] Care Team Providers Care Director Of Enterprise Architecture Name Role Phone Inna Giron Primary Care Provider [phone] Senia Tovar MD Primary Care Provider [phone] Reason for Visit * Reason Comments Medication Refill Encounter Details Date Type Department Care Team (Late st Contact Info) Description 06/20/2020 Refill [facility] Gastroenterology, [place] 84 [place] [address] Nohelia Medrano MD [address] [place] [address] Generalized abdominal pain Social History Tobacco Use [...] documented in this encounter Care Teams Director Of Enterprise Architecture Relationship Specialty Start Date End Date Inna Giron PA [address] [place] [address] [address] [place] [address] PCP - General Physician Resource Protection Specialist 04/01/20 07/06/21 Senia Tovar MD [address] [place] [address] [place] [address] PCP - General General Pediatrics 07/07/21 documented as of this encounter
--- OUTSIDE RECORDS SUMMARY | 2025-02-13 11:44 | XMS_ITS | Encounter Summary ---
Author Organization [facility] Address [address] [place] [address] Care Team Providers Care Account Solutions Analyst Name Role Phone Inna Giron Primary Care Provider Senia Tovar MD Primary Care Provider [phone] Reason for Visit * Reason Comments Medication Refill Encounter Details Date Type Department Care Team (Late st Contact Info) Description 01/07/2021 Refill [facility] Gastroenterology, [place] [address] [place] [address] Nohelia Medrano MD [address] [place] [address] Generalized abdominal pain Social History Tobacco Use [...] generalized documented in this encounter Care Teams Account Solutions Analyst Relationship Specialty Start Date End Date Inna Giron PA [address] [place] [address] [address] [place] [address] PCP - General Physician Shot Man 04/01/20 07/06/21 Senia Tovar MD [address] [place] [address] [place] [address] PCP - General General Pediatrics 07/07/21 documented as of this encounter
--- OUTSIDE RECORDS SUMMARY | 2025-02-13 11:44 | XMS_ITS | Encounter Summary ---
Author Organization [facility] Address [address] [place] [address] Care Team Providers Care Assembly Riveter Name Role Phone Inna Giron Primary Care Provider [phone] Senia Tovar MD Primary Care Provider [phone] Reason for Visit * Reason Comments Medication Refill Encounter Details Date Type Department Care Team (Late st Contact Info) Description 12/10/2020 [facility]ill [facility] 84 [place] [address] Nohelia Medrano MD [address] [place] [address] Generalized abdominal pain Social History Tobacco Use [...] generalized documented in this encounter Care Teams Assembly Riveter Relationship Specialty Start Date End Date Inna Giron PA [address] [place] [address] [address] Jillian [place] [address] PCP - General Physician Medical Sales Associate 04/01/20 07/06/21 Senia Tovar MD [address] [place] [address] [address] Jillian [place] [address] PCP - General General Pediatrics 07/07/21 documented as of this encounter
--- OUTSIDE RECORDS SUMMARY | 2025-02-13 11:44 | XMS_ITS | Encounter Summary ---
Author Organization [facility] Address [address] [place] [address] Care Team Providers Care Wicker Worker Name Role Phone Inna Giron Primary Care Provider [phone] Senia Tovar MD Primary Care Provider [phone] Reason for Visit * Reason Comments Medication Refill Encounter Details Date Type Department Care Team (Late st Contact Info) Description 05/15/2020 Refill [facility] Gastroenterology, [place] [address] [place] [address] Nohelia Medrano MD [address] [place] [address] Generalized abdominal pain Social History Tobacco Use [...] generalized documented in this encounter Care Teams Wicker Worker Relationship Specialty Start Date End Date Inna Giron PA [address] [place] [address] [address] [place] [address] PCP - General Physician Supervisor Electronics Testing 04/01/20 07/06/21 Senia Tovar MD [address] [place] [address] [address] [place] [address] PCP - General General Pediatrics 07/07/21 documented as of this encounter
--- OUTSIDE RECORDS SUMMARY | 2025-02-13 11:44 | XMS_ITS | Encounter Summary ---
Author Organization [facility] Address [address] [place] [address] Care Team Providers Care Aquatic Instructor Name Role Phone Inna Giron Primary Care Provider [phone] Senia Tovar MD Primary Care Provider [phone] Reason for Visit * Reason Comments Medication Refill Encounter Details Date Type Department Care Team (Late st Contact Info) Description 10/08/2020 Refill [facility] Gastroenterology, [place] [address] [place] [address] Nohelia Medrano MD [address] [place] [address] Generalized abdominal pain Social History Tobacco Use [...] generalized documented in this encounter Care Teams Aquatic Instructor Relationship Specialty Start Date End Date Inna Giron PA [address] [place] [address] [place] [address] PCP - General Physician Mold Maker Plastic Molds 04/01/20 07/06/21 Senia Tovar MD [address] [place] [address] [place] [address] PCP - General General Pediatrics 07/07/21 documented as of this encounter
--- OUTSIDE RECORDS SUMMARY | 2025-02-13 11:44 | XMS_ITS | Encounter Summary ---
Author Organization [facility] Address [address] [place] [address] Care Team Providers Care Harvest Contractor Name Role Phone Inna Giron Primary Care Provider [phone] Senia Tovar MD Primary Care Provider [phone] Reason for Visit * Reason Comments Medication Refill Encounter Details Date Type Department Care Team (Late st Contact Info) Description 11/11/2020 Refill [facility] Gastroenterology, [place] [address] [place] [address] Nohelia Medrano MD [address] [place] [address] Generalized abdominal pain Social History Tobacco Use [...] generalized documented in this encounter Care Teams Harvest Contractor Relationship Specialty Start Date End Date Inna Giron PA [address] [place] [address] [address] [place] [address] PCP - General Physician Chimney Supervisor Brick 04/01/20 07/06/21 Senia Tovar MD [address] [place] [address] [place] [address] PCP - General General Pediatrics 07/07/21 documented as of this encounter
--- OUTSIDE RECORDS SUMMARY | 2025-02-13 11:44 | XMS_ITS | Encounter Summary ---
Author Organization [facility] Address [address] [place] [id number] Care Team Providers Care Aircraft Charter Dispatcher Name Role Phone Inna Giron Primary Care Provider [phone] Senia Tovar MD Primary Care Provider [phone] Reason for Visit * Reason Comments Medication Refill Encounter Details Date Type Department Care Team (Late st Contact Info) Description 07/03/2020 Refill [facility] G[facility], [place] [address] [place] [address] Nohelia Medrano MD [address] [place] [phone] Generalized abdominal pain Social History Tobacco Use [...] generalized documented in this encounter Care Teams Aircraft Charter Dispatcher Relationship Specialty Start Date End Date Inna Giron PA [address] [place] [address] [place] [address] PCP - General Physician Barrel Cleaner 04/01/20 07/06/21 Senia Tovar MD [address] [place] [address] [place] [address] PCP - General General Pediatrics 07/07/21 documented as of this encounter
--- OUTSIDE RECORDS SUMMARY | 2025-02-13 11:44 | XMS_ITS | Encounter Summary ---
Author Organization [facility] Address [address] [place] [id number] Care Team Providers Care Drapery Counselor Name Role Phone Inna Giron Primary Care Provider [phone] Senia Tovar MD Primary Care Provider [phone] Reason for Visit * Reason Comments Medication Refill Encounter Details Date Type Department Care Team (Late st Contact Info) Description 04/05/2021 Refill [facility] Gastroenterology, [place] [address] [place] [address] Nohelia Medrano MD [address] [place] [phone] Generalized abdominal pain Social History Tobacco Use [...] generalized documented in this encounter Care Teams Drapery Counselor Relationship Specialty Start Date End Date Inna Giron PA [address] [place] [address] [place] [address] PCP - General Physician Negative Developer 04/01/20 07/06/21 Senia Tovar MD [address] [place] [address] [place] [address] PCP - General General Pediatrics 07/07/21 documented as of this encounter
--- NOTE | 2025-02-13 15:42 | MHC.SL.IMP ---
Date of Plan of Treatment: 02/13/25 Onset of Symptoms/Illness: 12/13/24 Date Treatment Started: 02/13/25 Admitting Diagnosis: Asthma, acid reflux, fibromyalgia Primary Speech & Language Diagnosis: R13.10 Dysphagia Reason for Today's Visit: 53804 Modified Barium Swallow Study Pre-evaluation Dietary Consistencies: Regular Pre-evaluation Liquid Consistency: Thin Pre-evaluation Medication Administration: Whole with Liquid Medical History: Modified Barium Swallow Study Fluoroscopic Evaluation of Swallowing Function CPT Code 26624 Evaluation Year: 2024 Reason for Study: Patient c/o episodes intermittent aspiration on liquids Referring Physician: Scotty Mercado MD Evaluating Clinician: Ying Zamora MA, CCC-AGENCY OWNER Study Number: 1 Patient Name: Jaya Mckeon Status: Outpatient, Ambulatory Age: 24 Sex: Male Medical History Medical History (Updated 12/14/24 @ 14:41 by Merritt Patterson NP) Nausea Internal hemorrhoid Suicidal ideation Palpitations Fibromyalgia Sleep apnea IBS (irritable bowel syndrome) Asthma ETOH abuse Dizziness Atopic dermatitis Hypersomnolence Difficulty sleeping Pain in right hip Balanitis Adjustment reaction with mixed disturbance of emotions and conduct Depression Acid reflux Anxiety Constipation Surgical History Hx of colonoscopy (~11/26/24) H/O endoscopy Current (pre-evaluation) Intake/Diet: Route: PO Diet Grade: Regular Liquid Consistencies: Thin Pre-Study Functional Oral Intake Scale (FOIS): 7- Total oral intake with no restrictions Pain: None reported at time of study SUBJECTIVE: Patient is a 24 year old male, active smoker, with history of fibromyalgia, asthma, ETOH abuse, and acid reflux. Patient was referred for a modified barium swallow study by his access services assistant, after he complained of having intermittent episodes aspirating on liquids. Today, patient reports ?feeling liquid disperse in [his] chest? when he swallows,? but denies coughing or choking on liquids. He says he had just taken a sip of his Vitamin Water prior to this appointment and felt it spread throughout his chest. He denied pain with swallowing or globus sensation. Patient endorsed having chronic reflux ?for years,? for which he reports taking a PPI. Food and Liquid Trials: Oral Impairment: Lip Closure: Did not test Oral Impairment: Tongue Control During Bolus Hold: 2=Posterior escape of less than half of bolus Oral Impairment: Bolus Preparation/Mastication: 0=Timely and efficient chewing and mashing Oral Impairment: Bolus Transport/Lingual Motion: 1= Delayed initiation of tongue motion Oral Impairment: Oral Residue: 2=Residue collection on oral structures Oral Impairment:Initiation of Pharyngeal Swallow: 1=Bolus head in valleculae Pharyngeal Impairment: Soft Palate Elevation: 0=No bolus between soft palate (SP)/pharyngeal wall (PW) Pharyngeal Impairment: Laryngeal Elevation: 1=Partial thyroid cartilage/arytenoids to epiglottic petiole movement Pharyngeal Impairment: Anterior Hyoid Excursion: 0=Complete anterior movement Pharyngeal Impairment: Epiglottic Movement: 1=Partial inversion Pharyngeal Impairment: Laryngeal Vestibular Closure:: 1=Incomplete: narrow column air/contrast in laryngeal vestibule Pharyngeal Impairment: Pharyngeal Stripping Wave: 0=Present: complete Pharyngeal Impairment: Pharyngeal Contraction: Did not test Pharyngeal Impairment: Pharyngoesophageal Segment Openin=Complete distension and complete duration: no obstruction of flow Pharyngeal Impairment: Tongue Base (TB) Retraction: 1=Trace column of contrast/air between TB and posterior PW Pharyngeal Impairment: Pharyngeal Residue: 1=Trace residue within or on pharyngeal structures Pharyngeal Impairment: Esophageal Clearance Upright Position: Did not test Impressions and Recommendations OBJECTIVE: Time-out: performed at 10:45 Evaluation Start: 10:30; Stop: 10:35 Patient Positioning: Standing Viewing Planes: LATERAL ONLY Contrast: MBSImP? Standardized Protocol using commercially prepared, standardized Barium viscosities, including: Varibar? THIN LIQUID (40% w/v, <15 cps) , Varibar? PUDDING (40% w/v, <7500-8477 cps) , 1/2 Shortbread Cookie (1 x1 x.25 ) MBSImP ID: [id number] MBSImP Results: Lip closure for intraoral bolus containment could not be assessed due to logistical reasons not related to physiologic impairment. Tongue control during bolus hold resulted in posterior escape of less than half of the bolus. Bolus preparation and mastication resulted in timely and efficient chewing and mashing. Bolus transport/lingual motion demonstrated delayed initiation of tongue motion. Oral residue was a collection on oral structures. Initiation of the pharyngeal swallow occurred when the bolus head was in the valleculae. Soft palate elevation resulted in no bolus between the soft palate and the pharyngeal wall. Laryngeal elevation was decreased, with partial superior movement of the thyroid cartilage/partial approximation of the arytenoids to the epiglottic petiole. Anterior hyoid excursion demonstrated complete anterior movement. Epiglottic movement resulted in partial inversion. Laryngeal vestibular closure was incomplete, with a narrow column of air/contrast noted within the laryngeal vestibule at the height of the swallow. Pharyngeal stripping wave was present and complete. Pharyngeal contraction could not be determined due to logistical reasons not related to physiologic impairment. Pharyngoesophageal segment opening was completely distended for complete duration with no obstruction of bolus flow. Tongue base retraction allowed a trace column of contrast or air between the retracted tongue base and the posterior pharyngeal wall. Pharyngeal residue was a trace within or on pharyngeal structures. Esophageal clearance in the upright position could not be assessed due to logistical reasons not related to physiologic impairment. Oral Impairment Score: 6 (absence of score, component 1) Pharyngeal Impairment Score: 3 (absence of score, component 13) Esophageal Impairment Score: --- (absence of score, component 17) Laryngeal Penetration and Aspiration: Neither penetration nor aspiration was observed in today's study with Cookie, Pudding-thick. Penetration was observed in today's study. Thin Contrast entered the airway, remained above the vocal folds, and was ejected from the airway. ASSESSMENT: This exam was performed by the radiologist and the speech pathologist. Patient was standing for lateral view. He fed himself independently and trialed the following consistencies: -Thin liquid (via individual sips & rapid sequential sips) -Puree (mixture applesauce w/ barium pudding) -Regular (shortbread cookies coated w/ barium pudding) Delayed AP transport with brisk lingual motion. There was premature posterior escape from the oral cavity, with contrast collecting in the valleculae and pyriforms prior to initiation of the pharyngeal swallow trigger. Mastication was timely and efficient, with intact rotary chewing pattern. Pharyngeal swallow trigger was initiated as the bolus head reached the valleculae. Post-swallow, there was mild residue on the posterior tongue, which cleared on secondary swallows. No evidence of nasopharyngeal reflux. Partial laryngeal elevation, with incomplete epiglottic inversion and incomplete laryngeal vestibular closure. Flash penetration seen intermittently with trials of thin liquid. A trace amount of contrast entered the airway above the vocal folds and immediately and spontaneously cleared, with no subsequent aspiration. Trace pooling seen in the valleculae with trials of thin liquid, which cleared on secondary swallows. Complete pharyngeal clearance seen with trials of puree and regular solid. The following compensatory strategies have not been used until today's study, but when employed, improved swallowing function: Additional Swallow(s) per Bolus eliminated Oral Residue Liquid Intake Recommendation: Thin Dietary Recommendations: Regular Medication Administration: Whole with Liquid Please contact the pharmacy regarding appropriate crushable or liquid drug formulations that are available whenever modified delivery is recommended. Compensatory Strategies Recommended: Sitting Upright (90 deg), Small Bites and Sips, Rate of Ingestion Change Supervision during eating and or drinking: None Needed Recommendation for Speech Therapy: NA:Typical Evaluation Text Comment: Intake Recommendations: Route: PO Diet Grade: Regular Liquid Consistencies: Thin Post-Study Functional Oral Intake Scale (FOIS): 7- Total oral intake with no restrictions Flash penetration seen intermittently with trials of thin liquid. No evidence of aspiration during this exam. Good oral and pharyngeal clearance. Suggested Referrals: The patient might benefit from a referral to: Gastroenterology Indication for Referral: Patient reports having chronic reflux ?for years.? Therapy Recommendations: Speech therapy and diet modification are not warranted at this time. Patient may benefit from GI consult to address chronic reflux. Continue w/ Regular texture foods and Thin liquids, with behavioral strategies to manage reflux: upright positioning during PO intake and at least 60 minutes afterwards, avoiding dietary triggers, avoid eating before bedtime, etc. Clinician - Supplemental, Miscellaneous Communication: It is important to note MBSS objective studies are snapshots in time and Patient function might vary with factors such as time of day or concomitant medical conditions. For this reason, the final treatment plan for this patient should rest with their medical care team. Additional recommendations should be considered with the totality of the Patient in mind. Thank for the opportunity to participate in the care of this patient. If you have any questions about the content of this report, please contact the [facility] at [facility]. Education: Education regarding findings from today's study and plans for therapy were provided to Patient only through Verbal Instruction. Understanding was expressed by the Patient only. Funeral Planning Counselor Clinician/Clinical Fellow: No Supervisory Statement: N/A Speech Language Pathologist: Ying Zamora M.A., CCC-AGENCY OWNER
== END 2025-02-13 10:03 | disposition home or self-care (01) ==
LOC: HO.XRAY 10:02
PROVIDERS: PCP Family Medicine; Visit Provider Internal Medicine Pulmonary Disease
DX: G43.909 Migraine, unspecified, not intractable, without status migrainosus (principal); G47.00 Insomnia, unspecified; F41.9 Anxiety disorder, unspecified; R13.10 Dysphagia, unspecified; F10.90 Alcohol use, unspecified, uncomplicated; Z79.899 Other long term (current) drug therapy
CPT/HCPCS: 74230; 92611

== ENCOUNTER → 2025-02-13 10:30 | Outpatient (BNV) | payer OTHER, SELFPAY | PROVIDERS: PCP Family Medicine; Visit Provider Radiology Diagnostic Radiology | DX: R13.10 Dysphagia, unspecified (principal) | CPT/HCPCS: 74230 ==

== ENCOUNTER 2025-02-13 13:42 | Outpatient (AMB) | payer OTHER, SELFPAY ==
--- NOTE | 2025-02-13 13:52 | A.OFFVIS_ITS ---
Intake Visit Reasons: migriane Allergies banana Allergy (Severe, Verified 02/13/25 14:01) Anaphylaxis aspirin (ASA) Allergy (Intermediate, Verified 02/13/25 14:01) Swelling avocado Allergy (Intermediate, Verified 02/13/25 14:01) Swelling gluten Allergy (Intermediate, Verified 02/13/25 14:01) Abdominal Pain ibuprofen (IBUPROFEN) Allergy (Intermediate, Verified 02/13/25 14:01) ABD PAIN AND REFLUX lactose Allergy (Intermediate, Verified 02/13/25 14:01) Abdominal Pain house dust Allergy (Unknown, Verified 02/13/25 14:01) Unknown venlafaxine Adverse Reaction (Mild, Verified 02/13/25 14:01) vomiting, disorintation seasonal Allergy (Unknown, Uncoded 02/13/25 14:01) unknown Medication List - Last Reconciled 02/13/25 by Zuleika Riley CNP acamprosate 666 mg (2 x 333 mg) PO TID 30 days albuterol sulfate 90 mcg/actuation (Ventolin HFA) 2 puffs inhalation Q4-6H PRN amitriptyline 50 mg PO BEDTIME 30 days aripiprazole (Abilify) 5 mg PO DAILY 30 days budesonide-formoterol 80-4.5 mcg/actuation (Symbicort) 2 puffs inhalation BID calcium polycarbophil (FiberCon) 625 mg PO DAILY 30 days dicyclomine 10 mg PO TID 90 days esomeprazole magnesium 20 mg PO DAILY hydrocortisone 2.5% 1 appl [place] USEASDIRECTD PRN inhalational spacing device ([facility] spacer) ketoconazole 2% 1 appl topical DAILY loratadine (Allergy Relief (loratadine)) 10 mg PO DAILY ondansetron 4 mg translingual Q8H PRN polyethylene glycol 3350 (Miralax) 17 grams PO DAILY 30 days sennosides (senna) 8.6 mg PO DAILY triamcinolone acetonide 0.1% 1 appl topical DAILY HPI Comments Details: 24-year-old man with depression, anxiety, alcohol-use disorder on acamprosate, and migraines. He returned to office in 10/2024 after about 16 months with headaches happening almost every other day. Pain was usually to right side of head, behind eye, throbbing-type, with photophobia and sonophobia. He also complained of increased forgetfulness over the last few months with trouble focusing and concentrating, and difficulty sleeping. He has been without amitriptyline for few months as he was having trouble getting medication refilled. Headaches were happening about 3-4x/week. Sleep was still not so good, getting about 3 hours/night. With amitriptyline, he was able to fall asleep easier, but still struggled to stay asleep. He was under more stress lately due to many factors and was working with therapist. He was drinking less. Hx of somatic complaints, depression, anxiety, psychosomatic tendencies. In 06/2021, became very lightheaded and had syncopal episode, felt weaker after. Blurry vision, loses vision, sometimes loses feeling in arms, other times feels off balance and uncoordinated. Trouble focusing, has peripheral visual constriction, feels he is going to fall. Migraines since age 16, bad one in 02/2022 with photophobia, occur about 1x/month. [facility] Medical History (Updated 02/13/25 @ 14:13 by Zuleika Riley, [facility]) Nausea Internal hemorrhoid Suicidal ideation Palpitations Fibromyalgia Sleep apnea IBS (irritable bowel syndrome) Asthma ETOH abuse Dizziness Atopic dermatitis Hypersomnolence Difficulty sleeping Pain in right hip Balanitis Adjustment reaction with mixed disturbance of emotions and conduct Depression Acid reflux Anxiety Constipation Surgical History Hx of colonoscopy (~11/26/24) H/O endoscopy Family History Mother Anxiety Depression Maternal Grandfather Substance abuse Maternal Grandmother Anxiety Depression Father Arthritis Social History Household Members: Family Housing: House Do you presently have visiting nurse or other home services: No Alcohol intake: current Alcohol intake frequency: 3 or more drinks per day Alcohol type: hard liquor Comment: every day Patient Tobacco Use Status: Current everyday Tobacco user Tobacco use type: Cigarette Cigarette Packs Per Day: 0 Cigarettes Per Day: 0 e-Cigarette/Vaping Use: Currently Using Second Hand Smoke Exposure: No Substance Use Type: Marijuana service: No Current occupational status: employed 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 Sexual orientation: Straight/Heterosexual Cognitive needs: No Hearing needs: No Vision needs: No Review of Systems Const Denies chills, Denies daytime sleepiness, Reports difficulty sleeping, Reports fatigue, Denies fever(s), Denies frequent falls, Reports headache(s), Denies increased appetite, Denies poor appetite, Reports snoring, Denies weakness, Denies weight gain and Denies weight loss Eyes Denies loss of vision ENT Denies vertigo, Reports dizziness, Reports headache(s) and Reports neck pain Card Denies chest pain at rest, Denies chest pain with activity, Denies syncope, Denies leg edema, Denies palpitations, Denies dyspnea and Denies dyspnea on exertion Resp Denies cough, Denies dyspnea, Denies dyspnea on exertion and Reports snoring GI Denies abdominal pain, Denies constipation, Denies heartburn, Denies diarrhea and Denies nausea Reports urinary frequency, Denies urinary incontinence and Denies urinary urgency Musc Denies abnormal gait, Reports back pain, Denies myalgias, Denies arthralgias, Reports neck pain, Reports numbness and Reports tingling Neuro Denies abnormal gait, Denies vertigo, Reports dizziness, Denies syncope, Denies frequent falls, Reports headache(s), Denies lack of coordination, Denies loss of vision, Denies memory loss, Reports numbness, Denies Other visual disturbances, Denies restless legs, Denies seizure-like activity, Reports tingling, Denies paresthesias, Denies tremor(s) and Denies weakness Psych Reports anxiety, Reports depression, Denies auditory hallucinations, Denies memory loss and Denies visual hallucinations Endo Reports fatigue and Denies palpitations Physical Exam Const Other: General Appearance:? normal, in no acute distress. Heart:? S1, S2 normal, no murmurs. Lungs:? clear anteriorly and posteriorly. Musculoskeletal:? normal. Extremities:? no edema. Psych:? alert, oriented, cognitive function intact, cooperative with exam. Neuro Other: Abnormal Neurological Findings:?Some give away weakness on R.? Mental Status: alert and oriented X 3. Normal attention, orientation, memory, and affect. Cranial Nerves: Pupils are equal, round, and reactive to light. External ocular muscles are intact. Visual rivera are full, no ptosis. Face is symmetrical, no facial weakness or droop. Facial sensations are normal. Tongue protrudes in midline. Palate elevates symmetrically. Shoulder shrugging is normal Motor Examination: As above, otherwise normal muscle tone, bulk and strength. No atrophy or fasciculations. No drift of the extended upper extremities. DTR 2+. Plantars are flexor. Straight Leg Raisin degrees. Sensory Exam: Normal light touch, temperature, pinprick, vibration, and joint- position sensations. Rhomberg sign is absent. Coordination: No ataxia. No titubation. Gait Exam: Within normal limits. Cerebellar Signs: [id number] is okay. Extrapyramidal System: No tremor, rigidity with normal facial expressions. No bradykinesia. No bradyphrenia. Normal arm swing and posture. No propulsion or retropulsion. Speech: Normal. Results Reviewed Results Reviewed: Labs 09/2024: CBC, CMP, Vitamin B 12 and Folate - ok CT head at [facility] 05/05/2024: No acute intracranial findings. MRI brain at [facility] 04/28/2023: Unremarkable noncontrast MRI of the brain. No evidence of demyelinating disease as queried. Assessment & Plan Assessment & Plan (1) Migraine: Code(s): G43.909 - Migraine, unspecified, not intractable, without status migrainosus Category: Medical Qualifiers: Migraine type: unspecified Status migrainosus presence: without status migrainosus Intractability: not intractable Qualified Code(s): G43.909 - Kong asif, unspecified, not intractable, without status migrainosus Plan: Amitriptyline refilled, use/side effects reviewed. Continue amitriptyline 50mg 1 tablet at bedtime. Follow up in 3 months or sooner as needed. (2) Insomnia: Code(s): G47.00 - Insomnia, unspecified Category: Medical Qualifiers: Insomnia type: unspecified Qualified Code(s): G47.00 - Insomnia, unspecified Plan: Amitriptyline may also help with sleep.. (3) Anxiety: Comment: extreme Code(s): F41.9 - Anxiety disorder, unspecified Category: Medical Plan: Continue working with therapist. (4) Alcohol use disorder: Code(s): F10.90 - Alcohol use, unspecified, uncomplicated Category: Medical Plan: Continue to work with therapist, comprehensive care. Alcohol use can affect memory - avoid alcohol use. Medications: Changed From amitriptyline 50 mg PO BEDTIME 30 days 30 tabs 0RF To amitriptyline 50 mg PO BEDTIME 90 tabs 1RF 90 days Coding Level of Care Code Est Pt Level 4 (67720) Diagnoses Migraine without status migrainosus, not intractable, unspecified migraine type G43.909 Migraine type: unspecified Status migrainosus presence: without status migrainosus Intractability: not intractable Insomnia, unspecified type G47.00 Insomnia type: unspecified Anxiety F41.9 Alcohol use disorder F10.90
== END 2025-02-13 14:21 | disposition home or self-care (01) ==
LOC: HO.HSM 13:43
PROVIDERS: PCP Family Medicine; Visit Provider Registered Nurse
DX: G43.909 Migraine, unspecified, not intractable, without status migrainosus (principal); G47.00 Insomnia, unspecified; F41.9 Anxiety disorder, unspecified; F10.90 Alcohol use, unspecified, uncomplicated
CPT/HCPCS: 99214

== ENCOUNTER → 2025-03-05 10:43 | Outpatient (REF) | payer OTHER, SELFPAY ==
--- NOTE | 2025-03-05 10:45 | CA_ITS ---
Acquisition Time: 2025-03-05 10:56:43 Total Exercise Time: 00:07:50 Test Indications: CP Medications: SEE H&P Protocol: SABRA Max HR: 179 BPM 90% of Pred: 198 BPM Max BP: 150/50 mmHG Max Work Load: 9.8 METS Exercise stress test with exercise 7 mins 50 secs of Sabra Protocol, achieving 90% MPHR, with reports of SOB, no chest pain, without any arrythmias, with normotensive response to exercise. Without any EKG changes meeting criteria for ischemia. In recovery, breathing improved and pt feeling back to baseline. Echo images obtained by tech at rest and post peak exercise. Definity contrast utilized. Test reviewed with Dr. Gilliam. Referred By: Merritt Patterson Electronically Signed By: Merritt Patterson
== END ==
LOC: HO.CARD 10:43
PROVIDERS: PCP Family Medicine
DX: R00.2 Palpitations (principal); R07.9 Chest pain, unspecified
CPT/HCPCS: 93350; Q9957

== ENCOUNTER → 2025-03-05 10:45 | Outpatient (BNV) | payer OTHER, SELFPAY | PROVIDERS: PCP Family Medicine | DX: R06.02 Shortness of breath (principal) | CPT/HCPCS: 93016; 93018; 93350; 93352 ==

== ENCOUNTER 2025-03-07 12:45 | Outpatient (REF) | payer OTHER, SELFPAY ==
[2025-03-07 13:55] LABS: MANUAL DIFF FLAG NO
[2025-03-07 14:29] LABS: Hematocrit 44.3 % (42.0-52.0); Hemoglobin 14.3 g/dl (14.0-18.0); Imm Gran Abs Auto 0.02 X10*3/uL (0.00-0.03); Imm Gran Pct Auto 0.3 % (0.0-0.4); Lymphocytes Absolute Auto 1.9 X10*3/uL (1.2-4.9); Mean Corpuscular HGB Conc 32.3 g/dl (31.0-36.0); Mean Corpuscular Hemoglobin 26.8 pg (27.0-33.0); Mean Corpuscular Volume 83.0 fL (80.0-98.0); NRBC Abs Auto 0.000 X10*3/uL (0.0-0.012); NRBC Pct Auto 0.0 /100WBC (0.0-0.2); Platelet Count 293 X10*3/uL (160-400); Red Blood Count 5.34 X10*6/uL (4.60-5.80); White Blood Count 7.1 X10*3/uL (4.8-10.8)
== END 2025-03-07 12:46 | disposition home or self-care (01) ==
LOC: HO.LAB 12:45
PROVIDERS: PCP Family Medicine; Visit Provider Nurse Practitioner Family
DX: K21.9 Gastro-esophageal reflux disease without esophagitis (principal); R19.5 Other fecal abnormalities; K58.1 Irritable bowel syndrome with constipation; Z79.899 Other long term (current) drug therapy
CPT/HCPCS: 36415; 85025; 99212

== ENCOUNTER 2025-03-07 12:45 | Outpatient (AMB) | payer OTHER, SELFPAY ==
--- NOTE | 2025-03-07 12:53 | A.OFFVIS_ITS ---
Vital Signs 03/07/25 13:01 Height 5 ft 5 in Weight 195 lb BMI 32.4 BP 116/60 Blood Pressure Location Lt brachial Position Sitting Pulse 86 Pulse Source Pulse Oximeter Pulse Oximetry (%) 95 Oxygen Delivery Method Room Air Intake Visit Reasons: follow up Intake Note: Patient follow up for acid reflux Patient cc: C/O GERD + nausea persistence despite current therapies. Pt also reports new onset of melena within the last 3 weeks. Reports occurrences q3-4 days / week. Principal Law Clerk Required: No Accompanied by: Significant Other Allergies banana Allergy (Severe, Verified 03/07/25 12:58) Anaphylaxis aspirin (ASA) Allergy (Intermediate, Verified 03/07/25 12:58) Swelling avocado Allergy (Intermediate, Verified 03/07/25 12:58) Swelling gluten Allergy (Intermediate, Verified 03/07/25 12:58) Abdominal Pain ibuprofen (IBUPROFEN) Allergy (Intermediate, Verified 03/07/25 12:58) ABD PAIN AND REFLUX lactose Allergy (Intermediate, Verified 03/07/25 12:58) Abdominal Pain house dust Allergy (Unknown, Verified 03/07/25 12:58) Unknown venlafaxine Adverse Reaction (Mild, Verified 03/07/25 12:58) vomiting, disorintation seasonal Allergy (Unknown, Uncoded 03/07/25 12:58) unknown HPI HPI follow up: Details: Patient is a 24-year-old male with PMH of asthma, depression, anxiety and acid reflux. Patient is accompanied by his girlfriend. Follow-up visit for his acid reflux and irritable bowel syndrome (IBS). Regarding his acid reflux, he reports a return of symptoms. He has been prescribed esomeprazole 40 mg to be taken before a meal, but he has been taking it inconsistently, about 4-5 times per week rather than daily. For his IBS, he reports inconsistent bowel movements, with episodes of constipation lasting 2-3 days, followed by days with 2-3 bowel movements. He uses MiraLax as needed, about twice a week, and also takes a fiber supplement (Fibercon) and Senna. His colonoscopy on October 19 was normal, except for findings of internal hemorrhoids. The patient also reports a new issue of black, dark stools which started a few weeks ago and occurs 3-4 times per week. An upper endoscopy showed duodenitis. The patient reports reducing his alcohol intake since late December but still drinks occasionally. He continues to take dicyclomine for abdominal pain and discomfort associated with eating and notes medication as effective. His other medical history includes headaches, for which he sees a neurologist. [facility] Medical History (Updated 03/07/25 @ 13:13 by Tamara Mayo CNP) Dark stools Nausea Internal hemorrhoid Suicidal ideation Palpitations Fibromyalgia Sleep apnea IBS (irritable bowel syndrome) Asthma ETOH abuse Dizziness Atopic dermatitis Hypersomnolence Difficulty sleeping Pain in right hip Balanitis Adjustment reaction with mixed disturbance of emotions and conduct Depression Acid reflux Anxiety Constipation Surgical History Hx of colonoscopy (~11/26/24) H/O endoscopy Family History Mother Anxiety Depression Maternal Grandfather Substance abuse Maternal Grandmother Anxiety Depression Father Arthritis Social History Household Members: Family Housing: House Do you presently have visiting nurse or other home services: No Alcohol intake: current Alcohol intake frequency: 3 or more drinks per day Alcohol type: hard liquor Comment: every day Patient Tobacco Use Status: Current everyday Tobacco user Tobacco use type: Cigarette Cigarette Packs Per Day: 0 Cigarettes Per Day: 0 e-Cigarette/Vaping Use: Currently Using Second Hand Smoke Exposure: No Substance Use Type: Marijuana service: No Current occupational status: employed 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 Sexual orientation: Straight/Heterosexual Cognitive needs: No Hearing needs: No Vision needs: No Review of Systems Const Reports as per HPI ENT Reports as per HPI Card Reports as per HPI Resp Reports as per HPI GI Reports as per HPI Reports as per HPI Physical Exam Const General: healthy appearing, no acute distress and well developed Nutritional Appearance: average body habitus Orientation/consciousness: patient oriented x3 HEENT Head: Yes normal to inspection, Yes normocephalic and Yes atraumatic Face and sinus: Yes normal facial exam Eyes General: appearance normal, both eyes and all related structures Neck Neck: Yes normal visual inspection Resp Effort & Inspection: normal respiratory effort, able to speak in complete sentences, no tracheal deviation and symmetric chest movement Cardio Jugular venous distension: no JVD GI Inspection: Yes normal to inspection, No distended, Yes obesity and Yes striae Palpation (GI): Soft to palpation, not firm, nontender and No hepatosplenomegaly present Auscultation: normal bowel sounds Neuro General: patient oriented x3 Gait exam (Neuro): Normal gait present Psych Appearance: grossly normal Mental Status: mental status grossly normal Speech and movement: Normal speech and movement present Affect: normal affect Attitude: cooperative Thought process: Circumstantial thought process present Thought content: Normal thought content present Insight: Fair insight present (Psych) Judgement: Good judgement present (Psych) Assessment & Plan Assessment & Plan (1) Dark stools: Code(s): R19.5 - Other fecal abnormalities Category: Medical Plan: The patient's report of black stools is concerning for a GI bleed, especially given the known duodenitis from a prior endoscopy, which may be exacerbated by alcohol use. - Recommended complete cessation of alcohol. - Blood work will be ordered to check for anemia. - A stool sample will be collected at home to test for blood. - The patient was advised to go to the hospital if he experiences a large volume of blood in his stool. - Follow-up will occur after test results are available. (2) Acid reflux: Comment: 10/19/24 Upper endoscopy-Normal esophagus with empirical dilation, Normal stomach, Bulbar duodenitis Code(s): K21.9 - Gastro-esophageal reflux disease without esophagitis Category: Medical Qualifiers: Esophagitis presence: esophagitis presence not specified Qualified Code(s): K21.9 - Gastro-esophageal reflux disease without esophagitis Plan: The patient's reflux symptoms have returned, which is likely due to inconsistent medication adherence. - He was instructed to take esomeprazole 40 mg daily, 30 minutes before eating, to improve efficacy. - Advise we hold on medication adjustment until he has been compliant with the daily regimen to properly assess its effectiveness. Pt is agreeable. (3) IBS (irritable bowel syndrome): Comment: 10/19/24 colonoscopy complete with adequate prep- normal mucosa and terminal ileum mucosa, Internal hemorrhoids Code(s): K58.9 - Irritable bowel syndrome, unspecified Category: Medical Qualifiers: Irritable bowel syndrome type: with constipation Qualified Code(s): K58.1 - Irritable bowel syndrome with constipation Plan: The patient continues to experience irregular bowel patterns with constipation. - He was advised to try taking MiraLAX daily and to titrate to stools pattern, to avoid loose stools. - He should continue with fiber supplements, a high-fiber diet, and adequate water intake. - He can continue taking dicyclomine as needed for abdominal pain. Plan Follow-up after labs or sooner as needed Time: I spent a total of 25 minutes on the date of encounter which includes: Preparing to see the patient (reviewed previous documentation, test results and medical history) Performing a medically appropriate exam and/or evaluation Ordering medications, tests, and procedures Documenting clinical information in the health record Orders: Orders AMB Stool Occult Bld x3 gFOBT Today R19.5 - Other fecal abnormalities Complete Blood Count Auto Diff Today R19.5 - Other fecal abnormalities Coding Level of Care Code Established Pt Est Pt Level 3 (26372) Patient Type Established Diagnoses Dark stools R19.5 Gastroesophageal reflux disease, unspecified whether esophagitis present K21.9 Esophagitis presence: esophagitis presence not specified Irritable bowel syndrome with constipation K58.1 Irritable bowel syndrome type: with constipation
[2025-03-07 13:01] VITALS: BP 116/60; PULSE 86; O2SAT 95; BMI 32.4
--- OUTSIDE RECORDS SUMMARY | 2025-03-07 16:37 | XMS_ITS | Encounter Summary ---
Author Organization [facility] Address [address] [place] [address] Care Team Providers Care Physician Internist Name Role Phone Inna Giron Primary Care Provider Senia Tovar MD Primary Care Provider [phone] Reason for Visit * Reason Comments Medication Refill Encounter Details Date Type Department Care Team (Late st Contact Info) Description 06/20/2020 Refill [facility] Gastroenterology, [place] [address] [place] [address] Nohelia Medrano MD [address] [place] [address] Generalized abdominal pain Social History Tobacco Use [...] generalized documented in this encounter Care Teams Physician Internist Relationship Specialty Start Date End Date Inna Giron PA [address] [place] [address] [address] [place] [address] PCP - General Physician Investment Banking Manager 04/01/20 07/06/21 Senia Tovar MD [address] [place] [address] [place] [address] PCP - General General Pediatrics 07/07/21 documented as of this encounter
--- OUTSIDE RECORDS SUMMARY | 2025-03-07 16:37 | XMS_ITS | Encounter Summary ---
Author Organization [facility] Address [address] [place] [address] Care Team Providers Care Composition Mixer Name Role Phone Senia Tovar MD Primary Care Provider [phone] Reason for Visit * Reason Comments Medication Refill Encounter Details Date Type Department Care Team (Late st Contact Info) Description 11/30/2021 Refill [facility] Gastroenterology, [place] [address] [place] [address] Nohelia Medrano MD [address] [place] [address] Generalized abdominal pain Social History Tobacco Use [...] generalized documented in this encounter Care Teams Composition Mixer Relationship Specialty Start Date End Date Senia Tovar MD [address] [place] [address] [place] [address] PCP - General General Pediatrics 07/07/21 documented as of this encounter
--- OUTSIDE RECORDS SUMMARY | 2025-03-07 16:37 | XMS_ITS | Encounter Summary ---
Author Organization [facility] Address [address] [place] [address] Care Team Providers Care Crusher Feeder Name Role Phone Inna Giron Primary Care Provider [phone] Senia Tovar MD Primary Care Provider [phone] Reason for Visit * Reason Comments Medication Refill Encounter Details Date Type Department Care Team (Late st Contact Info) Description 10/08/2020 Refill [facility] Gastroenterology, [place] [address] [place] [address] Nohelia Medrano MD [address] [place] [address] Generalized abdominal pain Social History Tobacco Use [...] generalized documented in this encounter Care Teams Crusher Feeder Relationship Specialty Start Date End Date Inna Giron PA [address] [place] [address] [place] [address] PCP - General Physician Human Projectile 04/01/20 07/06/21 Senia Tovar MD [address] [place] [address] [place] [address] PCP - General General Pediatrics 07/07/21 documented as of this encounter
--- OUTSIDE RECORDS SUMMARY | 2025-03-07 16:37 | XMS_ITS | Encounter Summary ---
Author Organization [address] [address] Care Team Providers Care Camp Housekeeper Name Role Phone Senia Tovar MD Primary Care Provider [phone] Reason for Visit * Reason Comments Medication Refill Encounter Details Date Type Department Care Team ([facility] st Contact Info) Description 11/27/2021 Refill [facility] [address]astroenter[address] [address] Nohelia Medrano MD [address] [place] [address] Generalized abdominal pain Social History Tobacco Use [...] did not know. He was very confused. Unisaw Operator read him the office visit plan to [...] generalized documented in this encounter Care Teams Camp Housekeeper Relationship Specialty Start Date End Date Senia Tovar MD [address] [place] [address] [place] [address] PCP - General General Pediatrics 07/07/21 documented as of this encounter
--- OUTSIDE RECORDS SUMMARY | 2025-03-07 16:37 | XMS_ITS | Encounter Summary ---
Author Organization [facility] Address [address] [place] [address] Care Team Providers Care Frozen Meat Cutter Name Role Phone Inna Giron Primary Care Provider [phone] Senia Tovar MD Primary Care Provider Reason for Visit * Reason Comments Medication Refill Encounter Details Date Type Department Care Team (Late st Contact Info) Description 04/05/2021 Refill [facility] Gastroenterology, [place] [address] [place] [address] Nohelia Medrano MD [address] [place] [address] Generalized abdominal pain Social History Tobacco Use [...] generalized documented in this encounter Care Teams Frozen Meat Cutter Relationship Specialty Start Date End Date Inna Giorn PA [address] [place] [address] [place] [address] PCP - General Physician Director Of Rooms 04/01/20 07/06/21 Senia Tovar MD [address] [place] [address] [place] [address] PCP - General General Pediatrics 07/07/21 documented as of this encounter
--- OUTSIDE RECORDS SUMMARY | 2025-03-07 16:37 | XMS_ITS | Encounter Summary ---
Author Organization [facility] Address [address] [place] [address] Care Team Providers Care Transport Tech Name Role Phone Inna Giron Primary Care Provider [phone] Senia Tovar MD Primary Care Provider [phone] Reason for Visit * Reason Comments Medication Refill Encounter Details Date Type Department Care Team (Late st Contact Info) Description 09/02/2020 Refill [facility] Gastroenterology, [place] [address] [place] [address] Nohelia Medrano MD [address] [place] [address] Generalized abdominal pain Social History Tobacco Use [...] generalized documented in this encounter Care Teams Transport Tech Relationship Specialty Start Date End Date Inna Giron PA [address] [place] [address] [address] [place] [address] PCP - General Physician Storage Wharfage Clerk 04/01/20 07/06/21 Senia Tovar MD [address] [place] [address] [place] [address] PCP - General General Pediatrics 07/07/21 documented as of this encounter
--- OUTSIDE RECORDS SUMMARY | 2025-03-07 16:37 | XMS_ITS | Encounter Summary ---
Author Organization [facility] Address [address] [place] [address] Care Team Providers Care Senior Technical Project Manager Name Role Phone Senia Tovar MD Primary Care Provider [phone] Reason for Visit * Reason Comments Medication Refill Encounter Details Date Type Department Care Team (Late st Contact Info) Description 07/26/2021 Refill [facility] Gastroenterology, [place] [address] [place] [address] Nohelia Medrano MD [address] [place] [address] Generalized abdominal pain Social History Tobacco Use [...] documented in this encounter Care Teams Senior Technical Project Manager Relationship Specialty Start Date End Date Senia Tovar MD [address] [place] [address] [place] [address] PCP - General General Pediatrics 07/07/21 documented as of this encounter
--- OUTSIDE RECORDS SUMMARY | 2025-03-07 16:37 | XMS_ITS | Encounter Summary ---
Author Organization [facility] Address [address] [place] [address] Care Team Providers Care Dj Instructor Name Role Phone Inna Giron Primary Care Provider Senia Tovar MD Primary Care Provider [phone] Reason for Visit * Reason Comments Medication Refill Encounter Details Date Type Department Care Team (Late st Contact Info) Description 01/07/2021 Refill [facility] Gastroenterology, [place] [address] [place] [address] Nohelia Medrano MD [address] [place] [address] Generalized abdominal pain Social History Tobacco Use [...] generalized documented in this encounter Care Teams Dj Instructor Relationship Specialty Start Date End Date Inna Giron PA [address] [place] [address] [address] [place] [address] PCP - General Physician Dry Dip Worker 04/01/20 07/06/21 Senia Tovar MD [address] [place] [address] [place] [address] PCP - General General Pediatrics 07/07/21 documented as of this encounter
--- OUTSIDE RECORDS SUMMARY | 2025-03-07 16:37 | XMS_ITS | Encounter Summary ---
Author Organization [facility] Address [address] [place] [address] Care Team Providers Care Animal Anatomist Name Role Phone Inna Giron Primary Care Provider [phone] Senia Tovar MD Primary Care Provider [phone] Reason for Visit * Reason Comments Medication Refill Encounter Details Date Type Department Care Team (Late st Contact Info) Description 05/15/[address] [facility] Gastroenterology, [place] [address] [place] [address] Nohelia Medrano MD [address] [place] [address] Generalized abdominal pain Social History Tobacco Use [...] documented in this encounter Care Teams Animal Anatomist Relationship Specialty Start Date End Date Inna Giron PA [address] [place] [address] [address] [place] [address] PCP - General Physician Sales Lead 04/01/20 07/06/21 Senia Tovar MD [address] [place] [address] [address] [place] [address] PCP - General General Pediatrics 07/07/21 documented as of this encounter
--- OUTSIDE RECORDS SUMMARY | 2025-03-07 16:37 | XMS_ITS | Encounter Summary ---
Author Organization [facility] Address [address] [place] [address] Care Team Providers Care Statistical Developer Name Role Phone Inna Giron Primary Care Provider [phone] Senia Tovar MD Primary Care Provider [phone] Reason for Visit * Reason Comments Medication Refill Encounter Details Date Type Department Care Team (Late st Contact Info) Description 12/10/2020 [facility] [address] [place] [address] Nohelia Medrano MD [address] [place] [address] Generalized abdominal pain Social History Tobacco Use [...] generalized documented in this encounter Care Teams Statistical Developer Relationship Specialty Start Date End Date Inna Giron PA [address] [place] [address] [address] Jillian [place] [address] PCP - General Physician Manager Managing 04/01/20 07/06/21 Senia Tovar MD [address] [place] [address] [address] Jillian [place] [address] PCP - General General Pediatrics 07/07/21 documented as of this encounter
--- OUTSIDE RECORDS SUMMARY | 2025-03-07 16:37 | XMS_ITS | Encounter Summary ---
Author Organization [facility] Address [address] [place] [address] Care Team Providers Care Thermostatic Controls Supervisor Name Role Phone Senia Tovar MD Primary Care Provider Reason for Visit * Reason Comments Medication Refill Encounter Details Date Type Department Care Team ([facility] st Contact Info) Description 09/09/2021 Refill [facility] [address]astroenter[address] [address] Nohelia Medrano MD [address] [place] [address] Generalized abdominal pain Social History Tobacco Use [...] generalized documented in this encounter Care Teams Thermostatic Controls Supervisor Relationship Specialty Start Date End Date Senia Tovar MD [address] [place] [address] [address] [place], [place] [address] PCP - General General Pediatrics 07/07/21 documented as of this encounter
--- OUTSIDE RECORDS SUMMARY | 2025-03-07 16:37 | XMS_ITS | Encounter Summary ---
Author Organization [facility] Address [address] [place] [address] Care Team Providers Care Dental Scheduling Coordinator Name Role Phone Inna Giron Primary Care Provider [phone] Senia Tovar MD Primary Care Provider [phone] Reason for Visit * Reason Comments Medication Refill Encounter Details Date Type Department Care Team (Late st Contact Info) Description 07/03/2020 Refill [facility] Gastroenterology, [place] [address] [place] [address] Nohelia Medrano MD [address] [place] [address] Generalized abdominal pain Social History Tobacco Use [...] generalized documented in this encounter Care Teams Dental Scheduling Coordinator Relationship Specialty Start Date End Date Inna Giron PA [address] [place] [address] [place] [address] PCP - General Physician Pipeline Executive 04/01/20 07/06/21 Senia Tovar MD [address] [place] [address] [place] [address] PCP - General General Pediatrics 07/07/21 documented as of this encounter
--- OUTSIDE RECORDS SUMMARY | 2025-03-07 16:38 | XMS_ITS | Encounter Summary ---
Author Organization [facility] Address [address] [place] [address] Care Team Providers Care Retirement Manager Name Role Phone Inna Giron Primary Care Provider Senia Tovar MD Primary Care Provider [phone] Reason for Visit * Reason Comments Medication Refill Encounter Details Date Type Department Care Team (Late st Contact Info) Description 11/11/2020 Refill [facility] Gastroenterology, [place] [address] [place] [address] Nohelia Medrano MD [address] [place] [address] Generalized abdominal pain Social History Tobacco Use [...] generalized documented in this encounter Care Teams Retirement Manager Relationship Specialty Start Date End Date Inna Giron PA [address] [place] [address] [address] [place] [address] PCP - General Physician Etl Consultant 04/01/20 07/06/21 Senia Tovar MD [address] [place] [address] [place] [address] PCP - General General Pediatrics 07/07/21 documented as of this encounter
--- OUTSIDE RECORDS SUMMARY | 2025-03-07 16:38 | XMS_ITS | Clinical Summary ---
Author Organization [facility] Address [address] [place] [address] Care Team Providers Care Glass Cutting Machine Feeder Name Role Phone Senia Tovar MD Primary Care Provider [phone] Source Comments Please note that some or [...] so, obtain the minor's consent prior to disclosure.[facility] Allergies Active Allergy Reactions Criticality Noted [...] (06/30/2021): Added automatically from request for surgery [id number] Family History Medical History Relation Name Comments [...] patient's age to complete this topic Insurance [facility] Care Teams Glass Cutting Machine Feeder Relationship Specialty Start Date End Date Senia Tovar MD [address] [place] [address] [place] [address] PCP - General General Pediatrics 07/07/21
== END 2025-03-07 13:22 | disposition home or self-care (01) ==
LOC: HO.HGI 12:46
PROVIDERS: PCP Family Medicine; Visit Provider Nurse Practitioner Family
DX: R19.5 Other fecal abnormalities (principal); K21.9 Gastro-esophageal reflux disease without esophagitis; K58.1 Irritable bowel syndrome with constipation
CPT/HCPCS: 99213